=== PATIENT | female | born 1945 | race Caucasian/White ===

== ENCOUNTER 2016-07-11 05:33 | Emergency (ER) | payer OTHER ==
[~2016-07-11] VITALS: Ht 154.9 cm; Wt 128.0 kg
[~2016-07-11 05:33] MED LIST: ALBU1AER9 INH; ASPI81TA28 PO; ATOR-22 PO; BENZ100C6 PO; CALC1CAP36 PO; CHOL1000 PO; FERR325T PO; FRS/40 PO; GLIM4TAB2 PO; LISI-729 PO; METO50TA7 PO; MULT-506 PO; OMEG10007 PO; POTA10CA28 PO; PRLSR20 PO; SITA50TA PO; TRAM-453 PO
[2016-07-11 05:35] VITALS: TEMP 37.1; Ht 154.9 cm; Wt 128.0 kg
--- NOTE | 2016-07-11 06:05 | EMERGENCY ROOM VISIT NOTE ---
History Report prepared by Ronald: Srikanth Mosqueda Under the Supervision of: Dr. Shelly Nogueira M.D. First contact with patient: 05:44 Chief Complaint: ABDOMINAL PAIN Stated Complaint: BACK PAIN,ABD PAIN Nursing Triage Summary: c/o abdominal pain and back pain. has had a cough for 2 weeks. History of Present Illness The patient is a 70 year old female who presents to the Emergency Room with complaints of persistent upper abdominal pain since she woke up at 0400 this morning. The patient also has pain in her upper back. The pain is worsened when she coughs. She complains of nausea but denies vomiting. She also denies any fevers. The patient has had cold symptoms recently. The patient wears 1L of oxygen at home. Source of History: patient Onset: 0400 Position: abdomen (upper) Timing: other (persistent) Modifying Factors (Worsening): other (cough) Associated Symptoms: + back pain, + nausea, No fevers, No vomiting Review of Systems See HPI for pertinent positives & negatives. A total of 10 systems reviewed and were otherwise negative. Past Medical & Surgical Medical Problems: (1) COPD (chronic obstructive pulmonary disease) Family History Patient reports no known family medical history. Social History Smoking Status: Never Smoker Marital Status: Occupation Status: retired Current/Historical Medications Scheduled Albiglutide (Tanzeum), 50 MG INJ WK Albuterol Sulfate (Proair Respiclick), 2 PUFFS PO QID Aspirin (Aspirin Ec), 81 MG PO QAM Atorvastatin (Lipitor), 20 MG PO HS Calcitriol (Calcitriol), 0.25 MCG PO DAILY Cholecalciferol (Vitamin D-3), 400 UNIT PO DAILY Ferrous Sulfate (Ferrous Sulfate), 325 MG PO BID Fish Oil (Hurlock-3), 1 CAP PO BID Furosemide (Lasix), 40 MG PO QAM Insulin Glargine (Lantus Solostar), 34 UNITS SC QPM Lisinopril (Zestril), 5 MG PO QAM Metformin Hcl Er (Glucophage Er), 1,000 MG PO QAM Metoprolol Succ (Toprol Xl) (Toprol-Xl), 50 MG PO QAM Multivitamin (Multivitamin), 1 TAB PO QAM Omeprazole (Prilosec), 20 MG PO QAM Oxygen (Oxygen), 1 LITER NA CONTINOUS Potassium Chloride (Micro-K Ext Rel), 10 MEQ PO QAM Scheduled PRN Benzonatate (Tessalon Perles), 100 MG PO TID PRN for Cough Fexofenadine Hcl (Crissy Allergy), 1 TAB PO DAILY PRN for ALLERGIES Tramadol Hcl (Ultram), 50 MG PO Q6 PRN for PRN Allergies Coded Allergies: No Known Allergies (Verified , 02/18/16) Physical Exam Vital Signs Date Time Temp Pulse Resp B/P Pulse Ox O2 Delivery O2 Flow Rate FiO2 07/11/16 07:50 86 16 131/90 96 Nasal Cannula 1.0 07/11/16 06:34 65 07/11/16 06:18 69 20 123/68 95 Nasal Cannula 1.0 07/11/16 06:17 95 Nasal Cannula 1.0 07/11/16 06:17 95 Nasal Cannula 1.0 07/11/16 05:35 37.1 83 22 161/64 95 Room Air 1.0 Physical Exam Vital signs reviewed. General: Obese, chronically ill-appearing, no significant distress. HEENT: No scleral icterus, PERRLA, neck supple. Atraumatic. Cardiovascular: Regular rate and rhythm, no extra sounds. Pulmonary: Clear to auscultation bilaterally, normal work of breathing. Nasal cannula oxygen in place. Abdomen: Tender to palpation of the bilateral upper abdomen, minimal tympani to percussion. Musculoskeletal: Atraumatic, no peripheral edema. Neurologic: Patient awake alert and oriented x 3 Skin: Warm, dry, no rash Medical Decision & Procedures Laboratory Results 07/11/16 06:25 Red Blood Count 3.48, Mean Corpuscular Volume 88.5, Mean Corpuscular Hemoglobin 29.6, Mean Corpuscular Hemoglobin Concent 33.4, Mean Platelet Volume 9.2, Neutrophils (%) (Auto) 69.9, Lymphocytes (%) (Auto) 20.9, Monocytes (%) (Auto) 6.4, Eosinophils (%) (Auto) 2.1, Basophils (%) (Auto) 0.4, Neutrophils # (Auto) 5.25, Lymphocytes # (Auto) 1.57, Monocytes # (Auto) 0.48, Eosinophils # (Auto) 0.16, Basophils # (Auto) 0.03 07/11/16 06:25 Test 07/11/16 00:00 07/11/16 06:25 07/11/16 06:36 Urine Color YELLOW Urine Appearance CLEAR (CLEAR) Urine pH 5.5 (4.5-7.5) Urine Specific Davey 1.014 (1.000-1.030) Urine Protein NEG (NEG) Urine Glucose (UA) NEG (NEG) Urine Ketones NEG (NEG) Urine Occult Blood 1+ (NEG) Urine Nitrite NEG (NEG) Urine Bilirubin NEG (NEG) Urine Urobilinogen NEG (NEG) Urine Leukocyte Esterase NEG (NEG) Urine WBC (Auto) 0 /hpf (0-5) Urine RBC (Auto) 5-10 /hpf (0-4) Urine Hyaline Casts (Auto) 1-5 /lpf (0-5) Urine Epithelial Cells (Auto) >30 /lpf (0-5) Urine Bacteria (Auto) NEG (NEG) White Blood Count 7.51 K/uL (4.8-10.8) Red Blood Count 3.48 M/uL (4.2-5.4) Hemoglobin 10.3 g/dL (12.0-16.0) Hematocrit 30.8 % (37-47) Mean Corpuscular Volume 88.5 fL (80-100) Mean Corpuscular Hemoglobin 29.6 pg (25-34) Mean Corpuscular Hemoglobin Concent 33.4 g/dl (32-36) Platelet Count 255 K/uL (130-400) Mean Platelet Volume 9.2 fL (7.4-10.4) Neutrophils (%) (Auto) 69.9 % Lymphocytes (%) (Auto) 20.9 % Monocytes (%) (Auto) 6.4 % Eosinophils (%) (Auto) 2.1 % Basophils (%) (Auto) 0.4 % Neutrophils # (Auto) 5.25 K/uL (1.4-6.5) Lymphocytes # (Auto) 1.57 K/uL (1.2-3.4) Monocytes # (Auto) 0.48 K/uL (0.11-0.59) Eosinophils # (Auto) 0.16 K/uL (0-0.5) Basophils # (Auto) 0.03 K/uL (0-0.2) RDW Standard Deviation 43.6 fL (36.4-46.3) RDW Coefficient of Variation 13.5 % (11.5-14.5) Immature Granulocyte % (Auto) 0.3 % Immature Granulocyte # (Auto) 0.02 K/uL (0.00-0.02) Anion Gap 6.0 mmol/L (3-11) Est Creatinine Clear Calc Drug Dose 35.6 ml/min Estimated GFR () 32.0 Estimated GFR (Non- 27.6 BUN/Creatinine Ratio 17.4 (10-20) Calcium Level 9.1 mg/dl (8.5-10.1) Magnesium Level 1.3 mg/dl (1.8-2.4) Total Bilirubin 0.7 mg/dl (0.2-1) Direct Bilirubin 0.3 mg/dl (0-0.2) Aspartate Amino Transf (AST/SGOT) 111 U/L (15-37) Alanine Aminotransferase (ALT/SGPT) 84 U/L (12-78) Alkaline Phosphatase 177 U/L (45-117) Total Creatine Kinase 88 U/L (26-192) Creatine Kinase MB 1.2 ng/ml (0.5-3.6) Creatine Kinase MB Ratio 1.4 (0-3.0) Total Protein 7.9 gm/dl (6.4-8.2) Albumin 3.2 gm/dl (3.4-5.0) Lipase 308 U/L (73-393) Bedside Troponin I 0.000 ng/ml (0-0.045) Laboratory results per my review. Medications Administered Medications (Trade) Dose Ordered Sig/Kwame Route Start Time Stop Time Status Last Admin Dose Admin Morphine Sulfate (MoRPHine SULFATE INJ) 4 mg NOW STAT IV 07/11/16 06:20 07/11/16 06:22 DC 07/11/16 06:36 4 MG Ondansetron HCl 4 mg 4 mg NOW STAT IV 07/11/16 06:20 07/11/16 06:22 DC 07/11/16 06:35 4 MG Sodium Chloride (Nss 1000ml) 1,000 ml @ 125 mls/hr Q8H STAT IV 07/11/16 06:20 07/11/16 14:19 07/11/16 06:36 125 MLS/HR Albuterol/ Ipratropium (Duoneb) 3 ml NOW STAT INH 07/11/16 06:34 07/11/16 06:36 DC 07/11/16 06:42 3 ML Magnesium Sulfate (Magnesium Sulfate) 1 gm NOW STAT IV 07/11/16 07:33 07/11/16 07:34 DC 07/11/16 07:47 1 GM ECG Indication: abdominal pain Rate (beats per minute): 65 Rhythm: normal sinus Findings: RBBB, no ectopy, other (repolarization abnormality) ED Course 0600: Past medical records reviewed. The patient was evaluated in room A11b. A complete history and physical examination was performed. 0620: NSS 1000 ml @ 125 mls/hr, Zofran 4 mg IV, Morphine Sulfate 4 mg IV. 0634: DuoNeb 3 ml INH. 0733: Magnesium Sulfate 1 gm IV. Medical Decision Differential diagnosis includes kidney stone, bowel obstruction, gastritis, pancreatitis, cholecystitis. This patient was evaluated and appeared to be in no significant distress. IV access was obtained and laboratory work was drawn. The patient was placed on the hunter and hydrated with normal saline solution. Patient was given morphine 4 mg IV and Zofran 4 mg IV for her discomfort. Patient's laboratory work reveals a normal white blood cell count, mildly elevated AST and ALT. Total bilirubin is also mildly elevated. Patient has hypomagnesemic at 1.3. She was given 1 g of IV magnesium. CT scan of the abdomen and pelvis reveals cholelithiasis without clear evidence of an acute cholecystitis all of the gallbladder is distended. Given the patient's complaints, her obese body habitus and CT findings, an ultrasound of right upper quadrant has been ordered. The case has been signed out to Dr. Deal at the change of shift, pending ultrasonography. On reevaluation the patient was informed of the plan. She stated her pain had largely resolved, although admits to eating a turkey dinner last night. She was resting comfortably. Impression Primary Impression: Epigastric abdominal pain Additional Impression: Cholelithiasis Scribe Attestation The scribe's documentation has been prepared under my direction and personally reviewed by me in its entirety. I confirm that the note above accurately reflects all work, treatment, procedures, and medical decision making performed by me. Departure Information Referrals Tasneem Francisco DO (PCP) Patient Instructions My [facility] Problem Qualifiers Additional Impression: Cholelithiasis Cholelithiasis location: gallbladder Cholecystitis presence: without cholecystitis Biliary obstruction: without biliary obstruction Qualified Codes: K80.20 - Calculus of gallbladder without cholecystitis without obstruction
[2016-07-11 06:17] VITALS: O2SAT 95
[2016-07-11] MEDS ORDERED: MoRPHine SULFATE 4 MG/ML 1 ML CARP\\VIAL IV STA (06:20)
[2016-07-11] MEDS ORDERED: ONDANSETRON INJ 2 MG/ML 2 ML VIAL IV STA (06:20)
[2016-07-11] MEDS ORDERED: SODIUM CHLORIDE 0.9% 1000ML 1,000 ML IV STA (06:20)
[2016-07-11 06:33] LABS: URINE APPEARANCE CLEAR (CLEAR); URINE BILIRUBIN NEG (NEG); URINE COLOR YELLOW; URINE EPITHELIAL CELL AUTO >30 /lpf (0-5); URINE NITRITE NEG (NEG); URINE PH 5.5 (4.5-7.5); URINE SPECIFIC GRAVITY 1.014 (1.000-1.030); UROBILINOGEN NEG (NEG); ZZUR CULT IF INDIC CLEAN CATCH NO
[2016-07-11] MEDS ORDERED: ALBUT/IPRATROP 3MG/0.5MG NEB 3 ML VIAL INH STA (06:34)
[2016-07-11 06:35] LABS: MANUAL MICROSCOPIC REQUIRED? NO; REVIEW REQ? NO
[2016-07-11 06:39] LABS: BASO % 0.4 %; BASO ABS # 0.03 K/uL (0-0.2); COMPLETE YES; EOS % 2.1 %; HEMATOCRIT 30.8 % (37-47); IG% 0.3 %; LYMPH % 20.9 %; LYMPH ABS # 1.57 K/uL (1.2-3.4); MEAN CELL VOLUME 88.5 fL (80-100); MEAN CORPUSCULAR HEMOGLOBIN 29.6 pg (25-34); MEAN CORPUSCULAR HGB CONC 33.4 g/dl (32-36); MEAN PLATELET VOLUME 9.2 fL (7.4-10.4); MONO % 6.4 %; NEUT % 69.9 %; PLATELET COUNT 255 K/uL (130-400); RED BLOOD COUNT 3.48 M/uL (4.2-5.4); WHITE BLOOD COUNT 7.51 K/uL (4.8-10.8)
[2016-07-11] MEDS ORDERED: ALBU18002 PO (06:44)
[2016-07-11] MEDS ORDERED: METF500T5 PO (06:48)
[2016-07-11] MEDS ORDERED: INSDGIPEN SC (06:48)
[2016-07-11] MEDS ORDERED: OXGN (06:51)
[2016-07-11] MEDS ORDERED: CHOL1TAB PO (06:51)
[2016-07-11] MEDS ORDERED: FEXO1TAB49 PO (06:52)
[2016-07-11] MEDS ORDERED: ALBI1INJ2 INJ (06:53)
[2016-07-11 06:56] LABS: BUN/CREATININE RATIO 17.4 (10-20); CALCIUM 9.1 mg/dl (8.5-10.1); CREATININE 1.8 mg/dl (0.60-1.20); MAGNESIUM 1.3 mg/dl (1.8-2.4); POTASSIUM 4.3 mmol/L (3.5-5.1)
[2016-07-11 06:59] LABS: CKMB/CK RATIO 1.4 (0-3.0)
[2016-07-11] MEDS ORDERED: MAGNESIUM SULFATE 1GM / D5W 1 GM BAG IV STA (07:33)
--- NOTE | 2016-07-11 08:08 | DIAGNOSTIC IMAGING REPORT ---
ABDOMEN AND PELVIS CT WITHOUT CONTRAST CT DOSE: 1646.91 mGy.cm HISTORY: epigastric abdominal pain TECHNIQUE: Multiaxial CT images of the abdomen and pelvis were performed without contrast. COMPARISON STUDY: None. FINDINGS: Mild dependent changes seen at the lung bases. No pneumoperitoneum. No pneumatosis. No suspicious lytic or blastic osseous lesions. There are few tiny stones within the gallbladder. Question of minimal pericholecystic inflammatory change. The unenhanced liver, pancreas, spleen, and adrenal glands are unremarkable. Lobular appearance the bilateral kidneys which may be due to scarring. No retroperitoneal lymphadenopathy. The uterus, bilateral adnexa, and bladder are unremarkable. Suboptimal evaluation for bowel pathology due to the lack of intravenous and oral contrast. However, there is no definite bowel wall thickening or obstruction. Colonic diverticulosis. The visualized portions of the appendix are unremarkable. IMPRESSION: 1. No bowel wall thickening or obstruction. 2. No renal stones or hydronephrosis. 3. Cholelithiasis. Question of minimal pericholecystic inflammatory change. If the patient is complaining of right upper quadrant pain then consider abdominal ultrasound to exclude developing acute cholecystitis. 4. Colonic diverticulosis. Electronically signed by: Reinaldo Adams M.D. 07/11/2016 8:07 AM Dictated Date/Time: 07/11/2016 7:56 AM
--- NOTE | 2016-07-11 10:06 | DIAGNOSTIC IMAGING REPORT ---
ABDOMINAL ULTRASOUND, RIGHT UPPER QUADRANT HISTORY: epigastric pain, elevated LFT. COMPARISON: Abdomen and pelvis CT 07/05/2015. FINDINGS: Pancreas: The pancreas demonstrates a normal echotexture. Liver: Mildly enlarged measuring 20.6 cm in length. Echogenic consistent with fatty change Gallbladder: A few small stones and sludge. No gallbladder wall thickening. CBD: 4 mm. Right kidney: No hydronephrosis. IMPRESSION: 1. A few small stones and sludge within the gallbladder. No gallbladder wall thickening. 2. Hepatomegaly demonstrating fatty change. Electronically signed by: Reinaldo Adams M.D. 07/11/2016 10:04 AM Dictated Date/Time: 07/11/2016 10:03 AM
[2016-07-11 10:10] VITALS: BP 125/68; PULSE 93; O2SAT 92
[2016-07-11] MEDS ORDERED: MAGN400T5 PO (10:15)
--- NOTE | 2016-07-11 10:18 | EMERGENCY ROOM VISIT NOTE ---
ED Visit Note First contact with patient: 08:32 I assumed care at the change of shift, Dr. Shelly Nogueira had been the initial physician. The patient's gallbladder ultrasound has returned. She has gallstones but no evidence for acute cholecystitis. On reexam, the patient has no abdominal pain, she feels "great". She would like to be discharged home. All her symptoms have resolved. The patient's magnesium level was low, she was given some IV magnesium while in our department. She is being discharged on a magnesium tablet for 1 next week. She will see her doctor in a day or so for a recheck in the office. She has agreed to return to this ER for vomiting, increasing pain or worsening symptoms. She will stay well hydrated. The patient understands that she has gallstones and she may have had a bout of biliary colic today prompting her ER visit.
== END 2016-07-11 10:30 | disposition home or self-care (01) ==
LOC: C.EDB 05:34 → C.EDA 10:30
DX: R10.13 Epigastric pain (principal); K80.20 Calculus of gallbladder without cholecystitis without obstruction; I45.10 Unspecified right bundle-branch block; J44.9 Chronic obstructive pulmonary disease, unspecified; Z79.82 Long term (current) use of aspirin; Z79.84 Long term (current) use of oral hypoglycemic drugs; Z79.899 Other long term (current) drug therapy

== ENCOUNTER 2020-10-13 14:43 | Inpatient (IN) ==
[2020-10-13] MEDS ORDERED: SODIUM CHLORIDE 0.9% 500 ML IV SCH (14:45)
[2020-10-13] MEDS ORDERED: SODIUM CHLORIDE 0.9% 1000ML 1,000 ML IV SCH (14:45)
[2020-10-13] MEDS ORDERED: DAPTOmycin 525 MG in SYRINGE 0 ML IV ONE (14:52)
[2020-10-13] MEDS ORDERED: cefTRIAXone SODIUM 2,000 MG/70 ML BAG IV STA (14:52)
--- NOTE | 2020-10-13 15:32 | Emergency Department Note ---
Impression & Plan Cellulitis of left leg, Weakness, Fall, UTI (urinary tract infection) ED Provider Note INFORMANT: Patient ED PROVIDER(S): Bucky Dudley MD CHIEF COMPLAINT: Fall PLAN: Disposition: Admitted Condition: Good Outpatient prescription management: none Referral: None MEDICAL DECISION MAKING: Patient presented after a fall and being on the floor. She had physical findings concerning for left lower extremity cellulitis. She denied suffering any significant injury. Blood work and imaging were ordered. Patient did not have any significant headache, chest pain or abdominal pain. There is no deformities or tenderness on her extremity examination other than the area of cellulitis. She had a mild leukocytosis on CBC. Chemistry panel was unremarkable except for hyperglycemia. Patient's urinalysis is concerning for infection. She was treated with Rocephin and daptomycin for broad-spectrum coverage. The patient was also found to have mild rhabdo. She was gently hydrated. Consultation was made with the [facility]. Patient was evaluated by Dr. Patel and admitted for further management. Triage Nursing notes reviewed and agree them. Vital Signs: reviewed and remarkable for no significant abnormalities Differential diagnosis: Infection, dehydration, metabolic abnormality, hypo/hyperglycemia, electrolyte disturbance, anemia, hypoxia, cardiac sources, intracerebral event, toxicologic, neurologic, as well as other pathologies. Diagnostics interpreted by me: Cardiac Monitoring:Cardiac monitoring ordered by me: The patient was placed on continuous cardiac monitoring and observed. It revealed a normal sinus rhythm at 73 beats per minute without ectopy or evidence of dysrhythmia. Imaging studies: Chest x-ray. Findings: A chest x-ray was performed and revealed no pneumothorax, effusion, infiltrate, pulmonary edema, free air under the diaphragm, or wide mediastinum. Impression: No acute disease. Head CT: A noncontrast CT scan of the head was performed and was negative for tumor, fracture, intracranial hemorrhage, or other acute pathology. HPI: The patient is a 74 year old female who presents to the Emergency Room with complaints of weakness. This started over the last 3 days and is persistent. The patient has had several controlled falls and has been unable to get up. EMS notes that she was lying on the floor of her bathroom. There was urine all around. The apartment was in shambles. The patient also notes the following associated symptoms, left leg redness. Patient denies any injury from her fall. The patient has been given no medication for relieving factors. Current pain is rated as 0/10. Patient is diabetic. Patient son was giving her her insulin while she was on the floor. EMS noted that she was refusing to come. Pt denies LOC, headache, fevers, chills, diaphoresis, visual changes, neck pain, chest pain, breathing difficulties, nausea, vomiting, abdominal pain, back pain, melena, hematochezia, urinary symptoms, numbness, lymphadenopathy, or other com plaints. ROS: See above HPI for pertinent positives & negatives. A total of 10 systems reviewed and were otherwise negative. PAST MEDICAL HISTORY:See Below , COPD PAST SURGICAL HISTORY:See Below, FAMILY HISTORY:See Below SOCIAL HISTORY:See Below, lives with son HOME MEDICATIONS:See Below ALLERGIES:See Below VITALS:See Below PHYSICAL EXAMINATION: GENERAL: Awake, alert, [id number], in no distress HENT: Normocephalic, atraumatic. Oropharynx unremarkable. EYES: Normal conjunctiva. Sclera non-icteric. NECK: Inspection normal. Non-tender. Supple. No nuchal rigidity. FROM. No masses. RESPIRATORY: Clear to auscultation. No wheezes. No rales. Normal respiratory effort. CARDIAC: Borderline tachycardic rate. Normal rhythm. No murmurs. No rubs. Extremities warm and well perfused. Pulses equal. No JVD. GI: Soft, non-distended. No tenderness to palpation. No rebound or guarding. No masses. RECTAL: Deferred. MUSCULOSKELETAL: Atraumatic. Chest examination reveals no tenderness. There is no CVA tenderness to palpation. No joint edema. LOWER EXTREMITIES: Calves are equal size bilaterally and non-tender. 2+ edema. Significant left lower extremity erythematous warmth and discoloration. NEURO: Normal sensorium. No sensory or motor deficits noted. SKIN: No rash or jaundice noted. Bucky Dudley MD Past Med/Surg History Medical History (Updated 10/13/20 @ 21:54 by Bucky Dudley MD) Aortic valve stenosis CKD (chronic kidney disease) stage 3, GFR 30-59 ml/min Diabetes Diastolic CHF Dyslipidemia GERD (gastroesophageal reflux disease) HTN (hypertension) Morbid obesity with BMI of 50.0-59.9, adult Obstructive sleep apnea Paroxysmal A-fib Pulmonary HTN Vitamin D deficiency Surgical History (Updated 04/08/20 @ 09:13 by Mone Hooper RN) S/P AVR Social History Smoking Status: Never smoker Feels Safe at Home: Yes Allergies Allergies Allergy/AdvReac Type Severity Reaction Status Date / Time No Known Allergies Allergy Mild Verified 10/13/20 16:07 Home Meds Home Medications Medication Instructions Recorded Confirmed aspirin 81 mg chewable tablet 81 mg PO DAILY 04/08/20 10/13/20 atorvastatin 20 mg tablet 20 mg PO DAILY 04/08/20 10/13/20 ferrous sulfate 325 mg (65 mg 325 mg PO BID 04/08/20 10/13/20 iron) tablet insulin aspart U-100 100 unit/mL 10 unit SUBCUT TIDM 04/08/20 10/13/20 (3 mL) subcutaneous pen insulin glargine 100 unit/mL (3 60 unit SUBCUT QPM ml 04/08/20 10/13/20 mL) subcutaneous pen lisinopril 5 mg tablet 5 mg PO DAILY 04/08/20 10/13/20 metformin 500 mg tablet 500 mg PO DAILY 04/08/20 10/13/20 metoprolol succinate 50 mg capsule 50 mg PO DAILY 04/08/20 10/13/20 sprinkle, ext. release 24 hr omega-3 fatty acids 1,000 mg 1,000 mg PO BID 04/08/20 10/13/20 capsule potassium chloride 10 mEq 10 meq PO DAILY 04/08/20 10/13/20 capsule,extended release tramadol 50 mg tablet 50 mg PO Q6H PRN 04/08/20 10/13/20 Results & Data (ED) Vital Signs Vital Signs - 24 hr 10/13/20 14:44 10/13/20 14:45 10/13/20 16:46 Temperature Temperature Source Pulse Rate 118 H 89 Pulse Rate [Apical] 86 Pulse Rhythm [Apical] Regular Respiratory Rate 12 20 20 Respiratory Effort / Characteristics Non-Labored Non-Labored Respiratory Depth Normal Blood Pressure 181/86 H Blood Pressure [Right Arm] 167/75 H Blood Pressure Mean 117 Blood Pressure Mean [Right Arm] 105 Pulse Oximetry 97 93 92 Oxygen Delivery Method Room Air Room Air Room Air Oxygen Flow Rate Sepsis Recent Fever Within 48 Hours No Sepsis New/Unexplained Change in Mental Status N/A Sepsis Action Taken by Nursing No Action Required 10/13/20 17:15 Temperature 36.9 C Temperature Source Oral Pulse Rate Pulse Rate [Apical] 87 Pulse Rhythm [Apical] Regular Respiratory Rate 20 Respiratory Effort / Characteristics Respiratory Depth Normal Blood Pressure Blood Pressure [Right Arm] 171/80 H Blood Pressure Mean Blood Pressure Mean [Right Arm] 110 Pulse Oximetry 99 Oxygen Delivery Method Nasal Cannula Oxygen Flow Rate 2 Sepsis Recent Fever Within 48 Hours Sepsis New/Unexplained Change in Mental Status Sepsis Action Taken by Nursing Laboratory Data Result diagrams: 10/13/20 15:41 10/13/20 15:41 Lab Results 10/13/20 10/13/20 10/13/20 Range/Units 15:41 15:41 15:41 WBC 11.32 H (4.8-10.8) K/uL RBC 4.28 (4.2-5.4) M/uL Hgb 12.8 (12.0-16.0) g/dL Hct 39.0 (37-47) % MCV 91.1 (80-100) fL MCH 29.9 (25-34) pg MCHC 32.8 (32-36) g/dL RDW Std Deviation 49.8 H (36.4-46.3) fL RDW Coeff of Jacqueline 14.8 H (11.5-14.5) % Plt Count 262 (130-400) K/uL MPV 10.0 (7.4-10.4) fL Immature Gran % (Auto) 0.2 % Neut % (Auto) 86.6 % Lymph % (Auto) 7.7 % [place] % (Auto) 5.0 % Eos % (Auto) 0.3 % Baso % (Auto) 0.2 % Neut # (Auto) 9.81 H (1.4-6.5) K/uL Lymph # (Auto) 0.87 L (1.2-3.4) K/uL [place] # (Auto) 0.57 (0.11-0.59) K/uL Eos # (Auto) 0.03 (0-0.5) K/uL Baso # (Auto) 0.02 (0-0.2) K/uL Immature Gran # (Auto) 0.02 (0.00-0.02) K/uL Sodium 136 (136-145) mmol/L Potassium 3.8 (3.5-5.1) mmol/L Chloride 99 (98-107) mmol/L Carbon Dioxide 27 (21-32) mmol/L Anion Gap 11.0 (3-11) BUN 29 H (7-18) mg/dl Creatinine 1.31 H (0.6-1.2) mg/dl Est Cr Clr Drug Dosing 47.9 ml/min Est GFR ( Amer) 45.7 ml/min Est GFR (Non-Af Amer) 39.5 ml/min BUN/Creatinine Ratio 22.4 H (10-20) Glucose 285 H (70-99) mg/dl Lactate 1.8 (0.4-2.0) mmol/L Calcium 9.4 (8.5-10.1) mg/dl Magnesium 1.4 L (1.8-2.4) mg/dl Total Bilirubin 1.0 (0.2-1) mg/dl AST 114 H (15-37) U/L ALT 66 (12-78) U/L Alkaline Phosphatase 105 (45-117) U/L Total Creatine Kinase 3325 H (26-192) U/L Troponin I 0.033 (0-0.045) ng/ml Total Protein 8.1 (6.4-8.2) gm/dl Albumin 2.6 L (3.4-5.0) gm/dl Globulin 5.5 H (2.5-4.0) gm/dl Albumin/Globulin Ratio 0.5 L (0.9-2) TSH 1.910 (0.300-4.500) uIu/ml Urine Color Urine Appearance (Clear) Urine pH (4.5-7.5) Ur Specific [place] (1.000-1.030) Urine Protein (Negative) Urine Glucose (UA) (Negative) Urine Ketones (Negative) Urine Blood (Negative) Urine Nitrite (Negative) Urine Bilirubin (Negative) Urine Urobilinogen (Negative) Ur Leukocyte Esterase (Negative) Urine WBC (Auto) (0-5) /hpf Urine RBC (Auto) (0-4) /hpf U Hyaline Cast (Auto) (0-5) /lpf U Epithel Cells (Auto) (0-5) /lpf Urine Bacteria (Auto) (Negative) Granular Casts (0) /lpf Urine Mucus (None Prsent) COVID-19 Eval Order SARS-CoV-2 (PCR) (Negative) 10/13/20 10/13/2010/13/21 Range/Units 15:56 16:50 16:50 WBC (4.8-10.8) K/uL RBC (4.2-5.4) M/uL Hgb (12.0-16.0) g/dL Hct (37-47) % MCV (80-100) fL MCH (25-34) pg MCHC (32-36) g/dL RDW Std Deviation (36.4-46.3) fL RDW Coeff of Jacqueline (11.5-14.5) % Plt Count (130-400) K/uL MPV (7.4-10.4) fL Immature Gran % (Auto) % Neut % (Auto) % Lymph % (Auto) % [place] % (Auto) % Eos % (Auto) % Baso % (Auto) % Neut # (Auto) (1.4-6.5) K/uL Lymph # (Auto) (1.2-3.4) K/uL [place] # (Auto) (0.11-0.59) K/uL Eos # (Auto) (0-0.5) K/uL Baso # (Auto) (0-0.2) K/uL Immature Gran # (Auto) (0.00-0.02) K/uL Sodium (136-145) mmol/L Potassium (3.5-5.1) mmol/L Chloride (98-107) mmol/L Carbon Dioxide (21-32) mmol/L Anion Gap (3-11) BUN (7-18) mg/dl Creatinine (0.6-1.2) mg/dl Est Cr Clr Drug Dosing ml/min Est GFR ( Amer) ml/min Est GFR (Non-Af Amer) ml/min BUN/Creatinine Ratio (10-20) Glucose (70-99) mg/dl Lactate (0.4-2.0) mmol/L Calcium (8.5-10.1) mg/dl Magnesium (1.8-2.4) mg/dl Total Bilirubin (0.2-1) mg/dl AST (15-37) U/L ALT (12-78) U/L Alkaline Phosphatase (45-117) U/L Total Creatine Kinase (26-192) U/L Troponin I (0-0.045) ng/ml Total Protein (6.4-8.2) gm/dl Albumin (3.4-5.0) gm/dl Globulin (2.5-4.0) gm/dl Albumin/Globulin Ratio (0.9-2) TSH (0.300-4.500) uIu/ml Urine Color Yellow Urine Appearance Cloudy A (Clear) Urine pH 5.0 (4.5-7.5) Ur Specific [place] 1.027 (1.000-1.030) Urine Protein 2+ H (Negative) Urine Glucose (UA) 3+ H (Negative) Urine Ketones 2+ H (Negative) Urine Blood 3+ H (Negative) Urine Nitrite Positive A (Negative) Urine Bilirubin Negative (Negative) Urine Urobilinogen Negative (Negative) Ur Leukocyte Esterase 1+ H (Negative) Urine WBC (Auto) >30 H (0-5) /hpf Urine RBC (Auto) 5-10 H (0-4) /hpf U Hyaline Cast (Auto) 1-5 (0-5) /lpf U Epithel Cells (Auto) >30 H (0-5) /lpf Urine Bacteria (Auto) 4+ H (Negative) Granular Casts 10-20 H (0) /lpf Urine Mucus Present A (None Prsent) COVID-19 Eval Order Covid19 at [facility] SARS-CoV-2 (PCR) NEGATIVE (Negative) Administered Medications Ferrous Sulfate (Ferrous Sulfate 325 Mg Tab) 325 mg PO BID SIMEON Stop: 11/12/20 20:59 Last Admin: 10/13/20 21:01 Dose: 325 mg Documented by: [id number] Fish Oil ([place]-3 (Purified Fish Oil) 1 Gm Cap) 1 gm PO BID SIMEON Stop: 11/12/20 20:59 Last Admin: 10/13/20 21:00 Dose: 1 gm Documented by: [id number] Heparin Sodium (Porcine) (Heparin Sod 5,000 Unit/0.5 Ml Vial) 7,500 units SQ Q8 SIMEON Stop: 11/12/20 21:59 Last Admin: 10/13/20 21:37 Dose: 7,500 units Documented by: [id number] Sodium Chloride (Nss 1000ml) 1,000 mls @ 125 mls/hr IV .Q8H SIMEON Stop: 10/13/20 22:44 Last Admin: 10/13/20 16:58 Dose: 125 mls/hr Documented by: [id number] Potassium Chloride/Sodium Chloride (Normal Saline W/20 Meq Kcl) 20 meq in 1,000 mls @ 100 mls/hr IV .Q10H SIMEON Stop: 10/15/20 01:29 Last Admin: 10/13/20 19:50 Dose: 100 mls/hr Documented by: [id number] Insulin Aspart (Insulin Aspart 100 Units/Ml 3 Ml Pen) 10 units SQ ACHS SIMEON Stop: 11/12/20 20:59 Last Admin: 10/13/20 21:06 Dose: 10 units Documented by: [id number] Cosigned by: [id number] Insulin Glargine (Insulin Glargine Solostar 100 Units/Ml 3 Ml Pen) 60 units SQ QPM SIMEON Stop: 11/12/20 20:59 Last Admin: 10/13/20 21:01 Dose: 60 units Documented by: [id number] Cosigned by: [id number] Lisinopril (Lisinopril 5 Mg Tab) 5 mg PO DAILY SIMEON Stop: 11/12/20 19:31 Last Admin: 10/13/20 21:00 Dose: 5 mg Documented by: [id number] Metoprolol Succinate (Metoprolol Succ 50mg Ext Rel Tab) 50 mg PO DAILY SIMEON Stop: 11/12/20 19:59 Last Admin: 10/13/20 21:00 Dose: 50 mg Documented by: [id number] Discontinued Medications Sodium Chloride (Nss) 500 mls @ 999 mls/hr IV .Q31M SIMEON Stop: 10/13/20 15:15 Last Infusion: 10/13/20 16:59 Dose: 0 mls/hr Documented by: [id number] Admin: 10/13/20 16:12 Dose: 999 mls/hr Documented by: [id number] Ceftriaxone Sodium (Rocephin) 2,000 mg in 70 mls @ 140 mls/hr IV NOW [facility] Stop: 10/13/20 15:21 Last Infusion: 10/13/20 16:46 Dose: 0 mls/hr Documented by: [id number] Admin: 10/13/20 16:16 Dose: 140 mls/hr Documented by: [id number] Daptomycin 525 mg/ Syringe 10.5 mls @ 5.25 mls/min IV NOW ONE; Protocol Stop: 10/13/20 14:53 Last Admin: 05/31/21 16:13 Dose: 5.25 mls/min Documented by: [id number] Magnesium Sulfate/Dextrose (Magnesium Sulfate / D5w) 1 gm in 100 mls @ 50 mls/hr IV Q2H SIMEON Stop: 10/13/20 21:44 Last Admin: 10/13/20 21:37 Dose: 50 mls/hr Documented by: [id number] Imaging Data Radiologist's Impression: Chest X-Ray 10/13/20 14:45 XR chest 1V portable CLINICAL HISTORY: weakness COMPARISON STUDY: 02/18/2016 FINDINGS: The heart is enlarged. There are postsurgical changes of a midline sternotomy. There is no failure. There is no focal pulmonary consolidation. There are no pleural effusions.[ IMPRESSION: Cardiomegaly. No acute findings. ACT 112: Negative or not required by law. Electronically signed by: Gustavo Arriaga M.D. 10/13/2020 4:[address] 10/13/20 14:45 CT head/brain wo con CLINICAL HISTORY: Head pain status post trauma COMPARISON STUDY: No previous studies for comparison. TECHNIQUE: Axial CT of the brain is performed from the vertex to the skull base. IV contrast was not administered for this examination. A dose lowering technique was utilized adhering to the principles of ALARA. CT DOSE: 614.27 mGy.cm FINDINGS: No intra or extra-axial mass lesions are visualized. There is no CT evidence of acute cortical infarction. There is no evidence of midline shift. There is no acute hemorrhage. No calvarial fractures are visualized. There are patchy white matter hypodensities likely on a small vessel basis. There is no evidence of pathologic ventricular dilatation. There is no evidence of acute sinusitis IMPRESSION: No acute intracranial findings ACT 112: Negative or not required by law. Electronically signed by: Gustavo Arriaga M.D. 10/13/2020 4:45 PM Discharge Plan Visit Data Chief Complaint: Fall Stated Complaint: multiple falls, laid for 12-24 hours ED Provider: Bucky Dudley Discharge Problem: Cellulitis of left leg, Weakness, Fall, UTI (urinary tract infection) Patient Disposition: Admitted As Inpatient Discharge Instructions Interventions: ED Discharge Assessment Last Done: 10/13/20 18:31
[2020-10-13 15:51] LABS: Basophils # (auto) 0.02 K/uL (0-0.2); Basophils % (auto) 0.2 %; Eosinophils # (auto) 0.03 K/uL (0-0.5); Eosinophils % (auto) 0.3 %; Hemoglobin 12.8 g/dL (12.0-16.0); Immature Granulocytes # (auto) 0.02 K/uL (0.00-0.02); Immature Granulocytes % (auto) 0.2 %; Lymphocytes # (auto) 0.87 K/uL (1.2-3.4); Lymphocytes % (auto) 7.7 %; Mean Corpuscular Hemoglobin 29.9 pg (25-34); Mean Corpuscular Hgb Conc 32.8 g/dL (32-36); Mean Corpuscular Volume 91.1 fL (80-100); Monocytes # (auto) 0.57 K/uL (0.11-0.59); Neutrophils # (auto) 9.81 K/uL (1.4-6.5); Neutrophils % (auto) 86.6 %; Platelet Count 262 K/uL (130-400); RDW Coefficient of Variation 14.8 % (11.5-14.5); RDW Standard Deviation 49.8 fL (36.4-46.3); Red Blood Count 4.28 M/uL (4.2-5.4); White Blood Count 11.32 K/uL (4.8-10.8)
[2020-10-13 16:10] LABS: Appearance Urine Cloudy (Clear); Bacteria Urine Automated 4+ (Negative); Bilirubin Urine Negative (Negative); Blood Urine 3+ (Negative); Color Urine Yellow; Epithelial Cell Urine Auto >30 /lpf (0-5); Glucose Urine UA 3+ (Negative); Ketones Urine 2+ (Negative); Leukocyte Esterase Urine 1+ (Negative); Nitrite Urine Positive (Negative); Protein Urine 2+ (Negative); Specific Gravity Urine 1.027 (1.000-1.030); Urobilinogen Urine Negative (Negative); WBC Urine Automated >30 /hpf (0-5)
[2020-10-13 16:12] LABS: Albumin Level 2.6 gm/dl (3.4-5.0); BUN Creatinine Ratio 22.4 (10-20); Calcium 9.4 mg/dl (8.5-10.1); Creatinine Clr Calc Pharmacy 47.9 ml/min; Est GFR (African American) 45.7 ml/min; Est GFR (Non-African American) 39.5 ml/min; Magnesium 1.4 mg/dl (1.8-2.4); Potassium 3.8 mmol/L (3.5-5.1)
[2020-10-13 16:27] LABS: Albumin Globulin Ratio 0.5 (0.9-2); Globulin 5.5 gm/dl (2.5-4.0); Thyroid Stimulating Hormone 1.91 uIu/ml (0.300-4.500); Total Protein 8.1 gm/dl (6.4-8.2); Troponin I 0.033 ng/ml (0-0.045)
--- NOTE | 2020-10-13 16:36 | XRay Report ---
XR chest 1V portable CLINICAL HISTORY: weakness COMPARISON STUDY: 02/18/2016 FINDINGS: The heart is enlarged. There are postsurgical changes of a midline sternotomy. There is no failure. There is no focal pulmonary consolidation. There are no pleural effusions.[ IMPRESSION: Cardiomegaly. No acute findings. ACT 112: Negative or not required by law. Electronically signed by: Gustavo Arriaga M.D. 10/13/2020 4:34 PM
[2020-10-13 16:39] LABS: Mucus Urine Present (None Prsent)
--- NOTE | 2020-10-13 16:46 | CT Scan Report ---
CT head/brain wo con CLINICAL HISTORY: Head pain status post trauma COMPARISON STUDY: No previous studies for comparison. TECHNIQUE: Axial CT of the brain is performed from the vertex to the skull base. IV contrast was not administered for this examination. A dose lowering technique was utilized adhering to the principles of ALARA. CT DOSE: 614.27 mGy.cm FINDINGS: No intra or extra-axial mass lesions are visualized. There is no CT evidence of acute cortical infarc tion. There is no evidence of midline shift. There is no acute hemorrhage. No calvarial fractures ar e visualized. There are patchy white matter hypodensities likely on a small vessel basis. There is no evidence of pathologic ventricular dilatation. There is no evidence of acute sinusitis IMPRESSION: No acute intracranial findings ACT 112: Negative or not required by law. Electronically signed by: Gustavo Arriaga M.D. 10/13/2020 4:45 PM
--- NOTE | 2020-10-13 17:49 | History & Physical Report ---
Date of Service October 13, 2020 Assessment & Plan (1) Cellulitis of left leg: Has bilateral leg cellulitis but is worse in the left side Blood cultures have been taken Started with intravenous ceftriaxone and daptomycin We will continue Dapto for now (2) Fall: Status post fall x2 since Tuesday last May be contributed by leg cellulitis with generalized weakness We will get PT and OT evaluation May need placement Mild rhabdomyolysis from fall CPK level is more than 3000 We will give a small amount of IV fluid Check CPK tomorrow Has hypomagnesemia We will supplement (3) Venous stasis ulcers of both lower extremities: We will get wound care involved (4) COPD (chronic obstructive pulmonary disease): No acute exacerbation at this time We will put albuterol inhalers as needed (5) Aortic valve stenosis: No significant cardiac symptoms (6) CKD (chronic kidney disease) stage 3, GFR 30-59 ml/min: Will monitor PRP We will provide cautious amount of intravenous fluid due to mild rhabdomyolysis (7) Diastolic CHF: Acute CHF Cautious amount of IV fluid (8) Paroxysmal A-fib: Will get EKG (9) HTN (hypertension): Patient remains high on admission We will continue with her current medications (10) GERD (gastroesophageal reflux disease): Continue PPI DVT prophylaxis Subcu heparin CODE STATUS Full (11) UTI (urinary tract infection): Your examination is suggestive of UTI Urine was sent for culture Started with intravenous ceftriaxone History of Present Illness Chief Complaint: Left lower extremity cellulitis with fall Primary Care Provider: Tasneem Francisco, She is a 74 years old and morbidly obese female with the obstructive sleep apnea, paroxysmal atrial fibrillation, type 2 diabetes on insulin, hypertension, diastolic CHF, hyperlipidemia, GERD, pulmonary hypertension, diastolic CHF apparently has had 2 falls since Tuesday. She she tripped over something on Tuesday and fell and able to get up but she could not get up by herself when she fell on Tuesday and she was on the floor may be since the fall on Tuesday she cannot tell exactly when. She complains to have any warning symptoms before fall. Denies any chest pain, palpitation or shortness of breath before the fall. Denies any fever and/or chills, any nausea and or vomiting. Denies any headache, blurred vision or any weakness involving any of the extremities. In the ER she was noted to have very high blood pressure at 171/80 and her both the legs were red and swollen left more than the right with tenderness and warmth and also noted to have possible UTI. Her CPK was more than 3000 as well. From that point she was admitted to medical telemetry unit and was started with intravenous antibiotics and reasonable amount of IV fluid for mild rhabdomyolysis. Allergies Allergy/AdvReac Type Severity Reaction Status Date / Time No Known Allergies Allergy Mild Verified 10/13/20 16:07 Home Medications Medication Instructions Recorded Confirmed Type aspirin 81 mg chewable tablet 81 mg PO DAILY 04/08/20 10/13/20 History atorvastatin 20 mg tablet 20 mg PO DAILY 04/08/20 10/13/20 History ferrous sulfate 325 mg (65 mg 325 mg PO BID 04/08/20 10/13/20 History iron) tablet insulin aspart U-100 100 unit/mL 10 unit SUBCUT TIDM 04/08/20 10/13/20 History (3 mL) subcutaneous pen insulin glargine 100 unit/mL (3 60 unit SUBCUT QPM ml 04/08/20 10/13/20 History mL) subcutaneous pen lisinopril 5 mg tablet 5 mg PO DAILY 04/08/20 10/13/20 History metformin 500 mg tablet 500 mg PO DAILY 04/08/20 10/13/20 History metoprolol succinate 50 mg capsule 50 mg PO DAILY 04/08/20 10/13/20 History sprinkle, ext. release 24 hr omega-3 fatty acids 1,000 mg 1,000 mg PO BID 04/08/20 10/13/20 History capsule potassium chloride 10 mEq 10 meq PO DAILY 04/08/20 10/13/20 History capsule,extended release tramadol 50 mg tablet 50 mg PO Q6H PRN 04/08/20 10/13/20 History Past Med/Surg History Medical History (Updated 10/13/20 @ 17:51 by Polly Patel MD) Aortic valve stenosis CKD (chronic kidney disease) stage 3, GFR 30-59 ml/min Diabetes Diastolic CHF Dyslipidemia GERD (gastroesophageal reflux disease) HTN (hypertension) Morbid obesity with BMI of 50.0-59.9, adult Obstructive sleep apnea Paroxysmal A-fib Pulmonary HTN Vitamin D deficiency Surgical History (Updated 04/08/20 @ 09:13 by Mone Hooper RN) S/P AVR Social History Smoking Status: Never smoker Feels Safe at Home: Yes Review of Systems Review of Systems: All systems reviewed & are unremarkable except as noted in HPI & below Physical Exam Physical Exam: Lying in bed comfortably Constitutional: well developed, well nourished, + ill appearing and + morbidly obese Eyes: PERRL, conjunctivae normal, anicteric sclerae ENMT: external ear and nose normal, oropharynx normal Neck: trachea midline, no thyromegaly Respiratory: no respiratory distress Auscultation: lungs clear to auscultation bilaterally and + diminished lung sounds; no crackles Cardiovascular: Rate/Rhythm: regular rate and regular rhythm Heart Sounds: + murmur (2/6 ejection systolic murmur over precordium) Extremities: + edema (Bilateral leg edema with chronic skin changes. ) Has bilateral leg cellulitis more on the left than the right. Whole of the left leg is erythematous, edematous and tenderness to palpate with warmth Gastrointestinal (Abdomen): Inspection/Auscultation: + abdomen distended and normal bowel sounds Percussion/Palpation: abdomen soft; abdomen nontender Neurologic: Alert, awake and oriented x3 Lymphatic: no cervical or axillary lymphadenopathy Results & Data Results & Data ([facility]) Vital Signs (Past 12 Hours) Vital Signs Temp Pulse Pulse Resp BP BP Pulse Ox 10/13/20 17:15 36.9 C 87 20 171/80 H 99 10/13/20 16:46 86 20 167/75 H 92 10/13/20 14:45 89 20 93 10/13/20 14:44 118 H 12 181/86 H 97 Laboratory Results Short CBC 10/13/20 Range/Units 15:41 WBC 11.32 H (4.8-10.8) K/uL Hgb 12.8 (12.0-16.0) g/dL Hct 39.0 (37-47) % Plt Count 262 (130-400) K/uL BMP 10/13/20 15:41 Sodium 136 Potassium 3.8 Chloride 99 Carbon Dioxide 27 BUN 29 H Creatinine 1.31 H Glucose 285 H Calcium 9.4 Cardiac Enzymes 10/13/20 Range/Units 15:41 Total Creatine Kinase 3325 H (26-192) U/L Troponin I 0.033 (0-0.045) ng/ml Liver Function 10/13/20 Range/Units 15:41 Total Bilirubin 1.0 (0.2-1) mg/dl AST 114 H (15-37) U/L ALT 66 (12-78) U/L Alkaline Phosphatase 105 (45-117) U/L Albumin 2.6 L (3.4-5.0) gm/dl Urine 10/13/20 Range/Units 15:56 Urine Color Yellow Urine Appearance Cloudy A (Clear) Urine pH 5.0 (4.5-7.5) Ur Specific [place] 1.027 (1.000-1.030) Urine Protein 2+ H (Negative) Urine Glucose (UA) 3+ H (Negative) Medications Administered Current Inpatient Medications Sodium Chloride (Nss 1000ml) 1,000 mls @ 125 mls/hr IV .Q8H [facility] Stop: 10/13/20 22:44 Last Admin: 10/13/20 16:58 Dose: 125 mls/hr Documented by: Ceftriaxone Sodium 2,000 mg/ (Dextrose) 50 mls @ 100 mls/hr IV Q24H [facility]; Protocol Stop: 10/18/20 17:29 Magnesium Sulfate/Dextrose (Magnesium Sulfate / D5w) 1 gm in 100 mls @ 50 mls/hr IV Q2H [facility] Stop: 10/13/20 21:44 Potassium Chloride/Sodium Chloride (Normal Saline W/20 Meq Kcl) 20 meq in 1,000 mls @ 100 mls/hr IV .Q10H [facility] Stop: 10/14/20 23:29 Miscellaneous Information (Daptomycin Consult Active) 1 ea N/A UD PRN PRN Reason: Consult Stop: 11/12/20 14:51
[2020-10-13] MEDS ORDERED: traMADol HCL 50 MG TABLET PO PRN (19:32)
[2020-10-13] MEDS: NSS + 20MEQ KCL 20 MEQ/1,000 ML BAG IV SCH (19:50)
[2020-10-13] MEDS: METOPROLOL SUCC 50MG EXT REL TAB PO SCH (21:00)
[2020-10-13] MEDS: lisinopril 5 MG TAB PO SCH (21:00)
[2020-10-13] MEDS: OMEGA-3 (PURIFIED FISH OIL) 1 GM CAP PO SCH (21:00)
[2020-10-13] MEDS: INSULIN GLARGINE SOLOSTAR 100 UNITS/ML 3 ML PEN SQ SCH (21:01)
[2020-10-13] MEDS: FERROUS SULFATE 325 MG TAB PO SCH (21:01)
[2020-10-13] MEDS: INSULIN ASPART 100 UNITS/ML 3 ML PEN SQ SCH (21:06)
[2020-10-13] MEDS: HEPARIN SOD 5,000 UNIT/0.5 ML VIAL SQ SCH (21:37)
[2020-10-13] MEDS: MAGNESIUM SULFATE / D5W 1 GM/100 ML BAG IV SCH ×2 (21:37→23:57)
[2020-10-13] MEDS ORDERED: MICONAZOLE NITRATE POWDER 43 GM EXT PRN (22:58)
[2020-10-14] MEDS: HEPARIN SOD 5,000 UNIT/0.5 ML VIAL SQ SCH ×3 (05:12→20:29)
[2020-10-14] MEDS: NSS + 20MEQ KCL 20 MEQ/1,000 ML BAG IV SCH ×2 (06:36→17:43)
[2020-10-14 06:49] LABS: Basophils # (auto) 0.01 K/uL (0-0.2); Basophils % (auto) 0.1 %; Eosinophils # (auto) 0.11 K/uL (0-0.5); Eosinophils % (auto) 1.4 %; Hemoglobin 11.8 g/dL (12.0-16.0); Immature Granulocytes # (auto) 0.02 K/uL (0.00-0.02); Immature Granulocytes % (auto) 0.2 %; Lymphocytes # (auto) 1.05 K/uL (1.2-3.4); Mean Corpuscular Hemoglobin 28.9 pg (25-34); Mean Corpuscular Hgb Conc 31.1 g/dL (32-36); Mean Corpuscular Volume 93.1 fL (80-100); Mean Platelet Volume 10.1 fL (7.4-10.4); Monocytes # (auto) 0.49 K/uL (0.11-0.59); Monocytes % (auto) 6.1 %; Neutrophils # (auto) 6.39 K/uL (1.4-6.5); Neutrophils % (auto) 79.2 %; Platelet Count 242 K/uL (130-400); RDW Coefficient of Variation 14.8 % (11.5-14.5); RDW Standard Deviation 50.9 fL (36.4-46.3); Red Blood Count 4.08 M/uL (4.2-5.4); White Blood Count 8.07 K/uL (4.8-10.8)
[2020-10-14 07:25] LABS: BUN Creatinine Ratio 25.2 (10-20); Calcium 8.5 mg/dl (8.5-10.1); Creatinine Clr Calc Pharmacy 66.7 ml/min; Est GFR (African American) 70.1 ml/min; Est GFR (Non-African American) 60.5 ml/min; Potassium 4.3 mmol/L (3.5-5.1)
[2020-10-14] MEDS: INSULIN ASPART 100 UNITS/ML 3 ML PEN SQ SCH ×4 (09:00→20:28)
[2020-10-14] MEDS: FERROUS SULFATE 325 MG TAB PO SCH ×2 (09:01→20:28)
[2020-10-14] MEDS: ASPIRIN 81 MG CHEW PO SCH (09:01)
[2020-10-14] MEDS: OMEGA-3 (PURIFIED FISH OIL) 1 GM CAP PO SCH ×2 (09:02→20:28)
[2020-10-14] MEDS: lisinopril 5 MG TAB PO SCH (09:02)
[2020-10-14] MEDS: METOPROLOL SUCC 50MG EXT REL TAB PO SCH (09:03)
[2020-10-14] MEDS: POTASSIUM CHLORIDE 10 MEQ TABCR PO SCH (09:04)
--- NOTE | 2020-10-14 10:59 | Electrocardiogram Report ---
Test Reason : Blood Pressure : / mmHG Vent. Rate : 082 BPM Atrial Rate : 082 BPM P-R Int : 176 ms QRS Dur : 144 ms QT Int : 394 ms P-R-T Axes : 088 073 006 degrees QTc Int : 460 ms Poor data quality, interpretation may be adversely affected Sinus rhythm with Premature atrial complexes Right bundle branch block Abnormal ECG When compared with ECG of 11-JUL-2016 06:11, Premature atrial complexes are now Present Confirmed by Fabián Hilton ([id number]) on 10/14/2020 10:59:43 AM Referred By: REFERRED SELF Confirmed By:Fabián Hilton
[2020-10-14] MEDS ORDERED: DAPTOmycin 500 MG in SYRINGE 0 ML IV SCH (16:00)
--- NOTE | 2020-10-14 16:31 | Hospitalist Progress Note ---
Date of Service October 14, 2020 Assessment & Plan (1) Cellulitis of left leg: Has bilateral leg cellulitis but is worse in the left side Blood cultures have been taken Started with intravenous ceftriaxone and daptomycin We will continue Dapto for now Daptomycin has been discontinued as MRSA infection is unlikely Urine culture is growing 3 types of organisms and blood cultures are pending We will continue ceftriaxone for now for the cellulitis and also for possible UTI Appreciate wound care input and recommendation (2) Fall: Status post fall x2 since Tuesday last May be contributed by leg cellulitis with generalized weakness We will get PT and OT evaluation May need placement Mild rhabdomyolysis from fall CPK level is more than 3000 We will give a small amount of IV fluid Check CPK tomorrow Has hypomagnesemia We will supplement (3) Venous stasis ulcers of both lower extremities: We will get wound care involved (4) COPD (chronic obstructive pulmonary disease): No acute exacerbation at this time We will put albuterol inhalers as needed (5) Aortic valve stenosis: No significant cardiac symptoms (6) CKD (chronic kidney disease) stage 3, GFR 30-59 ml/min: Will monitor PRP We will provide cautious amount of intravenous fluid due to mild rhabdomyolysis (7) Diastolic CHF: Acute CHF Cautious amount of IV fluid (8) Paroxysmal A-fib: Will get EKG (9) HTN (hypertension): Patient remains high on admission We will continue with her current medications (10) UTI (urinary tract infection): Your examination is suggestive of UTI Urine was sent for culture-showing 3 different organisms Started with intravenous ceftriaxone We will continue ceftriaxone to cover the leg infection as well (11) GERD (gastroesophageal reflux disease): Continue PPI DVT prophylaxis Subcu heparin CODE STATUS Full PT OT evaluation and discharge as per the recommendation Admission and Anticipated Discharge Date Admission Date: October 13, 2020 Subjective 10/14/2020 The patient was seen and examined in medical telemetry unit She has been feeling a lot better today Her redness in the legs has improved and denies any fever and/or chills, Her weakness is getting better to Review of Systems Review of Systems: All systems reviewed and are unremarkable except as noted below Physical Exam Physical Exam: Lying in bed comfortably Constitutional: well developed, well nourished, + ill appearing and + morbidly obese Eyes: PERRL, conjunctivae normal, anicteric sclerae ENMT: external ear and nose normal, oropharynx normal Neck: trachea midline, no thyromegaly Respiratory: no respiratory distress Auscultation: lungs clear to auscultation bilaterally and + diminished lung sounds; no crackles Cardiovascular: Rate/Rhythm: regular rate and regular rhythm Heart Sounds: + murmur (2/6 ejection systolic murmur over precordium) Extremities: + edema (Bilateral leg edema with chronic skin changes. ) Gastrointestinal (Abdomen): Inspection/Auscultation: + abdomen distended and normal bowel sounds Percussion/Palpation: abdomen soft; abdomen nontender Musculoskeletal: No acute arthritis in any joint Skin: Redness in the left lower extremity has improved a lot Neurologic: Alert, awake and oriented x3. No focal sensory or motor deficit appreciated Lymphatic: no cervical or axillary lymphadenopathy Results & Data Results & Data ([facility]) Vital Signs (Past 12 Hours) Vital Signs Temp Pulse Pulse Resp BP Pulse Ox 10/14/20 15:43 37.1 C 68 18 111/62 96 10/14/20 15:10 68 10/14/20 11:59 36.6 C 61 18 97/59 L 91 10/14/20 09:00 74 109/70 10/14/20 07:53 36.5 C 56 L 18 100/68 99 10/14/20 07:24 75 10/14/20 04:33 36.4 C L 60 18 107/56 L 100 Laboratory Results Short CBC 10/14/20 Range/Units 06:17 WBC 8.07 (4.8-10.8) K/uL Hgb 11.8 L (12.0-16.0) g/dL Hct 38.0 (37-47) % Plt Count 242 (130-400) K/uL BMP 10/14/20 06:17 Sodium 138 Potassium 4.3 Chloride 106 Carbon Dioxide 29 BUN 23 H Creatinine 0.92 D Glucose 147 H Calcium 8.5 Cardiac Enzymes 10/13/20 Range/Units 15:41 Total Creatine Kinase 3325 H (26-192) U/L Troponin I 0.033 (0-0.045) ng/ml Liver Function 10/13/20 Range/Units 15:41 Total Bilirubin 1.0 (0.2-1) mg/dl Alkaline Phosphatase 105 (45-117) U/L Urine 10/13/20 Range/Units 15:56 Urine Color Yellow Urine Appearance Cloudy A (Clear) Urine pH 5.0 (4.5-7.5) Ur Specific [place] 1.027 (1.000-1.030) Urine Protein 2+ H (Negative) Urine Glucose (UA) 3+ H (Negative) Medications Administered Current Inpatient Medications Aspirin (Aspirin 81 Mg Chew) 81 mg PO DAILY [facility] Stop: 11/13/20 08:59 Last Admin: 10/14/20 09:01 Dose: 81 mg Documented by: Ferrous Sulfate (Ferrous Sulfate 325 Mg Tab) 325 mg PO BID [facility] Stop: 11/12/20 20:59 Last Admin: 10/14/20 09:01 Dose: 325 mg Documented by: Fish Oil ([place]-3 (Purified Fish Oil) 1 Gm Cap) 1 gm PO BID [facility] Stop: 11/12/20 20:59 Last Admin: 10/14/20 09:02 Dose: 1 gm Documented by: Heparin Sodium (Porcine) (Heparin Sod 5,000 Unit/0.5 Ml Vial) 7,500 units SQ Q8 [facility] Stop: 11/12/20 21:59 Last Admin: 10/14/20 14:16 Dose: 7,500 units Documented by: Ceftriaxone Sodium 2,000 mg/ (Dextrose) 70 mls @ 100 mls/hr IV Q24H [facility]; Protocol Stop: 10/17/20 16:41 Potassium Chloride/Sodium Chloride (Normal Saline W/20 Meq Kcl) 20 meq in 1,000 mls @ 100 mls/hr IV .Q10H [facility] Stop: 10/15/20 01:29 Last Infusion: 10/14/20 06:41 Dose: 100 mls/hr Documented by: Insulin Aspart (Insulin Aspart 100 Units/Ml 3 Ml Pen) 10 units SQ ACHS [facility] Stop: 11/12/20 20:59 Last Admin: 10/14/20 12:29 Dose: 10 units Documented by: Insulin Glargine (Insulin Glargine Solostar 100 Units/Ml 3 Ml Pen) 60 units SQ QPM [facility] Stop: 11/12/20 20:59 Last Admin: 10/13/20 21:01 Dose: 60 units Documented by: Lisinopril (Lisinopril 5 Mg Tab) 5 mg PO DAILY [facility] Stop: 11/12/20 19:31 Last Admin: 10/14/20 09:02 Dose: 5 mg Documented by: Metoprolol Succinate (Metoprolol Succ 50mg Ext Rel Tab) 50 mg PO DAILY [facility] Stop: 11/12/20 19:59 Last Admin: 10/14/20 09:03 Dose: 50 mg Documented by: Miconazole Nitrate (Miconazole Nitrate Powder 43 Gm) 1 appln EXT PRN PRN PRN Reason: nursing decision Stop: 11/12/20 22:57 Last Admin: 10/14/20 05:34 Dose: 1 appln Documented by: Potassium Chloride (Potassium Chloride 10 Meq Tabcr) 10 meq PO DAILY [facility] Stop: 11/13/20 08:59 Last Admin: 10/14/20 09:04 Dose: 10 meq Documented by: Tramadol HCl (Tramadol Hcl 50 Mg Tablet) 50 mg PO Q6H PRN PRN Reason: pain Stop: 11/12/20 19:31
[2020-10-14] MEDS: cefTRIAXone SODIUM 2,000 MG in DEXTROSE 5% 50 ML IV SCH (16:36)
[2020-10-14] MEDS: INSULIN GLARGINE SOLOSTAR 100 UNITS/ML 3 ML PEN SQ SCH (20:29)
[2020-10-15] MEDS: HEPARIN SOD 5,000 UNIT/0.5 ML VIAL SQ SCH ×3 (05:40→21:32)
[2020-10-15 06:58] LABS: Basophils # (auto) 0.02 K/uL (0-0.2); Basophils % (auto) 0.2 %; Eosinophils # (auto) 0.12 K/uL (0-0.5); Eosinophils % (auto) 1.4 %; Hematocrit (blood only) 35.8 % (37-47); Hemoglobin 11.1 g/dL (12.0-16.0); Immature Granulocytes # (auto) 0.07 K/uL (0.00-0.02); Immature Granulocytes % (auto) 0.8 %; Lymphocytes # (auto) 1.08 K/uL (1.2-3.4); Lymphocytes % (auto) 12.6 %; Mean Corpuscular Hemoglobin 28.8 pg (25-34); Mean Corpuscular Volume 92.7 fL (80-100); Mean Platelet Volume 9.6 fL (7.4-10.4); Monocytes # (auto) 0.69 K/uL (0.11-0.59); Monocytes % (auto) 8.1 %; Neutrophils # (auto) 6.56 K/uL (1.4-6.5); Neutrophils % (auto) 76.9 %; Platelet Count 212 K/uL (130-400); RDW Standard Deviation 51.2 fL (36.4-46.3); Red Blood Count 3.86 M/uL (4.2-5.4); White Blood Count 8.54 K/uL (4.8-10.8)
[2020-10-15 07:33] LABS: BUN Creatinine Ratio 19.3 (10-20); Calcium 8.2 mg/dl (8.5-10.1); Creatinine Clr Calc Pharmacy 56.7 ml/min; Est GFR (African American) 56.5 ml/min; Est GFR (Non-African American) 48.7 ml/min; Magnesium 1.8 mg/dl (1.8-2.4); Potassium 4.9 mmol/L (3.5-5.1)
[2020-10-15] MEDS: OMEGA-3 (PURIFIED FISH OIL) 1 GM CAP PO SCH ×2 (07:51→21:32)
[2020-10-15] MEDS: ASPIRIN 81 MG CHEW PO SCH (07:51)
[2020-10-15] MEDS: FERROUS SULFATE 325 MG TAB PO SCH ×2 (07:51→21:31)
[2020-10-15] MEDS: lisinopril 5 MG TAB PO SCH (07:52)
[2020-10-15] MEDS: POTASSIUM CHLORIDE 10 MEQ TABCR PO SCH (07:52)
[2020-10-15] MEDS: METOPROLOL SUCC 50MG EXT REL TAB PO SCH (07:52)
--- NOTE | 2020-10-15 08:14 | Electrocardiogram Report ---
Test Reason : Blood Pressure : / mmHG Vent. Rate : 067 BPM Atrial Rate : 067 BPM P-R Int : 178 ms QRS Dur : 142 ms QT Int : 422 ms P-R-T Axes : 008 067 013 degrees QTc Int : 445 ms Sinus rhythm with Premature atrial complexes Right bundle branch block Abnormal ECG When compared with ECG of 13-OCT-2020 15:47, No significant change was found Confirmed by Fabián Hilton ([id number]) on 10/15/2020 8:14:30 AM Referred By: REFERRED SELF Confirmed By:Fabián Hilton
[2020-10-15] MEDS: INSULIN ASPART 100 UNITS/ML 3 ML PEN SQ SCH ×4 (08:44→21:46)
--- NOTE | 2020-10-15 14:33 | Ultrasound Report ---
US venous doppler LE BI CLINICAL HISTORY: Leg Swelling, R/O DVT COMPARISON STUDY: 05/13/2008 FINDINGS: Real-time and color flow Doppler imaging were performed. Flow was seen within the femoral, popliteal and calf veins with no intraluminal thrombus demonstrated. The saphenous vein is patent. IMPRESSION: No evidence of lower extremity DVT. ACT 112: Negative or not required by law. Electronically signed by: Gustavo Arriaga M.D. 10/15/2020 2:31 PM
[2020-10-15] MEDS: cefTRIAXone SODIUM 2,000 MG in DEXTROSE 5% 50 ML IV SCH (16:22)
--- NOTE | 2020-10-15 17:03 | Hospitalist Progress Note ---
Date of Service October 15, 2020 Assessment & Plan (1) Cellulitis of left leg: Bilateral leg cellulitis Blood Cx: Negative to date Venous Doppler: No evidence of lower extremity DVT. IV daptomycin discontinued Continue Rocephin Received IV fluids Appreciate Wound care input Suspected UTI Urine Cx: 3 types of organisms present, all moderate counts. Continue Rocephin empirically (2) Fall: Had Multiple falls PT/OT prior to discharge Fall precautions Mild rhabdomyolysis from fall CPK level:3000>1100 Received IV fluids (3) Venous stasis ulcers of both lower extremities: Continue wound care (4) COPD (chronic obstructive pulmonary disease): Chronic respiratory failure with hypoxia No acute exacerbation Monitor (5) Aortic valve stenosis: Asymptomatic (6) CKD (chronic kidney disease) stage 3, GFR 30-59 ml/min: Monitor renal function (7) Diastolic CHF: CXR:Cardiomegaly. No acute findings. Monitor volume status (8) Paroxysmal A-fib: Currently in sinus (9) HTN (hypertension): Continue current medications (10) UTI (urinary tract infection): Management as above (11) GERD (gastroesophageal reflux disease): Continue PPI DVT Px: Heparin SQ CODE STATUS Full Code Disposition PT OT prior to discharge Admission and Anticipated Discharge Date Admission Date: October 13, 2020 Subjective Patient is seen and examined at bedside Reports leg swelling Denies chest pain, dyspnea, dizziness, nausea, abd pain, dysuria Offers no other complaints Review of Systems Review of Systems: All systems reviewed & are unremarkable except as noted in HPI & below Physical Exam Physical Exam: Physical Exam: Vitals signs as noted above General Appearance:Morbidly obese, no apparent distress Head: normocephalic, Atraumatic Eyes: normal inspection, EOMI Neck: supple, Trachea midline Respiratory/Chest: Decreased breath sounds, CTA Cardiovascular: S1, S2, + murmur Abdomen/GI:Soft, Non tender, Bowel sounds present Extremities/Musculoskeletal:normal inspection, Multiple small leg wounds B/L, + edema, +erythema improved Neurologic/Psych:AAOX3, grossly no focal neurological deficits Skin: normal color, warm Results & Data Results & Data ([facility]) Vital Signs (Past 12 Hours) Vital Signs Temp Pulse Pulse Pulse Resp BP BP 10/15/20 15:57 36.8 C 60 20 148/74 H 10/15/20 11:14 36.8 C 51 L 19 121/64 10/15/20 07:54 36.6 C 58 L 18 138/80 10/15/20 07:52 68 10/15/20 07:25 61 Pulse Ox 10/15/20 15:57 90 10/15/20 11:14 98 10/15/20 07:54 100 10/15/20 07:52 10/15/20 07:25 Laboratory Results Short CBC 10/15/20 Range/Units 06:46 WBC 8.54 (4.8-10.8) K/uL Hgb 11.1 L (12.0-16.0) g/dL Hct 35.8 L (37-47) % Plt Count 212 (130-400) K/uL BMP 10/15/20 06:46 Sodium 140 Potassium 4.9 Chloride 108 H Carbon Dioxide 29 BUN 21 H Creatinine 1.10 Glucose 138 H Calcium 8.2 L Cardiac Enzymes 10/14/20 Range/Units 16:54 Total Creatine Kinase 1100 H (26-192) U/L
[2020-10-15] MEDS: INSULIN GLARGINE SOLOSTAR 100 UNITS/ML 3 ML PEN SQ SCH (21:35)
[2020-10-16] MEDS: HEPARIN SOD 5,000 UNIT/0.5 ML VIAL SQ SCH ×3 (05:41→22:51)
[2020-10-16 08:22] LABS: BUN Creatinine Ratio 22.3 (10-20); Creatinine Clr Calc Pharmacy 78.7 ml/min; Est GFR (African American) 85.6 ml/min; Est GFR (Non-African American) 73.8 ml/min; Magnesium 1.6 mg/dl (1.8-2.4); Potassium 4.8 mmol/L (3.5-5.1)
[2020-10-16] MEDS: lisinopril 5 MG TAB PO SCH (08:46)
[2020-10-16] MEDS: ASPIRIN 81 MG CHEW PO SCH (08:46)
[2020-10-16] MEDS: OMEGA-3 (PURIFIED FISH OIL) 1 GM CAP PO SCH ×2 (08:46→20:44)
[2020-10-16] MEDS: FERROUS SULFATE 325 MG TAB PO SCH ×2 (08:46→20:44)
[2020-10-16] MEDS ORDERED: MAGNESIUM SULFATE / D5W 1 GM/100 ML BAG IV ONE (09:00)
[2020-10-16] MEDS: INSULIN ASPART 100 UNITS/ML 3 ML PEN SQ SCH ×5 (09:07→20:44)
[2020-10-16] MEDS: METOPROLOL SUCC 50MG EXT REL TAB PO SCH (09:13)
[2020-10-16] MEDS: POTASSIUM CHLORIDE 10 MEQ TABCR PO SCH (09:15)
[2020-10-16] MEDS: cefTRIAXone SODIUM 2,000 MG in DEXTROSE 5% 50 ML IV SCH (16:24)
--- NOTE | 2020-10-16 17:19 | Hospitalist Progress Note ---
Date of Service October 16, 2020 Assessment & Plan (1) Cellulitis of left leg: Bilateral leg cellulitis Blood Cx: Negative to date Venous Doppler: No evidence of lower extremity DVT. IV daptomycin discontinued Continue Rocephin for now Received IV fluids Appreciate Wound care input Transition to p.o. antibiotics as able Suspected UTI Urine Cx: 3 types of organisms present, all moderate counts. Continue Rocephin Day #3 (2) Fall: Had Multiple falls PT/OT prior to discharge Fall precautions Mild rhabdomyolysis from fall CPK level:3000>1100 Received IV fluids (3) Venous stasis ulcers of both lower extremities: Continue wound care (4) COPD (chronic obstructive pulmonary disease): Chronic respiratory failure with hypoxia No acute exacerbation Monitor (5) Aortic valve stenosis: Asymptomatic (6) CKD (chronic kidney disease) stage 3, GFR 30-59 ml/min: Monitor renal function (7) Diastolic CHF: CXR:Cardiomegaly. No acute findings. Monitor volume status (8) Paroxysmal A-fib: Currently in sinus (9) HTN (hypertension): Continue current medications (10) UTI (urinary tract infection): Management as above (11) GERD (gastroesophageal reflux disease): Continue PPI DVT Px: Heparin SQ CODE STATUS Full Code Disposition SNF as able Admission and Anticipated Discharge Date Admission Date: October 13, 2020 Subjective Patient is seen and examined at bedside No new complaints Reports having leg tenderness Denies chest pain, dyspnea, dizziness, nausea, abd pain, dysuria Review of Systems Review of Systems: All systems reviewed & are unremarkable except as noted in HPI & below Physical Exam Physical Exam: Physical Exam: Vitals signs as noted above General Appearance:Morbidly obese, no apparent distress Head: normocephalic, Atraumatic Eyes: normal inspection, EOMI Neck: supple, Trachea midline Respiratory/Chest: Decreased breath sounds, CTA Cardiovascular: S1, S2, + murmur Abdomen/GI:Soft, Non tender, Bowel sounds present Extremities/Musculoskeletal:normal inspection, Multiple small leg wounds B/L, + edema, +erythema improved Neurologic/Psych:AAOX3, grossly no focal neurological deficits Skin: normal color, warm Results & Data Results & Data ([facility]) Vital Signs (Past 12 Hours) Vital Signs Temp Pulse Pulse Resp BP BP Pulse Ox 10/16/20 15:14 36.6 C 61 18 144/80 H 99 10/16/20 12:02 36.9 C 61 21 149/71 H 97 10/16/20 08:06 36.4 C L 57 L 20 145/69 H 96 10/16/20 07:28 64 Laboratory Results [facility] 10/16/20 07:01 Sodium 139 Potassium 4.8 Chloride 107 Carbon Dioxide 28 BUN 17 Creatinine 0.78 D Glucose 108 H Calcium 9.0
[2020-10-16] MEDS ORDERED: PROMETHAZINE HCL 12.5 MG in SODIUM CHLORIDE 0.9% 50 ML IV PRN (19:59)
[2020-10-16] MEDS: INSULIN GLARGINE SOLOSTAR 100 UNITS/ML 3 ML PEN SQ SCH (20:45)
[2020-10-17] MEDS: HEPARIN SOD 5,000 UNIT/0.5 ML VIAL SQ SCH ×2 (06:03→13:34)
[2020-10-17 07:16] LABS: BUN Creatinine Ratio 18.3 (10-20); Calcium 8.8 mg/dl (8.5-10.1); Creatinine Clr Calc Pharmacy 82.9 ml/min; Est GFR (African American) 92.7 ml/min; Magnesium 1.7 mg/dl (1.8-2.4); Potassium 5.1 mmol/L (3.5-5.1)
[2020-10-17] MEDS: FERROUS SULFATE 325 MG TAB PO SCH (08:29)
[2020-10-17] MEDS: OMEGA-3 (PURIFIED FISH OIL) 1 GM CAP PO SCH (08:29)
[2020-10-17] MEDS: POTASSIUM CHLORIDE 10 MEQ TABCR PO SCH (08:29)
[2020-10-17] MEDS: INSULIN ASPART 100 UNITS/ML 3 ML PEN SQ SCH ×2 (08:29→12:17)
[2020-10-17] MEDS: lisinopril 5 MG TAB PO SCH (08:29)
[2020-10-17] MEDS: ASPIRIN 81 MG CHEW PO SCH (08:29)
[2020-10-17] MEDS: METOPROLOL SUCC 50MG EXT REL TAB PO SCH (08:29)
[2020-10-17] MEDS ORDERED: MAGNESIUM SULFATE / D5W 1 GM/100 ML BAG IV ONE (09:30)
--- NOTE | 2020-10-17 13:29 | Hospitalist Progress Note ---
Date of Service October 17, 2020 Assessment & Plan (1) Cellulitis of left leg: Bilateral leg cellulitis Blood Cx: Negative to date Venous Doppler: No evidence of lower extremity DVT. IV daptomycin discontinued Continue Rocephin while hospitalized Received IV fluids Appreciate Wound care input Plan to transition to Omnicef upon discharge Suspected UTI Urine Cx: 3 types of organisms present, all moderate counts. Continue Rocephin Day #4 (2) Fall: Had Multiple falls PT/OT prior to discharge Fall precautions Mild rhabdomyolysis from fall CPK level:3000>1100 Received IV fluids (3) Venous stasis ulcers of both lower extremities: Continue wound care (4) COPD (chronic obstructive pulmonary disease): Chronic respiratory failure with hypoxia No acute exacerbation Monitor (5) Aortic valve stenosis: Asymptomatic (6) CKD (chronic kidney disease) stage 3, GFR 30-59 ml/min: Monitor renal function (7) Diastolic CHF: CXR:Cardiomegaly. No acute findings. Monitor volume status (8) Paroxysmal A-fib: Currently in sinus (9) HTN (hypertension): Continue current medications (10) UTI (urinary tract infection): Management as above (11) GERD (gastroesophageal reflux disease): Continue PPI DVT Px: Heparin SQ CODE STATUS Full Code Disposition SNF today Admission and Anticipated Discharge Date Admission Date: October 13, 2020 Subjective Patient is seen and examined at bedside States feeling well Leg erythema resolved Denies any leg pain today Also denies chest pain, dyspnea, dizziness, nausea, abd pain, dysuria Eager to get discharged Review of Systems Review of Systems: All systems reviewed and are unremarkable except as noted below Physical Exam Physical Exam: Physical Exam: Vitals signs as noted above General Appearance:Morbidly obese, no apparent distress Head: normocephalic, Atraumatic Eyes: normal inspection, EOMI Neck: supple, Trachea midline Respiratory/Chest: Decreased breath sounds, CTA Cardiovascular: S1, S2, + murmur Abdomen/GI:Soft, Non tender, Bowel sounds present Extremities/Musculoskeletal:normal inspection, Multiple small leg wounds B/L, + edema, +erythema resolved Neurologic/Psych:AAOX3, grossly no focal neurological deficits Skin: normal color, warm Results & Data Results & Data ([facility]) Vital Signs (Past 12 Hours) Vital Signs Temp Pulse Pulse Pulse Resp BP BP 10/17/20 12:04 37.1 C 65 61 14 144/80 H 134/77 06/04/21 11:30 37.1 C 65 14 134/77 10/17/20 10:42 59 L 10/17/20 07:47 36.4 C L 60 14 118/69 10/17/20 03:46 36.8 C 61 18 140/60 Pulse Ox 10/17/20 12:04 97 10/17/20 11:30 97 10/17/20 10:42 10/17/20 07:47 83 L 10/17/20 03:46 98 Laboratory Results [facility] 10/17/20 06:29 Sodium 139 Potassium 5.1 Chloride 106 Carbon Dioxide 32 BUN 13 Creatinine 0.73 Glucose 115 H Calcium 8.8
--- NOTE | 2020-10-17 13:46 | Discharge Summary ---
Date of Service October 17, 2020 Admission HPI Per Admitting Provider She is a 74 years old and morbidly obese female with the obstructive sleep apnea, paroxysmal atrial fibrillation, type 2 diabetes on insulin, hypertension, diastolic CHF, hyperlipidemia, GERD, pulmonary hypertension, diastolic CHF apparently has had 2 falls since Tuesday. She she tripped over something on Tuesday and fell and able to get up but she could not get up by herself when she fell on Tuesday and she was on the floor may be since the fall on Tuesday she cannot tell exactly when. She complains to have any warning symptoms before fall. Denies any chest pain, palpitation or shortness of breath before the f all. Denies any fever and/or chills, any nausea and or vomiting. Denies any headache, blurred vision or any weakness involving any of the extremities. In the ER she was noted to have very high blood pressure at 171/80 and her both the legs were red and swollen left more than the right with tenderness and warmth and also noted to have possible UTI. Her CPK was more than 3000 as well. From that point she was admitted to medical telemetry unit and was started with intravenous antibiotics and reasonable amount of IV fluid for mild rhabdomyolysis. Admission Exam Per Admitting Provider Physical Exam Physical Exam: Lying in bed comfortably Constitutional: well developed, well nourished, + ill appearing and + morbid ly obese Eyes: PERRL, conjunctivae normal, anicteric sclerae ENMT: external ear and nose normal, oropharynx normal Neck: trachea midline, no thyromegaly Respiratory: no respiratory distress Auscultation: lungs clear to auscultation bilaterally and + diminished lung sounds; no crackles Cardiovascular: Rate/Rhythm: regular rate and regular rhythm Heart Sounds: + murmur (2/6 ejection systolic murmur over precordium) Extremities: + edema (Bilateral leg edema with chronic skin changes. ) Has bilateral leg cellulitis more on the left than the right. Whole of the left leg is erythematous, edematous and tenderness to palpate with warmth Gastrointestinal (Abdomen): Inspection/Auscultation: + abdomen distended and normal bowel sounds Percussion/Palpation: abdomen soft; abdomen nontender Neurologic: Alert, awake and oriented x3 Lymphatic: no cervical or axillary lymphadenopathy Principal Diagnosis Bilateral leg cellulitis Suspected urinary tract infection Discharge Data Allergies Allergy/AdvReac Type Severity Reaction Status Date / Time No Known Allergies Allergy Mild Verified 10/13/20 16:07 Consultations 10/13/20 17:57 ED Decision to Admit Stat Procedures Performed Venous Doppler: No evidence of lower extremity DVT. CT Head: No acute intracranial findings Ordered Studies 10/13/20 14:45 CT head/brain wo con Stat 10/15/20 13:45 US venous doppler LE BI Routine Hospital Course (1) Cellulitis of left leg: Bilateral leg cellulitis Blood Cx: Negative to date Venous Doppler: No evidence of lower extremity DVT. IV daptomycin discontinued Continue Rocephin while hospitalized Received IV fluids Appreciate Wound care input Plan to transition to Omnicef upon discharge Suspected UTI Urine Cx: 3 types of organisms present, all moderate counts. Continue Rocephin Day #4 Hypomagnesemia: Replace electrolytes as needed (2) Fall: Had Multiple falls PT/OT prior to discharge Fall precautions Mild rhabdomyolysis from fall CPK level:3000>1100 Received IV fluids (3) Venous stasis ulcers of both lower extremities: Continue wound care (4) COPD (chronic obstructive pulmonary disease): Chronic respiratory failure with hypoxia No acute exacerbation Monitor (5) Aortic valve stenosis: Asymptomatic (6) CKD (chronic kidney disease) stage 3, GFR 30-59 ml/min: Monitor renal function (7) Diastolic CHF: CXR:Cardiomegaly. No acute findings. Monitor volume status (8) Paroxysmal A-fib: Currently in sinus (9) HTN (hypertension): Continue current medications (10) UTI (urinary tract infection): Management as above (11) GERD (gastroesophageal reflux disease): Continue PPI DVT Px: Heparin SQ CODE STATUS Full Code Disposition SNF today Total Time Total Time Spent Total Time Spent (In Minutes): 43 minutes Total Time Includes: Examination of the Patient, Discharge Planning, Medication Reconciliation, Communication With Other Providers and Other Discharge Plan Discharge Items Patient Disposition: Transfer Residential Fac Reason For Visit: L LEG CELLULITIS, UTI, FALL Discharge Diagnosis: Bilateral leg cellulitis Suspected urinary tract infection Activity: Resume your previous activity Exercise/Sports: Gradually increase as tolerated Non-emergency contact: Primary Care Provider Call non-emergency contact if: you have any medication questions, your symptoms worsen, your pain is not controlled, your pain is concerning for you and you have a fever Follow-up/Referrals: Tasneem Francisco, DO [Primary Care Provider] - Diet: Carb Consistent or DM2 Addtl Attending Provider Instructions: Follow-up with your primary care physician Dr. Nathan in 1 week upon discharge from rehab facility Follow-up with wound clinic for management of your wounds as advised Complete antibiotic course as prescribed. Final blood cultures are pending at the time of discharge. Follow-up with your physician for results. Seek immediate medical attention if your symptoms reoccur or worsen Please take all medications as instructed on discharge list below. Please call if you have any questions or problems. You can reach a [facility] hospitalist on duty at 24 hours a day by calling [phone] Pending Studies at Discharge: Yes Studies:: Blood Cultures Stand-Alone Forms: [facility] Skilled Items Patient informed of condition?: Yes DNR: No Discharge Level of Care: Skilled Communicable Disease: No Discharge Prognosis: Improving Lines: None Urinary Catheter: Yes Medications and DC Order Prescriptions: New cefdinir 300 mg capsule 300 mg PO BID Qty: 12 RF: 0 magnesium chloride 64 mg tablet,delayed release (DR/EC) 64 mg PO DAILY Qty: 30 RF: 0 Continued tramadol 50 mg tablet 50 mg PO Q6H PRN (Reason: pain) RF: 0 lisinopril 5 mg tablet 5 mg PO DAILY RF: 0 metformin 500 mg tablet 500 mg PO DAILY RF: 0 Lantus Solostar U-100 Insulin 100 unit/mL (3 mL) insulin pen 60 unit subcut QPM RF: 0 metoprolol succinate 50 mg capsule,sprinkle,ER 24hr 50 mg PO DAILY RF: 0 atorvastatin [Lipitor] 20 mg tablet 20 mg PO DAILY RF: 0 insulin aspart U-100 [Novolog Flexpen U-100 Insulin] 100 unit/mL (3 mL) insulin pen 10 unit subcut TIDM RF: 0 ferrous sulfate 325 mg (65 mg iron) tablet 325 mg PO BID RF: 0 omega-3 fatty acids [Fish Oil Concentrate] 1,000 mg capsule 1,000 mg PO BID RF: 0 aspirin 81 mg tablet,chewable 81 mg PO DAILY RF: 0 Discontinued potassium chloride 10 mEq capsule, extended release 10 meq PO DAILY RF: 0 Discharge Orders: Discharge Order (Routine); Ordered 10/17/20 Ordered By: Tre Sandoval Admission Data Admit Date/Time: 10/13/20 17:27 Attending Provider: Tre Sandoval Admit Provider: Polly Patel Primary Care Provider: Tasneem Francisco Other Providers: Polly Patel ; Cast[facility] ; El[facility] [place] Other Interventions: Discharge Summary Assessment (RN) Last Done: 10/17/20 12:04
[2020-10-18] MEDS ORDERED: cefUROXime axetil 500 MG TAB PO SCH (09:00)
== END 2020-10-17 15:10 | DRG 603 ==
LOC: ED 14:43 → SUATTDRO 17:27 → 2N 17:27

== ENCOUNTER 2021-07-23 13:11 | Inpatient (IN) ==
--- NOTE | 2021-07-23 13:34 | Emergency Department Note ---
History of Present Illness General Chief complaint: Fall Stated complaint: FALL, WEAKNESS Time Seen by Provider: 07/23/21 13:16 Source: patient Mode of arrival: EMS Limitations: other (poor memory) History of Present Illness Provider complaint: fall, weak Treatments prior to arrival: none This is a 75-year-old female who presents via EMS following a fall at home with increased weakness. Patient does live with her son per her report. EMS reported that the son came home from work and found her between the bed and the dresser, she was unable to sit up or stand which is unusual for her. With some prompting patient does recall falling, states she believes that her legs became weak. She states she does typically use a walker and did have it at the time of the fall. Patient states she does wear oxygen at home, although cannot recall how much. Patient denies any change in medications recently. Patient states she is taking her medications as prescribed. EMS states son told them she typically is on 1 L/min of oxygen at home chronically. She does typically walk with a walker and is steady on her feet. EMS reported she was 80% on room air, on 4 L she came up to the mid 90s. P atient denied pain related to the fall. Pt seen during a time of high acuity and national emergency pandemic while wearing PPE. Home Medications Medication Instructions Recorded Confirmed Type aspirin 81 mg chewable tablet 81 mg PO DAILY 04/08/20 07/23/21 History atorvastatin 20 mg tablet (Lipitor) 20 mg PO DAILY 04/08/20 07/23/21 History ferrous sulfate 325 mg (65 mg 325 mg PO DAILY 04/08/20 07/23/21 History iron) tablet insulin glargine 100 unit/mL (3 50 unit SUBCUT QAM ml 04/08/20 07/23/21 History mL) subcutaneous pen (Lantus Solostar U-100 Insulin) lisinopril 5 mg tablet 5 mg PO DAILY 04/08/20 07/23/21 History cinnamon bark 500 mg capsule 500 mg PO DAILY 07/23/21 07/23/21 History (Cinnamon) insulin regular human 100 unit/mL 10 unit SUBCUT AC 07/23/21 07/23/21 History (3 mL) subcutaneous pen (Novolin R Flexpen) multivitamin 1 tab PO DAILY 07/23/21 07/23/21 History omega 6-yre-mef-fish oil 1,000 mg 1 cap PO BID 07/23/21 07/23/21 History (120 mg-180 mg) capsule (Fish Oil) potassium chloride 10 mEq 10 meq PO DAILY 07/23/21 07/23/21 History tablet,extended release Allergies Allergy/AdvReac Type Severity Reaction Status Date / Time No Known Allergies Allergy Mild Verified 07/23/21 18:29 Past Med/Surg History Medical History Aortic valve stenosis CKD (chronic kidney disease) stage 3, GFR 30-59 ml/min Diabetes Diastolic CHF Dyslipidemia GERD (gastroesophageal reflux disease) HTN (hypertension) Morbid obesity with BMI of 50.0-59.9, adult Obstructive sleep apnea Paroxysmal A-fib Pulmonary HTN Vitamin D deficiency Surgical History S/P AVR Social History Smoking Status: Unknown if ever smoked Second Hand Exposure: No; Hx Alcohol Use: No Hx Substance Use: No Preferred Language: Colombian Communication Ability: Effective Manager Wastewater Required: No Beliefs That Will Affect Care: None marital status: Current Living Situation: Family Current Living Situation Comment: Lives at home with son Feels Safe at Home: Yes Safety Concerns: Feels Safe At This Time Assistive Devices: Oxygen - Continuous Assistive Devices Comment: Patient states she does use any of the above Review of Systems A total of 10 systems reviewed and were otherwise negative All systems reviewed & are unremarkable except as noted in HPI & below Physical Exam Vital Signs Vital Signs - 24 hr 07/23/21 13:05 07/23/21 15:47 Temperature 37.6 C H Temperature Source Oral Pulse Rate 112 H Pulse Rate [Apical] 100 H Pulse Rhythm Regular Pulse Rhythm [Apical] Regular Pulse Strength Normal Pulse Strength [Apical] Normal Respiratory Rate 20 18 Respiratory Effort / Characteristics Non-Labored Non-Labored Respiratory Depth Normal Normal Respiratory Pattern Regular Regular Blood Pressure 125/100 Blood Pressure [Left Arm] 108/54 L Blood Pressure Mean 108 Blood Pressure Mean [Left Arm] 72 Blood Pressure Position Lying Blood Pressure Position [Left Arm] Lying Pulse Oximetry 86 L 96 Oxygen Delivery Method Room Air Nasal Cannula Oxygen Flow Rate 4 Sepsis Recent Fever Within 48 Hours No Sepsis New/Unexplained Change in Mental Status No Sepsis Action Taken by Nursing No Action Required GENERAL: alert, unwell appearing, well nourished, no distress, non-toxic, NC in place, BMI>42 EYE EXAM: normal conjunctiva, PERRL and EOM's grossly intact OROPHARYNX: no exudate, no erythema, lips, buccal mucosa, and tongue normal and mucous membranes are dry with cracking of lips noted NECK: supple, no nuchal rigidity, no adenopathy, non-tender LUNGS: Clear decreased to auscultation. Normal chest wall mechanics, no w/r/r HEART: no murmurs, S1 normal and S2 normal ABDOMEN: abdomen soft, non-tender, normo-active bowel sounds, no masses, no rebound or guarding. BACK: Back is symmetrical on inspection and there is no deformity, no midline tenderness, no CVA tenderness. SKIN: no rashes and no bruising UPPER EXTREMITIES: upper extremities are grossly normal. FROM, nml pulses b/l. LOWER EXTREMITIES: 3+ b/l pitting edema with chronic appearing venous stasis changes, mild increased erythema noted to right distal lower extremity with increased appearance of scaling/dermatitis, no increased warmth, FROM, nml pulses b/l. NEURO EXAM: Normal sensorium, cranial nerves II-XII grossly intact, normal speech, no gross weakness of arms, no gross weakness of legs. Gross sensation intact. Course Course 1640: Insulin subcu and IV magnesium needed to be reentered as the initial orders were placed when the computers went down. This is not a second dose. 1702: Patient still tachycardic and on 4 L/min nasal cannula. Patient denies any pain, denies shortness of breath. Tachycardia does appear sinus. Administered Medications Acetaminophen (Acetaminophen 325 Mg Tab) 650 mg PO Q6H PRN PRN Reason: Fever/pain Stop: 08/23/21 03:15 Last Admin: 07/24/21 03:44 Dose: 650 mg Documented by: [id number] Atorvastatin Calcium (Atorvastatin 20 Mg Tab) 20 mg PO DAILY SIMEON Stop: 08/23/21 08:59 Last Admin: 07/25/21 08:07 Dose: 20 mg Documented by: [id number] Admin: 07/24/21 08:16 Dose: 20 mg Documented by: [id number] Fish Oil ([place]-3 (Purified Fish Oil) 1 Gm Cap) 1 gm PO BID SIMEON Stop: 08/22/21 20:59 Last Admin: 07/25/21 22:01 Dose: 1 gm Documented by: [id number] Admin: 07/25/21 08:09 Dose: 1 gm Documented by: [id number] Admin: 07/24/21 19:50 Dose: 1 gm Documented by: [id number] Admin: 07/24/21 08:16 Dose: 1 gm Documented by: [id number] Admin: 07/23/21 21:54 Dose: 1 gm Documented by: [id number] Heparin Sodium/Dextrose (Heparin Sodium/Dextrose) 25,000 units in 500 mls @ 20 mls/hr IV .Q24H SIMEON; Protocol Stop: 08/24/21 12:44 Last Titration: 07/25/21 17:29 Dose: 1,000 units/hr, 20 mls/hr Documented by: [id number] Cosigned by: [id number] Titration: 07/25/21 14:28 Dose: 0 units/hr, 0 mls/hr Documented by: [id number] Cosigned by: [id number] Admin: 07/25/21 14:06 Dose: 1,000 units/hr, 20 mls/hr Documented by: [id number] Cosigned by: [id number] Pantoprazole Sodium 40 mg/ (Dextrose) 100 mls @ 20 mls/hr IV Q5H SIMEON Stop: 08/24/21 14:59 Last Admin: 07/25/21 22:02 Dose: 8 mg/hr, 20 mls/hr Documented by: [id number] Infusion: 07/25/21 22:02 Dose: 8 mg/hr, 20 mls/hr Documented by: [id number] Admin: 07/25/21 17:29 Dose: 8 mg/hr, 20 mls/hr Documented by: [id number] Cefazolin Sodium (Ancef 2000mg) 2,000 mg in 15 mls @ 3.75 mls/min IV Q12H SIMEON; Protocol Stop: 08/01/21 17:29 Last Admin: 07/25/21 17:41 Dose: 3.75 mls/min Documented by: [id number] Insulin Human Regular 250 (units/ Sodium Chloride) 250 mls @ 4 mls/hr IV .Q24H SIMEON; Protocol Stop: 08/24/21 17:29 Last Titration: 07/25/21 22:00 Dose: 3.2 unit/hr, 3.2 mls/hr Documented by: [id number] Cosigned by: [id number] Titration: 07/25/21 21:00 Dose: 3.2 unit/hr, 3.2 mls/hr Documented by: [id number] Cosigned by: [id number] Titration: 07/25/21 20:00 Dose: 4 unit/hr, 4 mls/hr Documented by: [id number] Cosigned by: [id number] Titration: 07/25/21 19:05 Dose: 4 unit/hr, 4 mls/hr Documented by: [id number] Cosigned by: [id number] Admin: 07/25/21 18:11 Dose: 5 unit/hr, 5 mls/hr Documented by: [id number] Cosigned by: [id number] Insulin Aspart (Insulin Aspart Per Unit) 0 units SC ACHS SIMEON Stop: 08/24/21 20:59 Last Admin: 07/25/21 21:17 Dose: Not Given Documented by: [id number] Lactic Acid (Ammonium Lactate 12% Lotion 225 Gm Btl) 1 gm EXT BID SIMEON Stop: 08/23/21 20:59 Last Admin: 07/25/21 22:01 Dose: 1 gm Documented by: [id number] Admin: 07/25/21 08:08 Dose: 1 gm Documented by: [id number] Admin: 07/24/21 19:51 Dose: 1 gm Documented by: [id number] Magnesium Chloride (Magnesium Chloride 64mg Delayed Rel Tab) 64 mg PO DAILY SIMEON Stop: 08/23/21 08:59 Last Admin: 07/25/21 08:07 Dose: 64 mg Documented by: [id number] Admin: 07/24/21 08:16 Dose: 64 mg Documented by: [id number] Miconazole Nitrate (Miconazole Nitrate Powder 43 Gm) 1 appln EXT BID SIMEON Stop: 08/23/21 06:24 Last Admin: 07/25/21 22:03 Dose: 1 appln Documented by: [id number] Admin: 07/25/21 08:10 Dose: 1 appln Documented by: [id number] Admin: 07/24/21 19:51 Dose: 1 appln Documented by: [id number] Admin: 07/24/21 07:08 Dose: 1 appln Documented by: [id number] Potassium Chloride (Potassium Chloride 10 Meq Tabcr) 10 meq PO DAILY SIMEON Stop: 08/23/21 08:59 Last Admin: 07/25/21 08:16 Dose: 10 meq Documented by: [id number] Admin: 07/24/21 08:16 Dose: 10 meq Documented by: [id number] Discontinued Medications Aspirin (Aspirin 81 Mg Ectab) 81 mg PO DAILY SIMEON Stop: 08/23/21 08:59 Last Admin: 07/25/21 08:08 Dose: Not Given Documented by: [id number] Admin: 07/24/21 08:16 Dose: 81 mg Documented by: [id number] Ferrous Sulfate (Ferrous Sulfate 325 Mg Tab) 325 mg PO BID SIMEON Stop: 08/22/21 20:59 Last Admin: 07/25/21 08:09 Dose: 325 mg Documented by: [id number] Admin: 07/24/21 19:50 Dose: 325 mg Documented by: [id number] Admin: 07/24/21 08:15 Dose: 325 mg Documented by: [id number] Admin: 07/23/21 21:54 Dose: 325 mg Documented by: [id number] Heparin Sodium (Porcine) (Heparin Sod (Porcine) 1000 Unit/Ml) 1 units IV NOW ONE Stop: 07/23/21 18:20 Last Admin: 07/23/21 18:20 Dose: 5,000 units Documented by: [id number] Cosigned by: [id number] Heparin Sodium/Dextrose (Heparin Iv Adult Wt-Based Standard With Bolus Protocol) 1 ea IV NOW STA; Protocol Stop: 07/23/21 18:05 Last Admin: 07/23/21 18:22 Dose: Not Given Documented by: [id number] Magnesium Sulfate/Dextrose (Magnesium Sulfate / D5w) 1 gm in 100 mls @ 100 mls/hr IV Q1H SIMEON Stop: 07/23/21 17:38 Last Infusion: 07/23/21 19:30 Dose: 0 mls/hr Documented by: [id number] Admin: 07/23/21 18:32 Dose: 100 mls/hr Documented by: [id number] Infusion: 07/23/21 18:01 Dose: 100 mls/hr Documented by: [id number] Admin: 07/23/21 17:01 Dose: 100 mls/hr Documented by: [id number] Cefepime HCl (Maxipime) 2,000 mg in 20 mls @ 5 mls/min IV NOW STA; Protocol Stop: 07/23/21 16:43 Last Admin: 07/23/21 17:01 Dose: 5 mls/min Documented by: [id number] Magnesium Sulfate/Dextrose (Magnesium Sulfate / D5w) 1 gm in 100 mls @ 100 mls/hr IV Q1H SIMEON Stop: 07/23/21 18:43 Last Admin: 07/23/21 17:11 Dose: Not Given Documented by: [id number] Admin: 07/23/21 17:01 Dose: Not Given Documented by: [id number] Sodium Chloride (Nss 1000ml) 1,000 mls @ 200 mls/hr IV .Q5H SIMEON Stop: 08/22/21 17:29 Last Infusion: 07/23/21 22:06 Dose: 0 mls/hr Documented by: [id number] Admin: 07/23/21 18:09 Dose: 200 mls/hr Documented by: [id number] Heparin Sodium/Dextrose (Heparin Sodium/Dextrose) 25,000 units in 500 mls @ 27 mls/hr IV .[id number] SIMEON; Protocol Stop: 08/22/21 18:29 Last Titration: 07/25/21 14:07 Dose: 0 units/hr, 0 mls/hr Documented by: [id number] Cosigned by: [id number] Admin: 07/25/21 08:17 Dose: 1,350 units/hr, 27 mls/hr Documented by: [id number] Cosigned by: [id number] Titration: 07/25/21 08:00 Dose: 0 units/hr, 0 mls/hr Documented by: [id number] Cosigned by: [id number] Titration: 07/25/21 07:01 Dose: 1,350 units/hr, 27 mls/hr Documented by: [id number] Cosigned by: [id number] Titration: 07/24/21 19:12 Dose: 1,350 units/hr, 27 mls/hr Documented by: [id number] Cosigned by: [id number] Admin: 07/24/21 14:21 Dose: 1,350 units/hr, 27 mls/hr Documented by: [id number] Cosigned by: [id number] Titration: 07/24/21 14:21 Dose: 0 units/hr, 0 mls/hr Documented by: [id number] Cosigned by: [id number] Titration: 07/24/21 07:05 Dose: 1,350 units/hr, 27 mls/hr Documented by: [id number] Cosigned by: [id number] Titration: 07/24/21 01:35 Dose: 1,350 units/hr, 27 mls/hr Documented by: [id number] Cosigned by: [id number] Titration: 07/24/21 01:34 Dose: 1,350 units/hr, 27 mls/hr Documented by: [id number] Cosigned by: [id number] Admin: 07/23/21 18:19 Dose: 1,350 units/hr, 27 mls/hr Documented by: [id number] Cosigned by: [id number] Sodium Chloride (Nss 1000ml) 1,000 mls @ 80 mls/hr IV .[id number] SIMEON Last Infusion: 07/24/21 07:26 Dose: 0 mls/hr Documented by: [id number] Infusion: 07/24/21 03:19 Dose: 0 mls/hr Documented by: [id number] Admin: 07/23/21 19:45 Dose: 80 mls/hr Documented by: [id number] Albumin Human (Albumin 25% 100 Ml) 25 gm in 100 mls @ 50 mls/hr IV ONE ONE Stop: 07/24/21 05:44 Last Infusion: 07/24/21 06:21 Dose: 0 mls/hr Documented by: [id number] Admin: 07/24/21 03:44 Dose: 50 mls/hr Documented by: [id number] Albumin Human (Albumin 25% 100 Ml) 25 gm in 100 mls @ 50 mls/hr IV ONE ONE Stop: 07/24/21 08:44 Last Infusion: 07/24/21 09:21 Dose: 0 mls/hr Documented by: [id number] Admin: 07/24/21 07:13 Dose: 50 mls/hr Documented by: [id number] Magnesium Sulfate/Dextrose (Magnesium Sulfate / D5w) 1 gm in 100 mls @ 50 mls/hr IV Q2H [facility] [place] Stop: 07/24/21 12:29 Last Infusion: 07/24/21 15:41 Dose: 0 mls/hr Documented by: [id number] Admin: 07/24/21 13:37 Dose: 50 mls/hr Documented by: [id number] Infusion: 07/24/21 13:36 Dose: 0 mls/hr Documented by: [id number] Admin: 07/24/21 11:10 Dose: 50 mls/hr Documented by: [id number] Cefepime HCl 2,000 mg/ Syringe 20 mls @ 5.5 mls/min IV Q12H SIMEON; Protocol Stop: 08/03/21 10:59 Last Admin: 07/25/21 11:30 Dose: 5.5 mls/min Documented by: [id number] Admin: 07/24/21 22:56 Dose: 5.5 mls/min Documented by: [id number] Admin: 07/24/21 12:13 Dose: 5.5 mls/min Documented by: [id number] Pantoprazole Sodium 80 mg/ (Dextrose) 100 mls @ 400 mls/hr IV TODAY@0845 ONE Stop: 07/25/21 08:59 Last Infusion: 07/25/21 10:46 Dose: 0 mls/hr Documented by: [id number] Admin: 07/25/21 09:52 Dose: 400 mls/hr Documented by: [id number] Albumin Human (Albumin 25% 100 Ml) 25 gm in 100 mls @ 50 mls/hr IV ONE ONE Stop: 07/25/21 10:10 Last Infusion: 07/25/21 13:00 Dose: 0 mls/hr Documented by: [id number] Admin: 07/25/21 09:54 Dose: 50 mls/hr Documented by: [id number] Calcium Gluconate 2,000 mg/ (Dextrose) 70 mls @ 240 mls/hr IV NOW ONE Stop: 07/25/21 17:17 Last Infusion: 07/25/21 18:08 Dose: 0 mls/hr Documented by: [id number] Admin: 07/25/21 17:40 Dose: 240 mls/hr Documented by: [id number] Insulin Aspart (Insulin Aspart Per Unit) 0 units SC ACHS SIMEON Stop: 08/22/21 20:59 Last Admin: 07/25/21 19:32 Dose: Not Given Documented by: [id number] Admin: 07/25/21 12:30 Dose: 11 units Documented by: [id number] Cosigned by: [id number] Admin: 07/25/21 08:16 Dose: 14 units Documented by: [id number] Cosigned by: [id number] Admin: 07/24/21 20:38 Dose: 5 units Documented by: [id number] Cosigned by: [id number] Admin: 07/24/21 16:56 Dose: 10 units Documented by: [id number] Cosigned by: [id number] Admin: 07/24/21 12:13 Dose: 7 units Documented by: [id number] Cosigned by: [id number] Admin: 07/24/21 08:14 Dose: 10 units Documented by: [id number] Cosigned by: [id number] Admin: 07/23/21 20:26 Dose: 9 units Documented by: [id number] Cosigned by: [id number] Insulin Glargine (Insulin Glargine Solostar 100 Units/Ml 3 Ml Pen) 50 units SQ QPM SIMEON Stop: 08/22/21 20:59 Last Admin: 07/24/21 20:38 Dose: 50 units Documented by: [id number] Cosigned by: [id number] Admin: 07/23/21 20:41 Dose: 50 units Documented by: [id number] Cosigned by: [id number] Insulin Human Regular (Novolin-R Insulin Per Unit Charge) 10 units SC NOW STA Stop: 07/23/21 15:39 Last Admin: 07/23/21 17:02 Dose: 10 units Documented by: [id number] Cosigned by: [id number] Insulin Human Regular (Novolin-R Insulin Per Unit Charge) 10 units SC NOW STA Stop: 07/23/21 16:44 Last Admin: 07/23/21 17:02 Dose: Not Given Documented by: [id number] Insulin Human Regular (Novolin-R Insulin Per Unit Charge) 10 units SC NOW STA Stop: 07/23/21 17:46 Last Admin: 07/23/21 18:17 Dose: 10 units Documented by: [id number] Cosigned by: [id number] Ioversol (Optiray 320 125ml) 118 ml IV ONCE ONE Stop: 07/23/21 17:47 Last Admin: 07/23/21 17:51 Dose: 118 ml Documented by: [id number] Metoprolol Succinate (Metoprolol Succ 25mg Ext Rel Tab) 25 mg PO DAILY [facility] [place] Stop: 08/24/21 08:59 Last Admin: 07/25/21 08:17 Dose: Not Given Documented by: [id number] Miscellaneous (Icu Severe Hyperglycemia Protocol) 1 ea N/A ONE ONE Stop: 07/25/21 16:59 Last Admin: 07/25/21 17:40 Dose: 1 ea Documented by: [id number] Miscellaneous (Insulin Protocol Goal Range ) 1 ea N/A ONE ONE Stop: 07/25/21 17:26 Last Admin: 07/25/21 17:40 Dose: 1 ea Documented by: [id number] Miscellaneous (Severe Stress Level ) 1 ea N/A ONE ONE Stop: 07/25/21 17:26 Last Admin: 07/25/21 17:41 Dose: 1 ea Documented by: [id number] Critical Care Time Critical Care Time: Yes Total Critical Care Time: 52 Critical care of 52 min performed to assess and manage high likelihood of life- threatening hypoxia and sepsis, involving labs and imaging performed with assessment to evaluate hypoxia and sepsis diagnosis with frequent reassessment. This time includes bedside time, treatment discussions with patient/family/consultants, documentation time and excludes procedure time. Medical Decision Making Differential Diagnosis Differential Diagnosis includes but is not limited to dehydration, stroke, anemia, hypoglycemia, hyponatremia, hypernatremia, urinary tract infection, pneumonia, bronchitis, sepsis, gastroenteritis, additional abdominal pathology, metabolic abnormalities and infections. Medical Records Attestation: I reviewed the patient's medical records. Home Medications Current Medication List: was personally reviewed by me Laboratory Data Attestation: I reviewed the patient's lab results. Result diagrams: 07/25/21 21:05 07/25/21 06:09 Lab Results 07/23/21 07/23/21 07/23/21 Range/Units 13:34 13:34 13:34 WBC 19.35 H (4.8-10.8) K/uL RBC 3.96 L (4.2-5.4) M/uL Hgb 11.6 L (12.0-16.0) g/dL Hct 36.5 L (37-47) % MCV 92.2 (80-100) fL MCH 29.3 (25-34) pg MCHC 31.8 L (32-36) g/dL RDW Std Deviation 51.4 H (36.4-46.3) fL RDW Coeff of Jacqueline 15.2 H (11.5-14.5) % Plt Count 284 (130-400) K/uL MPV 10.5 H (7.4-10.4) fL Immature Gran % (Auto) 0.2 % Neut % (Auto) 95.0 % Lymph % (Auto) 1.9 % Davis % (Auto) 2.8 % Eos % (Auto) 0.0 % Baso % (Auto) 0.1 % Neut # (Auto) 18.39 H (1.4-6.5) K/uL Lymph # (Auto) 0.37 L (1.2-3.4) K/uL Davis # (Auto) 0.54 (0.11-0.59) K/uL Eos # (Auto) 0.00 (0-0.5) K/uL Baso # (Auto) 0.01 (0-0.2) K/uL Immature Gran # (Auto) 0.04 H (0.00-0.02) K/uL Sodium 135 L (136-145) mmol/L Potassium TNP Chloride 98 (98-107) mmol/L Carbon Dioxide 27 (21-32) mmol/L Anion Gap 10 (3-11) BUN 39 H (6-23) mg/dl Creatinine 1.92 H (0.6-1.2) mg/dl Est Cr Clr Drug Dosing 28.9 ml/min Est GFR ( Amer) 28.6 ml/min Est GFR (Non-Af Amer) 24.7 ml/min BUN/Creatinine Ratio 20.3 H (10-20) Glucose 486 H* (70-99(Fasting)) mg/dl POC Glucose (70-99) mg/dl Lactate (0.4-2.0) mmol/L Calcium 9.6 (8.5-10.1) mg/dl Magnesium 1.2 L (1.7-2.4) mg/dl Total Bilirubin 0.8 (0.2-1.0) mg/dl AST TNP ALT 21 (7-52) U/L Alkaline Phosphatase 90 (34-104) U/L Total Creatine Kinase (26-192) U/L Troponin I 0.22 H* (0-0.04) ng/ml Total Protein 8.1 (6.0-8.3) gm/dl Albumin 3.3 L (3.4-5.0) gm/dl Globulin 4.8 H (2.5-4.0) gm/dl Albumin/Globulin Ratio 0.7 L (0.9-2) Procalcitonin Cancelled SARS-CoV-2 (PCR) (Negative) Influenza Type A (PCR) (Neg) Influenza Type B (PCR) (Neg) RSV (RT-PCR) (Neg) 07/23/21 07/23/21 07/23/21 Range/Units 14:13 14:22 14:22 WBC (4.8-10.8) K/uL RBC (4.2-5.4) M/uL Hgb (12.0-16.0) g/dL Hct (37-47) % MCV (80-100) fL MCH (25-34) pg MCHC (32-36) g/dL RDW Std Deviation (36.4-46.3) fL RDW Coeff of Jacqueline (11.5-14.5) % Plt Count (130-400) K/uL MPV (7.4-10.4) fL Immature Gran % (Auto) % Neut % (Auto) % Lymph % (Auto) % Davis % (Auto) % Eos % (Auto) % Baso % (Auto) % Neut # (Auto) (1.4-6.5) K/uL Lymph # (Auto) (1.2-3.4) K/uL Davis # (Auto) (0.11-0.59) K/uL Eos # (Auto) (0-0.5) K/uL Baso # (Auto) (0-0.2) K/uL Immature Gran # (Auto) (0.00-0.02) K/uL Sodium (136-145) mmol/L Potassium 4.4 Chloride (98-107) mmol/L Carbon Dioxide (21-32) mmol/L Anion Gap (3-11) BUN (6-23) mg/dl Creatinine (0.6-1.2) mg/dl Est Cr Clr Drug Dosing ml/min Est GFR ( Amer) ml/min Est GFR (Non-Af Amer) ml/min BUN/Creatinine Ratio (10-20) Glucose (70-99(Fasting)) mg/dl POC Glucose (70-99) mg/dl Lactate (0.4-2.0) mmol/L Calcium (8.5-10.1) mg/dl Magnesium (1.7-2.4) mg/dl Total Bilirubin (0.2-1.0) mg/dl AST 36 ALT (7-52) U/L Alkaline Phosphatase (34-104) U/L Total Creatine Kinase 1238 H (26-192) U/L Troponin I (0-0.04) ng/ml Total Protein (6.0-8.3) gm/dl Albumin (3.4-5.0) gm/dl Globulin (2.5-4.0) gm/dl Albumin/Globulin Ratio (0.9-2) Procalcitonin 13.45 H SARS-CoV-2 (PCR) (Negative) Influenza Type A (PCR) (Neg) Influenza Type B (PCR) (Neg) RSV (RT-PCR) (Neg) 07/23/21 07/23/21 07/23/21 Range/Units 16:39 16:41 17:03 WBC (4.8-10.8) K/uL RBC (4.2-5.4) M/uL Hgb (12.0-16.0) g/dL Hct (37-47) % MCV (80-100) fL MCH (25-34) pg MCHC (32-36) g/dL RDW Std Deviation (36.4-46.3) fL RDW Coeff of Jacqueline (11.5-14.5) % Plt Count (130-400) K/uL MPV (7.4-10.4) fL Immature Gran % (Auto) % Neut % (Auto) % Lymph % (Auto) % Davis % (Auto) % Eos % (Auto) % Baso % (Auto) % Neut # (Auto) (1.4-6.5) K/uL Lymph # (Auto) (1.2-3.4) K/uL Davis # (Auto) (0.11-0.59) K/uL Eos # (Auto) (0-0.5) K/uL Baso # (Auto) (0-0.2) K/uL Immature Gran # (Auto) (0.00-0.02) K/uL Sodium (136-145) mmol/L Potassium Chloride (98-107) mmol/L Carbon Dioxide (21-32) mmol/L Anion Gap (3-11) BUN (6-23) mg/dl Creatinine (0.6-1.2) mg/dl Est Cr Clr Drug Dosing ml/min Est GFR ( Amer) ml/min Est GFR (Non-Af Amer) ml/min BUN/Creatinine Ratio (10-20) Glucose (70-99(Fasting)) mg/dl POC Glucose 429 H* (70-99) mg/dl Lactate 1.8 (0.4-2.0) mmol/L Calcium (8.5-10.1) mg/dl Magnesium (1.7-2.4) mg/dl Total Bilirubin (0.2-1.0) mg/dl AST ALT (7-52) U/L Alkaline Phosphatase (34-104) U/L Total Creatine Kinase (26-192) U/L Troponin I (0-0.04) ng/ml Total Protein (6.0-8.3) gm/dl Albumin (3.4-5.0) gm/dl Globulin (2.5-4.0) gm/dl Albumin/Globulin Ratio (0.9-2) Procalcitonin SARS-CoV-2 (PCR) NEGATIVE (Negative) Influenza Type A (PCR) Negative (Neg) Influenza Type B (PCR) Negative (Neg) RSV (RT-PCR) Negative (Neg) 07/23/21 Range/Units 17:55 WBC (4.8-10.8) K/uL RBC (4.2-5.4) M/uL Hgb (12.0-16.0) g/dL Hct (37-47) % MCV (80-100) fL MCH (25-34) pg MCHC (32-36) g/dL RDW Std Deviation (36.4-46.3) fL RDW Coeff of Jacqueline (11.5-14.5) % Plt Count (130-400) K/uL MPV (7.4-10.4) fL Immature Gran % (Auto) % Neut % (Auto) % Lymph % (Auto) % Davis % (Auto) % Eos % (Auto) % Baso % (Auto) % Neut # (Auto) (1.4-6.5) K/uL Lymph # (Auto) (1.2-3.4) K/uL Davis # (Auto) (0.11-0.59) K/uL Eos # (Auto) (0-0.5) K/uL Baso # (Auto) (0-0.2) K/uL Immature Gran # (Auto) (0.00-0.02) K/uL Sodium (136-145) mmol/L Potassium Chloride (98-107) mmol/L Carbon Dioxide (21-32) mmol/L Anion Gap (3-11) BUN (6-23) mg/dl Creatinine (0.6-1.2) mg/dl Est Cr Clr Drug Dosing ml/min Est GFR ( Amer) ml/min Est GFR (Non-Af Amer) ml/min BUN/Creatinine Ratio (10-20) Glucose (70-99(Fasting)) mg/dl POC Glucose 442 H* (70-99) mg/dl Lactate (0.4-2.0) mmol/L Calcium (8.5-10.1) mg/dl Magnesium (1.7-2.4) mg/dl Total Bilirubin (0.2-1.0) mg/dl AST ALT (7-52) U/L Alkaline Phosphatase (34-104) U/L Total Creatine Kinase (26-192) U/L Troponin I (0-0.04) ng/ml Total Protein (6.0-8.3) gm/dl Albumin (3.4-5.0) gm/dl Globulin (2.5-4.0) gm/dl Albumin/Globulin Ratio (0.9-2) Procalcitonin SARS-CoV-2 (PCR) (Negative) Influenza Type A (PCR) (Neg) Influenza Type B (PCR) (Neg) RSV (RT-PCR) (Neg) Imaging Data Radiologist's Impression: Head CT 07/23/21 13:30 CT head/brain wo con CLINICAL HISTORY: trauma Technique: Contiguous axial CT images of the head were acquired from the base of the skull to the vertex without intravenous contrast administration. Images were viewed in brain, subdural and bone windows. Automated dose lowering techniques and/or adjustment according to patient size were utilized for this exam. Comparison: Comparison is made to CT head 10/13/2020 Findings: The ventricles, basal cisterns, and cerebral sulci are normal. There is no acute intracranial hemorrhage or evidence of acute territorial infarction. Neither mass effect, shift of the midline structures, nor abnormal extra-axial fluid collections are shown. Imaged portions of the paranasal sinuses and mastoid air cells are clear. The orbits appear normal. There are no acute fractures of the calvaria or scalp swelling. Impression: No acute intracranial hemorrhage, no evidence of acute territorial infarction or other acute intracranial disease process. ACT 112: Negative or not required by law. Electronically signed by: Jese Oviedo M.D. 07/23/2021 2:[address] 07/23/21 13:[address] DOSE: HISTORY: Fall. Neck pain. trauma TECHNIQUE: Multiaxial CT images of the cervical spine were performed and reformatted in the sagittal and coronal plane without the use of contrast. A dose lowering technique was utilized adhering to the principles of ALARA. COMPARISON: None. FINDINGS: No fractures. No subluxation. Prevertebral soft tissues and the C1-C2 interval are intact. No pneumothorax. Moderate to severe degenerative disc disease within the cervical spine. IMPRESSION: No fractures within the cervical spine. ACT 112: Negative or not required by law. Electronically signed by: Reinaldo Adams M.D. 07/23/2021 2:09 PM Chest X-Ray 07/23/21 13:31 XR chest 1V portable HISTORY: Fall. hypoxia COMPARISON: Chest 10/13/2020. FINDINGS: No pneumothorax. The heart remains enlarged. There are poststernotomy changes. There is mild central pulmonary vascular congestion without overt rita ma. This has slightly progressed. Suspect trace bilateral pleural fusions. IMPRESSION: Cardiomegaly with mild pulmonary vascular congestion and trace bilateral pleural effusions. ACT 112: Negative or not required by law. Electronically signed by: Reinaldo Adams M.D. 07/23/2021 2:10 PM ECG Data Attestation: I personally reviewed and interpreted this ECG as follows: Indication: + weakness Rate (beats per minute): 151 Rhythm: + sinus tachycardia ECG Intervals/blocks: + IVCD and + Prolonged QT ECG Otley: + Normal ECG ST segments: + Nonspecific ST abnormalities Additional Comments: Significant baseline artifact noted MDM Narrative This is a 75 yo female brought in from home after being found by family from a suspected fall with increased weakness and increased oxygen requirement despite chronic home use. Patient with complicated medical history, no family present and patient a poor historian. Patient appeared clinically dehydrated but has hx of CHF so cautious IVF were given. VS stable, oxygen increased to 4 lpm to brandon ntain sats low to mid 90's which is increased from her baseline. Patient denied pain, however CT and xray imaging performed as a precaution. No acute trauma noted, CXR with small b/l pl effusion. Given hx, I suspect more chronic, however with new hypoxia, possible contributing to current symptoms. Labs sent and showed leukocytosis. Initially thought to be from stress rx, dehydration, and possible cellulitis of RLE. Procal and cultures added and procal elevated. IV antibiotics given as a precaution. CIERA suspected to be from dehydration primarily. Hyperglycemia noted without DKA. Patient given SQ insulin while other studies pending. TAchycardia did improved while in the ER, presumably from IVF and improved oxygenation, however didn't resolve. No fever noted. Given persistent tachycardia with worsening hypoxia, pt sent back to CT as a precaution and found to have PE. Heparin drip started. No right heart strain however troponin elevated in labs, unclear if from CIERA vs PE vs infection. IV magnesium given for repletion. Case discussed with hospitalist team. UA still pending. VS stable while in the ER. Patient continued to deny any complaints. An order was placed for continuous cardiac monitoring. The monitor shows a rate of _112_ with _sinus tachycardia__ rhythm. Impression & Plan CIERA (acute kidney injury), Elevated troponin, Hypomagnesemia, Dehydration, Pulmonary embolism, Acute and chronic respiratory failure, Hypoxia, Generalized weakness, Lower extremity edema, Fall, Sepsis Discharge Plan Visit Data Chief Complaint: Fall Stated Complaint: FALL, WEAKNESS ED Provider: Zaida Uriarte Discharge Problem: CIERA (acute kidney injury), Elevated troponin, Hypomagnesemia, Dehydration, Pulmonary embolism, Acute and chronic respiratory failure, Hypoxia, Generalized weakness, Lower extremity edema, Fall, Sepsis Patient Disposition: Admitted As Inpatient Discharge Instructions Interventions: ED Discharge Assessment Last Done: 07/23/21 18:46
[2021-07-23 13:56] LABS: Basophils # (auto) 0.01 K/uL (0-0.2); Basophils % (auto) 0.1 %; Hematocrit (blood only) 36.5 % (37-47); Hemoglobin 11.6 g/dL (12.0-16.0); Immature Granulocytes # (auto) 0.04 K/uL (0.00-0.02); Immature Granulocytes % (auto) 0.2 %; Lymphocytes # (auto) 0.37 K/uL (1.2-3.4); Lymphocytes % (auto) 1.9 %; Mean Corpuscular Hemoglobin 29.3 pg (25-34); Mean Corpuscular Hgb Conc 31.8 g/dL (32-36); Mean Corpuscular Volume 92.2 fL (80-100); Mean Platelet Volume 10.5 fL (7.4-10.4); Monocytes # (auto) 0.54 K/uL (0.11-0.59); Monocytes % (auto) 2.8 %; Neutrophils # (auto) 18.39 K/uL (1.4-6.5); Platelet Count 284 K/uL (130-400); RDW Coefficient of Variation 15.2 % (11.5-14.5); RDW Standard Deviation 51.4 fL (36.4-46.3); Red Blood Count 3.96 M/uL (4.2-5.4); White Blood Count 19.35 K/uL (4.8-10.8)
--- NOTE | 2021-07-23 14:05 | CT Scan Report ---
CT head/brain wo con CLINICAL HISTORY: trauma Technique: Contiguous axial CT images of the head were acquired from the base of the skull to the niranjan naldo without intravenous contrast administration. Images were viewed in brain, subdural and [facility]. Automated dose lowering techniques and/or adjustment according to patient size were utilized for this exam. Comparison: Comparison is made to CT head 10/13/2020 Findings: The ventricles, basal cisterns, and cerebral sulci are normal. There is no acute intracranial hemorrh age or evidence of acute territorial infarction. Neither mass effect, shift of the midline structures , nor abnormal extra-axial fluid collections are shown. Imaged portions of the paranasal sinuses and mastoid air cells are clear. The orbits appear normal. There are no acute fractures of the calvaria or scalp swelling. Impression: No acute intracranial hemorrhage, no evidence of acute territorial infarction or other acute intracra nial disease process. ACT 112: Negative or not required by law. Electronically signed by: Jese Oviedo M.D. 07/23/2021 2:03 PM
--- NOTE | 2021-07-23 14:10 | CT Scan Report ---
CERVICAL SPINE CT CT DOSE: HISTORY: Fall. Neck pain. trauma TECHNIQUE: Multiaxial CT images of the cervical spine were performed and reformatted in the sagittal and coronal plane without the use of contrast. A dose lowering technique was utilized adhering to th e principles of ALARA. COMPARISON: None. FINDINGS: No fractures. No subluxation. Prevertebral soft tissues and the C1-C2 interval are intact. No pneumothorax. Moderate to severe degenerative disc disease within the cervical spine. IMPRESSION: No fractures within the cervical spine. ACT 112: Negative or not required by law. Electronically signed by: Reinaldo Adams M.D. 07/23/2021 2:09 PM
--- NOTE | 2021-07-23 14:12 | XRay Report ---
XR chest 1V portable HISTORY: Fall. hypoxia COMPARISON: Chest 10/13/2020. FINDINGS: No pneumothorax. The heart remains enlarged. There are poststernotomy changes. There is mil d central pulmonary vascular congestion without overt edema. This has slightly progressed. Suspect tr saul bilateral pleural fusions. IMPRESSION: Cardiomegaly with mild pulmonary vascular congestion and trace bilateral pleural effusions. ACT 112: Negative or not required by law. Electronically signed by: Reinaldo Adams M.D. 07/23/2021 2:10 PM
[2021-07-23 14:25] LABS: Alanine Aminotransferase 21 U/L (7-52); Albumin Globulin Ratio 0.7 (0.9-2); Albumin Level 3.3 gm/dl (3.4-5.0); Alkaline Phosphatase 90 U/L (34-104); Anion Gap 10 (3-11); BUN Creatinine Ratio 20.3 (10-20); Bilirubin,Total 0.8 mg/dl (0.2-1.0); Blood Urea Nitrogen 39 mg/dl (6-23); Calcium 9.6 mg/dl (8.5-10.1); Carbon Dioxide 27 mmol/L (21-32); Chloride 98 mmol/L (98-107); Creatinine Clr Calc Pharmacy 28.9 ml/min; Est GFR (African American) 28.6 ml/min; Est GFR (Non-African American) 24.7 ml/min; Globulin 4.8 gm/dl (2.5-4.0); Magnesium 1.2 mg/dl (1.7-2.4); Sodium 135 mmol/L (136-145); Total Protein 8.1 gm/dl (6.0-8.3); Troponin I 0.22 ng/ml (0-0.04)
[2021-07-23 14:26] LABS: Glucose 486 mg/dl (70-99(Fasting))
[2021-07-23 15:06] LABS: Potassium 4.4 mmol/L (3.5-5.1)
[2021-07-23] MEDS ORDERED: NovoLIN-R INSULIN PER UNIT CHARGE SC STA ×3 (15:38→17:45)
--- NOTE | 2021-07-23 16:13 | Electrocardiogram Report ---
Test Reason : Blood Pressure : / mmHG Vent. Rate : 151 BPM Atrial Rate : 153 BPM P-R Int : 000 ms QRS Dur : 132 ms QT Int : 336 ms P-R-T Axes : 000 084 -04 degrees QTc Int : 532 ms Poor data quality, interpretation may be adversely affected Supraventricular tachycardia (possibly atrial flutter with 2:1 block) Right bundle branch block Abnormal ECG When compared with ECG of 14-OCT-2020 09:54, Vent. rate has increased BY 84 BPM SVT vs. aflutter now present Confirmed by Fabián Hilton ([id number]) on 07/23/2021 4:13:13 PM Referred By: REFERRED SELF Confirmed By:Fabián Hilton
[2021-07-23] MEDS ORDERED: CEFEPIME 2,000 MG/20 ML VIAL IV STA (16:40)
[2021-07-23] MEDS: MAGNESIUM SULFATE / D5W 1 GM/100 ML BAG IV SCH ×4 (17:01→18:32)
[2021-07-23] MEDS ORDERED: SODIUM CHLORIDE 0.9% 1000ML 1,000 ML IV SCH ×2 (17:30→19:00)
[2021-07-23 17:44] LABS: Influenza A virus by PCR Negative (Neg); Influenza B virus by PCR Negative (Neg); RSV by PCR Negative (Neg); SARS CoV2 RNA(COVID-19) InHosp NEGATIVE (Negative)
[2021-07-23] MEDS ORDERED: OPTIRAY 320 125ml IV ONE (17:46)
--- NOTE | 2021-07-23 17:58 | CT Scan Report ---
CT angio chest PE protocol CLINICAL HISTORY: PE TECHNIQUE: Multidetector row helical CT of the chest was performed with angiographic protocol. Rdz l and sagittal reformations were obtained. Coronal and sagittal MIPS were obtained from the axial so a set and were submitted for review. Automated dose lowering techniques and/or adjustment according to patient size were utilized for this exam. Comparison: None available at the time of this dictation. FINDINGS: Lungs and pleura: Atelectasis versus scarring is seen in the dependent portions of the lungs. Heart and pericardium: There is cardiomegaly without evidence of pericardial effusion. Atrial valve p rosthesis is seen. Vessels: Pulmonary bullous is seen in the right lower lobe artery and its branches as well as in mult iple segmental branches of the right upper lobe. No left-sided embolus is definitely seen. Reformatte d trunk measures 41 mm in diameter. Moderate atherosclerotic disease is seen. Reflux of contrast is s een into the hepatic vein which can be seen with heart failure. Mediastinum and stephanie: Unremarkable. Chest wall and lower neck: Unremarkable. Abdomen: Unremarkable. Bones: Degenerative changes in the thoracic spine. IMPRESSION: 1. Lobar and segmental pulmonary emboli on the right. No evidence of right heart strain is seen. 2. Pulmonary hypertension. ACT 112: Negative or not required by law. Electronically signed by: Jese Oviedo M.D. 07/23/2021 5:57 PM
[2021-07-23] MEDS ORDERED: Heparin IV Adult Wt-Based Standard WITH Bolus Protocol IV STA (18:04)
[2021-07-23] MEDS: HEPARIN SODIUM/DEXTROSE 25,000 UNITS/500 ML BAG IV SCH (18:19)
[2021-07-23] MEDS ORDERED: HEPARIN SOD (PORCINE) 1000 UNIT/ML IV ONE (18:19)
--- NOTE | 2021-07-23 18:37 | History & Physical Report ---
Date of Service July 23, 2021 Assessment & Plan (1) Pulmonary embolism: Plan: Presented with history of fall but noted to have shortness of breath on presentation with tachycardia CT angio of the chest showed right-sided pulmonary embolism involving lobar and segmental area without any cardiac strain We will get ultrasound of the legs Has been is started on intravenous heparin Discussed with the son the pros and cons of heparin use Will need subsequent oral anticoagulation for 3 to 6 months at least (2) Sepsis: Plan: Noted to have tachycardia, tachypnea, fever and increased white count. Lactate pending Likely has sepsis secondary bilateral leg cellulitis Blood cultures were taken We will send urine for culture She will be started with intravenous ceftriaxone for now (3) UTI (urinary tract infection): Plan: Possible UTI Urine will be sent for culture As above (4) Cellulitis of left leg: Plan: History of bilateral leg cellulitis Legs remain edematous with cellulitis Wound care consult (5) CIERA (acute kidney injury): Plan: Has chronic kidney disease Presently with acute on chronic kidney impairment We will give cautious amount of intravenous fluid with history of aortic stenosi s (6) Generalized weakness: Plan: Remains generally weak and lethargic Came in with history of fall no obvious injury (7) Paroxysmal A-fib: Plan: History of paroxysmal A. fib Remains tachycardic likely flutter with 2 to 1 block Continue beta-flores (8) Diastolic CHF: Plan: No evidence of any acute failure (9) COPD (chronic obstructive pulmonary disease): Plan: Does not have any acute exacerbation (10) Diabetes mellitus with insulin therapy: Plan: Continue insulin regimen Blood sugar AC at bedtime Plan: Other medical conditions noted DVT prophylaxis IV heparin CODE STATUS Full code-discussed with the son History of Present Illness Chief Complaint: Increasing weakness and a fall at home Primary Care Provider: Tasneem Francisco DO She is a 74 years old and morbidly obese female with significant past medical history of KENAN, paroxysmal atrial fibrillation, type 2 diabetes on insulin, hypertension, diastolic CHF, hyperlipidemia, GERD, pulmonary hypertension, apparently was brought into the ER by the EMS following a fall at home. She lives with her son and the son found her in between bed and the dresser when he came back from work and called EMS who brought her to the emergency room. She has been pleasantly confused and could not get any significant history from her. History is taken from his son. She has been living with her son and for the last few weeks she has been sleeping on the chair and her ambulation has been decreased due to generalized weakness and may have some shortness of breath. She did not complain any pain, any known fever and/or chills, any nausea and or vomiting. And the son did not notice any increasing swelling and/or cellulitis involving the legs. In the emergency room she was noted to have tachycardia, tachypnea, temperature of 37.6 with a white count of 19.25 and urine suggestive of infection. She also was noted to have pulmonary embolism and has bilateral leg cellulitis. She was started with intravenous heparin and also cefepime to cover UTI and bilateral leg cellulitis and was admitted to telemetry unit for continuation of care. Allergies Allergy/AdvReac Type Severity Reaction Status Date / Time No Known Allergies Allergy Mild Verified 07/23/21 18:29 Home Medications Medication Instructions Recorded Confirmed Type aspirin 81 mg chewable tablet 81 mg PO DAILY 04/08/20 07/23/21 History atorvastatin 20 mg tablet (Lipitor) 20 mg PO DAILY 04/08/20 07/23/21 History ferrous sulfate 325 mg (65 mg 325 mg PO DAILY 04/08/20 07/23/21 History iron) tablet insulin glargine 100 unit/mL (3 50 unit SUBCUT QAM ml 04/08/20 07/23/21 History mL) subcutaneous pen (Lantus Solostar U-100 Insulin) lisinopril 5 mg tablet 5 mg PO DAILY 04/08/20 07/23/21 History cinnamon bark 500 mg capsule 500 mg PO DAILY 07/23/21 07/23/21 History (Cinnamon) insulin regular human 100 unit/mL 10 unit SUBCUT AC 07/23/21 07/23/21 History (3 mL) subcutaneous pen (Novolin R Flexpen) multivitamin 1 tab PO DAILY 07/23/21 07/23/21 History omega 6-dgg-jst-fish oil 1,000 mg 1 cap PO BID 07/23/21 07/23/21 History (120 mg-180 mg) capsule (Fish Oil) potassium chloride 10 mEq 10 meq PO DAILY 07/23/21 07/23/21 History tablet,extended release Past Med/Surg History Medical History Aortic valve stenosis CKD (chronic kidney disease) stage 3, GFR 30-59 ml/min Diabetes Diastolic CHF Dyslipidemia GERD (gastroesophageal reflux disease) HTN (hypertension) Morbid obesity with BMI of 50.0-59.9, adult Obstructive sleep apnea Paroxysmal A-fib Pulmonary HTN Vitamin D deficiency Surgical History S/P AVR Social History Smoking Status: Unknown if ever smoked Second Hand Exposure: No; Hx Alcohol Use: No Hx Substance Use: No Preferred Language: Nepali Communication Ability: Effective Piece Presser Required: No Beliefs That Will Affect Care: None Current Living Situation: Family Current Living Situation Comment: lives with son Felipe Feels Safe at Home: Yes Assistive Devices: Oxygen - Continuous Review of Systems Review of Systems: All systems reviewed & are unremarkable except as noted in HPI & below Neurologic: Alert and awake. Pleasantly confused. Generally weak. Moves all extremities Physical Exam Physical Exam: Lying in bed with moderate shortness of breath Constitutional: well developed, well nourished, + ill appearing and + morbidly obese Eyes: PERRL, conjunctivae normal, anicteric sclerae ENMT: external ear and nose normal, oropharynx normal Neck: trachea midline, no thyromegaly Respiratory: + respiratory distress Auscultation: + diminished lung sounds and + crackles (Minimal crackles at the bases); no wheezes Cardiovascular: Rate/Rhythm: regular rate, regular rhythm and + tachycardic Heart Sounds: normal S1, normal S2 and + murmur (2/6 ESM over precordium) Extremities: + edema (Bilateral 1-2+ leg edema with chronic skin changes and cellulitis) Gastrointestinal (Abdomen): Inspection/Auscultation: + abdomen distended and normal bowel sounds Percussion/Palpation: abdomen soft; abdomen nontender Musculoskeletal: No acute arthritis in any joint Neurologic: Alert and awake. Pleasantly confused-not sure about the baseline. Generally weak and lethargic Results & Data Results & Data ([facility]) Vital Signs (Past 12 Hours) Vital Signs Temp Pulse Pulse Resp BP BP Pulse Ox 07/23/21 15:47 100 H 18 108/54 L 96 07/23/21 13:05 37.6 C H 112 H 20 125/100 86 L Laboratory Results Short CBC 07/23/21 Range/Units 13:34 WBC 19.35 H (4.8-10.8) K/uL Hgb 11.6 L (12.0-16.0) g/dL Hct 36.5 L (37-47) % Plt Count 284 (130-400) K/uL BMP 07/23/21 07/23/21 13:34 14:22 Sodium 135 L Potassium TNP 4.4 Chloride 98 Carbon Dioxide 27 BUN 39 H Creatinine 1.92 H Glucose 486 H* Calcium 9.6 Cardiac Enzymes 07/23/21 Range/Units 13:34 Troponin I 0.22 H* (0-0.04) ng/ml Liver Function 07/23/21 07/23/21 Range/Units 13:34 14:22 Total Bilirubin 0.8 (0.2-1.0) mg/dl AST TNP 36 ALT 21 (7-52) U/L Alkaline Phosphatase 90 (34-104) U/L Albumin 3.3 L (3.4-5.0) gm/dl Medications Administered Current Inpatient Medications Magnesium Sulfate/Dextrose (Magnesium Sulfate / D5w) 1 gm in 100 mls @ 100 mls/hr IV Q1H SIMEON Stop: 07/23/21 18:43 Last Admin: 07/23/21 17:11 Dose: Not Given Documented by: Sodium Chloride (Nss 1000ml) 1,000 mls @ 200 mls/hr IV .Q5H SIMEON Stop: 08/22/21 17:29 Last Admin: 07/23/21 18:09 Dose: 200 mls/hr Documented by: Heparin Sodium/Dextrose (Heparin Sodium/Dextrose) 25,000 units in 500 mls @ 0.02 mls/hr IV .Q24H SIMEON; Protocol Stop: 08/22/21 18:29 Last Admin: 07/23/21 18:19 Dose: 1,350 units/hr, 27 mls/hr Documented by: Cefepime HCl 2,000 mg/ Syringe 20 mls @ 5 mls/min IV BID SIMEON; Protocol Stop: 07/28/21 20:59 Code Status & VTE Plan VTE Prophylaxis Plan VTE Prophylaxis will be ordered: Yes
[2021-07-23] MEDS ORDERED: CEFEPIME 2,000 MG in SYRINGE 0 ML IV ONE (20:00)
[2021-07-23] MEDS ORDERED: GLUCOSE 40% GEL 15 GM TUBE PO PRN (20:00)
[2021-07-23] MEDS ORDERED: DEXTROSE 50% 50 ML SYRINGE IV PRN (20:00)
[2021-07-23] MEDS ORDERED: GLUCAGON FOR INJ 1 MG VIAL IM PRN (20:00)
[2021-07-23] MEDS ORDERED: GLUCOSE 10 TABS/TUBE PO PRN (20:00)
[2021-07-23] MEDS ORDERED: CARBOHYDRATES FOR HYPOGLYCEMIA PO PRN (20:00)
[2021-07-23] MEDS: INSULIN ASPART PER UNIT SC SCH (20:26)
[2021-07-23] MEDS: INSULIN GLARGINE SOLOSTAR 100 UNITS/ML 3 ML PEN SQ SCH (20:41)
[2021-07-23] MEDS: FERROUS SULFATE 325 MG TAB PO SCH (21:54)
[2021-07-23] MEDS: OMEGA-3 (PURIFIED FISH OIL) 1 GM CAP PO SCH (21:54)
[2021-07-24 01:14] LABS: Partial Thromboplastin Ratio 2.2
[2021-07-24 01:28] LABS: Partial Thromboplastin Time 60.4 Seconds (21.0-31.0)
--- NOTE | 2021-07-24 03:17 | Communication Note ---
Date of Service: July 24, 2021 Patient still febrile on ongoing ceftriaxone Rx as per RN. Change ceftriaxone to cefepime for broader coverage. Follow CS, obtain UA.
[2021-07-24] MEDS: ACETAMINOPHEN 325 MG TAB PO PRN (03:44)
[2021-07-24] MEDS ORDERED: ALBUMIN 25% 100 mL 25 GM/100 ML VIAL IV ONE ×2 (03:45→06:45)
[2021-07-24] MEDS ORDERED: CEFEPIME 2,000 MG in SYRINGE 0 ML IV ONE (03:45)
[2021-07-24 05:43] LABS: Appearance Urine Turbid (Clear); Bacteria Urine Automated Negative (Negative); Bilirubin Urine Negative (Negative); Blood Urine 2+ (Negative); Color Urine Yellow; Epithelial Cell Urine Auto >30 /lpf (0-5); Glucose Urine UA 1+ (Negative); Ketones Urine Negative (Negative); Leukocyte Esterase Urine 3+ (Negative); Nitrite Urine Negative (Negative); Protein Urine 1+ (Negative); Specific Gravity Urine 1.034 (1.000-1.030); Urobilinogen Urine Negative (Negative); WBC Urine Automated >30 /hpf (0-5)
[2021-07-24 05:48] LABS: Basophils # (auto) 0.01 K/uL (0-0.2); Basophils % (auto) 0.1 %; Hematocrit (blood only) 32.2 % (37-47); Hemoglobin 10.1 g/dL (12.0-16.0); Immature Granulocytes # (auto) 0.03 K/uL (0.00-0.02); Immature Granulocytes % (auto) 0.2 %; Lymphocytes # (auto) 0.77 K/uL (1.2-3.4); Lymphocytes % (auto) 4.8 %; Mean Corpuscular Hemoglobin 29.3 pg (25-34); Mean Corpuscular Hgb Conc 31.4 g/dL (32-36); Mean Corpuscular Volume 93.3 fL (80-100); Mean Platelet Volume 9.9 fL (7.4-10.4); Monocytes # (auto) 0.57 K/uL (0.11-0.59); Monocytes % (auto) 3.6 %; Neutrophils # (auto) 14.62 K/uL (1.4-6.5); Neutrophils % (auto) 91.3 %; Platelet Count 228 K/uL (130-400); RDW Coefficient of Variation 15.4 % (11.5-14.5); RDW Standard Deviation 52.6 fL (36.4-46.3); Red Blood Count 3.45 M/uL (4.2-5.4)
[2021-07-24 06:02] LABS: RBC Urine Automated 0-4 /hpf (0-4)
[2021-07-24] MEDS: MICONAZOLE NITRATE POWDER 43 GM EXT SCH ×2 (07:08→19:51)
[2021-07-24 07:14] LABS: BUN Creatinine Ratio 25.9 (10-20); Calcium 9.1 mg/dl (8.5-10.1); Creatinine Clr Calc Pharmacy 38.5 ml/min; Est GFR (African American) 35.1 ml/min; Est GFR (Non-African American) 30.3 ml/min; Magnesium 1.5 mg/dl (1.7-2.4); Potassium 4.1 mmol/L (3.5-5.1)
--- NOTE | 2021-07-24 07:40 | Ultrasound Report ---
US venous doppler LE BI CLINICAL HISTORY: r/o DVT COMPARISON: Comparison is made to venous ultrasound 10/15/2020 TECHNIQUE: Bilateral lower extremity real-time compression venous ultrasound with Color Doppler imagi ng. Utilizing real-time ultrasonic imaging multiple real time high-resolution ultrasonic images with comp ression and noncompression maneuvers of the deep venous system in addition to color doppler imaging w ere performed from the common femoral vein through the proximal calf veins. FINDINGS: An occlusive thrombus is seen in one popliteal vein on the left, the left lower extremity features a duplicated venous system. In the right lower extremity, there is a nonocclusive thrombus seen in the proximal popliteal vein. A right groin lymph node measures 12 mm in short axis with a fatty hilum. Ev aluation of the bilateral calf vessels is limited due to edema. Impression: Bilateral deep venous thrombus, nonocclusive on the right in the popliteal vein and nonocclusive on t he left in a duplicated popliteal vein. ACT 112: Negative or not required by law. Electronically signed by: Jese Oviedo M.D. 07/24/2021 7:38 AM
[2021-07-24] MEDS: INSULIN ASPART PER UNIT SC SCH ×4 (08:14→20:38)
[2021-07-24] MEDS: FERROUS SULFATE 325 MG TAB PO SCH ×2 (08:15→19:50)
[2021-07-24] MEDS: OMEGA-3 (PURIFIED FISH OIL) 1 GM CAP PO SCH ×2 (08:16→19:50)
[2021-07-24] MEDS: MAGNESIUM CHLORIDE 64MG DELAYED REL TAB PO SCH (08:16)
[2021-07-24] MEDS: POTASSIUM CHLORIDE 10 MEQ TABCR PO SCH (08:16)
[2021-07-24] MEDS: ASPIRIN 81 MG ECTAB PO SCH (08:16)
[2021-07-24] MEDS: ATORVASTATIN 20 MG TAB PO SCH (08:16)
[2021-07-24] MEDS ORDERED: cefTRIAXone SODIUM 2,000 MG in DEXTROSE 5% 50 ML IV SCH (09:00)
[2021-07-24] MEDS ORDERED: METOPROLOL SUCC 50MG EXT REL TAB PO SCH (09:00)
[2021-07-24] MEDS: MAGNESIUM SULFATE / D5W 1 GM/100 ML BAG IV SCH ×2 (11:10→13:37)
[2021-07-24] MEDS: CEFEPIME 2,000 MG in SYRINGE 0 ML IV SCH ×2 (12:13→22:56)
--- NOTE | 2021-07-24 13:07 | Hospitalist Progress Note ---
Date of Service July 24, 2021 Assessment & Plan (1) Sepsis: (2) Pulmonary embolism: Plan: 74 years old and morbidly obese female w/ PMH of KENAN, paroxysmal atrial fibrillation, type 2 diabetes on insulin, hypertension, diastolic CHF, hyperlipidemia, GERD, pulmonary hypertension, apparently was brought into the ER 07/23 by the EMS following a fall at home. She lives with her son who found her in between bed and dresser after coming back from work. She is being managed for the following: #. Cellulitis RLE #. Sepsis POA: At presentation, tachycardic and with elevated WBC on the background of RLE cellulitis. Febrile but temperature below 38 degree C Patient has history of BLE cellulitis. On exam, chronic BLE skin changes/edematous, mostly non pitting. --> Lac hydrin lotion. Patient does have right heel superficial ulcer with surrounding erythema and tenderness, likely source of RLE cellulitis. Get x-ray right foot. Admitting blood culture, pending. Admitting pro-Efraín 13.45 Wound care nurse on board, appreciate recommendation. Patient was still febrile on ceftriaxone started at admission, overnight was changed to Cefepime c/w cefepime 07/24, ID consult. #. Bilateral DVT #. Pulmonary embolism: likely secondary to above Patient has shortness of breath on presentation with tachycardia. Admitting bilateral venous Doppler: Positive for nonocclusive DVT Admitting CTA chest: Positive for right sided PE, no evidence of right heart strain noted. Continue with heparin drip, patient would like to go with cheaper oral alternatives. Agreeable to send Eliquis to pharmacy for cost assessment. Will need to be in touch with PCP for anticoagulation work-up and further discussion on anticoagulation treatment. Will need at least 6 months of therapy. #. Presumed UTI UA suggestive, urine culture pending Patient denies any pain or burning while passing urine. Patient is on antibiotic for RLE cellulitis. #. CIERA over CKD stage III Baseline creatinine around 0.8-1 Admitting creatinine of 1.92, improving Monitor BMP daily and as appropriate. #. Generalized weakness #. Fall Came in with fall with no obvious injury Remains generally weak and lethargic Uses 3 L oxygen at home Admitting CT head, C-spine CT, CXR reviewed. #. Other chronic medical conditions: Paroxysmal A. fib, diastolic CHF, COPD, DM on insulin therapy Continue with/resume home medications as and when appropriate. DVT prophylaxis: On heparin drip. CODE STATUS: Full code Admission and Anticipated Discharge Date Admission Date: July 23, 2021 Subjective Patient seen and examined at bedside as a follow-up of bilateral DVT and pulmonary embolism, RLE cellulitis, CIERA/CKD stage III. Patient was lying in bed, on 4 L nasal cannula oxygen, NAD, no new acute events overnight. Patient denies any pain or palpitation or chest pain. She did report having some pain in the right heel while her wound care was working on it. Patient reports eating okay and moving bowels okay. Patient denies any pain or burning with passing urine. Patient denies any fever/chills/headache/chest pain/palpitations/belly pain/othe r review of symptoms. Physical Exam Physical Exam: GENERAL: Alert and oriented x3. NAD, on 4L NC O2, Morbidly obese. HEENT: No pallor, no icterus. Pupils equal, round and reactive to light. Oral mucosa moist. NECK: No JVD, no neck masses. HEART: S1 and S2 heard. Regular rate and rhythm. No murmur, no gallop. RESPIRATORY SYSTEM: Normal AP diameter. No accessory muscle use. No wheezing, no crackles. ABDOMEN: Soft, bowel sounds present, nontender, no distention. CENTRAL NERVOUS SYSTEM: No facial droop. Speech is clear. Obeys simple commands. Moves extremities. EXTREMITIES: BLE edematous, mostly non pitting. BLE chronic skin changes w/ warmth and erythema to RLE, jorge luis leg and heel. Rt heel with superficial ulcer w/ surrounding erythema, and tenderness. Results & Data Results & Data ([facility]) Vital Signs (Past 12 Hours) Vital Signs Temp Pulse Pulse Resp BP Pulse Ox 07/24/21 12:22 123/65 07/24/21 11:47 36.9 C 86 22 87/52 L 95 07/24/21 08:03 37 C 89 19 119/60 90 07/24/21 08:00 77 07/24/21 06:32 88/50 L 07/24/21 06:20 84/41 L 07/24/21 05:30 37 C 07/24/21 03:02 37.9 C H 92 H 20 102/40 L 95
[2021-07-24] MEDS: HEPARIN SODIUM/DEXTROSE 25,000 UNITS/500 ML BAG IV SCH (14:21)
--- NOTE | 2021-07-24 16:27 | XRay Report ---
XR foot RT 2V CLINICAL HISTORY: Right heel ulcer/?blister Cellulitis heel COMPARISON STUDY: None. FINDINGS: There is extensive soft tissue swelling throughout the right foot. Large plantar heel spur. Skin ulcerations noted at the plantar and posterior aspect of the heel. The bones are osteopenic. Mi ld to moderate osteoarthritis within the foot. Appears to be nondisplaced fracture at the medial base of the right fifth toe proximal phalanx. This may be subacute. Focal indentation within the posterio r superior calcaneus which is likely chronic. No definite erosive changes identified to suggest an os teomyelitis. However, the posterior calcaneus is partially obscured by an overlying blanket. IMPRESSION: 1. Skin ulceration noted at the heel. Repeat dedicated views of the calcaneus are recommended as the heel is partially obscured by an overlying blanket. No definite acute erosive changes to suggest an o steomyelitis. 2. Extensive soft tissue swelling within the right foot. 3. Subacute fracture at the base of the right fifth toe proximal phalanx. ACT 112: Negative or not required by law. Electronically signed by: Reinaldo dAams M.D. 07/24/2021 4:26 PM
[2021-07-24] MEDS ORDERED: CEFEPIME 1,000 MG in SYRINGE 0 ML IV SCH ×2 (18:00→20:00)
[2021-07-24] MEDS: AMMONIUM LACTATE 12% LOTION 225 GM BTL EXT SCH (19:51)
[2021-07-24] MEDS: INSULIN GLARGINE SOLOSTAR 100 UNITS/ML 3 ML PEN SQ SCH (20:38)
[2021-07-25] MEDS ORDERED: CEFEPIME 1,000 MG in SYRINGE 0 ML IV SCH (06:00)
[2021-07-25 06:59] LABS: Basophils # (auto) 0.02 K/uL (0-0.2); Basophils % (auto) 0.2 %; Eosinophils # (auto) 0.07 K/uL (0-0.5); Eosinophils % (auto) 0.6 %; Hematocrit (blood only) 26.7 % (37-47); Hemoglobin 8.2 g/dL (12.0-16.0); Immature Granulocytes # (auto) 0.01 K/uL (0.00-0.02); Immature Granulocytes % (auto) 0.1 %; Lymphocytes # (auto) 1.11 K/uL (1.2-3.4); Lymphocytes % (auto) 9.2 %; Mean Corpuscular Hemoglobin 29.2 pg (25-34); Mean Corpuscular Hgb Conc 30.7 g/dL (32-36); Mean Platelet Volume 10.2 fL (7.4-10.4); Monocytes # (auto) 0.54 K/uL (0.11-0.59); Monocytes % (auto) 4.5 %; Neutrophils # (auto) 10.31 K/uL (1.4-6.5); Neutrophils % (auto) 85.4 %; Platelet Count 225 K/uL (130-400); RDW Coefficient of Variation 15.3 % (11.5-14.5); RDW Standard Deviation 52.7 fL (36.4-46.3); Red Blood Count 2.81 M/uL (4.2-5.4); White Blood Count 12.06 K/uL (4.8-10.8)
[2021-07-25 07:08] LABS: Estimated Average Glucose 301 mg/dl; Hemoglobin A1C 12.1 % (4.5-5.6)
[2021-07-25 07:22] LABS: Partial Thromboplastin Time 54.4 Seconds (21.0-31.0)
[2021-07-25 07:38] LABS: BUN Creatinine Ratio 42.7 (10-20); Calcium 7.7 mg/dl (8.5-10.1); Creatinine Clr Calc Pharmacy 43.6 ml/min; Est GFR (African American) 40.8 ml/min; Est GFR (Non-African American) 35.2 ml/min; Magnesium 1.7 mg/dl (1.7-2.4); Phosphorus 2.6 mg/dl (2.5-4.9); Potassium 4.6 mmol/L (3.5-5.1)
[2021-07-25] MEDS: ATORVASTATIN 20 MG TAB PO SCH (08:07)
[2021-07-25] MEDS: MAGNESIUM CHLORIDE 64MG DELAYED REL TAB PO SCH (08:07)
[2021-07-25] MEDS: AMMONIUM LACTATE 12% LOTION 225 GM BTL EXT SCH ×2 (08:08→22:01)
[2021-07-25] MEDS: ASPIRIN 81 MG ECTAB PO SCH (08:08)
[2021-07-25] MEDS: FERROUS SULFATE 325 MG TAB PO SCH (08:09)
[2021-07-25] MEDS: OMEGA-3 (PURIFIED FISH OIL) 1 GM CAP PO SCH ×2 (08:09→22:01)
[2021-07-25] MEDS: MICONAZOLE NITRATE POWDER 43 GM EXT SCH ×2 (08:10→22:03)
[2021-07-25] MEDS ORDERED: ALBUMIN 25% 100 mL 25 GM/100 ML VIAL IV ONE (08:11)
[2021-07-25] MEDS: INSULIN ASPART PER UNIT SC SCH ×4 (08:16→21:17)
[2021-07-25] MEDS: POTASSIUM CHLORIDE 10 MEQ TABCR PO SCH (08:16)
[2021-07-25] MEDS: HEPARIN SODIUM/DEXTROSE 25,000 UNITS/500 ML BAG IV SCH ×2 (08:17→14:06)
[2021-07-25 08:44] LABS: Hematocrit (blood only) 27.9 % (37-47); Hemoglobin 8.6 g/dL (12.0-16.0)
[2021-07-25] MEDS ORDERED: PANTOprazole 80 MG in DEXTROSE 5% 100 ML IV ONE (08:45)
[2021-07-25] MEDS ORDERED: METOPROLOL SUCC 25MG EXT REL TAB PO SCH (09:00)
--- NOTE | 2021-07-25 10:03 | CT Scan Report ---
RIGHT FOOT CT CT DOSE: 1045.57 mGy.cm HISTORY: Heel ulcers. Assess for osteomyelitis. TECHNIQUE: Multiaxial CT images of the right foot were performed and reformatted in the sagittal and coronal plane without the use of contrast. A dose lowering technique was utilized adhering to the pr inciples of NEO. COMPARISON: Right foot radiograph 07/24/2021. FINDINGS: No fracture or dislocation within the right foot. Large plantar and posterior calcaneal spu rs are noted. No erosions or destructive changes to suggest an osteomyelitis. Moderate osteoarthritis within the foot. There is diffuse skin thickening and mild subcutaneous trace edema. This could be c hronic or represent a cellulitis. There is mild thickening at the distal Achilles tendons adjacent blackwood ggestive of a tendinosis. Focal skin ulceration within the plantar aspect of the heel measuring appro ximately 11 mm. No loculated fluid collections to suggest an abscess. Skin thickening and edema at th e heel suggesting a cellulitis. Mild vascular calcifications are noted. No joint effusions identified . IMPRESSION: 1. An 11 mm skin ulceration at the plantar aspect of the heel. No underlying bony destruction to sugg est an osteomyelitis. 2. Skin thickening and subcutaneous edema within the foot most pronounced at the heel. This may repre sent a cellulitis. 3. No loculated fluid collections to suggest an abscess. 4. Additional chronic findings as described above ACT 112: Negative or not required by law. Electronically signed by: Reinaldo Adams M.D. 07/25/2021 10:02 AM
--- NOTE | 2021-07-25 10:39 | CT Scan Report ---
CT chest diagnostic wo con, CT abd pelvis wo con CT DOSE: HISTORY: Right-sided chest pain. Pulmonary embolus. Right upper quadrant pain TECHNIQUE: Multiaxial CT images of the chest, abdomen, and pelvis were performed without contrast. A dose lowering technique was utilized adhering to the principles of ALARA. COMPARISON: Chest CTA 07/23/2021. Abdomen and pelvis CT 07/11/2016. FINDINGS: Chest CT: The main pulmonary artery remains dilated consistent with pulmonary arterial hypertension. The patient's known right-sided pulmonary emboli are not identified on this noncontrast study. The he art remains mildly enlarged. No pleural or pericardial effusions. No mediastinal or hilar lymphadenop athy. Normal esophagus. Old, healed left anterior rib fractures. There are poststernotomy changes. An aortic valve prosthesis is noted. Mitral anus calcifications are present. Respiratory motion artifac t resulting in suboptimal evaluation of the lungs. No pneumothorax. A few scattered linear densities within the lungs favor subsegmental atelectasis. No new focal lung consolidations identified. Abdomen/pelvis CT: No pneumoperitoneum. No pneumatosis. No fractures within the visualized osseous st ructures. The bladder is decompressed by Bruno catheter. Small amount of gas within the bladder lumen is likely due to the catheterization. There are few prominent bilateral hilar lymph nodes with the l argest on the right measuring 1.5 cm in short axis diameter. These have slightly increased in size in the interval. Suboptimal evaluation of the abdomen and pelvis due to artifact from the patient's abd omen abutting the gantry. Multiple small gallstones. No definite gallbladder wall thickening. The une nhanced liver, pancreas, spleen, and adrenal glands are unremarkable. No retroperitoneal lymphadenopa thy. Normal caliber abdominal aorta. No renal or ureteral stones. No hydronephrosis. Stable lobular a ppearance to the left kidney. The uterus and bilateral adnexa are unremarkable. No pelvic free fluid. Suboptimal evaluation for bowel pathology due to the lack of intravenous and oral contrast. However, no definite bowel wall thickening or obstruction. Colonic diverticulosis. No evidence for acute dive rticulitis. Fluid-filled nondilated colon. Small fat-containing lower midline abdominal hernia. IMPRESSION: 1. The patient's known right-sided pulmonary emboli are not identified this noncontrast study. 2. Stable cardiomegaly and pulmonary arterial hypertension. 3. No new focal lung consolidations to suggest pneumonia. 4. No bowel wall thickening or obstruction. 5. Colonic diverticulosis. No evidence for acute diverticulitis. 6. Fluid-filled colon. This is nonspecific but could represent a mild gastroenteritis. Centimeters st able lobular appearance to the left kidney. 7. Additional findings as described above. ACT 112: Negative or not required by law. Electronically signed by: Reinaldo Adams M.D. 07/25/2021 10:37 AM
[2021-07-25] MEDS: CEFEPIME 2,000 MG in SYRINGE 0 ML IV SCH (11:30)
[2021-07-25] MEDS ORDERED: SODIUM CHLORIDE 0.9% 250 ML IV PRN ×2 (11:40→14:25)
[2021-07-25] MEDS ORDERED: Heparin IV Adult Wt-Based Low-Dose *NO* Bolus Protocol IV STA (12:23)
[2021-07-25 14:15] LABS: Hematocrit (blood only) 25.7 % (37-47); Hemoglobin 7.8 g/dL (12.0-16.0)
--- NOTE | 2021-07-25 15:04 | Hospitalist Progress Note ---
Date of Service July 25, 2021 Assessment & Plan (1) Sepsis: (2) Pulmonary embolism: Plan: 74 years old and morbidly obese female w/ PMH of KENAN, paroxysmal atrial fibrillation, type 2 diabetes on insulin, hypertension, diastolic CHF, hyperlipidemia, GERD, pulmonary hypertension, apparently was brought into the ER 07/23 by the EMS following a fall at home. She lives with her son who found her in between bed and dresser after coming back from work. She is being managed for the following: #. GI bleed, likely upper #. Acute blood loss anemia: 2/2 above Patient reports having no GI doctor as an outpatient, denies any colonoscopy in the past Patient also denies any gastritis/indigestion/reflux symptoms in the past. Patient has been on heparin drip for dvt and PE since 2 days as of 07/25 On 07/25 AM, patient had an episode of large elise colored liquid stool in the morning. FOBT came back positive. Patient denies any headache/dizziness/belly pain/chest pain/palpitation/other review of symptoms at bedside exam. HnH q6H, npo, iv ppi, held heparin drip, d/w GI -- recommendation to run heparin drip periodically, transfuse as needed, and agrees with rest of the plan d/w Vascular Sx over phone -- recommendation to run low dose heparin Patient's son given a phone call to update about the critical situation. He voiced understanding and was agreeable to plan of care. On 07/25 afternoon, patient's heparin drip was held in the morning after the first episode of GI bleed and has not been even started, patient had another episode of large elise colored liquid stool, hemoglobin dropped to 7.8, getting lactate level, transfusing 1 unit prbc. D/w fisher lobster chimney construction supervisor, transferring patient down to icu for close monitoring. Eitan texted to GI, paged to the number per protocol and left call back number, awaiting further response/call back. Pt examined again, without symptoms. Will continue to hold heparin until further recommendation. Patient's son again called and updated further developments including that patient now will be needing ICU care. Clinically, BP is running low normal; she is tachycardic, could be d/t PE vs hypovolemia vs both. Transferring patient down to icu. Total amount of critical time spent on the patient is 35 minutes. #. Cellulitis RLE #. Sepsis POA: At presentation, tachycardic and with elevated WBC on the background of RLE cellulitis. Febrile but temperature below 38 degree C Patient has history of BLE cellulitis. On exam, chronic BLE skin changes/edematous, mostly non pitting. --> Lac hydrin lotion. Patient does have right heel superficial ulcer with surrounding erythema and tenderness, likely source of RLE cellulitis. 07/25 CT Rt foot:11mm skin ulceration w/ cellulitis, no evidence of OM/abscess Admitting blood culture, pending. Admitting pro-Efraín 13.45 Wound care nurse on board, appreciate recommendation. Temperature getting better c/w cefepime 07/24, ID consult. #. Bilateral DVT #. Pulmonary embolism: likely secondary to above Patient has shortness of breath on presentation with tachycardia. Admitting bilateral venous Doppler: Positive for nonocclusive DVT Admitting CTA chest: Positive for right sided PE, no evidence of right heart strain noted. Heparin drip held (see above); oral NOAC vs coumadin at time of DC. Agreeable to send Eliquis to pharmacy for cost assessment. Will need to be in touch with PCP for anticoagulation work-up and further discussion on anticoagulation treatment. #. Presumed UTI UA suggestive, urine culture pending Patient denies any pain or burning while passing urine. Patient is on antibiotic for RLE cellulitis. #. CIERA over CKD stage III Baseline creatinine around 0.8-1 Admitting creatinine of 1.92, improving Monitor BMP daily and as appropriate. #. Generalized weakness #. Fall Came in with fall with no obvious injury Remains generally weak and lethargic Uses 3 L oxygen at home Admitting CT head, C-spine CT, CXR reviewed. #. Other chronic medical conditions: Paroxysmal A. fib, diastolic CHF, COPD, DM on insulin therapy Continue with/resume home medications as and when appropriate. DVT prophylaxis: heparin held re-gi bleed. CODE STATUS: Pt doesn't seem to have living will, confirmed code status with the patient, she is full code. Admission and Anticipated Discharge Date Admission Date: July 23, 2021 Subjective Patient seen and examined at bedside as a follow-up of bilateral DVT and pulmonary embolism, RLE cellulitis, CIERA/CKD stage III. Patient was lying in bed, on 4 L nasal cannula oxygen, NAD, no new acute events overnight. Patient had an episode of large elise colored liquid stool in the morning. FOBT came back positive. Patient denies any headache/dizziness/belly pain/chest pain/palpitation/other review of symptoms. Patient made n.p.o., PPI IV started, GI made aware, got recommendation. Patient also had another episode of large elise colored liquid stool in the afternoon, hemoglobin dropped to 7.8, [place] texted to GI, paged to the normal per protocol, awaiting further response/call back. Transfusing 1 unit PRBC, will put a close eye on her H&H. Discussed with fisher lobster, transferring the patient down to ICU for close monitoring. Pt examined again, without symptoms, getting lactate. Given the complexity of GI bleed and blood clot, contacted with GI and vascular surgery, recommendations from both were to continue heparin intermittently [per GI] and low-dose [per vascular surgery], patient's heparin drip was held in the morning after the first episode of GI bleed and has not been even started, she had another large episode of elise colored liquid stool during the day. Physical Exam Physical Exam: GENERAL: Alert and oriented x3. NAD, on 4L NC O2, Morbidly obese. HEENT: No pallor, no icterus. Pupils equal, round and reactive to light. Oral mucosa moist. NECK: No JVD, no neck masses. HEART: S1 and S2 heard. Regular rate and rhythm. No murmur, no gallop. RESPIRATORY SYSTEM: Normal AP diameter. No accessory muscle use. No wheezing, no crackles. ABDOMEN: Soft, bowel sounds present, nontender, no distention. CENTRAL NERVOUS SYSTEM: No facial droop. Speech is clear. Obeys simple commands. Moves extremities. EXTREMITIES: BLE edematous, mostly non pitting. BLE chronic skin changes w/ warmth and erythema to RLE, jorge luis leg and heel. Rt heel with superficial ulcer w/ surrounding erythema, and tenderness. Results & Data Results & Data ([facility]) Vital Signs (Past 12 Hours) Vital Signs Temp Pulse Resp BP Pulse Ox 07/25/21 11:46 93 H 107/67 07/25/21 11:27 37.1 C 96 H 21 117/58 L 97 07/25/21 07:30 36.8 C 87 20 96/48 L 99 07/25/21 03:42 36.7 C 100 H 22 110/60 95
--- NOTE | 2021-07-25 15:09 | Gastrointestinal Consultation ---
Date of Consultation July 25, 2021 Supervising Physician Co-Signing Physician Notes 75 yo fm admitted a few days ago with a fall, found to have a pe now on heparin gtt, gi now consulted for drop in hgb and also maroon colored stools. Diff: pudz versus hemorrhoidal/diverticular. She has known prior diverticular disease (left sided) per her last colon in 2010. Given her acute pe and need for heparin- would try to cycle that on and off for 4 hours on fours off. Currently given reports of maroon colored stool and drop in hgb without abd pain, suspect this is a diverticular bleed. However, given recent fall and ? ugi source, woudl empirically start an iv ppi. Trend hgb - transfuse as needed. Avoid nsaid's. If signs of brisk maroon colored stools, would suspect an acute diverticular bleed and could consider a tagged rbc scan to localize. Diverticular bleeds tend to be self limited and likely triggered from recent use of new ac. Likely egd +/- flex sig on tuesday, can consider tap water enemas x 2 in the afternoon on tuesday and 2 more late evening on tuesday. History of Present Illness Reason for Consultation: Anemia, ? FOBT positive Requesting Physician: Dr. Singh Attending Physician: Ramana Singh MD History of Present Illness 75 yo fm with a history of being admitted on 07/21 s/p a fall. GI consulted now for drop in hgb alec 2 grams, and reports of maroon colored stool earlier this morning She was admitted on 07/21 after a fall. She was found to have dvt and pe's on heparin gtt. No prior scopes that she is aware of. Has remained hemodynamically stable on reviewed. She has a prior history of afib, cellulitis and currently has a suspected uti on cefipime, diabetes with poor blood sugar control in addition to ckdz. Her hgb is lower than her baseline by alec 2-3 points, bun is chronically elevated given ckdz slightly but slightly higher than before. Last colon per review of her outpatient records was in 2010 with known left sided diverticulosis. When seen in the ICU this afternoon, she is on the phone, reports no complaints of hematemesis, she does not recall dark stools, does not feel like anything is warm coming out of her bottom. Allergies Allergy/AdvReac Type Severity Reaction Status Date / Time No Known Allergies Allergy Mild Verified 07/23/21 18:29 Home Medications Medication Instructions Recorded Confirmed Type aspirin 81 mg chewable tablet 81 mg PO DAILY 04/08/20 07/23/21 History atorvastatin 20 mg tablet (Lipitor) 20 mg PO DAILY 04/08/20 07/23/21 History ferrous sulfate 325 mg (65 mg 325 mg PO DAILY 04/08/20 07/23/21 History iron) tablet insulin glargine 100 unit/mL (3 50 unit SUBCUT QAM ml 04/08/20 07/23/21 History mL) subcutaneous pen (Lantus Solostar U-100 Insulin) lisinopril 5 mg tablet 5 mg PO DAILY 04/08/20 07/23/21 History cinnamon bark 500 mg capsule 500 mg PO DAILY 07/23/21 07/23/21 History (Cinnamon) insulin regular human 100 unit/mL 10 unit SUBCUT AC 07/23/21 07/23/21 History (3 mL) subcutaneous pen (Novolin R Flexpen) multivitamin 1 tab PO DAILY 07/23/21 07/23/21 History omega 9-rex-bel-fish oil 1,000 mg 1 cap PO BID 07/23/21 07/23/21 History (120 mg-180 mg) capsule (Fish Oil) potassium chloride 10 mEq 10 meq PO DAILY 07/23/21 07/23/21 History tablet,extended release Patient History Medical History Aortic valve stenosis CKD (chronic kidney disease) stage 3, GFR 30-59 ml/min Diabetes Diastolic CHF Dyslipidemia GERD (gastroesophageal reflux disease) HTN (hypertension) Morbid obesity with BMI of 50.0-59.9, adult Obstructive sleep apnea Paroxysmal A-fib Pulmonary HTN Vitamin D deficiency Surgical History S/P AVR Social History Smoking Status: Unknown if ever smoked Second Hand Exposure: No; Hx Alcohol Use: No Hx Substance Use: No Preferred Language: Sinhala Communication Ability: Effective Instrument Repair Supervisor Required: No Beliefs That Will Affect Care: None marital status: Current Living Situation: Family Current Living Situation Comment: Lives at home with son Feels Safe at Home: Yes Safety Concerns: Feels Safe At This Time Assistive Devices: Oxygen - Continuous Assistive Devices Comment: Patient states she does use any of the above Review of Systems Review of Systems: All systems reviewed & are unremarkable except as noted in HPI & below Physical Exam Physical Exam: Obese white fm in nad Eyes: PERRL, conjunctivae normal, anicteric sclerae Respiratory: Respirations appeared normal, no audible wheezing noted Gastrointestinal (Abdomen): Soft obese Skin: no rashes, warm and dry Results & Data ([facility]) Vital Signs (Past 12 Hours) Vital Signs Temp Pulse Resp BP Pulse Ox 07/25/21 11:46 93 H 107/67 07/25/21 11:27 37.1 C 96 H 21 117/58 L 97 07/25/21 07:30 36.8 C 87 20 96/48 L 99 07/25/21 03:42 36.7 C 100 H 22 110/60 95 Laboratory Results labs reviewed Hgb 7-8, baseline around 10 Bun slightly more elevated to 60, but has baseline ckdz Diagnostic Findings Prior colon from 2010 reviewed imaging reviewed
[2021-07-25] MEDS ORDERED: STAT IV STA (16:53)
[2021-07-25] MEDS ORDERED: ICU SEVERE HYPERGLYCEMIA PROTOCOL ONE (16:58)
--- NOTE | 2021-07-25 16:58 | Critical Care Consultation ---
Date of Consultation July 25, 2021 Assessment & Plan (1) Pulmonary embolism: (2) GI bleed: (3) Anemia: (4) Morbid obesity: (5) CKD (chronic kidney disease) stage 3, GFR 30-59 ml/min: (6) Cellulitis of left leg: Impression: 75-year-old female admitted with fall, incidentally found to have pulmonary embolism and bilateral lower extremity DVTs. She was on heparin and transferred to the ICU due to melanotic stools with a 3 g decrease in her hemoglobin. She is not tachycardic or hypertensive. Recommendations: 1. Acute PE: This appears to be the most pressing issue. She had risk factors including persistent lower extremity clot as well as elevated biomarkers in the form of troponin. We will check a BNP and follow-up troponin. Will check echocardiogram as well. I think at this point time the risk of acute PE warrants continuing anticoagulation despite the patient's GI bleeding issues. Check lactate 2. Acute GI bleed: GI notes reviewed. Ideally would like additional evaluation to guide risk of rebleeding. Will defer to them timing of endoscopy. At this point time will transfuse 1 unit of packed cells and continue to trend the patient's hemoglobin and hematocrit. She is not tachycardic or hypotensive currently. 3. Chronic kidney disease: Continue to follow BUN and creatinine. 4. Diabetes: Pharmacy consult for glycemic management. 5. Lower extremity cellulitis: Reviewed ID notes. Discontinue cefepime and replace with Ancef. Imaging is demonstrated no evidence of abscess or osteomyelitis. Will need long-term clinical follow-up and wound care management in the outpatient setting. 6. Hypertension: We will hold systemic antihypertensives for now given the acute PE and acute blood loss anemia to avoid precipitation of hypotension. 7. Hypoxemia: Continue supplemental oxygen titrated to keep saturations at or above 88%. Check chest x-ray should oxygenation worsen Above recommendations and plan were discussed with the ICU nurse as well as with the patient. Questions were answered to the best my ability. 50 minutes critical care time evaluating managing and stabilizing patient History of Present Illness Attending Physician: Ramana Singh MD History of Present Illness Asked by hospitalist to evaluate this patient with PE and probable GI bleed. History is obtained from discussion with hospitalist, reviewed electronic medical record, and interview the patient. The patient is a 75-year-old female who was admitted to the hospital several days ago after a fall. She was tachycardic and incidentally noted to have a PE. She was initiated on heparin. She developed melanotic stools today with softer blood pressure and had a decrease in her hemoglobin. GI was consulted. They recommended starting her on Protonix with no plans to perform endoscopy. Due to need for higher monitoring, the patient was transferred to the ICU. I assessed the patient on arrival. She is awake alert and conversant. She offers no complaints. She denies chest pain palpitations. Vascular surgery is also been consulted for potential IVC filter placement. They recommended continuing anticoagulation and following clinically. The patient does not report syncope or presyncope. There is no prior history of thromboembolic disease Allergies Allergy/AdvReac Type Severity Reaction Status Date / Time No Known Allergies Allergy Mild Verified 07/23/21 18:29 Home Medications Medication Instructions Recorded Confirmed Type aspirin 81 mg chewable tablet 81 mg PO DAILY 04/08/20 07/23/21 History atorvastatin 20 mg tablet (Lipitor) 20 mg PO DAILY 04/08/20 07/23/21 History ferrous sulfate 325 mg (65 mg 325 mg PO DAILY 04/08/20 07/23/21 History iron) tablet insulin glargine 100 unit/mL (3 50 unit SUBCUT QAM ml 04/08/20 07/23/21 History mL) subcutaneous pen (Lantus Solostar U-100 Insulin) lisinopril 5 mg tablet 5 mg PO DAILY 04/08/20 07/23/21 History cinnamon bark 500 mg capsule 500 mg PO DAILY 07/23/21 07/23/21 History (Cinnamon) insulin regular human 100 unit/mL 10 unit SUBCUT AC 07/23/21 07/23/21 History (3 mL) subcutaneous pen (Novolin R Flexpen) multivitamin 1 tab PO DAILY 07/23/21 07/23/21 History omega 3-vqw-hwh-fish oil 1,000 mg 1 cap PO BID 07/23/21 07/23/21 History (120 mg-180 mg) capsule (Fish Oil) potassium chloride 10 mEq 10 meq PO DAILY 07/23/21 07/23/21 History tablet,extended release Patient History Medical History Aortic valve stenosis CKD (chronic kidney disease) stage 3, GFR 30-59 ml/min Diabetes Diastolic CHF Dyslipidemia GERD (gastroesophageal reflux disease) HTN (hypertension) Morbid obesity with BMI of 50.0-59.9, adult Obstructive sleep apnea Paroxysmal A-fib Pulmonary HTN Vitamin D deficiency Surgical History S/P AVR Social History Smoking Status: Unknown if ever smoked Second Hand Exposure: No; Hx Alcohol Use: No Hx Substance Use: No Preferred Language: Maltese Communication Ability: Effective Senior Research Executive Required: No Beliefs That Will Affect Care: None marital status: Current Living Situation: Family Current Living Situation Comment: Lives at home with son Feels Safe at Home: Yes Safety Concerns: Feels Safe At This Time Assistive Devices: Oxygen - Continuous Assistive Devices Comment: Patient states she does use any of the above Review of Systems Review of Systems: All systems reviewed & are unremarkable except as noted in HPI & below Physical Exam Physical Exam: Lying in bed with moderate shortness of breath Constitutional: well developed, well nourished, + ill appearing and + morbidly obese Eyes: PERRL, conjunctivae normal, anicteric sclerae ENMT: external ear and nose normal, oropharynx normal Neck: trachea midline, no thyromegaly Respiratory: + respiratory distress Auscultation: + diminished lung sounds and + crackles (Minimal crackles at the bases); no wheezes Cardiovascular: Rate/Rhythm: regular rate, regular rhythm and + tachycardic Heart Sounds: normal S1, normal S2 and + murmur (2/6 ESM over precordium) Extremities: + edema (Bilateral 1-2+ leg edema with chronic skin changes and cellulitis) Gastrointestinal (Abdomen): Inspection/Auscultation: + abdomen distended and normal bowel sounds Percussion/Palpation: abdomen soft; abdomen nontender Musculoskeletal: No acute arthritis in any joint Neurologic: Alert and awake. Pleasantly confused-not sure about the baseline. Generally weak and lethargic Results & Data Results & Data ([facility]) Vital Signs (Past 12 Hours) Vital Signs Temp Pulse Resp BP Pulse Ox 07/25/21 11:46 93 H 107/67 07/25/21 11:27 37.1 C 96 H 21 117/58 L 97 07/25/21 07:30 36.8 C 87 20 96/48 L 99 Critical Care Results & Data Vital Signs (Past 12 Hours) Vital Signs Temp Pulse Resp BP Pulse Ox 07/25/21 11:46 93 H 107/67 07/25/21 11:27 37.1 C 96 H 21 117/58 L 97 07/25/21 07:30 36.8 C 87 20 96/48 L 99 Lab & Micro Results (Past 24 Hours) RBC 2.81 M/uL (4.2-5.4) L 07/25/21 WBC 12.06 K/uL (4.8-10.8) H 07/25/21 Hgb 7.8 g/dL (12.0-16.0) L 07/25/21 Hct 25.7 % (37-47) L 07/25/21 MCV 95.0 fL (80-100) 07/25/21 MCH 29.2 pg (25-34) 07/25/21 MCHC 30.7 g/dL (32-36) L 07/25/21 RDW Standard Deviation 52.7 fL (36.4-46.3) H 07/25/21 RDW Coefficient of Variation 15.3 % (11.5-14.5) H 07/25/21 Plt Count 225 K/uL (130-400) 07/25/21 MPV 10.2 fL (7.4-10.4) 07/25/21 Neutrophils (%) (Auto) 85.4 % 07/25/21 Lymphocytes (%) (Auto) 9.2 % 07/25/21 Monocytes # (Auto) 0.54 K/uL (0.11-0.59) 07/25/21 Eosinophils # (Auto) 0.07 K/uL (0-0.5) 07/25/21 Immature Granulocyte % (Auto) 0.1 % 07/25/21 Neutrophils # (Auto) 10.31 K/uL (1.4-6.5) H 07/25/21 Lymphocytes # (Auto) 1.11 K/uL (1.2-3.4) L 07/25/21 Monocytes # (Auto) 0.54 K/uL (0.11-0.59) 07/25/21 Eosinophils # (Auto) 0.07 K/uL (0-0.5) 07/25/21 Basophils # (Auto) 0.02 K/uL (0-0.2) 07/25/21 Immature Granulocyte # (Auto) 0.01 K/uL (0.00-0.02) 07/25/21 Na 137 mmol/L (136-145) 07/25/21 K 4.6 mmol/L (3.5-5.1) 07/25/21 Cl 103 mmol/L (98-107) 07/25/21 CO2 28 mmol/L (21-32) 07/25/21 Anion Gap 6 (3-11) 07/25/21 BUN 61 mg/dl (6-23) H 07/25/21 Creatinine 1.43 mg/dl (0.6-1.2) H 07/25/21 Estimated GFR ( Amer) 40.8 ml/min 07/25/21 Estimated GFR (Non-Af Amer) 35.2 ml/min 07/25/21 BUN/Creatinine Ratio 42.7 (10-20) H 07/25/21 Glu 267 mg/dl (70-99(Fasting)) H 07/25/21 Ca 7.7 mg/dl (8.5-10.1) L 07/25/21 Phosphorus Level 2.6 mg/dl (2.5-4.9) 07/25/21 Lactate Dehydrogenase 170 U/L (86-244) 07/25/21 Mg 1.7 mg/dl (1.7-2.4) 07/25/21 06:09 07/25/21 Calcium Level 7.7 mg/dl (8.5-10.1) L 07/25/21 06:09 07/25/21 Microbiology 07/24/21 05:25 Urine Culture - Preliminary Urine,Clean Catch No growth - Less than 1,000 colonies/mL, Final report to follow. 07/23/21 17:04 Aerobic Blood Culture - Preliminary Blood No growth in Aerobic bottle after 24 hours. Anaerobic Blood Culture - Final 07/23/21 17:03 Aerobic Blood Culture - Preliminary Blood No growth in Aerobic bottle after 24 hours. Anaerobic Blood Culture - Preliminary No growth in Anaerobic bottle after 24 hours. Diagnostic Findings (Past 24 Hours) Abdomen/Pelvis CT 07/25/21 08:02 CT chest diagnostic wo con, CT abd pelvis wo con CT DOSE: HISTORY: Right-sided chest pain. Pulmonary embolus. Right upper quadrant pain TECHNIQUE: Multiaxial CT images of the chest, abdomen, and pelvis were performed without contrast. A dose lowering technique was utilized adhering to the principles of ALARA. COMPARISON: Chest CTA 07/23/2021. Abdomen and pelvis CT 07/11/2016. FINDINGS: Chest CT: The main pulmonary artery remains dilated consistent with pulmonary arterial hypertension. The patient's known right-sided pulmonary emboli are not identified on this noncontrast study. The heart remains mildly enlarged. No pleural or pericardial effusions. No mediastinal or hilar lymphadenopathy. Normal esophagus. Old, healed left anterior rib fractures. There are poststernotomy changes. An aortic valve prosthesis is noted. Mitral anus calcifications are present. Respiratory motion artifact resulting in suboptimal evaluation of the lungs. No pneumothorax. A few scattered linear densities within the lungs favor subsegmental atelectasis. No new focal lung consolidations identified. Abdomen/pelvis CT: No pneumoperitoneum. No pneumatosis. No fractures within the visualized osseous structures. The bladder is decompressed by Bruno catheter. Small amount of gas within the bladder lumen is likely due to the catheterization. There are few prominent bilateral hilar lymph nodes with the largest on the right measuring 1.5 cm in short axis diameter. These have slightly increased in size in the interval. Suboptimal evaluation of the abdomen and pelvis due to artifact from the patient's abdomen abutting the gantry. Multiple small gallstones. No definite gallbladder wall thickening. The unenhanced liver, pancreas, spleen, and adrenal glands are unremarkable. No retroperitoneal lymphadenopathy. Normal caliber abdominal aorta. No renal or ureteral stones. No hydronephrosis. Stable lobular appearance to the left kidney. The uterus and bilateral adnexa are unremarkable. No pelvic free fluid. Suboptimal evaluation for bowel pathology due to the lack of intravenous and oral contrast. However, no definite bowel wall thickening or obstruction. Colonic diverticulosis. No evidence for acute diverticulitis. Fluid-filled nondilated colon. Small fat-containing lower midline abdominal hernia. IMPRESSION: 1. The patient's known right-sided pulmonary emboli are not identified this noncontrast study. 2. Stable cardiomegaly and pulmonary arterial hypertension. 3. No new focal lung consolidations to suggest pneumonia. 4. No bowel wall thickening or obstruction. 5. Colonic diverticulosis. No evidence for acute diverticulitis. 6. Fluid-filled colon. This is nonspecific but could represent a mild gastroenteritis. Centimeters stable lobular appearance to the left kidney. 7. Additional findings as described above. ACT 112: Negative or not required by law. Electronically signed by: Reinaldo Adams M.D. 07/25/2021 10:[address] 07/25/21 08:02 CT chest diagnostic wo con, CT abd pelvis wo con CT DOSE: HISTORY: Right-sided chest pain. Pulmonary embolus. Right upper quadrant pain TECHNIQUE: Multiaxial CT images of the chest, abdomen, and pelvis were performed without contrast. A dose lowering technique was utilized adhering to the principles of ALARA. COMPARISON: Chest CTA 07/23/2021. Abdomen and pelvis CT 07/11/2016. FINDINGS: Chest CT: The main pulmonary artery remains dilated consistent with pulmonary arterial hypertension. The patient's known right-sided pulmonary emboli are not identified on this noncontrast study. The heart remains mildly enlarged. No pleural or pericardial effusions. No mediastinal or hilar lymphadenopathy. Normal esophagus. Old, healed left anterior rib fractures. There are poststernotomy changes. An aortic valve prosthesis is noted. Mitral anus calcifications are present. Respiratory motion artifact resulting in suboptimal evaluation of the lungs. No pneumothorax. A few scattered linear densities within the lungs favor subsegmental atelectasis. No new focal lung consolidations identified. Abdomen/pelvis CT: No pneumoperitoneum. No pneumatosis. No fractures within the visualized osseous structures. The bladder is decompressed by Bruno catheter. Small amount of gas within the bladder lumen is likely due to the catheterization. There are few prominent bilateral hilar lymph nodes with the largest on the right measuring 1.5 cm in short axis diameter. These have slightly increased in size in the interval. Suboptimal evaluation of the abdomen and pelvis due to artifact from the patient's abdomen abutting the gantry. Multiple small gallstones. No definite gallbladder wall thickening. The unenhanced liver, pancreas, spleen, and adrenal glands are unremarkable. No retroperitoneal lymphadenopathy. Normal caliber abdominal aorta. No renal or ureteral stones. No hydronephrosis. Stable lobular appearance to the left kidney. The uterus and bilateral adnexa are unremarkable. No pelvic free fluid. Suboptimal evaluation for bowel pathology due to the lack of intravenous and oral contrast. However, no definite bowel wall thickening or obstruction. Colonic diverticulosis. No evidence for acute diverticulitis. Fluid-filled nondilated colon. Small fat-containing lower midline abdominal hernia. IMPRESSION: 1. The patient's known right-sided pulmonary emboli are not identified this noncontrast study. 2. Stable cardiomegaly and pulmonary arterial hypertension. 3. No new focal lung consolidations to suggest pneumonia. 4. No bowel wall thickening or obstruction. 5. Colonic diverticulosis. No evidence for acute diverticulitis. 6. Fluid-filled colon. This is nonspecific but could represent a mild gastroenteritis. Centimeters stable lobular appearance to the left kidney. 7. Additional findings as described above. ACT 112: Negative or not required by law. Electronically signed by: Reinaldo Adams M.D. 07/25/2021 10:[address] 07/25/21 08:[address] DOSE: 1045.57 mGy.cm HISTORY: Heel ulcers. Assess for osteomyelitis. TECHNIQUE: Multiaxial CT images of the right foot were performed and reformatted in the sagittal and coronal plane without the use of contrast. A dose lowering technique was utilized adhering to the principles of ALARA. COMPARISON: Right foot radiograph 07/24/2021. FINDINGS: No fracture or dislocation within the right foot. Large plantar and posterior calcaneal spurs are noted. No erosions or destructive changes to suggest an osteomyelitis. Moderate osteoarthritis within the foot. There is diffuse skin thickening and mild subcutaneous trace edema. This could be chronic or represent a cellulitis. There is mild thickening at the distal Achilles tendons adjacent suggestive of a tendinosis. Focal skin ulceration within the plantar aspect of the heel measuring approximately 11 mm. No loculated fluid collections to suggest an abscess. Skin thickening and edema at the heel suggesting a cellulitis. Mild vascular calcifications are noted. No joint effusions identified. IMPRESSION: 1. An 11 mm skin ulceration at the plantar aspect of the heel. No underlying bony destruction to suggest an osteomyelitis. 2. Skin thickening and subcutaneous edema within the foot most pronounced at the heel. This may represent a cellulitis. 3. No loculated fluid collections to suggest an abscess. 4. Additional chronic findings as described above ACT 112: Negative or not required by law. Electronically signed by: Reinaldo Adams M.D. 07/25/2021 10:02 AM I & O Totals 24 Hours 07/24/21 07/25/21 07/26/21 06:59 06:59 07:59 Intake Total 2101.533 / 2101.533 834.75 / 834.75 1060.433 / 1060.433 Output Total 876 / 876 954 / 954 Balance 2100.533 / 2100.533 -41.25 / -41.25 106.433 / 106.433 Cumulative 07/23/21 13:02 thru 07/25/21 14:28 Intake Total 3996.716 Output Total 1831 Balance 2165.716 RT Ventilator Mngmt (Last Documented) Ventilator Ordered Settings Respiratory Rate 21 07/25/21 11:27 Ventilator - PT Measurements Respiratory Rate 21 Coding Level of Care Code Critical Care 1st 30-74 mins Diagnoses Pulmonary embolism I26.99 GI bleed K92.2 Anemia D64.9 Morbid obesity E66.01 CKD (chronic kidney disease) stage 3, GFR 30-59 ml/min N18.30 Cellulitis of left leg L03.116
[2021-07-25] MEDS ORDERED: CALCIUM GLUCONATE 10% 2,000 MG in DEXTROSE 5% 50 ML IV ONE (17:00)
[2021-07-25 17:16] LABS: Hematocrit (blood only) 23.4 % (37-47); Hemoglobin 7.3 g/dL (12.0-16.0)
[2021-07-25] MEDS ORDERED: SEVERE STRESS LEVEL ONE (17:25)
[2021-07-25] MEDS ORDERED: INSULIN PROTOCOL GOAL RANGE ONE (17:25)
[2021-07-25] MEDS ORDERED: STAT IV Infusion **Titration per Protocol STA (17:25)
[2021-07-25] MEDS: PANTOprazole 40 MG in DEXTROSE 5% 100 ML IV SCH ×2 (17:29→22:02)
[2021-07-25] MEDS ORDERED: INSULIN REGULAR 250 UNITS in SODIUM CHLORIDE 0.9% 247.5 ML IV SCH (17:30)
[2021-07-25] MEDS ORDERED: PHARMACY GLYCEMIC MGMT CONSULT PRN (17:38)
[2021-07-25] MEDS: ceFAZolin 2000MG 2,000 MG/15 ML SYR IV SCH (17:41)
[2021-07-25 18:05] LABS: Partial Thromboplastin Ratio 0.9
[2021-07-25] MEDS ORDERED: PANTOprazole 40 MG in SYRINGE 0 ML IV SCH (21:00)
[2021-07-25 21:13] LABS: Hematocrit (blood only) 25.4 % (37-47)
[2021-07-26 00:30] LABS: Partial Thromboplastin Ratio 1.4; Partial Thromboplastin Time 39.4 Seconds (21.0-31.0)
[2021-07-26 03:11] LABS: Hematocrit (blood only) 25.7 % (37-47); Hemoglobin 8.1 g/dL (12.0-16.0); Mean Corpuscular Hemoglobin 29.3 pg (25-34); Mean Corpuscular Hgb Conc 31.5 g/dL (32-36); Mean Corpuscular Volume 93.1 fL (80-100); Mean Platelet Volume 9.7 fL (7.4-10.4); Nucleated RBC # (auto) 0.02 K/uL (0-0); Nucleated RBC % (auto) 0.2 %; Platelet Count 212 K/uL (130-400); RDW Coefficient of Variation 15.4 % (11.5-14.5); RDW Standard Deviation 52.3 fL (36.4-46.3); Red Blood Count 2.76 M/uL (4.2-5.4); White Blood Count 9.77 K/uL (4.8-10.8)
[2021-07-26 03:35] LABS: BUN Creatinine Ratio 40.5 (10-20); Calcium 8.8 mg/dl (8.5-10.1); Creatinine Clr Calc Pharmacy 49.5 ml/min; Est GFR (African American) 47.6 ml/min; Est GFR (Non-African American) 41.1 ml/min; Magnesium 1.7 mg/dl (1.7-2.4); Phosphorus 2.5 mg/dl (2.5-4.9); Potassium 4.3 mmol/L (3.5-5.1)
[2021-07-26] MEDS: PANTOprazole 40 MG in DEXTROSE 5% 100 ML IV SCH ×5 (04:17→20:45)
[2021-07-26] MEDS: ceFAZolin 2000MG 2,000 MG/15 ML SYR IV SCH ×2 (05:43→17:15)
[2021-07-26 07:27] LABS: Hematocrit (blood only) 25.3 % (37-47); Hemoglobin 8.2 g/dL (12.0-16.0)
[2021-07-26 07:36] LABS: Partial Thromboplastin Ratio 1.5; Partial Thromboplastin Time 40.5 Seconds (21.0-31.0)
[2021-07-26] MEDS: MAGNESIUM SULFATE / D5W 1 GM/100 ML BAG IV SCH ×2 (07:47→10:43)
[2021-07-26] MEDS: INSULIN ASPART PER UNIT SC SCH ×5 (07:48→23:48)
[2021-07-26] MEDS: AMMONIUM LACTATE 12% LOTION 225 GM BTL EXT SCH ×2 (07:48→20:28)
[2021-07-26] MEDS: OMEGA-3 (PURIFIED FISH OIL) 1 GM CAP PO SCH ×2 (07:49→20:33)
[2021-07-26] MEDS: POTASSIUM CHLORIDE 10 MEQ TABCR PO SCH (07:50)
[2021-07-26] MEDS: ATORVASTATIN 20 MG TAB PO SCH (07:50)
[2021-07-26] MEDS: MAGNESIUM CHLORIDE 64MG DELAYED REL TAB PO SCH (07:50)
[2021-07-26] MEDS: MICONAZOLE NITRATE POWDER 43 GM EXT SCH ×2 (07:51→20:23)
[2021-07-26] MEDS ORDERED: INSULIN GLARGINE SOLOSTAR 100 UNITS/ML 3 ML PEN SC ONE (08:15)
--- NOTE | 2021-07-26 08:17 | Pharmacy Report ---
Pharmacy Glycemic Short Note 2 - Date of Service July 26, 2021 - Glycemic Short BSG Results (Last 24 hours): 07/25/21 07/25/21 07/25/21 06:09 07:30 11:30 Glucose 267 H POC Glucose 267 H 374 H* 07/25/21 07/25/21 07/25/21 11:31 16:24 19:03 Glucose POC Glucose 348 H* 244 H 185 H 07/25/21 07/25/21 07/25/21 20:04 21:02 22:05 Glucose POC Glucose 162 H 140 H 118 H 07/25/21 07/26/21 07/26/21 23:04 00:04 00:20 Glucose POC Glucose 114 H 84 87 07/26/21 07/26/21 07/26/21 01:03 01:59 03:02 Glucose 96 POC Glucose 97 103 H 07/26/21 07/26/21 07/26/21 05:08 06:21 07:14 Glucose POC Glucose 129 H 135 H 125 H OUTPATIENT ANTIDIABETIC REGIMEN: * Novolog 10 units AC * Lantus 50 units daily ASSESSMENT: * 75 year old female admitted for fall, found to have PE treated with IV heparin, now with GIB, moved to ICU yesterday, pharmacy consulted for glycemic management. * Patient hyperglycemic since admission on Lantus 50 units HS + NovoLog CF/CR 04/05 * Patient started on IV insulin infusion yesterday evening, drip rate started at 5units/hr, down to 1.9units/hr over past 3 hours, no basal insulin ordered yesterday while on insulin drip * Patient euglycemic and ready to transition back to SQ insulin * Patient currently NPO, will begin with slightly reduced Lantus dose, then add HS PRN dose tonight PLAN FOR INPATIENT GLYCEMIC CONTROL: * Basal insulin * Lantus 40 units SQ x 1 dose now, overlap w/ insulin drip x 4 hours * Lantus HS tonight, 0 units for BSG < 180mg/dl, 20 units BSG 180mg/dl or greater * IV insulin infusion, 1.9units/hr, goal range 120-180mg/dl, continue until 1200 or turn off sooner if drip shuts off per protocol * Bolus insulin * NovoLog per scale Q4H starting at 1200 * Goal Range: Low 110 mg/dL - High 140 mg/dL * Correction Factor: 15 mg/dL/unit * Nutritional / Prandial insulin per carb ratio of 1 unit per 5 grams CHO consumed
--- NOTE | 2021-07-26 08:25 | Critical Care Progress Note ---
Date of Service July 26, 2021 Assessment & Plan (1) Pulmonary embolism: (2) GI bleed: (3) Anemia: (4) Morbid obesity: (5) CKD (chronic kidney disease) stage 3, GFR 30-59 ml/min: (6) Cellulitis of left leg: Plan: Impression: 75-year-old female admitted with fall, incidentally found to have pulmonary embolism and bilateral lower extremity DVTs. She was on heparin and transferred to the ICU 07/25 due to melanotic stools and a decrease in hemoglobin levels. She is not tachycardic or hypertensive. 24-hour events: The patient received 1 unit of packed cells. She is remained hemodynamically stable. She is not had additional bowel movements. Recommendations: 1. Acute PE: Would continue anticoagulation with heparin. Given the unprovoked event, would recommend cancer screening, specifically colonoscopy given the patient's melanotic stools. Could make a case for lifelong anticoagulation although the patient's frequent falls and mobility issues make this more risky. Outpatient hematology consultation might be appropriate. 2. Acute GI bleed: GI notes reviewed. Plan for endoscopy in the a.m.. Continue serial hemoglobin and hematocrit and would transfuse as needed 3. Chronic kidney disease: Improved today 4. Diabetes: Discussed with pharmacy. Will discontinue insulin infusion and transition to subcutaneous regimen. 5. Lower extremity cellulitis: Reviewed ID notes. Ancef per ID. Imaging is demonstrated no evidence of abscess or osteomyelitis. Will need long-term clinical follow-up and wound care management in the outpatient setting. 6. Hypertension: We will hold systemic antihypertensives for now given the acute PE and acute blood loss anemia to avoid precipitation of hypotension. 7. Hypoxemia: Continue supplemental oxygen titrated to keep saturations at or above 88%. Discussed with patient and bedside critical care nurse as well as admitting hospitalist. She appears stable at this point time and I think she can be transferred out of the ICU on telemetry. Would continue serial hemoglobin and hematocrit and transfuse as needed. Should the patient develop hemodynamic instability, would be happy to see her back in the ICU. Critical care will sign off at this point time. Feel free to contact us with questions Admission and Anticipated Discharge Date Admission Date: July 23, 2021 Subjective Patient seen and examined. She is without complaints this morning. She specifically denies any nausea or vomiting. She has not had any additional bowel movements. No abdominal pain. She denies syncope or presyncope. No shortness of breath or chest pain. She is tolerating anticoagulation well. Review of Systems Review of Systems: All systems reviewed & are unremarkable except as noted in Subjective Physical Exam Physical Exam: Lying in bed with moderate shortness of breath Constitutional: well developed, well nourished and + morbidly obese; not ill appearing Eyes: PERRL, conjunctivae normal, anicteric sclerae ENMT: external ear and nose normal, oropharynx normal Neck: trachea midline, no thyromegaly Respiratory: no respiratory distress, no labored breathing and not tachypneic Auscultation: + diminished lung sounds and + crackles (Minimal crackles at the bases); no wheezes Cardiovascular: Rate/Rhythm: regular rate, regular rhythm and + tachycardic Heart Sounds: normal S1, normal S2 and + murmur (2/6 ESM over precordium) Extremities: + edema (Bilateral 1-2+ leg edema with chronic skin changes and cellulitis) Gastrointestinal (Abdomen): Inspection/Auscultation: + abdomen distended and normal bowel sounds Percussion/Palpation: abdomen soft; abdomen nontender Neurologic: Alert and awake. Pleasantly confused Results & Data Results & Data ([facility]) Vital Signs (Past 12 Hours) Vital Signs Temp Pulse Resp BP Pulse Ox 07/26/21 05:00 85 24 127/75 95 07/26/21 04:00 37.1 C 87 27 H 130/56 L 97 07/26/21 03:03 87 26 H 120/63 96 07/26/21 01:00 87 24 126/54 L 97 07/26/21 00:00 81 32 H 110/51 L 99 07/25/21 23:01 80 25 H 106/53 L 98 07/25/21 22:01 82 26 H 127/64 99 07/25/21 21:00 86 25 H 117/59 L 99 07/25/21 20:30 86 25 H 93 07/25/21 20:00 37.1 C 92 H 25 H 112/63 98 07/25/21 19:54 37.1 C 83 21 126/62 97 07/25/21 19:50 87 24 126/62 97 07/25/21 19:46 83 37 H 121/50 L 98 07/25/21 19:41 89 24 119/56 L 98 03/12/22 19:35 84 29 H 132/80 97 07/25/21 19:30 85 25 H 131/69 99 07/25/21 19:25 85 37 H 130/52 L 99 07/25/21 19:21 85 27 H 116/65 99 Critical Care Results & Data Vital Signs (Past 12 Hours) Vital Signs Temp Pulse Resp BP Pulse Ox 07/26/21 05:00 85 24 127/75 95 07/26/21 04:00 37.1 C 87 27 H 130/56 L 97 07/26/21 03:03 87 26 H 120/63 96 07/26/21 01:00 87 24 126/54 L 97 07/26/21 00:00 81 32 H 110/51 L 99 07/25/21 23:01 80 25 H 106/53 L 98 07/25/21 22:01 82 26 H 127/64 99 07/25/21 21:00 86 25 H 117/59 L 99 07/25/21 20:30 86 25 H 93 07/25/21 20:00 37.1 C 92 H 25 H 112/63 98 07/25/21 19:54 37.1 C 83 21 126/62 97 07/25/21 19:50 87 24 126/62 97 07/25/21 19:46 83 37 H 121/50 L 98 07/25/21 19:41 89 24 119/56 L 98 07/25/21 19:35 84 29 H 132/80 97 07/25/21 19:30 85 25 H 131/69 99 07/25/21 19:25 85 37 H 130/52 L 99 07/25/21 19:21 85 27 H 116/65 99 Lab & Micro Results (Past 24 Hours) RBC 2.76 M/uL (4.2-5.4) L 07/26/21 WBC 9.77 K/uL (4.8-10.8) 07/26/21 Hgb 8.2 g/dL (12.0-16.0) L 07/26/21 Hct 25.3 % (37-47) L 07/26/21 MCV 93.1 fL (80-100) 07/26/21 MCH 29.3 pg (25-34) 07/26/21 MCHC 31.5 g/dL (32-36) L 07/26/21 RDW Standard Deviation 52.3 fL (36.4-46.3) H 07/26/21 RDW Coefficient of Variation 15.4 % (11.5-14.5) H 07/26/21 Plt Count 212 K/uL (130-400) 07/26/21 MPV 9.7 fL (7.4-10.4) 07/26/21 Nucleated Red Blood Cells % (auto) 0.2 % 07/26/21 Nucleated RBC Absolute Count (auto) 0.02 K/uL (0-0) H 07/26/21 Na 142 mmol/L (136-145) 07/26/21 K 4.3 mmol/L (3.5-5.1) 07/26/21 Cl 108 mmol/L (98-107) H 07/26/21 CO2 29 mmol/L (21-32) 07/26/21 Anion Gap 5 (3-11) 07/26/21 BUN 51 mg/dl (6-23) H 07/26/21 Creatinine 1.26 mg/dl (0.6-1.2) H 07/26/21 Estimated GFR ( Amer) 47.6 ml/min 07/26/21 Estimated GFR (Non-Af Amer) 41.1 ml/min 07/26/21 BUN/Creatinine Ratio 40.5 (10-20) H 07/26/21 Glu 96 mg/dl (70-99(Fasting)) 07/26/21 Ca 8.8 mg/dl (8.5-10.1) 07/26/21 Phosphorus Level 2.5 mg/dl (2.5-4.9) 07/26/21 Lactate Dehydrogenase 170 U/L (86-244) 07/25/21 Mg 1.7 mg/dl (1.7-2.4) 07/26/21 01:59 07/26/21 Calcium Level 8.8 mg/dl (8.5-10.1) 07/26/21 01:59 07/26/21 Microbiology 07/24/21 05:25 Urine Culture - Final Urine,Clean Catch No growth - less than 1,000 colonies/mL. 07/23/21 17:04 Aerobic Blood Culture - Preliminary Blood No growth in Aerobic bottle after 48 hours. Anaerobic Blood Culture - Final 07/23/21 17:03 Aerobic Blood Culture - Preliminary Blood No growth in Aerobic bottle after 48 hours. Anaerobic Blood Culture - Preliminary No growth in Anaerobic bottle after 48 hours. Diagnostic Findings (Past 24 Hours) Abdomen/Pelvis CT 07/25/21 08:02 CT chest diagnostic wo con, CT abd pelvis wo con CT DOSE: HISTORY: Right-sided chest pain. Pulmonary embolus. Right upper quadrant pain TECHNIQUE: Multiaxial CT images of the chest, abdomen, and pelvis were performed without contrast. A dose lowering technique was utilized adhering to the principles of ALARA. COMPARISON: Chest CTA 07/23/2021. Abdomen and pelvis CT 07/11/2016. FINDINGS: Chest CT: The main pulmonary artery remains dilated consistent with pulmonary arterial hypertension. The patient's known right-sided pulmonary emboli are not identified on this noncontrast study. The heart remains mildly enlarged. No pleural or pericardial effusions. No mediastinal or hilar lymphadenopathy. Normal esophagus. Old, healed left anterior rib fractures. There are poststernotomy changes. An aortic valve prosthesis is noted. Mitral anus calcifications are present. Respiratory motion artifact resulting in suboptimal evaluation of the lungs. No pneumothorax. A few scattered linear densities within the lungs favor subsegmental atelectasis. No new focal lung consolidations identified. Abdomen/pelvis CT: No pneumoperitoneum. No pneumatosis. No fractures within the visualized osseous structures. The bladder is decompressed by Bruon catheter. Small amount of gas within the bladder lumen is likely due to the catheterization. There are few prominent bilateral hilar lymph nodes with the largest on the right measuring 1.5 cm in short axis diameter. These have slightly increased in size in the interval. Suboptimal evaluation of the abdomen and pelvis due to artifact from the patient's abdomen abutting the gantry. Multiple small gallstones. No definite gallbladder wall thickening. The unenhanced liver, pancreas, spleen, and adrenal glands are unremarkable. No retroperitoneal lymphadenopathy. Normal caliber abdominal aorta. No renal or ureteral stones. No hydronephrosis. Stable lobular appearance to the left kidney. The uterus and bilateral adnexa are unremarkable. No pelvic free fluid. Suboptimal evaluation for bowel pathology due to the lack of intravenous and oral contrast. However, no definite bowel wall thickening or obstruction. Colonic diverticulosis. No evidence for acute diverticulitis. Fluid-filled nondilated colon. Small fat-containing lower midline abdominal hernia. IMPRESSION: 1. The patient's known right-sided pulmonary emboli are not identified this noncontrast study. 2. Stable cardiomegaly and pulmonary arterial hypertension. 3. No new focal lung consolidations to suggest pneumonia. 4. No bowel wall thickening or obstruction. 5. Colonic diverticulosis. No evidence for acute diverticulitis. 6. Fluid-filled colon. This is nonspecific but could represent a mild gastroenteritis. Centimeters stable lobular appearance to the left kidney. 7. Additional findings as described above. ACT 112: Negative or not required by law. Electronically signed by: Reinaldo Adams M.D. 07/25/2021 10:[address] 07/25/21 08:02 CT chest diagnostic wo con, CT abd pelvis wo con CT DOSE: HISTORY: Right-sided chest pain. Pulmonary embolus. Right upper quadrant pain TECHNIQUE: Multiaxial CT images of the chest, abdomen, and pelvis were performed without contrast. A dose lowering technique was utilized adhering to the principles of ALARA. COMPARISON: Chest CTA 07/23/2021. Abdomen and pelvis CT 07/11/2016. FINDINGS: Chest CT: The main pulmonary artery remains dilated consistent with pulmonary arterial hypertension. The patient's known right-sided pulmonary emboli are not identified on this noncontrast study. The heart remains mildly enlarged. No pleural or pericardial effusions. No mediastinal or hilar lymphadenopathy. Normal esophagus. Old, healed left anterior rib fractures. There are post sternotomy changes. An aortic valve prosthesis is noted. Mitral anus calcifications are present. Respiratory motion artifact resulting in suboptimal evaluation of the lungs. No pneumothorax. A few scattered linear densities within the lungs favor subsegmental atelectasis. No new focal lung consolidations identified. Abdomen/pelvis CT: No pneumoperitoneum. No pneumatosis. No fractures within the visualized osseous structures. The bladder is decompressed by Bruno catheter. Small amount of gas within the bladder lumen is likely due to the catheterization. There are few prominent bilateral hilar lymph nodes with the largest on the right measuring 1.5 cm in short axis diameter. These have slightly increased in size in the interval. Suboptimal evaluation of the abdomen and pelvis due to artifact from the patient's abdomen abutting the gantry. Multiple small gallstones. No definite gallbladder wall thickening. The unenhanced liver, pancreas, spleen, and adrenal glands are unremarkable. No retroperitoneal lymphadenopathy. Normal caliber abdominal aorta. No renal or ureteral stones. No hydronephrosis. Stable lobular appearance to the left kidney. The uterus and bilateral adnexa are unremarkable. No pelvic free fluid. Suboptimal evaluation for bowel pathology due to the lack of intravenous and oral contrast. However, no definite bowel wall thickening or obstruction. Colonic diverticulosis. No evidence for acute diverticulitis. Fluid-filled nondilated colon. Small fat-containing lower midline abdominal hernia. IMPRESSION: 1. The patient's known right-sided pulmonary emboli are not identified this noncontrast study. 2. Stable cardiomegaly and pulmonary arterial hypertension. 3. No new focal lung consolidations to suggest pneumonia. 4. No bowel wall thickening or obstruction. 5. Colonic diverticulosis. No evidence for acute diverticulitis. 6. Fluid-filled colon. This is nonspecific but could represent a mild gastroenteritis. Centimeters stable lobular appearance to the left kidney. 7. Additional findings as described above. ACT 112: Negative or not required by law. Electronically signed by: Reinaldo Adams M.D. 07/25/2021 10:[address] 07/25/21 08:[address] DOSE: 1045.57 mGy.cm HISTORY: Heel ulcers. Assess for osteomyelitis. TECHNIQUE: Multiaxial CT images of the right foot were performed and reformatted in the sagittal and coronal plane without the use of contrast. A dose lowering technique was utilized adhering to the principles of ALARA. COMPARISON: Right foot radiograph 07/24/2021. FINDINGS: No fracture or dislocation within the right foot. Large plantar and posterior calcaneal spurs are noted. No erosions or destructive changes to suggest an osteomyelitis. Moderate osteoarthritis within the foot. There is diffuse skin thickening and mild subcutaneous trace edema. This could be chronic or represent a cellulitis. There is mild thickening at the distal Achilles tendons adjacent suggestive of a tendinosis. Focal skin ulceration within the plantar aspect of the heel measuring approximately 11 mm. No loculated fluid collections to suggest an abscess. Skin thickening and edema at the heel suggesting a cellulitis. Mild vascular calcifications are noted. No joint effusions identified. IMPRESSION: 1. An 11 mm skin ulceration at the plantar aspect of the heel. No underlying bony destruction to suggest an osteomyelitis. 2. Skin thickening and subcutaneous edema within the foot most pronounced at the heel. This may represent a cellulitis. 3. No loculated fluid collections to suggest an abscess. 4. Additional chronic findings as described above ACT 112: Negative or not required by law. Electronically signed by: Reinaldo Adams M.D. 07/25/2021 10:02 AM I & O Totals 24 Hours 07/25/21 07/26/21 07/27/21 05:59 06:59 06:59 Intake Total 88.333 / 88.333 Output Total Balance 88.333 / 88.333 Cumulative 07/23/21 13:02 thru 07/26/21 07:47 Intake Total 4939.700 Output Total 3231 Balance 1708.700 RT Ventilator Mngmt (Last Documented) Ventilator Ordered Settings Respiratory Rate 24 07/26/21 05:00 Ventilator - PT Measurements Respiratory Rate 24 Coding Level of Care Code 32243 Subseq Hosp Care Lvl 3 Diagnoses Pulmonary embolism I26.99 GI bleed K92.2 Anemia D64.9 Morbid obesity E66.01 CKD (chronic kidney disease) stage 3, GFR 30-59 ml/min N18.30 Cellulitis of left leg L03.116
--- NOTE | 2021-07-26 11:50 | XCELERA ---
[id number]
--- NOTE | 2021-07-26 12:43 | Gastroenterology Progress Note ---
Date of Service July 26, 2021 Assessment & Plan Admission and Anticipated Discharge Date Admission Date: July 23, 2021 Supervising Physician Co-Signing Physician Notes Consider heparin gtt during the day today, stop at midnitie NPO after midnite EGD to rule out pudz tomorrow pending anesthesia clearance. Initially flex sig was planned but will cancel that given her her pe. Subjective No acute events overnite Remained in the icu - on nasal cannula No reports of hematemesis or hematochezia to me Her hgb has actually increased after 1 unit yesterday Review of Systems Review of Systems: All systems reviewed & are unremarkable except as noted in HPI & below Physical Exam Physical Exam: Obese fm with nc on in nad Eyes: PERRL, conjunctivae normal, anicteric sclerae Respiratory: Slightly bigger gasps today when speaking to me but otherwise normal respirations, no audible wheezing noted Gastrointestinal (Abdomen): Obese soft Neurologic: Alert and oriented Results & Data ([facility]) Vital Signs (Past 12 Hours) Vital Signs Temp Pulse Resp BP Pulse Ox 07/26/21 05:00 85 24 127/75 95 07/26/21 04:00 37.1 C 87 27 H 130/56 L 97 07/26/21 03:03 87 26 H 120/63 96 07/26/21 01:00 87 24 126/54 L 97 07/26/21 00:00 81 32 H 110/51 L 99 Laboratory Results Hgb monica from 7 range to 8 range Bun stable BS stable
--- NOTE | 2021-07-26 13:16 | XRay Report ---
XR chest 1V portable HISTORY: 75 years-old Female ?congestion acute cough with congestion COMPARISON: Chest CT 07/25/2021 TECHNIQUE: Portable AP view of the chest FINDINGS: Cardiac silhouette is enlarged. Prior median sternotomy. Pulmonary vascular congestion. Calcified melissa que of the thoracic aorta. No pneumothorax, large pleural effusion or overt pulmonary edema. Mild sonia nting of the costophrenic angles. Subsegmental bibasilar opacities. Degenerative changes of the shoul ders and spine. IMPRESSION: 1. Cardiomegaly with pulmonary vascular congestion. 2. Mild bibasilar opacities suggest atelectasis. ACT 112: Negative or not required by law. The above report was generated using voice recognition software. It may contain grammatical, syntax o r spelling errors. Electronically signed by: Roc Corral M.D. 07/26/2021 1:15 PM
[2021-07-26 13:55] LABS: Hematocrit (blood only) 25.8 % (37-47); Hemoglobin 8.1 g/dL (12.0-16.0)
[2021-07-26 14:09] LABS: Partial Thromboplastin Ratio 1.6
[2021-07-26] MEDS ORDERED: FUROSEMIDE INJ 20 MG/2 ML VIAL IV ONE (15:21)
--- NOTE | 2021-07-26 15:28 | Hospitalist Progress Note ---
Date of Service July 26, 2021 Assessment & Plan (1) Sepsis: (2) Pulmonary embolism: Plan: 74 years old and morbidly obese female w/ PMH of KENAN, paroxysmal atrial fibrillation, type 2 diabetes on insulin, hypertension, diastolic CHF, hyperlipidemia, GERD, pulmonary hypertension, apparently was brought into the ER 07/23 by the EMS following a fall at home. She lives with her son who found her in between bed and dresser after coming back from work. She is being managed for the following: #. GI bleed 07/25, likely upper #. Acute blood loss anemia: 06/17 above Patient reports having no GI doctor as an outpatient, denies any colonoscopy in the past Patient also denies any gastritis/indigestion/reflux symptoms in the past. Patient has been on heparin drip for dvt and PE since 2 days as of 07/25 On 07/25 AM, patient had an episode of large elise colored liquid stool in the morning. FOBT came back positive. She had another episode during the day in 07/25. No further BM. s/p 1 unit, Hb stable over 8 so far. HnH Q6H, c/w heparin drip for now, hold drip at midnight today. For scope tomorrow. Tap water enema x2 tonight and at 4 am tomorrow. c/w PPI drip. d/w GI #. Pulmonary edema - likely iatrogenic Patient oxygen at home 3 L per patient Patient currently on 3 L but seems to have labored breathing today Patient has got multiple fluids and blood transfusion. Repeat CXR reveals increasing vascular congestion in the lungs. 07/26/21 echo [due to PE]: Ejection fraction 60 to 65% with normal left ventricular structure and function. Moderate concentric LVH. Will give a small dose of IV Lasix, closely monitor blood pressure, will use midodrine if needed. #. Cellulitis RLE #. Sepsis POA: At presentation, tachycardic and with elevated WBC on the background of RLE cellulitis. Febrile but temperature below 38 degree C Patient has history of BLE cellulitis. On exam, chronic BLE skin changes/edematous, mostly non pitting. --> Lac hydrin lotion. Patient does have right heel superficial ulcer with surrounding erythema and tenderness, likely source of RLE cellulitis --> improving redness and tenderness 07/25 CT Rt foot:11mm skin ulceration w/ cellulitis, no evidence of OM/abscess Admitting blood culture- [id number]. Admitting pro-Efraín 13.45 Wound care nurse on board, appreciate recommendation. Temperature getting better, WBC coming down ID evaluated: Cefepime 07/24 --> cefazolin 07/25. F/u final cultures. Pt will need OP wound care f/u. #. Bilateral DVT #. Pulmonary embolism: likely secondary to above Patient has shortness of breath on presentation with tachycardia. Admitting bilateral venous Doppler: Positive for nonocclusive DVT Admitting CTA chest: Positive for right sided PE, no evidence of right heart strain noted. Heparin drip (see above); oral NOAC vs coumadin at time of DC. Agreeable to send Eliquis to pharmacy for cost assessment. Will need to be in touch with PCP for anticoagulation work-up and further discussion on anticoagulation treatment. Likely will need outpatient hematology. #. Presumed UTI UA suggestive, urine culture pending Patient denies any pain or burning while passing urine. Patient is on antibiotic for RLE cellulitis. #. CIERA over CKD stage III Baseline creatinine around 0.8-1 Admitting creatinine of 1.92, improving Monitor BMP daily and as appropriate. #. Generalized weakness #. Fall Came in with fall with no obvious injury Remains generally weak and lethargic Uses 3 L oxygen at home Admitting CT head, C-spine CT, CXR reviewed. #. Other chronic medical conditions: Paroxysmal A. fib, diastolic CHF, COPD, DM on insulin therapy Continue with/resume home medications as and when appropriate. DVT prophylaxis: heparin held re-gi bleed. CODE STATUS: Pt doesn't seem to have living will, confirmed code status with the patient, she is full code. Admission and Anticipated Discharge Date Admission Date: July 23, 2021 Subjective Patient seen and examined at bedside as a follow-up of bilateral DVT and pulmonary embolism, RLE cellulitis, CIERA/CKD stage III. Patient was lying in bed, on 3 L nasal cannula oxygen, NAD, no new acute events overnight. Patient denies any further bowel movement after yesterday's bloody bowel movement. Patient denies any headache/dizziness/belly pain/chest pain/palpitation/other review of symptoms. Patient does seem to have some labored breathing. Patient remains n.p.o., on IV PPI drip. Physical Exam Physical Exam: GENERAL: Alert and oriented x3. NAD, on 3L NC O2, Morbidly obese. HEENT: No pallor, no icterus. Pupils equal, round and reactive to light. Oral mucosa moist. NECK: No JVD, no neck masses. HEART: S1 and S2 heard. Regular rate and rhythm. No murmur, no gallop. RESPIRATORY SYSTEM: Normal AP diameter. No accessory muscle use. No wheezing, b/b crackles crackles. ABDOMEN: Soft, bowel sounds present, nontender, no distention. CENTRAL NERVOUS SYSTEM: No facial droop. Speech is clear. Obeys simple commands. Moves extremities. EXTREMITIES: BLE edematous, mostly non pitting. BLE chronic skin changes w/ warmth and erythema to RLE, jorge luis leg and heel. Rt heel with superficial ulcer w/ surrounding erythema, and tenderness. Results & Data Results & Data ([facility]) Vital Signs (Past 12 Hours) Vital Signs Temp Pulse Pulse Resp BP BP Pulse Ox 07/26/21 14:17 36.9 C 77 28 H 107/49 L 99 07/26/21 13:01 78 24 115/54 L 93 07/26/21 12:00 77 28 H 118/55 L 97 07/26/21 11:00 84 27 H 97 07/26/21 10:00 97 H 20 133/69 96 07/26/21 09:00 89 28 H 97 07/26/21 08:00 80 29 H 97 07/26/21 07:01 88 16 105/87 87 L 07/26/21 05:00 85 24 127/75 95 07/26/21 04:00 37.1 C 87 27 H 130/56 L 97
[2021-07-26] MEDS ORDERED: Nursing to Pharmacy Communication SCH (15:30)
[2021-07-26] MEDS: HEPARIN SODIUM/DEXTROSE 25,000 UNITS/500 ML BAG IV SCH (15:38)
[2021-07-26] MEDS ORDERED: INSULIN GLARGINE SOLOSTAR 100 UNITS/ML 3 ML PEN SC SCH (21:00)
[2021-07-26 21:06] LABS: Hematocrit (blood only) 25.1 % (37-47); Hemoglobin 7.8 g/dL (12.0-16.0)
[2021-07-26 21:26] LABS: Partial Thromboplastin Ratio 1.4; Partial Thromboplastin Time 38.6 Seconds (21.0-31.0)
[2021-07-27] MEDS: PANTOprazole 40 MG in DEXTROSE 5% 100 ML IV SCH ×5 (02:09→21:26)
[2021-07-27 03:15] LABS: Hematocrit (blood only) 24.6 % (37-47); Hemoglobin 7.7 g/dL (12.0-16.0); Mean Corpuscular Hemoglobin 29.3 pg (25-34); Mean Corpuscular Hgb Conc 31.3 g/dL (32-36); Mean Corpuscular Volume 93.5 fL (80-100); Mean Platelet Volume 9.4 fL (7.4-10.4); Platelet Count 237 K/uL (130-400); RDW Coefficient of Variation 15.3 % (11.5-14.5); RDW Standard Deviation 52.2 fL (36.4-46.3); Red Blood Count 2.63 M/uL (4.2-5.4); White Blood Count 9.98 K/uL (4.8-10.8)
[2021-07-27 03:34] LABS: Creatinine Clr Calc Pharmacy 55.2 ml/min; Est GFR (African American) 53.7 ml/min; Est GFR (Non-African American) 46.3 ml/min; Magnesium 1.7 mg/dl (1.7-2.4); Phosphorus 2.4 mg/dl (2.5-4.9); Potassium 4.3 mmol/L (3.5-5.1)
[2021-07-27] MEDS: INSULIN ASPART PER UNIT SC SCH ×6 (04:00→20:49)
[2021-07-27] MEDS: ceFAZolin 2000MG 2,000 MG/15 ML SYR IV SCH ×2 (04:23→16:40)
--- NOTE | 2021-07-27 08:22 | Anesthesiology Consultation ---
Date of Service July 27, 2021 Assessment & Plan (1) Encounter for pre-operative examination: History Surgery Operation Date: 07/27/21 17:00 Proposed Procedures p Esophagogastroduodenoscopy Dr. Luis Miguel Bolanos MD Height/Weight Height: 5 ft 3 in Weight: 132.8 kg Allergies Allergy/AdvReac Type Severity Reaction Status Date / Time No Known Allergies Allergy Mild Verified 07/23/21 18:29 Medications Home Medications Medication Instructions Recorded Confirmed Last Taken aspirin 81 mg chewable tablet 81 mg PO DAILY 04/08/20 07/23/21 10/12/20 atorvastatin 20 mg tablet (Lipitor) 20 mg PO DAILY 04/08/20 07/23/21 10/12/20 ferrous sulfate 325 mg (65 mg 325 mg PO DAILY 04/08/20 07/23/21 10/12/20 iron) tablet insulin glargine 100 unit/mL (3 50 unit SUBCUT QAM ml 04/08/20 07/23/21 10/12/20 mL) subcutaneous pen (Lantus Solostar U-100 Insulin) lisinopril 5 mg tablet 5 mg PO DAILY 04/08/20 07/23/21 10/12/20 cinnamon bark 500 mg capsule 500 mg PO DAILY 07/23/21 07/23/21 Unknown (Cinnamon) insulin regular human 100 unit/mL 10 unit SUBCUT AC 07/23/21 07/23/21 Unknown (3 mL) subcutaneous pen (Novolin R Flexpen) multivitamin 1 tab PO DAILY 07/23/21 07/23/21 Unknown omega 4-mtz-lzp-fish oil 1,000 mg 1 cap PO BID 07/23/21 07/23/21 Unknown (120 mg-180 mg) capsule (Fish Oil) potassium chloride 10 mEq 10 meq PO DAILY 07/23/21 07/23/21 Unknown tablet,extended release Active Medications Generic Name Dose Route Start Last Admin Trade Name Freq PRN Reason Stop Dose Admin Acetaminophen 650 mg 07/24/21 03:16 07/24/21 03:44 Acetaminophen 325 Mg Tab PO 08/23/21 03:15 650 mg Q6H PRN Administration Fever/pain Atorvastatin Calcium 20 mg 07/24/21 09:00 07/26/21 07:50 Atorvastatin 20 Mg Tab PO 08/23/21 08:59 20 mg DAILY SIMEON Administration Fish Oil 1 gm 07/23/21 21:00 07/26/21 20:33 [place]-3 (Purified Fish Oil) 1 Gm Cap PO 08/22/21 20:59 1 gm BID SIMEON Administration Heparin Sodium/Dextrose 25,000 units in 500 mls @ 0 mls/hr 07/25/21 12:45 07/26/21 23:49 Heparin Sodium/Dextrose IV 08/24/21 12:44 0 units/hr .Q0M SIMEON 0 mls/hr Titration Protocol 0 UNITS/HR Pantoprazole Sodium 40 mg/ 100 mls @ 20 mls/hr 07/25/21 15:00 07/27/21 06:34 Dextrose IV 08/24/21 14:59 8 mg/hr Q5H SIMEON 20 mls/hr Administration 8 MG/HR Cefazolin Sodium 2,000 mg in 15 mls @ 3.75 mls/min 07/25/21 17:30 07/27/21 04:23 Ancef 2000mg IV 08/01/21 17:29 3.75 mls/min Q12H SIMEON Administration Protocol Insulin Aspart 0 units 07/26/21 12:00 07/27/21 04:00 Insulin Aspart Per Unit SC 08/25/21 11:59 Not Given Q4 SIMEON Insulin Glargine 0 units 07/26/21 21:00 07/26/21 20:32 Insulin Glargine Solostar 100 Units/Ml 3 Ml Pen SC 08/25/21 20:59 20 units HS SIMEON Administration Protocol Lactic Acid 1 gm 07/24/21 21:00 07/26/21 20:28 Ammonium Lactate 12% Lotion 225 Gm Btl EXT 08/23/21 20:59 1 gm BID SIMEON Administration Magnesium Chloride 64 mg 07/24/21 09:00 07/26/21 07:50 Magnesium Chloride 64mg Delayed Rel Tab PO 08/23/21 08:59 64 mg DAILY SIMEON Administration Miconazole Nitrate 1 appln 07/24/21 06:25 07/26/21 20:23 Miconazole Nitrate Powder 43 Gm EXT 08/23/21 06:24 1 appln BID SIMEON Administration Potassium Chloride 10 meq 07/24/21 09:00 07/26/21 07:50 Potassium Chloride 10 Meq Tabcr PO 08/23/21 08:59 10 meq DAILY SIMEON Administration NPO Date Last Intake of Fluids: 07/24/21 Time Last Intake of Fluids: 17:00 Date Last Intake of Solids: 07/24/21 Time Last Intake of Solids: 17:00 Past Medical History Medical History Aortic valve stenosis CKD (chronic kidney disease) stage 3, GFR 30-59 ml/min Diabetes Diastolic CHF Dyslipidemia GERD (gastroesophageal reflux disease) HTN (hypertension) Morbid obesity with BMI of 50.0-59.9, adult Obstructive sleep apnea Paroxysmal A-fib Pulmonary HTN Vitamin D deficiency Past Surgical History Surgical History S/P AVR Social History Smoking Status: Unknown if ever smoked Hx Alcohol Use: No Hx Substance Use: No substance use type: does not use Physical Exam Vital Signs Last Vital Signs Temp 36.9 C 07/27/21 07:59 Pulse 77 07/27/21 07:59 Resp 17 07/27/21 07:59 BP 110/55 L 07/27/21 07:59 Pulse Ox 99 07/27/21 07:59 Testing Laboratory Results 07/27/21 03:01 07/27/21 03:01 APTT 38.6 Seconds (21.0-31.0) H 07/26/21 20:35 Hemoglobin A1c 12.1 % (4.5-5.6) H 07/24/21 05:29 Urine Color Yellow 07/24/21 05:25 Urine Appearance Turbid (Clear) A 07/24/21 05:25 Urine pH 5.0 (4.5-7.5) 07/24/21 05:25 Ur Specific [place] 1.034 (1.000-1.030) H 07/24/21 05:25 Urine Protein 1+ (Negative) H 07/24/21 05:25 Urine Glucose (UA) 1+ (Negative) H 07/24/21 05:25 Urine Ketones Negative (Negative) 07/24/21 05:25 Urine Nitrite Negative (Negative) 07/24/21 05:25 Ur Leukocyte Esterase 3+ (Negative) H 07/24/21 05:25 Urine WBC (Auto) >30 /hpf (0-5) H 07/24/21 05:25 Urine RBC (Auto) 0-4 /hpf (0-4) 07/24/21 05:25 U Hyaline Cast (Auto) 1-5 /lpf (0-5) 07/24/21 05:25 U Epithel Cells (Auto) >30 /lpf (0-5) H 07/24/21 05:25 Urine Bacteria (Auto) Negative (Negative) 07/24/21 05:25 Blood Type A Positive 07/25/21 08:34 Antibody Screen NEGATIVE 07/25/21 08:34 07/24/21 05:25 Urine Culture - Final Urine,Clean Catch No growth - less than 1,000 colonies/mL. 07/23/21 17:04 Aerobic Blood Culture - Preliminary Blood No growth in Aerobic bottle after 48 hours. Anaerobic Blood Culture - Final 07/23/21 17:03 Aerobic Blood Culture - Preliminary Blood No growth in Aerobic bottle after 48 hours. Anaerobic Blood Culture - Preliminary No growth in Anaerobic bottle after 48 hours. 07/27/21 07/27/21 07/26/21 07:58 03:52 23:42 POC Glucose 145 H 133 H 163 H 07/26/21 20:31 POC Glucose 195 H
[2021-07-27] MEDS ORDERED: KETAMINE 50 MG/5 ML SYRINGE ONE (08:27)
[2021-07-27] MEDS ORDERED: LIDOCAINE 2% 2 ML VIAL/AMP(20MG/ML) INFIL ONE (08:28)
[2021-07-27] MEDS ORDERED: PROPOFOL IV EMULSION 10 MG/ML 20 ML VIAL IV ONE (08:28)
--- NOTE | 2021-07-27 08:33 | History & Physical Bridge Note ---
Date of Service July 27, 2021 History & Physical Bridge Note I have examined the patient, reviewed the History & Physical and in the interval since the performance of the History & Physical I have noted the following changes of clinical significance: no changes noted Supervising Physician Co-Signing Physician Notes EGD today
[2021-07-27] MEDS ORDERED: INSULIN GLARGINE SOLOSTAR 100 UNITS/ML 3 ML PEN SC SCH (09:00)
[2021-07-27] MEDS ORDERED: BENZOCAINE/TETRACAIN/BUTAM 50 APPLN/5 GM CAN EXT ONE (09:30)
[2021-07-27] MEDS ORDERED: PHENYLEPHRINE 100MCG/ML 5ML SYR ONE (09:30)
[2021-07-27] MEDS ORDERED: GLYCOPYRROLATE 0.2 MG/ML VIAL ONE (09:30)
--- NOTE | 2021-07-27 09:33 | Communication Note ---
Date of Service: July 27, 2021 EGD completed - findings of two superficial ulcers in duodenal bulb, one small, one large- large one empirically clipped. IV PPI for 72 hours. Resume AC given her pe. Once she complets IV PPI for 72 hours, bid ppi for at least 8 weeks.
--- NOTE | 2021-07-27 10:31 | GI REPORT ---
Patient Name: Patricia Don Procedure Date: 07/27/2021 9:12 AM Date of : 1945 Admit Type: Inpatient Age: 75 Gender: Female Attending MD: Anai Bolanos M.d. Procedure: Upper GI endoscopy Providers: Anai Bolanos M.d. Referring MD: Ramana Singh Md Indications: Hematochezia Medicines: Ketamine Complications: No immediate complications. Estimated Blood Loss: Estimated blood loss: none. Procedure: Pre-Anesthesia Assessment: - Patient identification and proposed procedure were verified prior to the procedure by the physician, the nurse and the anesthesiologist. The procedure was verified in the pre-procedure area. - Prior to the procedure, a History and Physical was performed, and patient medications, allergies and sensitivities were reviewed. The patient's tolerance of previous anesthesia was reviewed. - The risks and benefits of the procedure and the sedation options and risks were discussed with the patient. All questions were answered and informed consent was obtained. After obtaining informed consent, the endoscope was passed under direct vision. Throughout the procedure, the patient's blood pressure, pulse, and oxygen saturations were monitored continuously. The Endoscope was introduced through the mouth, and advanced to the second part of duodenum. The upper GI endoscopy was accomplished without difficulty. The patient tolerated the procedure well. Findings: The examined esophagus appeared normal. The Z-line appeared regular. The examined stomach appeared normal. Two non-bleeding superficial duodenal ulcers without stigmata of bleeding were found in the duodenal bulb. One hemostatic clip was successfully placed (MR conditional) on the distal ulcer. There was no bleeding at the end of the procedure. Bile was present prior to and after the clip placement. Impression: - Normal esophagus. - Z-line regular. - Normal stomach. - Non-bleeding duodenal ulcers with no stigmata of bleeding. Clip (MR conditional) was placed. Recommendation: - No active bleeding was seen today. - Two bulbar ulcers noted without evidence of pigmented spot or bleeding. An empiric clip was placed on the larger of the two ulcers. Omayra Henry M.d. 07/27/2021 10:30:48 AM This report has been signed electronically. Note Initiated On: 07/27/2021 9:12 AM Number of Addenda: 0 I attest to the content of the Intraoperative Record and orders documented therein, exceptions below {[id number]}
[2021-07-27] MEDS: AMMONIUM LACTATE 12% LOTION 225 GM BTL EXT SCH ×2 (11:00→20:40)
[2021-07-27] MEDS: MICONAZOLE NITRATE POWDER 43 GM EXT SCH ×2 (11:01→20:41)
[2021-07-27 11:03] LABS: Hematocrit (blood only) 25.6 % (37-47); Hemoglobin 7.9 g/dL (12.0-16.0)
--- NOTE | 2021-07-27 11:12 | Anesthesiology Progress Note ---
Date of Service July 27, 2021 Anesthesia Post Procedure Vital Signs Vital Signs: Temp Pulse Pulse Resp BP BP Pulse Ox 07/27/21 10:40 36.8 C 67 26 H 106/55 L 96 07/27/21 09:58 82 20 107/67 100 07/27/21 09:42 87 18 137/56 L 100 07/27/21 09:27 83 16 149/59 H 100 07/27/21 09:24 79 07/27/21 08:58 35.8 C L 84 16 125/68 98 07/27/21 07:59 36.9 C 77 17 110/55 L 99 07/27/21 03:23 36.8 C 81 22 108/52 L 93 07/27/21 02:39 82 07/26/21 23:46 36.8 C 74 21 109/48 L 98 07/26/21 19:57 36.8 C 74 21 116/50 L 98 07/26/21 18:46 78 07/26/21 15:54 37.2 C 80 19 99/69 L 99 07/26/21 14:17 36.9 C 77 28 H 107/49 L 99 07/26/21 13:01 78 24 115/54 L 93 07/26/21 12:00 77 28 H 118/55 L 97 Transfer of Care Handoff Completed per policy Notes Mental Status: alert / awake / arousable and participated in evaluation Patient Amnestic to Procedure: Yes Nausea / Vomiting: adequately controlled Pain: adequately controlled Airway Patency, RR, SpO2: stable & adequate BP & HR: stable & adequate Hydration State: stable & adequate Anesthetic Complications: no major complications apparent and Pt Satisfied with anesthetic care
--- NOTE | 2021-07-27 11:58 | Pharmacy Report ---
Pharmacy Glycemic Short Note 2 - Date of Service July 27, 2021 - Glycemic Short BSG Results (Last 24 hours): 07/26/21 07/26/21 07/26/21 12:21 17:09 20:31 Glucose POC Glucose 122 H 140 H 195 H 07/26/21 07/27/21 07/27/21 23:42 03:01 03:52 Glucose 111 H POC Glucose 163 H 133 H 07/27/21 07/27/21 07:58 10:38 Glucose POC Glucose 145 H 176 H OUTPATIENT ANTIDIABETIC REGIMEN: * Novolog 10 units AC * Lantus 50 units daily ASSESSMENT: 07/27 * BSGs fairly well controlled over last 24 hrs * Insulin needs appear to have decreased since IV heparin drip held yesterday afternoon. * Fasting BSGs at goal with 60 units basal on board. Today is Day 2 NPO status. Pt is receiving minimal dextrose from Protonix gtt. * Will scale back Lantus dosing due to risk of prolonged hypoglycemia with ongoing NPO. Will split dosing BID and dose per scale. * Continue "high" stress level Novolog dosing initially and cover Q 4 hrs for now. 07/26 * 75 year old female admitted for fall, found to have PE treated with IV heparin, now with GIB, moved to ICU yesterday, pharmacy consulted for glycemic management. * Patient hyperglycemic since admission on Lantus 50 units HS + NovoLog CF/CR 04/05 * Patient started on IV insulin infusion yesterday evening, drip rate started at 5units/hr, down to 1.9units/hr over past 3 hours, no basal insulin ordered yesterday while on insulin drip * Patient euglycemic and ready to transition back to SQ insulin * Patient currently NPO, will begin with slightly reduced Lantus dose, then add HS PRN dose tonight PLAN FOR INPATIENT GLYCEMIC CONTROL: * Basal insulin * Lantus 14 units x 1 this AM, then dose BID per scale starting this PM: 0 units if BSG less than 110, 14 units if 110-140, 20 units if > 140 * Bolus insulin * NovoLog per scale Q4H * Goal Range: Low 110 mg/dL - High 140 mg/dL * Correction Factor: 15 mg/dL/unit * Nutritional / Prandial insulin per carb ratio of 1 unit per 5 grams CHO consumed
--- NOTE | 2021-07-27 12:18 | Consultation ---
Date of Consultation July 27, 2021 Assessment & Plan (1) Pulmonary embolism: Pt with R sided PE and BLE DVT. Began to have GI bleeding after starting heparin drip, however, her hgb has stabilized after 1 u PRBC. SHe had EGD this AM during which she had a single concerning area(which was not actively bleeding) clipped. Do not recommend IVC filter insertion at this time. Would be happy to reevaluate if further significant bleeding occurs. Do recommend she be eval by wound care re: the R heel ulcer and shallow leg ulcers. She does not appear to have regular care of these and it is unknown how long they have been present. Her feet demonstrate no sign of ischemia nad she has excellent doppler signals. Please call if needed. Acute cor pulmonale presence: without acute cor pulmonale Chr onicity: acute Pulmonary embolism type: other Qualified Code(s): I26.99 - Other pulmonary embolism without acute cor pulmonale History of Present Illness Reason for Consultation: DVT/PE, GI bleed Attending Physician: Ramana Singh MD History of Present Illness 75 yo f with hx of DMII, obesity, CKD, GERD, CHF, paroxysmal a fib, HTN, COPD, venous stasis, admitted with PE/DVT, seen in consultation today for possible IVC filter insertion d/t GI bleeding. Pt is poor historian and mildly confused. Pt states no prior hx of DVT in past, but has had chronic severe edema of BLE for years. States she spends most of her days at home sitting with her legs elevated. Does ambulate to BR and bedroom and kitchen. Does not remember falling at home. Admits SOB, MARI, and fatigue. Denies fever, chest pain, abd pain, N/V, rest pain, claudication, other complaints. CTA chest demonstrates R sided PE. BLE venous doppler demonstrates popliteal DVT. Allergies Allergy/AdvReac Type Severity Reaction Status Date / Time No Known Allergies Allergy Mild Verified 07/23/21 18:29 Home Medications Medication Instructions Recorded Confirmed Type aspirin 81 mg chewable tablet 81 mg PO DAILY 04/08/20 07/23/21 History atorvastatin 20 mg tablet (Lipitor) 20 mg PO DAILY 04/08/20 07/23/21 History ferrous sulfate 325 mg (65 mg 325 mg PO DAILY 04/08/20 07/23/21 History iron) tablet insulin glargine 100 unit/mL (3 50 unit SUBCUT QAM ml 04/08/20 07/23/21 History mL) subcutaneous pen (Lantus Solostar U-100 Insulin) lisinopril 5 mg tablet 5 mg PO DAILY 04/08/20 07/23/21 History cinnamon bark 500 mg capsule 500 mg PO DAILY 07/23/21 07/23/21 History (Cinnamon) insulin regular human 100 unit/mL 10 unit SUBCUT AC 07/23/21 07/23/21 History (3 mL) subcutaneous pen (Novolin R Flexpen) multivitamin 1 tab PO DAILY 07/23/21 07/23/21 History omega 0-pyy-feb-fish oil 1,000 mg 1 cap PO BID 07/23/21 07/23/21 History (120 mg-180 mg) capsule (Fish Oil) potassium chloride 10 mEq 10 meq PO DAILY 07/23/21 07/23/21 History tablet,extended release Patient History Medical History Aortic valve stenosis CKD (chronic kidney disease) stage 3, GFR 30-59 ml/min Diabetes Diastolic CHF Dyslipidemia GERD (gastroesophageal reflux disease) HTN (hypertension) Morbid obesity with BMI of 50.0-59.9, adult Obstructive sleep apnea Paroxysmal A-fib Pulmonary HTN Vitamin D deficiency Surgical History S/P AVR Social History Smoking Status: Unknown if ever smoked Second Hand Exposure: No; Hx Alcohol Use: No Hx Substance Use: No Preferred Language: Trinidadian Communication Ability: Effective Sand System Operator Required: No Beliefs That Will Affect Care: None marital status: Current Living Situation: Family Current Living Situation Comment: Lives at home with son Feels Safe at Home: Yes Safety Concerns: Feels Safe At This Time Assistive Devices: Oxygen - Continuous Assistive Devices Comment: Patient states she does use any of the above Review of Systems Review of Systems: All systems reviewed & are unremarkable except as noted in HPI & below Physical Exam Constitutional: WD/WN, vitals as above + morbidly obese, cooperative and comfortable; not in distress ENMT: Ears: no hearing impairment Neck: trachea midline Respiratory: normal respiratory effort; no respiratory distress Auscu ltation: lungs clear to auscultation bilaterally and + diminished lung sounds Cardiovascular: Rate/Rhythm: regular rate and regular rhythm Vessels: posterior tibial pulses present (excellent doppler signals), dorsalis pedis pulses present (excellent doppler signals) and radial pulses present; + abnormal peripheral pulses Extremities: normal capillary refill (warm and pink), + pedal edema and + edema Gastrointestinal (Abdomen): Inspection/Auscultation: normal bowel sounds; abdomen not distended Percussion/Palpation: abdomen soft; abdomen nontender Musculoskeletal: no cyanosis or clubbing, extremities motor strength 5/5 Skin: + ulcer, + erythema (R lower leg + warmth), + eschar (R heel approx size of quarter.) and + lichenification (BLE) BLE with +3 edema and thickened skin and lichenification. RLE with erythema/warmth lower leg, with shallow ulcerations posterior lower leg. single eschar noted R heel. Neurologic: moves all extremities, awake and + confused; no focal motor deficits Psychiatric: Orientation: alert, oriented to person and oriented to place; + not oriented to time Eye Contact: good eye contact Results & Data ([facility]) Vital Signs (Past 12 Hours) Vital Signs Temp Pulse Pulse Resp BP Pulse Ox 07/27/21 10:40 36.8 C 67 26 H 106/55 L 96 07/27/21 09:58 82 20 107/67 100 07/27/21 09:42 87 18 137/56 L 100 07/27/21 09:27 83 16 149/59 H 100 07/27/21 09:24 79 07/27/21 08:58 35.8 C L 84 16 125/68 98 07/27/21 07:59 36.9 C 77 17 110/55 L 99 07/27/21 03:23 36.8 C 81 22 108/52 L 93 07/27/21 02:39 82
[2021-07-27] MEDS: OMEGA-3 (PURIFIED FISH OIL) 1 GM CAP PO SCH ×2 (12:35→20:39)
[2021-07-27] MEDS: ATORVASTATIN 20 MG TAB PO SCH (12:35)
[2021-07-27] MEDS: MAGNESIUM CHLORIDE 64MG DELAYED REL TAB PO SCH (12:35)
[2021-07-27] MEDS: POTASSIUM CHLORIDE 10 MEQ TABCR PO SCH (12:40)
[2021-07-27 15:30] LABS: Hematocrit (blood only) 25.3 % (37-47); Hemoglobin 7.7 g/dL (12.0-16.0)
--- NOTE | 2021-07-27 16:10 | Hospitalist Progress Note ---
Date of Service July 27, 2021 Assessment & Plan (1) Sepsis: (2) Pulmonary embolism: Plan: 74 years old and morbidly obese female w/ PMH of KENAN, paroxysmal atrial fibrillation, type 2 diabetes on insulin, hypertension, diastolic CHF, hyperlipidemia, GERD, pulmonary hypertension, apparently was brought into the ER 07/23 by the EMS following a fall at home. She lives with her son who found her in between bed and dresser after coming back from work. She is being managed for the following: #. GI bleed 07/25, likely upper #. Acute blood loss anemia: 06/17 above Patient reports having no GI doctor as an outpatient, denies any colonoscopy in the past Patient also denies any gastritis/indigestion/reflux symptoms in the past. Patient has been on heparin drip for dvt and PE since 2 days as of 07/25 On 07/25 AM, patient had an episode of large elise colored liquid stool in the morning. FOBT came back positive. She had another episode during the day in 07/25 and 07/27. No further BM. s/p 1 unit, Hb stable, 7.7 today HnH Q6H, c/w heparin drip. c/w PPI drip for 72 hours, then twice daily for 8 weeks. d/w GI: EGD scope 07/27 with 2 superficial ulcers in duodenal bulb, larger one empirically clipped. Continue with anticoagulation. #. Pulmonary edema - likely iatrogenic Patient oxygen at home 3 L per patient Patient currently on 3 L but seems to have labored breathing today Patient has got multiple fluids and blood transfusion. Repeat CXR 07/26 reveals increasing vascular congestion in the lungs. 07/26/21 echo [due to PE]: Ejection fraction 60 to 65% with normal left ventricular structure and function. Moderate concentric LVH. s/p small iv lasix on 07/26, pt doing well, closely monitor for volume overload. #. Cellulitis RLE #. Sepsis POA: At presentation, tachycardic and with elevated WBC on the background of RLE cellulitis. Febrile but temperature below 38 degree C Patient has history of BLE cellulitis. On exam, chronic BLE skin changes/edematous, mostly non pitting. --> Lac hydrin lotion. Patient does have right heel superficial ulcer with surrounding erythema and tenderness, likely source of RLE cellulitis --> improving redness and tenderness 07/25 CT Rt foot:11mm skin ulceration w/ cellulitis, no evidence of OM/abscess Admitting blood culture- [id number]. Admitting pro-Efraín 13.45 Wound care nurse on board, appreciate recommendation. Temperature getting better, WBC coming down ID evaluated: Cefepime 07/24 --> cefazolin 07/25. F/u final cultures. Pt will need OP wound care f/u. #. Bilateral DVT #. Pulmonary embolism: likely secondary to above Patient has shortness of breath on presentation with tachycardia. Admitting bilateral venous Doppler: Positive for nonocclusive DVT Admitting CTA chest: Positive for right sided PE, no evidence of right heart strain noted. Heparin drip (see above); oral NOAC vs coumadin at time of DC. Agreeable to send Eliquis to pharmacy for cost assessment. But will likely benefit from coumadin due to easy reversibility in case we need, will talk with patient. c/w heparin drip for now. 07/27 vascular surgery evaluated, no IVC filter recommendation at this time, reach out if further significant bleeding occurs. Will need to be in touch with PCP for anticoagulation work-up and further discussion on anticoagulation treatment. Likely will need outpatient hematology. #. Presumed UTI UA suggestive, urine culture pending Patient denies any pain or burning while passing urine. Patient is on antibiotic for RLE cellulitis. #. CIERA over CKD stage III Baseline creatinine around 0.8-1 Admitting creatinine of 1.92, Resolved Monitor BMP daily and as appropriate. #. Generalized weakness #. Fall Came in with fall with no obvious injury Remains generally weak and lethargic Uses 3 L oxygen at home Admitting CT head, C-spine CT, CXR reviewed. #. Other chronic medical conditions: Paroxysmal A. fib, diastolic CHF, COPD, DM on insulin therapy Continue with/resume home medications as and when appropriate. DVT prophylaxis: on heparin drip CODE STATUS: Pt doesn't seem to have living will, confirmed code status with the patient, she is full code. Admission and Anticipated Discharge Date Admission Date: July 23, 2021 Subjective Patient seen and examined at bedside as a follow-up of bilateral DVT and pulmonary embolism, RLE cellulitis, CIERA/CKD stage III. Patient was lying in bed, on 3 L nasal cannula oxygen, NAD, no new acute events overnight. Patient recently came from a scope. Was alert and oriented x3 but appears lethargic. Per RN patient had one bloody bowel movement yesterday. Patient denies any headache/dizziness/belly pain/chest pain/palpitation/other review of symptoms. On clear liquid diet per GI. Physical Exam Physical Exam: GENERAL: Alert and oriented x3. NAD, on 3L NC O2, Morbidly obese. HEENT: No pallor, no icterus. Pupils equal, round and reactive to light. Oral mucosa dry. NECK: No JVD, no neck masses. HEART: S1 and S2 heard. Regular rate and rhythm. No murmur, no gallop. RESPIRATORY SYSTEM: Normal AP diameter. No accessory muscle use. No wheezing, b/b crackles crackles. ABDOMEN: Soft, bowel sounds present, nontender, no distention. CENTRAL NERVOUS SYSTEM: No facial droop. Speech is clear. Obeys simple commands. Moves extremities. EXTREMITIES: BLE edematous, mostly non pitting. BLE chronic skin changes w/ warmth and erythema to RLE, jorge luis leg and heel. Rt heel with superficial ulcer w/ surrounding erythema, and tenderness. Results & Data Results & Data ([facility]) Vital Signs (Past 12 Hours) Vital Signs Temp Pulse Pulse Resp BP Pulse Ox 07/27/21 15:43 36.6 C 74 19 101/56 L 99 07/27/21 14:57 76 07/27/21 10:40 36.8 C 67 26 H 106/55 L 96 07/27/21 09:58 82 20 107/67 100 07/27/21 09:42 87 18 137/56 L 100 07/27/21 09:27 83 16 149/59 H 100 07/27/21 09:24 79 07/27/21 08:58 35.8 C L 84 16 125/68 98 07/27/21 07:59 36.9 C 77 17 110/55 L 99
[2021-07-27] MEDS: HEPARIN SODIUM/DEXTROSE 25,000 UNITS/500 ML BAG IV SCH (17:35)
[2021-07-27] MEDS: INSULIN GLARGINE SOLOSTAR 100 UNITS/ML 3 ML PEN SC SCH (20:43)
[2021-07-27 21:07] LABS: Hematocrit (blood only) 23.8 % (37-47); Hemoglobin 7.4 g/dL (12.0-16.0)
[2021-07-27 23:30] LABS: Partial Thromboplastin Ratio 1.4; Partial Thromboplastin Time 37.5 Seconds (21.0-31.0)
[2021-07-28] MEDS ORDERED: HEPARIN SOD (PORCINE) 1000 UNIT/ML IV ONE
[2021-07-28] MEDS ORDERED: INSULIN ASPART PER UNIT SC SCH (02:00)
[2021-07-28] MEDS: PANTOprazole 40 MG in DEXTROSE 5% 100 ML IV SCH ×5 (03:09→23:28)
[2021-07-28 03:57] LABS: Hematocrit (blood only) 25.4 % (37-47); Hemoglobin 7.7 g/dL (12.0-16.0); Mean Corpuscular Hemoglobin 28.7 pg (25-34); Mean Corpuscular Hgb Conc 30.3 g/dL (32-36); Mean Corpuscular Volume 94.8 fL (80-100); Mean Platelet Volume 9.7 fL (7.4-10.4); Nucleated RBC # (auto) 0.07 K/uL (0-0); Nucleated RBC % (auto) 0.7 %; Platelet Count 278 K/uL (130-400); RDW Coefficient of Variation 15.2 % (11.5-14.5); Red Blood Count 2.68 M/uL (4.2-5.4); White Blood Count 10.45 K/uL (4.8-10.8)
[2021-07-28] MEDS: ceFAZolin 2000MG 2,000 MG/15 ML SYR IV SCH ×2 (05:26→16:48)
[2021-07-28 06:52] LABS: Magnesium 1.5 mg/dl (1.7-2.4); Phosphorus 2.8 mg/dl (2.5-4.9)
[2021-07-28 07:09] LABS: Partial Thromboplastin Ratio 3.1
[2021-07-28 07:15] LABS: Partial Thromboplastin Time 84.6 Seconds (21.0-31.0)
[2021-07-28] MEDS: INSULIN ASPART PER UNIT SC SCH ×4 (07:58→21:35)
[2021-07-28] MEDS: ATORVASTATIN 20 MG TAB PO SCH (07:59)
[2021-07-28] MEDS: MAGNESIUM CHLORIDE 64MG DELAYED REL TAB PO SCH (07:59)
[2021-07-28] MEDS: OMEGA-3 (PURIFIED FISH OIL) 1 GM CAP PO SCH ×2 (07:59→21:34)
[2021-07-28] MEDS: AMMONIUM LACTATE 12% LOTION 225 GM BTL EXT SCH ×2 (08:00→21:39)
[2021-07-28] MEDS: INSULIN GLARGINE SOLOSTAR 100 UNITS/ML 3 ML PEN SC SCH (08:01)
[2021-07-28] MEDS ORDERED: FUROSEMIDE INJ 20 MG/2 ML VIAL IV ONE (08:13)
[2021-07-28] MEDS: MICONAZOLE NITRATE POWDER 43 GM EXT SCH ×2 (08:18→21:39)
[2021-07-28] MEDS: MAGNESIUM SULFATE / D5W 1 GM/100 ML BAG IV SCH ×2 (08:47→10:58)
[2021-07-28] MEDS: POTASSIUM CHLORIDE 10 MEQ TABCR PO SCH (08:48)
[2021-07-28] MEDS ORDERED: INSULIN GLARGINE SOLOSTAR 100 UNITS/ML 3 ML PEN SC ONE ×2 (09:00)
[2021-07-28 09:49] LABS: Hematocrit (blood only) 26.2 % (37-47); Hemoglobin 7.9 g/dL (12.0-16.0)
--- NOTE | 2021-07-28 10:46 | Pharmacy Report ---
Pharmacy Glycemic Short Note 2 - Date of Service July 28, 2021 - Glycemic Short BSG Results (Last 24 hours): 07/27/21 07/27/21 07/27/21 10:38 16:32 20:40 POC Glucose 176 H 239 H 221 H 07/28/21 07:23 POC Glucose 141 H OUTPATIENT ANTIDIABETIC REGIMEN: * Novolog 10 units AC * Lantus 50 units daily ASSESSMENT: 07/28 * T2DM/clear liq diet ordered yesterday evening * BSG's all above goal yesterday after reduction in basal insulin. * Will increase basal today and keep BID for now, but with higher dose this AM to try to get back to qAM admin as an outpatient * May need to adjust CHO ratio depending on trend in post-prandial BSG's now that diet is ordered 07/27 * BSGs fairly well controlled over last 24 hrs * Insulin needs appear to have decreased since IV heparin drip held yesterday afternoon. * Fasting BSGs at goal with 60 units basal on board. Today is Day 2 NPO status. Pt is receiving minimal dextrose from Protonix gtt. * Will scale back Lantus dosing due to risk of prolonged hypoglycemia with ongoing NPO. Will split dosing BID and dose per scale. * Continue "high" stress level Novolog dosing initially and cover Q 4 hrs for now. 07/26 * 75 year old female admitted for fall, found to have PE treated with IV heparin, now with GIB, moved to ICU yesterday, pharmacy consulted for glycemic management. * Patient hyperglycemic since admission on Lantus 50 units HS + NovoLog CF/CR 04/05 * Patient started on IV insulin infusion yesterday evening, drip rate started at 5units/hr, down to 1.9units/hr over past 3 hours, no basal insulin ordered yesterday while on insulin drip * Patient euglycemic and ready to transition back to SQ insulin * Patient currently NPO, will begin with slightly reduced Lantus dose, then add HS PRN dose tonight PLAN FOR INPATIENT GLYCEMIC CONTROL: * Basal insulin * Lantus 30 units this AM (20+10 units) then an additional 10-20 units HS depending on BSG * Bolus insulin * NovoLog per scale ACHS * Goal Range: Low 110 mg/dL - High 140 mg/dL * Correction Factor: 15 mg/dL/unit * Nutritional / Prandial insulin per carb ratio of 1 unit per 5 grams CHO consumed
[2021-07-28] MEDS: HEPARIN SODIUM/DEXTROSE 25,000 UNITS/500 ML BAG IV SCH (11:52)
[2021-07-28 14:59] LABS: Hematocrit (blood only) 25.3 % (37-47); Hemoglobin 7.9 g/dL (12.0-16.0)
[2021-07-28 15:26] LABS: Partial Thromboplastin Ratio 1.7
--- NOTE | 2021-07-28 15:26 | Hospitalist Progress Note ---
Date of Service July 28, 2021 Assessment & Plan (1) Sepsis: (2) Pulmonary embolism: Plan: 74 years old and morbidly obese female w/ PMH of KENAN, paroxysmal atrial fibrillation, type 2 diabetes on insulin, hypertension, diastolic CHF, hyperlipidemia, GERD, pulmonary hypertension, apparently was brought into the ER 07/23 by the EMS following a fall at home. She lives with her son who found her in between bed and dresser after coming back from work. She is being managed for the following: #. GI bleed 07/25, likely upper #. Acute blood loss anemia: / above Patient reports having no GI doctor as an outpatient, denies any colonoscopy in the past Patient also denies any gastritis/indigestion/reflux symptoms in the past. Patient has been on heparin drip for dvt and PE since 2 days as of 07/25 On 07/25 AM, patient had an episode of large elise colored liquid stool in the morning. FOBT came back positive. She had other bloody BM episodes during the day in 07/25 and 07/26 one each. More yellow BM (per RN) on 07/27 s/p 1 unit, Hb stable, 7.9 today HnH Q8H, c/w heparin drip. c/w PPI drip for 48 hours, then twice daily for 8 weeks. d/w GI: EGD scope 07/27 with 2 superficial ulcers in duodenal bulb, larger one empirically clipped. Continue with anticoagulation. #. Pulmonary edema - likely iatrogenic Patient oxygen at home 3 L per patient Patient currently on 3 L but seems to have labored breathing today Patient has got multiple fluids and blood transfusion. Repeat CXR 07/26 reveals increasing vascular congestion in the lungs. 07/26/21 echo [due to PE]: Ejection fraction 60 to 65% with normal left ventricular structure and function. Moderate concentric LVH. s/p small iv lasix on 07/26, pt doing well, closely monitor for volume overload. #. Cellulitis RLE #. Sepsis POA: At presentation, tachycardic and with elevated WBC on the background of RLE cellulitis. Febrile but temperature below 38 degree C Patient has history of BLE cellulitis. On exam, chronic BLE skin changes/edematous, mostly non pitting. --> Lac hydrin lotion. Patient does have right heel superficial ulcer with surrounding erythema and tenderness, likely source of RLE cellulitis --> improving redness and tenderness 07/25 CT Rt foot:11mm skin ulceration w/ cellulitis, no evidence of OM/abscess Admitting blood culture- [id number]. Admitting pro-Efraín 13.45 Wound care nurse on board, appreciate recommendation. Patient afebrile, WBC normal. ID evaluated: Cefepime 07/24 --> cefazolin 07/25. F/u final cultures. Pt will need OP wound care f/u. #. Bilateral DVT #. Pulmonary embolism: likely secondary to above Patient has shortness of breath on presentation with tachycardia. Admitting bilateral venous Doppler: Positive for nonocclusive DVT Admitting CTA chest: Positive for right sided PE, no evidence of right heart strain noted. Heparin drip (see above); Coumadin more appropriate if need of reversal arises. Pt agreeable c/w heparin drip, likely start coumadin tomorrow if Hb stays stable 07/27 vascular surgery evaluated, no IVC filter recommendation at this time, reach out if further significant bleeding occurs. Will need to be in touch with PCP for anticoagulation work-up and further discussion on anticoagulation treatment. Likely will need outpatient hematology. #. Presumed UTI UA suggestive, urine culture pending Patient denies any pain or burning while passing urine. Patient is on antibiotic for RLE cellulitis. #. CIERA over CKD stage III Baseline creatinine around 0.8-1 Admitting creatinine of 1.92, Resolved Monitor BMP daily and as appropriate. #. Generalized weakness #. Fall Came in with fall with no obvious injury Remains generally weak and lethargic Uses 3 L oxygen at home Admitting CT head, C-spine CT, CXR reviewed. #. Other chronic medical conditions: Paroxysmal A. fib, diastolic CHF, COPD, DM on insulin therapy Continue with/resume home medications as and when appropriate. DVT prophylaxis: on heparin drip CODE STATUS: Pt doesn't seem to have living will, confirmed code status with the patient, she is full code. Disposition: PT/OT, CM to assist with DC planning. Admission and Anticipated Discharge Date Admission Date: July 23, 2021 Subjective Patient seen and examined at bedside as a follow-up of bilateral DVT and pulmonary embolism, RLE cellulitis, CIERA/CKD stage III. Patient was lying in bed, on 3 L nasal cannula oxygen, NAD, no new acute events overnight. Pt has more yellow BM yesterday per RN. Patient denies any headache/dizziness/belly pain/chest pain/palpitation/other review of symptoms. Advance deit to Full today, plan for soft diet in AM seb Physical Exam Physical Exam: GENERAL: Alert and oriented x3. NAD, on 3L NC O2, Morbidly obese. HEENT: No pallor, no icterus. Pupils equal, round and reactive to light. Oral mucosa moist. NECK: No JVD, no neck masses. HEART: S1 and S2 heard. Regular rate and rhythm. No murmur, no gallop. RESPIRATORY SYSTEM: Normal AP diameter. No accessory muscle use. No wheezing, b/b crackles. ABDOMEN: Soft, bowel sounds present, nontender, no distention. CENTRAL NERVOUS SYSTEM: No facial droop. Speech is clear. Obeys simple commands. Moves extremities. EXTREMITIES: BLE edematous, mostly non pitting. BLE chronic skin changes w/ warmth and erythema to RLE, jorge luis leg and heel. Rt heel with superficial ulcer w/ surrounding erythema/tenderness has improved Results & Data Results & Data ([facility]) Vital Signs (Past 12 Hours) Vital Signs Temp Pulse Pulse Resp BP Pulse Ox 07/28/21 15:03 76 07/28/21 11:39 37.3 C 70 19 114/41 L 100 07/28/21 09:27 68 07/28/21 08:21 36.8 C 97 H 20 121/55 L 99 07/28/21 04:00 36.8 C 71 18 165/71 H 99
[2021-07-28 15:28] LABS: Partial Thromboplastin Time 46.3 Seconds (21.0-31.0)
[2021-07-28] MEDS ORDERED: INSULIN GLARGINE SOLOSTAR 100 UNITS/ML 3 ML PEN SC SCH (21:00)
[2021-07-28 22:47] LABS: Hematocrit (blood only) 25.7 % (37-47); Hemoglobin 7.8 g/dL (12.0-16.0)
[2021-07-29] MEDS: PANTOprazole 40 MG in DEXTROSE 5% 100 ML IV SCH ×3 (04:15→16:17)
[2021-07-29] MEDS: ceFAZolin 2000MG 2,000 MG/15 ML SYR IV SCH ×2 (05:50→16:52)
[2021-07-29] MEDS: HEPARIN SODIUM/DEXTROSE 25,000 UNITS/500 ML BAG IV SCH (05:56)
--- NOTE | 2021-07-29 06:19 | Electrocardiogram Report ---
Test Reason : Blood Pressure : / mmHG Vent. Rate : 069 BPM Atrial Rate : 069 BPM P-R Int : 190 ms QRS Dur : 144 ms QT Int : 438 ms P-R-T Axes : 075 079 024 degrees QTc Int : 469 ms Sinus rhythm with Premature atrial complexes Right bundle branch block Abnormal ECG When compared with ECG of 23-JUL-2021 13:26, Premature atrial complexes are now Present Vent. rate has decreased BY 82 BPM Rhythm is now sinus Confirmed by Rodrigo Nicholas ([id number]) on 07/29/2021 6:19:22 AM Referred By: REFERRED SELF Confirmed By:Rodrigo Nicholas
[2021-07-29 08:18] LABS: Hematocrit (blood only) 26.2 % (37-47)
[2021-07-29 08:44] LABS: Partial Thromboplastin Ratio 3.2
[2021-07-29] MEDS: INSULIN GLARGINE SOLOSTAR 100 UNITS/ML 3 ML PEN SC SCH ×2 (08:50→23:09)
[2021-07-29] MEDS: INSULIN ASPART PER UNIT SC SCH ×4 (08:51→23:08)
[2021-07-29] MEDS: MICONAZOLE NITRATE POWDER 43 GM EXT SCH ×2 (08:52→20:15)
[2021-07-29] MEDS: OMEGA-3 (PURIFIED FISH OIL) 1 GM CAP PO SCH ×2 (08:52→20:12)
[2021-07-29] MEDS: ATORVASTATIN 20 MG TAB PO SCH (08:52)
[2021-07-29] MEDS: MAGNESIUM CHLORIDE 64MG DELAYED REL TAB PO SCH (08:52)
[2021-07-29 08:53] LABS: Partial Thromboplastin Time 88.5 Seconds (21.0-31.0)
[2021-07-29] MEDS: AMMONIUM LACTATE 12% LOTION 225 GM BTL EXT SCH ×2 (09:08→20:15)
[2021-07-29] MEDS: POTASSIUM CHLORIDE 10 MEQ TABCR PO SCH (09:09)
--- NOTE | 2021-07-29 12:32 | Hospitalist Progress Note ---
Date of Service July 29, 2021 Assessment & Plan (1) Sepsis: (2) Pulmonary embolism: Plan: 74 years old and morbidly obese female w/ PMH of KENAN, paroxysmal atrial fibrillation, type 2 diabetes on insulin, hypertension, diastolic CHF, hyperlipidemia, GERD, pulmonary hypertension, apparently was brought into the ER 07/23 by the EMS following a fall at home. She lives with her son who found her in between bed and dresser after coming back from work. She is being managed for the following: #. GI bleed 07/25, likely upper #. Acute blood loss anemia: 06/17 above Patient reports having no GI doctor as an outpatient, denies any colonoscopy in the past Patient also denies any gastritis/indigestion/reflux symptoms in the past. Patient has been on heparin drip for dvt and PE since 2 days as of 07/25 On 07/25 AM, patient had an episode of large elise colored liquid stool in the morning. FOBT came back positive. She had other bloody BM episodes during the day in 07/25 and 07/26 one each. More yellow BM (per RN) on 07/27. Pt not aware of the color of stool on 07/28. s/p 1 unit, Hb stable, 8.0 today HnH Q8H, c/w heparin drip. c/w PPI drip for 24 hours, then twice daily for 8 weeks. GI: EGD scope 07/27 with 2 superficial ulcers in duodenal bulb, larger one empirically clipped. Continue with anticoagulation. Warfarin initiated 07/29 (see below). #. Pulmonary edema - likely iatrogenic Patient oxygen at home 3 L per patient Patient currently on 3 L but seems to have labored breathing today Patient has got multiple fluids and blood transfusion. Repeat CXR 07/26 reveals increasing vascular congestion in the lungs. 07/26/21 echo [due to PE]: Ejection fraction 60 to 65% with normal left ventricular structure and function. Moderate concentric LVH. s/p small dose iv lasix on 07/26, pt doing well, closely monitor for volume overload. #. Cellulitis RLE #. Sepsis POA: At presentation, tachycardic and with elevated WBC on the background of RLE cellulitis. Febrile but temperature below 38 degree C Resolved Patient has history of BLE cellulitis. On exam, chronic BLE skin changes/edematous, mostly non pitting. --> Lac hydrin lotion. Patient does have right heel superficial ulcer with surrounding erythema and tenderness, likely source of RLE cellulitis --> improved redness and tenderness 07/25 CT Rt foot:11mm skin ulceration w/ cellulitis, no evidence of OM/abscess Admitting blood culture- NG for 5 days. Admitting pro-Efraín 13.45 Wound care nurse on board, appreciate recommendation. Patient afebrile, WBC normal. ID evaluated: Cefepime 07/24 --> cefazolin 07/25. F/u final cultures. Pt will need OP wound care f/u. Pt made aware #. Bilateral DVT #. Pulmonary embolism: likely secondary to above Patient has shortness of breath on presentation with tachycardia. Admitting bilateral venous Doppler: Positive for nonocclusive DVT Admitting CTA chest: Positive for right sided PE, no evidence of right heart strain noted. Heparin drip (see above); Pt agreed to coumadin --> started 07/29, f/u PT/INR daily, goal INR 2-3. c/w heparin drip, Hb has stayed stable. 07/27 vascular surgery evaluated, no IVC filter recommendation at this time, reach out if further significant bleeding occurs. Will need to be in touch with PCP for anticoagulation work-up and further discussion on anticoagulation treatment. Likely will need outpatient hematology. #. Presumed UTI UA suggestive, urine culture pending Patient denies any pain or burning while passing urine. Patient is on antibiotic for RLE cellulitis. #. CIERA over CKD stage III Baseline creatinine around 0.8-1 Admitting creatinine of 1.92, Resolved Monitor BMP daily and as appropriate. #. Generalized weakness #. Fall Came in with fall with no obvious injury Remains generally weak and lethargic Uses 3 L oxygen at home Admitting CT head, C-spine CT, CXR reviewed. PT/OT --> will need placement #. Other chronic medical conditions: Paroxysmal A. fib, diastolic CHF, COPD, DM on insulin therapy Continue with/resume home medications as and when appropriate. DVT prophylaxis: on heparin drip, warfarin initiated 07/29, plan to stop drip when reaching therapeutic goal INR CODE STATUS: full code. Disposition: PT/OT, CM to assist with DC planning. Inpatient rehab, expect DC in 2-3 days Admission and Anticipated Discharge Date Admission Date: July 23, 2021 Subjective Patient seen and examined at bedside as a follow-up of bilateral DVT and pulmonary embolism, RLE cellulitis, CIERA/CKD stage III. Patient was lying in bed, on 3 L nasal cannula oxygen, NAD, no new acute events overnight. Pt reports having BM yesterday but unaware of the color of the stool. Patient denies any headache/dizziness/belly pain/chest pain/palpitation/other review of symptoms. Advance deit to low fiber today, continue to monitor. Physical Exam Physical Exam: GENERAL: Alert and oriented x3. NAD, on 3L NC O2, Morbidly obese. HEENT: No pallor, no icterus. Pupils equal, round and reactive to light. Oral mucosa moist. NECK: No JVD, no neck masses. HEART: S1 and S2 heard. Regular rate and rhythm. No murmur, no gallop. RESPIRATORY SYSTEM: Normal AP diameter. No accessory muscle use. No wheezing, b/b crackles --> improving ABDOMEN: Soft, bowel sounds present, nontender, no distention. CENTRAL NERVOUS SYSTEM: No facial droop. Speech is clear. Obeys simple commands. Moves extremities. EXTREMITIES: BLE edematous, mostly non pitting. BLE chronic skin changes w/ warmth and erythema to RLE, jorge luis leg and heel. Rt heel with superficial ulcer w/ surrounding erythema/tenderness has improved Results & Data Results & Data ([facility]) Vital Signs (Past 12 Hours) Vital Signs Temp Pulse Resp BP BP Pulse Ox 07/29/21 11:14 36.5 C 70 20 112/46 L 98 07/29/21 07:23 36.8 C 66 13 129/65 98 07/29/21 04:11 36.6 C 61 24 110/75 93
[2021-07-29] MEDS: MAGNESIUM SULFATE / D5W 1 GM/100 ML BAG IV SCH ×2 (13:25→16:16)
--- NOTE | 2021-07-29 14:34 | Pharmacy Report ---
Pharmacy Glycemic Short Note 2 - Date of Service July 29, 2021 - Glycemic Short BSG Results (Last 24 hours): 07/28/21 07/28/21 07/29/21 16:22 20:47 07:21 POC Glucose 206 H 272 H 169 H 07/29/21 11:04 POC Glucose 208 H OUTPATIENT ANTIDIABETIC REGIMEN: * Novolog 10 units AC * Lantus 50 units daily ASSESSMENT: 07/29 * BSGs still mildly elevated * Fasting BSG acceptable this AM w/ 50 units basal on board - will continue the same for next 24 hrs * Post-prandial BSGs elevated 3 of 3 yesterday and again mildly elevated pre- lunch today, will increase prandial insulin dose somewhat 07/28 * T2DM/clear liq diet ordered yesterday evening * BSG's all above goal yesterday after reduction in basal insulin. * Will increase basal today and keep BID for now, but with higher dose this AM to try to get back to qAM admin as an outpatient * May need to adjust CHO ratio depending on trend in post-prandial BSG's now that diet is ordered 07/27 * BSGs fairly well controlled over last 24 hrs * Insulin needs appear to have decreased since IV heparin drip held yesterday afternoon. * Fasting BSGs at goal with 60 units basal on board. Today is Day 2 NPO status. Pt is receiving minimal dextrose from Protonix gtt. * Will scale back Lantus dosing due to risk of prolonged hypoglycemia with ongoing NPO. Will split dosing BID and dose per scale. * Continue "high" stress level Novolog dosing initially and cover Q 4 hrs for now. 07/26 * 75 year old female admitted for fall, found to have PE treated with IV heparin, now with GIB, moved to ICU yesterday, pharmacy consulted for glycemic management. * Patient hyperglycemic since admission on Lantus 50 units HS + NovoLog CF/CR 04/05 * Patient started on IV insulin infusion yesterday evening, drip rate started at 5units/hr, down to 1.9units/hr over past 3 hours, no basal insulin ordered yesterday while on insulin drip * Patient euglycemic and ready to transition back to SQ insulin * Patient currently NPO, will begin with slightly reduced Lantus dose, then add HS PRN dose tonight PLAN FOR INPATIENT GLYCEMIC CONTROL: * Basal insulin * Lantus 25 units SQ BID * Bolus insulin * NovoLog per scale ACHS * Goal Range: Low 110 mg/dL - High 140 mg/dL * Correction Factor: 15 mg/dL/unit * Nutritional / Prandial insulin per carb ratio of 1 unit per 4 grams CHO consumed
[2021-07-29] MEDS ORDERED: WARFARIN SOD 5 MG TAB PO SCH (16:00)
[2021-07-29 16:26] LABS: Hematocrit (blood only) 26.5 % (37-47); Hemoglobin 7.8 g/dL (12.0-16.0)
[2021-07-29 16:50] LABS: Partial Thromboplastin Ratio 2.4
[2021-07-29 17:05] LABS: Partial Thromboplastin Time 65.6 Seconds (21.0-31.0)
[2021-07-30] MEDS: PANTOprazole 40 MG in DEXTROSE 5% 100 ML IV SCH ×5 (00:26→20:29)
[2021-07-30] MEDS: HEPARIN SODIUM/DEXTROSE 25,000 UNITS/500 ML BAG IV SCH ×3 (02:22→10:43)
[2021-07-30 06:01] LABS: Hematocrit (blood only) 27.2 % (37-47); Hemoglobin 8.2 g/dL (12.0-16.0)
[2021-07-30 06:23] LABS: BUN Creatinine Ratio 23.1 (10-20); Calcium 8.7 mg/dl (8.5-10.1); Creatinine Clr Calc Pharmacy 57.1 ml/min; Est GFR (African American) 57.3 ml/min; Est GFR (Non-African American) 49.5 ml/min; Magnesium 1.7 mg/dl (1.7-2.4); Potassium 4.4 mmol/L (3.5-5.1)
[2021-07-30 06:28] LABS: INR 2.1 (0.9-1.1); Partial Thromboplastin Ratio 2.9; Prothrombin Time 21.5 Seconds (9.0-12.0)
[2021-07-30] MEDS: ceFAZolin 2000MG 2,000 MG/15 ML SYR IV SCH ×2 (06:41→17:27)
[2021-07-30] MEDS: INSULIN ASPART PER UNIT SC SCH ×4 (07:44→20:18)
[2021-07-30] MEDS: AMMONIUM LACTATE 12% LOTION 225 GM BTL EXT SCH ×2 (07:53→20:26)
[2021-07-30] MEDS: OMEGA-3 (PURIFIED FISH OIL) 1 GM CAP PO SCH ×2 (07:53→20:25)
[2021-07-30] MEDS: MAGNESIUM CHLORIDE 64MG DELAYED REL TAB PO SCH (07:53)
[2021-07-30] MEDS: ATORVASTATIN 20 MG TAB PO SCH (07:53)
[2021-07-30] MEDS: MICONAZOLE NITRATE POWDER 43 GM EXT SCH ×2 (07:54→20:27)
[2021-07-30] MEDS: INSULIN GLARGINE SOLOSTAR 100 UNITS/ML 3 ML PEN SC SCH ×2 (07:54→20:19)
[2021-07-30] MEDS: POTASSIUM CHLORIDE 10 MEQ TABCR PO SCH (07:58)
[2021-07-30 08:55] LABS: INR 2.5 (0.9-1.1); Prothrombin Time 24.9 Seconds (9.0-12.0)
[2021-07-30] MEDS ORDERED: Nursing to Pharmacy Communication SCH (10:45)
[2021-07-30 11:53] LABS: Albumin Level 2.9 gm/dl (3.4-5.0); Bilirubin,Total 0.2 mg/dl (0.2-1.0); Total Protein 6.4 gm/dl (6.0-8.3)
--- NOTE | 2021-07-30 12:33 | CT Scan Report ---
CT head/brain wo con CLINICAL HISTORY: acute confusion Technique: Contiguous axial CT images of the head were acquired from the base of the skull to the niranjan naldo without intravenous contrast administration. Images were viewed in brain, subdural and bone [facility]. Automated dose lowering techniques and/or adjustment according to patient size were utilized for this exam. Comparison: Comparison is made to CT head 07/23/2021 Findings: The ventricles, basal cisterns, and cerebral sulci are normal. There is no acute intracranial hemorrh age or evidence of acute territorial infarction. Neither mass effect, shift of the midline structures , nor abnormal extra-axial fluid collections are shown. Imaged portions of the paranasal sinuses and mastoid air cells are clear. The orbits appear normal. There are no acute fractures of the calvaria or scalp swelling. Impression: No acute intracranial hemorrhage, no evidence of acute territorial infarction or other acute intracra nial disease process. ACT 112: Negative or not required by law. Electronically signed by: Jese Oviedo M.D. 07/30/2021 12:32 PM
[2021-07-30 15:53] LABS: Hematocrit (blood only) 26.1 % (37-47); Hemoglobin 7.7 g/dL (12.0-16.0)
[2021-07-30] MEDS ORDERED: WARFARIN SOD 1 MG TAB PO SCH (16:00)
[2021-07-30] MEDS ORDERED: WARFARIN SOD 2 MG TAB PO SCH (16:00)
--- NOTE | 2021-07-30 17:44 | Hospitalist Progress Note ---
Date of Service July 30, 2021 Assessment & Plan (1) Sepsis: (2) Pulmonary embolism: Plan: 74 years old and morbidly obese female w/ PMH of KENAN, paroxysmal atrial fibrillation, type 2 diabetes on insulin, hypertension, diastolic CHF, hyperlipidemia, GERD, pulmonary hypertension, apparently was brought into the ER 07/23 by the EMS following a fall at home. She lives with her son who found her in between bed and dresser after coming back from work. She is being managed for the following: #. GI bleed 07/25, likely upper #. Acute blood loss anemia: / above Patient reports having no GI doctor as an outpatient, denies any colonoscopy in the past Patient also denies any gastritis/indigestion/reflux symptoms in the past. Patient has been on heparin drip for dvt and PE since 2 days as of 07/25 Per RN no BM overnight and in the morning, patient not able to tell. Lately. s/p 1 unit, Hb stable lately. HnH Q8H, warfarin initiated at 5 mg dose 07/29, INR elevated to 2.1 on 07/30. Repeat INR sent for concern of lab error which came back 2.5. Warfarin dose dec reased to 1 mg daily 07/30. Transition IV PPI drip to p.o. twice daily for 8 weeks tomorrow. GI: EGD scope 07/27 with 2 superficial ulcers in duodenal bulb, larger one empirically clipped. Continue with anticoagulation. #. Pulmonary edema - likely iatrogenic Patient oxygen at home 3 L per patient Patient currently on 3 L but seems to have labored breathing today Patient has got multiple fluids and blood transfusion. Repeat CXR 07/26 reveals increasing vascular congestion in the lungs. 07/26/21 echo [due to PE]: Ejection fraction 60 to 65% with normal left ventricular structure and function. Moderate concentric LVH. s/p small dose iv lasix on 07/26, pt doing well, closely monitor for volume overload. #. Cellulitis RLE #. Sepsis POA: At presentation, tachycardic and with elevated WBC on the background of RLE cellulitis. Febrile but temperature below 38 degree C Resolved Patient has history of BLE cellulitis. On exam, chronic BLE skin changes/edematous, mostly non pitting. --> Lac hydrin lotion. Patient does have right heel superficial ulcer with surrounding erythema and tenderness, likely source of RLE cellulitis --> improved redness and tenderness 07/25 CT Rt foot:11mm skin ulceration w/ cellulitis, no evidence of OM/abscess Admitting blood culture- NG for 5 days. Admitting pro-Efraín 13.45 Wound care nurse on board, appreciate recommendation. Patient afebrile, WBC normal. ID evaluated: Cefepime 07/24 --> cefazolin 07/25. F/u final cultures. Pt will need OP wound care f/u. Pt made aware #. Bilateral DVT #. Pulmonary embolism: likely secondary to above Patient has shortness of breath on presentation with tachycardia. Admitting bilateral venous Doppler: Positive for nonocclusive DVT Admitting CTA chest: Positive for right sided PE, no evidence of right heart strain noted. Heparin drip (see above); Pt agreed to coumadin --> started 07/29, f/u PT/INR daily, goal INR 2-3. c/w heparin drip, Hb has stayed stable. 07/27 vascular surgery evaluated, no IVC filter recommendation at this time, reach out if further significant bleeding occurs. Will need to be in touch with PCP for anticoagulation work-up and further discussion on anticoagulation treatment. Likely will need outpatient hematology. #. Presumed UTI UA suggestive, urine culture pending Patient denies any pain or burning while passing urine. Patient is on antibiotic for RLE cellulitis. #. CIERA over CKD stage III Baseline creatinine around 0.8-1 Admitting creatinine of 1.92, Resolved Monitor BMP daily and as appropriate. #. Generalized weakness #. Fall Came in with fall with no obvious injury Remains generally weak and lethargic Uses 3 L oxygen at home Admitting CT head, C-spine CT, CXR reviewed. PT/OT --> will need placement #. Other chronic medical conditions: Paroxysmal A. fib, diastolic CHF, COPD, DM on insulin therapy Continue with/resume home medications as and when appropriate. DVT prophylaxis: on heparin drip, warfarin initiated 07/29, plan to stop drip when reaching therapeutic goal INR CODE STATUS: full code. Disposition: PT/OT, CM to assist with DC planning. Inpatient rehab, expect DC in 2-3 days Admission and Anticipated Discharge Date Admission Date: July 23, 2021 Subjective Patient seen and examined at bedside as a follow-up of bilateral DVT and pulmonary embolism, RLE cellulitis, CIERA/CKD stage III. Patient was lying in bed, on 3 L nasal cannula oxygen, NAD. Per RN no new acute events overnight, patient was confused in the morning. Patient eating okay though. CT head and NH3 level sent and reviewed, both wnl. Could be mutlifactorial including hospitalization status, multiple comorbidities. Will continue to monitor. Patient reports feeling tired today and was appearing sleepy, not oriented, denied any pain or discomfort. Patient denies any headache/belly pain/chest pain/palpitation/other review of symptoms. Continue with low fiber diet for now. Physical Exam Physical Exam: GENERAL: Drowsy, Oriented x 0. NAD, on 3L NC O2, Morbidly obese. HEENT: No pallor, no icterus. Pupils equal, round and reactive to light. Oral mucosa moist. NECK: No JVD, no neck masses. HEART: S1 and S2 heard. Regular rate and rhythm. No murmur, no gallop. RESPIRATORY SYSTEM: Normal AP diameter. No accessory muscle use. No wheezing, b/b crackles --> improving ABDOMEN: Soft, bowel sounds present, nontender, no distention. CENTRAL NERVOUS SYSTEM: No facial droop. Speech is clear. Obeys simple commands. Moves extremities. EXTREMITIES: BLE edematous, mostly non pitting. BLE chronic skin changes w/ warmth and erythema to RLE (which has improved), jorge luis leg and heel. Rt heel with superficial ulcer w/ surrounding erythema/tenderness has improved Results & Data Results & Data ([facility]) Vital Signs (Past 12 Hours) Vital Signs Temp Pulse Pulse Pulse Resp BP Pulse Ox 07/30/21 15:55 36.9 C 75 18 116/68 92 07/30/21 11:49 36.7 C 74 16 111/68 96 07/30/21 09:00 74 07/30/21 07:52 36.9 C 73 24 117/57 L 98
[2021-07-30 19:57] LABS: Hematocrit (blood only) 26.2 % (37-47); Hemoglobin 7.9 g/dL (12.0-16.0)
[2021-07-31] MEDS: PANTOprazole 40 MG in DEXTROSE 5% 100 ML IV SCH ×2 (02:00→09:54)
[2021-07-31] MEDS: ceFAZolin 2000MG 2,000 MG/15 ML SYR IV SCH ×2 (06:51→16:49)
[2021-07-31 06:54] LABS: Hematocrit (blood only) 27.2 % (37-47); Hemoglobin 8.2 g/dL (12.0-16.0)
[2021-07-31 07:27] LABS: BUN Creatinine Ratio 22.1 (10-20); Calcium 8.9 mg/dl (8.5-10.1); Est GFR (African American) 54.3 ml/min; Est GFR (Non-African American) 46.8 ml/min; Magnesium 1.5 mg/dl (1.7-2.4); Potassium 4.4 mmol/L (3.5-5.1)
[2021-07-31 07:35] LABS: Prothrombin Time 58.2 Seconds (9.0-12.0)
[2021-07-31] MEDS ORDERED: PHYTONADIONE 2.5 MG in DEXTROSE 5% 50 ML IV ONE (08:10)
[2021-07-31] MEDS: INSULIN ASPART PER UNIT SC SCH ×4 (08:31→21:53)
[2021-07-31] MEDS: MAGNESIUM CHLORIDE 64MG DELAYED REL TAB PO SCH (08:39)
[2021-07-31] MEDS: ATORVASTATIN 20 MG TAB PO SCH (08:39)
[2021-07-31] MEDS: OMEGA-3 (PURIFIED FISH OIL) 1 GM CAP PO SCH ×2 (08:39→21:54)
[2021-07-31] MEDS: AMMONIUM LACTATE 12% LOTION 225 GM BTL EXT SCH ×2 (08:39→21:54)
[2021-07-31] MEDS: MICONAZOLE NITRATE POWDER 43 GM EXT SCH ×2 (08:39→21:55)
[2021-07-31] MEDS: INSULIN GLARGINE SOLOSTAR 100 UNITS/ML 3 ML PEN SC SCH ×2 (08:39→21:55)
[2021-07-31] MEDS: POTASSIUM CHLORIDE 10 MEQ TABCR PO SCH (08:46)
[2021-07-31] MEDS: PANTOprazole 40 MG TAB PO SCH ×2 (09:20→21:55)
[2021-07-31] MEDS: ACETAMINOPHEN 325 MG TAB PO PRN (09:20)
[2021-07-31] MEDS: MAGNESIUM SULFATE / D5W 1 GM/100 ML BAG IV SCH ×2 (09:21→11:39)
--- NOTE | 2021-07-31 11:36 | Pharmacy Report ---
Pharmacy Glycemic Short Note 2 - Date of Service July 31, 2021 - Glycemic Short BSG Results (Last 24 hours): 07/30/21 07/30/21 07/31/21 16:22 20:03 05:59 Glucose 106 H POC Glucose 163 H 154 H 07/31/21 07/31/21 07:32 11:26 Glucose POC Glucose 182 H 217 H OUTPATIENT ANTIDIABETIC REGIMEN: * Novolog 10 units AC * Lantus 50 units daily ASSESSMENT: 07/31 * BSGs well controlled yesterday with current regimen * Fasting BSG 182 with 50 units basal on board. Of note, yesterday's fasting BSG 144 on same Lantus dose. GLU on this AM's chemistry 106. Will not increase basal insulin dose in response to today's fasting BSG. * All post-prandial BSGs at goal yesterday. Today's prelunch BSG elevated, however, considering pre-breakfast BSG was elevated the climb in BSG was not substantial. Will continue same CF and CR, plan to trend post-prandial BSGs 07/29 * BSGs still mildly elevated * Fasting BSG acceptable this AM w/ 50 units basal on board - will continue the same for next 24 hrs * Post-prandial BSGs elevated 3 of 3 yesterday and again mildly elevated pre- lunch today, will increase prandial insulin dose somewhat 07/28 * T2DM/clear liq diet ordered yesterday evening * BSG's all above goal yesterday after reduction in basal insulin. * Will increase basal today and keep BID for now, but with higher dose this AM to try to get back to qA admin as an outpatient * May need to adjust CHO ratio depending on trend in post-prandial BSG's now that diet is ordered 07/27 * BSGs fairly well controlled over last 24 hrs * Insulin needs appear to have decreased since IV heparin drip held yesterday afternoon. * Fasting BSGs at goal with 60 units basal on board. Today is Day 2 NPO status. Pt is receiving minimal dextrose from Protonix gtt. * Will scale back Lantus dosing due to risk of prolonged hypoglycemia with ongoing NPO. Will split dosing BID and dose per scale. * Continue "high" stress level Novolog dosing initially and cover Q 4 hrs for now. PLAN FOR INPATIENT GLYCEMIC CONTROL: * Basal insulin * Lantus 25 units SQ BID * Bolus insulin * NovoLog per scale ACHS * Goal Range: Low 110 mg/dL - High 140 mg/dL * Correction Factor: 12 mg/dL/unit * Nutritional / Prandial insulin per carb ratio of 1 unit per 4 grams CHO consumed
[2021-07-31 14:37] LABS: INR 2.2 (0.9-1.1); Prothrombin Time 22.5 Seconds (9.0-12.0)
--- NOTE | 2021-07-31 16:29 | Hospitalist Progress Note ---
Date of Service July 31, 2021 Assessment & Plan (1) Sepsis: (2) Pulmonary embolism: Plan: 74 years old and morbidly obese female w/ PMH of KENAN, paroxysmal atrial fibrillation, type 2 diabetes on insulin, hypertension, diastolic CHF, hyperlipidemia, GERD, pulmonary hypertension, apparently was brought into the ER 07/23 by the EMS following a fall at home. She lives with her son who found her in between bed and dresser after coming back from work. She is being managed for the following: #. GI bleed 07/25, likely upper #. Acute blood loss anemia: 2/2 above Patient reports having no GI doctor as an outpatient, denies any colonoscopy in the past Patient also denies any gastritis/indigestion/reflux symptoms in the past. Patient has been on heparin drip for dvt and PE since 2 days as of 07/25 Per Pt no BM yesterday and today s/p 1 unit, Hb stable lately. HnH Q12H and as appropriate Anticoagulation: While on heparin drip, Warfarin initiated at 5 mg dose on 07/29 INR >2.0 on 07/30 AM, Coumadin dose decreased to 1 mg on 07/30 INR 6.0 on 07/31 AM, iv 2.5 mg Vit K given, d/w with Dr. Thomas about the situation, PT/INR repeated at 4 hour of iv vit K, INR came back 2.2 Will hold today's coumadin dose, f/u INR seb and start at may be 0.5 mg dose and closely monitor Pt not sure when her prior coumadin was stopped and why it was stopped, pt not able to tell what dose she was on or what color were the pills Upon looking into [facility] EMR, it can be seen that she was on coumadin upto 5 mg at one time. PPI drip transitioned to PO today. GI: EGD scope 07/27 with 2 superficial ulcers in duodenal bulb, larger one empirically clipped. Continue with anticoagulation. continue to monitor #. Pulmonary edema - likely iatrogenic Patient oxygen at home 3 L per patient Patient currently on 3 L but seems to have labored breathing today Patient has got multiple fluids and blood transfusion. Repeat CXR 07/26 reveals increasing vascular congestion in the lungs. 07/26/21 echo [due to PE]: Ejection fraction 60 to 65% with normal left ventricular structure and function. Moderate concentric LVH. s/p small dose iv lasix on 07/26, pt doing well, closely monitor for volume overload. #. Cellulitis RLE #. Sepsis POA: At presentation, tachycardic and with elevated WBC on the background of RLE cellulitis. Febrile but temperature below 38 degree C Resolved Patient has history of BLE cellulitis. On exam, chronic BLE skin changes/edematous, mostly non pitting. --> Lac hydrin lotion. Patient does have right heel superficial ulcer with surrounding erythema and tenderness, likely source of RLE cellulitis --> improved redness and tenderness 07/25 CT Rt foot:11mm skin ulceration w/ cellulitis, no evidence of OM/abscess Admitting blood culture- NG for 5 days. Admitting pro-Erfaín 13.45 Wound care nurse on board, appreciate recommendation. Patient afebrile, WBC normal. ID evaluated: Cefepime 07/24 --> cefazolin 07/25. F/u final cultures. Pt will need OP wound care f/u. Pt made aware #. Bilateral DVT #. Pulmonary embolism: likely secondary to above Patient has shortness of breath on presentation with tachycardia. Admitting bilateral venous Doppler: Positive for nonocclusive DVT Admitting CTA chest: Positive for right sided PE, no evidence of right heart str ain noted. Anticoagulation (see above), Hb has stayed stable. 07/27 vascular surgery evaluated, no IVC filter recommendation at this time, reach out if further significant bleeding occurs. Will need to be in touch with PCP for anticoagulation work-up and further discussion on anticoagulation treatment. Likely will need outpatient hematology. #. Presumed UTI UA suggestive, urine culture pending Patient denies any pain or burning while passing urine. Patient is on antibiotic for RLE cellulitis. #. CIERA over CKD stage III Baseline creatinine around 0.8-1 Admitting creatinine of 1.92, Resolved Monitor BMP daily and as appropriate. #. Generalized weakness #. Fall Came in with fall with no obvious injury Remains generally weak and lethargic Uses 3 L oxygen at home Admitting CT head, C-spine CT, CXR reviewed. PT/OT --> will need placement #. Other chronic medical conditions: Paroxysmal A. fib, diastolic CHF, COPD, DM on insulin therapy Continue with/resume home medications as and when appropriate. DVT prophylaxis: on coumadin (see above) CODE STATUS: full code. Disposition: PT/OT, CM to assist with DC planning. Inpatient rehab, expect DC in 2-3 days Admission and Anticipated Discharge Date Admission Date: July 23, 2021 Subjective Patient seen and examined at bedside as a follow-up of bilateral DVT and pulmonary embolism, RLE cellulitis, CIERA/CKD stage III. Patient was lying in bed, on 3 L nasal cannula oxygen, NAD. Patient reports no bowel movement yesterday and today. Patient is alert and oriented x3 today. Patient reports feeling better today. Patient denies any headache/belly pain/chest pain/palpitation/other review of symptoms. Patient tolerating diet well. Physical Exam Physical Exam: GENERAL: Alert and oriented x3. NAD, on 3L NC O2, Morbidly obese. HEENT: No pallor, no icterus. Pupils equal, round and reactive to light. Oral mucosa moist. NECK: No JVD, no neck masses. HEART: S1 and S2 heard. Regular rate and rhythm. No murmur, no gallop. RESPIRATORY SYSTEM: Normal AP diameter. No accessory muscle use. No wheezing, b/b crackles --> improving ABDOMEN: Soft, bowel sounds present, nontender, no distention. CENTRAL NERVOUS SYSTEM: No facial droop. Speech is clear. Obeys simple commands. Moves extremities. EXTREMITIES: BLE edematous, mostly non pitting. BLE chronic skin changes w/ warmth and erythema to RLE (which has improved), jorge luis leg and heel. Rt heel with superficial ulcer w/ surrounding erythema/tenderness which has improved Results & Data Results & Data ([facility]) Vital Signs (Past 12 Hours) Vital Signs Temp Pulse Pulse Resp BP Pulse Ox 07/31/21 16:14 36.7 C 71 19 136/75 96 07/31/21 14:20 76 07/31/21 12:47 36.4 C L 83 23 121/74 99 07/31/21 07:42 36.8 C 84 20 152/76 H 98 07/31/21 06:20 72
[2021-07-31 22:27] LABS: Hematocrit (blood only) 29.2 % (37-47); Hemoglobin 8.7 g/dL (12.0-16.0)
[2021-08-01] MEDS: ceFAZolin 2000MG 2,000 MG/15 ML SYR IV SCH ×2 (05:33→10:26)
[2021-08-01 06:19] LABS: Hematocrit (blood only) 28.3 % (37-47); Hemoglobin 8.2 g/dL (12.0-16.0); Mean Corpuscular Hemoglobin 28.6 pg (25-34); Mean Corpuscular Volume 98.6 fL (80-100); Nucleated RBC # (auto) 0.13 K/uL (0-0); Nucleated RBC % (auto) 1.4 %; Platelet Count 561 K/uL (130-400); RDW Coefficient of Variation 15.3 % (11.5-14.5); RDW Standard Deviation 54.4 fL (36.4-46.3); Red Blood Count 2.87 M/uL (4.2-5.4); White Blood Count 9.57 K/uL (4.8-10.8)
[2021-08-01 06:33] LABS: INR 1.3 (0.9-1.1); Prothrombin Time 13.4 Seconds (9.0-12.0)
[2021-08-01 06:47] LABS: BUN Creatinine Ratio 29.2 (10-20); Creatinine Clr Calc Pharmacy 59.1 ml/min; Est GFR (African American) 58.7 ml/min; Est GFR (Non-African American) 50.6 ml/min; Magnesium 1.7 mg/dl (1.7-2.4); Potassium 4.6 mmol/L (3.5-5.1)
[2021-08-01] MEDS: AMMONIUM LACTATE 12% LOTION 225 GM BTL EXT SCH ×2 (08:34→20:47)
[2021-08-01] MEDS: PANTOprazole 40 MG TAB PO SCH ×2 (08:35→20:47)
[2021-08-01] MEDS: OMEGA-3 (PURIFIED FISH OIL) 1 GM CAP PO SCH ×2 (08:35→20:46)
[2021-08-01] MEDS: ATORVASTATIN 20 MG TAB PO SCH (08:35)
[2021-08-01] MEDS: MAGNESIUM CHLORIDE 64MG DELAYED REL TAB PO SCH (08:35)
[2021-08-01] MEDS: MICONAZOLE NITRATE POWDER 43 GM EXT SCH ×2 (08:41→20:47)
[2021-08-01] MEDS: INSULIN ASPART PER UNIT SC SCH ×4 (08:45→20:54)
[2021-08-01] MEDS: INSULIN GLARGINE SOLOSTAR 100 UNITS/ML 3 ML PEN SC SCH ×2 (08:46→20:55)
[2021-08-01] MEDS: POTASSIUM CHLORIDE 10 MEQ TABCR PO SCH (10:26)
--- NOTE | 2021-08-01 15:17 | Hospitalist Progress Note ---
Date of Service August 01, 2021 Assessment & Plan (1) Sepsis: (2) Pulmonary embolism: Plan: 74 years old and morbidly obese female w/ PMH of KENAN, paroxysmal atrial fibrillation, type 2 diabetes on insulin, hypertension, diastolic CHF, hyperlipidemia, GERD, pulmonary hypertension, apparently was brought into the ER 07/23 by the EMS following a fall at home. She lives with her son who found her in between bed and dresser after coming back from work. She is being managed for the following: GI bleed 07/25,EGD scope 07/27 with 2 superficial ulcers in duodenal bulb, larger one empirically Acute blood loss anemia: 2/ above Patient reports having no GI doctor as an outpatient, denies any colonoscopy in the past Patient has been on heparin drip for dvt and PE for 2 days as of 07/25 Hemoglobin dropped to 7.3 on 07/25 from 11.1 on admission s/p 1 unit, Hb stable lately. HnH Q12H and as appropriate-hemoglobin remains stable as of 08/01/2021 at 8.2 Anticoagulation: While on heparin drip, Warfarin initiated at 5 mg dose on 07/29 INR >2.0 on 07/30 AM, Coumadin dose decreased to 1 mg on 07/30 INR 6.0 on 07/31 AM, iv 2.5 mg Vit K given, d/w with Dr. Thomas about the situation, PT/INR repeated at 4 hour of iv vit K, INR came back 2.2 INR today is 1.3 and will restart Coumadin at 1 mg daily PPI drip transitioned to PO on 07/31/2021. GI: EGD scope 07/27 with 2 superficial ulcers in duodenal bulb, larger one empi rically clipped. Continue with anticoagulation. continue to monitor Pulmonary edema - likely iatrogenic Patient oxygen at home 3 L per patient Patient currently on 3 L but seems to have labored breathing today Patient has got multiple fluids and blood transfusion. Repeat CXR 07/26 reveals increasing vascular congestion in the lungs. 07/26/21 echo [due to PE]: Ejection fraction 60 to 65% with normal left ventricular structure and function. Moderate concentric LVH. s/p small dose iv lasix on 07/26, pt doing well, closely monitor for volume overload. Cellulitis RLE Sepsis POA: At presentation, tachycardic and with elevated WBC on the background of RLE cellulitis. Febrile but temperature below 38 degree C Resolved Patient has history of BLE cellulitis. On exam, chronic BLE skin changes/edematous, mostly non pitting. --> Lac hydrin lotion. Patient does have right heel superficial ulcer with surrounding erythema and tenderness, likely source of RLE cellulitis --> improved redness and tenderness 07/25 CT Rt foot:11mm skin ulceration w/ cellulitis, no evidence of OM/abscess Admitting blood culture- NG for 5 days. Admitting pro-Efraín 13.45 Wound care nurse on board, appreciate recommendation. Patient afebrile, WBC normal. ID evaluated: Cefepime 07/24 --> cefazolin 07/25-we will continue to finish 14 days course of antibiotic F/u final cultures. Pt will need OP wound care f/u. Pt made aware Bilateral DVT Pulmonary embolism: likely secondary to above Patient has shortness of breath on presentation with tachycardia. Admitting bilateral venous Doppler: Positive for nonocclusive DVT Admitting CTA chest: Positive for right sided PE, no evidence of right heart strain noted. Anticoagulation (see above), Hb has stayed stable. 07/27 vascular surgery evaluated, no IVC filter recommendation at this time, reach out if further significant bleeding occurs. Will need to be in touch with PCP for anticoagulation work-up and further discussion on anticoagulation treatment. Likely will need outpatient hematology. Presumed UTI UA suggestive, urine culture pending Patient denies any pain or burning while passing urine. Patient is on antibiotic for RLE cellulitis. CIERA over CKD stage III Baseline creatinine around 0.8-1 Admitting creatinine of 1.92, Resolved Monitor BMP daily and as appropriate. Generalized weakness Fall Came in with fall with no obvious injury Remains generally weak and lethargic Uses 3 L oxygen at home Admitting CT head, C-spine CT, CXR reviewed. PT/OT --> will need placement Other chronic medical conditions: Paroxysmal A. fib, diastolic CHF, COPD, DM on insulin therapy Continue with/resume home medications as and when appropriate. DVT prophylaxis: on coumadin (see above) CODE STATUS: full code. Disposition: PT/OT, CM to assist with DC planning. Admission and Anticipated Discharge Date Admission Date: July 23, 2021 Subjective 08/02/2011 The patient was seen and examined in telemetry unit She has been feeling much better but has not been coming out of bed due to leg pain to participate in physical therapy Denies any acute symptoms in bed She was strongly advised to participate in physical therapy to get better Review of Systems Review of Systems: All systems reviewed and are unremarkable except as noted below Physical Exam Physical Exam: Lying in bed without any shortness of breath or any other distress Constitutional: well developed, well nourished and + morbidly obese; not ill appearing Eyes: PERRL, conjunctivae normal, anicteric sclerae ENMT: external ear and nose normal, oropharynx normal Neck: trachea midline, no thyromegaly Respiratory: no respiratory distress Auscultation: + diminished lung sounds and + crackles (Minimal crackles at the bases); no wheezes Cardiovascular: Rate/Rhythm: regular rate, regular rhythm and + tachycardic Heart Sounds: normal S1, normal S2 and + murmur (2/6 ESM over precordium) Extremities: + edema (Bilateral 1-2+ leg edema with chronic skin changes and cellulitis) Gastrointestinal (Abdomen): Inspection/Auscultation: + abdomen distended and normal bowel sounds Percussion/Palpation: abdomen soft; abdomen nontender Musculoskeletal: No acute arthritis in any joint Neurologic: Alert and awake. Generally weak without any focal neuro deficit Results & Data Results & Data ([facility]) Vital Signs (Past 12 Hours) Vital Signs Temp Pulse Pulse Resp BP BP Pulse Ox 08/01/21 11:08 36.7 C 75 23 131/59 L 99 08/01/21 07:16 36.9 C 72 25 H 141/65 H 99 08/01/21 06:15 72 08/01/21 03:50 36.5 C 72 20 129/66 99 Laboratory Results Short CBC 07/31/21 08/01/21 Range/Units 22:08 05:56 WBC 9.57 (4.8-10.8) K/uL Hgb 8.7 L 8.2 L (12.0-16.0) g/dL Hct 29.2 L 28.3 L (37-47) % Plt Count 561 H (130-400) K/uL BMP 08/01/21 05:56 Sodium 137 Potassium 4.6 Chloride 98 Carbon Dioxide 36 H BUN 31 H Creatinine 1.06 Glucose 150 H Calcium 9.0 Medications Administered Current Inpatient Medications Acetaminophen (Acetaminophen 325 Mg Tab) 650 mg PO Q6H PRN PRN Reason: Fever/pain Stop: 08/23/21 03:15 Last Admin: 07/31/21 09:20 Dose: 650 mg Documented by: Atorvastatin Calcium (Atorvastatin 20 Mg Tab) 20 mg PO DAILY SIMEON Stop: 08/23/21 08:59 Last Admin: 08/01/21 08:35 Dose: 20 mg Documented by: Dextrose (Dextrose 50% 50 Ml Syringe) 25 - 50 ml IV UD PRN; Protocol PRN Reason: Hypoglycemia Protocol Stop: 08/22/21 19:59 Fish Oil (Ellery-3 (Purified Fish Oil) 1 Gm Cap) 1 gm PO BID SIMEON Stop: 08/22/21 20:59 Last Admin: 08/01/21 08:35 Dose: 1 gm Documented by: Glucagon (Glucagon For Inj 1 Mg Vial) 1 mg IM UD PRN; Protocol PRN Reason: Hypoglycemia Protocol Stop: 08/22/21 19:59 Glucose (Glucose 40% Gel 15 Gm Tube) 15 - 30 gm PO UD PRN; Protocol PRN Reason: Hypoglycemia Protocol Stop: 08/22/21 19:59 Glucose (Glucose 10 Tabs/Tube) 4 - 8 tabs PO UD PRN; Protocol PRN Reason: Hypoglycemia Protocol Stop: 08/22/21 19:59 Cefazolin Sodium (Ancef 2000mg) 2,000 mg in 15 mls @ 3.75 mls/min IV Q12H SIMEON; Protocol Stop: 08/01/21 17:29 Last Admin: 08/01/21 10:26 Dose: 3.75 mls/min Documented by: Insulin Aspart (Insulin Aspart Per Unit) 0 units SC ACHS [facility] Stop: 08/25/21 11:59 Last Admin: 08/01/21 12:11 Dose: 18 units Documented by: Insulin Glargine (Insulin Glargine Solostar 100 Units/Ml 3 Ml Pen) 25 units SC BID [facility]; Protocol Stop: 08/28/21 08:59 Last Admin: 08/01/21 08:46 Dose: 25 units Documented by: Lactic Acid (Ammonium Lactate 12% Lotion 225 Gm Btl) 1 gm EXT BID [facility] Stop: 08/23/21 20:59 Last Admin: 08/01/21 08:34 Dose: 1 gm Documented by: Magnesium Chloride (Magnesium Chloride 64mg Delayed Rel Tab) 64 mg PO DAILY [facility] Stop: 08/23/21 08:59 Last Admin: 08/01/21 08:35 Dose: 64 mg Documented by: Miconazole Nitrate (Miconazole Nitrate Powder 43 Gm) 1 appln EXT BID [facility] Stop: 08/23/21 06:24 Last Admin: 08/01/21 08:41 Dose: 1 appln Documented by: Miscellaneous (Carbohydrates For Hypoglycemia ) 15 - 30 gm PO UD PRN PRN Reason: Hypoglycemia Treatment Stop: 08/22/21 19:59 Miscellaneous Information (Pharmacy Glycemic Mgmt Consult) 1 ea N/A UD PRN PRN Reason: Consult Stop: 08/24/21 17:37 Pantoprazole Sodium (Pantoprazole 40 Mg Tab) 40 mg PO BID [facility] Stop: 08/30/21 08:59 Last Admin: 08/01/21 08:35 Dose: 40 mg Documented by: Potassium Chloride (Potassium Chloride 10 Meq Tabcr) 10 meq PO DAILY [facility] Stop: 08/23/21 08:59 Last Admin: 08/01/21 10:26 Dose: 10 meq Documented by: Warfarin Sodium (Warfarin Sod 1 Mg Tab) 1 mg PO DAILY@1600 [facility] Stop: 08/29/21 15:59 Last Admin: 07/30/21 15:59 Dose: 1 mg Documented by:
[2021-08-01] MEDS: ACETAMINOPHEN 325 MG TAB PO PRN (17:02)
[2021-08-02 06:17] LABS: INR 1.2 (0.9-1.1); Prothrombin Time 12.9 Seconds (9.0-12.0)
[2021-08-02 06:27] LABS: Calcium 8.9 mg/dl (8.5-10.1); Creatinine Clr Calc Pharmacy 64.3 ml/min; Est GFR (African American) 65.3 ml/min; Est GFR (Non-African American) 56.3 ml/min; Potassium 4.7 mmol/L (3.5-5.1)
[2021-08-02] MEDS: INSULIN ASPART PER UNIT SC SCH ×4 (08:57→20:17)
[2021-08-02] MEDS: INSULIN GLARGINE SOLOSTAR 100 UNITS/ML 3 ML PEN SC SCH ×2 (08:57→20:18)
[2021-08-02] MEDS: ATORVASTATIN 20 MG TAB PO SCH (09:17)
[2021-08-02] MEDS: POTASSIUM CHLORIDE 10 MEQ TABCR PO SCH (09:17)
[2021-08-02] MEDS: MAGNESIUM CHLORIDE 64MG DELAYED REL TAB PO SCH (09:17)
[2021-08-02] MEDS: PANTOprazole 40 MG TAB PO SCH ×2 (09:17→20:17)
[2021-08-02] MEDS: OMEGA-3 (PURIFIED FISH OIL) 1 GM CAP PO SCH ×2 (09:18→20:17)
[2021-08-02] MEDS: MICONAZOLE NITRATE POWDER 43 GM EXT SCH ×2 (09:18→20:18)
[2021-08-02] MEDS: AMMONIUM LACTATE 12% LOTION 225 GM BTL EXT SCH ×2 (09:18→20:18)
--- NOTE | 2021-08-02 13:11 | Hospitalist Progress Note ---
Date of Service August 02, 2021 Assessment & Plan (1) Sepsis: (2) Pulmonary embolism: Plan: 74 years old and morbidly obese female w/ PMH of KENAN, paroxysmal atrial fibrillation, type 2 diabetes on insulin, hypertension, diastolic CHF, hyperlipidemia, GERD, pulmonary hypertension, apparently was brought into the ER 07/23 by the EMS following a fall at home. She lives with her son who found her in between bed and dresser after coming back from work. She is being managed for the following: GI bleed 07/25,EGD scope 07/27 with 2 superficial ulcers in duodenal bulb, larger one empirically Acute blood loss anemia: / above Patient reports having no GI doctor as an outpatient, denies any colonoscopy in the past Patient has been on heparin drip for dvt and PE for 2 days as of 07/25 Hemoglobin dropped to 7.3 on 07/25 from 11.1 on admission s/p 1 unit, Hb stable lately. HnH Q12H and as appropriate-hemoglobin remains stable as of 08/01/2021 at 8.2 Anticoagulation: While on heparin drip, Warfarin initiated at 5 mg dose on 07/29 INR >2.0 on 07/30 AM, Coumadin dose decreased to 1 mg on 07/30 INR 6.0 on 07/31 AM, iv 2.5 mg Vit K given, d/w with Dr. Thomas about the situation, PT/INR repeated at 4 hour of iv vit K, INR came back 2.2 INR today is 1.3 and will restart Coumadin at 1 mg daily PPI drip transitioned to PO on 07/31/2021. GI: EGD scope 07/27 with 2 superficial ulcers in duodenal bulb, larger one empi rically clipped. Continue with anticoagulation. continue to monitor-hemoglobin remains stable at 8.2 Pulmonary edema - likely iatrogenic Patient oxygen at home 3 L per patient Patient currently on 3 L but seems to have labored breathing today Patient has got multiple fluids and blood transfusion. Repeat CXR 07/26 reveals increasing vascular congestion in the lungs. 07/26/21 echo [due to PE]: Ejection fraction 60 to 65% with normal left ventricular structure and function. Moderate concentric LVH. s/p small dose iv lasix on 07/26, pt doing well, closely monitor for volume overload. No signs and/or symptoms of fluid overload Cellulitis RLE Sepsis POA: At presentation, tachycardic and with elevated WBC on the background of RLE cellulitis. Febrile but temperature below 38 degree C Resolved Patient has history of BLE cellulitis. On exam, chronic BLE skin changes/edematous, mostly non pitting. --> Lac hydrin lotion. Patient does have right heel superficial ulcer with surrounding erythema and tenderness, likely source of RLE cellulitis --> improved redness and tenderness 07/25 CT Rt foot:11mm skin ulceration w/ cellulitis, no evidence of OM/abscess Admitting blood culture- NG for 5 days. Admitting pro-Efraín 13.45 Wound care nurse on board, appreciate recommendation. Patient afebrile, WBC normal. ID evaluated: Cefepime 07/24 --> cefazolin 07/25-we will continue to finish 14 days course of antibiotic Pt will need OP wound care f/u. Pt made aware Bilateral DVT Pulmonary embolism: likely secondary to above Patient has shortness of breath on presentation with tachycardia. Admitting bilateral venous Doppler: Positive for nonocclusive DVT Admitting CTA chest: Positive for right sided PE, no evidence of right heart strain noted. Anticoagulation (see above), Hb has stayed stable. 07/27 vascular surgery evaluated, no IVC filter recommendation at this time, reach out if further significant bleeding occurs. Will need to be in touch with PCP for anticoagulation work-up and further discussion on anticoagulation treatment. Likely will need outpatient hematology. INR is not yet therapeutic is 1.2 as of today Presumed UTI UA suggestive, urine culture pending Patient denies any pain or burning while passing urine. Patient is on antibiotic for RLE cellulitis. CIERA over CKD stage III Baseline creatinine around 0.8-1 Admitting creatinine of 1.92, Resolved Monitor BMP daily and as appropriate. Generalized weakness Fall Came in with fall with no obvious injury Remains generally weak and lethargic Uses 3 L oxygen at home Admitting CT head, C-spine CT, CXR reviewed. PT/OT evaluation tomorrow Other chronic medical conditions: Paroxysmal A. fib, diastolic CHF, COPD, DM on insulin therapy Continue with/resume home medications as and when appropriate. DVT prophylaxis: on coumadin (see above) INR is 1.2 today, will give 2.5 mg of Coumadin today CODE STATUS: full code. Disposition: PT/OT, CM to assist with DC planning. Admission and Anticipated Discharge Date Admission Date: July 23, 2021 Subjective 08/01/2021 The patient was seen and examined in telemetry unit She has been feeling much better but has not been coming out of bed due to leg pain to participate in physical therapy Denies any acute symptoms in bed She was strongly advised to participate in physical therapy to get better 08/02/2021 The patient was seen and examined in telemetry unit She has been feeling much better but has not had PT and OT evaluation is Denies any significant symptoms in bed Review of Systems Review of Systems: All systems reviewed and are unremarkable except as noted below Musculoskeletal: No acute arthritis in any joint Physical Exam Physical Exam: Lying in bed without any shortness of breath or any other distress Constitutional: well developed, well nourished and + morbidly obese; not ill appearing Eyes: PERRL, conjunctivae normal, anicteric sclerae ENMT: external ear and nose normal, oropharynx normal Neck: trachea midline, no thyromegaly Respiratory: no respiratory distress Auscultation: + diminished lung sounds and + crackles (Minimal crackles at the bases); no wheezes Cardiovascular: Rate/Rhythm: regular rate, regular rhythm and + tachycardic Heart Sounds: normal S1, normal S2 and + murmur (2/6 ESM over precordium) Extremities: + edema (Bilateral 1-2+ leg edema with chronic skin changes and cellulitis) Gastrointestinal (Abdomen): Inspection/Auscultation: + abdomen distended and normal bowel sounds Percussion/Palpation: abdomen soft; abdomen nontender Musculoskeletal: No acute arthritis in any joint Neurologic: Alert, awake and oriented x3. No focal sensory and motor deficit appreciated Results & Data Results & Data ([facility]) Vital Signs (Past 12 Hours) Vital Signs Temp Pulse Pulse Resp BP BP Pulse Ox 08/02/21 11:06 36.4 C L 62 18 128/52 L 100 08/02/21 07:12 36.7 C 64 15 154/67 H 99 08/02/21 06:20 78 08/02/21 03:35 37.0 C 66 20 141/63 H 98 Laboratory Results BMP 08/02/21 05:47 Sodium 140 Potassium 4.7 Chloride 99 Carbon Dioxide 38 H BUN 31 H Creatinine 0.97 Glucose 133 H Calcium 8.9 Medications Administered Current Inpatient Medications Acetaminophen (Acetaminophen 325 Mg Tab) 650 mg PO Q6H PRN PRN Reason: Fever/pain Stop: 08/23/21 03:15 Last Admin: 08/01/21 17:02 Dose: 650 mg Documented by: Atorvastatin Calcium (Atorvastatin 20 Mg Tab) 20 mg PO DAILY [facility] Stop: 08/23/21 08:59 Last Admin: 08/02/21 09:17 Dose: 20 mg Documented by: Dextrose (Dextrose 50% 50 Ml Syringe) 25 - 50 ml IV UD PRN; Protocol PRN Reason: Hypoglycemia Protocol Stop: 08/22/21 19:59 Fish Oil ([place]-3 (Purified Fish Oil) 1 Gm Cap) 1 gm PO BID [facility] Stop: 08/22/21 20:59 Last Admin: 08/02/21 09:18 Dose: 1 gm Documented by: Glucagon (Glucagon For Inj 1 Mg Vial) 1 mg IM UD PRN; Protocol PRN Reason: Hypoglycemia Protocol Stop: 08/22/21 19:59 Glucose (Glucose 40% Gel 15 Gm Tube) 15 - 30 gm PO UD PRN; Protocol PRN Reason: Hypoglycemia Protocol Stop: 08/22/21 19:59 Glucose (Glucose 10 Tabs/Tube) 4 - 8 tabs PO UD PRN; Protocol PRN Reason: Hypoglycemia Protocol Stop: 08/22/21 19:59 Insulin Aspart (Insulin Aspart Per Unit) 0 units SC ACHS [facility] Stop: 08/25/21 11:59 Last Admin: 08/02/21 12:11 Dose: 17 units Documented by: Insulin Glargine (Insulin Glargine Solostar 100 Units/Ml 3 Ml Pen) 25 units SC BID [facility]; Protocol Stop: 08/28/21 08:59 Last Admin: 08/02/21 08:57 Dose: 25 units Documented by: Lactic Acid (Ammonium Lactate 12% Lotion 225 Gm Btl) 1 gm EXT BID [facility] Stop: 08/23/21 20:59 Last Admin: 08/02/21 09:18 Dose: 1 gm Documented by: Magnesium Chloride (Magnesium Chloride 64mg Delayed Rel Tab) 64 mg PO DAILY [facility] Stop: 08/23/21 08:59 Last Admin: 08/02/21 09:17 Dose: 64 mg Documented by: Miconazole Nitrate (Miconazole Nitrate Powder 43 Gm) 1 appln EXT BID [facility] Stop: 08/23/21 06:24 Last Admin: 08/02/21 09:18 Dose: 1 appln Documented by: Miscellaneous (Carbohydrates For Hypoglycemia ) 15 - 30 gm PO UD PRN PRN Reason: Hypoglycemia Treatment Stop: 08/22/21 19:59 Miscellaneous Information (Pharmacy Glycemic Mgmt Consult) 1 ea N/A UD PRN PRN Reason: Consult Stop: 08/24/21 17:37 Pantoprazole Sodium (Pantoprazole 40 Mg Tab) 40 mg PO BID [facility] Stop: 08/30/21 08:59 Last Admin: 08/02/21 09:17 Dose: 40 mg Documented by: Potassium Chloride (Potassium Chloride 10 Meq Tabcr) 10 meq PO DAILY [facility] Stop: 08/23/21 08:59 Last Admin: 08/02/21 09:17 Dose: 10 meq Documented by: Warfarin Sodium (Warfarin Sod 1 Mg Tab) 1 mg PO DAILY@1600 [facility] Stop: 08/29/21 15:59 Last Admin: 07/30/21 15:59 Dose: 1 mg Documented by:
[2021-08-02] MEDS: WARFARIN SOD 5 MG TAB PO SCH (17:07)
[2021-08-03] MEDS: ACETAMINOPHEN 325 MG TAB PO PRN (03:15)
[2021-08-03 06:20] LABS: Basophils # (auto) 0.02 K/uL (0-0.2); Basophils % (auto) 0.2 %; Eosinophils # (auto) 0.21 K/uL (0-0.5); Eosinophils % (auto) 2.4 %; Hematocrit (blood only) 26.4 % (37-47); Hemoglobin 7.7 g/dL (12.0-16.0); Immature Granulocytes # (auto) 0.06 K/uL (0.00-0.02); Immature Granulocytes % (auto) 0.7 %; Lymphocytes # (auto) 1.51 K/uL (1.2-3.4); Lymphocytes % (auto) 17.1 %; Mean Corpuscular Hemoglobin 28.6 pg (25-34); Mean Corpuscular Hgb Conc 29.2 g/dL (32-36); Mean Corpuscular Volume 98.1 fL (80-100); Mean Platelet Volume 8.6 fL (7.4-10.4); Monocytes # (auto) 0.46 K/uL (0.11-0.59); Monocytes % (auto) 5.2 %; Neutrophils # (auto) 6.59 K/uL (1.4-6.5); Neutrophils % (auto) 74.4 %; Nucleated RBC # (auto) 0.02 K/uL (0-0); Nucleated RBC % (auto) 0.2 %; Platelet Count 506 K/uL (130-400); RDW Coefficient of Variation 15.3 % (11.5-14.5); RDW Standard Deviation 54.2 fL (36.4-46.3); Red Blood Count 2.69 M/uL (4.2-5.4); White Blood Count 8.85 K/uL (4.8-10.8)
[2021-08-03 06:33] LABS: INR 1.4 (0.9-1.1); Prothrombin Time 14.8 Seconds (9.0-12.0)
[2021-08-03 06:36] LABS: BUN Creatinine Ratio 34.1 (10-20); Creatinine Clr Calc Pharmacy 71.1 ml/min; Est GFR (African American) 73.5 ml/min; Est GFR (Non-African American) 63.4 ml/min; Potassium 4.8 mmol/L (3.5-5.1)
[2021-08-03 06:40] LABS: Polychromasia 1+
[2021-08-03] MEDS: INSULIN ASPART PER UNIT SC SCH ×4 (07:53→20:57)
[2021-08-03] MEDS: MICONAZOLE NITRATE POWDER 43 GM EXT SCH ×2 (08:09→20:57)
[2021-08-03] MEDS: OMEGA-3 (PURIFIED FISH OIL) 1 GM CAP PO SCH ×2 (08:09→20:58)
[2021-08-03] MEDS: MAGNESIUM CHLORIDE 64MG DELAYED REL TAB PO SCH (08:09)
[2021-08-03] MEDS: INSULIN GLARGINE SOLOSTAR 100 UNITS/ML 3 ML PEN SC SCH ×2 (08:09→20:57)
[2021-08-03] MEDS: ATORVASTATIN 20 MG TAB PO SCH (08:09)
[2021-08-03] MEDS: PANTOprazole 40 MG TAB PO SCH ×2 (08:09→20:57)
[2021-08-03] MEDS: POTASSIUM CHLORIDE 10 MEQ TABCR PO SCH (08:09)
[2021-08-03] MEDS: AMMONIUM LACTATE 12% LOTION 225 GM BTL EXT SCH ×2 (08:11→20:58)
--- NOTE | 2021-08-03 12:00 | Pharmacy Report ---
Pharmacy Glycemic Short Note 2 - Date of Service August 03, 2021 - Glycemic Short BSG Results (Last 24 hours): 08/02/21 08/02/21 08/03/21 16:29 19:45 05:55 Glucose 110 H POC Glucose 199 H 199 H 08/03/21 08/03/21 07:26 11:16 Glucose POC Glucose 108 H 197 H OUTPATIENT ANTIDIABETIC REGIMEN: * Novolog 10 units AC * Lantus 50 units daily ASSESSMENT: 08/03: * BSGs reasonably well controlled on current regimen. Fasting BSG very well controlled at 108mg/dL today. Will monitor trend to ensure this does not keep downtrending. Will continue with current novolog scale. May consider tightening CR slightly tomorrow. Patient is tolerating a diet. 07/31 * BSGs well controlled yesterday with current regimen * Fasting BSG 182 with 50 units basal on board. Of note, yesterday's fasting BSG 144 on same Lantus dose. GLU on this AM's chemistry 106. Will not increase basal insulin dose in response to today's fasting BSG. * All post-prandial BSGs at goal yesterday. Today's prelunch BSG elevated, h owever, considering pre-breakfast BSG was elevated the climb in BSG was not substantial. Will continue same CF and CR, plan to trend post-prandial BSGs 07/29 * BSGs still mildly elevated * Fasting BSG acceptable this AM w/ 50 units basal on board - will continue the same for next 24 hrs * Post-prandial BSGs elevated 3 of 3 yesterday and again mildly elevated pre- lunch today, will increase prandial insulin dose somewhat 07/28 * T2DM/clear liq diet ordered yesterday evening * BSG's all above goal yesterday after reduction in basal insulin. * Will increase basal today and keep BID for now, but with higher dose this AM to try to get back to qAM admin as an outpatient * May need to adjust CHO ratio depending on trend in post-prandial BSG's now that diet is ordered 07/27 * BSGs fairly well controlled over last 24 hrs * Insulin needs appear to have decreased since IV heparin drip held yesterday afternoon. * Fasting BSGs at goal with 60 units basal on board. Today is Day 2 NPO status. Pt is receiving minimal dextrose from Protonix gtt. * Will scale back Lantus dosing due to risk of prolonged hypoglycemia with ongoing NPO. Will split dosing BID and dose per scale. * Continue "high" stress level Novolog dosing initially and cover Q 4 hrs for now. PLAN FOR INPATIENT GLYCEMIC CONTROL: * Basal insulin * Lantus 25 units SQ BID * Bolus insulin * NovoLog per scale ACHS * Goal Range: Low 110 mg/dL - High 140 mg/dL * Correction Factor: 12 mg/dL/unit * Nutritional / Prandial insulin per carb ratio of 1 unit per 4 grams CHO consumed
--- NOTE | 2021-08-03 14:04 | Hospitalist Progress Note ---
Date of Service August 03, 2021 Assessment & Plan (1) Sepsis: (2) Pulmonary embolism: Plan: 74 years old and morbidly obese female w/ PMH of KENAN, paroxysmal atrial fibrillation, type 2 diabetes on insulin, hypertension, diastolic CHF, hyperlipidemia, GERD, pulmonary hypertension, apparently was brought into the ER 07/23 by the EMS following a fall at home. She lives with her son who found her in between bed and dresser after coming back from work. She is being managed for the following: GI bleed 07/25,EGD scope 07/27 with 2 superficial ulcers in duodenal bulb, larger one empirically Acute blood loss anemia: / above Patient reports having no GI doctor as an outpatient, denies any colonoscopy in the past Patient has been on heparin drip for dvt and PE for 2 days as of 07/25 Hemoglobin dropped to 7.3 on 07/25 from 11.1 on admission s/p 1 unit, Hb stable lately. HnH Q12H and as appropriate-hemoglobin remains stable as of 08/01/2021 at 8.2 Anticoagulation: While on heparin drip, Warfarin initiated at 5 mg dose on 07/29 INR >2.0 on 07/30 AM, Coumadin dose decreased to 1 mg on 07/30 INR 6.0 on 07/31 AM, iv 2.5 mg Vit K given, d/w with Dr. Thomas about the situation, PT/INR repeated at 4 hour of iv vit K, INR came back 2.2 INR today is 1.3 and will restart Coumadin at 1 mg daily PPI drip transitioned to PO on 07/31/2021. GI: EGD scope 07/27 with 2 superficial ulcers in duodenal bulb, larger one empi rically clipped. Continue with anticoagulation. Hemoglobin dropped to 7.7 without any symptoms and now no evidence of bleeding Pulmonary edema - likely iatrogenic Patient oxygen at home 3 L per patient Patient currently on 3 L but seems to have labored breathing today Patient has got multiple fluids and blood transfusion. Repeat CXR 07/26 reveals increasing vascular congestion in the lungs. 07/26/21 echo [due to PE]: Ejection fraction 60 to 65% with normal left ventricular structure and function. Moderate concentric LVH. s/p small dose iv lasix on 07/26, pt doing well, closely monitor for volume overload. No signs and/or symptoms of fluid overload Cellulitis RLE Sepsis POA: At presentation, tachycardic and with elevated WBC on the background of RLE cellulitis. Febrile but temperature below 38 degree C Resolved Patient has history of BLE cellulitis. On exam, chronic BLE skin changes/edematous, mostly non pitting. --> Lac hydrin lotion. Patient does have right heel superficial ulcer with surrounding erythema and tenderness, likely source of RLE cellulitis --> improved redness and tenderness 07/25 CT Rt foot:11mm skin ulceration w/ cellulitis, no evidence of OM/abscess Admitting blood culture- NG for 5 days. Admitting pro-Efraín 13.45 Wound care nurse on board, appreciate recommendation. Patient afebrile, WBC normal. ID evaluated: Cefepime 07/24 --> cefazolin 07/25-we will continue to finish 14 days course of antibiotic Pt will need OP wound care f/u. Pt made aware Bilateral DVT Pulmonary embolism: likely secondary to above Patient has shortness of breath on presentation with tachycardia. Admitting bilateral venous Doppler: Positive for nonocclusive DVT Admitting CTA chest: Positive for right sided PE, no evidence of right heart strain noted. Anticoagulation (see above), Hb has stayed stable. 07/27 vascular surgery evaluated, no IVC filter recommendation at this time, reach out if further significant bleeding occurs. Will need to be in touch with PCP for anticoagulation work-up and further discussion on anticoagulation treatment. Likely will need outpatient hematology. INR is not yet therapeutic is 1.4 today-we will continue with 5 mg on Coumadin daily Presumed UTI UA suggestive, urine culture pending Patient denies any pain or burning while passing urine. Patient is on antibiotic for RLE cellulitis. CIERA over CKD stage III Baseline creatinine around 0.8-1 Admitting creatinine of 1.92, Resolved Monitor BMP daily and as appropriate. Generalized weakness Fall Came in with fall with no obvious injury Remains generally weak and lethargic Uses 3 L oxygen at home Admitting CT head, C-spine CT, CXR reviewed. PT/OT evaluation tomorrow Other chronic medical conditions: Paroxysmal A. fib, diastolic CHF, COPD, DM on insulin therapy Continue with/resume home medications as and when appropriate. DVT prophylaxis: on coumadin (see above) INR is 1.2 today, will give 2.5 mg of Coumadin Received 5 mg of Coumadin yesterday 08/02/2017 We will continue 5 mg daily CODE STATUS: full code. Disposition: PT/OT, CM to assist with DC planning. Awaiting placement Admission and Anticipated Discharge Date Admission Date: July 23, 2021 Subjective 08/01/2021 The patient was seen and examined in telemetry unit She has been feeling much better but has not been coming out of bed due to leg pain to participate in physical therapy Denies any acute symptoms in bed She was strongly advised to participate in physical therapy to get better 08/02/2021 The patient was seen and examined in telemetry unit She has been feeling much better but has not had PT and OT evaluation is Denies any significant symptoms in bed 08/03/2021 Patient seen and examined in telemetry unit She has been feeling much better and denies any significant symptoms She has had PT and OT evaluation and recommended to go to rehab Awaiting placement Review of Systems Review of Systems: All systems reviewed and are unremarkable except as noted below Musculoskeletal: No acute arthritis in any joint Physical Exam Physical Exam: Lying in bed without any shortness of breath or any other distress Constitutional: well developed, well nourished and + morbidly obese; not ill appearing Eyes: PERRL, conjunctivae normal, anicteric sclerae ENMT: external ear and nose normal, oropharynx normal Neck: trachea midline, no thyromegaly Respiratory: no respiratory distress Auscultation: + diminished lung sounds and + crackles (Minimal crackles at the bases); no wheezes Cardiovascular: Rate/Rhythm: regular rate, regular rhythm and + tachycardic Heart Sounds: normal S1, normal S2 and + murmur (2/6 ESM over precordium) Extremities: + edema (Bilateral 1-2+ leg edema with chronic skin changes and cellulitis) Gastrointestinal (Abdomen): Inspection/Auscultation: + abdomen distended and normal bowel sounds Percussion/Palpation: abdomen soft; abdomen nontender Musculoskeletal: No acute arthritis involving any joint Neurologic: Alert, awake and oriented x3. She is generally very weak and lethargic Results & Data Results & Data ([facility]) Vital Signs (Past 12 Hours) Vital Signs Temp Pulse Pulse Resp BP BP Pulse Ox 08/03/21 11:43 36.5 C 78 20 139/52 L 96 08/03/21 08:06 36.6 C 66 20 143/65 H 98 08/03/21 03:10 37.2 C 76 19 152/53 H 96 Laboratory Results Short CBC 08/03/21 Range/Units 05:55 WBC 8.85 (4.8-10.8) K/uL Hgb 7.7 L (12.0-16.0) g/dL Hct 26.4 L (37-47) % Plt Count 506 H (130-400) K/uL BMP 08/03/21 05:55 Sodium 136 Potassium 4.8 Chloride 97 L Carbon Dioxide 39 H BUN 30 H Creatinine 0.88 Glucose 110 H Calcium 9.0 Medications Administered Current Inpatient Medications Acetaminophen (Acetaminophen 325 Mg Tab) 650 mg PO Q6H PRN PRN Reason: Fever/pain Stop: 08/23/21 03:15 Last Admin: 08/03/21 03:15 Dose: 650 mg Documented by: Atorvastatin Calcium (Atorvastatin 20 Mg Tab) 20 mg PO DAILY [facility] Stop: 08/23/21 08:59 Last Admin: 08/03/21 08:09 Dose: 20 mg Documented by: Dextrose (Dextrose 50% 50 Ml Syringe) 25 - 50 ml IV UD PRN; Protocol PRN Reason: Hypoglycemia Protocol Stop: 08/22/21 19:59 Fish Oil ([place]-3 (Purified Fish Oil) 1 Gm Cap) 1 gm PO BID [facility] Stop: 08/22/21 20:59 Last Admin: 08/03/21 08:09 Dose: 1 gm Documented by: Glucagon (Glucagon For Inj 1 Mg Vial) 1 mg IM UD PRN; Protocol PRN Reason: Hypoglycemia Protocol Stop: 08/22/21 19:59 Glucose (Glucose 40% Gel 15 Gm Tube) 15 - 30 gm PO UD PRN; Protocol PRN Reason: Hypoglycemia Protocol Stop: 08/22/21 19:59 Glucose (Glucose 10 Tabs/Tube) 4 - 8 tabs PO UD PRN; Protocol PRN Reason: Hypoglycemia Protocol Stop: 08/22/21 19:59 Insulin Aspart (Insulin Aspart Per Unit) 0 units SC ACHS [facility] Stop: 08/25/21 11:59 Last Admin: 08/03/21 12:14 Dose: 14 units Documented by: Insulin Glargine (Insulin Glargine Solostar 100 Units/Ml 3 Ml Pen) 25 units SC BID [facility]; Protocol Stop: 08/28/21 08:59 Last Admin: 08/03/21 08:09 Dose: 25 units Documented by: Lactic Acid (Ammonium Lactate 12% Lotion 225 Gm Btl) 1 gm EXT BID [facility] Stop: 08/23/21 20:59 Last Admin: 08/03/21 08:11 Dose: 1 gm Documented by: Magnesium Chloride (Magnesium Chloride 64mg Delayed Rel Tab) 64 mg PO DAILY [facility] Stop: 08/23/21 08:59 Last Admin: 08/03/21 08:09 Dose: 64 mg Documented by: Miconazole Nitrate (Miconazole Nitrate Powder 43 Gm) 1 appln EXT BID [facility] Stop: 08/23/21 06:24 Last Admin: 08/03/21 08:09 Dose: 1 appln Documented by: Miscellaneous (Carbohydrates For Hypoglycemia ) 15 - 30 gm PO UD PRN PRN Reason: Hypoglycemia Treatment Stop: 08/22/21 19:59 Miscellaneous Information (Pharmacy Glycemic Mgmt Consult) 1 ea N/A UD PRN PRN Reason: Consult Stop: 08/24/21 17:37 Pantoprazole Sodium (Pantoprazole 40 Mg Tab) 40 mg PO BID [facility] Stop: 08/30/21 08:59 Last Admin: 08/03/21 08:09 Dose: 40 mg Documented by: Potassium Chloride (Potassium Chloride 10 Meq Tabcr) 10 meq PO DAILY [facility] Stop: 08/23/21 08:59 Last Admin: 08/03/21 08:09 Dose: 10 meq Documented by: Warfarin Sodium (Warfarin Sod 1 Mg Tab) 1 mg PO DAILY@1600 [facility] Stop: 08/29/21 15:59 Last Admin: 07/30/21 15:59 Dose: 1 mg Documented by: Warfarin Sodium (Warfarin Sod 5 Mg Tab) 5 mg PO DAILY@1600 [facility] Stop: 09/01/21 15:59 Last Admin: 08/02/21 17:07 Dose: 5 mg Documented by:
[2021-08-03] MEDS: WARFARIN SOD 5 MG TAB PO SCH (17:14)
[2021-08-04] MEDS: INSULIN ASPART PER UNIT SC SCH ×4 (08:18→21:21)
[2021-08-04] MEDS: INSULIN GLARGINE SOLOSTAR 100 UNITS/ML 3 ML PEN SC SCH ×2 (08:19→21:20)
[2021-08-04] MEDS: ATORVASTATIN 20 MG TAB PO SCH (08:23)
[2021-08-04] MEDS: OMEGA-3 (PURIFIED FISH OIL) 1 GM CAP PO SCH ×2 (08:23→21:21)
[2021-08-04] MEDS: MAGNESIUM CHLORIDE 64MG DELAYED REL TAB PO SCH (08:23)
[2021-08-04] MEDS: PANTOprazole 40 MG TAB PO SCH ×2 (08:23→21:24)
[2021-08-04] MEDS: MICONAZOLE NITRATE POWDER 43 GM EXT SCH ×2 (08:23→21:23)
[2021-08-04] MEDS: POTASSIUM CHLORIDE 10 MEQ TABCR PO SCH (08:23)
[2021-08-04] MEDS: AMMONIUM LACTATE 12% LOTION 225 GM BTL EXT SCH ×2 (08:23→21:21)
[2021-08-04 09:22] LABS: INR 3.4 (0.9-1.1); Prothrombin Time 34.2 Seconds (9.0-12.0)
[2021-08-04 09:39] LABS: BUN Creatinine Ratio 28.3 (10-20); Calcium 9.1 mg/dl (8.5-10.1); Creatinine Clr Calc Pharmacy 63.3 ml/min; Est GFR (African American) 63.7 ml/min; Potassium 4.6 mmol/L (3.5-5.1)
[2021-08-04 10:08] LABS: Basophils # (auto) 0.01 K/uL (0-0.2); Basophils % (auto) 0.1 %; Eosinophils # (auto) 0.21 K/uL (0-0.5); Hematocrit (blood only) 28.5 % (37-47); Hemoglobin 8.2 g/dL (12.0-16.0); Immature Granulocytes # (auto) 0.03 K/uL (0.00-0.02); Immature Granulocytes % (auto) 0.4 %; Lymphocytes # (auto) 1.62 K/uL (1.2-3.4); Lymphocytes % (auto) 23.1 %; Mean Corpuscular Hemoglobin 28.5 pg (25-34); Mean Corpuscular Hgb Conc 28.8 g/dL (32-36); Mean Platelet Volume 8.8 fL (7.4-10.4); Monocytes # (auto) 0.34 K/uL (0.11-0.59); Monocytes % (auto) 4.9 %; Neutrophils # (auto) 4.79 K/uL (1.4-6.5); Neutrophils % (auto) 68.5 %; Platelet Count 499 K/uL (130-400); RDW Coefficient of Variation 15.5 % (11.5-14.5); RDW Standard Deviation 55.5 fL (36.4-46.3); Red Blood Count 2.88 M/uL (4.2-5.4)
--- NOTE | 2021-08-04 12:37 | Hospitalist Progress Note ---
Date of Service August 04, 2021 Assessment & Plan (1) Sepsis: (2) Pulmonary embolism: Plan: 74 years old and morbidly obese female w/ PMH of KENAN, paroxysmal atrial fibrillation, type 2 diabetes on insulin, hypertension, diastolic CHF, hyperlipidemia, GERD, pulmonary hypertension, apparently was brought into the ER 07/23 by the EMS following a fall at home. She lives with her son who found her in between bed and dresser after coming back from work. She is being managed for the following: GI bleed 07/25,EGD scope 07/27 with 2 superficial ulcers in duodenal bulb, larger one empirically Acute blood loss anemia: / above Patient reports having no GI doctor as an outpatient, denies any colonoscopy in the past Patient has been on heparin drip for dvt and PE for 2 days as of 07/25 Hemoglobin dropped to 7.3 on 07/25 from 11.1 on admission s/p 1 unit, Hb stable lately. HnH Q12H and as appropriate-hemoglobin remains stable as of 08/01/2021 at 8.2 Anticoagulation: While on heparin drip, Warfarin initiated at 5 mg dose on 07/29 INR >2.0 on 07/30 AM, Coumadin dose decreased to 1 mg on 07/30 INR 6.0 on 07/31 AM, iv 2.5 mg Vit K given, d/w with Dr. Thomas about the situation, PT/INR repeated at 4 hour of iv vit K, INR came back 2.2 INR today is 1.3 and will restart Coumadin at 1 mg daily PPI drip transitioned to PO on 07/31/2021. GI: EGD scope 07/27 with 2 superficial ulcers in duodenal bulb, larger one empi rically clipped. Continue with anticoagulation. Hemoglobin dropped to 7.7 without any symptoms and now no evidence of bleeding Hemoglobin remains stable at 8.2 INR is therapeutic at this time Remains medically stable to be discharged from the hospital Pulmonary edema - likely iatrogenic Patient oxygen at home 3 L per patient Patient currently on 3 L but seems to have labored breathing today Patient has got multiple fluids and blood transfusion. Repeat CXR 07/26 reveals increasing vascular congestion in the lungs. 07/26/21 echo [due to PE]: Ejection fraction 60 to 65% with normal left ventricular structure and function. Moderate concentric LVH. s/p small dose iv lasix on 07/26, pt doing well, closely monitor for volume overload. No signs and/or symptoms of fluid overload Cellulitis RLE Sepsis POA: At presentation, tachycardic and with elevated WBC on the background of RLE cellulitis. Febrile but temperature below 38 degree C Resolved Patient has history of BLE cellulitis. On exam, chronic BLE skin changes/edematous, mostly non pitting. --> Lac hydrin lotion. Patient does have right heel superficial ulcer with surrounding erythema and tenderness, likely source of RLE cellulitis --> improved redness and tenderness 07/25 CT Rt foot:11mm skin ulceration w/ cellulitis, no evidence of OM/abscess Admitting blood culture- NG for 5 days. Admitting pro-Efraín 13.45 Wound care nurse on board, appreciate recommendation. Patient afebrile, WBC normal. ID evaluated: Cefepime 07/24 --> cefazolin 07/25-we will continue to finish 14 days course of antibiotic Pt will need OP wound care f/u. Pt made aware No worsening of the cellulitis and lower leg wounds Bilateral DVT Pulmonary embolism: likely secondary to above Patient has shortness of breath on presentation with tachycardia. Admitting bilateral venous Doppler: Positive for nonocclusive DVT Admitting CTA chest: Positive for right sided PE, no evidence of right heart strain noted. Anticoagulation (see above), Hb has stayed stable. 07/27 vascular surgery evaluated, no IVC filter recommendation at this time, reach out if further significant bleeding occurs. Will need to be in touch with PCP for anticoagulation work-up and further discus geno on anticoagulation treatment. Likely will need outpatient hematology. INR is not yet therapeutic is 1.4 today-we will continue with 5 mg on Coumadin daily INR is 3.4 as of 08/04/2021 Presumed UTI UA suggestive, urine culture pending Patient denies any pain or burning while passing urine. Patient is on antibiotic for RLE cellulitis. CIERA over CKD stage III Baseline creatinine around 0.8-1 Admitting creatinine of 1.92, Resolved Monitor BMP daily and as appropriate. Generalized weakness Fall Came in with fall with no obvious injury Remains generally weak and lethargic Uses 3 L oxygen at home Admitting CT head, C-spine CT, CXR reviewed. PT/OT evaluation tomorrow Other chronic medical conditions: Paroxysmal A. fib, diastolic CHF, COPD, DM on insulin therapy Continue with/resume home medications as and when appropriate. DVT prophylaxis: on coumadin (see above) INR is 1.2 today, will give 2.5 mg of Coumadin Received 5 mg of Coumadin yesterday 08/02/2017 We will continue 5 mg daily CODE STATUS: full code. Disposition: PT/OT, CM to assist with DC planning. Awaiting placement Admission and Anticipated Discharge Date Admission Date: July 23, 2021 Subjective 08/01/2021 The patient was seen and examined in telemetry unit She has been feeling much better but has not been coming out of bed due to leg pain to participate in physical therapy Denies any acute symptoms in bed She was strongly advised to participate in physical therapy to get better 08/02/2021 The patient was seen and examined in telemetry unit She has been feeling much better but has not had PT and OT evaluation is Denies any significant symptoms in bed 08/03/2021 Patient seen and examined in telemetry unit She has been feeling much better and denies any significant symptoms She has had PT and OT evaluation and recommended to go to rehab Awaiting placement 08/04/2021 Patient was seen and examined in telemetry unit She has been feeling much better and she is out of bed on a chair She denies any pain in the legs No shortness of breath and no palpitation, no abdominal pain nausea no vomiting Review of Systems Review of Systems: All systems reviewed and are unremarkable except as noted below Musculoskeletal: No acute arthritis in any joint Physical Exam Physical Exam: Sitting on a chair without any acute distress Constitutional: well developed, well nourished and + morbidly obese; not ill appearing Eyes: PERRL, conjunctivae normal, anicteric sclerae ENMT: external ear and nose normal, oropharynx normal Neck: trachea midline, no thyromegaly Respiratory: no respiratory distress Auscultation: + diminished lung sounds and + crackles (Minimal crackles at the bases); no wheezes Cardiovascular: Rate/Rhythm: regular rate, regular rhythm and + tachycardic Heart Sounds: normal S1, normal S2 and + murmur (2/6 ESM over precordium) Extremities: + edema (Bilateral 1-2+ leg edema with chronic skin changes and cellulitis) Gastrointestinal (Abdomen): Inspection/Auscultation: + abdomen distended and normal bowel sounds Percussion/Palpation: abdomen soft; abdomen nontender Musculoskeletal: No acute arthritis in any joint Neurologic: Alert, awake and oriented x3. Generally weak but no focal neuro deficit Results & Data Results & Data ([facility]) Vital Signs (Past 12 Hours) Vital Signs Temp Pulse Pulse Pulse Resp BP BP 08/04/21 11:23 36.6 C 89 22 135/73 08/04/21 08:19 36.5 C 69 18 112/62 08/04/21 07:03 65 08/04/21 04:12 36.5 C 65 20 122/65 Pulse Ox 08/04/21 11:23 98 08/04/21 08:19 92 08/04/21 07:03 08/04/21 04:12 93 Laboratory Results Short CBC 08/04/21 Range/Units 08:39 WBC 7.00 (4.8-10.8) K/uL Hgb 8.2 L (12.0-16.0) g/dL Hct 28.5 L (37-47) % Plt Count 499 H (130-400) K/uL BMP 08/04/21 08:39 Sodium 137 Potassium 4.6 Chloride 96 L Carbon Dioxide 36 H BUN 28 H Creatinine 0.99 Glucose 247 H Calcium 9.1 Medications Administered Current Inpatient Medications Acetaminophen (Acetaminophen 325 Mg Tab) 650 mg PO Q6H PRN PRN Reason: Fever/pain Stop: 08/23/21 03:15 Last Admin: 08/03/21 03:15 Dose: 650 mg Documented by: Atorvastatin Calcium (Atorvastatin 20 Mg Tab) 20 mg PO DAILY SIMEON Stop: 08/23/21 08:59 Last Admin: 08/04/21 08:23 Dose: 20 mg Documented by: Dextrose (Dextrose 50% 50 Ml Syringe) 25 - 50 ml IV UD PRN; Protocol PRN Reason: Hypoglycemia Protocol Stop: 08/22/21 19:59 Fish Oil ([place]-3 (Purified Fish Oil) 1 Gm Cap) 1 gm PO BID SIMEON Stop: 08/22/21 20:59 Last Admin: 08/04/21 08:23 Dose: 1 gm Documented by: Glucagon (Glucagon For Inj 1 Mg Vial) 1 mg IM UD PRN; Protocol PRN Reason: Hypoglycemia Protocol Stop: 08/22/21 19:59 Glucose (Glucose 40% Gel 15 Gm Tube) 15 - 30 gm PO UD PRN; Protocol PRN Reason: Hypoglycemia Protocol Stop: 08/22/21 19:59 Glucose (Glucose 10 Tabs/Tube) 4 - 8 tabs PO UD PRN; Protocol PRN Reason: Hypoglycemia Protocol Stop: 08/22/21 19:59 Insulin Aspart (Insulin Aspart Per Unit) 0 units SC ACHS [facility] Stop: 08/25/21 11:59 Last Admin: 08/04/21 11:46 Dose: 23 units Documented by: Insulin Glargine (Insulin Glargine Solostar 100 Units/Ml 3 Ml Pen) 25 units SC BID [facility]; Protocol Stop: 08/28/21 08:59 Last Admin: 08/04/21 08:19 Dose: 25 units Documented by: Lactic Acid (Ammonium Lactate 12% Lotion 225 Gm Btl) 1 gm EXT BID [facility] Stop: 08/23/21 20:59 Last Admin: 08/04/21 08:23 Dose: 1 gm Documented by: Magnesium Chloride (Magnesium Chloride 64mg Delayed Rel Tab) 64 mg PO DAILY [facility] Stop: 08/23/21 08:59 Last Admin: 08/04/21 08:23 Dose: 64 mg Documented by: Miconazole Nitrate (Miconazole Nitrate Powder 43 Gm) 1 appln EXT BID [facility] Stop: 08/23/21 06:24 Last Admin: 08/04/21 08:23 Dose: 1 appln Documented by: Miscellaneous (Carbohydrates For Hypoglycemia ) 15 - 30 gm PO UD PRN PRN Reason: Hypoglycemia Treatment Stop: 08/22/21 19:59 Miscellaneous Information (Pharmacy Glycemic Mgmt Consult) 1 ea N/A UD PRN PRN Reason: Consult Stop: 08/24/21 17:37 Pantoprazole Sodium (Pantoprazole 40 Mg Tab) 40 mg PO BID [facility] Stop: 08/30/21 08:59 Last Admin: 08/04/21 08:23 Dose: 40 mg Documented by: Potassium Chloride (Potassium Chloride 10 Meq Tabcr) 10 meq PO DAILY [facility] Stop: 08/23/21 08:59 Last Admin: 08/04/21 08:23 Dose: 10 meq Documented by: Warfarin Sodium (Warfarin Sod 1 Mg Tab) 1 mg PO DAILY@1600 [facility] Stop: 08/29/21 15:59 Last Admin: 07/30/21 15:59 Dose: 1 mg Documented by: Warfarin Sodium (Warfarin Sod 5 Mg Tab) 5 mg PO DAILY@1600 [facility] Stop: 09/01/21 15:59 Last Admin: 08/03/21 17:14 Dose: 5 mg Documented by:
--- NOTE | 2021-08-04 15:40 | Pharmacy Report ---
Pharmacy Glycemic Short Note 2 - Date of Service August 04, 2021 - Glycemic Short BSG Results (Last 24 hours): 08/03/21 08/03/21 08/04/21 16:24 20:04 07:43 Glucose POC Glucose 176 H 189 H 186 H 08/04/21 08/04/21 08:39 11:32 Glucose 247 H POC Glucose 169 H OUTPATIENT ANTIDIABETIC REGIMEN: * Novolog 10 units AC * Lantus 50 units daily ASSESSMENT: 08/04: * Fasting BSG significantly higher today, will monitor for trend before adjusting basal dose given discrepancy. I did confirm with RN that the blood glucose value of 247mg/dL was postprandial. * CR was tightened slightly today and patient continues to tolerate a diet. 08/03: * BSGs reasonably well controlled on current regimen. Fasting BSG very well controlled at 108mg/dL today. Will monitor trend to ensure this does not keep downtrending. Will continue with current novolog scale. May consider tightening CR slightly tomorrow. Patient is tolerating a diet. 07/31 * BSGs well controlled yesterday with current regimen * Fasting BSG 182 with 50 units basal on board. Of note, yesterday's fasting BSG 144 on same Lantus dose. GLU on this AM's chemistry 106. Will not increase basal insulin dose in response to today's fasting BSG. * All post-prandial BSGs at goal yesterday. Today's prelunch BSG elevated, however, considering pre-breakfast BSG was elevated the climb in BSG was not substantial. Will continue same CF and CR, plan to trend post-prandial BSGs 07/29 * BSGs still mildly elevated * Fasting BSG acceptable this AM w/ 50 units basal on board - will continue the same for next 24 hrs * Post-prandial BSGs elevated 3 of 3 yesterday and again mildly elevated pre- lunch today, will increase prandial insulin dose somewhat 07/28 * T2DM/clear liq diet ordered yesterday evening * BSG's all above goal yesterday after reduction in basal insulin. * Will increase basal today and keep BID for now, but with higher dose this AM to try to get back to qAM admin as an outpatient * May need to adjust CHO ratio depending on trend in post-prandial BSG's now that diet is ordered 07/27 * BSGs fairly well controlled over last 24 hrs * Insulin needs appear to have decreased since IV heparin drip held yesterday afternoon. * Fasting BSGs at goal with 60 units basal on board. Today is Day 2 NPO status. Pt is receiving minimal dextrose from Protonix gtt. * Will scale back Lantus dosing due to risk of prolonged hypoglycemia with ongoing NPO. Will split dosing BID and dose per scale. * Continue "high" stress level Novolog dosing initially and cover Q 4 hrs for now. PLAN FOR INPATIENT GLYCEMIC CONTROL: * Basal insulin * Lantus 25 units SQ BID * Bolus insulin * NovoLog per scale ACHS * Goal Range: Low 110 mg/dL - High 140 mg/dL * Correction Factor: 12 mg/dL/unit * Nutritional / Prandial insulin per carb ratio of 1 unit per 3.5 grams CHO consumed
[2021-08-04] MEDS: WARFARIN SOD 5 MG TAB PO SCH (17:37)
[2021-08-05 07:52] LABS: Prothrombin Time 39.5 Seconds (9.0-12.0)
[2021-08-05] MEDS: INSULIN ASPART PER UNIT SC SCH ×4 (08:18→22:31)
[2021-08-05] MEDS: INSULIN GLARGINE SOLOSTAR 100 UNITS/ML 3 ML PEN SC SCH ×2 (08:18→22:31)
[2021-08-05] MEDS: OMEGA-3 (PURIFIED FISH OIL) 1 GM CAP PO SCH ×2 (08:21→22:30)
[2021-08-05] MEDS: ATORVASTATIN 20 MG TAB PO SCH (08:21)
[2021-08-05] MEDS: MAGNESIUM CHLORIDE 64MG DELAYED REL TAB PO SCH (08:21)
[2021-08-05] MEDS: AMMONIUM LACTATE 12% LOTION 225 GM BTL EXT SCH ×2 (08:22→22:30)
[2021-08-05] MEDS: POTASSIUM CHLORIDE 10 MEQ TABCR PO SCH (08:22)
[2021-08-05] MEDS: PANTOprazole 40 MG TAB PO SCH ×2 (08:22→22:34)
[2021-08-05] MEDS: MICONAZOLE NITRATE POWDER 43 GM EXT SCH ×2 (08:24→22:32)
--- NOTE | 2021-08-05 10:05 | Hospitalist Progress Note ---
Date of Service August 05, 2021 Assessment & Plan (1) Sepsis: (2) Pulmonary embolism: Plan: 74 years old and morbidly obese female w/ PMH of KENAN, paroxysmal atrial fibrillation, type 2 diabetes on insulin, hypertension, diastolic CHF, hyperlipidemia, GERD, pulmonary hypertension, apparently was brought into the ER 07/23 by the EMS following a fall at home. She lives with her son who found her in between bed and dresser after coming back from work. She is being managed for the following: GI bleed 07/25,EGD scope 07/27 with 2 superficial ulcers in duodenal bulb, larger one empirically Acute blood loss anemia: / above Patient reports having no GI doctor as an outpatient, denies any colonoscopy in the past Patient has been on heparin drip for dvt and PE for 2 days as of 07/25 Hemoglobin dropped to 7.3 on 07/25 from 11.1 on admission s/p 1 unit, Hb stable lately. HnH Q12H and as appropriate-hemoglobin remains stable as of 08/01/2021 at 8.2 Anticoagulation: While on heparin drip, Warfarin initiated at 5 mg dose on 07/29 INR >2.0 on 07/30 AM, Coumadin dose decreased to 1 mg on 07/30 INR 6.0 on 07/31 AM, iv 2.5 mg Vit K given, d/w with Dr. Thomas about the situation, PT/INR repeated at 4 hour of iv vit K, INR came back 2.2 INR today is 1.3 and will restart Coumadin at 1 mg daily PPI drip transitioned to PO on 07/31/2021. GI: EGD scope 07/27 with 2 superficial ulcers in duodenal bulb, larger one empi rically clipped. Continue with anticoagulation. Hemoglobin dropped to 7.7 without any symptoms and now no evidence of bleeding Hemoglobin remains stable at 8.2 Remains medically stable to be discharged from the hospital Pulmonary edema - likely iatrogenic Patient oxygen at home 3 L per patient Patient currently on 3 L but seems to have labored breathing today Patient has got multiple fluids and blood transfusion. Repeat CXR 07/26 reveals increasing vascular congestion in the lungs. 07/26/21 echo [due to PE]: Ejection fraction 60 to 65% with normal left ventricular structure and function. Moderate concentric LVH. s/p small dose iv lasix on 07/26, pt doing well, closely monitor for volume overload. No signs and/or symptoms of fluid overload Cellulitis RLE Sepsis POA: At presentation, tachycardic and with elevated WBC on the background of RLE cellulitis. Febrile but temperature below 38 degree C Resolved Patient has history of BLE cellulitis. On exam, chronic BLE skin changes/edematous, mostly non pitting. --> Lac hydrin lotion. Patient does have right heel superficial ulcer with surrounding erythema and tenderness, likely source of RLE cellulitis --> improved redness and tenderness 07/25 CT Rt foot:11mm skin ulceration w/ cellulitis, no evidence of OM/abscess Admitting blood culture- NG for 5 days. Admitting pro-Efraín 13.45 Wound care nurse on board, appreciate recommendation. Patient afebrile, WBC normal. ID evaluated: Cefepime 07/24 --> cefazolin 07/25-we will continue to finish 14 days course of antibiotic Pt will need OP wound care f/u. Pt made aware No worsening of the cellulitis and lower leg wounds Continue with the wound care as planned Bilateral DVT Pulmonary embolism: likely secondary to above Patient has shortness of breath on presentation with tachycardia. Admitting bilateral venous Doppler: Positive for nonocclusive DVT Admitting CTA chest: Positive for right sided PE, no evidence of right heart strain noted. Anticoagulation (see above), Hb has stayed stable. 07/27 vascular surgery evaluated, no IVC filter recommendation at this time, reach out if further significant bleeding occurs. Will need to be in touch with PCP for anticoagulation work-up and further discussion on anticoagulation treatment. Likely will need outpatient hematology. INR is not yet therapeutic is 1.4 today-we will continue with 5 mg on Coumadin daily INR is 3.4 as of 08/04/2021 INR is 4.0 today and will hold Coumadin and decrease the dose on discharge Presumed UTI UA suggestive, urine culture pending Patient denies any pain or burning while passing urine. Patient is on antibiotic for RLE cellulitis. CIERA over CKD stage III Baseline creatinine around 0.8-1 Admitting creatinine of 1.92, Resolved Monitor BMP daily and as appropriate. Kidney function has been normal Generalized weakness Fall Came in with fall with no obvious injury Remains generally weak and lethargic Uses 3 L oxygen at home Admitting CT head, C-spine CT, CXR reviewed. PT/OT evaluation tomorrow Other chronic medical conditions: Paroxysmal A. fib, diastolic CHF, COPD, DM on insulin therapy Continue with/resume home medications as and when appropriate. DVT prophylaxis: on coumadin (see above) INR is 1.2 today, will give 2.5 mg of Coumadin Received 5 mg of Coumadin yesterday 08/02/2017 We will continue 5 mg daily CODE STATUS: full code. Disposition: PT/OT, CM to assist with DC planning. Awaiting placement-stable to be transferred Admission and Anticipated Discharge Date Admission Date: July 23, 2021 Subjective 08/01/2021 The patient was seen and examined in telemetry unit She has been feeling much better but has not been coming out of bed due to leg pain to participate in physical therapy Denies any acute symptoms in bed She was strongly advised to participate in physical therapy to get better 08/02/2021 The patient was seen and examined in telemetry unit She has been feeling much better but has not had PT and OT evaluation is Denies any significant symptoms in bed 08/03/2021 Patient seen and examined in telemetry unit She has been feeling much better and denies any significant symptoms She has had PT and OT evaluation and recommended to go to rehab Awaiting placement 08/04/2021 Patient was seen and examined in telemetry unit She has been feeling much better and she is out of bed on a chair She denies any pain in the legs No shortness of breath and no palpitation, no abdominal pain nausea no vomiting 08/05/2021 The patient was seen and examined in telemetry unit She has been complaining of left knee pain Denies any other symptoms Review of Systems Review of Systems: All systems reviewed and are unremarkable except as noted below Physical Exam Physical Exam: Lying in bed without any acute distress Constitutional: well developed, well nourished and + morbidly obese; not ill appearing Eyes: PERRL, conjunctivae normal, anicteric sclerae ENMT: external ear and nose normal, oropharynx normal Neck: trachea midline, no thyromegaly Respiratory: no respiratory distress Auscultation: + diminished lung sounds and + crackles (Minimal crackles at the bases); no wheezes Cardiovascular: Rate/Rhythm: regular rate, regular rhythm and + tachycardic Heart Sounds: normal S1, normal S2 and + murmur (2/6 ESM over precordium) Extremities: + edema (Bilateral 1-2+ leg edema with chronic skin changes and cellulitis) Gastrointestinal (Abdomen): Inspection/Auscultation: + abdomen distended and normal bowel sounds Percussion/Palpation: abdomen soft; abdomen nontender Musculoskeletal: No acute arthritis in any joint-ongoing pain in the left knee Neurologic: Alert, awake and oriented x3. Generally weak but no focal neuro deficit Results & Data Results & Data ([facility]) Vital Signs (Past 12 Hours) Vital Signs Temp Pulse Pulse Pulse Resp BP Pulse Ox 08/05/21 07:52 36.9 C 74 20 112/54 L 97 08/05/21 05:14 36.5 C 74 20 110/48 L 94 08/05/21 00:00 77 08/04/21 23:49 37.0 C 75 22 103/47 L 90 Laboratory Results Short CBC 08/04/21 Range/Units 08:39 WBC 7.00 (4.8-10.8) K/uL Hgb 8.2 L (12.0-16.0) g/dL Hct 28.5 L (37-47) % Plt Count 499 H (130-400) K/uL Medications Administered Current Inpatient Medications Acetaminophen (Acetaminophen 325 Mg Tab) 650 mg PO Q6H PRN PRN Reason: Fever/pain Stop: 08/23/21 03:15 Last Admin: 08/03/21 03:15 Dose: 650 mg Documented by: Atorvastatin Calcium (Atorvastatin 20 Mg Tab) 20 mg PO DAILY SIMEON Stop: 08/23/21 08:59 Last Admin: 08/05/21 08:21 Dose: 20 mg Documented by: Dextrose (Dextrose 50% 50 Ml Syringe) 25 - 50 ml IV UD PRN; Protocol PRN Reason: Hypoglycemia Protocol Stop: 08/22/21 19:59 Fish Oil ([place]-3 (Purified Fish Oil) 1 Gm Cap) 1 gm PO BID SIMEON Stop: 08/22/21 20:59 Last Admin: 08/05/21 08:21 Dose: 1 gm Documented by: Glucagon (Glucagon For Inj 1 Mg Vial) 1 mg IM UD PRN; Protocol PRN Reason: Hypoglycemia Protocol Stop: 08/22/21 19:59 Glucose (Glucose 40% Gel 15 Gm Tube) 15 - 30 gm PO UD PRN; Protocol PRN Reason: Hypoglycemia Protocol Stop: 08/22/21 19:59 Glucose (Glucose 10 Tabs/Tube) 4 - 8 tabs PO UD PRN; Protocol PRN Reason: Hypoglycemia Protocol Stop: 08/22/21 19:59 Insulin Aspart (Insulin Aspart Per Unit) 0 units SC ACHS [facility] Stop: 08/25/21 11:59 Last Admin: 08/05/21 08:18 Dose: 8 units Documented by: Insulin Glargine (Insulin Glargine Solostar 100 Units/Ml 3 Ml Pen) 25 units SC BID [facility]; Protocol Stop: 08/28/21 08:59 Last Admin: 08/05/21 08:18 Dose: 25 units Documented by: Lactic Acid (Ammonium Lactate 12% Lotion 225 Gm Btl) 1 gm EXT BID [facility] Stop: 08/23/21 20:59 Last Admin: 08/05/21 08:22 Dose: 1 gm Documented by: Magnesium Chloride (Magnesium Chloride 64mg Delayed Rel Tab) 64 mg PO DAILY [facility] Stop: 08/23/21 08:59 Last Admin: 08/05/21 08:21 Dose: 64 mg Documented by: Miconazole Nitrate (Miconazole Nitrate Powder 43 Gm) 1 appln EXT BID [facility] Stop: 08/23/21 06:24 Last Admin: 08/05/21 08:24 Dose: 1 appln Documented by: Miscellaneous (Carbohydrates For Hypoglycemia ) 15 - 30 gm PO UD PRN PRN Reason: Hypoglycemia Treatment Stop: 08/22/21 19:59 Miscellaneous Information (Pharmacy Glycemic Mgmt Consult) 1 ea N/A UD PRN PRN Reason: Consult Stop: 08/24/21 17:37 Pantoprazole Sodium (Pantoprazole 40 Mg Tab) 40 mg PO BID [facility] Stop: 08/30/21 08:59 Last Admin: 08/05/21 08:22 Dose: 40 mg Documented by: Potassium Chloride (Potassium Chloride 10 Meq Tabcr) 10 meq PO DAILY [facility] Stop: 08/23/21 08:59 Last Admin: 08/05/21 08:22 Dose: 10 meq Documented by: Warfarin Sodium (Warfarin Sod 5 Mg Tab) 5 mg PO DAILY@1600 [facility] Stop: 09/01/21 15:59 Last Admin: 08/04/21 17:37 Dose: Not Given Documented by:
[2021-08-06 07:07] LABS: Hematocrit (blood only) 26.6 % (37-47); Hemoglobin 7.8 g/dL (12.0-16.0); Mean Corpuscular Hemoglobin 28.5 pg (25-34); Mean Corpuscular Hgb Conc 29.3 g/dL (32-36); Mean Corpuscular Volume 97.1 fL (80-100); Mean Platelet Volume 8.7 fL (7.4-10.4); Platelet Count 402 K/uL (130-400); RDW Coefficient of Variation 15.7 % (11.5-14.5); RDW Standard Deviation 55.3 fL (36.4-46.3); Red Blood Count 2.74 M/uL (4.2-5.4); White Blood Count 5.63 K/uL (4.8-10.8)
[2021-08-06 07:12] LABS: INR 2.5 (0.9-1.1); Prothrombin Time 25.5 Seconds (9.0-12.0)
[2021-08-06 07:32] LABS: BUN Creatinine Ratio 35.9 (10-20); Calcium 8.8 mg/dl (8.5-10.1); Creatinine Clr Calc Pharmacy 67.2 ml/min; Est GFR (African American) 69.6 ml/min; Est GFR (Non-African American) 60.1 ml/min; Potassium 4.4 mmol/L (3.5-5.1)
[2021-08-06] MEDS: PANTOprazole 40 MG TAB PO SCH ×2 (07:41→21:12)
[2021-08-06] MEDS: POTASSIUM CHLORIDE 10 MEQ TABCR PO SCH (07:41)
[2021-08-06] MEDS: MAGNESIUM CHLORIDE 64MG DELAYED REL TAB PO SCH (07:41)
[2021-08-06] MEDS: OMEGA-3 (PURIFIED FISH OIL) 1 GM CAP PO SCH ×2 (07:41→21:11)
[2021-08-06] MEDS: ATORVASTATIN 20 MG TAB PO SCH (07:42)
[2021-08-06] MEDS: INSULIN ASPART PER UNIT SC SCH ×4 (07:54→21:12)
[2021-08-06] MEDS: INSULIN GLARGINE SOLOSTAR 100 UNITS/ML 3 ML PEN SC SCH ×2 (07:54→21:12)
[2021-08-06] MEDS: AMMONIUM LACTATE 12% LOTION 225 GM BTL EXT SCH ×2 (09:00→21:12)
[2021-08-06] MEDS: MICONAZOLE NITRATE POWDER 43 GM EXT SCH ×2 (09:01→21:12)
--- NOTE | 2021-08-06 09:28 | Hospitalist Progress Note ---
Date of Service August 06, 2021 Assessment & Plan (1) Sepsis: (2) Pulmonary embolism: Plan: 74 years old and morbidly obese female w/ PMH of KENAN, paroxysmal atrial fibrillation, type 2 diabetes on insulin, hypertension, diastolic CHF, hyperlipidemia, GERD, pulmonary hypertension, apparently was brought into the ER 07/23 by the EMS following a fall at home. She lives with her son who found her in between bed and dresser after coming back from work. She is being managed for the following: GI bleed 07/25,EGD scope 07/27 with 2 superficial ulcers in duodenal bulb, larger one empirically Acute blood loss anemia: / above Patient reports having no GI doctor as an outpatient, denies any colonoscopy in the past Patient has been on heparin drip for dvt and PE for 2 days as of 07/25 Hemoglobin dropped to 7.3 on 07/25 from 11.1 on admission s/p 1 unit, Hb stable lately. HnH Q12H and as appropriate-hemoglobin remains stable as of 08/01/2021 at 8.2 Anticoagulation: While on heparin drip, Warfarin initiated at 5 mg dose on 07/29 INR >2.0 on 07/30 AM, Coumadin dose decreased to 1 mg on 07/30 INR 6.0 on 07/31 AM, iv 2.5 mg Vit K given, d/w with Dr. Thomas about the situation, PT/INR repeated at 4 hour of iv vit K, INR came back 2.2 INR today is 1.3 and will restart Coumadin at 1 mg daily PPI drip transitioned to PO on 07/31/2021. GI: EGD scope 07/27 with 2 superficial ulcers in duodenal bulb, larger one empi rically clipped. Continue with anticoagulation. Hemoglobin dropped to 7.7 without any symptoms and now no evidence of bleeding Hemoglobin remains stable at 8.2 Remains medically stable to be discharged from the hospital Awaiting placement Pulmonary edema - likely iatrogenic Patient oxygen at home 3 L per patient Patient currently on 3 L but seems to have labored breathing today Patient has got multiple fluids and blood transfusion. Repeat CXR 07/26 reveals increasing vascular congestion in the lungs. 07/26/21 echo [due to PE]: Ejection fraction 60 to 65% with normal left ventricular structure and function. Moderate concentric LVH. s/p small dose iv lasix on 07/26, pt doing well, closely monitor for volume overload. No signs and/or symptoms of fluid overload Cellulitis RLE Sepsis POA: At presentation, tachycardic and with elevated WBC on the background of RLE cellulitis. Febrile but temperature below 38 degree C Resolved Patient has history of BLE cellulitis. On exam, chronic BLE skin changes/edematous, mostly non pitting. --> Lac hydrin lotion. Patient does have right heel superficial ulcer with surrounding erythema and tenderness, likely source of RLE cellulitis --> improved redness and tenderness 07/25 CT Rt foot:11mm skin ulceration w/ cellulitis, no evidence of OM/abscess Admitting blood culture- NG for 5 days. Admitting pro-Efraín 13.45 Wound care nurse on board, appreciate recommendation. Patient afebrile, WBC normal. ID evaluated: Cefepime 07/24 --> cefazolin 07/25-we will continue to finish 14 days course of antibiotic Pt will need OP wound care f/u. Pt made aware No worsening of the cellulitis and lower leg wounds Continue with the wound care as planned No more evidence of cellulitis and/or infection in the legs but has chronic skin changes as before Bilateral DVT Pulmonary embolism: likely secondary to above Patient has shortness of breath on presentation with tachycardia. Admitting bilateral venous Doppler: Positive for nonocclusive DVT Admitting CTA chest: Positive for right sided PE, no evidence of right heart strain noted. Anticoagulation (see above), Hb has stayed stable. 07/27 vascular surgery evaluated, no IVC filter recommendation at this time, reac h out if further significant bleeding occurs. Will need to be in touch with PCP for anticoagulation work-up and further discussion on anticoagulation treatment. Likely will need outpatient hematology. INR is not yet therapeutic is 1.4 today-we will continue with 5 mg on Coumadin daily INR is 3.4 as of 08/04/2021 INR is 4.0 today and will hold Coumadin and decrease the dose on discharge INR is 2.5 today and will try 3 mg Coumadin daily with frequent check of INR to dose Coumadin accordingly Presumed UTI UA suggestive, urine culture pending Patient denies any pain or burning while passing urine. Patient is on antibiotic for RLE cellulitis. CIERA over CKD stage III Baseline creatinine around 0.8-1 Admitting creatinine of 1.92, Resolved Monitor BMP daily and as appropriate. Kidney function has been normal Generalized weakness Fall Came in with fall with no obvious injury Remains generally weak and lethargic Uses 3 L oxygen at home Admitting CT head, C-spine CT, CXR reviewed. PT/OT evaluation tomorrow Other chronic medical conditions: Paroxysmal A. fib, diastolic CHF, COPD, DM on insulin therapy Continue with/resume home medications as and when appropriate. DVT prophylaxis: on coumadin (see above) INR is 1.2 today, will give 2.5 mg of Coumadin Received 5 mg of Coumadin yesterday 08/02/2017 We will continue 5 mg daily CODE STATUS: full code. Disposition: PT/OT, CM to assist with DC planning. Awaiting placement-stable to be transferred Admission and Anticipated Discharge Date Admission Date: July 23, 2021 Subjective 08/01/2021 The patient was seen and examined in telemetry unit She has been feeling much better but has not been coming out of bed due to leg pain to participate in physical therapy Denies any acute symptoms in bed She was strongly advised to participate in physical therapy to get better 08/02/2021 The patient was seen and examined in telemetry unit She has been feeling much better but has not had PT and OT evaluation is Denies any significant symptoms in bed 08/03/2021 Patient seen and examined in telemetry unit She has been feeling much better and denies any significant symptoms She has had PT and OT evaluation and recommended to go to rehab Awaiting placement 08/04/2021 Patient was seen and examined in telemetry unit She has been feeling much better and she is out of bed on a chair She denies any pain in the legs No shortness of breath and no palpitation, no abdominal pain nausea no vomiting 08/05/2021 The patient was seen and examined in telemetry unit She has been complaining of left knee pain Denies any other symptoms 08/06/2021 The patient was seen and examined in telemetry unit Her knee pain is much better today and she is sitting at the edge of the bed without any acute distress She wants to go home Awaiting placement Review of Systems Review of Systems: All systems reviewed and are unremarkable except as noted below Musculoskeletal: No more pain in the knee Physical Exam Physical Exam: Lying in bed without any acute distress Constitutional: well developed, well nourished and + morbidly obese; not ill appearing Eyes: PERRL, conjunctivae normal, anicteric sclerae ENMT: external ear and nose normal, oropharynx normal Neck: trachea midline, no thyromegaly Respiratory: no respiratory distress Auscultation: + diminished lung sounds and + crackles (Minimal crackles at the bases); no wheezes Cardiovascular: Rate/Rhythm: regular rate, regular rhythm and + tachycardic Heart Sounds: normal S1, normal S2 and + murmur (2/6 ESM over precordium) Extremities: + edema (Bilateral 1-2+ leg edema with chronic skin changes and cellulitis) Gastrointestinal (Abdomen): Inspection/Auscultation: + abdomen distended and normal bowel sounds Percussion/Palpation: abdomen soft; abdomen nontender Musculoskeletal: Minimal pain involving the left knee with movement Skin: Chronic skin changes both the legs. No evidence of acute infection Neurologic: CN's II-XI intact bilaterally and moves all extremities; no focal motor deficits Psychiatric: A+Ox3, euthymic affect Results & Data Results & Data ([facility]) Vital Signs (Past 12 Hours) Vital Signs Temp Pulse Pulse Resp BP BP Pulse Ox 08/06/21 07:44 36.6 C 67 22 123/55 L 99 08/06/21 04:38 36.7 C 80 22 113/55 L 98 08/06/21 00:00 66 08/05/21 22:27 36.2 C L 92 H 16 148/77 H 96 Laboratory Results Short CBC 08/06/21 Range/Units 06:32 WBC 5.63 (4.8-10.8) K/uL Hgb 7.8 L (12.0-16.0) g/dL Hct 26.6 L (37-47) % Plt Count 402 H (130-400) K/uL BMP 08/06/21 06:32 Sodium 139 Potassium 4.4 Chloride 99 Carbon Dioxide 38 H BUN 33 H Creatinine 0.92 Glucose 92 Calcium 8.8 Medications Administered Current Inpatient Medications Acetaminophen (Acetaminophen 325 Mg Tab) 650 mg PO Q6H PRN PRN Reason: Fever/pain Stop: 08/23/21 03:15 Last Admin: 08/03/21 03:15 Dose: 650 mg Documented by: Atorvastatin Calcium (Atorvastatin 20 Mg Tab) 20 mg PO DAILY [facility] Stop: 08/23/21 08:59 Last Admin: 08/06/21 07:42 Dose: 20 mg Documented by: Dextrose (Dextrose 50% 50 Ml Syringe) 25 - 50 ml IV UD PRN; Protocol PRN Reason: Hypoglycemia Protocol Stop: 08/22/21 19:59 Fish Oil ([place]-3 (Purified Fish Oil) 1 Gm Cap) 1 gm PO BID [facility] Stop: 08/22/21 20:59 Last Admin: 08/06/21 07:41 Dose: 1 gm Documented by: Glucagon (Glucagon For Inj 1 Mg Vial) 1 mg IM UD PRN; Protocol PRN Reason: Hypoglycemia Protocol Stop: 08/22/21 19:59 Glucose (Glucose 40% Gel 15 Gm Tube) 15 - 30 gm PO UD PRN; Protocol PRN Reason: Hypoglycemia Protocol Stop: 08/22/21 19:59 Glucose (Glucose 10 Tabs/Tube) 4 - 8 tabs PO UD PRN; Protocol PRN Reason: Hypoglycemia Protocol Stop: 08/22/21 19:59 Insulin Aspart (Insulin Aspart Per Unit) 0 units SC ACHS [facility] Stop: 08/25/21 11:59 Last Admin: 08/06/21 07:54 Dose: 13 units Documented by: Insulin Glargine (Insulin Glargine Solostar 100 Units/Ml 3 Ml Pen) 25 units SC BID [facility]; Protocol Stop: 08/28/21 08:59 Last Admin: 08/06/21 07:54 Dose: 25 units Documented by: Lactic Acid (Ammonium Lactate 12% Lotion 225 Gm Btl) 1 gm EXT BID [facility] Stop: 08/23/21 20:59 Last Admin: 08/06/21 09:00 Dose: 1 gm Documented by: Magnesium Chloride (Magnesium Chloride 64mg Delayed Rel Tab) 64 mg PO DAILY [facility] Stop: 08/23/21 08:59 Last Admin: 08/06/21 07:41 Dose: 64 mg Documented by: Miconazole Nitrate (Miconazole Nitrate Powder 43 Gm) 1 appln EXT BID [facility] Stop: 08/23/21 06:24 Last Admin: 08/06/21 09:01 Dose: 1 appln Documented by: Miscellaneous (Carbohydrates For Hypoglycemia ) 15 - 30 gm PO UD PRN PRN Reason: Hypoglycemia Treatment Stop: 08/22/21 19:59 Miscellaneous Information (Pharmacy Glycemic Mgmt Consult) 1 ea N/A UD PRN PRN Reason: Consult Stop: 08/24/21 17:37 Pantoprazole Sodium (Pantoprazole 40 Mg Tab) 40 mg PO BID [facility] Stop: 08/30/21 08:59 Last Admin: 08/06/21 07:41 Dose: 40 mg Documented by: Potassium Chloride (Potassium Chloride 10 Meq Tabcr) 10 meq PO DAILY [facility] Stop: 08/23/21 08:59 Last Admin: 08/06/21 07:41 Dose: 10 meq Documented by: Warfarin Sodium (Warfarin Sod 3 Mg Tab) 3 mg PO DAILY@1600 [facility] Stop: 09/05/21 15:59
--- NOTE | 2021-08-06 13:25 | Pharmacy Report ---
Pharmacy Glycemic Short Note 2 - Date of Service August 06, 2021 - Glycemic Short BSG Results (Last 24 hours): 08/05/21 08/05/21 08/06/21 16:02 20:20 06:32 Glucose 92 POC Glucose 118 H 151 H 08/06/21 08/06/21 07:28 11:16 Glucose POC Glucose 114 H 172 H OUTPATIENT ANTIDIABETIC REGIMEN: * Novolog 10 units AC * Lantus 50 units daily ASSESSMENT: 08/06: * BSGs well controlled within the last 48hr. Fasting BSGs have been 91 and 114mg/dL. Prandial BSGs less than 180mg/dL. * Tolerating diet, other stressors stable * No changes made to basal or prandial insulin - continue Lantus 25unit BID and Novolog ACHS with 04/17.5 CF/CR. 08/04: * Fasting BSG significantly higher today, will monitor for trend before adjusting basal dose given discrepancy. I did confirm with RN that the blood glucose value of 247mg/dL was postprandial. * CR was tightened slightly today and patient continues to tolerate a diet. 08/03: * BSGs reasonably well controlled on current regimen. Fasting BSG very well controlled at 108mg/dL today. Will monitor trend to ensure this does not keep downtrending. Will continue with current novolog scale. May consider tightening CR slightly tomorrow. Patient is tolerating a diet. 07/31 * BSGs well controlled yesterday with current regimen * Fasting BSG 182 with 50 units basal on board. Of note, yesterday's fasting BSG 144 on same Lantus dose. GLU on this AM's chemistry 106. Will not increase basal insulin dose in response to today's fasting BSG. * All post-prandial BSGs at goal yesterday. Today's prelunch BSG elevated, however, considering pre-breakfast BSG was elevated the climb in BSG was not substantial. Will continue same CF and CR, plan to trend post-prandial BSGs 07/29 * BSGs still mildly elevated * Fasting BSG acceptable this AM w/ 50 units basal on board - will continue the same for next 24 hrs * Post-prandial BSGs elevated 3 of 3 yesterday and again mildly elevated pre- lunch today, will increase prandial insulin dose somewhat PLAN FOR INPATIENT GLYCEMIC CONTROL: * Basal insulin * Lantus 25 units SQ BID * Bolus insulin * NovoLog per scale ACHS * Goal Range: Low 110 mg/dL - High 140 mg/dL * Correction Factor: 12 mg/dL/unit * Nutritional / Prandial insulin per carb ratio of 1 unit per 3.5 grams CHO consumed
[2021-08-06] MEDS ORDERED: WARFARIN SOD 3 MG TAB PO SCH (16:00)
[2021-08-07 06:44] LABS: Hematocrit (blood only) 27.4 % (37-47)
[2021-08-07] MEDS: AMMONIUM LACTATE 12% LOTION 225 GM BTL EXT SCH (07:13)
[2021-08-07] MEDS: OMEGA-3 (PURIFIED FISH OIL) 1 GM CAP PO SCH (07:14)
[2021-08-07] MEDS: MICONAZOLE NITRATE POWDER 43 GM EXT SCH (07:14)
[2021-08-07] MEDS: PANTOprazole 40 MG TAB PO SCH (07:14)
[2021-08-07] MEDS: MAGNESIUM CHLORIDE 64MG DELAYED REL TAB PO SCH (07:14)
[2021-08-07] MEDS: ATORVASTATIN 20 MG TAB PO SCH (07:14)
[2021-08-07] MEDS: POTASSIUM CHLORIDE 10 MEQ TABCR PO SCH (07:15)
[2021-08-07 07:18] LABS: INR 2.4 (0.9-1.1); Prothrombin Time 24.5 Seconds (9.0-12.0)
[2021-08-07] MEDS: INSULIN ASPART PER UNIT SC SCH ×2 (08:28→12:00)
[2021-08-07] MEDS: INSULIN GLARGINE SOLOSTAR 100 UNITS/ML 3 ML PEN SC SCH (08:29)
--- NOTE | 2021-08-07 08:46 | Hospitalist Progress Note ---
Date of Service August 07, 2021 Assessment & Plan (1) Sepsis: (2) Pulmonary embolism: Plan: 74 years old and morbidly obese female w/ PMH of KENAN, paroxysmal atrial fibrillation, type 2 diabetes on insulin, hypertension, diastolic CHF, hyperlipidemia, GERD, pulmonary hypertension, apparently was brought into the ER 07/23 by the EMS following a fall at home. She lives with her son who found her in between bed and dresser after coming back from work. She is being managed for the following: GI bleed 07/25,EGD scope 07/27 with 2 superficial ulcers in duodenal bulb, larger one empirically Acute blood loss anemia: / above Patient reports having no GI doctor as an outpatient, denies any colonoscopy in the past Patient has been on heparin drip for dvt and PE for 2 days as of 07/25 Hemoglobin dropped to 7.3 on 07/25 from 11.1 on admission s/p 1 unit, Hb stable lately. HnH Q12H and as appropriate-hemoglobin remains stable as of 08/01/2021 at 8.2 Anticoagulation: While on heparin drip, Warfarin initiated at 5 mg dose on 07/29 INR >2.0 on 07/30 AM, Coumadin dose decreased to 1 mg on 07/30 INR 6.0 on 07/31 AM, iv 2.5 mg Vit K given, d/w with Dr. Thomas about the situation, PT/INR repeated at 4 hour of iv vit K, INR came back 2.2 INR today is 1.3 and will restart Coumadin at 1 mg daily PPI drip transitioned to PO on 07/31/2021. GI: EGD scope 07/27 with 2 superficial ulcers in duodenal bulb, larger one empi rically clipped. Continue with anticoagulation. Hemoglobin dropped to 7.7 without any symptoms and now no evidence of bleeding Hemoglobin remains stable at 8.2 Remains medically stable to be discharged from the hospital She wants to go home Awaiting placement Pulmonary edema - likely iatrogenic Patient oxygen at home 3 L per patient Patient currently on 3 L but seems to have labored breathing today Patient has got multiple fluids and blood transfusion. Repeat CXR 07/26 reveals increasing vascular congestion in the lungs. 07/26/21 echo [due to PE]: Ejection fraction 60 to 65% with normal left ventricular structure and function. Moderate concentric LVH. s/p small dose iv lasix on 07/26, pt doing well, closely monitor for volume overload. No signs and/or symptoms of fluid overload Cellulitis RLE Sepsis POA: At presentation, tachycardic and with elevated WBC on the background of RLE cellulitis. Febrile but temperature below 38 degree C Resolved Patient has history of BLE cellulitis. On exam, chronic BLE skin changes/edematous, mostly non pitting. --> Lac hydrin lotion. Patient does have right heel superficial ulcer with surrounding erythema and tenderness, likely source of RLE cellulitis --> improved redness and tenderness 07/25 CT Rt foot:11mm skin ulceration w/ cellulitis, no evidence of OM/abscess Admitting blood culture- NG for 5 days. Admitting pro-Efraín 13.45 Wound care nurse on board, appreciate recommendation. Patient afebrile, WBC normal. ID evaluated: Cefepime 07/24 --> cefazolin 07/25-we will continue to finish 14 days course of antibiotic Pt will need OP wound care f/u. Pt made aware No worsening of the cellulitis and lower leg wounds Continue with the wound care as planned No more evidence of cellulitis and/or infection in the legs but has chronic skin changes as before Her leg cellulitis has improved a lot-strongly advised to keep it dry and moist Bilateral DVT Pulmonary embolism: likely secondary to above Patient has shortness of breath on presentation with tachycardia. Admitting bilateral venous Doppler: Positive for nonocclusive DVT Admitting CTA chest: Positive for right sided PE, no evidence of right heart strain noted. Anticoagulation (see above), Hb has stayed stable. 07/27 vascular surgery evaluated, no IVC filter recommendation at this time, reach out if further significant bleeding occurs. Will need to be in touch with PCP for anticoagulation work-up and further discussion on anticoagulation treatment. Likely will need outpatient hematology. INR is not yet therapeutic is 1.4 today-we will continue with 5 mg on Coumadin daily INR is 3.4 as of 08/04/2021 INR is 4.0 today and will hold Coumadin and decrease the dose on discharge INR is 2.5 today and will try 3 mg Coumadin daily with frequent check of INR to dose Coumadin accordingly INR remains therapeutic at 2.4 and will continue 3 mg Coumadin daily Presumed UTI UA suggestive, urine culture pending Patient denies any pain or burning while passing urine. Patient is on antibiotic for RLE cellulitis. CIERA over CKD stage III Baseline creatinine around 0.8-1 Admitting creatinine of 1.92, Resolved Monitor BMP daily and as appropriate. Kidney function has been normal Generalized weakness Fall Came in with fall with no obvious injury Remains generally weak and lethargic Uses 3 L oxygen at home Admitting CT head, C-spine CT, CXR reviewed. PT/OT evaluation tomorrow Other chronic medical conditions: Paroxysmal A. fib, diastolic CHF, COPD, DM on insulin therapy Continue with/resume home medications as and when appropriate. DVT prophylaxis: on coumadin (see above) INR is 1.2 today, will give 2.5 mg of Coumadin Received 5 mg of Coumadin yesterday 08/02/2017 We will continue 5 mg daily CODE STATUS: full code. Disposition: PT/OT, CM to assist with DC planning. Awaiting placement-stable to be transferred Admission and Anticipated Discharge Date Admission Date: July 23, 2021 Subjective 08/01/2021 The patient was seen and examined in telemetry unit She has been feeling much better but has not been coming out of bed due to leg pain to participate in physical therapy Denies any acute symptoms in bed She was strongly advised to participate in physical therapy to get better 08/02/2021 The patient was seen and examined in telemetry unit She has been feeling much better but has not had PT and OT evaluation is Denies any significant symptoms in bed 08/03/2021 Patient seen and examined in telemetry unit She has been feeling much better and denies any significant symptoms She has had PT and OT evaluation and recommended to go to rehab Awaiting placement 08/04/2021 Patient was seen and examined in telemetry unit She has been feeling much better and she is out of bed on a chair She denies any pain in the legs No shortness of breath and no palpitation, no abdominal pain nausea no vomiting 08/05/2021 The patient was seen and examined in telemetry unit She has been complaining of left knee pain Denies any other symptoms 08/06/2021 The patient was seen and examined in telemetry unit Her knee pain is much better today and she is sitting at the edge of the bed without any acute distress She wants to go home Awaiting placement 08/07/2021 The patient was seen and examined in telemetry unit She has been feeling much better and wants to go home Denies any significant symptoms and her legs are much better Physical Exam Physical Exam: Lying in bed without any acute distress Constitutional: well developed, well nourished and + morbidly obese; not ill appearing Eyes: PERRL, conjunctivae normal, anicteric sclerae ENMT: external ear and nose normal, oropharynx normal Neck: trachea midline, no thyromegaly Respiratory: no respiratory distress Auscultation: + diminished lung sounds and + crackles (Minimal crackles at the bases); no wheezes Cardiovascular: Rate/Rhythm: regular rate, regular rhythm and + tachycardic Heart Sounds: normal S1, normal S2 and + murmur (2/6 ESM over precordium) Extremities: + edema (Bilateral 1-2+ leg edema with chronic skin changes and cellulitis) Gastrointestinal (Abdomen): Inspection/Auscultation: + abdomen distended and normal bowel sounds Percussion/Palpation: abdomen soft; abdomen nontender Musculoskeletal: No acute arthritis in any joint Skin: Chronic skin changes in bilateral leg cellulitis much improved Neurologic: CN's II-XI intact bilaterally and moves all extremities; no focal motor deficits Psychiatric: A+Ox3, euthymic affect Results & Data Results & Data ([facility]) Vital Signs (Past 12 Hours) Vital Signs Temp Pulse Pulse Pulse Resp BP Pulse Ox 08/07/21 07:06 36.4 C L 90 18 98 08/07/21 06:57 70 08/07/21 04:11 36.9 C 76 20 119/63 98 08/07/21 00:34 36.5 C 67 18 123/59 L 99 08/06/21 23:18 65 Laboratory Results Short CBC 08/07/21 Range/Units 06:17 Hgb 8.0 L (12.0-16.0) g/dL Hct 27.4 L (37-47) % Medications Administered Current Inpatient Medications Acetaminophen (Acetaminophen 325 Mg Tab) 650 mg PO Q6H PRN PRN Reason: Fever/pain Stop: 08/23/21 03:15 Last Admin: 08/03/21 03:15 Dose: 650 mg Documented by: Atorvastatin Calcium (Atorvastatin 20 Mg Tab) 20 mg PO DAILY [facility] Stop: 08/23/21 08:59 Last Admin: 08/07/21 07:14 Dose: 20 mg Documented by: Dextrose (Dextrose 50% 50 Ml Syringe) 25 - 50 ml IV UD PRN; Protocol PRN Reason: Hypoglycemia Protocol Stop: 08/22/21 19:59 Fish Oil ([place]-3 (Purified Fish Oil) 1 Gm Cap) 1 gm PO BID [facility] Stop: 08/22/21 20:59 Last Admin: 08/07/21 07:14 Dose: 1 gm Documented by: Glucagon (Glucagon For Inj 1 Mg Vial) 1 mg IM UD PRN; Protocol PRN Reason: Hypoglycemia Protocol Stop: 08/22/21 19:59 Glucose (Glucose 40% Gel 15 Gm Tube) 15 - 30 gm PO UD PRN; Protocol PRN Reason: Hypoglycemia Protocol Stop: 08/22/21 19:59 Glucose (Glucose 10 Tabs/Tube) 4 - 8 tabs PO UD PRN; Protocol PRN Reason: Hypoglycemia Protocol Stop: 08/22/21 19:59 Insulin Aspart (Insulin Aspart Per Unit) 0 units SC ACHS [facility] Stop: 08/25/21 11:59 Last Admin: 08/07/21 08:28 Dose: 13 units Documented by: Insulin Glargine (Insulin Glargine Solostar 100 Units/Ml 3 Ml Pen) 25 units SC BID [facility]; Protocol Stop: 08/28/21 08:59 Last Admin: 08/07/21 08:29 Dose: 25 units Documented by: Lactic Acid (Ammonium Lactate 12% Lotion 225 Gm Btl) 1 gm EXT BID [facility] Stop: 08/23/21 20:59 Last Admin: 08/07/21 07:13 Dose: 1 gm Documented by: Magnesium Chloride (Magnesium Chloride 64mg Delayed Rel Tab) 64 mg PO DAILY [facility] Stop: 08/23/21 08:59 Last Admin: 08/07/21 07:14 Dose: 64 mg Documented by: Miconazole Nitrate (Miconazole Nitrate Powder 43 Gm) 1 appln EXT BID [facility] Stop: 08/23/21 06:24 Last Admin: 08/07/21 07:14 Dose: 1 appln Documented by: Miscellaneous (Carbohydrates For Hypoglycemia ) 15 - 30 gm PO UD PRN PRN Reason: Hypoglycemia Treatment Stop: 08/22/21 19:59 Miscellaneous Information (Pharmacy Glycemic Mgmt Consult) 1 ea N/A UD PRN PRN Reason: Consult Stop: 08/24/21 17:37 Pantoprazole Sodium (Pantoprazole 40 Mg Tab) 40 mg PO BID [facility] Stop: 08/30/21 08:59 Last Admin: 08/07/21 07:14 Dose: 40 mg Documented by: Potassium Chloride (Potassium Chloride 10 Meq Tabcr) 10 meq PO DAILY [facility] Stop: 08/23/21 08:59 Last Admin: 08/07/21 07:15 Dose: 10 meq Documented by: Warfarin Sodium (Warfarin Sod 3 Mg Tab) 3 mg PO DAILY@1600 [facility] Stop: 09/05/21 15:59 Last Admin: 08/06/21 16:39 Dose: 3 mg Documented by:
--- NOTE | 2021-08-07 15:09 | Discharge Summary ---
Date of Service August 07, 2021 Admission HPI Per Admitting Provider She is a 74 years old and morbidly obese female with significant past medical history of KENAN, paroxysmal atrial fibrillation, type 2 diabetes on insulin, hypertension, diastolic CHF, hyperlipidemia, GERD, pulmonary hypertension, apparently was brought into the ER by the EMS following a fall at home. She lives with her son and the son found her in between bed and the dresser when he came back from work and called EMS who brought her to the emergency room. She has been pleasantly confused and could not get any significant history from her. History is taken from his son. She has been living with her son and for the last few weeks she has been sleeping on the chair and her ambulation has been decreased due to generalized weakness and may have some shortness of breath. She did not complain any pain, any known fever and/or chills, any nausea and or vomiting. And the son did not notice any increasing swelling and/or cellulitis involving the legs. In the emergency room she was noted to have tachycardia, tachypnea, temperature of 37.6 with a white count of 19.25 and urine suggestive of infection. She also was noted to have pulmonary embolism and has bilateral leg cellulitis. She was started with intravenous heparin and also cefepime to cover UTI and bilateral leg cellulitis and was admitted to telemetry unit for continuation of care. Admission Exam Per Admitting Provider Physical Exam: Lying in bed without any acute distress Constitutional: well developed, well nourished and + morbidly obese; not ill appearing Eyes: PERRL, conjunctivae normal, anicteric sclerae ENMT: external ear and nose normal, oropharynx normal Neck: trachea midline, no thyromegaly Respiratory: no respiratory distress Auscultation: + diminished lung sounds and + crackles (Minimal crackles at the bases); no wheezes Cardiovascular: Rate/Rhythm: regular rate, regular rhythm and + tachycardic Heart Sounds: normal S1, normal S2 and + murmur (2/6 ESM over precordium) Extremities: + edema (Bilateral 1-2+ leg edema with chronic skin changes and cellulitis) Gastrointestinal (Abdomen): Inspection/Auscultation: + abdomen distended and normal bowel sounds Percussion/Palpation: abdomen soft; abdomen nontender Musculoskeletal: No acute arthritis in any joint Skin: Chronic skin changes in bilateral leg cellulitis much improved Neurologic: CN's II-XI intact bilaterally and moves all extremities; no focal motor deficits Psychiatric: A+Ox3, euthymic affect Principal Diagnosis Pulmonary embolism, bilateral lower extremity DVT ,bilateral leg cellulitis with sepsis, chronic kidney disease, upper GI bleed secondary to gastric ulcer, paroxysmal atrial fibrillation Discharge Exam Lying in bed without any acute distress Constitutional well developed, well nourished and + morbidly obese; not ill appearing Eyes PERRL, conjunctivae normal, anicteric sclerae ENMT external ear and nose normal, oropharynx normal Neck trachea midline, no thyromegaly Respiratory no respiratory distress Auscultation: + diminished lung sounds and + crackles (Minimal crackles at the bases); no wheezes Cardiovascular Rate/Rhythm: regular rate, regular rhythm and + tachycardic Heart Sounds: normal S1, normal S2 and + murmur (2/6 ESM over precordium) Extremities: + edema (Bilateral 1-2+ leg edema with chronic skin changes and cellulitis) Gastrointestinal (Abdomen) Inspection/Auscultation: + abdomen distended and normal bowel sounds Percussion/Palpation: abdomen soft; abdomen nontender Neurologic CN's II-XI intact bilaterally and moves all extremities; no focal motor deficits Psychiatric A+Ox3, euthymic affect Discharge Data Allergies Allergy/AdvReac Type Severity Reaction Status Date / Time No Known Allergies Allergy Mild Verified 07/23/21 18:29 Consultations 07/24/21 13:21 Consult Infectious Diseases Routine 07/25/21 08:54 Consult Gastroenterology Routine Consult Vascular Surgery Routine 07/25/21 14:38 Consult Astronomy Instructor Routine Procedures Performed Operation Date: 07/27/21 17:00 Actual Procedures p EGD Hemostasis - Anai Bolanos MD Ordered Studies 07/23/21 13:30 CT head/brain wo con Stat 07/23/21 13:31 CT cervical spine wo con Stat 07/23/21 16:29 CT angio chest PE protocol Stat 07/23/21 18:19 US venous doppler LE BI Urgent 07/25/21 08:02 CT abd pelvis wo con Routine CT chest diagnostic wo con Routine 07/25/21 08:47 CT foot RT wo con Routine 07/30/21 11:10 CT head/brain wo con Routine Diabetes Follow up Diabetes Follow-up Needed for HgbA1c >9% Hospital Course (1) Sepsis: (2) Pulmonary embolism: 74 years old and morbidly obese female w/ PMH of KENAN, paroxysmal atrial fibrillation, type 2 diabetes on insulin, hypertension, diastolic CHF, hyperlipidemia, GERD, pulmonary hypertension, apparently was brought into the ER 07/23 by the EMS following a fall at home. She lives with her son who found her in between bed and dresser after coming back from work. She is being managed for the following: GI bleed 07/25,EGD scope 07/27 with 2 superficial ulcers in duodenal bulb, larger one empirically Acute blood loss anemia: 2/ above Patient reports having no GI doctor as an outpatient, denies any colonoscopy in the past Patient has been on heparin drip for dvt and PE for 2 days as of 07/25 Hemoglobin dropped to 7.3 on 07/25 from 11.1 on admission s/p 1 unit, Hb stable lately. HnH Q12H and as appropriate-hemoglobin remains stable as of 08/01/2021 at 8.2 Anticoagulation: While on heparin drip, Warfarin initiated at 5 mg dose on 07/29 INR >2.0 on 07/30 AM, Coumadin dose decreased to 1 mg on 07/30 INR 6.0 on 07/31 AM, iv 2.5 mg Vit K given, d/w with Dr. Thomas about the situation, PT/INR repeated at 4 hour of iv vit K, INR came back 2.2 INR today is 1.3 and will restart Coumadin at 1 mg daily PPI drip transitioned to PO on 07/31/2021. GI: EGD scope 07/27 with 2 superficial ulcers in duodenal bulb, larger one empirically clipped. Continue with anticoagulation. Hemoglobin dropped to 7.7 without any symptoms and now no evidence of bleeding Hemoglobin remains stable at 8.2 Remains medically stable to be discharged from the hospital She wants to go home Awaiting placement Pulmonary edema - likely iatrogenic Patient oxygen at home 3 L per patient Patient currently on 3 L but seems to have labored breathing today Patient has got multiple fluids and blood transfusion. Repeat CXR 07/26 reveals increasing vascular congestion in the lungs. 07/26/21 echo [due to PE]: Ejection fraction 60 to 65% with normal left ventricular structure and function. Moderate concentric LVH. s/p small dose iv lasix on 07/26, pt doing well, closely monitor for volume overload. No signs and/or symptoms of fluid overload Cellulitis RLE Sepsis POA: At presentation, tachycardic and with elevated WBC on the background of RLE cellulitis. Febrile but temperature below 38 degree C Resolved Patient has history of BLE cellulitis. On exam, chronic BLE skin changes/edematous, mostly non pitting. --> Lac hydrin lotion. Patient does have right heel superficial ulcer with surrounding erythema and tenderness, likely source of RLE cellulitis --> improved redness and tenderness 07/25 CT Rt foot:11mm skin ulceration w/ cellulitis, no evidence of OM/abscess Admitting blood culture- NG for 5 days. Admitting pro-Efraín 13.45 Wound care nurse on board, appreciate recommendation. Patient afebrile, WBC normal. ID evaluated: Cefepime 07/24 --> cefazolin 07/25-we will continue to finish 14 days course of antibiotic Pt will need OP wound care f/u. Pt made aware No worsening of the cellulitis and lower leg wounds Continue with the wound care as planned No more evidence of cellulitis and/or infection in the legs but has chronic skin changes as before Her leg cellulitis has improved a lot-strongly advised to keep it dry and moist Bilateral DVT Pulmonary embolism: likely secondary to above Patient has shortness of breath on presentation with tachycardia. Admitting bilateral venous Doppler: Positive for nonocclusive DVT Admitting CTA chest: Positive for right sided PE, no evidence of right heart strain noted. Anticoagulation (see above), Hb has stayed stable. 07/27 vascular surgery evaluated, no IVC filter recommendation at this time, reach out if further significant bleeding occurs. Will need to be in touch with PCP for anticoagulation work-up and further discussion on anticoagulation treatment. Likely will need outpatient hematology. INR is not yet therapeutic is 1.4 today-we will continue with 5 mg on Coumadin daily INR is 3.4 as of 08/04/2021 INR is 4.0 today and will hold Coumadin and decrease the dose on discharge INR is 2.5 today and will try 3 mg Coumadin daily with frequent check of INR to dose Coumadin accordingly INR remains therapeutic at 2.4 and will continue 3 mg Coumadin daily Presumed UTI UA suggestive, urine culture pending Patient denies any pain or burning while passing urine. Patient is on antibiotic for RLE cellulitis. ICERA over CKD stage III Baseline creatinine around 0.8-1 Admitting creatinine of 1.92, Resolved Monitor BMP daily and as appropriate. Kidney function has been normal Generalized weakness Fall Came in with fall with no obvious injury Remains generally weak and lethargic Uses 3 L oxygen at home Admitting CT head, C-spine CT, CXR reviewed. PT/OT evaluation tomorrow Other chronic medical conditions: Paroxysmal A. fib, diastolic CHF, COPD, DM on insulin therapy Continue with/resume home medications as and when appropriate. DVT prophylaxis: on coumadin (see above) INR is 1.2 today, will give 2.5 mg of Coumadin Received 5 mg of Coumadin yesterday 08/02/2017 We will continue 5 mg daily CODE STATUS: full code. Disposition: PT/OT, CM to assist with DC planning. Awaiting placement-stable to be transferred Total Time Total Time Spent Total Time Spent (In Minutes): 40 minutes Discharge Plan Discharge Items Patient Disposition: Home - Home Health Services Reason For Visit: PULMONARY EMBOLISM, UTI, DEBRA LEG CELLULITIS Discharge Diagnosis: Pulmonary embolism, bilateral lower extremity DVT ,bilateral leg cellulitis with sepsis, chronic kidney disease, upper GI bleed secondary to gastric ulcer, paroxysmal atrial fibrillation Condition on Discharge: Good Activity: Resume your previous activity Non-emergency contact: Primary Care Provider Call non-emergency contact if: you have any medication questions and your symptoms worsen Follow-up/Referrals: Tasneem Francisco DO [Primary Care Provider] - (Date & Time 08/13/2021 11:00 AM Provider Tasneem Francisco DO Department [facility] ) Diet: Carb Consistent or DM2 Diet Texture: Dental soft (bite-sized) Addtl Attending Provider Instructions: Please take precautions to avoid falls Please keep your legs clean and dry and apply ammonium lactate 12% lotion twice daily Take your medications regularly specially Coumadin and have regular follow-up with coagulation clinic Continue with PT You are not getting any routine fluid pill like Lasix and you may need that. Please discussed that with your primary care physician when you see her Pending Studies at Discharge: No Stand-Alone Forms: My [facility] [employer] Smoking Cessation Medications and DC Order Prescriptions: New warfarin 3 mg Tablet 3 mg PO DAILY@1600 30 Days Qty: 30 RF: 0 Desenex 2 % Powder 1 applic EXT BID 30 Days Qty: 1 RF: 0 pantoprazole 40 mg Tablet,Delayed Release (Dr/Ec) 40 mg PO BID 30 Days Qty: 60 RF: 0 Lac-Hydrin Five 5 % Lotion 1 g EXT BID 30 Days Qty: 1 RF: 0 Mag 64 64 mg Tablet,Delayed Release (Dr/Ec) 64 mg PO DAILY 30 Days Qty: 30 RF: 0 Continued atorvastatin [Lipitor] 20 mg tablet 20 mg PO DAILY RF: 0 ferrous sulfate 325 mg (65 mg iron) tablet 325 mg PO DAILY RF: 0 potassium chloride 10 mEq tablet extended release 10 meq PO DAILY RF: 0 Novolin R Flexpen 100 unit/mL (3 mL) insulin pen 10 unit SUBCUT AC RF: 0 omega 0-emh-dlk-fish oil [Fish Oil] 1,000 mg (120 mg-180 mg) Capsule 1 cap PO BID RF: 0 cinnamon bark [Cinnamon] 500 mg Capsule 500 mg PO DAILY RF: 0 multivitamin [Multi-Vitamins] Tablet 1 tab PO DAILY RF: 0 Lantus Solostar U-100 Insulin 100 unit/mL (3 mL) insulin pen 50 unit subcut QAM Qty: 0 RF: 0 Discontinued lisinopril 5 mg tablet 5 mg PO DAILY RF: 0 aspirin 81 mg tablet,chewable 81 mg PO DAILY RF: 0 Discharge Orders: Discharge Order (Routine); Ordered 08/07/21 Ordered By: Polly Wills/Other Patient Handouts: High Blood Sugar (Hyperglycemia), Managing Type 2 Diabetes Admission Data Admit Date/Time: 07/23/21 18:16 Attending Provider: Tre Sandoval Admit Provider: Polly Patel Primary Care Provider: Tasneem Francisco Other Providers: Armando Valdes ; Cookie Garcia ; Franko Alejandro I. ; Rubens Barnes II ; Bozena Gonzales ; Robert Bazan ; Daniel Alarcon ; Anai Bolanos ; Oscar Bloom ; Jaren Penn ; Ramana Singh ; Elba Staples [facility] ; [facility] Other Interventions: Discharge Summary Assessment (RN) Last Done: 07/27/21 09:58
== END 2021-08-07 15:58 | disposition home health service (06) | DRG 871 ==
LOC: ED 13:11 → 2E 18:16 → SUATTDRO 18:16 → 2E 18:46 → 1E 07-25 15:00 → 2E 07-26 14:19

== ENCOUNTER 2021-08-11 13:18 | Inpatient (IN) ==
[2021-08-11 14:00] LABS: Basophils # (auto) 0.02 K/uL (0-0.2); Basophils % (auto) 0.3 %; Eosinophils # (auto) 0.15 K/uL (0-0.5); Eosinophils % (auto) 2.1 %; Hematocrit (blood only) 26.7 % (37-47); Hemoglobin 7.9 g/dL (12.0-16.0); Immature Granulocytes # (auto) 0.02 K/uL (0.00-0.02); Immature Granulocytes % (auto) 0.3 %; Lymphocytes # (auto) 1.35 K/uL (1.2-3.4); Lymphocytes % (auto) 18.9 %; Mean Corpuscular Hemoglobin 27.9 pg (25-34); Mean Corpuscular Hgb Conc 29.6 g/dL (32-36); Mean Corpuscular Volume 94.3 fL (80-100); Mean Platelet Volume 9.2 fL (7.4-10.4); Monocytes # (auto) 0.64 K/uL (0.11-0.59); Monocytes % (auto) 8.9 %; Neutrophils # (auto) 4.98 K/uL (1.4-6.5); Neutrophils % (auto) 69.5 %; Platelet Count 351 K/uL (130-400); RDW Coefficient of Variation 15.8 % (11.5-14.5); RDW Standard Deviation 54.6 fL (36.4-46.3); Red Blood Count 2.83 M/uL (4.2-5.4); White Blood Count 7.16 K/uL (4.8-10.8)
[2021-08-11] MEDS ORDERED: DAPTOmycin 550 MG in SYRINGE 0 ML IV STA (14:23)
[2021-08-11] MEDS ORDERED: PIPERACILLIN/TAZOBACTAM 4.5 GM/120 ML BAG IV STA (14:23)
--- NOTE | 2021-08-11 14:36 | Emergency Department Note ---
Impression & Plan Weakness, Cellulitis, Failure of outpatient treatment, Pedal edema, Anemia ED Provider Note NAME: JOHAN PARTIDA AGE: 75 SEX: F : 1945 ARRIVES VIA: Ambulance INFORMANT: [Patient] ED PROVIDER(S): [Glenn Deal MD] CHIEF COMPLAINT: Weakness, leg swelling HISTORY OF PRESENT ILLNESS: The patient is a 75-year-old male who was recently in our hospital and discharged about 4 days ago. She was in for sepsis, cellulitis, DVT, PE, GI bleeding, heart failure. Discharge to a care center was recommended however, patient did go home. The patient states that since being home, she has no strength, no energy. She cannot do anything on her own like she could before. She also has had increased swelling of her legs and now, the right heel is more red and open and draining a foul liquid. There has been no fever, no chest pain, no vomiting, no shortness of breath. She has not fallen again since her last hospitalization. REVIEW OF SYSTEMS: See HPI for pertinent positives and negatives. A total of ten systems were reviewed and were otherwise negative. PMHx/PSHx: See Below SOCIAL HISTORY: See Below. PHYSICAL EXAM: GENERAL: Patient is in no acute distress. HEENT: No acute trauma, normocephalic atraumatic, mucous membranes moist, no nasal congestion, no scleral icterus. NECK: No stridor, no adenopathy, no meningismus, trachea is midline. LUNGS: Clear to auscultation bilaterally when listening anterior, no wheeze, no rhonchi, breath sounds equal. HEART: 2/6 systolic murmur, mildly tachycardic, irregular rhythm. ABDOMEN: Soft, nontender, bowel sounds positive, no hernias, no peritonitis. EXTREMITIES: No cyanosis. Marked bilateral pedal edema. There is erythema to both lower extremities, worse on the right. There is some slight warmth, again worse on the right. The patient has a foul-smelling draining purulent ulcer to the right posterior heel. NEUROLOGIC: Oriented x 3, no acute motor or sensory deficits, no focal weakness. SKIN: No jaundice, no diaphoresis. DIFFERENTIAL DIAGNOSIS: Infection, sepsis, bacteremia, osteomyelitis, dehydration, metabolic abnormality, hypo/hyperglycemia, electrolyte disturbance, anemia, hypoxia, cardiac sources, intracerebral event, toxicologic issues, stroke, TIA, as well as other pathologies. EMERGENCY DEPARTMENT COURSE/PROCEDURES: MEDICAL DECISION MAKING: There is no leukocytosis. The patient is anemic however, she has been anemic lately when looking back at previous testing. There was a normal platelet count. INR was 1.2, very mildly elevated. There was no renal failure. Magnesium was low at 1.1. Lactic acid level was not elevated making severe sepsis less likely. Covid test returned negative. No concerning liver enzyme elevation. Right foot CT did not show osteomyelitis, a cellulitis was noted. The patient received IV Zosyn and IV daptomycin as antibiotic coverage. The patient was just discharged from our hospital. She is not doing well. She is likely going to need chcf placement. Her right heel wound does have a foul odor and discharge today. Luckily, no osteomyelitis by CT imaging. I spoke with the patient and case management. The patient understands the reason for a repeat hospitalization. The on-call hospitalist was consulted. Past Med/Surg History Medical History Aortic valve stenosis CKD (chronic kidney disease) stage 3, GFR 30-59 ml/min Diabetes Diastolic CHF Dyslipidemia GERD (gastroesophageal reflux disease) HTN (hypertension) Morbid obesity with BMI of 50.0-59.9, adult Obstructive sleep apnea Paroxysmal A-fib Pulmonary HTN Vitamin D deficiency Surgical History (Updated 08/11/21 @ 19:26 by Monique Madrid PA-C) History of cardiac cath Hx of total knee arthroplasty S/P AVR Family History (Updated 08/11/21 @ 19:26 by Monique Madrid PA-C) Father Cancer pancreatic cancer Social History Smoking Status: Never smoker Second Hand Exposure: No; Hx Alcohol Use: No Hx Substance Use: No Preferred Language: Hebrew Communication Ability: Effective Hand Nailer Required: No Beliefs That Will Affect Care: None marital status: Current Living Situation: Family Current Living Situation Comment: Lives at home with son Feels Safe at Home: Yes Assistive Devices: Oxygen - Continuous Allergies Allergies Allergy/AdvReac Type Severity Reaction Status Date / Time No Known Allergies Allergy Mild Verified 07/23/21 18:29 Home Meds Home Medications Medication Instructions Recorded Confirmed atorvastatin 20 mg tablet (Lipitor) 20 mg PO QPM 04/08/20 08/11/21 ferrous sulfate 325 mg (65 mg 325 mg PO DAILY 04/08/20 08/11/21 iron) tablet cinnamon bark 500 mg capsule 500 mg PO DAILY 07/23/21 08/11/21 (Cinnamon) insulin regular human 100 unit/mL 10 unit SUBCUT AC 07/23/21 08/11/21 (3 mL) subcutaneous pen (Novolin R Flexpen) multivitamin 1 tab PO DAILY 07/23/21 08/11/21 omega 2-ynm-dds-fish oil 1,000 mg 1 cap PO BIDM 07/23/21 08/11/21 (120 mg-180 mg) capsule (Fish Oil) potassium chloride 10 mEq 10 meq PO DAILY 07/23/21 08/11/21 tablet,extended release insulin glargine 100 unit/mL (3 50 unit SUBCUT QPM 08/11/21 08/11/21 mL) subcutaneous pen (Lantus Solostar U-100 Insulin) lisinopril 5 mg tablet 5 mg PO DAILY 08/11/21 08/11/21 Previous Rx's Medication Instructions Recorded ammonium lactate 5 % lotion 1 g EXT BID 30 Days #1 btl 08/07/21 (Lac-Hydrin Five) magnesium chloride 64 mg 64 mg PO DAILY 30 Days #30 tab 08/07/21 (magnesium chloride) tablet,delayed release (Mag 64) miconazole nitrate 2 % topical 1 applic EXT BID 30 Days #1 btl 08/07/21 powder (Desenex) pantoprazole 40 mg tablet,delayed 40 mg PO BID 30 Days #60 tab 08/07/21 release warfarin 3 mg tablet 3 mg PO DAILY@1600 30 Days #30 tab 08/07/21 Results & Data (ED) Vital Signs Vital Signs - 24 hr 08/11/21 13:30 Temperature 36.5 C Temperature Source Oral Pulse Rate 98 H Pulse Rhythm Regular Pulse Strength Normal Respiratory Rate 22 Respiratory Effort / Characteristics Non-Labored Spontaneous Respiratory Depth Normal Respiratory Pattern Regular Blood Pressure 151/67 H Blood Pressure Mean 95 Blood Pressure Position Sitting Pulse Oximetry 95 Oxygen Delivery Method Nasal Cannula Oxygen Flow Rate 2 Sepsis Recent Fever Within 48 Hours No Sepsis New/Unexplained Change in Mental Status No Sepsis Action Taken by Nursing No Action Required Home Medications Current Medication List: was personally reviewed by me Laboratory Data Attestation: I reviewed the patient's lab results. Result diagrams: 08/11/21 13:38 08/11/21 13:38 Lab Results 08/11/21 08/11/21 Range/Units 13:38 13:38 WBC 7.16 (4.8-10.8) K/uL RBC 2.83 L (4.2-5.4) M/uL Hgb 7.9 L (12.0-16.0) g/dL Hct 26.7 L (37-47) % MCV 94.3 (80-100) fL MCH 27.9 (25-34) pg MCHC 29.6 L (32-36) g/dL RDW Std Deviation 54.6 H (36.4-46.3) fL RDW Coeff of Jacqueline 15.8 H (11.5-14.5) % Plt Count 351 (130-400) K/uL MPV 9.2 (7.4-10.4) fL Immature Gran % (Auto) 0.3 % Neut % (Auto) 69.5 % Lymph % (Auto) 18.9 % [place] % (Auto) 8.9 % Eos % (Auto) 2.1 % Baso % (Auto) 0.3 % Neut # (Auto) 4.98 (1.4-6.5) K/uL Lymph # (Auto) 1.35 (1.2-3.4) K/uL [place] # (Auto) 0.64 H (0.11-0.59) K/uL Eos # (Auto) 0.15 (0-0.5) K/uL Baso # (Auto) 0.02 (0-0.2) K/uL Immature Gran # (Auto) 0.02 (0.00-0.02) K/uL Sodium 136 (136-145) mmol/L Potassium 4.7 (3.5-5.1) mmol/L Chloride 98 (98-107) mmol/L Carbon Dioxide 29 (21-32) mmol/L Anion Gap 9 (3-11) BUN 31 H (6-23) mg/dl Creatinine 1.24 H (0.6-1.2) mg/dl Est Cr Clr Drug Dosing 55.1 ml/min Est GFR ( Amer) 48.5 ml/min Est GFR (Non-Af Amer) 41.9 ml/min BUN/Creatinine Ratio 25.0 H (10-20) Glucose 133 H (70-99(Fasting)) mg/dl Calcium 9.0 (8.5-10.1) mg/dl Total Bilirubin 0.8 (0.2-1.0) mg/dl AST 27 (13-39) U/L ALT 13 (7-52) U/L Alkaline Phosphatase 65 (34-104) U/L Total Protein 7.8 (6.0-8.3) gm/dl Albumin 3.4 (3.4-5.0) gm/dl Globulin 4.4 H (2.5-4.0) gm/dl Albumin/Globulin Ratio 0.8 L (0.9-2) Administered Medications Discontinued Medications Piperacillin Sod/Tazobactam Sod (Zosyn) 4.5 gm in 120 mls @ 240 mls/hr IV NOW STA Stop: 08/11/21 14:52 Last Infusion: 08/11/21 15:46 Dose: 0 mls/hr Documented by: [id number] Admin: 08/11/21 15:16 Dose: 240 mls/hr Documented by: [id number] Daptomycin 550 mg/ Syringe 11 mls @ 5.5 mls/min IV NOW STA; Protocol Stop: 08/11/21 14:24 Last Admin: 08/11/21 15:16 Dose: 5.5 mls/min Documented by: [id number] Magnesium Sulfate/Dextrose (Magnesium Sulfate / D5w) 1 gm in 100 mls @ 50 mls/hr IV Q2H STA Stop: 08/11/21 18:34 Last Infusion: 08/11/21 19:00 Dose: 0 mls/hr Documented by: [id number] Admin: 08/11/21 17:00 Dose: 50 mls/hr Documented by: [id number] Miscellaneous Information (Consult Pharmacy) 1 ea N/A NOW STA Stop: 08/11/21 15:31 Last Admin: 08/11/21 18:40 Dose: Not Given Documented by: [id number] Imaging Data Radiologist's Impression: Foot CT 08/11/21 14:14 CT foot RT wo con CLINICAL HISTORY: Right foot pain. poss osteo, foul odor, drainage COMPARISON STUDY: Previous CT from 07/25/2021 CT DOSE: TECHNIQUE: Standard CT of the is performed without IV contrast. Multiplanar reconstruction is performed. A dose lowering technique was utilized adhering to the principles of ALARA. FINDINGS: Bones: Compared to the previous examination, the bones are again osteopenic with no evidence for cortical destruction or CT evidence for osteomyelitis. There is no evidence for an acute fracture or dislocation. There is a small calcaneal spur at the origin of the plantar fascia. There is mild Achilles enthesopathy present. There are no lytic or blastic lesions. Joints: There is again moderate to marked joint space narrowing seen involving the intertarsal and tarsometatarsal joints. Mild to moderate joint space narrowing is present of the MTP joints and IP joints. 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 The bones are in anatomic alignment. Soft tissues: There is again marked diffuse cellulitis surrounding the ankle and foot with diffuse subcutaneous edema and skin thickening present. Soft tissue ulceration along the plantar aspect of the heel now measures 15 mm. No underlying abscess is seen. There are no focal fluid collections. IMPRESSION: 1. Marked cellulitis is again seen with diffuse subcutaneous edema and skin thickening. Moderate to marked swelling of the foot is again noted. 2. Skin ulceration at the plantar aspect of the heel now measures 15 mm. No underlying fluid collection or abscess is seen. 3. No CT evidence for osteomyelitis. 4. Marked osteoarthritis. ACT 112: Negative or not required by law. Electronically signed by: Albaro Castillo M.D. 08/11/2021 3:22 PM Discharge Plan Visit Data Chief Complaint: Swelling/Edema to Extremity Stated Complaint: DIFF AMBULATING, OPEN WOUND ON HEAL ED Provider: Glenn Deal Discharge Problem: Weakness, Cellulitis, Failure of outpatient treatment, Pedal edema, Anemia Patient Disposition: Admitted As Inpatient Condition: Fair Discharge Instructions Interventions: ED Discharge Assessment Last Done: 08/11/21 20:32
--- NOTE | 2021-08-11 14:40 | History & Physical Report ---
Date of Service August 11, 2021 Assessment & Plan (1) Foot ulcer, right: Plan: Patient is 75-year-old female with PMH KENAN, paroxysmal atrial fibrillation, DM II, HTN, HLD, diastolic CHF, GERD, pulmonary hypertension, chronic oxygen use 2- 3L, presented to ER with complaint of right heel drainage for couple of days. Pt had noted heel wound during recent hospitalization. Denies fever/chills, N/V In ER pt afebrile, vitals stable. No leukocytosis. Lactate WNL CT right foot: Marked cellulitis is again seen with diffuse subcutaneous edema and skin thickening. Moderate to marked swelling of the foot is again noted. Skin ulceration at the plantar aspect of the heel now measures 15 mm. No underlying fluid collection or abscess is seen. No CT evidence for osteomyelitis. 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 continue INR in a.m. Hypomagnesemia Magnesium: 1.1 Replace and monitor History of GI bleed History of recent GI bleed secondary to gastric ulcer Continue PPI Anemia Anemia secondary to history of recent GI bleed. Hgb: 7.9. Was 8 on 08/07/2021 No reported melena, hematochezia, hematemesis, hematuria, epistaxis Monitor CKD III Cr: 1.2. Was 0.9 on 08/06/2021 Monitor renal functions, avoid nephrotoxic agents when possible DM II A1c: 12.1 on 07/24/21 Continue home Lantus NovoLog sliding scale per protocol Paroxysmal atrial fibrillation Not currently on beta-flores Is on Coumadin as above Chronic diastolic heart failure Appears euvolemic COPD No acute exacerbation noted KENAN Not use CPAP DVT Prophylaxis On Coumadin Full Code as per discussion with pt Follows with Dr Francisco for routine care Pt was seen and care coordinated with Dr Dinh. See addendum History of Present Illness Chief Complaint: Right heel drainage Primary Care Provider: Tasneem Francisco DO Patient is 75-year-old female with PMH KENAN, paroxysmal atrial fibrillation, DM II, HTN, HLD, diastolic CHF, GERD, pulmonary hypertension, chronic oxygen use 2- 3L, presented to ER with complaint of right heel drainage. Outpatient patient notes reviewed. Patient was admitted at [facility] 07/23/2021-08/07/2021 for weakness and fall. Was found to have bilateral lower extremity cellulitis, bilateral lower extremity DVT, PE, CIERA on CKD III. Was started on anticoagulation, had GI bleed secondary to gastric ulcer. Vascular surgery was consulted and IVC filter was not recommended. Patient had negative blood cultures finish 14-day course of antibiotics initially treated with cefepime changed to cefazolin. Was discharged on Coumadin. It was recommended patient go to rehab secondary to ambulatory dysfunction however declined. Patient presents today with complaint of right ear drainage. She reports her son has noticed drainage from right heel. Patient reports she is unable to see her feet so she was unaware. She does report tenderness to right heel which has been ongoing since her prior hospitalization. Reports since being home has not been able to ambulate with her walker. She reports her son works all day and she is unable to get up and move around on her own. Patient denies any known fever, chills. She is unsure if her lower extremities left more edematous or erythematous is from recent hospital discharge. Recently outpatient caser up has reported patient willing to go to rehab and has potential bed hold at [facility] on 08/13/21. Denies fever/chills, diaphoresis, N/V/D/C, FAGAN, dizziness, syncope, vision changes, neck pain, CP, SOB, orthopnea, palpitations, cough, sore throat, choking, otalgia, rhinorrhea, abdominal pain, paresthesias, other rashes, urinary symptoms. Allergies Allergy/AdvReac Type Severity Reaction Status Date / Time No Known Allergies Allergy Mild Verified 07/23/21 18:29 Home Medications Medication Instructions Recorded Confirmed Type atorvastatin 20 mg tablet (Lipitor) 20 mg PO QPM 04/08/20 08/11/21 History ferrous sulfate 325 mg (65 mg 325 mg PO DAILY 04/08/20 08/11/21 History iron) tablet cinnamon bark 500 mg capsule 500 mg PO DAILY 07/23/21 08/11/21 History (Cinnamon) insulin regular human 100 unit/mL 10 unit SUBCUT AC 07/23/21 08/11/21 History (3 mL) subcutaneous pen (Novolin R Flexpen) multivitamin 1 tab PO DAILY 07/23/21 08/11/21 History omega 6-sqc-qhm-fish oil 1,000 mg 1 cap PO BIDM 07/23/21 08/11/21 History (120 mg-180 mg) capsule (Fish Oil) potassium chloride 10 mEq 10 meq PO DAILY 07/23/21 08/11/21 History tablet,extended release ammonium lactate 5 % lotion 1 g EXT BID 30 Days #1 btl 08/07/21 08/11/21 Rx (Lac-Hydrin Five) magnesium chloride 64 mg 64 mg PO DAILY 30 Days #30 tab 08/07/21 08/11/21 Rx (magnesium chloride) tablet,delayed release (Mag 64) miconazole nitrate 2 % topical 1 applic EXT BID 30 Days #1 btl 08/07/21 08/11/21 Rx powder (Desenex) pantoprazole 40 mg tablet,delayed 40 mg PO BID 30 Days #60 tab 08/07/21 08/11/21 Rx release warfarin 3 mg tablet 3 mg PO DAILY@1600 30 Days #30 tab 08/07/21 08/11/21 Rx insulin glargine 100 unit/mL (3 50 unit SUBCUT QPM 08/11/21 08/11/21 History mL) subcutaneous pen (Lantus Solostar U-100 Insulin) lisinopril 5 mg tablet 5 mg PO DAILY 08/11/21 08/11/21 History Past Med/Surg History Medical History Aortic valve stenosis CKD (chronic kidney disease) stage 3, GFR 30-59 ml/min Diabetes Diastolic CHF Dyslipidemia GERD (gastroesophageal reflux disease) HTN (hypertension) Morbid obesity with BMI of 50.0-59.9, adult Obstructive sleep apnea Paroxysmal A-fib Pulmonary HTN Vitamin D deficiency Surgical History History of cardiac cath Hx of total knee arthroplasty S/P AVR Family History Father Cancer pancreatic cancer Social History Smoking Status: Never smoker Second Hand Exposure: No; Hx Alcohol Use: No Hx Substance Use: No Preferred Language: Faroese Communication Ability: Effective Director Of Retail Required: No Beliefs That Will Affect Care: None marital status: Current Living Situation: Family Current Living Situation Comment: lives at home with son Other Information That Helps Us Care for You: No Feels Safe at Home: Yes Safety Concerns: Feels Safe At This Time Assistive Devices: Denture - Upper, Oxygen - Continuous, Special Shoe and Walker Review of Systems Review of Systems: All systems reviewed & are unremarkable except as noted in HPI & below Physical Exam Physical Exam: General: no distress, obese Head: normocephalic, atraumatic Eyes: PERRL, EOM's intact, conjunctiva non-injected, anicteric ENT: normal inspection external ears, nose, mucous membranes moist Neck: supple, trachea midline Lungs: clear, no respiratory distress, no wheezing/rhonchi/rales CV: RRR, no JVD, +pretibial edema Abd: protuberant, normal BS, soft, non-tender Ext: no calf tenderness, bilateral lower extremities large with edema, peeling skin, +slight erythema left lower leg, +erythema and warmth right lower leg. Right calcaneus with unstageable ulcer with eschar with surrounding erythema, no active discharge noted, +tenderness to palpation Neuro: A&O x 3, no focal deficits noted, normal affect Skin: warm, dry Results & Data Results & Data ([facility]) Vital Signs (Past 12 Hours) Vital Signs Temp Pulse Resp BP Pulse Ox 08/11/21 13:30 36.5 C 98 H 22 151/67 H 95 Laboratory Results Short CBC 08/11/21 Range/Units 13:38 WBC 7.16 (4.8-10.8) K/uL Hgb 7.9 L (12.0-16.0) g/dL Hct 26.7 L (37-47) % Plt Count 351 (130-400) K/uL BMP 08/11/21 13:38 Sodium 136 Potassium 4.7 Chloride 98 Carbon Dioxide 29 BUN 31 H Creatinine 1.24 H Glucose 133 H Calcium 9.0 Liver Function 08/11/21 Range/Units 13:38 Total Bilirubin 0.8 (0.2-1.0) mg/dl AST 27 (13-39) U/L ALT 13 (7-52) U/L Alkaline Phosphatase 65 (34-104) U/L Albumin 3.4 (3.4-5.0) gm/dl Diagnostic Findings Foot CT 08/11/21 14:14 CT foot RT wo con CLINICAL HISTORY: Right foot pain. poss osteo, foul odor, drainage COMPARISON STUDY: Previous CT from 07/25/2021 CT DOSE: TECHNIQUE: Standard CT of the is performed without IV contrast. Multiplanar reconstruction is performed. A dose lowering technique was utilized adhering to the principles of ALARA. FINDINGS: Bones: Compared to the previous examination, the bones are again osteopenic with no evidence for cortical destruction or CT evidence for osteomyelitis. There is no evidence for an acute fracture or dislocation. There is a small calcaneal spur at the origin of the plantar fascia. There is mild Achilles enthesopathy present. There are no lytic or blastic lesions. Joints: There is again moderate to marked joint space narrowing seen involving the intertarsal and tarsometatarsal joints. Mild to moderate joint space narrowing is present of the MTP joints and IP joints. 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 The bones are in anatomic alignment. Soft tissues: There is again marked diffuse cellulitis surrounding the ankle and foot with diffuse subcutaneous edema and skin thickening present. Soft tissue ulceration along the plantar aspect of the heel now measures 15 mm. No underlying abscess is seen. There are no focal fluid collections. IMPRESSION: 1. Marked cellulitis is again seen with diffuse subcutaneous edema and skin thickening. Moderate to marked swelling of the foot is again noted. 2. Skin ulceration at the plantar aspect of the heel now measures 15 mm. No underlying fluid collection or abscess is seen. 3. No CT evidence for osteomyelitis. 4. Marked osteoarthritis. ACT 112: Negative or not required by law. Electronically signed by: Albaro Castillo M.D. 08/11/2021 3:22 PM Supervising Physician Co-Signing Physician Notes Pt was seen and examined. Agreed with Monique KHAN exam, assessment and plan. 75-year-old female with PMH KENAN, paroxysmal atrial fibrillation, DM II, HTN, HLD, diastolic CHF, GERD, pulmonary hypertension, chronic oxygen use 2-3L, presented to ER with complaint of right heel drainage. Pt recently discharged from [facility] 07/23/2021-08/07/2021 for cellulitis, weakness and fall. Pt was recommended to go to rehab secondary to ambulatory dysfunction however declined. Patient presents today with complaint of right heel drainage that was by son. She also has tenderness in her right heel that has been going. Denies any known fever, chills. Pt said that she is unable to ambulate at room and agreed to go to rehab this time. CT foot showed Marked cellulitis is again seen with diffuse subcutaneous edema and skin thickening and Skin ulceration at the plantar aspect of the heel now measures 15 mm. No underlying fluid collection or abscess is seen. Received IV Zosyn, daptomycin in the ER, will continue. Will follow blood cx. Will consult wound care. Continue monitor closely. MD Allegra
[2021-08-11 14:55] LABS: Albumin Globulin Ratio 0.8 (0.9-2); Albumin Level 3.4 gm/dl (3.4-5.0); Bilirubin,Total 0.8 mg/dl (0.2-1.0); Creatinine Clr Calc Pharmacy 55.1 ml/min; Est GFR (African American) 48.5 ml/min; Est GFR (Non-African American) 41.9 ml/min; Globulin 4.4 gm/dl (2.5-4.0); Potassium 4.7 mmol/L (3.5-5.1); Total Protein 7.8 gm/dl (6.0-8.3)
--- NOTE | 2021-08-11 15:23 | CT Scan Report ---
CT foot RT wo con CLINICAL HISTORY: Right foot pain. poss osteo, foul odor, drainage COMPARISON STUDY: Previous CT from 07/25/2021 CT DOSE: TECHNIQUE: Standard CT of the is performed without IV contrast. Multiplanar reconstruction is perform ed. A dose lowering technique was utilized adhering to the principles of ALARA. FINDINGS: Bones: Compared to the previous examination, the bones are again osteopenic with no evidence for jean-paul ical destruction or CT evidence for osteomyelitis. There is no evidence for an acute fracture or disl ocation. There is a small calcaneal spur at the origin of the plantar fascia. There is mild Achilles enthesopathy present. There are no lytic or blastic lesions. Joints: There is again moderate to marked joint space narrowing seen involving the intertarsal and ta rsometatarsal joints. Mild to moderate joint space narrowing is present of the MTP joints and IP join ts. There is also moderate narrowing of the tibiotalar joint with osteochondritis dissecans present i nvolving the medial talar dome measuring approximately 5 mm. The bones are in anatomic alignment. Soft tissues: There is again marked diffuse cellulitis surrounding the ankle and foot with diffuse blackwood bcutaneous edema and skin thickening present. Soft tissue ulceration along the plantar aspect of the heel now measures 15 mm. No underlying abscess is seen. There are no focal fluid collections. IMPRESSION: 1. Marked cellulitis is again seen with diffuse subcutaneous edema and skin thickening. Moderate to m arked swelling of the foot is again noted. 2. Skin ulceration at the plantar aspect of the heel now measures 15 mm. No underlying fluid collecti on or abscess is seen. 3. No CT evidence for osteomyelitis. 4. Marked osteoarthritis. ACT 112: Negative or not required by law. Electronically signed by: Albaro Castillo M.D. 08/11/2021 3:22 PM
[2021-08-11] MEDS ORDERED: CONSULT PHARMACY STA (15:30)
[2021-08-11 15:40] LABS: INR 1.2 (0.9-1.1); Partial Thromboplastin Ratio 0.8; Partial Thromboplastin Time 21.3 Seconds (21.0-31.0)
[2021-08-11] MEDS ORDERED: MAGNESIUM SULFATE / D5W 1 GM/100 ML BAG IV STA (16:35)
[2021-08-11] MEDS ORDERED: GLUCOSE 10 TABS/TUBE PO PRN (21:23)
[2021-08-11] MEDS ORDERED: DEXTROSE 50% 50 ML SYRINGE IV PRN (21:23)
[2021-08-11] MEDS ORDERED: GLUCAGON FOR INJ 1 MG VIAL SQ PRN (21:23)
[2021-08-11] MEDS ORDERED: CARBOHYDRATES FOR HYPOGLYCEMIA PO PRN (21:23)
[2021-08-11] MEDS ORDERED: ONDANSETRON INJ 2 MG/ML 2 ML VIAL IV PRN (21:23)
[2021-08-11] MEDS ORDERED: POLYETHYLENE (MIRALAX) 17 GM PACK PO PRN (21:23)
[2021-08-11] MEDS ORDERED: GLUCOSE 40% GEL 15 GM TUBE PO PRN (21:23)
[2021-08-11] MEDS: INSULIN ASPART PER UNIT SC SCH (22:52)
[2021-08-11] MEDS: INSULIN GLARGINE SOLOSTAR 100 UNITS/ML 3 ML PEN SC SCH (22:53)
[2021-08-11] MEDS: AMMONIUM LACTATE 12% LOTION 225 GM BTL EXT SCH (22:56)
[2021-08-11] MEDS: WARFARIN SOD 3 MG TAB PO SCH (23:01)
[2021-08-11] MEDS: MICONAZOLE NITRATE POWDER 43 GM EXT SCH (23:02)
[2021-08-11] MEDS: PANTOprazole 40 MG TAB PO SCH (23:02)
[2021-08-12 00:14] LABS: Appearance Urine Cloudy (Clear); Bacteria Urine Automated Negative (Negative); Bilirubin Urine Negative (Negative); Blood Urine 1+ (Negative); Cast Urine Automated 0 /lpf (0-5); Color Urine Yellow; Epithelial Cell Urine Auto 0-5 /lpf (0-5); Glucose Urine UA Negative (Negative); Ketones Urine Negative (Negative); Leukocyte Esterase Urine 3+ (Negative); Nitrite Urine Negative (Negative); Protein Urine Negative (Negative); RBC Urine Automated 0-4 /hpf (0-4); Specific Gravity Urine 1.007 (1.000-1.030); Urobilinogen Urine Negative (Negative); WBC Urine Automated >30 /hpf (0-5)
[2021-08-12] MEDS ORDERED: CEFEPIME 2,000 MG in SYRINGE 0 ML IV SCH (07:00)
[2021-08-12] MEDS: DOXYCYCLINE HYCLATE 100 MG CAP PO SCH ×2 (07:43→18:00)
[2021-08-12 07:44] LABS: Hematocrit (blood only) 24.9 % (37-47); Hemoglobin 7.6 g/dL (12.0-16.0); Mean Corpuscular Hemoglobin 28.7 pg (25-34); Mean Corpuscular Hgb Conc 30.5 g/dL (32-36); Mean Platelet Volume 9.1 fL (7.4-10.4); Platelet Count 324 K/uL (130-400); RDW Coefficient of Variation 15.8 % (11.5-14.5); RDW Standard Deviation 54.3 fL (36.4-46.3); Red Blood Count 2.65 M/uL (4.2-5.4); White Blood Count 6.11 K/uL (4.8-10.8)
[2021-08-12 07:52] LABS: INR 1.2 (0.9-1.1); Prothrombin Time 12.5 Seconds (9.0-12.0)
[2021-08-12] MEDS: AMMONIUM LACTATE 12% LOTION 225 GM BTL EXT SCH ×2 (08:08→21:38)
[2021-08-12] MEDS: MULTIVITAMIN CHEWABLE TAB PO SCH (08:09)
[2021-08-12] MEDS: lisinopril 5 MG TAB PO SCH (08:09)
[2021-08-12] MEDS: PANTOprazole 40 MG TAB PO SCH ×2 (08:09→21:39)
[2021-08-12] MEDS: POTASSIUM CHLORIDE 10 MEQ TABCR PO SCH (08:09)
[2021-08-12] MEDS: FERROUS SULFATE 325 MG TAB PO SCH (08:09)
[2021-08-12] MEDS: MAGNESIUM CHLORIDE 64MG DELAYED REL TAB PO SCH (08:09)
[2021-08-12] MEDS: MICONAZOLE NITRATE POWDER 43 GM EXT SCH ×2 (08:10→21:39)
[2021-08-12 08:15] LABS: BUN Creatinine Ratio 24.3 (10-20); Calcium 8.9 mg/dl (8.5-10.1); Creatinine Clr Calc Pharmacy 62.7 ml/min; Magnesium 1.4 mg/dl (1.7-2.4); Phosphorus 4.7 mg/dl (2.5-4.9); Potassium 4.7 mmol/L (3.5-5.1)
[2021-08-12] MEDS: INSULIN GLARGINE SOLOSTAR 100 UNITS/ML 3 ML PEN SC SCH ×2 (08:25→21:50)
[2021-08-12] MEDS: INSULIN ASPART PER UNIT SC SCH ×4 (08:25→21:50)
--- NOTE | 2021-08-12 15:38 | Consultation Report ---
HISTORY OF PRESENT ILLNESS: The patient is a 75-year-old white female, we were consulted regarding h er right foot decubitus ulcer. She apparently was in the hospital a couple of weeks ago and since th at time has noted development of a painful ulceration on the posterolateral aspect of the foot. This measures approximately 1 x 1.5 cm of the necrotic tissue in the posterolateral aspect of her heel. She has a past medical history significant for diabetes, hypertension, aortic valve stenosis, paroxys mal AFib, pulmonary hypertension. She has developed a posterolateral foot decubiti. No evidence of drainage is noted. This appears to be necrotic in approximately 1 x 1.5 cm area. We will discuss th is case with Dr. Yung regarding possible debridement of this ulceration. At this point, I would al low her to ambulate as tolerated, continue with dressing changes and we will follow with you. ASSESSMENT: Heel decubiti 1 x 1.5 cm right posterolateral heel. PLAN: Is for continued followup. Job ID: [id number]
--- NOTE | 2021-08-12 15:40 | Consultation Report ---
ADDENDUM The CT and x-rays have been reviewed and no evidence of fluid or abscess collection is noted. There are some soft tissue cellulitic changes with the skin ulceration is noted. No evidence for osteomyel itis or calcaneal osteomyelitis at this time. Job ID: [id number]
[2021-08-12] MEDS: CEFEPIME 2,000 MG in SYRINGE 0 ML IV SCH ×2 (15:53→22:30)
[2021-08-12] MEDS: WARFARIN SOD 3 MG TAB PO SCH (15:53)
--- NOTE | 2021-08-12 17:08 | Hospitalist Progress Note ---
Date of Service August 12, 2021 Assessment & Plan (1) Foot ulcer, right: Plan: New right heel drainage. Wound care nurse concerned for foul odor. Consulted ortho. There is no evidence of drainage or deeper infection such as osteomyelitis or abscess per CT. There is subcutaneous edema in this area and swelling of the foot which explains her soreness. Wound appears to be a pressure ulcer. Wound was painted with betadine and continuing with current antibiotics until all providers can weigh in. (2) Bilateral lower leg cellulitis: Plan: Redness improved per patient, although it is still there and appears severe. Recent hospitalization was treated initially with Rocephin, changed to cefepime then to cefazolin, finished 14-day course for BLE cellulitis. Continues on Dapto and Zosyn as above. 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 She has anemia, and was evaluated last admission by vascular for IVC placement, however, this was not recommended. She had an EGD on 07/27/21 with two superficial ulcers in duodenal bulb found, the larger one empirically clipped. She has no overt bleeding. Cont anticoagulation. As INR is subtherapeutic will initiate heparin drip without bolus now. (4) Pulmonary embolism: Plan: Acute PE in July 2021 along with bilateral DVT. Plan as above. Needs to have therapeutic INR for at least 3-6 months. (5) Weakness: Plan: Pt worked with therapy today and is agreeable to SNF. (6) Morbid obesity: (7) Hypomagnesemia: Plan: Replace with additional IV Mg today and repeat level in am. Cont daily Mg replacement per home regimen. (8) Anemia: Plan: Anemia secondary to history of recent GI bleed. No significant change from recent Hb levels. No reported melena, hematochezia, hematemesis, hematuria, epistaxis Monitor (9) Chronic kidney disease (CKD), stage III (moderate): Plan: chronic, stable. Cont to monitor. (10) DMII (diabetes mellitus, type 2): Plan: chronic, uncontrolled with A1C 12. Cont current insulin regimen in hospital with slight decrease in glargine given hypoglycemia this am. (11) DVT prophylaxis: Plan: heparin/warfarin Full Code Dispo-cont hospitalization DO [facility] Hospital[facility] Admission and Anticipated Discharge Date Admission Date: August 11, 2021 Subjective 75 yo F presented with worsening R heel drainage. Denies pain, Also reports that she was unable to move her leg or walk at home. Walking with walker at baseline two weeks ago before recent hospitalization. She is feeling well States PT worked with her this am and she is ok with rehab now Has her Darco shoe and say it is very comfortable. Denies SOB, CP, abd pain or other issues. Feels her leg redness which is still significant, is better than it was. Denies fevers or chills. Review of Systems Review of Systems: All systems were reviewed and negative except as indicated on HPI above. Physical Exam Physical Exam: CONSTITUTIONAL: obese, vitals as above, generally well- appearing, NAD EYES: normal conjunctivae, no scleral icterus ENT: external ear and nose normal, MMM NECK: trachea midline RESPIRATORY: clear to auscultation bilaterally, no crackles, rales or wheezes, normal respiratory effort CARDIOVASCULAR: regular rate and rhythm, S1 and 2 heard without murmurs, gallops or rubs, no JVD, no peripheral edema CHEST: inspection of chest was normal GASTROINTESTINAL: soft, nontender, ND, no guarding MUSCULOSKELETAL: generalized weakness, unable to sit up in bed without assistance, head is normocephalic and atraumatic, SKIN: warm and dry, no rashes NEUROLOGIC: CN 2-12 grossly intact, normal cognition, normal speech, no tremor. No PSYCHIATRIC: alert cooperative and oriented to person, place and time. Results & Data Results & Data ([facility]) Vital Signs (Past 12 Hours) Vital Signs Temp Pulse Pulse Resp BP Pulse Ox 08/12/21 15:00 76 08/12/21 14:50 84 98/52 L 08/12/21 11:06 36.8 C 86 18 106/55 L 95 08/12/21 08:12 89 08/12/21 08:00 68 08/12/21 07:31 37.1 C 128 H 20 108/52 L 94 Laboratory Results Short CBC 08/12/21 Range/Units 07:00 WBC 6.11 (4.8-10.8) K/uL Hgb 7.6 L (12.0-16.0) g/dL Hct 24.9 L (37-47) % Plt Count 324 (130-400) K/uL BMP 08/12/21 07:00 Sodium 139 Potassium 4.7 Chloride 102 Carbon Dioxide 32 BUN 26 H Creatinine 1.07 Glucose 64 L Calcium 8.9 Urine 08/11/21 Range/Units 23:57 Urine Color Yellow Urine Appearance Cloudy A (Clear) Urine pH 7.0 (4.5-7.5) Ur Specific [place] 1.007 (1.000-1.030) Urine Protein Negative (Negative) Urine Glucose (UA) Negative (Negative) Medications Administered Current Inpatient Medications Acetaminophen (Acetaminophen 325 Mg Tab) 650 mg PO Q4H PRN PRN Reason: Pain or Fever Stop: 09/10/21 21:22 Dextrose (Dextrose 50% 50 Ml Syringe) 25 - 50 ml IV UD PRN; Protocol PRN Reason: Hypoglycemia Protocol Stop: 09/10/21 21:22 Doxycycline Hyclate (Doxycycline Hyclate 100 Mg Cap) 100 mg PO BID@0700,1900 [facility] Stop: 08/19/21 06:59 Last Admin: 08/12/21 07:43 Dose: 100 mg Documented by: Ferrous Sulfate (Ferrous Sulfate 325 Mg Tab) 325 mg PO DAILY [facility] Stop: 09/11/21 08:59 Last Admin: 08/12/21 08:09 Dose: 325 mg Documented by: Glucagon (Glucagon For Inj 1 Mg Vial) 1 mg SQ UD PRN; Protocol PRN Reason: Hypoglycemia Protocol Stop: 09/10/21 21:22 Glucose (Glucose 10 Tabs/Tube) 4 - 8 tabs PO UD PRN; Protocol PRN Reason: Hypoglycemia Protocol Stop: 09/10/21 21:22 Glucose (Glucose 40% Gel 15 Gm Tube) 15 - 30 gm PO UD PRN; Protocol PRN Reason: Hypoglycemia Protocol Stop: 09/10/21 21:22 Cefepime HCl 2,000 mg/ Syringe 20 mls @ 5 mls/min IV Q8H SIMEON; Protocol Stop: 08/19/21 06:59 Last Admin: 08/12/21 15:53 Dose: 5 mls/min Documented by: Insulin Aspart (Insulin Aspart Per Unit) 0 units SC ACHS SIMEON Stop: 09/10/21 21:22 Last Admin: 08/12/21 12:21 Dose: 7 units Documented by: Insulin Glargine (Insulin Glargine Solostar 100 Units/Ml 3 Ml Pen) 25 units SC BID SIMEON Stop: 09/10/21 21:44 Last Admin: 08/12/21 08:25 Dose: 25 units Documented by: Lactic Acid (Ammonium Lactate 12% Lotion 225 Gm Btl) 1 gm EXT BID SIMEON Stop: 09/10/21 21:44 Last Admin: 08/12/21 08:08 Dose: 1 gm Documented by: Lisinopril (Lisinopril 5 Mg Tab) 5 mg PO DAILY SIMEON Stop: 09/11/21 08:59 Last Admin: 08/12/21 08:09 Dose: 5 mg Documented by: Magnesium Chloride (Magnesium Chloride 64mg Delayed Rel Tab) 64 mg PO DAILY SIMEON Stop: 09/11/21 08:59 Last Admin: 08/12/21 08:09 Dose: 64 mg Documented by: Miconazole Nitrate (Miconazole Nitrate Powder 43 Gm) 1 appln EXT BID SIMEON Stop: 09/10/21 21:44 Last Admin: 08/12/21 08:10 Dose: 1 appln Documented by: Miscellaneous (Carbohydrates For Hypoglycemia ) 15 - 30 gm PO UD PRN PRN Reason: Hypoglycemia Protocol Stop: 09/10/21 21:22 Last Admin: 08/12/21 07:45 Dose: 15 gm Documented by: Multivitamins/Folic Acid/Vitamin C (Multivitamin Chewable Tab) 1 tab PO DAILY SIMEON Stop: 09/11/21 08:59 Last Admin: 08/12/21 08:09 Dose: 1 tab Documented by: Ondansetron HCl (Ondansetron Inj 2 Mg/Ml 2 Ml Vial) 4 mg IV Q6H PRN PRN Reason: Nausea Stop: 09/10/21 21:22 Pantoprazole Sodium (Pantoprazole 40 Mg Tab) 40 mg PO BID SIMEON Stop: 09/10/21 21:44 Last Admin: 08/12/21 08:09 Dose: 40 mg Documented by: Polyethylene Glycol (Polyethylene (Miralax) 17 Gm Pack) 17 gm PO DAILY PRN PRN Reason: Constipation Stop: 09/10/21 21:22 Potassium Chloride (Potassium Chloride 10 Meq Tabcr) 10 meq PO DAILY SIMEON Stop: 09/11/21 08:59 Last Admin: 08/12/21 08:09 Dose: 10 meq Documented by: Warfarin Sodium (Warfarin Sod 3 Mg Tab) 3 mg PO DAILY@1600 [facility] Stop: 09/10/21 21:22 Last Admin: 08/12/21 15:53 Dose: 3 mg Documented by:
[2021-08-12] MEDS ORDERED: Heparin IV Adult Wt-Based Standard *NO* Bolus Protocol IV SCH (17:15)
[2021-08-12] MEDS: MAGNESIUM SULFATE / D5W 1 GM/100 ML BAG IV SCH ×2 (17:56→21:35)
[2021-08-12] MEDS ORDERED: HEPARIN SOD (PORCINE) 1000 UNIT/ML IV ONE (18:22)
[2021-08-12 19:04] LABS: INR 1.4 (0.9-1.1); Prothrombin Time 14.2 Seconds (9.0-12.0)
[2021-08-12] MEDS: HEPARIN SODIUM/DEXTROSE 25,000 UNITS/500 ML BAG IV SCH (19:10)
[2021-08-13 01:35] LABS: Hematocrit (blood only) 23.3 % (37-47); Hemoglobin 7.1 g/dL (12.0-16.0); Mean Corpuscular Hemoglobin 28.9 pg (25-34); Mean Corpuscular Hgb Conc 30.5 g/dL (32-36); Mean Corpuscular Volume 94.7 fL (80-100); Mean Platelet Volume 8.9 fL (7.4-10.4); Platelet Count 287 K/uL (130-400); RDW Coefficient of Variation 15.8 % (11.5-14.5); RDW Standard Deviation 54.7 fL (36.4-46.3); Red Blood Count 2.46 M/uL (4.2-5.4); White Blood Count 5.85 K/uL (4.8-10.8)
[2021-08-13 01:53] LABS: Calcium 8.3 mg/dl (8.5-10.1); Creatinine Clr Calc Pharmacy 47.9 ml/min; Est GFR (African American) 41.9 ml/min; Est GFR (Non-African American) 36.2 ml/min; Magnesium 1.8 mg/dl (1.7-2.4); Potassium 4.7 mmol/L (3.5-5.1)
[2021-08-13 01:58] LABS: INR 1.3 (0.9-1.1); Prothrombin Time 13.7 Seconds (9.0-12.0)
[2021-08-13 02:57] LABS: Partial Thromboplastin Ratio 1.9; Partial Thromboplastin Time 52.5 Seconds (21.0-31.0)
[2021-08-13] MEDS: DOXYCYCLINE HYCLATE 100 MG CAP PO SCH ×2 (06:07→18:14)
[2021-08-13] MEDS: CEFEPIME 2,000 MG in SYRINGE 0 ML IV SCH ×3 (06:07→22:49)
[2021-08-13 07:52] LABS: Basophils # (auto) 0.02 K/uL (0-0.2); Basophils % (auto) 0.4 %; Eosinophils # (auto) 0.31 K/uL (0-0.5); Hematocrit (blood only) 23.6 % (37-47); Hemoglobin 7.2 g/dL (12.0-16.0); Lymphocytes # (auto) 1.45 K/uL (1.2-3.4); Lymphocytes % (auto) 28.1 %; Mean Corpuscular Hemoglobin 28.9 pg (25-34); Mean Corpuscular Hgb Conc 30.5 g/dL (32-36); Mean Corpuscular Volume 94.8 fL (80-100); Mean Platelet Volume 8.9 fL (7.4-10.4); Monocytes % (auto) 7.8 %; Neutrophils # (auto) 2.98 K/uL (1.4-6.5); Neutrophils % (auto) 57.7 %; Platelet Count 296 K/uL (130-400); RDW Coefficient of Variation 15.6 % (11.5-14.5); RDW Standard Deviation 54.2 fL (36.4-46.3); Red Blood Count 2.49 M/uL (4.2-5.4); White Blood Count 5.16 K/uL (4.8-10.8)
[2021-08-13] MEDS: PANTOprazole 40 MG TAB PO SCH ×2 (08:01→20:02)
[2021-08-13] MEDS: MULTIVITAMIN CHEWABLE TAB PO SCH (08:01)
[2021-08-13] MEDS: FERROUS SULFATE 325 MG TAB PO SCH (08:01)
[2021-08-13] MEDS: POTASSIUM CHLORIDE 10 MEQ TABCR PO SCH (08:01)
[2021-08-13] MEDS: lisinopril 5 MG TAB PO SCH (08:01)
[2021-08-13] MEDS: MAGNESIUM CHLORIDE 64MG DELAYED REL TAB PO SCH (08:01)
[2021-08-13] MEDS: AMMONIUM LACTATE 12% LOTION 225 GM BTL EXT SCH ×2 (08:02→20:02)
[2021-08-13] MEDS: MICONAZOLE NITRATE POWDER 43 GM EXT SCH ×2 (08:02→20:02)
[2021-08-13] MEDS: INSULIN ASPART PER UNIT SC SCH ×4 (08:10→20:03)
[2021-08-13] MEDS: INSULIN GLARGINE SOLOSTAR 100 UNITS/ML 3 ML PEN SC SCH ×2 (08:11→20:02)
[2021-08-13 08:14] LABS: Partial Thromboplastin Ratio 2.5
[2021-08-13 08:23] LABS: Partial Thromboplastin Time 66.5 Seconds (21.0-31.0)
[2021-08-13 08:32] LABS: Polychromasia 1+; Rouleaux 1+
[2021-08-13] MEDS ORDERED: SODIUM CHLORIDE 0.9% 1000ML 1,000 ML IV SCH (09:30)
[2021-08-13] MEDS: HEPARIN SODIUM/DEXTROSE 25,000 UNITS/500 ML BAG IV SCH (11:18)
--- NOTE | 2021-08-13 13:46 | Hospitalist Progress Note ---
Date of Service August 13, 2021 Assessment & Plan (1) Foot ulcer, right: Plan: New right heel drainage. Foul odor and purulent material seen in wound site. Consulted ortho. At this point there is no evidence of drainage or deeper infection such as osteomyelitis or abscess per CT. There is subcutaneous edema in this area and swelling of the foot which explains her soreness with walking. Wound appears to be a pressure ulcer. Orthopedics considering wound debridement in OR. As she has a recent PE and bilateral DVT diagnosed two weeks ago, she is on full anticoagulation including coumadin with a heparin bridge. INR this am was 1.3. It would be inappropriate to simply hold anticoagulation at this time given her risks. Would require further consultation with hematologic specialist if this were needed for the planned procedure to be a success. Will follow with their plan for this. (2) Bilateral lower leg cellulitis: Plan: Redness improved per patient, although it is still there and appears severe. Recent hospitalization was treated initially with Rocephin, changed to cefepime then to cefazolin, finished 14-day course for BLE cellulitis. Continues on Dapto and Zosyn as above. (3) Current use of alf anticoagulation: Plan: She is on warfarin for h/o PAF and recent acute PE and acute bilateral DVT found during last admission. She has anemia, and was evaluated last admission by vascular for IVC placement, however, this was not recommended. She had an EGD on 07/27/21 with two superficial ulcers in duodenal bulb found, the larger one empirically clipped. She has no overt bleeding. Cont anticoagulation. As INR is subtherapeutic continue heparin drip. This shouldn't be stopped without further guidance from a nursing specialist or other qualified specialist. (4) Pulmonary embolism: Plan: Acute PE in July 2021 along with bilateral DVT. Plan as above. Needs to have therapeutic INR for at least 3-6 months. (5) Weakness: Plan: Pt is agreeable to SNF. (6) Morbid obesity: (7) Anemia: Plan: Anemia secondary to history of recent GI bleed. No significant change from recent Hb levels. No reported melena, hematochezia, hematemesis, hematuria, epistaxis Monitor (8) Chronic kidney disease (CKD), stage III (moderate): Plan: chronic, stable. Cont to monitor. (9) DMII (diabetes mellitus, type 2): Plan: chronic, uncontrolled with A1C 12. Cont current insulin regimen in hospital with glucose levels looking controlled. (10) DVT prophylaxis: Plan: heparin/warfarin Full Code Dispo-cont hospitalization DO Bud Kimball Hospitalist Admission and Anticipated Discharge Date Admission Date: August 11, 2021 Subjective 75 yo F presented with worsening R heel drainage. Denies pain, Also reports that she was unable to move her leg or walk at home. Walking with walker at baseline two weeks ago before recent hospitalization. She is feeling fine today Has her [employer]co shoe and say it is very comfortable. Denies SOB, CP, abd pain or other issues. Leg redness has improved. Denies fevers or chills. Ortho wtih plans for OR in am. Review of Systems Review of Systems: All systems were reviewed and negative except as indicated on HPI above. Physical Exam Physical Exam: CONSTITUTIONAL: obese, vitals as above, generally well- appearing, NAD EYES: normal conjunctivae, no scleral icterus ENT: external ear and nose normal, MMM NECK: trachea midline RESPIRATORY: clear to auscultation bilaterally, no crackles, rales or wheezes, normal respiratory effort CARDIOVASCULAR: regular rate and rhythm, S1 and 2 heard without murmurs, gallops or rubs, no JVD, no peripheral edema CHEST: inspection of chest was normal GASTROINTESTINAL: soft, nontender, ND, no guarding MUSCULOSKELETAL: generalized weakness, unable to sit up in bed without assistance, head is normocephalic and atraumatic SKIN: warm and dry, no rashes NEUROLOGIC: CN 2-12 grossly intact, normal cognition, normal speech, no tremor. No PSYCHIATRIC: alert cooperative and oriented to person, place and time. Results & Data Results & Data ([facility]) Vital Signs (Past 12 Hours) Vital Signs Temp Pulse Pulse Resp BP Pulse Ox 08/13/21 11:25 36.6 C 65 20 114/64 98 08/13/21 07:56 37.0 C 64 18 121/75 98 08/13/21 07:32 77 08/13/21 02:07 36.7 C 67 18 117/65 95 Laboratory Results Short CBC 08/13/21 08/13/21 Range/Units 01:12 07:23 WBC 5.85 5.16 (4.8-10.8) K/uL Hgb 7.1 L 7.2 L (12.0-16.0) g/dL Hct 23.3 L 23.6 L (37-47) % Plt Count 287 296 (130-400) K/uL [facility] 08/13/21 01:12 Sodium 137 Potassium 4.7 Chloride 102 Carbon Dioxide 30 BUN 28 H Creatinine 1.40 H D Glucose 129 H Calcium 8.3 L Medications Administered Current Inpatient Medications Acetaminophen (Acetaminophen 325 Mg Tab) 650 mg PO Q4H PRN PRN Reason: Pain or Fever Stop: 09/10/21 21:22 Dextrose (Dextrose 50% 50 Ml Syringe) 25 - 50 ml IV UD PRN; Protocol PRN Reason: Hypoglycemia Protocol Stop: 09/10/21 21:22 Doxycycline Hyclate (Doxycycline Hyclate 100 Mg Cap) 100 mg PO BID@0700,1900 [facility] Stop: 08/19/21 06:59 Last Admin: 08/13/21 06:07 Dose: 100 mg Documented by: Ferrous Sulfate (Ferrous Sulfate 325 Mg Tab) 325 mg PO DAILY [facility] Stop: 09/11/21 08:59 Last Admin: 08/13/21 08:01 Dose: 325 mg Documented by: Glucagon (Glucagon For Inj 1 Mg Vial) 1 mg SQ UD PRN; Protocol PRN Reason: Hypoglycemia Protocol Stop: 09/10/21 21:22 Glucose (Glucose 10 Tabs/Tube) 4 - 8 tabs PO UD PRN; Protocol PRN Reason: Hypoglycemia Protocol Stop: 09/10/21 21:22 Glucose (Glucose 40% Gel 15 Gm Tube) 15 - 30 gm PO UD PRN; Protocol PRN Reason: Hypoglycemia Protocol Stop: 09/10/21 21:22 Cefepime HCl 2,000 mg/ Syringe 20 mls @ 5 mls/min IV Q8H [facility]; Protocol Stop: 08/19/21 06:59 Last Admin: 08/13/21 06:07 Dose: 5 mls/min Documented by: Heparin Sodium/Dextrose (Heparin Sodium/Dextrose) 25,000 units in 500 mls @ 30 mls/hr IV .[id number] [facility]; Protocol Stop: 09/11/21 17:29 Last Admin: 08/13/21 11:18 Dose: 1,500 units/hr, 30 mls/hr Documented by: Sodium Chloride (Nss 1000ml) 1,000 mls @ 100 mls/hr IV .Q10H [facility] Stop: 08/13/21 19:29 Last Admin: 08/13/21 09:43 Dose: 100 mls/hr Documented by: Insulin Aspart (Insulin Aspart Per Unit) 0 units SC ACHS [facility] Stop: 09/10/21 21:22 Last Admin: 08/13/21 12:08 Dose: 11 units Documented by: Insulin Glargine (Insulin Glargine Solostar 100 Units/Ml 3 Ml Pen) 20 units SC BID [facility] Stop: 09/11/21 20:59 Last Admin: 08/13/21 08:11 Dose: 20 units Documented by: Lactic Acid (Ammonium Lactate 12% Lotion 225 Gm Btl) 1 gm EXT BID [facility] Stop: 09/10/21 21:44 Last Admin: 08/13/21 08:02 Dose: 1 gm Documented by: Lisinopril (Lisinopril 5 Mg Tab) 5 mg PO DAILY [facility] Stop: 09/11/21 08:59 Last Admin: 08/13/21 08:01 Dose: 5 mg Documented by: Magnesium Chloride (Magnesium Chloride 64mg Delayed Rel Tab) 64 mg PO DAILY [facility] Stop: 09/11/21 08:59 Last Admin: 08/13/21 08:01 Dose: 64 mg Documented by: Miconazole Nitrate (Miconazole Nitrate Powder 43 Gm) 1 appln EXT BID [facility] Stop: 09/10/21 21:44 Last Admin: 08/13/21 08:02 Dose: 1 appln Documented by: Miscellaneous (Carbohydrates For Hypoglycemia ) 15 - 30 gm PO UD PRN PRN Reason: Hypoglycemia Protocol Stop: 09/10/21 21:22 Last Admin: 08/12/21 07:45 Dose: 15 gm Documented by: Multivitamins/Folic Acid/Vitamin C (Multivitamin Chewable Tab) 1 tab PO DAILY [facility] Stop: 09/11/21 08:59 Last Admin: 08/13/21 08:01 Dose: 1 tab Documented by: Ondansetron HCl (Ondansetron Inj 2 Mg/Ml 2 Ml Vial) 4 mg IV Q6H PRN PRN Reason: Nausea Stop: 09/10/21 21:22 Pantoprazole Sodium (Pantoprazole 40 Mg Tab) 40 mg PO BID [facility] Stop: 09/10/21 21:44 Last Admin: 08/13/21 08:01 Dose: 40 mg Documented by: Polyethylene Glycol (Polyethylene (Miralax) 17 Gm Pack) 17 gm PO DAILY PRN PRN Reason: Constipation Stop: 09/10/21 21:22 Potassium Chloride (Potassium Chloride 10 Meq Tabcr) 10 meq PO DAILY [facility] Stop: 09/11/21 08:59 Last Admin: 08/13/21 08:01 Dose: 10 meq Documented by: Warfarin Sodium (Warfarin Sod 3 Mg Tab) 3 mg PO DAILY@1600 [facility] Stop: 09/10/21 21:22 Last Admin: 08/12/21 15:53 Dose: 3 mg Documented by:
[2021-08-13 15:54] LABS: Partial Thromboplastin Ratio 2.4
[2021-08-13] MEDS: WARFARIN SOD 3 MG TAB PO SCH (17:04)
--- NOTE | 2021-08-13 17:25 | Communication Note ---
Date of Service: August 13, 2021 Right heel wound examined today. Optifoam removed revealing a small black ulcerative area on the heel. She has some mild purulence noted over the top of the blackened tissue. A foul odor is present upon removing the dressing. Pt state her leg is feeling better today. No other complaints. Consider I&D of the ulcer tomorrow. Dr. Yung to make final decision in AM. Will make NPO after midnight in case surgical debridement planned.
[2021-08-13 17:29] LABS: Partial Thromboplastin Time 67.2 Seconds (21.0-31.0)
[2021-08-13] MEDS ORDERED: Nursing to Pharmacy Communication SCH (20:15)
[2021-08-13] MEDS: ACETAMINOPHEN 325 MG TAB PO PRN (21:35)
[2021-08-14 00:23] LABS: Partial Thromboplastin Ratio 2.3
[2021-08-14 00:27] LABS: Partial Thromboplastin Time 63.2 Seconds (21.0-31.0)
[2021-08-14] MEDS: HEPARIN SODIUM/DEXTROSE 25,000 UNITS/500 ML BAG IV SCH ×2 (03:48→20:47)
[2021-08-14] MEDS ORDERED: Nursing to Pharmacy Communication SCH (04:00)
[2021-08-14] MEDS: CEFEPIME 2,000 MG in SYRINGE 0 ML IV SCH ×2 (06:34→18:45)
[2021-08-14] MEDS: DOXYCYCLINE HYCLATE 100 MG CAP PO SCH ×2 (06:34→20:49)
[2021-08-14] MEDS: FERROUS SULFATE 325 MG TAB PO SCH (07:32)
[2021-08-14] MEDS: PANTOprazole 40 MG TAB PO SCH ×2 (07:32→20:50)
[2021-08-14] MEDS: MAGNESIUM CHLORIDE 64MG DELAYED REL TAB PO SCH (07:32)
[2021-08-14] MEDS: POTASSIUM CHLORIDE 10 MEQ TABCR PO SCH (07:32)
[2021-08-14] MEDS: MULTIVITAMIN CHEWABLE TAB PO SCH (07:32)
[2021-08-14] MEDS: AMMONIUM LACTATE 12% LOTION 225 GM BTL EXT SCH ×2 (07:33→20:49)
[2021-08-14] MEDS: INSULIN ASPART PER UNIT SC SCH ×4 (07:33→22:22)
[2021-08-14] MEDS: MICONAZOLE NITRATE POWDER 43 GM EXT SCH ×2 (07:34→20:50)
[2021-08-14] MEDS: INSULIN GLARGINE SOLOSTAR 100 UNITS/ML 3 ML PEN SC SCH ×2 (07:34→22:21)
[2021-08-14 08:09] LABS: Hematocrit (blood only) 24.1 % (37-47); Hemoglobin 7.1 g/dL (12.0-16.0); Mean Corpuscular Hemoglobin 28.3 pg (25-34); Mean Corpuscular Hgb Conc 29.5 g/dL (32-36); Platelet Count 299 K/uL (130-400); RDW Coefficient of Variation 15.4 % (11.5-14.5); RDW Standard Deviation 53.6 fL (36.4-46.3); Red Blood Count 2.51 M/uL (4.2-5.4); White Blood Count 5.55 K/uL (4.8-10.8)
[2021-08-14 08:36] LABS: INR 1.4 (0.9-1.1); Partial Thromboplastin Ratio 2.3; Prothrombin Time 14.4 Seconds (9.0-12.0)
[2021-08-14 08:50] LABS: BUN Creatinine Ratio 22.1 (10-20); Calcium 8.6 mg/dl (8.5-10.1); Creatinine Clr Calc Pharmacy 54.5 ml/min; Est GFR (African American) 49.5 ml/min; Est GFR (Non-African American) 42.7 ml/min; Potassium 4.7 mmol/L (3.5-5.1)
--- NOTE | 2021-08-14 08:51 | Communication Note ---
Date of Service: August 14, 2021 I discussed the case with hematology calendar control clerk blood bank. Given the high risk for this diabetic foot wound to progress to something that could include limb loss withou t appropriate source control including debridement, this need for proposed procedure becomes more urgent. In this case, the benefits outweigh the risks of holding the heparin temporarily, which will be done now in preparation for the OR today. Will defer to orthopedic surgeon to restart the heparin once comfortable. Prefer no more than 12-24 hours off heparin if possible. Tee, DO
[2021-08-14 08:53] LABS: Partial Thromboplastin Time 63.8 Seconds (21.0-31.0)
--- NOTE | 2021-08-14 11:00 | Orthopedic Progress Note ---
Date of Service August 14, 2021 Assessment & Plan (1) Foot ulcer, right: Plan: Right Heel Ulcer Case discussed with Dr Oliveira this AM. After speaking to Heme/Onc team, it was felt patient should go ahead with surgery secondary to the possibility of worsening infection and possible limb involvement. Dr. Oliveira's note as below. Plan for I&D of right heel ulcer today by Dr. Yung. Date of Service: August 14, 2021 (I discussed the case with hematology production manager. Given the high risk for this diabetic foot wound to progress to something that could include limb loss without appropriate source control including debridement, this need for proposed procedure becomes more urgent. In this case, the benefits outweigh the risks of holding the heparin temporarily, which will be done now in preparation for the OR today. Will defer to orthopedic surgeon to restart the heparin once comfortable. Prefer no more than 12-24 hours off heparin if possible. Tee, DO) Admission and Anticipated Discharge Date Admission Date: August 11, 2021 Subjective Stopped by to recheck patient's right heel wound. She states that the foot feels better overall than when she first came in. No new compaints. Physical Exam Physical Exam: Dressing removed. Less darkened eschar but continues with foul odor and strands of slough easily pulled off. Dressing put back on. Results & Data ([facility]) Vital Signs (Past 12 Hours) Vital Signs Temp Pulse Pulse Resp BP BP Pulse Ox 08/14/21 10:50 36.8 C 73 18 123/70 96 08/14/21 07:35 36.7 C 57 L 18 151/52 H 93 08/14/21 07:20 66 08/14/21 03:20 37 C 83 20 146/73 H 98
[2021-08-14] MEDS ORDERED: ROCURONIUM BROMIDE 10 MG/ML 5 ML VIAL IV ONE (12:46)
[2021-08-14] MEDS ORDERED: ONDANSETRON INJ 2 MG/ML 2 ML VIAL ONE (12:46)
[2021-08-14] MEDS ORDERED: fentaNYL citrate 100 MCG/2 ML VIAL ONE ×2 (12:46→19:22)
[2021-08-14] MEDS ORDERED: LIDOCAINE 2% 2 ML VIAL/AMP(20MG/ML) INFIL ONE ×2 (12:46→17:30)
[2021-08-14] MEDS ORDERED: PROPOFOL IV EMULSION 10 MG/ML 20 ML VIAL IV ONE ×2 (12:46→17:30)
[2021-08-14] MEDS: WARFARIN SOD 3 MG TAB PO SCH (15:54)
--- NOTE | 2021-08-14 16:01 | History & Physical Bridge Note ---
Date of Service August 14, 2021 History & Physical Bridge Note I have examined the patient, reviewed the History & Physical and in the interval since the performance of the History & Physical I have noted the following changes of clinical significance: no changes noted
--- NOTE | 2021-08-14 16:01 | Hospitalist Progress Note ---
Date of Service August 14, 2021 Assessment & Plan (1) Foot ulcer, right: Plan: New right heel drainage. Foul odor and purulent material seen in wound site. Consulted ortho. At this point there is no evidence of drainage or deeper infection such as osteomyelitis or abscess per CT. There is subcutaneous edema in this area and swelling of the foot which explains her soreness with walking. Wound appears to be a pressure ulcer. Orthopedics taking her for wound de bridement in OR. As she has a recent PE and bilateral DVT diagnosed two weeks ago, she is on full anticoagulation including coumadin with a heparin bridge. Heparin held for surgery but should be restarted as soon as possible after (2) Bilateral lower leg cellulitis: Plan: Redness improved per patient, although it is still there and appears severe. Recent hospitalization was treated initially with Rocephin, changed to cefepime then to cefazolin, finished 14-day course for BLE cellulitis. Continues on Dapto and Zosyn as above. Signifiant improvement in erythema. (3) Current use of [facility] anticoagulation: Plan: She is on warfarin for h/o PAF and recent acute PE and acute bilateral DVT found during last admission. She has anemia, and was evaluated last admission by vascular for IVC placement, however, this was not recommended. She had an EGD on 07/27/21 with two superficial ulcers in duodenal bulb found, the larger one empirically clipped. She has no overt bleeding. Cont anticoagulation. As INR is subtherapeutic continue heparin drip. (4) Pulmonary embolism: Plan: Acute PE in July 2021 along with bilateral DVT. Plan as above. Needs to have therapeutic INR for at least 3-6 months. (5) Weakness: Plan: Pt is agreeable to SNF. (6) Morbid obesity: (7) Anemia: Plan: Anemia secondary to history of recent GI bleed. No significant change from recent Hb levels. No reported melena, hematochezia, hematemesis, hematuria, epistaxis Monitor (8) Chronic kidney disease (CKD), stage III (moderate): Plan: chronic, stable. Cont to monitor. (9) DMII (diabetes mellitus, type 2): Plan: chronic, uncontrolled with A1C 12. Cont current insulin regimen in hospital with glucose levels looking controlled. (10) DVT prophylaxis: Plan: heparin/warfarin Full Code [facility] Admission and Anticipated Discharge Date Admission Date: August 11, 2021 Subjective 75 yo F presented with worsening R heel drainage. Denies pain, Also reports that she was unable to move her leg or walk at home. Walking with walker at [facility] two weeks ago before recent hospitalization. She is feeling fine today Denies SOB, CP, abd pain or other issues. Leg redness has improved again today Denies fevers or chills. Ortho wtih plans for OR today for heel debridement Heparin being held. Review of Systems Review of Systems: All systems were reviewed and negative except as indicated on HPI above. Physical Exam Physical Exam: CONSTITUTIONAL: obese, vitals as above, generally well- appearing, NAD EYES: normal conjunctivae, no scleral icterus ENT: external ear and nose normal, MMM NECK: trachea midline RESPIRATORY: clear to auscultation bilaterally, no crackles, rales or wheezes, normal respiratory effort CARDIOVASCULAR: regular rate and rhythm, S1 and 2 heard without murmurs, gallops or rubs, no JVD, no peripheral edema CHEST: inspection of chest was normal GASTROINTESTINAL: soft, nontender, ND, no guarding MUSCULOSKELETAL: generalized weakness, unable to sit up in bed without assistance, head is normocephalic and atraumatic SKIN: warm and dry, no rashes NEUROLOGIC: CN 2-12 grossly intact, normal cognition, normal speech, no tremor. No PSYCHIATRIC: alert cooperative and oriented to person, place and time. Results & Data Results & Data ([facility]) Vital Signs (Past 12 Hours) Vital Signs Temp Pulse Pulse Resp BP Pulse Ox 08/14/21 14:51 69 08/14/21 14:45 36.9 C 69 18 112/57 L 97 08/14/21 10:50 36.8 C 73 18 123/70 96 08/14/21 07:35 36.7 C 57 L 18 151/52 H 93 08/14/21 07:20 66 Laboratory Results Short CBC 08/14/21 Range/Units 07:23 WBC 5.55 (4.8-10.8) K/uL Hgb 7.1 L (12.0-16.0) g/dL Hct 24.1 L (37-47) % Plt Count 299 (130-400) K/uL BMP 08/14/21 07:23 Sodium 139 Potassium 4.7 Chloride 103 Carbon Dioxide 32 BUN 27 H Creatinine 1.22 H Glucose 111 H Calcium 8.6 Medications Administered Current Inpatient Medications Acetaminophen (Acetaminophen 325 Mg Tab) 650 mg PO Q4H PRN PRN Reason: Pain or Fever Stop: 09/10/21 21:22 Last Admin: 08/13/21 21:35 Dose: 650 mg Documented by: Dextrose (Dextrose 50% 50 Ml Syringe) 25 - 50 ml IV UD PRN; Protocol PRN Reason: Hypoglycemia Protocol Stop: 09/10/21 21:22 Doxycycline Hyclate (Doxycycline Hyclate 100 Mg Cap) 100 mg PO BID@0700,1900 [facility] Stop: 08/19/21 06:59 Last Admin: 08/14/21 06:34 Dose: 100 mg Documented by: Ferrous Sulfate (Ferrous Sulfate 325 Mg Tab) 325 mg PO DAILY [facility] Stop: 09/11/21 08:59 Last Admin: 08/14/21 07:32 Dose: 325 mg Documented by: Glucagon (Glucagon For Inj 1 Mg Vial) 1 mg SQ UD PRN; Protocol PRN Reason: Hypoglycemia Protocol Stop: 09/10/21 21:22 Glucose (Glucose 10 Tabs/Tube) 4 - 8 tabs PO UD PRN; Protocol PRN Reason: Hypoglycemia Protocol Stop: 09/10/21 21:22 Glucose (Glucose 40% Gel 15 Gm Tube) 15 - 30 gm PO UD PRN; Protocol PRN Reason: Hypoglycemia Protocol Stop: 09/10/21 21:22 Heparin Sodium/Dextrose (Heparin Sodium/Dextrose) 25,000 units in 500 mls @ 0 mls/hr IV .Q0M [facility]; Protocol Stop: 09/11/21 17:29 Last Titration: 08/14/21 08:56 Dose: 0 units/hr, 0 mls/hr Documented by: Cefepime HCl 2,000 mg/ Syringe 20 mls @ 5 mls/min IV Q12H [facility]; Protocol Stop: 08/19/21 05:59 Insulin Aspart (Insulin Aspart Per Unit) 0 units SC ACHS [facility] Stop: 09/10/21 21:22 Last Admin: 08/14/21 11:49 Dose: Not Given Documented by: Insulin Glargine (Insulin Glargine Solostar 100 Units/Ml 3 Ml Pen) 20 units SC BID [facility] Stop: 09/11/21 20:59 Last Admin: 08/14/21 07:34 Dose: Not Given Documented by: Lactic Acid (Ammonium Lactate 12% Lotion 225 Gm Btl) 1 gm EXT BID [facility] Stop: 09/10/21 21:44 Last Admin: 08/14/21 07:33 Dose: 1 gm Documented by: Lisinopril (Lisinopril 5 Mg Tab) 5 mg PO DAILY [facility] Stop: 09/11/21 08:59 Last Admin: 08/13/21 08:01 Dose: 5 mg Documented by: Magnesium Chloride (Magnesium Chloride 64mg Delayed Rel Tab) 64 mg PO DAILY [facility] Stop: 09/11/21 08:59 Last Admin: 08/14/21 07:32 Dose: 64 mg Documented by: Miconazole Nitrate (Miconazole Nitrate Powder 43 Gm) 1 appln EXT BID [facility] Stop: 09/10/21 21:44 Last Admin: 08/14/21 07:34 Dose: 1 appln Documented by: Miscellaneous (Carbohydrates For Hypoglycemia ) 15 - 30 gm PO UD PRN PRN Reason: Hypoglycemia Protocol Stop: 09/10/21 21:22 Last Admin: 08/12/21 07:45 Dose: 15 gm Documented by: Multivitamins/Folic Acid/Vitamin C (Multivitamin Chewable Tab) 1 tab PO DAILY [facility] Stop: 09/11/21 08:59 Last Admin: 08/14/21 07:32 Dose: 1 tab Documented by: Ondansetron HCl (Ondansetron Inj 2 Mg/Ml 2 Ml Vial) 4 mg IV Q6H PRN PRN Reason: Nausea Stop: 09/10/21 21:22 Pantoprazole Sodium (Pantoprazole 40 Mg Tab) 40 mg PO BID [facility] Stop: 09/10/21 21:44 Last Admin: 08/14/21 07:32 Dose: 40 mg Documented by: Polyethylene Glycol (Polyethylene (Miralax) 17 Gm Pack) 17 gm PO DAILY PRN PRN Reason: Constipation Stop: 09/10/21 21:22 Potassium Chloride (Potassium Chloride 10 Meq Tabcr) 10 meq PO DAILY [facility] Stop: 09/11/21 08:59 Last Admin: 08/14/21 07:32 Dose: 10 meq Documented by: Warfarin Sodium (Warfarin Sod 3 Mg Tab) 3 mg PO DAILY@1600 [facility] Stop: 09/10/21 21:22 Last Admin: 08/14/21 15:54 Dose: Not Given Documented by:
--- NOTE | 2021-08-14 16:05 | History & Physical Bridge Note ---
Date of Service August 14, 2021 History & Physical Bridge Note I have examined the patient, reviewed the History & Physical and in the interval since the performance of the History & Physical I have noted the following changes of clinical significance: We will require incision and drainage right heel ulcer with possible deep debridement as necessary.
[2021-08-14] MEDS ORDERED: GENTAMICIN SULFATE 40 MG/ML 2 ML VIAL ONE (16:06)
[2021-08-14] MEDS ORDERED: ceFAZolin 330 MG/ML 1 GM VIAL ONE (16:06)
[2021-08-14] MEDS ORDERED: VANCOMYCIN HCL 1000MG/20ML VIAL ONE (16:06)
[2021-08-14] MEDS ORDERED: BUPIVACAINE 0.5 % 5 MG/1 ML MPF 30ML VIAL ONE (18:06)
[2021-08-14] MEDS ORDERED: LIDOCAINE 1% LOCAL 20 ML VIAL ONE (18:06)
[2021-08-14] MEDS ORDERED: ePHEDrine sulfate 50 MG/ML AMP IV PRN (18:19)
[2021-08-14] MEDS ORDERED: PROMETHAZINE HCL 12.5 MG in SODIUM CHLORIDE 0.9% 50 ML IV PRN (18:19)
[2021-08-14] MEDS ORDERED: NALOXONE HCL 0.4 MG/1 ML VIAL/CARP IV PRN (18:19)
[2021-08-14] MEDS ORDERED: ONDANSETRON INJ 2 MG/ML 2 ML VIAL IV PRN (18:19)
[2021-08-14] MEDS ORDERED: ATROPINE SULFATE 0.1 MG/ML 10ML SYR IV PRN (18:19)
[2021-08-14] MEDS ORDERED: LABETALOL HCL IV 5 MG/ML 20ML IV PRN (18:19)
[2021-08-14] MEDS ORDERED: FLUMAZENIL 0.1 MG/1 ML 10 ML VIAL IV PRN (18:19)
--- NOTE | 2021-08-14 18:19 | Anesthesiology Consultation ---
Date of Service August 14, 2021 Assessment & Plan Chart Review Chart Review: Acceptable Risk for Surgery and Patient NOT seen in Pre Admission Testing Consults Requested none ASA ASA4 Proposed Anesthesia Anesthesia Type: MAC Risk / Benefits Reviewed With: PT / POA / Parent / Guardian, Accepts Plan and Informed Consent Obtained Additional Comments: covid test negative History Surgery Operation Date: 08/14/21 08:20 Proposed Procedures p Right Heel Wound Incision and Debridement - Eric Yung, Height/Weight Height: 5 ft 7 in Weight: 131.2 kg Allergies Allergy/AdvReac Type Severity Reaction Status Date / Time No Known Allergies Allergy Mild Verified 07/23/21 18:29 Medications Home Medications Medication Instructions Recorded Confirmed Last Taken atorvastatin 20 mg tablet (Lipitor) 20 mg PO QPM 04/08/20 08/11/21 08/10/21 ferrous sulfate 325 mg (65 mg 325 mg PO DAILY 04/08/20 08/11/21 08/11/21 iron) tablet cinnamon bark 500 mg capsule 500 mg PO DAILY 07/23/21 08/11/21 08/11/21 (Cinnamon) insulin regular human 100 unit/mL 10 unit SUBCUT AC 07/23/21 08/11/21 08/10/21 (3 mL) subcutaneous pen (Novolin R Flexpen) multivitamin 1 tab PO DAILY 07/23/21 08/11/21 08/11/21 omega 6-qrh-nyb-fish oil 1,000 mg 1 cap PO BIDM 07/23/21 08/11/21 08/11/21 (120 mg-180 mg) capsule (Fish Oil) potassium chloride 10 mEq 10 meq PO DAILY 07/23/21 08/11/21 08/10/21 tablet,extended release ammonium lactate 5 % lotion 1 g EXT BID 30 Days #1 btl 08/07/21 08/11/21 Unknown (Lac-Hydrin Five) magnesium chloride 64 mg 64 mg PO DAILY 30 Days #30 tab 08/07/21 08/11/21 Unknown (magnesium chloride) tablet,delayed release (Mag 64) miconazole nitrate 2 % topical 1 applic EXT BID 30 Days #1 btl 08/07/21 08/11/21 08/11/21 powder (Desenex) pantoprazole 40 mg tablet,delayed 40 mg PO BID 30 Days #60 tab 08/07/21 08/11/21 Unknown release warfarin 3 mg tablet 3 mg PO DAILY@1600 30 Days #30 tab 08/07/21 08/11/21 08/11/21 insulin glargine 100 unit/mL (3 50 unit SUBCUT QPM 08/11/21 08/11/21 08/10/21 mL) subcutaneous pen (Lantus Solostar U-100 Insulin) lisinopril 5 mg tablet 5 mg PO DAILY 08/11/21 08/11/21 08/11/21 Active Medications Generic Name Dose Route Start Last Admin Trade Name Javierq PRN Reason Stop Dose Admin Acetaminophen 650 mg 08/11/21 21:23 08/13/21 21:35 Acetaminophen 325 Mg Tab PO 09/10/21 21:22 650 mg Q4H PRN Administration Pain or Fever Doxycycline Hyclate 100 mg 08/12/21 07:00 08/14/21 06:34 Doxycycline Hyclate 100 Mg Cap PO 08/19/21 06:59 100 mg BID@0700,1900 SIMEON Administration Ferrous Sulfate 325 mg 08/12/21 09:00 08/14/21 07:32 Ferrous Sulfate 325 Mg Tab PO 09/11/21 08:59 325 mg DAILY SIMEON Administration Heparin Sodium/Dextrose 25,000 units in 500 mls @ 0 mls/hr 08/12/21 17:30 08/14/21 08:56 Heparin Sodium/Dextrose IV 09/11/21 17:29 0 units/hr .Q0M SIMEON 0 mls/hr Titration Protocol 0 UNITS/HR Insulin Aspart 0 units 08/11/21 21:23 08/14/21 11:49 Insulin Aspart Per Unit SC 09/10/21 21:22 Not Given ACHS SIMEON Insulin Glargine 20 units 08/12/21 21:00 08/14/21 07:34 Insulin Glargine Solostar 100 Units/Ml 3 Ml Pen SC 09/11/21 20:59 Not Given BID SIMEON Lactic Acid 1 gm 08/11/21 21:45 08/14/21 07:33 Ammonium Lactate 12% Lotion 225 Gm Btl EXT 09/10/21 21:44 1 gm BID SIMEON Administration Lisinopril 5 mg 08/12/21 09:00 08/13/21 08:01 Lisinopril 5 Mg Tab PO 09/11/21 08:59 5 mg DAILY SIMEON Administration Magnesium Chloride 64 mg 08/12/21 09:00 08/14/21 07:32 Magnesium Chloride 64mg Delayed Rel Tab PO 09/11/21 08:59 64 mg DAILY SIMEON Administration Miconazole Nitrate 1 appln 08/11/21 21:45 08/14/21 07:34 Miconazole Nitrate Powder 43 Gm EXT 09/10/21 21:44 1 appln BID SIMEON Administration Miscellaneous 15 - 30 gm 08/11/21 21:23 08/12/21 07:45 Carbohydrates For Hypoglycemia PO 09/10/21 21:22 15 gm UD PRN Administration Hypoglycemia Protocol Multivitamins/Folic Acid/Vitamin C 1 tab 08/12/21 09:00 08/14/21 07:32 Multivitamin Chewable Tab PO 09/11/21 08:59 1 tab DAILY SIMEON Administration Pantoprazole Sodium 40 mg 08/11/21 21:45 08/14/21 07:32 Pantoprazole 40 Mg Tab PO 09/10/21 21:44 40 mg BID SIMEON Administration Potassium Chloride 10 meq 08/12/21 09:00 08/14/21 07:32 Potassium Chloride 10 Meq Tabcr PO 09/11/21 08:59 10 meq DAILY SIMEON Administration Warfarin Sodium 3 mg 08/11/21 21:23 08/14/21 15:54 Warfarin Sod 3 Mg Tab PO 09/10/21 21:22 Not Given DAILY@1600 [facility] NPO Date Last Intake of Fluids: 08/14/21 Time Last Intake of Fluids: 00:00 Date Last Intake of Solids: 08/14/21 Time Last Intake of Solids: 00:00 Past Medical History Medical History Aortic valve stenosis CKD (chronic kidney disease) stage 3, GFR 30-59 ml/min Diabetes Diastolic CHF Dyslipidemia GERD (gastroesophageal reflux disease) HTN (hypertension) Morbid obesity with BMI of 50.0-59.9, adult Obstructive sleep apnea Paroxysmal A-fib Pulmonary HTN Vitamin D deficiency Exercise / Class Metabolic Activity III < 4 Walking/Shop/Light housework Past Family History Family History Father Cancer pancreatic cancer Past Surgical History Surgical History History of cardiac cath Hx of total knee arthroplasty S/P AVR Past Anesthesia History No Hx of Anesthesia Complications and No Family Hx of Anesthesia Complications History of PONV No Hx of PONV and No Hx of Motion Sickness Social History Smoking Status: Never smoker Hx Alcohol Use: No Hx Substance Use: No substance use type: does not use Physical Exam Vital Signs Last Vital Signs Temp 36.5 C 08/14/21 16:09 Pulse 78 08/14/21 16:09 Resp 18 08/14/21 16:09 BP 119/53 L 08/14/21 16:09 Pulse Ox 98 08/14/21 16:09 Constitutional + morbidly obese ENMT Mouth: + dentition abnormality, + edentulous and + poor dentition Thyromental Distance: < 3.5 Finger Breadths Mallampati Class: II Neck normal visual inspection and trachea midline; neck extension not limited Respiratory + uses accessory muscles Auscultation: + diminished lung sounds Cardiovascular Rate/Rhythm: regular rate and regular rhythm Heart Sounds: + murmur (nitish at RUSB,2/6;and at apex 2/6 nitish) Vessels: no carotid bruit Musculoskeletal Spine: normal cervical ROM Extremities: + extremities abnormal to inspection Neurologic moves all extremities Motor/Sensory: no sensory deficit Psychiatric Orientation: alert and oriented x 3 Testing Laboratory Results 08/14/21 07:23 08/14/21 07:23 PT 14.4 Seconds (9.0-12.0) H 08/14/21 07:23 INR 1.4 (0.9-1.1) H 08/14/21 07:23 APTT 63.8 Seconds (21.0-31.0) H* 08/14/21 07:23 Urine Color Yellow 08/11/21 23:57 Urine Appearance Cloudy (Clear) A 08/11/21 23:57 Urine pH 7.0 (4.5-7.5) 08/11/21 23:57 Ur Specific [place] 1.007 (1.000-1.030) 08/11/21 23:57 Urine Protein Negative (Negative) 08/11/21 23:57 Urine Glucose (UA) Negative (Negative) 08/11/21 23:57 Urine Ketones Negative (Negative) 08/11/21 23:57 Urine Nitrite Negative (Negative) 08/11/21 23:57 Ur Leukocyte Esterase 3+ (Negative) H 08/11/21 23:57 Urine WBC (Auto) >30 /hpf (0-5) H 08/11/21 23:57 Urine RBC (Auto) 0-4 /hpf (0-4) 08/11/21 23:57 U Hyaline Cast (Auto) 0 /lpf (0-5) 08/11/21 23:57 U Epithel Cells (Auto) 0-5 /lpf (0-5) 08/11/21 23:57 Urine Bacteria (Auto) Negative (Negative) 08/11/21 23:57 08/11/21 23:57 Urine Culture - Final Urine,Clean Catch Gram negative bacilli 08/11/21 15:15 Aerobic Blood Culture - Preliminary Blood No growth in Aerobic bottle after 48 hours. Anaerobic Blood Culture - Preliminary No growth in Anaerobic bottle after 48 hours. 08/11/21 13:38 Aerobic Blood Culture - Preliminary Blood No growth in Aerobic bottle after 48 hours. Anaerobic Blood Culture - Preliminary No growth in Anaerobic bottle after 48 hours. 08/14/21 08/14/21 11:26 07:33 POC Glucose 103 H 124 H
[2021-08-14] MEDS: fentaNYL citrate 100 MCG/2 ML VIAL IV PRN ×2 (19:50→19:55)
--- NOTE | 2021-08-14 19:51 | Post Operative Brief Note ---
Immediate Post Op Note v1 Date of Surgery August 14, 2021 Pre & Post Diagnosis Operation Date: 08/14/21 08:20 Pre-Op Diagnosis: Diabetic neuropathic foot ulcer right heel 2 cm x 1.5 cm x 1.4 cm, right heel abscess Post-Op Diagnosis: Diabetic neuropathic foot ulcer right heel 2 cm x 1.5 cm x 1.4 cm, right heel abscess I identified the patient and participated in the time-out.: Yes Procedure Operation Date: 08/14/21 08:20 Actual Procedures p 1. Irrigation and Debridement Diabetic Neuropathic Right Heel Ulcer 2.0cmx1.5cmx1.4cm including skin, subcutaneous tissue, fascia and periosteum s 2. Evacuation abscess right heel (Right) - Eric Yung DO Surgeon Eric Yung DO Shrimper Robert Disla PA-C Estimated Blood Loss 1 Findings Consistent with Post-Op Diagnosis Specimens Aerobic, anaerobic, Gram stain right heel abscess Drains Other (1/2 inch iodoform gauze) Anesthesia Type MAC Regional Complications none Disposition Accompanied Patient To Recovery: No
--- NOTE | 2021-08-14 20:11 | Anesthesiology Progress Note ---
Date of Service August 14, 2021 Anesthesia Post Procedure Vital Signs Vital Signs: Temp Pulse Pulse Pulse Resp BP BP 08/14/21 20:00 75 16 123/53 L 08/14/21 19:51 36.3 C L 78 16 108/42 L 08/14/21 16:09 36.5 C 78 18 119/53 L 08/14/21 14:51 69 08/14/21 14:45 36.9 C 69 18 112/57 L 08/14/21 10:50 36.8 C 73 18 123/70 08/14/21 07:35 36.7 C 57 L 18 151/52 H 08/14/21 07:20 66 08/14/21 03:20 37 C 83 20 146/73 H 08/13/21 22:18 82 08/13/21 22:15 36.9 C 84 20 134/67 08/13/21 21:00 Pulse Ox Pulse Ox 08/14/21 20:00 100 08/14/21 19:51 99 08/14/21 16:09 98 08/14/21 14:51 08/14/21 14:45 97 08/14/21 10:50 96 08/14/21 07:35 93 08/14/21 07:20 08/14/21 03:20 98 08/13/21 22:18 08/13/21 22:15 98 08/13/21 21:00 98 Pain Intensity Right Heel: Pain Intensity: 6 Generalized: Pain Intensity: 5 Transfer of Care Handoff Completed per policy Notes Mental Status: alert / awake / arousable and participated in evaluation Nausea / Vomiting: adequately controlled Pain: adequately controlled Airway Patency, RR, SpO2: stable & adequate BP & HR: stable & adequate Hydration State: stable & adequate Anesthetic Complications: no major complications apparent and Pt Satisfied with anesthetic care
[2021-08-14] MEDS ORDERED: diphenhydrAMINE Capsule 25 MG CAP PO PRN (20:35)
[2021-08-14] MEDS ORDERED: bisacodyL 10 MG SUPP PR PRN (20:35)
[2021-08-14] MEDS: ATORVASTATIN 20 MG TAB PO SCH (22:20)
[2021-08-14] MEDS: SENNA 8.6 MG TAB PO SCH (22:20)
[2021-08-14] MEDS: ACETAMINOPHEN 325 MG TAB PO PRN (22:27)
[2021-08-15 05:51] LABS: Basophils # (auto) 0.02 K/uL (0-0.2); Basophils % (auto) 0.4 %; Eosinophils # (auto) 0.44 K/uL (0-0.5); Eosinophils % (auto) 8.3 %; Hematocrit (blood only) 23.8 % (37-47); Hemoglobin 7.1 g/dL (12.0-16.0); Lymphocytes # (auto) 1.08 K/uL (1.2-3.4); Lymphocytes % (auto) 20.5 %; Mean Corpuscular Hemoglobin 28.4 pg (25-34); Mean Corpuscular Hgb Conc 29.8 g/dL (32-36); Mean Corpuscular Volume 95.2 fL (80-100); Mean Platelet Volume 8.7 fL (7.4-10.4); Monocytes # (auto) 0.42 K/uL (0.11-0.59); Neutrophils # (auto) 3.32 K/uL (1.4-6.5); Neutrophils % (auto) 62.8 %; Platelet Count 293 K/uL (130-400); RDW Coefficient of Variation 15.1 % (11.5-14.5); RDW Standard Deviation 52.2 fL (36.4-46.3); White Blood Count 5.28 K/uL (4.8-10.8)
[2021-08-15 06:04] LABS: INR 1.5 (0.9-1.1); Partial Thromboplastin Time 26.2 Seconds (21.0-31.0); Prothrombin Time 15.2 Seconds (9.0-12.0)
[2021-08-15 06:07] LABS: BUN Creatinine Ratio 23.2 (10-20); Calcium 9.1 mg/dl (8.5-10.1); Est GFR (Non-African American) 57.8 ml/min; Potassium 4.8 mmol/L (3.5-5.1)
[2021-08-15] MEDS: CEFEPIME 2,000 MG in SYRINGE 0 ML IV SCH ×3 (06:07→23:31)
[2021-08-15] MEDS: DOXYCYCLINE HYCLATE 100 MG CAP PO SCH ×2 (06:07→19:54)
[2021-08-15 06:12] LABS: Basophilic Stippling 1+; Polychromasia 1+
--- NOTE | 2021-08-15 06:18 | Operative Report (OR) ---
PREOPERATIVE DIAGNOSES: 1. Right heel diabetic neuropathic ulcer measuring 2.0 cm x 1.5 cm x 1.4 cm. 2. Right heel abscess. POSTOPERATIVE DIAGNOSES: 1. Right heel diabetic neuropathic ulcer measuring 2.0 cm x 1.5 cm x 1.4 cm. 2. Right heel abscess. PROCEDURE: 1. Irrigation and debridement of right heel diabetic neuropathic ulcer measuring 2.0 cm x 1.5 cm x 1 .4 cm including skin, subcutaneous tissue, periosteum, and fascia. 2. Evacuation of abscess, right heel. SURGEON: Eric Yung DO FISHER: Robert Disla PA-C, who was present for patient positioning, sterile prep and drape, man agement of retractors and instruments. He was present through the critical portions of the case inclu ding wound closure, application of sterile dressing and transport of the patient to recovery. ANESTHESIA: MAC regional. SPECIMENS: Aerobic, anaerobic, Gram stain, right heel abscess. DRAINS: A 1/2-inch iodoform gauze x1. COMPLICATIONS: None. BLOOD LOSS: 1 mL. PERTINENT HISTORY: This is a 75-year-old woman with multiple medical comorbidities, stage IV ASA. S he had begun to develop pain in her right heel. She was [facility] and orthopedics was then consulted for the heel ulcer. She had radiographs and C T scan, which are questioning any abscess; however, had clear indication of the heel ulceration and d ue to the region of necrosis surrounding the heel ulceration, foul odor, and discharge, and drainage, the patient was then scheduled for surgery as indicated. All potential risks, benefits, complications, alternatives, rehab potential for incomplete relief of symptoms, need for further surgery, DVT, PE, , persistent pain, swelling, scarring, weakness, ne urovascular injury, wound complications, need for further debridement or amputation were discussed wi th the patient. The pateint decided to proceed with procedure as indicated. DESCRIPTION OF PROCEDURE: The patient was taken to the operative suite and placed supine on the oper ating room table. After review of consent and identification of proper site, the patient was sedated . Right ankle and lower extremity was then sterilely prepped with Betadine and then a partial ankle block and local anesthetic was then performed around the right heel and right ankle with 0.5% Marcain e plain, approximately 20 mL and then 10 mL of 1% lidocaine plain. Next, right lower extremity was t hen sterilely prepped and draped in the usual fashion, elevated and partially exsanguinated with an E smarch bandage, placed over sterile surgical towel to achieve tourniquet. Next, after surgical timeout was performed, sharp debridement of the diabetic neuropathic ulcer measu ring 2.0 x 1.5 x 1.4 cm in the plantar lateral aspect of the right heel was performed including sharp and dull dissection including levels with the skin, subcutaneous tissue, periosteum, and fascia. La rge curette was then used to curettage around the ulcer, which then went deep to a depth of 1.4 cm wi abscess fluid, which was collected as a pocket was noted adjacent to the ulcer not mentioned on e CT scan. Aerobic, anaerobic, Gram stain specimen was captured and then sent for laboratory evaluat ion. Next, after all necrotic tissue was sharply excised with a combination use of rongeur, 15 blade scalp el, and tenotomy scissors, pulsatile lavage 3 liters with Ancef was then used to lavage the heel ulce ration and abscess until clear. Next, top gloves and top sheet were changed. A 1/2-inch iodoform gauze packing was packed in loosely to encourage discharge and drainage and then the ulceration was then loosely approximated using inte rrupted 3-0 nylon sutures to help reduce the surface area of the ulceration to enhance healing potent ial. Next, a sterile compressive dressing was applied consisting of Xeroform gauze, sterile 4 x 4's, sterile cast padding, ABD pad, and Nahid wrap. The tourniquet was released. The patient was awakened and taken to recovery in stable condition. Job ID: [id number]
--- NOTE | 2021-08-15 06:38 | Orthopedic Progress Note ---
Date of Service August 15, 2021 Assessment & Plan (1) Foot ulcer, right: Plan: POD #1 s/p I&D of Diabetic Neuropathic Right Heel Ulcer 2cm x 1.5cm x 1.4cm, including skin, subcutaneous, periosteum dressing change tomorrow, will pull part of the packing cont to RICE NWB on the right heel can resume her anticoagulants recommend continuation of her Abx as per medicine Admission and Anticipated Discharge Date Admission Date: August 11, 2021 Subjective POD #1 s/p Incision and Debridement of Diabetic Neuropathic Right Heel Ulcer 2cm x 1.5cm x 1.4cm, including skin, subcutaneous, periosteum Review of Systems Constitutional: no fever and no chills Respiratory: no cough and no dyspnea Cardiovascular: no chest pain, no dyspnea and no orthopnea Gastrointestinal: no abdominal pain, no nausea and no vomiting Physical Exam Physical Exam: Vital Signs Temp 36.7 C 08/15/21 03:48 Pulse 71 08/15/21 03:48 Resp 20 08/15/21 03:48 BP 127/75 08/15/21 03:48 Pulse Ox 100 08/15/21 03:48 Intake & Output 08/14/21 08/14/21 08/15/21 06:59 18:59 06:59 Intake Total 1786.066 / 3237.29 9 143.733 / 713.733 570 / 713.733 Output Total 3000 / 4100 999 / 2051 Balance -1213.934 / -862.7 01 -856.267 / -1338.2 67 -482 / -1338.267 Weight 131.2 kg 131.2 kg 129.8 kg Intake: IV 1286.066 / 1602.29 9 143.733 / 143.733 Heparin Sodium /Dextrose 25,000 286.066 / 602.299 143.733 / 143.733 units In 500 m l @ 1,400 UNITS/ HR 28 mls/hr I V .[id number] SIMEON Rx #:[id number] Sodium Chlorid e 0.9% 1000ML 1, 1000 / 1000 000 ml @ 100 m ls/hr IV .Q10H SIMEON Rx#:[id number] IV Perioperative 400 / 400 Oral 500 / 1635 170 / 170 Output: Urine 200 / 200 Estimated Blood Loss 2 / 2 Urine Amount (Ca theter) 3000 / 4100 1000 / 1850 850 / 1850 External 3000 / 4100 1000 / 1850 850 / 1850 Other: Other Intake Jess rce NPO NPo Weight Measureme nt Method Built in [facility] Musculoskeletal: Right foot: dressing clean and dry, no drainage noted. she can wiggle toes, ankle dorsi/plantar flexion without pain. calf SNT Results & Data ([facility]) Vital Signs (Past 12 Hours) Vital Signs Temp Pulse Pulse Pulse Resp BP Pulse Ox 08/15/21 03:48 36.7 C 71 20 127/75 100 08/14/21 22:25 86 08/14/21 22:05 36.5 C 76 80 20 90 08/14/21 21:42 36.5 C 80 20 112/68 90 08/14/21 21:07 36.8 C 81 18 101/50 L 94 08/14/21 21:00 08/14/21 20:46 75 08/14/21 20:45 36.3 C L 76 16 113/62 95 08/14/21 20:22 36.8 C 87 16 124/71 91 08/14/21 20:10 36.4 C L 82 16 123/57 L 100 08/14/21 20:00 75 16 123/53 L 100 08/14/21 19:51 36.3 C L 78 16 108/42 L 99 Pulse Ox 08/15/21 03:48 08/14/21 22:25 08/14/21 22:05 08/14/21 21:42 08/14/21 21:07 08/14/21 21:00 95 08/14/21 20:46 08/14/21 20:45 08/14/21 20:22 08/14/21 20:10 08/14/21 20:00 08/14/21 19:51
[2021-08-15] MEDS: POTASSIUM CHLORIDE 10 MEQ TABCR PO SCH (07:20)
[2021-08-15] MEDS: MULTIVITAMIN CHEWABLE TAB PO SCH (07:20)
[2021-08-15] MEDS: MAGNESIUM CHLORIDE 64MG DELAYED REL TAB PO SCH (07:20)
[2021-08-15] MEDS: MULTIVITAMIN TAB PO SCH (07:20)
[2021-08-15] MEDS: PANTOprazole 40 MG TAB PO SCH ×2 (07:21→20:22)
[2021-08-15] MEDS: FERROUS SULFATE 325 MG TAB PO SCH (07:21)
[2021-08-15] MEDS: AMMONIUM LACTATE 12% LOTION 225 GM BTL EXT SCH ×2 (07:22→20:20)
[2021-08-15] MEDS: MICONAZOLE NITRATE POWDER 43 GM EXT SCH ×2 (07:23→20:22)
[2021-08-15] MEDS: INSULIN GLARGINE SOLOSTAR 100 UNITS/ML 3 ML PEN SC SCH ×2 (08:14→20:22)
[2021-08-15] MEDS: INSULIN ASPART PER UNIT SC SCH ×4 (08:17→20:23)
--- NOTE | 2021-08-15 13:55 | Hospitalist Progress Note ---
Date of Service August 15, 2021 Assessment & Plan (1) Foot ulcer, right: Plan: Infected diabetic foot ulcer POD #2 s/p Incision and Debridement of Diabetic Neuropathic Right Heel Ulcer 2cm x 1.5cm x 1.4cm, including skin, subcutaneous, periosteumFollow-up OR cultures. As she has a recent PE and bilateral DVT diagnosed two weeks ago, she is on full anticoagulation including coumadin with a heparin bridge. Heparin held for surgery but should be restarted as soon as possible after (2) Bilateral lower leg cellulitis: Plan: Redness improved per patient, although it is still there and appears severe. Recent hospitalization was treated initially with Rocephin, changed to cefepime then to cefazolin, finished 14-day course for BLE cellulitis. Continues on Dapto and Zosyn as above. Signifiant improvement in erythema. (3) Current use of long-term anticoagulation: Plan: She is on warfarin for h/o PAF and recent acute PE and acute bilateral DVT found during last admission. She has anemia, and was evaluated last admission by vascular for IVC placement, however, this was not recommended. She had an EGD on 07/27/21 with two superficial ulcers in duodenal bulb found, the larger one empirically clipped. She has no overt bleeding. Cont anticoagulation. As INR is subtherapeutic continue heparin drip. (4) Pulmonary embolism: Plan: Acute PE in July 2021 along with bilateral DVT. Plan as above. Needs to have therapeutic INR for at least 3-6 months. (5) Weakness: Plan: Pt is agreeable to SNF. (6) Morbid obesity: (7) Anemia: Plan: Anemia secondary to history of recent GI bleed. No significant change from recent Hb levels. No reported melena, hematochezia, hematemesis, hematuria, epistaxis Monitor (8) Chronic kidney disease (CKD), stage III (moderate): Plan: chronic, stable. Cont to monitor. (9) DMII (diabetes mellitus, type 2): Plan: chronic, uncontrolled with A1C 12. Cont current insulin regimen in hospital with glucose levels looking controlled. (10) DVT prophylaxis: Plan: heparin/warfarin Full Code Dispo-cont hospitalization Admission and Anticipated Discharge Date Admission Date: August 11, 2021 Subjective Patient with a history of uncontrolled diabetes recent A1c 12 with right heel ulcer malodorous on presentation empirically initiated on antibiotics POD #2 s/p Incision and Debridement of Diabetic Neuropathic Right Heel Ulcer 2cm x 1.5cm x 1.4cm, including skin, subcutaneous, periosteum Patient currently feeling well states she is just sore in her foot otherwise no new complaints denies have any chest pain shortness of breath nausea vomiting. Review of Systems Review of Systems: All systems reviewed and negative other than as described above in the history and physical Physical Exam Physical Exam: CONSTITUTIONAL: obese, vitals as above, generally well- appearing, NAD NECK: trachea midline RESPIRATORY: clear to auscultation bilaterally, no crackles, rales or wheezes, normal respiratory effort CARDIOVASCULAR: regular rate and rhythm, S1 and 2 heard without murmurs, gallops or rubs, no JVD, no peripheral edema CHEST: inspection of chest was normal GASTROINTESTINAL: soft, nontender, ND Other than obesity, no guarding MUSCULOSKELETAL: generalized weakness, Right lower extremity feet is wrapped Results & Data Results & Data ([facility]) Vital Signs (Past 12 Hours) Vital Signs Temp Pulse Pulse Resp BP Pulse Ox 08/15/21 11:10 36.9 C 76 18 133/58 L 97 08/15/21 07:44 37.0 C 66 18 112/64 100 08/15/21 07:10 66 08/15/21 03:48 36.7 C 71 20 127/75 100 Laboratory Results Laboratory Results WBC 5.28 K/uL (4.8-10.8) 08/15/21 05:14 RBC 2.50 M/uL (4.2-5.4) L 08/15/21 05:14 Hgb 7.1 g/dL (12.0-16.0) L 08/15/21 05:14 Hct 23.8 % (37-47) L 08/15/21 05:14 MCV 95.2 fL (80-100) 08/15/21 05:14 MCH 28.4 pg (25-34) 08/15/21 05:14 MCHC 29.8 g/dL (32-36) L 08/15/21 05:14 RDW Std Deviation 52.2 fL (36.4-46.3) H 08/15/21 05:14 RDW Coeff of Jacqueline 15.1 % (11.5-14.5) H 08/15/21 05:14 Plt Count 293 K/uL (130-400) 08/15/21 05:14 MPV 8.7 fL (7.4-10.4) 08/15/21 05:14 Immature Gran % (Auto) 0.0 % 08/15/21 05:14 Neut % (Auto) 62.8 % 08/15/21 05:14 Lymph % (Auto) 20.5 % 08/15/21 05:14 Sully % (Auto) 8.0 % 08/15/21 05:14 Eos % (Auto) 8.3 % 08/15/21 05:14 Baso % (Auto) 0.4 % 08/15/21 05:14 Neut # (Auto) 3.32 K/uL (1.4-6.5) 08/15/21 05:14 Lymph # (Auto) 1.08 K/uL (1.2-3.4) L 08/15/21 05:14 Sully # (Auto) 0.42 K/uL (0.11-0.59) 08/15/21 05:14 Eos # (Auto) 0.44 K/uL (0-0.5) 08/15/21 05:14 Baso # (Auto) 0.02 K/uL (0-0.2) 08/15/21 05:14 Immature Gran # (Auto) 0.00 K/uL (0.00-0.02) 08/15/21 05:14 Polychromasia 1+ 08/15/21 05:14 Basophilic Stippling 1+ 08/15/21 05:14 Rouleaux 1+ 08/13/21 07:23 PT 15.2 Seconds (9.0-12.0) H 08/15/21 05:14 INR 1.5 (0.9-1.1) H 08/15/21 05:14 APTT 26.2 Seconds (21.0-31.0) 08/15/21 05:14 PTT Ratio 1.0 08/15/21 05:14 Sodium 138 mmol/L (136-145) 08/15/21 05:14 Potassium 4.8 mmol/L (3.5-5.1) 08/15/21 05:14 Chloride 102 mmol/L (98-107) 08/15/21 05:14 Carbon Dioxide 33 mmol/L (21-32) H 08/15/21 05:14 Anion Gap 3 (3-11) 08/15/21 05:14 BUN 22 mg/dl (6-23) 08/15/21 05:14 Creatinine 0.95 mg/dl (0.6-1.2) 08/15/21 05:14 Est Cr Clr Drug Dosing 70.0 ml/min 08/15/21 05:14 Est GFR ( Amer) 67.0 ml/min 08/15/21 05:14 Est GFR (Non-Af Amer) 57.8 ml/min 08/15/21 05:14 BUN/Creatinine Ratio 23.2 (10-20) H 08/15/21 05:14 Glucose 98 mg/dl (70-99(Fasting)) 08/15/21 05:14 POC Glucose 156 mg/dl (70-99) H 08/15/21 11:35 Lactate 1.0 mmol/L (0.4-2.0) 08/11/21 15:15 Calcium 9.1 mg/dl (8.5-10.1) 08/15/21 05:14 Phosphorus 4.7 mg/dl (2.5-4.9) 08/12/21 07:00 Magnesium 1.8 mg/dl (1.7-2.4) 08/13/21 01:12 Total Bilirubin 0.8 mg/dl (0.2-1.0) 08/11/21 13:38 AST 27 U/L (13-39) 08/11/21 13:38 ALT 13 U/L (7-52) 08/11/21 13:38 Alkaline Phosphatase 65 U/L (34-104) 08/11/21 13:38 Total Protein 7.8 gm/dl (6.0-8.3) 08/11/21 13:38 Albumin 3.4 gm/dl (3.4-5.0) 08/11/21 13:38 Globulin 4.4 gm/dl (2.5-4.0) H 08/11/21 13:38 Albumin/Globulin Ratio 0.8 (0.9-2) L 08/11/21 13:38 Urine Color Yellow 08/11/21 23:57 Urine Appearance Cloudy (Clear) A 08/11/21 23:57 Urine pH 7.0 (4.5-7.5) 08/11/21 23:57 Ur Specific [place] 1.007 (1.000-1.030) 08/11/21 23:57 Urine Protein Negative (Negative) 08/11/21 23:57 Urine Glucose (UA) Negative (Negative) 08/11/21 23:57 Urine Ketones Negative (Negative) 08/11/21 23:57 Urine Blood 1+ (Negative) H 08/11/21 23:57 Urine Nitrite Negative (Negative) 08/11/21 23:57 Urine Bilirubin Negative (Negative) 08/11/21 23:57 Urine Urobilinogen Negative (Negative) 08/11/21 23:57 Ur Leukocyte Esterase 3+ (Negative) H 08/11/21 23:57 Urine WBC (Auto) >30 /hpf (0-5) H 08/11/21 23:57 Urine RBC (Auto) 0-4 /hpf (0-4) 08/11/21 23:57 U Hyaline Cast (Auto) 0 /lpf (0-5) 08/11/21 23:57 U Epithel Cells (Auto) 0-5 /lpf (0-5) 08/11/21 23:57 Urine Bacteria (Auto) Negative (Negative) 08/11/21 23:57 SARS-CoV-2, RNA, NAAT NEGATIVE (NEGATIVE) 08/11/21 15:[address] 08/11/21 14:14 CT foot RT wo con CLINICAL HISTORY: Right foot pain. poss osteo, foul odor, drainage COMPARISON STUDY: Previous CT from 07/25/2021 CT DOSE: TECHNIQUE: Standard CT of the is performed without IV contrast. Multiplanar reconstruction is performed. A dose lowering technique was utilized adhering to the principles of ALARA. FINDINGS: Bones: Compared to the previous examination, the bones are again osteopenic with no evidence for cortical destruction or CT evidence for osteomyelitis. There is no evidence for an acute fracture or dislocation. There is a small calcaneal spur at the origin of the plantar fascia. There is mild Achilles enthesopathy present. There are no lytic or blastic lesions. Joints: There is again moderate to marked joint space narrowing seen involving the intertarsal and tarsometatarsal joints. Mild to moderate joint space narrowing is present of the MTP joints and IP joints. 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 The bones are in anatomic alignment. Soft tissues: There is again marked diffuse cellulitis surrounding the ankle and foot with diffuse subcutaneous edema and skin thickening present. Soft tissue ulceration along the plantar aspect of the heel now measures 15 mm. No underlyi ng abscess is seen. There are no focal fluid collections. IMPRESSION: 1. Marked cellulitis is again seen with diffuse subcutaneous edema and skin thickening. Moderate to marked swelling of the foot is again noted. 2. Skin ulceration at the plantar aspect of the heel now measures 15 mm. No underlying fluid collection or abscess is seen. 3. No CT evidence for osteomyelitis. 4. Marked osteoarthritis. ACT 112: Negative or not required by law. Electronically signed by: Albaro Castillo M.D. 08/11/2021 3:22 PM Medications Administered Current Inpatient Medications Acetaminophen (Acetaminophen 325 Mg Tab) 650 mg PO Q4H PRN PRN Reason: Pain or Fever Stop: 09/10/21 21:22 Last Admin: 08/14/21 22:27 Dose: 650 mg Documented by: Atorvastatin Calcium (Atorvastatin 20 Mg Tab) 20 mg PO QPM SIMEON Stop: 09/13/21 20:59 Last Admin: 08/14/21 22:20 Dose: 20 mg Documented by: Bisacodyl (Bisacodyl 10 Mg Supp) 10 mg DE DAILY PRN PRN Reason: Constipation Stop: 09/13/21 20:34 Dextrose (Dextrose 50% 50 Ml Syringe) 25 - 50 ml IV UD PRN; Protocol PRN Reason: Hypoglycemia Protocol Stop: 09/10/21 21:22 Diphenhydramine HCl (Diphenhydramine Capsule 25 Mg Cap) 25 mg PO Q8H PRN PRN Reason: Itching Stop: 09/13/21 20:34 Doxycycline Hyclate (Doxycycline Hyclate 100 Mg Cap) 100 mg PO BID@0700,1900 SIMEON Stop: 08/19/21 06:59 Last Admin: 08/15/21 06:07 Dose: 100 mg Documented by: Ferrous Sulfate (Ferrous Sulfate 325 Mg Tab) 325 mg PO DAILY SIMEON Stop: 09/11/21 08:59 Last Admin: 08/15/21 07:21 Dose: 325 mg Documented by: Glucagon (Glucagon For Inj 1 Mg Vial) 1 mg SQ UD PRN; Protocol PRN Reason: Hypoglycemia Protocol Stop: 09/10/21 21:22 Glucose (Glucose 10 Tabs/Tube) 4 - 8 tabs PO UD PRN; Protocol PRN Reason: Hypoglycemia Protocol Stop: 09/10/21 21:22 Glucose (Glucose 40% Gel 15 Gm Tube) 15 - 30 gm PO UD PRN; Protocol PRN Reason: Hypoglycemia Protocol Stop: 09/10/21 21:22 Heparin Sodium/Dextrose (Heparin Sodium/Dextrose) 25,000 units in 500 mls @ 32 mls/hr IV .[id number] [facility]; Protocol Stop: 09/11/21 17:29 Last Titration: 08/15/21 09:14 Dose: 1,600 units/hr, 32 mls/hr Documented by: Cefepime HCl 2,000 mg/ Syringe 20 mls @ 5 mls/min IV Q8H [facility]; Protocol Stop: 08/20/21 13:59 Insulin Aspart (Insulin Aspart Per Unit) 0 units SC ACHS [facility] Stop: 09/10/21 21:22 Last Admin: 08/15/21 12:18 Dose: 10 units Documented by: Insulin Glargine (Insulin Glargine Solostar 100 Units/Ml 3 Ml Pen) 20 units SC BID [facility] Stop: 09/11/21 20:59 Last Admin: 08/15/21 08:14 Dose: 20 units Documented by: Lactic Acid (Ammonium Lactate 12% Lotion 225 Gm Btl) 1 gm EXT BID [facility] Stop: 09/10/21 21:44 Last Admin: 08/15/21 07:22 Dose: 1 gm Documented by: Lisinopril (Lisinopril 5 Mg Tab) 5 mg PO DAILY [facility] Stop: 09/11/21 08:59 Last Admin: 08/13/21 08:01 Dose: 5 mg Documented by: Magnesium Chloride (Magnesium Chloride 64mg Delayed Rel Tab) 64 mg PO DAILY [facility] Stop: 09/11/21 08:59 Last Admin: 08/15/21 07:20 Dose: 64 mg Documented by: Miconazole Nitrate (Miconazole Nitrate Powder 43 Gm) 1 appln EXT BID [facility] Stop: 09/10/21 21:44 Last Admin: 08/15/21 07:23 Dose: 1 appln Documented by: Miscellaneous (Carbohydrates For Hypoglycemia ) 15 - 30 gm PO UD PRN PRN Reason: Hypoglycemia Protocol Stop: 09/10/21 21:22 Last Admin: 08/12/21 07:45 Dose: 15 gm Documented by: Multivitamins (Multivitamin Tab) 1 tab PO QAM [facility] Stop: 09/14/21 08:59 Last Admin: 08/15/21 07:20 Dose: 1 tab Documented by: Multivitamins/Folic Acid/Vitamin C (Multivitamin Chewable Tab) 1 tab PO DAILY [facility] Stop: 09/11/21 08:59 Last Admin: 08/15/21 07:20 Dose: 1 tab Documented by: Ondansetron HCl (Ondansetron Inj 2 Mg/Ml 2 Ml Vial) 4 mg IV Q6H PRN PRN Reason: Nausea Stop: 09/10/21 21:22 Pantoprazole Sodium (Pantoprazole 40 Mg Tab) 40 mg PO BID [facility] Stop: 09/10/21 21:44 Last Admin: 08/15/21 07:21 Dose: 40 mg Documented by: Polyethylene Glycol (Polyethylene (Miralax) 17 Gm Pack) 17 gm PO DAILY PRN PRN Reason: Constipation Stop: 09/10/21 21:22 Potassium Chloride (Potassium Chloride 10 Meq Tabcr) 10 meq PO DAILY [facility] Stop: 09/11/21 08:59 Last Admin: 08/15/21 07:20 Dose: 10 meq Documented by: Sennosides (Senna 8.6 Mg Tab) 17.2 mg PO HS [facility] Stop: 09/13/21 20:59 Last Admin: 08/14/21 22:20 Dose: 17.2 mg Documented by: Warfarin Sodium (Warfarin Sod 3 Mg Tab) 3 mg PO DAILY@1600 [facility] Stop: 09/10/21 21:22 Last Admin: 08/14/21 15:54 Dose: Not Given Documented by:
[2021-08-15] MEDS: WARFARIN SOD 3 MG TAB PO SCH (15:50)
[2021-08-15 16:20] LABS: Partial Thromboplastin Ratio 1.8
[2021-08-15 16:28] LABS: Partial Thromboplastin Time 50.2 Seconds (21.0-31.0)
[2021-08-15] MEDS: ACETAMINOPHEN 325 MG TAB PO PRN (17:45)
[2021-08-15] MEDS ORDERED: oxyCODONE HCL IR 5 MG TAB (IMMEDIATE RELEASE) PO STA (19:43)
[2021-08-15] MEDS: ATORVASTATIN 20 MG TAB PO SCH (20:21)
[2021-08-15] MEDS: SENNA 8.6 MG TAB PO SCH (20:22)
[2021-08-15] MEDS: HEPARIN SODIUM/DEXTROSE 25,000 UNITS/500 ML BAG IV SCH (20:35)
[2021-08-16] MEDS ORDERED: oxyCODONE HCL IR 5 MG TAB (IMMEDIATE RELEASE) PO PRN (01:44)
[2021-08-16] MEDS: CEFEPIME 2,000 MG in SYRINGE 0 ML IV SCH ×3 (06:31→22:06)
[2021-08-16] MEDS: DOXYCYCLINE HYCLATE 100 MG CAP PO SCH ×2 (06:32→21:56)
--- NOTE | 2021-08-16 06:48 | Orthopedic Progress Note ---
Date of Service August 16, 2021 Assessment & Plan (1) Foot ulcer, right: Plan: POD #2 s/p I&D of Diabetic Neuropathic Right Heel Ulcer 2cm x 1.5cm x 1.4cm, including skin, subcutaneous, periosteum dressing changed this am, 6-7 inches of packing pulled. will cont to pull packing daily. cont to RICE NWB on the right heel she has resumed her anticoagulants. recommend continuation of her Abx as per medicine, ID consult Admission and Anticipated Discharge Date Admission Date: August 11, 2021 Subjective POD #2 s/p Incision and Debridement of Diabetic Neuropathic Right Heel Ulcer 2cm x 1.5cm x 1.4cm, including skin, subcutaneous, periosteum Physical Exam Physical Exam: Vital Signs Temp 36.5 C 08/16/21 06:39 Pulse 83 08/16/21 06:39 Resp 20 08/16/21 06:39 BP 135/66 08/16/21 06:39 Pulse Ox 100 08/16/21 06:39 Intake & Output 08/15/21 08/15/21 08/16/21 06:59 18:59 06:59 Intake Total 570 / 713.733 576.134 / 1066.267 490.133 / 1066.267 Output Total 105 / 2 750 / 2950 2200 / 2950 Balance -482 / -1338.267 -173.866 / -1883.7 33 -1709.867 / -1883. 733 Weight 129.8 kg 130 kg Intake: IV 306.134 / 356.267 50.133 / 356.267 Heparin Sodium /Dextrose 25,000 306.134 / 356.267 50.133 / 356.267 units In 500 m l @ 1,600 UNITS/ HR 32 mls/hr I V .[id number] [facility] Rx #:[id number] IV Perioperative 400 / 400 Oral 170 / 170 270 / 710 440 / 710 Output: Urine 200 / 200 Estimated Blood Loss 2 / 2 Urine Amount (Ca theter) 850 / 1850 750 / 2950 2200 / 2950 External 850 / 1850 750 / 2950 2200 / 2950 Other: Weight Measureme nt Method Built in Bedscale Built in Bedscale Musculoskeletal: Right heel: dressing changed this am, I pulled approximately 6-7 inches of packing from right heel wound. there is no active drainage noted. she can wiggle her toes, plantar/dorsiflex ankle without pain. Results & Data ([facility]) Vital Signs (Past 12 Hours) Vital Signs Temp Pulse Pulse Resp BP Pulse Ox Pulse Ox 08/16/21 06:39 36.5 C 83 20 135/66 100 08/16/21 03:39 36.4 C L 85 18 135/74 96 08/15/21 23:41 95 H 08/15/21 23:12 36.6 C 78 20 118/70 99 08/15/21 21:00 93
[2021-08-16 07:14] LABS: INR 1.6 (0.9-1.1); Partial Thromboplastin Ratio 2.3; Prothrombin Time 16.3 Seconds (9.0-12.0)
[2021-08-16 07:19] LABS: Partial Thromboplastin Time 62.4 Seconds (21.0-31.0)
[2021-08-16] MEDS: MAGNESIUM CHLORIDE 64MG DELAYED REL TAB PO SCH (07:25)
[2021-08-16] MEDS: PANTOprazole 40 MG TAB PO SCH ×2 (07:25→21:56)
[2021-08-16] MEDS: MULTIVITAMIN TAB PO SCH (07:26)
[2021-08-16] MEDS: POTASSIUM CHLORIDE 10 MEQ TABCR PO SCH (07:26)
[2021-08-16] MEDS: FERROUS SULFATE 325 MG TAB PO SCH (07:27)
[2021-08-16] MEDS: MULTIVITAMIN CHEWABLE TAB PO SCH (07:27)
[2021-08-16] MEDS: AMMONIUM LACTATE 12% LOTION 225 GM BTL EXT SCH ×2 (07:29→21:57)
[2021-08-16] MEDS: MICONAZOLE NITRATE POWDER 43 GM EXT SCH ×2 (07:29→21:56)
[2021-08-16] MEDS: INSULIN GLARGINE SOLOSTAR 100 UNITS/ML 3 ML PEN SC SCH ×2 (09:23→21:58)
[2021-08-16] MEDS: INSULIN ASPART PER UNIT SC SCH ×4 (09:23→21:59)
[2021-08-16] MEDS: HEPARIN SODIUM/DEXTROSE 25,000 UNITS/500 ML BAG IV SCH (11:12)
[2021-08-16] MEDS: WARFARIN SOD 3 MG TAB PO SCH (16:20)
--- NOTE | 2021-08-16 16:43 | Hospitalist Progress Note ---
Date of Service August 16, 2021 Assessment & Plan (1) Foot ulcer, right: Plan: Infected diabetic foot ulcer POD #2 s/p Incision and Debridement of Diabetic Neuropathic Right Heel Ulcer 2cm x 1.5cm x 1.4cm, including skin, subcutaneous, periosteumFollow-up OR cultures. As she has a recent PE and bilateral DVT diagnosed two weeks ago, she is on full anticoagulation including coumadin with a heparin bridge. Heparin held for surgery but should be restarted as soon as possible after (2) Bilateral lower leg cellulitis: Plan: Redness improved per patient, although it is still there and appears severe. Recent hospitalization was treated initially with Rocephin, changed to cefepime then to cefazolin, finished 14-day course for BLE cellulitis. Continues on Dapto and Zosyn as above. Signifiant improvement in erythema. (3) Current use of skilled nursing anticoagulation: Plan: She is on warfarin for h/o PAF and recent acute PE and acute bilateral DVT found during last admission. She has anemia, and was evaluated last admission by vascular for IVC placement, however, this was not recommended. She had an EGD on 07/27/21 with two superficial ulcers in duodenal bulb found, the larger one empirically clipped. She has no overt bleeding. Cont anticoagulation. As INR is subtherapeutic continue heparin drip. (4) Pulmonary embolism: Plan: Acute PE in July 2021 along with bilateral DVT. Plan as above. Needs to have therapeutic INR for at least 3-6 months. (5) Weakness: Plan: Pt is agreeable to SNF. (6) Morbid obesity: (7) Anemia: Plan: Anemia secondary to history of recent GI bleed. No significant change from recent Hb levels. No reported melena, hematochezia, hematemesis, hematuria, epistaxis Monitor (8) Chronic kidney disease (CKD), stage III (moderate): Plan: chronic, stable. Cont to monitor. (9) DMII (diabetes mellitus, type 2): Plan: chronic, uncontrolled with A1C 12. Cont current insulin regimen in hospital with glucose levels looking controlled. (10) DVT prophylaxis: Plan: heparin/warfarin Full Code Dispo-cont hospitalization Admission and Anticipated Discharge Date Admission Date: August 11, 2021 Subjective POD #3 s/p Incision and Debridement of Diabetic Neuropathic Right Heel Ulcer 2cm x 1.5cm x 1.4cm, including skin, subcutaneous, periosteum. Eating breakfast when I walked in Review of Systems Review of Systems: All systems reviewed and negative other than as described above in the history and physical Physical Exam Physical Exam: CONSTITUTIONAL: obese, vitals as above, generally well- appearing, NAD NECK: trachea midline RESPIRATORY: clear to auscultation bilaterally, no crackles, rales or wheezes, normal respiratory effort CARDIOVASCULAR: regular rate and rhythm, S1 and 2 heard without murmurs, gallops or rubs, no JVD, no peripheral edema CHEST: inspection of chest was normal GASTROINTESTINAL: soft, nontender, ND Other than obesity, no guarding MUSCULOSKELETAL: generalized weakness, Right lower extremity feet is wrapped Results & Data Results & Data ([facility]) Vital Signs (Past 12 Hours) Vital Signs Temp Pulse Pulse Pulse Resp BP Pulse Ox 08/16/21 15:57 80 08/16/21 15:29 36.8 C 86 18 131/77 94 08/16/21 10:38 36.9 C 84 93 H 18 99/64 L 90 08/16/21 07:18 66 08/16/21 06:39 36.5 C 83 20 135/66 100 Diagnostic Findings Laboratory Results WBC 5.28 K/uL (4.8-10.8) 08/15/21 05:14 RBC 2.50 M/uL (4.2-5.4) L 08/15/21 05:14 Hgb 7.1 g/dL (12.0-16.0) L 08/15/21 05:14 Hct 23.8 % (37-47) L 08/15/21 05:14 MCV 95.2 fL (80-100) 08/15/21 05:14 MCH 28.4 pg (25-34) 08/15/21 05:14 MCHC 29.8 g/dL (32-36) L 08/15/21 05:14 RDW Std Deviation 52.2 fL (36.4-46.3) H 08/15/21 05:14 RDW Coeff of Jacqueline 15.1 % (11.5-14.5) H 08/15/21 05:14 Plt Count 293 K/uL (130-400) 08/15/21 05:14 MPV 8.7 fL (7.4-10.4) 08/15/21 05:14 Immature Gran % (Auto) 0.0 % 08/15/21 05:14 Neut % (Auto) 62.8 % 08/15/21 05:14 Lymph % (Auto) 20.5 % 08/15/21 05:14 [place] % (Auto) 8.0 % 08/15/21 05:14 Eos % (Auto) 8.3 % 08/15/21 05:14 Baso % (Auto) 0.4 % 08/15/21 05:14 Neut # (Auto) 3.32 K/uL (1.4-6.5) 08/15/21 05:14 Lymph # (Auto) 1.08 K/uL (1.2-3.4) L 08/15/21 05:14 Crook # (Auto) 0.42 K/uL (0.11-0.59) 08/15/21 05:14 Eos # (Auto) 0.44 K/uL (0-0.5) 08/15/21 05:14 Baso # (Auto) 0.02 K/uL (0-0.2) 08/15/21 05:14 Immature Gran # (Auto) 0.00 K/uL (0.00-0.02) 08/15/21 05:14 Polychromasia 1+ 08/15/21 05:14 Basophilic Stippling 1+ 08/15/21 05:14 Rouleaux 1+ 08/13/21 07:23 PT 16.3 Seconds (9.0-12.0) H 08/16/21 05:50 INR 1.6 (0.9-1.1) H 08/16/21 05:50 APTT 62.4 Seconds (21.0-31.0) H* 08/16/21 05:50 PTT Ratio 2.3 08/16/21 05:50 Sodium 138 mmol/L (136-145) 08/15/21 05:14 Potassium 4.8 mmol/L (3.5-5.1) 08/15/21 05:14 Chloride 102 mmol/L (98-107) 08/15/21 05:14 Carbon Dioxide 33 mmol/L (21-32) H 08/15/21 05:14 Anion Gap 3 (3-11) 08/15/21 05:14 BUN 22 mg/dl (6-23) 08/15/21 05:14 Creatinine 0.95 mg/dl (0.6-1.2) 08/15/21 05:14 Est Cr Clr Drug Dosing 70.0 ml/min 08/15/21 05:14 Est GFR ( Amer) 67.0 ml/min 08/15/21 05:14 Est GFR (Non-Af Amer) 57.8 ml/min 08/15/21 05:14 BUN/Creatinine Ratio 23.2 (10-20) H 08/15/21 05:14 Glucose 98 mg/dl (70-99(Fasting)) 08/15/21 05:14 POC Glucose 71 mg/dl (70-99) 08/16/21 16:27 Lactate 1.0 mmol/L (0.4-2.0) 08/11/21 15:15 Calcium 9.1 mg/dl (8.5-10.1) 08/15/21 05:14 Phosphorus 4.7 mg/dl (2.5-4.9) 08/12/21 07:00 Magnesium 1.8 mg/dl (1.7-2.4) 08/13/21 01:12 Total Bilirubin 0.8 mg/dl (0.2-1.0) 08/11/21 13:38 AST 27 U/L (13-39) 08/11/21 13:38 ALT 13 U/L (7-52) 08/11/21 13:38 Alkaline Phosphatase 65 U/L (34-104) 08/11/21 13:38 Total Protein 7.8 gm/dl (6.0-8.3) 08/11/21 13:38 Albumin 3.4 gm/dl (3.4-5.0) 08/11/21 13:38 Globulin 4.4 gm/dl (2.5-4.0) H 08/11/21 13:38 Albumin/Globulin Ratio 0.8 (0.9-2) L 08/11/21 13:38 Urine Color Yellow 08/11/21 23:57 Urine Appearance Cloudy (Clear) A 08/11/21 23:57 Urine pH 7.0 (4.5-7.5) 08/11/21 23:57 Ur Specific [place] 1.007 (1.000-1.030) 08/11/21 23:57 Urine Protein Negative (Negative) 08/11/21 23:57 Urine Glucose (UA) Negative (Negative) 08/11/21 23:57 Urine Ketones Negative (Negative) 08/11/21 23:57 Urine Blood 1+ (Negative) H 08/11/21 23:57 Urine Nitrite Negative (Negative) 08/11/21 23:57 Urine Bilirubin Negative (Negative) 08/11/21 23:57 Urine Urobilinogen Negative (Negative) 08/11/21 23:57 Ur Leukocyte Esterase 3+ (Negative) H 08/11/21 23:57 Urine WBC (Auto) >30 /hpf (0-5) H 08/11/21 23:57 Urine RBC (Auto) 0-4 /hpf (0-4) 08/11/21 23:57 U Hyaline Cast (Auto) 0 /lpf (0-5) 08/11/21 23:57 U Epithel Cells (Auto) 0-5 /lpf (0-5) 08/11/21 23:57 Urine Bacteria (Auto) Negative (Negative) 08/11/21 23:57 SARS-CoV-2, RNA, NAAT NEGATIVE (NEGATIVE) 08/11/21 15:[address] 08/11/21 14:14 CT foot RT wo con CLINICAL HISTORY: Right foot pain. poss osteo, foul odor, drainage COMPARISON STUDY: Previous CT from 07/25/2021 CT DOSE: TECHNIQUE: Standard CT of the is performed without IV contrast. Multiplanar reconstruction is performed. A dose lowering technique was utilized adhering to the principles of ALARA. FINDINGS: Bones: Compared to the previous examination, the bones are again osteopenic with no evidence for cortical destruction or CT evidence for osteomyelitis. There is no evidence for an acute fracture or dislocation. There is a small calcaneal spur at the origin of the plantar fascia. There is mild Achilles enthesopathy present. There are no lytic or blastic lesions. Joints: There is again moderate to marked joint space narrowing seen involving the intertarsal and tarsometatarsal joints. Mild to moderate joint space narrowing is present of the MTP joints and IP joints. 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 The bones are in anatomic alignment. Soft tissues: There is again marked diffuse cellulitis surrounding the ankle and foot with diffuse subcutaneous edema and skin thickening present. Soft tissue ulceration along the plantar aspect of the heel now measures 15 mm. No underlying abscess is seen. There are no focal fluid collections. IMPRESSION: 1. Marked cellulitis is again seen with diffuse subcutaneous edema and skin thickening. Moderate to marked swelling of the foot is again noted. 2. Skin ulceration at the plantar aspect of the heel now measures 15 mm. No underlying fluid collection or abscess is seen. 3. No CT evidence for osteomyelitis. 4. Marked osteoarthritis. ACT 112: Negative or not required by law. Electronically signed by: Albaro Castillo M.D. 08/11/2021 3:22 PM Medications Administered Current Inpatient Medications Acetaminophen (Acetaminophen 325 Mg Tab) 650 mg PO Q4H PRN PRN Reason: Pain or Fever Stop: 09/10/21 21:22 Last Admin: 08/15/21 17:45 Dose: 650 mg Documented by: Atorvastatin Calcium (Atorvastatin 20 Mg Tab) 20 mg PO QPM [facility]IMEON Stop: 09/13/21 20:59 Last Admin: 08/15/21 20:21 Dose: 20 mg Documented by: Bisacodyl (Bisacodyl 10 Mg Supp) 10 mg VA DAILY PRN PRN Reason: Constipation Stop: 09/13/21 20:34 Dextrose (Dextrose 50% 50 Ml Syringe) 25 - 50 ml IV UD PRN; Protocol PRN Reason: Hypoglycemia Protocol Stop: 09/10/21 21:22 Diphenhydramine HCl (Diphenhydramine Capsule 25 Mg Cap) 25 mg PO Q8H PRN PRN Reason: Itching Stop: 09/13/21 20:34 Doxycycline Hyclate (Doxycycline Hyclate 100 Mg Cap) 100 mg PO BID@0700,1900 [facility]IMEON Stop: 08/19/21 06:59 Last Admin: 08/16/21 06:32 Dose: 100 mg Documented by: Ferrous Sulfate (Ferrous Sulfate 325 Mg Tab) 325 mg PO DAILY [facility]ON Stop: 09/11/21 08:59 Last Admin: 08/16/21 07:27 Dose: 325 mg Documented by: Glucagon (Glucagon For Inj 1 Mg Vial) 1 mg SQ UD PRN; Protocol PRN Reason: Hypoglycemia Protocol Stop: 09/10/21 21:22 Glucose (Glucose 10 Tabs/Tube) 4 - 8 tabs PO UD PRN; Protocol PRN Reason: Hypoglycemia Protocol Stop: 09/10/21 21:22 Glucose (Glucose 40% Gel 15 Gm Tube) 15 - 30 gm PO UD PRN; Protocol PRN Reason: Hypoglycemia Protocol Stop: 09/10/21 21:22 Heparin Sodium/Dextrose (Heparin Sodium/Dextrose) 25,000 units in 500 mls @ 32 mls/hr IV .[id number] [facility]; Protocol Stop: 09/11/21 17:29 Last Admin: 08/16/21 11:12 Dose: 1,600 units/hr, 32 mls/hr Documented by: Cefepime HCl 2,000 mg/ Syringe 20 mls @ 5 mls/min IV Q8H [facility]; Protocol Stop: 08/20/21 13:59 Last Admin: 08/16/21 11:07 Dose: 5 mls/min Documented by: Insulin Aspart (Insulin Aspart Per Unit) 0 units SC ACHS [facility] Stop: 09/10/21 21:22 Last Admin: 08/16/21 16:28 Dose: Not Given Documented by: Insulin Glargine (Insulin Glargine Solostar 100 Units/Ml 3 Ml Pen) 20 units SC BID [facility] Stop: 09/11/21 20:59 Last Admin: 08/16/21 09:23 Dose: 20 units Documented by: Lactic Acid (Ammonium Lactate 12% Lotion 225 Gm Btl) 1 gm EXT BID [facility] Stop: 09/10/21 21:44 Last Admin: 08/16/21 07:29 Dose: 1 gm Documented by: Lisinopril (Lisinopril 5 Mg Tab) 5 mg PO DAILY [facility] Stop: 09/11/21 08:59 Last Admin: 08/13/21 08:01 Dose: 5 mg Documented by: Magnesium Chloride (Magnesium Chloride 64mg Delayed Rel Tab) 64 mg PO DAILY [facility] Stop: 09/11/21 08:59 Last Admin: 08/16/21 07:25 Dose: 64 mg Documented by: Miconazole Nitrate (Miconazole Nitrate Powder 43 Gm) 1 appln EXT BID [facility] Stop: 09/10/21 21:44 Last Admin: 08/16/21 07:29 Dose: 1 appln Documented by: Miscellaneous (Carbohydrates For Hypoglycemia ) 15 - 30 gm PO UD PRN PRN Reason: Hypoglycemia Protocol Stop: 09/10/21 21:22 Last Admin: 08/12/21 07:45 Dose: 15 gm Documented by: Multivitamins (Multivitamin Tab) 1 tab PO QAM [facility] Stop: 09/14/21 08:59 Last Admin: 08/16/21 07:26 Dose: 1 tab Documented by: Multivitamins/Folic Acid/Vitamin C (Multivitamin Chewable Tab) 1 tab PO DAILY [facility] Stop: 09/11/21 08:59 Last Admin: 08/16/21 07:27 Dose: 1 tab Documented by: Ondansetron HCl (Ondansetron Inj 2 Mg/Ml 2 Ml Vial) 4 mg IV Q6H PRN PRN Reason: Nausea Stop: 09/10/21 21:22 Oxycodone HCl (Oxycodone Hcl Ir 5 Mg Tab (Immediate Release)) 5 mg PO Q6H PRN PRN Reason: Pain Stop: 08/30/21 01:43 Last Admin: 08/16/21 02:06 Dose: 5 mg Documented by: Pantoprazole Sodium (Pantoprazole 40 Mg Tab) 40 mg PO BID [facility] Stop: 09/10/21 21:44 Last Admin: 08/16/21 07:25 Dose: 40 mg Documented by: Polyethylene Glycol (Polyethylene (Miralax) 17 Gm Pack) 17 gm PO DAILY PRN PRN Reason: Constipation Stop: 09/10/21 21:22 Last Admin: 08/16/21 02:31 Dose: 17 gm Documented by: Potassium Chloride (Potassium Chloride 10 Meq Tabcr) 10 meq PO DAILY [facility] Stop: 09/11/21 08:59 Last Admin: 08/16/21 07:26 Dose: 10 meq Documented by: Sennosides (Senna 8.6 Mg Tab) 17.2 mg PO HS [facility] Stop: 09/13/21 20:59 Last Admin: 08/15/21 20:22 Dose: 17.2 mg Documented by: Warfarin Sodium (Warfarin Sod 3 Mg Tab) 3 mg PO DAILY@1600 [facility] Stop: 09/10/21 21:22 Last Admin: 08/16/21 16:20 Dose: 3 mg Documented by:
[2021-08-16] MEDS: ATORVASTATIN 20 MG TAB PO SCH (21:55)
[2021-08-16] MEDS: SENNA 8.6 MG TAB PO SCH (21:55)
[2021-08-16] MEDS: ACETAMINOPHEN 325 MG TAB PO PRN (22:06)
[2021-08-17] MEDS: HEPARIN SODIUM/DEXTROSE 25,000 UNITS/500 ML BAG IV SCH ×3 (04:09→08:31)
[2021-08-17] MEDS: DOXYCYCLINE HYCLATE 100 MG CAP PO SCH ×2 (05:56→17:59)
[2021-08-17] MEDS: AMMONIUM LACTATE 12% LOTION 225 GM BTL EXT SCH ×2 (05:56→20:55)
[2021-08-17] MEDS: CEFEPIME 2,000 MG in SYRINGE 0 ML IV SCH ×2 (05:56→17:56)
[2021-08-17] MEDS: ACETAMINOPHEN 325 MG TAB PO PRN (05:58)
[2021-08-17 07:26] LABS: Basophils # (auto) 0.02 K/uL (0-0.2); Basophils % (auto) 0.3 %; Eosinophils # (auto) 0.54 K/uL (0-0.5); Eosinophils % (auto) 8.9 %; Hematocrit (blood only) 26.2 % (37-47); Hemoglobin 7.7 g/dL (12.0-16.0); Immature Granulocytes # (auto) 0.01 K/uL (0.00-0.02); Immature Granulocytes % (auto) 0.2 %; Lymphocytes # (auto) 1.53 K/uL (1.2-3.4); Lymphocytes % (auto) 25.3 %; Mean Corpuscular Hemoglobin 28.2 pg (25-34); Mean Corpuscular Hgb Conc 29.4 g/dL (32-36); Mean Platelet Volume 8.8 fL (7.4-10.4); Monocytes # (auto) 0.44 K/uL (0.11-0.59); Monocytes % (auto) 7.3 %; Neutrophils # (auto) 3.51 K/uL (1.4-6.5); Platelet Count 320 K/uL (130-400); RDW Coefficient of Variation 15.2 % (11.5-14.5); RDW Standard Deviation 53.4 fL (36.4-46.3); Red Blood Count 2.73 M/uL (4.2-5.4); White Blood Count 6.05 K/uL (4.8-10.8)
[2021-08-17 07:46] LABS: BUN Creatinine Ratio 23.8 (10-20); Calcium 9.3 mg/dl (8.5-10.1); Est GFR (African American) 45.8 ml/min; Est GFR (Non-African American) 39.5 ml/min; Potassium 4.7 mmol/L (3.5-5.1); Rouleaux 1+
[2021-08-17 07:50] LABS: INR 1.7 (0.9-1.1); Partial Thromboplastin Ratio 2.8; Prothrombin Time 17.6 Seconds (9.0-12.0)
[2021-08-17 07:54] LABS: Partial Thromboplastin Time 76.6 Seconds (21.0-31.0)
[2021-08-17] MEDS: MULTIVITAMIN CHEWABLE TAB PO SCH (08:03)
[2021-08-17] MEDS: POTASSIUM CHLORIDE 10 MEQ TABCR PO SCH (08:03)
[2021-08-17] MEDS: MULTIVITAMIN TAB PO SCH (08:03)
[2021-08-17] MEDS: FERROUS SULFATE 325 MG TAB PO SCH (08:03)
[2021-08-17] MEDS: PANTOprazole 40 MG TAB PO SCH ×2 (08:03→20:57)
[2021-08-17] MEDS: MAGNESIUM CHLORIDE 64MG DELAYED REL TAB PO SCH (08:03)
[2021-08-17] MEDS: INSULIN GLARGINE SOLOSTAR 100 UNITS/ML 3 ML PEN SC SCH ×2 (08:05→20:56)
[2021-08-17] MEDS: MICONAZOLE NITRATE POWDER 43 GM EXT SCH ×2 (08:07→20:57)
[2021-08-17] MEDS: INSULIN ASPART PER UNIT SC SCH ×4 (08:30→20:58)
--- NOTE | 2021-08-17 12:02 | Hospitalist Progress Note ---
Date of Service August 17, 2021 Assessment & Plan (1) Foot ulcer, right: Plan: Patient is 75-year-old female with PMH KENAN, paroxysmal atrial fibrillation, DM II, HTN, HLD, diastolic CHF, GERD, pulmonary hypertension, chronic oxygen use 2- 3L, presented to ER with complaint of right heel drainage for couple of days. Pt had noted heel wound during recent hospitalization. Denies fever/chills, N/V In ER pt afebrile, vitals stable. No leukocytosis. Lactate WNL CT right foot: Marked cellulitis is again seen with diffuse subcutaneous edema and skin thickening. Moderate to marked swelling of the foot is again noted. Skin ulceration at the plantar aspect of the heel now measures 15 mm. No underlying fluid collection or abscess is seen. No CT evidence for osteomyelitis. In ER given Zosyn, daptomycin Blood cultures pendingOR cultures still preliminary Will continue Zosyn, daptomycincan likely discharge to rehabilitation soon Discussed with case management.If confusion evaluation is negativediscussed with nurse judicious use of oxycodone Wound nurse Confusionquestionable. CT of the head. MRI if CT head is negative. Unlikely CVA. However we will evaluate.Judicious use of oxycodonediscussed with nurse. Check a UA Lower extremity cellulitis Recent hospitalization was treated initially with Rocephin, changed to cefepime then can change to cefazolin if cultures remain negative finished 14-day course for BLE cellulitis up till August 25. Bilateral erythema markedly improved largely resolved Treat with antibiotics as above History PE/DVT Recently diagnosed with bilateral lower extremity DVT, PE on previous admission INR: 1.7 Continue Coumadin Patient on chronic oxygen supplementation at tonbebzs-5-4 L. continue INR in a.m. Hypomagnesemia Repleted History of GI bleed History of recent GI bleed secondary to gastric ulcer Continue PPI Anemia Anemia secondary to history of recent GI bleed. Hgb: 7.9. Was 8 on 08/07/2021 No reported melena, hematochezia, hematemesis, hematuria, epistaxis Monitor CKD III Cr: 1.2. Was 0.9 on 08/06/2021 Monitor renal functions, avoid nephrotoxic agents when possible DM II A1c: 12.1 on 07/24/21 Continue home Lantus NovoLog sliding scale per protocol Paroxysmal atrial fibrillation Not currently on beta-flores Is on Coumadin as above Chronic diastolic heart failure Appears euvolemic COPD No acute exacerbation noted KENAN Not use CPAP DVT Prophylaxis On Coumadin Full Code as per discussion with pt Follows with Dr Francisco for routine care Pt was seen and care coordinated with Dr Dinh. See addendum Admission and Anticipated Discharge Date Admission Date: August 11, 2021 Subjective POD #3 s/p Incision and Debridement of Diabetic Neuropathic Right Heel Ulcer 2cm x 1.5cm x 1.4cm, including skin, subcutaneous, periosteum.Cultures have remained negative thus far. However report from the surgical sample is preliminary. Eating breakfast when I walked in however noted to be slightly slowed today. Speaks clearly. Discussed about rehabilitation patient agrees. Nurse explained patient noted to be not finishing her sentences. Explained similar findings by the night nurse. Review of Systems Review of Systems: All systems reviewed and negative other than as described above in the history and physical Physical Exam Physical Exam: CONSTITUTIONAL: obese, vitals as above, generally well- appearing, NAD slightly slow in her speech today NECK: trachea midline RESPIRATORY: clear to auscultation bilaterally, no crackles, rales or wheezes, normal respiratory effort CARDIOVASCULAR: regular rate and rhythm, S1 and 2 heard without murmurs, gallops or rubs, no JVD, no peripheral edema CHEST: inspection of chest was normal GASTROINTESTINAL: soft, nontender, ND Other than obesity, no guarding MUSCULOSKELETAL: generalized weakness, Right lower extremity feet is wrappedcellulitis markedly resolved Results & Data Results & Data ([facility]) Vital Signs (Past 12 Hours) Vital Signs Temp Pulse Pulse Pulse Resp BP Pulse Ox 08/17/21 11:00 96 08/17/21 10:45 36.9 C 78 17 138/74 96 08/17/21 08:00 78 08/17/21 07:37 36.8 C 78 18 132/78 92 08/17/21 07:00 92 08/17/21 03:30 36.7 C 80 20 155/80 H 98 Laboratory Results Laboratory Results WBC 6.05 K/uL (4.8-10.8) 08/17/21 06:47 RBC 2.73 M/uL (4.2-5.4) L 08/17/21 06:47 Hgb 7.7 g/dL (12.0-16.0) L 08/17/21 06:47 Hct 26.2 % (37-47) L 08/17/21 06:47 MCV 96.0 fL (80-100) 08/17/21 06:47 MCH 28.2 pg (25-34) 08/17/21 06:47 MCHC 29.4 g/dL (32-36) L 08/17/21 06:47 RDW Std Deviation 53.4 fL (36.4-46.3) H 08/17/21 06:47 RDW Coeff of Jacqueline 15.2 % (11.5-14.5) H 08/17/21 06:47 Plt Count 320 K/uL (130-400) 08/17/21 06:47 MPV 8.8 fL (7.4-10.4) 08/17/21 06:47 Immature Gran % (Auto) 0.2 % 08/17/21 06:47 Neut % (Auto) 58.0 % 08/17/21 06:47 Lymph % (Auto) 25.3 % 08/17/21 06:47 [place] % (Auto) 7.3 % 08/17/21 06:47 Eos % (Auto) 8.9 % 08/17/21 06:47 Baso % (Auto) 0.3 % 08/17/21 06:47 Neut # (Auto) 3.51 K/uL (1.4-6.5) 08/17/21 06:47 Lymph # (Auto) 1.53 K/uL (1.2-3.4) 08/17/21 06:47 [place] # (Auto) 0.44 K/uL (0.11-0.59) 08/17/21 06:47 Eos # (Auto) 0.54 K/uL (0-0.5) H 08/17/21 06:47 Baso # (Auto) 0.02 K/uL (0-0.2) 08/17/21 06:47 Immature Gran # (Auto) 0.01 K/uL (0.00-0.02) 08/17/21 06:47 Polychromasia 1+ 08/15/21 05:14 Basophilic Stippling 1+ 08/15/21 05:14 Rouleaux 1+ 08/17/21 06:47 PT 17.6 Seconds (9.0-12.0) H 08/17/21 06:47 INR 1.7 (0.9-1.1) H 08/17/21 06:47 APTT 76.6 Seconds (21.0-31.0) H* 08/17/21 06:47 PTT Ratio 2.8 08/17/21 06:47 Sodium 139 mmol/L (136-145) 08/17/21 06:47 Potassium 4.7 mmol/L (3.5-5.1) 08/17/21 06:47 Chloride 99 mmol/L (98-107) 08/17/21 06:47 Carbon Dioxide 34 mmol/L (21-32) H 08/17/21 06:47 Anion Gap 6 (3-11) 08/17/21 06:47 BUN 31 mg/dl (6-23) H 08/17/21 06:47 Creatinine 1.30 mg/dl (0.6-1.2) H 08/17/21 06:47 Est Cr Clr Drug Dosing 51.0 ml/min 08/17/21 06:47 Est GFR ( Amer) 45.8 ml/min 08/17/21 06:47 Est GFR (Non-Af Amer) 39.5 ml/min 08/17/21 06:47 BUN/Creatinine Ratio 23.8 (10-20) H 08/17/21 06:47 Glucose 130 mg/dl (70-99(Fasting)) H 08/17/21 06:47 POC Glucose 291 mg/dl (70-99) H 08/17/21 11:31 Lactate 1.0 mmol/L (0.4-2.0) 08/11/21 15:15 Calcium 9.3 mg/dl (8.5-10.1) 08/17/21 06:47 Phosphorus 4.7 mg/dl (2.5-4.9) 08/12/21 07:00 Magnesium 1.8 mg/dl (1.7-2.4) 08/13/21 01:12 Total Bilirubin 0.8 mg/dl (0.2-1.0) 08/11/21 13:38 AST 27 U/L (13-39) 08/11/21 13:38 ALT 13 U/L (7-52) 08/11/21 13:38 Alkaline Phosphatase 65 U/L (34-104) 08/11/21 13:38 Total Protein 7.8 gm/dl (6.0-8.3) 08/11/21 13:38 Albumin 3.4 gm/dl (3.4-5.0) 08/11/21 13:38 Globulin 4.4 gm/dl (2.5-4.0) H 08/11/21 13:38 Albumin/Globulin Ratio 0.8 (0.9-2) L 08/11/21 13:38 Urine Color Yellow 08/11/21 23:57 Urine Appearance Cloudy (Clear) A 08/11/21 23:57 Urine pH 7.0 (4.5-7.5) 08/11/21 23:57 Ur Specific [place] 1.007 (1.000-1.030) 08/11/21 23:57 Urine Protein Negative (Negative) 08/11/21 23:57 Urine Glucose (UA) Negative (Negative) 08/11/21 23:57 Urine Ketones Negative (Negative) 08/11/21 23:57 Urine Blood 1+ (Negative) H 08/11/21 23:57 Urine Nitrite Negative (Negative) 08/11/21 23:57 Urine Bilirubin Negative (Negative) 08/11/21 23:57 Urine Urobilinogen Negative (Negative) 08/11/21 23:57 Ur Leukocyte Esterase 3+ (Negative) H 08/11/21 23:57 Urine WBC (Auto) >30 /hpf (0-5) H 08/11/21 23:57 Urine RBC (Auto) 0-4 /hpf (0-4) 08/11/21 23:57 U Hyaline Cast (Auto) 0 /lpf (0-5) 08/11/21 23:57 U Epithel Cells (Auto) 0-5 /lpf (0-5) 08/11/21 23:57 Urine Bacteria (Auto) Negative (Negative) 08/11/21 23:57 SARS-CoV-2, RNA, NAAT NEGATIVE (NEGATIVE) 08/11/21 15:[address] 08/11/21 14:14 CT foot RT wo con CLINICAL HISTORY: Right foot pain. poss osteo, foul odor, drainage COMPARISON STUDY: Previous CT from 07/25/2021 CT DOSE: TECHNIQUE: Standard CT of the is performed without IV contrast. Multiplanar reconstruction is performed. A dose lowering technique was utilized adhering to the principles of ALARA. FINDINGS: Bones: Compared to the previous examination, the bones are again osteopenic with no evidence for cortical destruction or CT evidence for osteomyelitis. There is no evidence for an acute fracture or dislocation. There is a small calcaneal spur at the origin of the plantar fascia. There is mild Achilles enthesopathy present. There are no lytic or blastic lesions. Joints: There is again moderate to marked joint space narrowing seen involving the intertarsal and tarsometatarsal joints. Mild to moderate joint space narrowing is present of the MTP joints and IP joints. 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 The bones are in anatomic alignment. Soft tissues: There is again marked diffuse cellulitis surrounding the ankle and foot with diffuse subcutaneous edema and skin thickening present. Soft tissue ulceration along the plantar aspect of the heel now measures 15 mm. No underlying abscess is seen. There are no focal fluid collections. IMPRESSION: 1. Marked cellulitis is again seen with diffuse subcutaneous edema and skin thickening. Moderate to marked swelling of the foot is again noted. 2. Skin ulceration at the plantar aspect of the heel now measures 15 mm. No underlying fluid collection or abscess is seen. 3. No CT evidence for osteomyelitis. 4. Marked osteoarthritis. ACT 112: Negative or not required by law. Electronically signed by: Albaro Castillo M.D. 08/11/2021 3:22 PM Medications Administered Current Inpatient Medications Acetaminophen (Acetaminophen 325 Mg Tab) 650 mg PO Q4H PRN PRN Reason: Pain or Fever Stop: 09/10/21 21:22 Last Admin: 08/17/21 05:58 Dose: 650 mg Documented by: Atorvastatin Calcium (Atorvastatin 20 Mg Tab) 20 mg PO QPM [facility] Stop: 09/13/21 20:59 Last Admin: 08/16/21 21:55 Dose: 20 mg Documented by: Bisacodyl (Bisacodyl 10 Mg Supp) 10 mg PA DAILY PRN PRN Reason: Constipation Stop: 09/13/21 20:34 Dextrose (Dextrose 50% 50 Ml Syringe) 25 - 50 ml IV UD PRN; Protocol PRN Reason: Hypoglycemia Protocol Stop: 09/10/21 21:22 Diphenhydramine HCl (Diphenhydramine Capsule 25 Mg Cap) 25 mg PO Q8H PRN PRN Reason: Itching Stop: 09/13/21 20:34 Doxycycline Hyclate (Doxycycline Hyclate 100 Mg Cap) 100 mg PO BID@0700,1900 [facility] Stop: 08/19/21 06:59 Last Admin: 08/17/21 05:56 Dose: 100 mg Documented by: Ferrous Sulfate (Ferrous Sulfate 325 Mg Tab) 325 mg PO DAILY [facility] Stop: 09/11/21 08:59 Last Admin: 08/17/21 08:03 Dose: 325 mg Documented by: Glucagon (Glucagon For Inj 1 Mg Vial) 1 mg SQ UD PRN; Protocol PRN Reason: Hypoglycemia Protocol Stop: 09/10/21 21:22 Glucose (Glucose 10 Tabs/Tube) 4 - 8 tabs PO UD PRN; Protocol PRN Reason: Hypoglycemia Protocol Stop: 09/10/21 21:22 Glucose (Glucose 40% Gel 15 Gm Tube) 15 - 30 gm PO UD PRN; Protocol PRN Reason: Hypoglycemia Protocol Stop: 09/10/21 21:22 Heparin Sodium/Dextrose (Heparin Sodium/Dextrose) 25,000 units in 500 mls @ 30 mls/hr IV .[id number] [facility]; Protocol Stop: 09/11/21 17:29 Last Admin: 08/17/21 08:31 Dose: 1,500 units/hr, 30 mls/hr Documented by: Cefepime HCl 2,000 mg/ Syringe 20 mls @ 5 mls/min IV Q8H [facility]; Protocol Stop: 08/20/21 13:59 Last Admin: 08/17/21 05:56 Dose: 5 mls/min Documented by: Insulin Aspart (Insulin Aspart Per Unit) 0 units SC ACHS [facility] Stop: 09/10/21 21:22 Last Admin: 08/17/21 08:30 Dose: 14 units Documented by: Insulin Glargine (Insulin Glargine Solostar 100 Units/Ml 3 Ml Pen) 20 units SC BID [facility] Stop: 09/11/21 20:59 Last Admin: 08/17/21 08:05 Dose: 20 units Documented by: Lactic Acid (Ammonium Lactate 12% Lotion 225 Gm Btl) 1 gm EXT BID [facility] Stop: 09/10/21 21:44 Last Admin: 08/17/21 05:56 Dose: 1 gm Documented by: Lisinopril (Lisinopril 5 Mg Tab) 5 mg PO DAILY [facility] Stop: 09/11/21 08:59 Last Admin: 08/13/21 08:01 Dose: 5 mg Documented by: Magnesium Chloride (Magnesium Chloride 64mg Delayed Rel Tab) 64 mg PO DAILY [facility] Stop: 09/11/21 08:59 Last Admin: 08/17/21 08:03 Dose: 64 mg Documented by: Miconazole Nitrate (Miconazole Nitrate Powder 43 Gm) 1 appln EXT BID [facility] Stop: 09/10/21 21:44 Last Admin: 08/17/21 08:07 Dose: 1 appln Documented by: Miscellaneous (Carbohydrates For Hypoglycemia ) 15 - 30 gm PO UD PRN PRN Reason: Hypoglycemia Protocol Stop: 09/10/21 21:22 Last Admin: 08/12/21 07:45 Dose: 15 gm Documented by: Multivitamins (Multivitamin Tab) 1 tab PO QAM [facility] Stop: 09/14/21 08:59 Last Admin: 08/17/21 08:03 Dose: 1 tab Documented by: Multivitamins/Folic Acid/Vitamin C (Multivitamin Chewable Tab) 1 tab PO DAILY [facility] Stop: 09/11/21 08:59 Last Admin: 08/17/21 08:03 Dose: 1 tab Documented by: Ondansetron HCl (Ondansetron Inj 2 Mg/Ml 2 Ml Vial) 4 mg IV Q6H PRN PRN Reason: Nausea Stop: 09/10/21 21:22 Oxycodone HCl (Oxycodone Hcl Ir 5 Mg Tab (Immediate Release)) 5 mg PO Q6H PRN PRN Reason: Pain Stop: 08/30/21 01:43 Last Admin: 08/16/21 02:06 Dose: 5 mg Documented by: Pantoprazole Sodium (Pantoprazole 40 Mg Tab) 40 mg PO BID [facility] Stop: 09/10/21 21:44 Last Admin: 08/17/21 08:03 Dose: 40 mg Documented by: Polyethylene Glycol (Polyethylene (Miralax) 17 Gm Pack) 17 gm PO DAILY PRN PRN Reason: Constipation Stop: 09/10/21 21:22 Last Admin: 08/16/21 02:31 Dose: 17 gm Documented by: Potassium Chloride (Potassium Chloride 10 Meq Tabcr) 10 meq PO DAILY [facility] Stop: 09/11/21 08:59 Last Admin: 08/17/21 08:03 Dose: 10 meq Documented by: Sennosides (Senna 8.6 Mg Tab) 17.2 mg PO [facility] Stop: 09/13/21 20:59 Last Admin: 08/16/21 21:55 Dose: 17.2 mg Documented by: Warfarin Sodium (Warfarin Sod 3 Mg Tab) 3 mg PO DAILY@1600 [facility] Stop: 09/10/21 21:22 Last Admin: 08/16/21 16:20 Dose: 3 mg Documented by:
--- NOTE | 2021-08-17 14:00 | CT Scan Report ---
HEAD CT NONCONTRAST CT DOSE: 1246.96 mGy.cm HISTORY: Confusion TECHNIQUE: Multiaxial CT images of the head were performed without the use of intravenous contrast. A utomated exposure control was utilized for this study. A dose lowering technique was utilized adheri ng to the principles of ALARA. Comparison: Head CT 07/30/2021. Findings: The paranasal sinuses and mastoid air cells are clear. The calvarium and skull base are int act. There is no mass, hematoma, midline shift, acute infarct. White matter hypodensity is nonspecifi c but suggestive of microvascular ischemic change. The ventricles and sulci demonstrate mild age-rela alcides involutional changes. Mild motion artifact. Impression: No significant change compared to the prior study. No acute intracranial abnormality. ACT 112: Negative or not required by law. Electronically signed by: Reinaldo Adams M.D. 08/17/2021 1:58 PM
[2021-08-17 15:00] LABS: Partial Thromboplastin Ratio 2.3
[2021-08-17 15:21] LABS: Partial Thromboplastin Time 62.3 Seconds (21.0-31.0)
[2021-08-17 15:58] LABS: Appearance Urine Clear (Clear); Bilirubin Urine Negative (Negative); Blood Urine Negative (Negative); Color Urine Yellow; Glucose Urine UA 2+ (Negative); Ketones Urine Negative (Negative); Leukocyte Esterase Urine Negative (Negative); Nitrite Urine Negative (Negative); Protein Urine 1+ (Negative); Specific Gravity Urine 1.015 (1.000-1.030); Urobilinogen Urine Negative (Negative); pH Urine 5.5 (4.5-7.5)
[2021-08-17 16:21] LABS: Bacteria Urine Negative (Negative); Epithelial Cell Urine >30 /lpf (0-5); RBC Urine 0-4 /hpf (0-4); WBC Urine 0-5 /hpf (0-5)
[2021-08-17] MEDS: WARFARIN SOD 3 MG TAB PO SCH (16:28)
--- NOTE | 2021-08-17 16:54 | Orthopedic Progress Note ---
Date of Service August 17, 2021 Assessment & Plan (1) Foot ulcer, right: Plan: POD #3 s/p I&D of Diabetic Neuropathic Right Heel Ulcer 2cm x 1.5cm x 1.4cm, including skin, subcutaneous, periosteum dressing changed this am, 6-7 inches of packing pulled. will cont to pull packing daily. cont to RICE NWB on the right heel she has resumed her anticoagulants. recommend continuation of her Abx as per medicine, ID consult Wound nursing consult placed for evaluation of wound VAC versus continued daily dressing changes. Orthopedics to sign off at this time. We will evaluate her at any time that is necessary. She will follow-up with Dr. Yung's clinic approximately 1 week after discharge. Admission and Anticipated Discharge Date Admission Date: August 11, 2021 Subjective No complaints of the right foot today. However, the patient appears to be pleasantly confused. RN present during dressing change. Physical Exam Constitutional: no acute distress ENMT: external ear and nose normal, oropharynx normal Neck: trachea midline Musculoskeletal: Right foot: No erythema surrounding the plantar heel ulceration. All sutures remain intact. There is approximately 1.5 feet of packing that was removed from the wound. The wound measures approximately 5 mm in diameter. Mild bloody drainage. No purulence. Psychiatric: Orientation: alert and cooperative; + not oriented to place and + not oriented to time Results & Data ([facility]) Vital Signs (Past 12 Hours) Vital Signs Temp Pulse Pulse Pulse Resp BP Pulse Ox 08/17/21 15:55 83 08/17/21 14:22 36.7 C 77 19 101/63 95 08/17/21 11:00 96 08/17/21 10:45 36.9 C 78 17 138/74 96 08/17/21 08:00 78 08/17/21 07:37 36.8 C 78 18 132/78 92 08/17/21 07:00 92
--- NOTE | 2021-08-17 20:24 | Magnetic Resonance Report ---
MRI OF THE BRAIN WITHOUT IV CONTRAST CLINICAL HISTORY: Change in mental status. COMPARISON STUDY: CT of the brain dated 08/17/2021. TECHNIQUE: MRI of the brain was performed utilizing various T1 and T2-weighted sequences in the axial , sagittal, and coronal planes. IV contrast was not administered for this examination. FINDINGS: Brain parenchyma: There is age-related involutional change noting mild subcortical and periventricula r microangiopathic disease. There is no hemorrhage or mass effect. There is no restricted diffusion t o suggest acute ischemia. Ribera-white matter differentiation is preserved. No extra-axial fluid collec tion is seen. The cerebellar tonsils are normal in configuration. Mineralization is noted in the basa l ganglia. Ventricles, sulci, and cisterns: Prominent secondary to involutional change. Pituitary and sella: Unremarkable. Intracranial vasculature: Normal flow voids are maintained at the skull base. Orbits: The bony orbits are grossly intact. Orbital contents are normal in appearance. Sinuses and mastoids: There is mild mucosal thickening within the right ethmoid sinuses. The remainin g paranasal sinuses are clear, as are the mastoid air cells. Calvarium: Unremarkable. Cervical cord: Partially visualized cervical spinal cord is normal in morphology and signal intensity . IMPRESSION: No acute intracranial abnormality. ACT 112: Negative or not required by law. Electronically signed by: Glenn Hudson M.D. 08/17/2021 8:22 PM
[2021-08-17] MEDS: SENNA 8.6 MG TAB PO SCH (20:57)
[2021-08-17] MEDS: ATORVASTATIN 20 MG TAB PO SCH (20:58)
[2021-08-18] MEDS: HEPARIN SODIUM/DEXTROSE 25,000 UNITS/500 ML BAG IV SCH ×5 (00:04→16:50)
[2021-08-18] MEDS: DOXYCYCLINE HYCLATE 100 MG CAP PO SCH (06:28)
[2021-08-18] MEDS: CEFEPIME 2,000 MG in SYRINGE 0 ML IV SCH (06:28)
[2021-08-18 08:33] LABS: BUN Creatinine Ratio 30.6 (10-20); Calcium 9.2 mg/dl (8.5-10.1); Creatinine Clr Calc Pharmacy 61.2 ml/min; Est GFR (African American) 57.3 ml/min; Est GFR (Non-African American) 49.5 ml/min; Potassium 4.5 mmol/L (3.5-5.1)
[2021-08-18 08:43] LABS: INR 1.6 (0.9-1.1); Partial Thromboplastin Ratio 2.4; Prothrombin Time 17.1 Seconds (9.0-12.0)
[2021-08-18 08:48] LABS: Partial Thromboplastin Time 64.7 Seconds (21.0-31.0)
[2021-08-18] MEDS: MAGNESIUM CHLORIDE 64MG DELAYED REL TAB PO SCH (08:56)
[2021-08-18] MEDS: MULTIVITAMIN TAB PO SCH (08:56)
[2021-08-18] MEDS: PANTOprazole 40 MG TAB PO SCH ×2 (08:56→21:03)
[2021-08-18] MEDS: POTASSIUM CHLORIDE 10 MEQ TABCR PO SCH (08:56)
[2021-08-18] MEDS: MULTIVITAMIN CHEWABLE TAB PO SCH (08:56)
[2021-08-18] MEDS: FERROUS SULFATE 325 MG TAB PO SCH (08:56)
[2021-08-18] MEDS: INSULIN GLARGINE SOLOSTAR 100 UNITS/ML 3 ML PEN SC SCH ×2 (08:57→21:00)
[2021-08-18] MEDS: AMMONIUM LACTATE 12% LOTION 225 GM BTL EXT SCH ×2 (08:57→20:59)
[2021-08-18] MEDS: AMOXICILLIN/CLAVULANATE 875 MG TAB PO SCH ×2 (09:11→20:59)
[2021-08-18] MEDS: INSULIN ASPART PER UNIT SC SCH ×4 (09:11→21:00)
[2021-08-18] MEDS: MICONAZOLE NITRATE POWDER 43 GM EXT SCH ×2 (09:12→21:02)
[2021-08-18] MEDS: ACETAMINOPHEN 325 MG TAB PO PRN (12:41)
--- NOTE | 2021-08-18 15:11 | Hospitalist Progress Note ---
Date of Service August 18, 2021 Assessment & Plan (1) Foot ulcer, right: Plan: Patient is 75-year-old female with PMH KENAN, paroxysmal atrial fibrillation, DM II, HTN, HLD, diastolic CHF, GERD, pulmonary hypertension, chronic oxygen use 2- 3L, presented to ER with complaint of right heel drainage for couple of days. Pt had noted heel wound during recent hospitalization. Denies fever/chills, N/V R heel diabetic neuropathic ulcer In ER pt afebrile, vitals stable. No leukocytosis. Lactate WNL CT right foot: Marked cellulitis is again seen with diffuse subcutaneous edema and skin thickening. Moderate to marked swelling of the foot is again noted. Skin ulceration at the plantar aspect of the heel now measures 15 mm. No underlying fluid collection or abscess is seen. No CT evidence for osteomyelitis. In ER given Zosyn, daptomycin Continued on cefepime since 08/12 Blood cultures negative. Wound cultures now growing B fragilis. Wound nurse following-no wound vac can be placed because of stitches. Ortho signed off-post op followup as instructed in office. Encephalopathy x [address] of the head negative. Brain MRI is negative. Unlikely CVA and patient not demonstrating focality on exam. UA from this adm ission growing GNB. Pt has been on cefepime until today which is sknown to cause encephalopathy as a side effect. The switch of abx away from this may help to improve her mental status. If no improvement, consider neurology consultation. Lower extremity cellulitis Recent hospitalization was treated initially with Rocephin, changed to cefepime then can change to cefazolin if cultures remain negative finished 14-day course for BLE cellulitis up till August 25. Bilateral erythema markedly improved largely resolved Treat with antibiotics as above History PE/DVT Recently diagnosed with bilateral lower extremity DVT, PE on previous admission INR still subtherapeutic, increase coumadin to 5mg daily. Patient on chronic oxygen supplementation at ckbufxgn-2-2 L. continue Trend daily INR. History of GI bleed History of recent GI bleed secondary to gastric ulcer Continue PPI Anemia Anemia secondary to history of recent GI bleed. Hgb: 7.9. Was 8 on 08/07/2021 No reported melena, hematochezia, hematemesis, hematuria, epistaxis Monitor CKD III Cr: 1.2. Was 0.9 on 08/06/2021 Monitor renal functions, avoid nephrotoxic agents when possible DM II A1c: 12.1 on 07/24/21 Continue home Lantus NovoLog sliding scale per protocol Paroxysmal atrial fibrillation Not currently on beta-flores Is on Coumadin as above Chronic diastolic heart failure Appears euvolemic COPD No acute exacerbation noted KENAN Not use CPAP DVT Prophylaxis On Coumadin Full Code Dispo-to rehab when encephalopathy improves Sirena Oliveira DO [facility] Hospitalist (2) Encephalopathy: Admission and Anticipated Discharge Date Admission Date: August 11, 2021 Subjective 75 unconrolled diabetic presents with neuropathic right heel ulcer with drainage. POD #4 s/p Incision and Debridement of Diabetic Neuropathic Right Heel Ulcer 2cm x 1.5cm x 1.4cm, including skin, subcutaneous, periosteum.Cultures have remained negative thus far. However report from the surgical sample is preliminary. Wound Cultures grew B. frag-cefepime changed to Augmentin this am Brain MRI reviewed and unremarkable She is still having some difficulty finishing her sentences and cannot tell me why she is here and doesn't know the date She appears somewhat frustrated with the questioning. Nonfocal in appearance Pain is well controlled in heel Review of Systems Review of Systems: All systems were reviewed and negative except as indicated on subjective above. Physical Exam Physical Exam: CONSTITUTIONAL: obese, vitals as above, generally well- appearing, NAD EYES: normal conjunctivae, no scleral icterus ENT: external ear and nose normal, MMM NECK: trachea midline RESPIRATORY: clear to auscultation bilaterally, no crackles, rales or wheezes, normal respiratory effort CARDIOVASCULAR: regular rate and rhythm, S1 and 2 heard without murmurs, gallops or rubs, no JVD, no peripheral edema CHEST: inspection of chest was normal GASTROINTESTINAL: soft, nontender, ND, no guarding MUSCULOSKELETAL: generalized weakness, unable to sit up in bed without assistance, head is normocephalic and atraumatic SKIN: warm and dry, no rashes NEUROLOGIC: CN 2-12 grossly intact, normal cognition, normal speech, no tremor. No PSYCHIATRIC: alert cooperative and oriented to person only. Speaking in full sentences and otherwise able to converse. Results & Data Results & Data ([facility]) Vital Signs (Past 12 Hours) Vital Signs Temp Pulse Pulse Resp BP Pulse Ox 08/18/21 11:24 36.9 C 85 20 112/73 95 04/05/22 08:00 36.8 C 82 73 20 141/83 H 98 08/18/21 07:32 79 08/18/21 04:00 36.8 C 73 18 122/76 92 Laboratory Results BMP 08/18/21 07:25 Sodium 139 Potassium 4.5 Chloride 101 Carbon Dioxide 36 H BUN 33 H Creatinine 1.08 Glucose 123 H Calcium 9.2 Urine 08/17/21 Range/Units Unknown Urine Color Yellow Urine Appearance Clear (Clear) Urine pH 5.5 (4.5-7.5) Ur Specific [place] 1.015 (1.000-1.030) Urine Protein 1+ H (Negative) Urine Glucose (UA) 2+ H (Negative) Medications Administered Current Inpatient Medications Acetaminophen (Acetaminophen 325 Mg Tab) 650 mg PO Q4H PRN PRN Reason: Pain or Fever Stop: 09/10/21 21:22 Last Admin: 08/18/21 12:41 Dose: 650 mg Documented by: Amoxicillin/Clavulanate Potassium (Amoxicillin/Clavulanate 875 Mg Tab) 1 tab PO BID SIMEON; Protocol Stop: 08/25/21 08:59 Last Admin: 08/18/21 09:11 Dose: 1 tab Documented by: Atorvastatin Calcium (Atorvastatin 20 Mg Tab) 20 mg PO QPM [facility] Stop: 09/13/21 20:59 Last Admin: 08/17/21 20:58 Dose: 20 mg Documented by: Bisacodyl (Bisacodyl 10 Mg Supp) 10 mg NM DAILY PRN PRN Reason: Constipation Stop: 09/13/21 20:34 Dextrose (Dextrose 50% 50 Ml Syringe) 25 - 50 ml IV UD PRN; Protocol PRN Reason: Hypoglycemia Protocol Stop: 09/10/21 21:22 Diphenhydramine HCl (Diphenhydramine Capsule 25 Mg Cap) 25 mg PO Q8H PRN PRN Reason: Itching Stop: 09/13/21 20:34 Ferrous Sulfate (Ferrous Sulfate 325 Mg Tab) 325 mg PO DAILY [facility] Stop: 09/11/21 08:59 Last Admin: 08/18/21 08:56 Dose: 325 mg Documented by: Glucagon (Glucagon For Inj 1 Mg Vial) 1 mg SQ UD PRN; Protocol PRN Reason: Hypoglycemia Protocol Stop: 09/10/21 21:22 Glucose (Glucose 10 Tabs/Tube) 4 - 8 tabs PO UD PRN; Protocol PRN Reason: Hypoglycemia Protocol Stop: 09/10/21 21:22 Glucose (Glucose 40% Gel 15 Gm Tube) 15 - 30 gm PO UD PRN; Protocol PRN Reason: Hypoglycemia Protocol Stop: 09/10/21 21:22 Heparin Sodium/Dextrose (Heparin Sodium/Dextrose) 25,000 units in 500 mls @ 30 mls/hr IV .[id number] [facility]; Protocol Stop: 09/11/21 17:29 Last Admin: 08/18/21 10:13 Dose: Not Given Documented by: Insulin Aspart (Insulin Aspart Per Unit) 0 units SC ACHS [facility] Stop: 09/10/21 21:22 Last Admin: 08/18/21 12:31 Dose: 18 units Documented by: Insulin Glargine (Insulin Glargine Solostar 100 Units/Ml 3 Ml Pen) 20 units SC BID [facility] Stop: 09/11/21 20:59 Last Admin: 08/18/21 08:57 Dose: 20 units Documented by: Lactic Acid (Ammonium Lactate 12% Lotion 225 Gm Btl) 1 gm EXT BID [facility] Stop: 09/10/21 21:44 Last Admin: 08/18/21 08:57 Dose: 1 gm Documented by: Lisinopril (Lisinopril 5 Mg Tab) 5 mg PO DAILY [facility] Stop: 09/11/21 08:59 Last Admin: 08/13/21 08:01 Dose: 5 mg Documented by: Magnesium Chloride (Magnesium Chloride 64mg Delayed Rel Tab) 64 mg PO DAILY [facility] Stop: 09/11/21 08:59 Last Admin: 08/18/21 08:56 Dose: 64 mg Documented by: Miconazole Nitrate (Miconazole Nitrate Powder 43 Gm) 1 appln EXT BID [facility] Stop: 09/10/21 21:44 Last Admin: 08/18/21 09:12 Dose: 1 appln Documented by: Miscellaneous (Carbohydrates For Hypoglycemia ) 15 - 30 gm PO UD PRN PRN Reason: Hypoglycemia Protocol Stop: 09/10/21 21:22 Last Admin: 08/12/21 07:45 Dose: 15 gm Documented by: Multivitamins (Multivitamin Tab) 1 tab PO QAM [facility] Stop: 09/14/21 08:59 Last Admin: 08/18/21 08:56 Dose: 1 tab Documented by: Multivitamins/Folic Acid/Vitamin C (Multivitamin Chewable Tab) 1 tab PO DAILY SIMOEN Stop: 09/11/21 08:59 Last Admin: 08/18/21 08:56 Dose: 1 tab Documented by: Ondansetron HCl (Ondansetron Inj 2 Mg/Ml 2 Ml Vial) 4 mg IV Q6H PRN PRN Reason: Nausea Stop: 09/10/21 21:22 Oxycodone HCl (Oxycodone Hcl Ir 5 Mg Tab (Immediate Release)) 5 mg PO Q6H PRN PRN Reason: Pain Stop: 08/30/21 01:43 Last Admin: 08/16/21 02:06 Dose: 5 mg Documented by: Pantoprazole Sodium (Pantoprazole 40 Mg Tab) 40 mg PO BID [facility] Stop: 09/10/21 21:44 Last Admin: 08/18/21 08:56 Dose: 40 mg Documented by: Polyethylene Glycol (Polyethylene (Miralax) 17 Gm Pack) 17 gm PO DAILY PRN PRN Reason: Constipation Stop: 09/10/21 21:22 Last Admin: 08/16/21 02:31 Dose: 17 gm Documented by: Potassium Chloride (Potassium Chloride 10 Meq Tabcr) 10 meq PO DAILY SIMEON Stop: 09/11/21 08:59 Last Admin: 08/18/21 08:56 Dose: 10 meq Documented by: Sennosides (Senna 8.6 Mg Tab) 17.2 mg PO HS [facility] Stop: 09/13/21 20:59 Last Admin: 08/17/21 20:57 Dose: 17.2 mg Documented by: Warfarin Sodium (Warfarin Sod 3 Mg Tab) 3 mg PO DAILY@1600 SIMEON Stop: 09/10/21 21:22 Last Admin: 08/17/21 16:28 Dose: 3 mg Documented by:
[2021-08-18] MEDS: WARFARIN SOD 3 MG TAB PO SCH (17:18)
[2021-08-18] MEDS: ATORVASTATIN 20 MG TAB PO SCH (20:59)
[2021-08-18] MEDS: SENNA 8.6 MG TAB PO SCH (21:03)
[2021-08-19 07:15] LABS: Basophils # (auto) 0.01 K/uL (0-0.2); Basophils % (auto) 0.2 %; Eosinophils # (auto) 0.52 K/uL (0-0.5); Eosinophils % (auto) 8.2 %; Hematocrit (blood only) 28.5 % (37-47); Hemoglobin 8.3 g/dL (12.0-16.0); Immature Granulocytes # (auto) 0.02 K/uL (0.00-0.02); Immature Granulocytes % (auto) 0.3 %; Lymphocytes # (auto) 1.37 K/uL (1.2-3.4); Lymphocytes % (auto) 21.5 %; Mean Corpuscular Hemoglobin 28.2 pg (25-34); Mean Corpuscular Hgb Conc 29.1 g/dL (32-36); Mean Corpuscular Volume 96.9 fL (80-100); Mean Platelet Volume 8.8 fL (7.4-10.4); Monocytes # (auto) 0.41 K/uL (0.11-0.59); Monocytes % (auto) 6.4 %; Neutrophils # (auto) 4.05 K/uL (1.4-6.5); Neutrophils % (auto) 63.4 %; Platelet Count 369 K/uL (130-400); RDW Coefficient of Variation 15.5 % (11.5-14.5); RDW Standard Deviation 54.9 fL (36.4-46.3); Red Blood Count 2.94 M/uL (4.2-5.4); White Blood Count 6.38 K/uL (4.8-10.8)
[2021-08-19 07:40] LABS: INR 1.6 (0.9-1.1); Partial Thromboplastin Ratio 2.3; Prothrombin Time 16.2 Seconds (9.0-12.0)
[2021-08-19 07:50] LABS: Partial Thromboplastin Time 62.5 Seconds (21.0-31.0)
[2021-08-19] MEDS: INSULIN GLARGINE SOLOSTAR 100 UNITS/ML 3 ML PEN SC SCH ×2 (08:19→20:18)
[2021-08-19] MEDS: AMMONIUM LACTATE 12% LOTION 225 GM BTL EXT SCH ×2 (08:19→20:13)
[2021-08-19] MEDS: INSULIN ASPART PER UNIT SC SCH ×4 (08:19→20:07)
[2021-08-19] MEDS: MULTIVITAMIN CHEWABLE TAB PO SCH (08:20)
[2021-08-19] MEDS: FERROUS SULFATE 325 MG TAB PO SCH (08:20)
[2021-08-19] MEDS: PANTOprazole 40 MG TAB PO SCH ×2 (08:20→20:17)
[2021-08-19] MEDS: MAGNESIUM CHLORIDE 64MG DELAYED REL TAB PO SCH (08:20)
[2021-08-19] MEDS: POTASSIUM CHLORIDE 10 MEQ TABCR PO SCH (08:20)
[2021-08-19] MEDS: MULTIVITAMIN TAB PO SCH (08:20)
[2021-08-19] MEDS: AMOXICILLIN/CLAVULANATE 875 MG TAB PO SCH ×2 (08:20→20:15)
[2021-08-19] MEDS: MICONAZOLE NITRATE POWDER 43 GM EXT SCH ×2 (08:21→20:16)
[2021-08-19] MEDS: HEPARIN SODIUM/DEXTROSE 25,000 UNITS/500 ML BAG IV SCH (09:31)
--- NOTE | 2021-08-19 15:07 | Hospitalist Progress Note ---
Date of Service August 19, 2021 Assessment & Plan (1) Foot ulcer, right: Plan: 75-year-old female with PMH KENAN, paroxysmal atrial fibrillation, DM II, HTN, HLD, diastolic CHF, GERD, pulmonary hypertension, chronic oxygen use 2-3L, presented to ER 08/11 with complaint of right heel drainage for couple of days. She is being managed for the following: #. R heel diabetic neuropathic ulcer In ER pt afebrile, vitals stable. No leukocytosis. Lactate WNL CT right foot: Marked cellulitis is again seen with diffuse subcutaneous edema and skin thickening. Moderate to marked swelling of the foot is again noted. Skin ulceration at the plantar aspect of the heel now measures 15 mm. No underlying fluid collection or abscess is seen. No CT evidence for osteomyelitis. In ER given Zosyn, daptomycin s/p I&D of Diabetic Neuropathic Right Heel Ulcer 2cm x 1.5cm x 1.4cm, including skin, subcutaneous, periosteum 08/14 Continued on cefepime since 08/12 --> changed to Augmentin 08/18 d/t concerns of cefepime induced encephalopathy ID has recommended Zosyn and Dapto; with Cultures update, reached out to ID (Dr. Alarcon), awaiting reply for further recs on antibiotic and duration. 08/11 Blood cultures negative. 08/14 Wound cultures growing B fragilis. Wound nurse following-no wound vac can be placed because of stitches. Ortho signed off-post op followup as instructed in office. #. Encephalopathy x 2 days. Resolved 08/19, AOx4 at bedside exam. CT head and MRI brain negative. Likely cefepime induced vs hospital induced. continue to monitor. #. Lower extremity cellulitis Recent hospitalization was treated initially with Rocephin, changed to cefepime then to Augmentin as cultures remained negative to finish 14-day course for BLE cellulitis up till August 25. Bilateral erythema markedly improved largely resolved Treat with antibiotics as above. #. History PE/DVT Recently diagnosed with bilateral lower extremity DVT, PE on previous admission INR still subtherapeutic, increased coumadin to 5mg daily. Patient on chronic oxygen supplementation at fxranteu-5-5 L. continue Trend daily INR. #. History of GI bleed History of recent GI bleed secondary to gastric ulcer Continue PPI #. Anemia Anemia secondary to history of recent GI bleed. Hgb: 7.9. Was 8 on 08/07/2021 No reported melena, hematochezia, hematemesis, hematuria, epistaxis Monitor #. Other chronic medical conditions: CKD stage III, DM2, paroxysmal A. fib, chronic diastolic heart failure, COPD, KENAN Continue/resume with home medications as and when appropriate Continue sliding scale insulin #. DVT Prophylaxis: On Coumadin Full Code Dispo-to rehab [facility] tomorrow if no new issues arise and w/ ID recs. (2) Encephalopathy: Admission and Anticipated Discharge Date Admission Date: August 11, 2021 Subjective Patient seen and examined at bedside as a follow-up of right heel diabetic neuropathic ulcer status post incision and debridement this admission and lower extremity cellulitis. Patient lying in bed, on 2 L nasal cannula oxygen, NAD, no new acute events overnight. Patient is alert and oriented x4. Patient reports eating and moving bowels okay. Patient denies any fever/headache/chills/chest pain/palpitations/belly pain/other review of symptoms. Physical Exam Physical Exam: GENERAL: Alert and oriented x3. NAD, on 2L. HEENT: No pallor, no icterus. Pupils equal, round and reactive to light. Oral mucosa moist. NECK: No JVD, no neck masses. HEART: S1 and S2 heard. Regular rate and rhythm. No murmur, no gallop. RESPIRATORY SYSTEM: Normal AP diameter. No accessory muscle use. No wheezing, no crackles. ABDOMEN: Soft, bowel sounds present, nontender, no distention. CENTRAL NERVOUS SYSTEM: No facial droop. Speech is clear. Obeys simple commands. Moves extremities. EXTREMITIES: 1+ BLE edema, chronic BLE lymphedema noted, BLE chronic skin changes noted. RLE heel dressing noted without soakage. Results & Data Results & Data ([facility]) Vital Signs (Past 12 Hours) Vital Signs Temp Pulse Pulse Resp BP BP Pulse Ox 08/19/21 14:33 37.1 C 77 20 129/68 97 08/19/21 11:24 36.6 C 74 20 133/74 98 08/19/21 07:22 37.2 C 74 20 150/73 H 95 08/19/21 07:05 79
[2021-08-19] MEDS: WARFARIN SOD 5 MG TAB PO SCH (17:11)
[2021-08-19] MEDS: ACETAMINOPHEN 325 MG TAB PO PRN (20:11)
[2021-08-19] MEDS: ATORVASTATIN 20 MG TAB PO SCH (20:15)
[2021-08-19] MEDS: SENNA 8.6 MG TAB PO SCH (20:16)
[2021-08-20] MEDS: HEPARIN SODIUM/DEXTROSE 25,000 UNITS/500 ML BAG IV SCH ×4 (02:03→17:24)
[2021-08-20 07:26] LABS: Hematocrit (blood only) 28.4 % (37-47); Hemoglobin 8.4 g/dL (12.0-16.0); Mean Corpuscular Hemoglobin 28.8 pg (25-34); Mean Corpuscular Hgb Conc 29.6 g/dL (32-36); Mean Corpuscular Volume 97.3 fL (80-100); Mean Platelet Volume 8.9 fL (7.4-10.4); Nucleated RBC # (auto) 0.02 K/uL (0-0); Nucleated RBC % (auto) 0.4 %; Platelet Count 381 K/uL (130-400); RDW Coefficient of Variation 15.8 % (11.5-14.5); RDW Standard Deviation 55.2 fL (36.4-46.3); Red Blood Count 2.92 M/uL (4.2-5.4); White Blood Count 5.51 K/uL (4.8-10.8)
[2021-08-20 07:37] LABS: BUN Creatinine Ratio 34.6 (10-20); Creatinine Clr Calc Pharmacy 60.9 ml/min; Magnesium 1.1 mg/dl (1.7-2.4); Phosphorus 3.3 mg/dl (2.5-4.9); Potassium 4.6 mmol/L (3.5-5.1)
[2021-08-20 08:00] LABS: INR 2.1 (0.9-1.1); Partial Thromboplastin Ratio 2.7; Prothrombin Time 21.4 Seconds (9.0-12.0)
[2021-08-20] MEDS: INSULIN ASPART PER UNIT SC SCH ×4 (08:28→20:38)
[2021-08-20] MEDS: INSULIN GLARGINE SOLOSTAR 100 UNITS/ML 3 ML PEN SC SCH ×2 (08:29→20:38)
[2021-08-20] MEDS: PANTOprazole 40 MG TAB PO SCH ×2 (08:31→20:39)
[2021-08-20] MEDS: AMMONIUM LACTATE 12% LOTION 225 GM BTL EXT SCH ×2 (08:31→20:37)
[2021-08-20] MEDS: MICONAZOLE NITRATE POWDER 43 GM EXT SCH ×2 (08:31→20:39)
[2021-08-20] MEDS: FERROUS SULFATE 325 MG TAB PO SCH (08:31)
[2021-08-20] MEDS: POTASSIUM CHLORIDE 10 MEQ TABCR PO SCH (08:32)
[2021-08-20] MEDS: MULTIVITAMIN CHEWABLE TAB PO SCH (08:32)
[2021-08-20] MEDS: MAGNESIUM CHLORIDE 64MG DELAYED REL TAB PO SCH (08:32)
[2021-08-20] MEDS: AMOXICILLIN/CLAVULANATE 875 MG TAB PO SCH ×2 (08:32→20:37)
[2021-08-20] MEDS: MULTIVITAMIN TAB PO SCH (08:32)
[2021-08-20 10:00] LABS: Partial Thromboplastin Time 74.8 Seconds (21.0-31.0)
[2021-08-20 16:58] LABS: Partial Thromboplastin Ratio 2.8
[2021-08-20 17:06] LABS: Partial Thromboplastin Time 77.8 Seconds (21.0-31.0)
[2021-08-20] MEDS: WARFARIN SOD 5 MG TAB PO SCH (17:31)
--- NOTE | 2021-08-20 17:31 | Hospitalist Progress Note ---
Date of Service August 20, 2021 Assessment & Plan (1) Foot ulcer, right: Plan: 75-year-old female with PMH KENAN, paroxysmal atrial fibrillation, DM II, HTN, HLD, diastolic CHF, GERD, pulmonary hypertension, chronic oxygen use 2-3L, presented to ER 08/11 with complaint of right heel drainage for couple of days. She is being managed for the following: #. R heel diabetic neuropathic ulcer In ER pt afebrile, vitals stable. No leukocytosis. Lactate WNL CT right foot: Marked cellulitis is again seen with diffuse subcutaneous edema and skin thickening. Moderate to marked swelling of the foot is again noted. Skin ulceration at the plantar aspect of the heel now measures 15 mm. No underlying fluid collection or abscess is seen. No CT evidence for osteomyelitis. In ER given Zosyn, daptomycin s/p I&D of Diabetic Neuropathic Right Heel Ulcer 2cm x 1.5cm x 1.4cm, including skin, subcutaneous, periosteum 08/14 Continued on cefepime since 08/12 --> changed to Augmentin 08/18 d/t concerns of cefepime induced encephalopathy ID has recommended Zosyn and Dapto; with Cultures update, reached out to ID 08/19 (Dr. Alarcon), awaiting reply for further recs on antibiotic and duration. --> Reminded 2 times 08/20/21 --> awaiting response. 08/11 Blood cultures negative. 08/14 Wound cultures growing B fragilis. Wound nurse following-no wound vac can be placed because of stitches. Ortho signed off-post op followup as instructed in office. #. Likely Toxic Encephalopathy x 2 days. Resolved 08/19, AOx4 at bedside exam. CT head and MRI brain negative. Likely cefepime induced vs hospital induced vs both. continue to monitor. Resolved after stopping Cefepime. #. Lower extremity cellulitis Recent hospitalization was treated initially with Rocephin, changed to cefepime then to Augmentin as cultures remained negative to finish 14-day course for BLE cellulitis up till August 25. Bilateral erythema markedly improved largely resolved Treat with antibiotics as above. Await further ID recs. #. History PE/DVT Recently diagnosed with bilateral lower extremity DVT, PE on previous admission INR therapeutic, stop Heparin drip, c/w coumadin which has been increased to 5 mg daily. Patient on chronic oxygen supplementation at pemptokc-0-1 L. continue Trend daily INR. #. History of GI bleed History of recent GI bleed secondary to gastric ulcer Continue PPI #. Anemia Anemia secondary to history of recent GI bleed. Hgb: 7.9. Was 8 on 08/07/2021 No reported melena, hematochezia, hematemesis, hematuria, epistaxis Monitor #. Other chronic medical conditions: CKD stage III, DM2, paroxysmal A. fib, chronic diastolic heart failure, COPD, KENAN Continue/resume with home medications as and when appropriate Continue sliding scale insulin #. DVT Prophylaxis: On Coumadin Full Code Dispo- to rehab [facility] tomorrow if no new issues arise and w/ ID recs. (2) Encephalopathy: Admission and Anticipated Discharge Date Admission Date: August 11, 2021 Subjective Patient seen and examined at bedside as a follow-up of right heel diabetic neuropathic ulcer status post incision and debridement this admission and lower extremity cellulitis. Patient lying in bed, on 2 L nasal cannula oxygen, NAD, no new acute events overnight. Patient is alert and oriented x4. Patient reports eating and moving bowels okay. Patient denies any fever/headache/chills/chest pain/palpitations/belly pain/other review of symptoms. Physical Exam Physical Exam: GENERAL: Alert and oriented x3. NAD, on 2L. HEENT: No pallor, no icterus. Pupils equal, round and reactive to light. Oral mucosa moist. NECK: No JVD, no neck masses. HEART: S1 and S2 heard. Regular rate and rhythm. No murmur, no gallop. RESPIRATORY SYSTEM: Normal AP diameter. No accessory muscle use. No wheezing, no crackles. ABDOMEN: Soft, bowel sounds present, nontender, no distention. CENTRAL NERVOUS SYSTEM: No facial droop. Speech is clear. Obeys simple commands. Moves extremities. EXTREMITIES: 1+ BLE edema, chronic BLE lymphedema noted, BLE chronic skin changes noted. RLE heel dressing noted without soakage. Results & Data Results & Data ([facility]) Vital Signs (Past 12 Hours) Vital Signs Temp Pulse Pulse Resp BP Pulse Ox 08/20/21 15:54 36.7 C 72 18 109/67 92 08/20/21 15:46 70 08/20/21 12:00 36.7 C 70 18 124/68 95 08/20/21 08:23 70 08/20/21 08:06 37.1 C 63 21 122/76 98
[2021-08-20] MEDS: MAGNESIUM SULFATE / D5W 1 GM/100 ML BAG IV SCH ×4 (17:41→21:32)
[2021-08-20] MEDS: ATORVASTATIN 20 MG TAB PO SCH (20:37)
[2021-08-20] MEDS: SENNA 8.6 MG TAB PO SCH (20:39)
[2021-08-21 04:26] LABS: Hematocrit (blood only) 28.4 % (37-47); Hemoglobin 8.4 g/dL (12.0-16.0); Mean Corpuscular Hemoglobin 28.8 pg (25-34); Mean Corpuscular Hgb Conc 29.6 g/dL (32-36); Mean Corpuscular Volume 97.3 fL (80-100); Mean Platelet Volume 8.7 fL (7.4-10.4); Platelet Count 359 K/uL (130-400); RDW Coefficient of Variation 15.8 % (11.5-14.5); RDW Standard Deviation 56.2 fL (36.4-46.3); Red Blood Count 2.92 M/uL (4.2-5.4); White Blood Count 4.22 K/uL (4.8-10.8)
[2021-08-21 04:36] LABS: INR 2.6 (0.9-1.1)
[2021-08-21 04:53] LABS: Creatinine Clr Calc Pharmacy 52.1 ml/min; Est GFR (African American) 48.1 ml/min; Est GFR (Non-African American) 41.5 ml/min; Magnesium 2.1 mg/dl (1.7-2.4); Phosphorus 3.6 mg/dl (2.5-4.9); Potassium 4.8 mmol/L (3.5-5.1)
[2021-08-21] MEDS: INSULIN GLARGINE SOLOSTAR 100 UNITS/ML 3 ML PEN SC SCH ×2 (08:26→21:19)
[2021-08-21] MEDS: INSULIN ASPART PER UNIT SC SCH ×4 (08:26→21:25)
[2021-08-21] MEDS: MAGNESIUM CHLORIDE 64MG DELAYED REL TAB PO SCH (08:44)
[2021-08-21] MEDS: FERROUS SULFATE 325 MG TAB PO SCH (08:44)
[2021-08-21] MEDS: AMOXICILLIN/CLAVULANATE 875 MG TAB PO SCH ×2 (08:44→21:18)
[2021-08-21] MEDS: MULTIVITAMIN CHEWABLE TAB PO SCH (08:44)
[2021-08-21] MEDS: PANTOprazole 40 MG TAB PO SCH ×2 (08:44→21:18)
[2021-08-21] MEDS: MULTIVITAMIN TAB PO SCH (08:45)
[2021-08-21] MEDS: AMMONIUM LACTATE 12% LOTION 225 GM BTL EXT SCH ×2 (08:45→20:53)
[2021-08-21] MEDS: MICONAZOLE NITRATE POWDER 43 GM EXT SCH ×2 (08:45→21:20)
--- NOTE | 2021-08-21 13:44 | Hospitalist Progress Note ---
Date of Service August 21, 2021 Assessment & Plan (1) Foot ulcer, right: Plan: 75-year-old female with PMH KENAN, paroxysmal atrial fibrillation, DM II, HTN, HLD, diastolic CHF, GERD, pulmonary hypertension, chronic oxygen use 2-3L, presented to ER 08/11 with complaint of right heel drainage for couple of days. She is being managed for the following: #. R heel diabetic neuropathic ulcer In ER pt afebrile, vitals stable. No leukocytosis. Lactate WNL CT right foot: Marked cellulitis is again seen with diffuse subcutaneous edema and skin thickening. Moderate to marked swelling of the foot is again noted. Skin ulceration at the plantar aspect of the heel now measures 15 mm. No underlying fluid collection or abscess is seen. No CT evidence for osteomyelitis. In ER given Zosyn, daptomycin s/p I&D of Diabetic Neuropathic Right Heel Ulcer 2cm x 1.5cm x 1.4cm, including skin, subcutaneous, periosteum 08/14 D/w ortho 08/21 : During I&D, it did not look like infection had entered the bone. Continued on cefepime since 08/12 --> changed to Augmentin 08/18 d/t concerns of cefepime induced encephalopathy' 08/21: Rediscussion with ID, okay with Augmentin for total of 2 weeks if no suspicion of osteomyelitis. 08/11 Blood cultures negative. 08/14 Wound cultures growing B fragilis. Wound nurse following-no wound vac can be placed because of stitches. Ortho signed off-post op followup as instructed in office. #. Likely Toxic Encephalopathy x 2 days. Resolved 08/19, AOx4 at bedside exam. CT head and MRI brain negative. Likely cefepime induced vs hospital induced vs both. continue to monitor. Resolved after stopping Cefepime. #. Lower extremity cellulitis Recent hospitalization was treated initially with Rocephin, changed to cefepime then to Augmentin as cultures remained negative to finish 14-day course for BLE cellulitis up till August 25. Bilateral erythema markedly improved largely resolved Treat with antibiotics as above. #. History PE/DVT Recently diagnosed with bilateral lower extremity DVT, PE on previous admission INR therapeutic, c/w coumadin which has been increased to 5 mg daily. Patient on chronic oxygen supplementation at voxqgmnm-7-0 L. continue Trend daily INR. f/u with coumadin clinic as OP. #. History of GI bleed History of recent GI bleed secondary to gastric ulcer Continue PPI #. Anemia Anemia secondary to history of recent GI bleed. Hgb: 7.9. Was 8 on 08/07/2021 No reported melena, hematochezia, hematemesis, hematuria, epistaxis Monitor #. Other chronic medical conditions: CKD stage III, DM2, paroxysmal A. fib, chronic diastolic heart failure, COPD, KENAN Continue/resume with home medications as and when appropriate Continue sliding scale insulin #. DVT Prophylaxis: On Coumadin Full Code Dispo- to rehab when bed available. Medically stable as of now. (2) Encephalopathy: Admission and Anticipated Discharge Date Admission Date: August 11, 2021 Subjective Patient seen and examined at bedside as a follow-up of right heel diabetic neuropathic ulcer status post incision and debridement this admission and lower extremity cellulitis. Patient lying in bed, on 2 L nasal cannula oxygen, NAD, no new acute events overnight. Patient is alert and oriented x4. Patient reports eating and moving bowels okay. Patient denies any fever/headache/chills/chest pain/palpitations/belly pain/other review of symptoms. Physical Exam Physical Exam: GENERAL: Alert and oriented x3. NAD, on 2L. HEENT: No pallor, no icterus. Pupils equal, round and reactive to light. Oral mucosa moist. NECK: No JVD, no neck masses. HEART: S1 and S2 heard. Regular rate and rhythm. No murmur, no gallop. RESPIRATORY SYSTEM: Normal AP diameter. No accessory muscle use. No wheezing, no crackles. ABDOMEN: Soft, bowel sounds present, nontender, no distention. CENTRAL NERVOUS SYSTEM: No facial droop. Speech is clear. Obeys simple commands. Moves extremities. EXTREMITIES: 1+ BLE edema, chronic BLE lymphedema noted, BLE chronic skin [place]royo es noted. RLE heel dressing noted without soakage. Results & Data Results & Data ([facility]) Vital Signs (Past 12 Hours) Vital Signs Temp Pulse Pulse Resp BP Pulse Ox 08/21/21 11:17 36.7 C 64 20 159/70 H 95 08/21/21 07:20 67 08/21/21 06:39 36.5 C 73 20 147/68 H 97 08/21/21 04:06 36.7 C 69 18 137/71 96
[2021-08-21] MEDS: WARFARIN SOD 5 MG TAB PO SCH (17:04)
[2021-08-21] MEDS: ATORVASTATIN 20 MG TAB PO SCH (21:18)
[2021-08-21] MEDS: SENNA 8.6 MG TAB PO SCH (21:21)
[2021-08-22 07:53] LABS: INR 3.3 (0.9-1.1); Prothrombin Time 32.5 Seconds (9.0-12.0)
[2021-08-22 08:18] LABS: BUN Creatinine Ratio 38.1 (10-20); Calcium 9.2 mg/dl (8.5-10.1); Creatinine Clr Calc Pharmacy 55.6 ml/min; Est GFR (African American) 51.5 ml/min; Est GFR (Non-African American) 44.5 ml/min; Magnesium 1.5 mg/dl (1.7-2.4); Potassium 5.1 mmol/L (3.5-5.1)
[2021-08-22] MEDS: INSULIN ASPART PER UNIT SC SCH ×4 (08:33→21:46)
[2021-08-22] MEDS: MAGNESIUM CHLORIDE 64MG DELAYED REL TAB PO SCH (08:34)
[2021-08-22] MEDS: AMOXICILLIN/CLAVULANATE 875 MG TAB PO SCH ×2 (08:34→21:44)
[2021-08-22] MEDS: FERROUS SULFATE 325 MG TAB PO SCH (08:34)
[2021-08-22] MEDS: MULTIVITAMIN TAB PO SCH (08:34)
[2021-08-22] MEDS: MULTIVITAMIN CHEWABLE TAB PO SCH (08:34)
[2021-08-22] MEDS: INSULIN GLARGINE SOLOSTAR 100 UNITS/ML 3 ML PEN SC SCH ×2 (08:34→21:45)
[2021-08-22] MEDS: PANTOprazole 40 MG TAB PO SCH ×2 (08:34→21:44)
[2021-08-22] MEDS: MICONAZOLE NITRATE POWDER 43 GM EXT SCH ×2 (08:35→21:45)
[2021-08-22] MEDS: AMMONIUM LACTATE 12% LOTION 225 GM BTL EXT SCH ×2 (08:35→21:45)
[2021-08-22] MEDS: MAGNESIUM SULFATE / D5W 1 GM/100 ML BAG IV SCH ×3 (10:28→15:10)
--- NOTE | 2021-08-22 15:22 | Hospitalist Progress Note ---
Date of Service August 22, 2021 Assessment & Plan (1) Foot ulcer, right: Plan: 75-year-old female with PMH KENAN, paroxysmal atrial fibrillation, DM II, HTN, HLD, diastolic CHF, GERD, pulmonary hypertension, chronic oxygen use 2-3L, presented to ER 08/11 with complaint of right heel drainage for couple of days. She is being managed for the following: #. R heel diabetic neuropathic ulcer In ER pt afebrile, vitals stable. No leukocytosis. Lactate WNL CT right foot: Marked cellulitis is again seen with diffuse subcutaneous edema and skin thickening. Moderate to marked swelling of the foot is again noted. Skin ulceration at the plantar aspect of the heel now measures 15 mm. No underlying fluid collection or abscess is seen. No CT evidence for osteomyelitis. In ER given Zosyn, daptomycin s/p I&D of Diabetic Neuropathic Right Heel Ulcer 2cm x 1.5cm x 1.4cm, including skin, subcutaneous, periosteum 08/14 D/w ortho 08/21 : During I&D, it did not look like infection had entered the bone. Continued on cefepime since 08/12 --> changed to Augmentin 08/18 d/t concerns of cefepime induced encephalopathy' 08/21: Rediscussion with ID, okay with Augmentin for total of 2 weeks if no suspicion of osteomyelitis. 08/11 Blood cultures negative. 08/14 Wound cultures growing B fragilis. Wound nurse following-no wound vac can be placed because of stitches. Ortho signed off-post op followup as instructed in office. NWB on Rt heel. #. Likely Toxic Encephalopathy x 2 days. Resolved 08/19, AOx4 at bedside exam. CT head and MRI brain negative. Likely cefepime induced vs hospital induced vs both. continue to monitor. Resolved after stopping Cefepime. #. Lower extremity cellulitis Recent hospitalization was treated initially with Rocephin, changed to cefepime then to Augmentin as cultures remained negative to finish 14-day course for BLE cellulitis up till August 25. Bilateral erythema markedly improved largely resolved Treat with antibiotics as above. #. History PE/DVT Recently diagnosed with bilateral lower extremity DVT, PE on previous admission INR therapeutic, c/w coumadin which has been increased to 5 mg daily. Patient on chronic oxygen supplementation at pjprkmcr-1-7 L. continue Trend daily INR. f/u with coumadin clinic as OP. Hold coumadin as supratherapeutic today. Consider decreasing the dose upon resuming, prior home dose 3 mg daily. #. History of GI bleed History of recent GI bleed secondary to gastric ulcer Continue PPI #. Anemia Anemia secondary to history of recent GI bleed. Hgb: 7.9. Was 8 on 08/07/2021 No reported melena, hematochezia, hematemesis, hematuria, epistaxis Monitor #. Other chronic medical conditions: CKD stage III, DM2, paroxysmal A. fib, chronic diastolic heart failure, COPD, KENAN Continue/resume with home medications as and when appropriate Continue sliding scale insulin #. DVT Prophylaxis: On Coumadin Full Code Dispo- to rehab when bed available. Medically stable as of now. (2) Encephalopathy: Admission and Anticipated Discharge Date Admission Date: August 11, 2021 Subjective Patient seen and examined at bedside as a follow-up of right heel diabetic neuropathic ulcer status post incision and debridement this admission and lower extremity cellulitis. Patient lying in bed, on 2 L nasal cannula oxygen, NAD, no new acute events overnight. Patient is alert and oriented x4. Patient reports eating and moving bowels okay. Patient denies any fever/headache/chills/chest pain/palpit ations/belly pain/other review of symptoms. Physical Exam Physical Exam: GENERAL: Alert and oriented x3. NAD, on 2L. HEENT: No pallor, no icterus. Pupils equal, round and reactive to light. Oral mucosa moist. NECK: No JVD, no neck masses. HEART: S1 and S2 heard. Regular rate and rhythm. No murmur, no gallop. RESPIRATORY SYSTEM: Normal AP diameter. No accessory muscle use. No wheezing, no crackles. ABDOMEN: Soft, bowel sounds present, nontender, no distention. CENTRAL NERVOUS SYSTEM: No facial droop. Speech is clear. Obeys simple commands. Moves extremities. EXTREMITIES: 1+ BLE edema, chronic BLE lymphedema noted, BLE chronic skin changes noted. RLE heel dressing noted without soakage. Results & Data Results & Data ([facility]) Vital Signs (Past 12 Hours) Vital Signs Temp Pulse Pulse Resp BP Pulse Ox 08/22/21 11:15 36.6 C 73 20 120/59 L 98 08/22/21 09:02 83 08/22/21 07:20 36.4 C L 71 20 124/72 98
[2021-08-22] MEDS: ATORVASTATIN 20 MG TAB PO SCH (21:44)
[2021-08-22] MEDS: SENNA 8.6 MG TAB PO SCH (21:45)
[2021-08-23] MEDS: INSULIN ASPART PER UNIT SC SCH ×4 (08:19→20:06)
[2021-08-23] MEDS: PANTOprazole 40 MG TAB PO SCH ×2 (08:22→20:00)
[2021-08-23] MEDS: AMOXICILLIN/CLAVULANATE 875 MG TAB PO SCH ×2 (08:22→20:00)
[2021-08-23] MEDS: INSULIN GLARGINE SOLOSTAR 100 UNITS/ML 3 ML PEN SC SCH ×2 (08:22→20:07)
[2021-08-23] MEDS: FERROUS SULFATE 325 MG TAB PO SCH (08:22)
[2021-08-23] MEDS: MULTIVITAMIN TAB PO SCH (08:23)
[2021-08-23] MEDS: MULTIVITAMIN CHEWABLE TAB PO SCH (08:23)
[2021-08-23] MEDS: AMMONIUM LACTATE 12% LOTION 225 GM BTL EXT SCH ×2 (08:23→20:01)
[2021-08-23] MEDS: MAGNESIUM CHLORIDE 64MG DELAYED REL TAB PO SCH (08:23)
[2021-08-23] MEDS: MICONAZOLE NITRATE POWDER 43 GM EXT SCH ×2 (08:23→20:02)
[2021-08-23 08:45] LABS: INR 3.7 (0.9-1.1); Prothrombin Time 36.6 Seconds (9.0-12.0)
[2021-08-23] MEDS ORDERED: WARFARIN SOD 3 MG TAB PO SCH (16:00)
--- NOTE | 2021-08-23 16:04 | Hospitalist Progress Note ---
Date of Service August 23, 2021 Assessment & Plan (1) Foot ulcer, right: Plan: 75-year-old female with PMH KENAN, paroxysmal atrial fibrillation, DM II, HTN, HLD, diastolic CHF, GERD, pulmonary hypertension, chronic oxygen use 2-3L, presented to ER 08/11 with complaint of right heel drainage for couple of days. She is being managed for the following: #. R heel diabetic neuropathic ulcer In ER pt afebrile, vitals stable. No leukocytosis. Lactate WNL CT right foot: Marked cellulitis is again seen with diffuse subcutaneous edema and skin thickening. Moderate to marked swelling of the foot is again noted. Skin ulceration at the plantar aspect of the heel now measures 15 mm. No underlying fluid collection or abscess is seen. No CT evidence for osteomyelitis. In ER given Zosyn, daptomycin s/p I&D of Diabetic Neuropathic Right Heel Ulcer 2cm x 1.5cm x 1.4cm, including skin, subcutaneous, periosteum 08/14 D/w ortho 08/21 : During I&D, it did not look like infection had entered the bone. Continued on cefepime since 08/12 --> changed to Augmentin 08/18 d/t concerns of cefepime induced encephalopathy' 08/21: Rediscussion with ID, okay with Augmentin for total of 2 weeks if no suspicion of osteomyelitis. 08/11 Blood cultures negative. 08/14 Wound cultures growing B fragilis. Wound nurse following-no wound vac can be placed because of stitches. Ortho signed off-post op followup as instructed in office. NWB on Rt heel. #. Likely Toxic Encephalopathy x 2 days. Resolved 08/19, AOx4 at bedside exam. CT head and MRI brain negative. Likely cefepime induced vs hospital induced vs both. continue to monitor. Resolved after stopping Cefepime. #. Lower extremity cellulitis Recent hospitalization was treated initially with Rocephin, changed to cefepime then to Augmentin as cultures remained negative to finish 14-day course for BLE cellulitis up till August 25. Bilateral erythema markedly improved largely resolved Treat with antibiotics as above. #. History PE/DVT Recently diagnosed with bilateral lower extremity DVT, PE on previous admission INR therapeutic, c/w coumadin which has been increased to 5 mg daily. Patient on chronic oxygen supplementation at mnsfenof-9-0 L. continue Trend daily INR. f/u with coumadin clinic as OP. Hold coumadin as supratherapeutic today. Consider decreasing the dose upon resuming, prior home dose 3 mg daily. #. History of GI bleed History of recent GI bleed secondary to gastric ulcer Continue PPI #. Anemia Anemia secondary to history of recent GI bleed. Hgb: 7.9. Was 8 on 08/07/2021 No reported melena, hematochezia, hematemesis, hematuria, epistaxis Monitor #. Other chronic medical conditions: CKD stage III, DM2, paroxysmal A. fib, chronic diastolic heart failure, COPD, KENAN Continue/resume with home medications as and when appropriate Continue sliding scale insulin #. DVT Prophylaxis: On Coumadin Full Code Dispo- to rehab when bed available. Medically stable as of now. Likely DC seb. (2) Encephalopathy: Admission and Anticipated Discharge Date Admission Date: August 11, 2021 Subjective Patient seen and examined at bedside as a follow-up of right heel diabetic neuropathic ulcer status post incision and debridement this admission and lower extremity cellulitis. Patient lying in bed, on 2 L nasal cannula oxygen, NAD, no new acute events overnight. Patient is alert and oriented x4. Patient reports eating and moving bowels okay. Patient denies any fever/headache/chills/chest pain/palpitations/belly pain/other review of symptoms. Physical Exam Physical Exam: GENERAL: Alert and oriented x3. NAD, on 2L. HEENT: No pallor, no icterus. Pupils equal, round and reactive to light. Oral mucosa moist. NECK: No JVD, no neck masses. HEART: S1 and S2 heard. Regular rate and rhythm. No murmur, no gallop. RESPIRATORY SYSTEM: Normal AP diameter. No accessory muscle use. No wheezing, no crackles. ABDOMEN: Soft, bowel sounds present, nontender, no distention. CENTRAL NERVOUS SYSTEM: No facial droop. Speech is clear. Obeys simple commands. Moves extremities. EXTREMITIES: 1+ BLE edema, chronic BLE lymphedema noted, BLE chronic skin changes noted. RLE heel dressing noted without soakage. Results & Data Results & Data ([facility]) Vital Signs (Past 12 Hours) Vital Signs Temp Pulse Pulse Resp BP Pulse Ox 08/23/21 15:12 36.7 C 69 20 124/68 95 04/10/22 15:10 72 08/23/21 10:50 36.6 C 66 22 135/79 97 08/23/21 07:20 36.2 C L 73 20 145/62 H 95 08/23/21 07:04 75 08/23/21 04:13 36.5 C 64 18 123/71 95
[2021-08-23] MEDS: SENNA 8.6 MG TAB PO SCH (20:00)
[2021-08-23] MEDS: ATORVASTATIN 20 MG TAB PO SCH (20:00)
[2021-08-24 06:37] LABS: BUN Creatinine Ratio 38.3 (10-20); Calcium 9.2 mg/dl (8.5-10.1); Creatinine Clr Calc Pharmacy 54.7 ml/min; Est GFR (African American) 50.5 ml/min; Est GFR (Non-African American) 43.6 ml/min; INR 2.9 (0.9-1.1); Magnesium 1.5 mg/dl (1.7-2.4); Potassium 4.6 mmol/L (3.5-5.1); Prothrombin Time 29.5 Seconds (9.0-12.0)
[2021-08-24] MEDS: MAGNESIUM SULFATE / D5W 1 GM/100 ML BAG IV SCH ×2 (07:37→09:26)
[2021-08-24] MEDS: AMMONIUM LACTATE 12% LOTION 225 GM BTL EXT SCH (08:26)
[2021-08-24] MEDS: AMOXICILLIN/CLAVULANATE 875 MG TAB PO SCH (08:28)
[2021-08-24] MEDS: FERROUS SULFATE 325 MG TAB PO SCH (08:28)
[2021-08-24] MEDS: PANTOprazole 40 MG TAB PO SCH (08:28)
[2021-08-24] MEDS: MULTIVITAMIN TAB PO SCH (08:28)
[2021-08-24] MEDS: INSULIN GLARGINE SOLOSTAR 100 UNITS/ML 3 ML PEN SC SCH (08:28)
[2021-08-24] MEDS: MULTIVITAMIN CHEWABLE TAB PO SCH (08:29)
[2021-08-24] MEDS: MICONAZOLE NITRATE POWDER 43 GM EXT SCH (08:29)
[2021-08-24] MEDS: INSULIN ASPART PER UNIT SC SCH ×2 (08:32→13:20)
[2021-08-24] MEDS ORDERED: MAGNESIUM CHLORIDE 64MG DELAYED REL TAB PO SCH (09:00)
--- NOTE | 2021-08-24 12:28 | Discharge Summary ---
Date of Service August 24, 2021 Admission HPI Per Admitting Provider Patient is 75-year-old female with PMH KENAN, paroxysmal atrial fibrillation, DM II, HTN, HLD, diastolic CHF, GERD, pulmonary hypertension, chronic oxygen use 2- 3L, presented to ER with complaint of right heel drainage. Outpatient patient notes reviewed. Patient was admitted at [facility] 07/23/2021-08/07/2021 for weakness and fall. Was found to have bilateral lower extremity cellulitis, bilateral lower extremity DVT, PE, ICERA on CKD III. Was started on anticoagulation, had GI bleed secondary to gastric ulcer. Vascular surgery was consulted and IVC filter was not recommended. Patient had negative blood cultures finish 14-day course of antibiotics initially treated with cefepime changed to cefazolin. Was discharged on Coumadin. It was recommended patient go to rehab secondary to ambulatory dysfunction however declined. Patient presents today with complaint of right ear drainage. She reports her son has noticed drainage from right heel. Patient reports she is unable to see her feet so she was unaware. She d oes report tenderness to right heel which has been ongoing since her prior hospitalization. Reports since being home has not been able to ambulate with her walker. She reports her son works all day and she is unable to get up and move around on her own. Patient denies any known fever, chills. She is unsure if her lower extremities left more edematous or erythematous is from recent hospital discharge. Recently outpatient leather case finisher has reported patient willing to go to rehab and has potential bed hold at [facility] on 08/13/21. Denies fever/chills, diaphoresis, N/V/D/C, FAGAN, dizziness, syncope, vision changes, neck pain, CP, SOB, orthopnea, palpitations, cough, sore throat, choking, otalgia, rhinorrhea, abdominal pain, paresthesias, other rashes, urinary symptoms. Admission Exam Per Admitting Provider General: no distress, obese Head: normocephalic, atraumatic Eyes: PERRL, EOM's intact, conjunctiva non-injected, anicteric ENT: normal inspection external ears, nose, mucous membranes moist Neck: supple, trachea midline Lungs: clear, no respiratory distress, no wheezing/rhonchi/rales CV: RRR, no JVD, +pretibial edema Abd: protuberant, normal BS, soft, non-tender Ext: no calf tenderness, bilateral lower extremities large with edema, peeling skin, +slight erythema left lower leg, +erythema and warmth right lower leg. Right calcaneus with unstageable ulcer with eschar with surrounding erythema, no active discharge noted, +tenderness to palpation Neuro: A&O x 3, no focal deficits noted, normal affect Skin: warm, dry Principal Diagnosis Right heel diabetic neuropathic ulcer Lower extremity cellulitis Discharge Exam GENERAL: Alert and oriented x3. NAD, on 2L. HEENT: No pallor, no icterus. Pupils equal, round and reactive to light. Oral mucosa moist. NECK: No JVD, no neck masses. HEART: S1 and S2 heard. Regular rate and rhythm. No murmur, no gallop. RESPIRATORY SYSTEM: Normal AP diameter. No accessory muscle use. No wheezing, no crackles. ABDOMEN: Soft, bowel sounds present, nontender, no distention. CENTRAL NERVOUS SYSTEM: No facial droop. Speech is clear. Obeys simple commands. Moves extremities. EXTREMITIES: 1+ BLE edema, chronic BLE lymphedema noted, BLE chronic skin vamsi nges noted. RLE heel dressing noted without soakage. Discharge Data Allergies Allergy/AdvReac Type Severity Reaction Status Date / Time No Known Allergies Allergy Mild Verified 07/23/21 18:29 Consultations 08/11/21 14:31 ED Decision to Admit Stat 08/12/21 11:02 Consult Orthopedic Surgery Routine 08/13/21 21:12 Consult Infectious Diseases Routine Procedures Performed Operation Date: 08/14/21 08:20 Actual Procedures p Incision and Debridement of Diabetic Neuropathic Right Heel Ulcer 2cm x 1.5cm x 1.4cm, including skin, subcutaneous, periosteum(Right) - Eric Yung DO Ordered Studies 08/11/21 14:14 CT foot RT wo con Stat 08/17/21 11:56 CT head/brain wo con Stat 08/17/21 17:36 MR brain wo con Routine Hospital Course (1) Foot ulcer, right: 75-year-old female with PMH KENAN, paroxysmal atrial fibrillation, DM II, HTN, HLD, diastolic CHF, GERD, pulmonary hypertension, chronic oxygen use 2-3L, presented to ER 08/11 with complaint of right heel drainage for couple of days. She was managed for the following: #. R heel diabetic neuropathic ulcer In ER pt afebrile, vitals stable. No leukocytosis. Lactate WNL CT right foot: Marked cellulitis is again seen with diffuse subcutaneous edema and skin thickening. Moderate to marked swelling of the foot is again noted. Skin ulceration at the plantar aspect of the heel now measures 15 mm. No underlying fluid collection or abscess is seen. No CT evidence for osteomyelitis. In ER given Zosyn, daptomycin s/p I&D of Diabetic Neuropathic Right Heel Ulcer 2cm x 1.5cm x 1.4cm, including skin, subcutaneous, periosteum 08/14 D/w ortho 08/21 : During I&D, it did not look like infection had entered the bone. Continued on cefepime since 08/12 --> changed to Augmentin 08/18 d/t concerns of cefepime induced encephalopathy' 08/21: Rediscussion with ID, okay with Augmentin for total of 2 weeks if no suspicion of osteomyelitis. 08/11 Blood cultures negative. 08/14 Wound cultures growing B fragilis. Wound nurse following-no wound vac can be placed because of stitches. Ortho signed off-post op followup as instructed in office. NWB on Rt heel. C/w antibiotic for 5 more days. #. Likely Toxic Encephalopathy x 2 days. Resolved 08/19, AOx4 at bedside exam. CT head and MRI brain negative. Likely cefepime induced vs hospital induced vs both. continue to monitor. Resolved after stopping Cefepime. #. Lower extremity cellulitis Recent hospitalization was treated initially with Rocephin, changed to cefepime then to Augmentin as cultures remained negative to finish 14-day course for BLE cellulitis up till August 25. Bilateral erythema markedly improved largely resolved Treat with antibiotics as above. #. History PE/DVT Recently diagnosed with bilateral lower extremity DVT, PE on previous admission INR therapeutic, c/w coumadin which has been increased to 5 mg daily. Patient on chronic oxygen supplementation at [id number]-5-7 L. continue Trend daily INR. f/u with coumadin clinic as OP. Hold coumadin as therapeutic today, resume at 3 mg daily (prior dose) and have PT/INR drawn in 3 days and f/u with coumadin clinic as OP for necessary dose adjustment #. History of GI bleed History of recent GI bleed secondary to gastric ulcer Continue PPI #. Anemia Anemia secondary to history of recent GI bleed. Hgb: 7.9. Was 8 on 08/07/2021 No reported melena, hematochezia, hematemesis, hematuria, epistaxis Monitor #. Other chronic medical conditions: CKD stage III, DM2, paroxysmal A. fib, chronic diastolic heart failure, COPD, KENAN Continue/resume with home medications as and when appropriate Continue sliding scale insulin #. DVT Prophylaxis: On Coumadin Full Code Dispo- to rehab when bed available. Medically stable as of now. Likely DC seb. Patient is being discharged to SNF with following instruction at the point of discharge: Follow-up with your primary care physician within a week time. Take care of your right heel according to your surgery doctor's recommendation. Establish and follow-up with your freelance graphic designer as an outpatient. f/u wound care. Follow-up with your orthopedic doctor as instructed after discharge. Continue to take antibiotics as instructed. Your potassium supplement has been stopped as your potassium level in the hospital were WNL without it. Get your blood work BMP and magnesium level done in 4 to 5 days upon discharge. You will need your blood work PT/INR done in 3 days upon discharge, and a close follow-up with Coumadin clinic for necessary dose adjustment of your Coumadin. Take medications as prescribed. (2) Encephalopathy: Total Time Total Time Spent Total Time Spent (In Minutes): 35 Discharge Plan Discharge Items Patient Disposition: Transfer [facility] Reason For Visit: HEEL WOUND Discharge Diagnosis: Right heel diabetic neuropathic ulcer Lower extremity cellulitis Condition on Discharge: Fair Activity: As commented below Activity Comment: Nonweightbearing on right heel until seen by orthopedics. Weightbearing: Right non-weightbearing Non-emergency contact: Primary Care Provider Call non-emergency contact if: you have any medication questions, your symptoms worsen, your pain is worsening and your temperature is above 101 Follow-up/Referrals: Eric Yung DO [Surgeon] - (Call to make a follow-up for approximately 1 week after discharge.) Tasneem Francisco DO [Primary Care Provider] - Diet: Carb Consistent or DM2 and Low Sodium (2gm) Addtl Attending Provider Instructions: Follow-up with your primary care physician within a week time. Take care of your right heel according to your surgery doctor's recommendation. Establish and follow-up with your freelance graphic designer as an outpatient. f/u wound care. Follow-up with your orthopedic doctor as instructed after discharge. Continue to take antibiotics as instructed. Your potassium supplement has been stopped as your potassium level in the hospital were WNL without it. Get your blood work BMP and magnesium level done in 4 to 5 days upon discharge. You will need your blood work PT/INR done in 3 days upon discharge, and a close follow-up with Coumadin clinic for necessary dose adjustment of your Coumadin. Take medications as prescribed. Addtl Product Grader Provider Instructions: ACTIVITY RECOMMENDATIONS: Limitations: No weight bearing to affected limb at all times. SPECIAL CARE INSTRUCTIONS: * Some drainage onto the dressing is normal and is no cause for alarm. * Some swelling is natural especially after walking. * When resting, keep your foot elevated above the level of your heart. * Call [facility] if you notice: -Increased drainage -Fever over 101 degrees F -Severe constant pain BANDAGE: * Leave bandage/cast in place unless otherwise directed. * Keep bandage/cast dry at all times. * Daily dressing changes unless a wound VAC has been placed. If wound VAC is in place, please follow instructions given by the wound care team. FOLLOW UP VISIT WITH DR. YUNG If appointment is not already scheduled: Please call [facility] after you get home today to schedule a follow-up appointment for [address] Yung at . Pending Studies at Discharge: No Stand-Alone Forms: My [facility] Skilled Items Patient informed of condition?: Yes DNR: No Discharge Level of Care: Skilled Communicable Disease: No Discharge Prognosis: Stable Lines: None Urinary Catheter: No Medications and DC Order Prescriptions: New amoxicillin-pot clavulanate 875-125 mg tablet 1 tab PO BID 5 Days Qty: 10 RF: 0 polyethylene glycol 3350 [Miralax] 17 gram Powder In Packet 17 g PO DAILY PRN (Reason: constipation) Qty: 30 RF: 0 Probiotic 3 billion cell capsule 3,000 mmu cells PO DAILY 10 Days Qty: 10 RF: 0 Continued atorvastatin [Lipitor] 20 mg tablet 20 mg PO QPM RF: 0 ferrous sulfate 325 mg (65 mg iron) tablet 325 mg PO DAILY RF: 0 Novolin R Flexpen 100 unit/mL (3 mL) insulin pen 10 unit SUBCUT AC RF: 0 omega 7-auy-cdv-fish oil [Fish Oil] 1,000 mg (120 mg-180 mg) Capsule 1 cap PO BIDM RF: 0 multivitamin Tablet 1 tab PO DAILY RF: 0 warfarin 3 mg Tablet 3 mg PO DAILY@1600 30 Days Qty: 30 RF: 0 Desenex 2 % Powder 1 applic EXT BID 30 Days Qty: 1 RF: 0 pantoprazole 40 mg Tablet,Delayed Release (Dr/Ec) 40 mg PO BID 30 Days Qty: 60 RF: 0 Lac-Hydrin Five 5 % Lotion 1 g EXT BID 30 Days Qty: 1 RF: 0 lisinopril 5 mg tablet 5 mg PO DAILY RF: 0 Lantus Solostar U-100 Insulin 100 unit/mL (3 mL) insulin pen 50 unit subcut QPM RF: 0 Changed Mag 64 64 mg Tablet,Delayed Release (Dr/Ec) 64 mg PO BID 30 Days Qty: 30 RF: 0 Discontinued potassium chloride 10 mEq tablet extended release 10 meq PO DAILY RF: 0 cinnamon bark [Cinnamon] 500 mg Capsule 500 mg PO DAILY RF: 0 Discharge Orders: Discharge Order (Routine); Ordered 08/24/21 Ordered By: Ramana Singh Admission Data Admit Date/Time: 08/11/21 14:55 Attending Provider: Ramana Singh Admit Provider: Marc Dinh Primary Care Provider: Tasneem Francisco Other Providers: [facility] ; Marc Dinh ; Eric Yung ; Armando Valdes ; Cookie Garcia ; Franko Alejandro I. ; Rubens Barnes II ; Bozena Gonzales ; Robert Bazan ; Daniel Alarcon
== END 2021-08-24 15:00 | DRG 622 ==
LOC: ED 13:18 → 2W 14:55 → SUATTDRO 14:55 → 2W 20:32 → 2N 08-18 07:40

== ENCOUNTER 2022-02-09 08:44 | Inpatient (IN) ==
[2022-02-09 09:28] LABS: Hematocrit (blood only) 36.4 % (34.1-44.9); Hemoglobin 10.3 g/dl (12.0-16.0); Mean Corpuscular Hgb Conc 28.3 g/dL (32.0-36.0); Mean Corpuscular Volume 102.5 fL (80.0-100.0); Mean Platelet Volume 9.4 fL (9.4-12.3); Platelet Count 285 K/uL (130-400); RDW Coefficient of Variation 13.9 % (11.5-14.5); RDW Standard Deviation 52.9 fL (36.4-46.3); Red Blood Count 3.55 M/uL (3.93-5.22); White Blood Count 6.79 K/ul (4.8-10.8)
[2022-02-09] MEDS ORDERED: CEFEPIME 2,000 MG/20 ML VIAL IV STA (09:41)
[2022-02-09] MEDS ORDERED: VANCOMYCIN CONSULT ACTIVE PRN (09:41)
[2022-02-09] MEDS ORDERED: VANCOMYCIN HCL 2,000 MG in SODIUM CHLORIDE 0.9% 500 ML IV SCH (09:45)
[2022-02-09 09:46] LABS: Appearance Urine Turbid (Clear); Bacteria Urine Automated 1+ (Negative); Bilirubin Urine Negative (Negative); Blood Urine 2+ (Negative); Color Urine Dark Yellow; Epithelial Cell Urine Auto >30 /lpf (0-5); Glucose Urine UA Negative (Negative); Ketones Urine Negative (Negative); Leukocyte Esterase Urine 1+ (Negative); Nitrite Urine Negative (Negative); Protein Urine 1+ (Negative); RBC Urine Automated 0-4 /hpf (0-4); Specific Gravity Urine 1.018 (1.000-1.030); Urobilinogen Urine Negative (Negative)
[2022-02-09 09:53] LABS: INR 1.2 (0.9-1.1); Partial Thromboplastin Time 26.5 Seconds (21.0-31.0)
[2022-02-09 10:05] LABS: Basophilic Stippling 1+; Basophils # (auto) 0.03 K/uL (0-0.2); Basophils % (auto) 0.4 %; Eosinophils # (auto) 0.01 K/uL (0-0.50); Eosinophils % (auto) 0.1 %; Hypochromasia Present; Immature Granulocytes # (auto) 0.05 K/uL (0.00-0.02); Immature Granulocytes % (auto) 0.7 %; Lymphocytes # (auto) 0.81 K/uL (1.2-3.4); Lymphocytes % (auto) 11.9 %; Monocytes # (auto) 0.38 K/uL (0.24-0.82); Monocytes % (auto) 5.6 %; Neutrophils # (auto) 5.51 K/uL (1.4-6.5); Neutrophils % (auto) 81.3 %; Polychromasia 1+; Stomatocytes 2+
--- NOTE | 2022-02-09 10:08 | XRay Report ---
XR chest 1V portable CLINICAL HISTORY: Sepsis. COMPARISON STUDY: Chest CT July 25, 2021. Chest radiograph July 26, 2021. FINDINGS: Median sternotomy wires are noted. Cardiomegaly is unchanged. There is no pneumothorax. The re are possible trace bilateral pleural effusions. This exam is compromised by suboptimal penetration related to portable technique. Mild interstitial thickening. Bibasilar opacities are noted. IMPRESSION: 1. Cardiomegaly. Pulmonary vascular congestion with possible mild pulmonary edema and small bilateral pleural effusions. 3. Bibasilar opacities which could reflect an infectious process or atelectasis. Radiographic follow- up is recommended. ACT 112: Negative or not required by law. Electronically signed by: Earl Wallace M.D. 02/09/2022 10:07 AM
[2022-02-09 10:22] LABS: iSTAT Arterial Blood Gas HCO3 43 meg/L (19-24); iSTAT Arterial Blood Gas pCO2 > 115 mmHg (35-46); iSTAT Arterial Blood Gas pH 7.13 (7.35-7.45); iSTAT Arterial Blood Gas pO2 63 mmHg (80-95); iSTAT Carbon Dioxide > 40 mmol/L (24-31); iSTAT Hematocrit 32 % (37-47); iSTAT Hemoglobin 10.9 g/dl (12.0-16.0); iSTAT Potassium 6.5 mmol/L (3.3-5.0); iSTAT Sodium 136 mmol/L (135-144)
[2022-02-09 10:31] LABS: Alanine Aminotransferase 16 U/L (7-52); Albumin Level 3.7 gm/dl (3.4-5.0); Alkaline Phosphatase 85 U/L (34-104); BUN Creatinine Ratio 22.7 (10-20); Bilirubin Direct 0.1 mg/dl (0-0.2); Bilirubin,Total 0.3 mg/dl (0.2-1.0); Blood Urea Nitrogen 30 mg/dl (6-23); Calcium 9.3 mg/dl (8.5-10.1); Chloride 97 mmol/L (98-107); Est GFR (African American) 44.7 ml/min; Est GFR (Non-African American) 38.5 ml/min; Glucose 225 mg/dl (70-99(Fasting)); Magnesium 1.7 mg/dl (1.7-2.4); Sodium 138 mmol/L (136-145); Total Protein 8.1 gm/dl (6.0-8.3); Troponin I High Sensitivity 43.7 pg/ml (0-14)
[2022-02-09 10:32] LABS: Aspartate Aminotransferase 14 U/L (13-39); Potassium 6.9 mmol/L (3.5-5.1)
[2022-02-09 10:33] LABS: Carbon Dioxide 42 mmol/L (21-32)
[2022-02-09 10:34] LABS: Anion Gap -1 (3-11)
[2022-02-09] MEDS ORDERED: RAPID SEQUENCE INDUCTION BAG ONE (10:41)
[2022-02-09] MEDS ORDERED: NovoLIN-R INSULIN PER UNIT CHARGE IV STA (10:41)
[2022-02-09] MEDS ORDERED: CALCIUM GLUCONATE 1,000 MG/60 ML BAG IV STA (10:41)
[2022-02-09] MEDS ORDERED: DEXTROSE 50% 50 ML SYRINGE IV ONE (10:41)
[2022-02-09] MEDS ORDERED: SODIUM BICARB 8.4% INJ 50 MEQ/50 ML SYR IV STA (10:41)
[2022-02-09] MEDS ORDERED: ETOMIDATE 2 MG/ML 20 ML VIAL IV ONE ×2 (10:42→15:52)
[2022-02-09 10:48] LABS: iSTAT Arterial Blood Gas pH 7.13 (7.35-7.45); iSTAT Hematocrit 33 % (37-47); iSTAT Hemoglobin 11.2 g/dl (12.0-16.0); iSTAT Potassium 6.5 mmol/L (3.3-5.0); iSTAT Sodium 136 mmol/L (135-144)
[2022-02-09 10:49] LABS: iSTAT Allen Test Acceptable; iSTAT Arterial Blood Gas HCO3 43 meg/L (19-24); iSTAT Arterial Blood Gas pCO2 128 mmHg (35-46); iSTAT Arterial Blood Gas pO2 85 mmHg (80-95); iSTAT Carbon Dioxide 47 mmol/L (24-31); iSTAT Sample Type Arterial
[2022-02-09] MEDS: MIDAZOLAM HCL 1 MG/ML 2ML VIAL IV PRN ×2 (11:03→12:10)
[2022-02-09] MEDS: fentaNYL citrate 100 MCG/2 ML VIAL IV PRN ×2 (11:05→12:07)
[2022-02-09] MEDS ORDERED: STAT IV Infusion **Titration per Protocol STA (11:09)
[2022-02-09] MEDS: propofoL 1,000 MG/100 ML VIAL IV SCH ×4 (11:13→22:17)
[2022-02-09] MEDS: PROPOFOL BOLUS FROM BAG IV PRN ×2 (11:18→11:29)
--- NOTE | 2022-02-09 11:25 | XRay Report ---
XR chest 1V portable CLINICAL HISTORY: post intubation TECHNIQUE: Single frontal radiograph of the chest was obtained. Comparison: Comparison is made to chest radiograph 02/09/2022 FINDINGS: Exam is limited by underpenetration. Median sternotomy wires are unchanged. The endotracheal tube ter minates 22 mm from the che. Cardiomegaly is noted. Bilateral lower lung predominant airspace opaci ties are seen. There is a small left pleural effusion. IMPRESSION: 1. Endotracheal tube terminates 2.2 cm from the che, satisfactory position. 2. Bilateral lower lung predominant airspace opacities which may represent atelectasis, pneumonia, a nd/or aspiration. Stable cardiomegaly. 3. Small left pleural effusion. ACT 112: Negative or not required by law. Electronically signed by: Jese Oviedo M.D. 02/09/2022 11:23 AM
--- NOTE | 2022-02-09 11:41 | History & Physical Report ---
Date of Service February 09, 2022 Assessment & Plan (1) Acute on chronic respiratory failure with hypoxia and hypercapnia: Plan: - Acute on chronic, patient with a chronic O2 requirement of 23L NC. Now intubated after failing to improve on BiPAP trial in ED. - CXR: Endotracheal tube terminates 2.2 cm from the che, satisfactory position. Bilateral lower lung predominant airspace opacities which may represent atelectasis, pneumonia, and/or aspiration. Stable cardiomegaly. Small left pleural effusion. - Empirically on vancomycin and cefepime prior to ICU. - Vancomycin switched tow Linezolid, cefepime continued in ICU. - mIVF ordered, NSS 125 cc/hr - Respiratory/ICU to manage vent settings. - Initial AB.13/128/85/43/47. - Repeat ABG after intubation: 7.34, PCO2 74, O2 85. - Serial BGs and BMPs. - Unknown cause for acute respiratory failure at this time, may be due to underlying pneumonia as there are b/l air opacities on CXR. (2) Hyperkalemia: Plan: - Potassium 6.9 in setting of acute respiratory failure, respiratory acidosis, CIERA on CKD. - Received IV calcium, insulin and dextrose, sodium bicarb in ED. Repeat POC potassium improved to 5.6. - Repeat BMP pending. - Hold lisinopril for now. (3) Urlef-oz-pkmwsgj kidney injury: Plan: - Cr mildly elevated at 1.32 from baseline 1-1.2. - In the setting of recent UTI apparently treated with multiple abx, most recently Bactrim. - Received 1 L IVF bolus in ED. Continue maintenance IVF, avoid nephrotoxins and renally dose as able. - Serial BMPs. (4) Demand ischemia of myocardium: Plan: - Elevated trop, 43.7 on admission and increased to 200 this afternoon, suspect due to demand. - Continue to trend. Will order echo id troponin continues to increase. (5) Anemia: Plan: - Stable, in the setting of GI bleed/ nonbleeding duodenal ulcers in July., Hgb normal range lately has been 79. It is 10.3 today. - No signs or symptoms of acute GI bleed or blood loss. - Heparin SC for VTE ppx, stop with acute drop in HGb or s/s acute bleed. (6) DMII (diabetes mellitus, type 2): Plan: - ICU hyperglycemic protocol while in the ICU. - Regimen includes 50 units of Lantus at night with 10 units of Novolin prior to meals. - Presented with elevated sugars in the 200s. - Accucheks q6h. - A1c in AM. (7) Morbid obesity: Plan - Admitted to ICU. - SCDs, Heparin SC for VTE ppx. - Full Code per ED provider discussion with son. History of Present Illness Chief Complaint: Patient was found to be unresponsive this morning at [facility]. Primary Care Provider: [facility] Patricia Don is a 76-year female with past medical history significant for KENAN, paroxysmal A. fib, DM2, hypertension, hyperlipidemia, HFpEF, GERD, pulmonary hypertension, O2 requirement of 2-3 L who is presenting today from [facility] for being minimally responsive for staff. Patient is currently altered and intubated, therefore history is obtained primarily from ED provider. Patient has been treated with several antibiotics for UTI at [facility]. Patient was responsive to name only. Vital signs were checked. She is chronically on 2-3 L of O2, was found to be 66% on her usual oxygen requirement. EMS was called to transfer patient to ED for further evaluation. Initial POC AB.13/128/85/43/47. Patient was placed on BiPAP, repeat blood gas did not show improvement after BiPAP, therefore decision was made to intubate patient in ED. She was successfully intubated and placed on a propofol drip, however became hypotensive, so IVF was given and BP normalized. Labs also significant for POC potassium 6.5. Patient was given IV calcium, insulin with dextrose, and sodium bicarb. Repeat ABG after intubation reveals pH improved to 7.34, PCO2 74, O2 85, bicarb still elevated at 40. Potassium improved to 5.6. Labs otherwise significant for stable hemoglobin 10.3, glucose in 200s, creatinine slightly elevated 1.32, Trope 43.7, BNP 227. Lactate on presentation 0.8. No other electrolyte abnormalities. UA with some evidence of infection with 1030 WBCs, 1+ leuk esterase, 1+ bacteria, however with >30 epithelial cells. In addition to the above treatment for respiratory acidosis and hyperkalemia, patient was given empiric vancomycin and cefepime, as well as 1 L IVF. She will be admitted to the ICU for further care. Allergies Allergy/AdvReac Type Severity Reaction Status Date / Time No Known Allergies Allergy Mild Verified 07/23/21 18:29 Home Medications Medication Instructions Recorded Confirmed Type atorvastatin 20 mg tablet (Lipitor) 20 mg PO QPM 04/08/20 02/09/22 History ferrous sulfate 325 mg (65 mg 325 mg PO DAILY 04/08/20 02/09/22 History iron) tablet insulin regular human 100 unit/mL 10 unit subcut AC 07/23/21 02/09/22 History (3 mL) subcutaneous pen (Novolin R Flexpen) multivitamin 1 tab PO DAILY 07/23/21 02/09/22 History omega 2-gso-glr-fish oil 1,000 mg 1 cap PO BIDM 07/23/21 02/09/22 History (120 mg-180 mg) capsule (Fish Oil) insulin glargine 100 unit/mL (3 50 unit subcut QPM 08/11/21 02/09/22 History mL) subcutaneous pen (Lantus Solostar U-100 Insulin) lisinopril 5 mg tablet 5 mg PO DAILY 08/11/21 02/09/22 History polyethylene glycol 3350 17 gram 17 g PO DAILY PRN constipation #30 08/24/21 02/09/22 Rx oral powder packet (Miralax) ea sulfamethoxazole 800 1 tab PO Q12 UTI 02/09/22 02/09/22 History mg-trimethoprim 160 mg tablet Past Med/Surg History Medical History Aortic valve stenosis CKD (chronic kidney disease) stage 3, GFR 30-59 ml/min Diabetes Diastolic CHF Dyslipidemia GERD (gastroesophageal reflux disease) HTN (hypertension) Morbid obesity with BMI of 50.0-59.9, adult Obstructive sleep apnea Paroxysmal A-fib Pulmonary HTN Vitamin D deficiency Surgical History History of cardiac cath Hx of total knee arthroplasty S/P AVR Family History Father Cancer pancreatic cancer Social History Smoking Status: Never smoker Second Hand Exposure: No; Hx Alcohol Use: No Hx Substance Use: No Preferred Language: Japanese Communication Ability: Effective Mud Mixer Required: No Beliefs That Will Affect Care: None marital status: Current Living Situation: Senior Care Current Living Situation Comment: lives at home with son Other Information That Helps Us Care for You: No Feels Safe at Home: Declines to Answer Assistive Devices: CPAP and Oxygen - Continuous Review of Systems Review of Systems: Unobtainable due to endotracheal tube Physical Exam Physical Exam: General: sedated and intubated Head: Normocephalic, atraumatic ENT: PERRL, EOMI, no pharyngeal exudate, mucous membranes moist Chest: Clear to auscultation, on room air, no adventitious breath sounds Cardiac: Regular rate and rhythm, no murmur, no JVD, normal peripheral pulses, good capillary refill Abdominal: NABS x 4 quadrants, soft, nontender to palpation, no rebound, guarding or tenderness Extremities: b/l LE edema; calfs nontender to palpation Skin: no rash or erythema Results & Data Results & Data ([facility]) Vital Signs (Past 12 Hours) Vital Signs Temp Pulse Pulse Resp BP BP Pulse Ox 02/09/22 11:20 71 19 127/57 L 99 02/09/22 11:12 66 27 H 100 02/09/22 11:00 97 H 19 99 02/09/22 10:56 118/64 02/09/22 10:56 87 16 100 02/09/22 10:45 80 12 96 02/09/22 10:45 98/52 L 02/09/22 10:40 83 18 93 02/09/22 10:40 104/57 L 02/09/22 11:11 71 18 149/66 H 98 02/09/22 10:31 96/48 L 02/09/22 10:31 63 95 02/09/22 10:30 74 94 02/09/22 10:15 81 95 02/09/22 10:03 106/62 02/09/22 10:03 82 22 91 02/09/22 10:00 82 20 95 02/09/22 09:45 93 H 19 91 02/09/22 09:30 90 20 95 02/09/22 09:30 103/64 02/09/22 09:20 88 22 94 02/09/22 09:15 97 H 31 H 97 02/09/22 09:14 128/71 02/09/22 09:14 97 H 31 H 96 02/09/22 09:00 100 H 18 97 02/09/22 08:58 100 H 29 H 96 02/09/22 09:00 62 L 02/09/22 09:04 97 02/09/22 09:04 37.3 C 98 H 28 H 128/71 97 O2 Del Method O2 Flow Rate FiO2 02/09/22 11:20 Mechanical Vent 02/09/22 11:12 40 02/09/22 11:00 02/09/22 10:56 02/09/22 10:56 Mechanical Vent 02/09/22 10:45 02/09/22 10:45 02/09/22 10:40 02/09/22 10:40 02/09/22 11:11 Mechanical Vent 50 02/09/22 10:31 02/09/22 10:31 02/09/22 10:30 02/09/22 10:15 02/09/22 10:03 02/09/22 10:03 02/09/22 10:00 02/09/22 09:45 02/09/22 09:30 02/09/22 09:30 02/09/22 09:20 35 02/09/22 09:15 02/09/22 09:14 02/09/22 09:14 02/09/22 09:00 02/09/22 08:58 02/09/22 09:00 Room Air 02/09/22 09:04 Oxymask 8 02/09/22 09:04 Oxymask 8 Laboratory Results Abnormal lab results 02/09/22 02/09/22 02/09/22 Range/Units 08:57 09:05 09:05 RBC 3.55 L (3.93-5.22) M/uL Hgb 10.3 L (12.0-16.0) g/dl POC Hgb (12.0-16.0) g/dl POC Hct (37-47) % MCV 102.5 H (80.0-100.0) fL MCHC 28.3 L (32.0-36.0) g/dL RDW Std Deviation 52.9 H (36.4-46.3) fL Lymph # (Auto) 0.81 L (1.2-3.4) K/uL Immature Gran # (Auto) 0.05 H (0.00-0.02) K/uL PT (9.0-12.0) Seconds INR (0.9-1.1) POC pH (7.35-7.45) POC pCO2 (35-46) mmHg POC pO2 (80-95) mmHg POC HCO3 (19-24) ousmane/L POC Total CO2 (24-31) mmol/L POC Base Excess (-9-1.8) ousmane/L POC ABG O2 Sat (90-95) % POC Potassium (3.3-5.0) mmol/L Potassium 6.9 H* (3.5-5.1) mmol/L Chloride 97 L (98-107) mmol/L Carbon Dioxide 42 H* (21-32) mmol/L Anion Gap -1 L (3-11) BUN 30 H (6-23) mg/dl Creatinine 1.32 H (0.6-1.2) mg/dl BUN/Creatinine Ratio 22.7 H (10-20) Glucose 225 H (70-99(Fasting)) mg/dl POC Glucose 223 H (70-99) mg/dl Troponin I High Sens 43.7 H (0-14) pg/ml B-Natriuretic Peptide (0-100) pg/ml Urine Appearance (Clear) Urine Protein (Negative) Urine Blood (Negative) Ur Leukocyte Esterase (Negative) Urine WBC (Auto) (0-5) /hpf U Hyaline Cast (Auto) (0-5) /lpf U Epithel Cells (Auto) (0-5) /lpf Urine Bacteria (Auto) (Negative) 02/09/22 02/09/22 02/09/22 Range/Units 09:05 09:14 09:17 RBC (3.93-5.22) M/uL Hgb (12.0-16.0) g/dl POC Hgb (12.0-16.0) g/dl POC Hct (37-47) % MCV (80.0-100.0) fL MCHC (32.0-36.0) g/dL RDW Std Deviation (36.4-46.3) fL Lymph # (Auto) (1.2-3.4) K/uL Immature Gran # (Auto) (0.00-0.02) K/uL PT 13.0 H (9.0-12.0) Seconds INR 1.2 H (0.9-1.1) POC pH (7.35-7.45) POC pCO2 (35-46) mmHg POC pO2 (80-95) mmHg POC HCO3 (19-24) ousmane/L POC Total CO2 (24-31) mmol/L POC Base Excess (-9-1.8) ousmane/L POC ABG O2 Sat (90-95) % POC Potassium (3.3-5.0) mmol/L Potassium (3.5-5.1) mmol/L Chloride (98-107) mmol/L Carbon Dioxide (21-32) mmol/L Anion Gap (3-11) BUN (6-23) mg/dl Creatinine (0.6-1.2) mg/dl BUN/Creatinine Ratio (10-20) Glucose (70-99(Fasting)) mg/dl POC Glucose (70-99) mg/dl Troponin I High Sens (0-14) pg/ml B-Natriuretic Peptide 227 H (0-100) pg/ml Urine Appearance Turbid A (Clear) Urine Protein 1+ H (Negative) Urine Blood 2+ H (Negative) Ur Leukocyte Esterase 1+ H (Negative) Urine WBC (Auto) 10-30 H (0-5) /hpf U Hyaline Cast (Auto) 5-10 H (0-5) /lpf U Epithel Cells (Auto) >30 H (0-5) /lpf Urine Bacteria (Auto) 1+ H (Negative) 02/09/22 02/09/22 02/09/22 Range/Units 09:23 10:08 11:35 RBC (3.93-5.22) M/uL Hgb (12.0-16.0) g/dl POC Hgb 11.2 L 10.9 L (12.0-16.0) g/dl POC Hct 33 L 32 L (37-47) % MCV (80.0-100.0) fL MCHC (32.0-36.0) g/dL RDW Std Deviation (36.4-46.3) fL Lymph # (Auto) (1.2-3.4) K/uL Immature Gran # (Auto) (0.00-0.02) K/uL PT (9.0-12.0) Seconds INR (0.9-1.1) POC pH 7.13 L* 7.13 L* (7.35-7.45) POC pCO2 128 H > 115 H (35-46) mmHg POC pO2 63 L (80-95) mmHg POC HCO3 43 H 43 H (19-24) ousmane/L POC Total CO2 47 H* > 40 H* (24-31) mmol/L POC Base Excess 13.0 H 13.0 H (-9-1.8) ousmane/L POC ABG O2 Sat 80.0 L (90-95) % POC Potassium 6.5 H* 6.5 H* (3.3-5.0) mmol/L Potassium (3.5-5.1) mmol/L Chloride (98-107) mmol/L Carbon Dioxide (21-32) mmol/L Anion Gap (3-11) BUN (6-23) mg/dl Creatinine (0.6-1.2) mg/dl BUN/Creatinine Ratio (10-20) Glucose (70-99(Fasting)) mg/dl POC Glucose 237 H (70-99) mg/dl Troponin I High Sens (0-14) pg/ml B-Natriuretic Peptide (0-100) pg/ml Urine Appearance (Clear) Urine Protein (Negative) Urine Blood (Negative) Ur Leukocyte Esterase (Negative) Urine WBC (Auto) (0-5) /hpf U Hyaline Cast (Auto) (0-5) /lpf U Epithel Cells (Auto) (0-5) /lpf Urine Bacteria (Auto) (Negative) Diagnostic Findings Chest X-Ray 02/09/22 08:51 XR chest 1V portable CLINICAL HISTORY: Sepsis. COMPARISON STUDY: Chest CT July 25, 2021. Chest radiograph July 26, 2021. FINDINGS: Median sternotomy wires are noted. Cardiomegaly is unchanged. There is no pneumothorax. There are possible trace bilateral pleural effusions. This exam is compromised by suboptimal penetration related to portable technique. Mild interstitial thickening. Bibasilar opacities are noted. IMPRESSION: 1. Cardiomegaly. Pulmonary vascular congestion with possible mild pulmonary edema and small bilateral pleural effusions. 3. Bibasilar opacities which could reflect an infectious process or atelectasis. Radiographic follow-up is recommended. ACT 112: Negative or not required by law. Electronically signed by: Earl Wallace M.D. 02/09/2022 10:07 AM Chest X-Ray 02/09/22 11:00 XR chest 1V portable CLINICAL HISTORY: post intubation TECHNIQUE: Single frontal radiograph of the chest was obtained. Comparison: Comparison is made to chest radiograph 02/09/2022 FINDINGS: Exam is limited by underpenetration. Median sternotomy wires are unchanged. The endotracheal tube terminates 22 mm from the che. Cardiomegaly is noted. Bilateral lower lung predominant airspace opacities are seen. There is a small left pleural effusion. IMPRESSION: 1. Endotracheal tube terminates 2.2 cm from the che, satisfactory position. 2. Bilateral lower lung predominant airspace opacities which may represent atelectasis, pneumonia, and/or aspiration. Stable cardiomegaly. 3. Small left pleural effusion. ACT 112: Negative or not required by law. Electronically signed by: Jese Oviedo M.D. 02/09/2022 11:23 AM ECG Additional Comments: Sinus tachycardia Right bundle branch block T wave abnormality, consider inferior ischemia Abnormal ECG When compared with ECG of 28-JUL-2021 08:44, Premature atrial complexes are no longer Present T wave inversion no longer evident in Anterior leads. Code Status & VTE Plan Code Status Full Code. Critical Care Time Critical Care Time: Yes Total Critical Care Time: 30 Supervising Physician Co-Signing Physician Notes PA Supervision Note: I personally saw and examined the patient. I verified all marquez points and agree with MELANIA Boateng with the following exceptions and/or additions: S-Pt intubated and sedated when I saw her. ER notes and history reviewed. it seems she was found unresponsive at her detention after recently being treated for a UTI with Bactrim. Was also significantly hypoxic with pox in he 60s. Was acidotic and hypercapnic unresponsive to BiPAP tx in ER and was intubated. Also found to have hyperkalemia and CIERA, is making urine. In the ER, she received IV Cefepime, Vanco, and 1 L NS as well as treatment fo her hyperkalemia with calcium gluconate, sodium bicarbonate IV, and 10 units of regular insulin IV along with D50. O- Vitals reviewed Gen: [morbidly obese, sedated] HEENT: [ETT in place, no abrasions or facial swelling, with obese neck] CV: [RRR no mgr nl S1S2] Pulm: [CTAB no wcr] Abd: [+BS soft, obese, NT ND no masses Ext: [3+ pitting edema, chronic venous stasis changes] Skin: [dry skin on legs, pinkish color from venous stasis] Neuro: [sedated] Labs, Rads, and ECG reviewed A/P-76 yo female here with acute on chronic hypercapnic and hypoxic respiratory failure, CIERA, hyperkalemia, and recent UTI, possible sepsis Intubated and sedated, on propofol -vent management as per ICU but acidosis is improving on abg CV-sinus rhythm, elevated trop demand ischemia-trend trop and consider ECHO if becomes significantly elevated, ECG with nonspecific changes. Hold home lisinopril, atorvastatin Continue to follow renal function and potassium levels, would add on IVFs ongoing-hyperkalemia and CIERA could be from Bactrim use. Hold lisinopril Treat for UTI empirically with Cefepime-added back on MRSA swab neg, possible bilat PNA on CXR-continue cefepime and linezolid DM management with insulin-add on SSI Novolog, hold home Lantus for now, check A1C GI-keep NPO, OGT in place DVT proph-add heparin SQ PG Care Time/CCT Total # of Minutes Spent Total Time Spent with Patient: Total time spent is greater than 50% in coordination of care (as documented) at patient's floor/unit and/or counseling patient: Critical Care Time: Yes Total Critical Care Time: 30 Coding Level of Care Code 02929 Initial Inpt Care Lvl 3 Diagnoses Acute on chronic respiratory failure with hypoxia and hypercapnia J96.21; J96.22 Hyperkalemia E87.5 [id number] kidney injury N17.9; N18.9 Demand ischemia of myocardium I24.8 Anemia D64.9 DMII (diabetes mellitus, type 2) E11.9 Morbid obesity E66.01 Additional Codes Critical Care Time - Critical Care Time: Yes ([id number])
[2022-02-09] MEDS ORDERED: SODIUM CHLORIDE 0.9% 1000ML 1,000 ML IV ONE (11:47)
[2022-02-09 11:50] LABS: iSTAT Arterial Blood Gas HCO3 40 meg/L (19-24); iSTAT Arterial Blood Gas pCO2 74 mmHg (35-46); iSTAT Arterial Blood Gas pH 7.34 (7.35-7.45); iSTAT Arterial Blood Gas pO2 85 mmHg (80-95); iSTAT Carbon Dioxide > 40 mmol/L (24-31); iSTAT Hematocrit 30 % (37-47); iSTAT Hemoglobin 10.2 g/dl (12.0-16.0); iSTAT Potassium 5.6 mmol/L (3.3-5.0); iSTAT Sodium 138 mmol/L (135-144)
[2022-02-09] MEDS ORDERED: ICU PROTOCOL FOR HYPERGLYCEMIA PRN (12:46)
[2022-02-09] MEDS: FAMOTIDINE 20 MG in SYRINGE 3 ML IV SCH (13:41)
[2022-02-09] MEDS ORDERED: LINEZOLID 600 MG/300 ML BAG IV SCH (14:00)
[2022-02-09 14:12] LABS: BUN Creatinine Ratio 21.8 (10-20); Calcium 8.6 mg/dl (8.5-10.1); Est GFR (African American) 40.9 ml/min; Est GFR (Non-African American) 35.3 ml/min; Potassium 5.9 mmol/L (3.5-5.1)
[2022-02-09 14:42] LABS: iSTAT Allen Test Pass; iSTAT Art Bld Gas pCO2 Correct 46 mmHg (35-46); iSTAT Art Bld Gas pH Corrected 7.515 (7.35-7.45); iSTAT Arterial Blood Gas HCO3 37 meg/L (19-24); iSTAT Arterial Blood Gas pCO2 46 mmHg (35-46); iSTAT Arterial Blood Gas pH 7.51 (7.35-7.45); iSTAT Arterial Blood Gas pO2 66 mmHg (80-95); iSTAT Arterial Blood Gas pO2 C 65; iSTAT Carbon Dioxide 38 mmol/L (24-31); iSTAT FiO2 40 %; iSTAT Hematocrit 29 % (37-47); iSTAT Hemoglobin 9.9 g/dl (12.0-16.0); iSTAT Potassium 5.9 mmol/L (3.3-5.0); iSTAT Site R Radial; iSTAT Sodium 140 mmol/L (135-144)
--- NOTE | 2022-02-09 15:46 | Emergency Department Note ---
Impression & Plan Hypoxia, Acute hypercapnic respiratory failure, Acute hyperkalemia, Acute respiratory acidosis, AMS (altered mental status) ED Provider Note INFORMANT: EMS ED PROVIDER(S): Bucky Dudley MD CHIEF COMPLAINT: Decreased mental status PLAN: Disposition: Admitted Condition: Critical Outpatient prescription management: none Referral: None MEDICAL DECISION MAKING: Patient presented because of decreased mental status. She was being treated for UTI. This was concerning for possible worsening infection. Patient was also found to be hypoxic. She was placed on a oxime mask and the hypoxia resolved. The patient's mental status was still off. She also had significant edema. This raised concerns about cardiac etiologies as well. Patient was started on BiPAP. An ABG was performed. Patient was found to be hyperkalemic and hypercarbic along with acidotic. Her ECG showed a sinus tachycardia with some inferior T wave inversions. The patient had an unremarkable CBC except for mild anemia. Lactate was negative and urinalysis was negative. Patient's BNP and troponin were minimally elevated. Chest x-ray shows consolidation versus atelectasis versus edema. Patient was treated with IV cefepime and vancomycin. The patient did not improve on repeat ABG with the BiPAP. Mental status is still off. She was maintaining her saturations. Blood pressure was borderline low. At this point she cannot give any reasonable input to her situation. I did finally get in touch with her son Felipe. I discussed the case with him and he stated that family and the patient have no objections to any life-saving measures. At this point the patient was transition to the resuscitation bay and was intubated as noted below. Patient was treated for hyperkalemia with IV i nsulin, glucose, bicarbonate and calcium. A repeat ABG was performed and showed improvement of the acidosis. Patient still mildly hypercarbic. Hyperkalemia improved as well. Patient was given multiple doses of fentanyl and Versed for sedation. She was also started on propofol drip. I did consult with critical care, Dr. Shepherd. He agreed with the treatment so far and will consult for critical care management. [facility] The patient will be admitted to the ICU for further management. Triage Nursing notes reviewed and agree them. Vital Signs: reviewed and remarkable for hypoxia Differential diagnosis: Respiratory failure, sepsis, UTI, pneumonia, metabolic, electrolyte abnorm alities, cardiac sources, intracerebral event, toxicologic, neurologic, as well as other pathologies. Diagnostics interpreted by me: ECG: Twelve-lead ECG reveals a sinus tachycardia at 101 bpm. Right bundle branch block. Inferior T wave inversions. No ST elevation. No PVCs. Cardiac Monitoring: Cardiac monitoring ordered by me: The patient was placed on continuous cardiac monitoring and observed. It revealed a normal sinus rhythm at 89 beats per minute without ectopy or evidence of dysrhythmia. Imaging studies: Chest x-rays as noted below. HPI: The patient is a 76 year old female who presents to the Emergency Room from [facility] because of decreased responsiveness. This started today and is noted as the patient was oriented to name only and was hypotensive. Patient is unable to give any additional details. She was being treated for a UTI with Bactrim most recently. The patient has been given no medication prehospital for relieving factors. History is limited secondary to the patient's altered mental status. ROS: See above HPI for pertinent positives & negatives. Limited secondary to altered mental status PAST MEDICAL HISTORY:See Below , UTI, diabetes, CKD PAST SURGICAL HISTORY:See Below, FAMILY HISTORY:See Below SOCIAL HISTORY:See Below, resides at [facility] HOME MEDICATIONS:See Below ALLERGIES:See Below VITALS:See Below PHYSICAL EXAMINATION: GENERAL: Lethargic. Sleepy but opening eyes to voice. Not following commands. HENT: Normocephalic, atraumatic. Oropharynx unremarkable. EYES: Normal conjunctiva. Sclera non-icteric. NECK: Inspection normal. Non-tender. Supple. No nuchal rigidity. FROM. No masses. RESPIRATORY: Diminished bilaterally. No wheezes. Few scattered rales. Increased respiratory effort. CARDIAC: Normal rate. Normal rhythm. No murmurs. No rubs. Extremities warm and well perfused. Pulses equal. No JVD. GI: Soft, non-distended. No tenderness to palpation. No rebound or guarding. No masses. RECTAL: Deferred. MUSCULOSKELETAL: Atraumatic. Chest examination reveals no tenderness. The back is symmetrical on inspection without obvious abnormality. There is no CVA tenderness to palpation. No joint edema. LOWER EXTREMITIES: Calves are equal size bilaterally and non-tender. 2-3+ edema. No discoloration. NEURO: Altered sensorium. Not following commands. SKIN: No rash or jaundice noted. CRITICAL CARE: I have personally spent greater than 80 minutes of critical care time in the direct management of this patient. This includes bedside care, interpretation of diagnostic studies, and testing, discussion with consultants, and family members, and other required patient management activities. These minutes are in excess of all separately billable procedures. INTUBATION: Endotracheal Intubation Indication respiratory failure The patient was on 100% oxygen via NRB prior to the procedure. Suction, airway equipment, RSI drugs, respiratory equipment, and appropriate personnel were prepared prior to the initiation of the procedure. A time out was taken. Induction was performed with etomidate. After observing the clinical benefit of the medications, the airway was easily visualized utilizing a glide scope. A 7.5size ETT tube was placed atraumatically to 24cm using standard technique. The cuff inflated without signs of malfunction. There were bilateral breath sounds, positive colormetric change, no gastric sounds, a good capnography waveform, and post procedure pulse oximetry was 98%. Post intubation sedation was administered using fentanyl, Versed, and propofol drips. There were no complications. Bucky Dudley MD Past Med/Surg History Medical History Aortic valve stenosis CKD (chronic kidney disease) stage 3, GFR 30-59 ml/min Diabetes Diastolic CHF Dyslipidemia GERD (gastroesophageal reflux disease) HTN (hypertension) Morbid obesity with BMI of 50.0-59.9, adult Obstructive sleep apnea Paroxysmal A-fib Pulmonary HTN Vitamin D deficiency Surgical History History of cardiac cath Hx of total knee arthroplasty S/P AVR Family History Father Cancer pancreatic cancer Social History Smoking Status: Never smoker Second Hand Exposure: No; Hx Alcohol Use: No Hx Substance Use: No Preferred Language: [place] Islander Communication Ability: Effective Shipper Required: No Beliefs That Will Affect Care: None marital status: Current Living Situation: Assisted Current Living Situation Comment: lives at home with son Other Information That Helps Us Care for You: No Feels Safe at Home: Declines to Answer Assistive Devices: CPAP and Oxygen - Continuous Allergies Allergies Allergy/AdvReac Type Severity Reaction Status Date / Time No Known Allergies Allergy Mild Verified 07/23/21 18:29 Home Meds Home Medications Medication Instructions Recorded Confirmed atorvastatin 20 mg tablet (Lipitor) 20 mg PO QPM 04/08/20 02/09/22 ferrous sulfate 325 mg (65 mg 325 mg PO DAILY 04/08/20 02/09/22 iron) tablet insulin regular human 100 unit/mL 10 unit subcut AC 07/23/21 02/09/22 (3 mL) subcutaneous pen (Novolin R Flexpen) multivitamin 1 tab PO DAILY 07/23/21 02/09/22 omega 8-hle-cfc-fish oil 1,000 mg 1 cap PO BIDM 07/23/21 02/09/22 (120 mg-180 mg) capsule (Fish Oil) insulin glargine 100 unit/mL (3 50 unit subcut QPM 08/11/21 02/09/22 mL) subcutaneous pen (Lantus Solostar U-100 Insulin) lisinopril 5 mg tablet 5 mg PO DAILY 08/11/21 02/09/22 sulfamethoxazole 800 1 tab PO Q12 UTI 02/09/22 02/09/22 mg-trimethoprim 160 mg tablet Previous Rx's Medication Instructions Recorded polyethylene glycol 3350 17 gram 17 g PO DAILY PRN constipation #30 08/24/21 oral powder packet (Miralax) ea Results & Data (ED) Vital Signs Vital Signs - 24 hr 02/09/22 09:04 02/09/22 09:04 02/09/22 09:00 Temperature 37.3 C Temperature Source Oral Pulse Rate 98 H Pulse Rate [Apical] Pulse Rate from SpO2 Sensor Pulse Rhythm Regular Pulse Strength Normal Respiratory Rate 28 H Respiratory Effort / Characteristics Spontaneous Moaning Respiratory Depth Normal Respiratory Pattern Regular Blood Pressure 128/71 Blood Pressure [Right Arm] Blood Pressure Mean 90 Blood Pressure Mean [Right Arm] Blood Pressure Position Lying Blood Pressure Position [Right Arm] Pulse Oximetry 97 97 62 L Oxygen Delivery Method Oxymask Oxymask Room Air Oxygen Flow Rate 8 8 Fraction of Inspired Oxygen SaO2/FiO2 Ratio Sepsis Recent Fever Within 48 Hours No Sepsis New/Unexplained Change in Mental Status Yes Sepsis Action Taken by Nursing Previously Notified End-Tidal CO2 02/09/22 08:58 02/09/22 09:00 02/09/22 09:14 Temperature Temperature Source Pulse Rate 100 H 100 H 97 H Pulse Rate [Apical] Pulse Rate from SpO2 Sensor 99 H 100 H 98 H Pulse Rhythm Pulse Strength Respiratory Rate 29 H 18 31 H Respiratory Effort / Characteristics Respiratory Depth Respiratory Pattern Blood Pressure Blood Pressure [Right Arm] Blood Pressure Mean Blood Pressure Mean [Right Arm] Blood Pressure Position Blood Pressure Position [Right Arm] Pulse Oximetry 96 97 96 Oxygen Delivery Method Oxygen Flow Rate Fraction of Inspired Oxygen SaO2/FiO2 Ratio Sepsis Recent Fever Within 48 Hours Sepsis New/Unexplained Change in Mental Status Sepsis Action Taken by Nursing End-Tidal CO2 02/09/22 09:14 02/09/22 09:15 02/09/22 09:20 Temperature Temperature Source Pulse Rate 97 H 88 Pulse Rate [Apical] Pulse Rate from SpO2 Sensor 102 H Pulse Rhythm Pulse Strength Respiratory Rate 31 H 22 Respiratory Effort / Characteristics Spontaneous Respiratory Depth Respiratory Pattern Regular Blood Pressure 128/71 Blood Pressure [Right Arm] Blood Pressure Mean 90 Blood Pressure Mean [Right Arm] Blood Pressure Position Blood Pressure Position [Right Arm] Pulse Oximetry 97 94 Oxygen Delivery Method Oxygen Flow Rate Fraction of Inspired Oxygen 35 SaO2/FiO2 Ratio Sepsis Recent Fever Within 48 Hours Sepsis New/Unexplained Change in Mental Status Sepsis Action Taken by Nursing End-Tidal CO2 02/09/22 09:30 02/09/22 09:30 02/09/22 09:45 Temperature Temperature Source Pulse Rate 90 93 H Pulse Rate [Apical] Pulse Rate from SpO2 Sensor 92 H 92 H Pulse Rhythm Pulse Strength Respiratory Rate 20 19 Respiratory Effort / Characteristics Respiratory Depth Respiratory Pattern Blood Pressure 103/64 Blood Pressure [Right Arm] Blood Pressure Mean 77 Blood Pressure Mean [Right Arm] Blood Pressure Position Blood Pressure Position [Right Arm] Pulse Oximetry 95 91 Oxygen Delivery Method Oxygen Flow Rate Fraction of Inspired Oxygen SaO2/FiO2 Ratio Sepsis Recent Fever Within 48 Hours Sepsis New/Unexplained Change in Mental Status Sepsis Action Taken by Nursing End-Tidal CO2 02/09/22 10:00 02/09/22 10:03 02/09/22 10:03 Temperature Temperature Source Pulse Rate 82 82 Pulse Rate [Apical] Pulse Rate from SpO2 Sensor 82 83 Pulse Rhythm Pulse Strength Respiratory Rate 20 22 Respiratory Effort / Characteristics Respiratory Depth Respiratory Pattern Blood Pressure 106/62 Blood Pressure [Right Arm] Blood Pressure Mean 76 Blood Pressure Mean [Right Arm] Blood Pressure Position Blood Pressure Position [Right Arm] Pulse Oximetry 95 91 Oxygen Delivery Method Oxygen Flow Rate Fraction of Inspired Oxygen SaO2/FiO2 Ratio Sepsis Recent Fever Within 48 Hours Sepsis New/Unexplained Change in Mental Status Sepsis Action Taken by Nursing End-Tidal CO2 02/09/22 10:15 02/09/22 10:30 02/09/22 10:31 Temperature Temperature Source Pulse Rate 81 74 63 Pulse Rate [Apical] Pulse Rate from SpO2 Sensor 80 74 63 Pulse Rhythm Pulse Strength Respiratory Rate Respiratory Effort / Characteristics Respiratory Depth Respiratory Pattern Blood Pressure Blood Pressure [Right Arm] Blood Pressure Mean Blood Pressure Mean [Right Arm] Blood Pressure Position Blood Pressure Position [Right Arm] Pulse Oximetry 95 94 95 Oxygen Delivery Method Oxygen Flow Rate Fraction of Inspired Oxygen SaO2/FiO2 Ratio Sepsis Recent Fever Within 48 Hours Sepsis New/Unexplained Change in Mental Status Sepsis Action Taken by Nursing End-Tidal CO2 02/09/22 10:31 02/09/22 11:11 02/09/22 10:40 Temperature Temperature Source Pulse Rate Pulse Rate [Apical] 71 Pulse Rate from SpO2 Sensor Pulse Rhythm Pulse Strength Respiratory Rate 18 Respiratory Effort / Characteristics Respiratory Depth Normal Respiratory Pattern Blood Pressure 96/48 L 104/57 L Blood Pressure [Right Arm] 149/66 H Blood Pressure Mean 64 72 Blood Pressure Mean [Right Arm] 93 Blood Pressure Position Blood Pressure Position [Right Arm] Lying Pulse Oximetry 98 Oxygen Delivery Method Mechanical Vent Oxygen Flow Rate Fraction of Inspired Oxygen 50 SaO2/FiO2 Ratio 196 Sepsis Recent Fever Within 48 Hours Sepsis New/Unexplained Change in Mental Status Sepsis Action Taken by Nursing End-Tidal CO2 02/09/22 10:40 02/09/22 10:45 02/09/22 10:45 Temperature Temperature Source Pulse Rate 83 80 Pulse Rate [Apical] Pulse Rate from SpO2 Sensor 83 80 Pulse Rhythm Pulse Strength Respiratory Rate 18 12 Respiratory Effort / Characteristics Respiratory Depth Respiratory Pattern Blood Pressure 98/52 L Blood Pressure [Right Arm] Blood Pressure Mean 67 Blood Pressure Mean [Right Arm] Blood Pressure Position Blood Pressure Position [Right Arm] Pulse Oximetry 93 96 Oxygen Delivery Method Oxygen Flow Rate Fraction of Inspired Oxygen SaO2/FiO2 Ratio Sepsis Recent Fever Within 48 Hours Sepsis New/Unexplained Change in Mental Status Sepsis Action Taken by Nursing End-Tidal CO2 02/09/22 10:56 02/09/22 10:56 02/09/22 11:00 Temperature Temperature Source Pulse Rate 87 97 H Pulse Rate [Apical] Pulse Rate from SpO2 Sensor 87 97 H Pulse Rhythm Pulse Strength Respiratory Rate 16 19 Respiratory Effort / Characteristics Respiratory Depth Respiratory Pattern Blood Pressure 118/64 Blood Pressure [Right Arm] Blood Pressure Mean 82 Blood Pressure Mean [Right Arm] Blood Pressure Position Blood Pressure Position [Right Arm] Pulse Oximetry 100 99 Oxygen Delivery Method Mechanical Vent Oxygen Flow Rate Fraction of Inspired Oxygen SaO2/FiO2 Ratio Sepsis Recent Fever Within 48 Hours Sepsis New/Unexplained Change in Mental Status Sepsis Action Taken by Nursing End-Tidal CO2 02/09/22 11:12 02/09/22 11:20 02/09/22 11:31 Temperature Temperature Source Pulse Rate 66 Pulse Rate [Apical] 71 67 Pulse Rate from SpO2 Sensor Pulse Rhythm Pulse Strength Respiratory Rate 27 H 19 16 Respiratory Effort / Characteristics Respiratory Depth Normal Respiratory Pattern Blood Pressure Blood Pressure [Right Arm] 127/57 L 94/59 L Blood Pressure Mean Blood Pressure Mean [Right Arm] 80 70 Blood Pressure Position Blood Pressure Position [Right Arm] Lying Lying Pulse Oximetry 100 99 100 Oxygen Delivery Method Mechanical Vent Mechanical Vent Oxygen Flow Rate Fraction of Inspired Oxygen 40 SaO2/FiO2 Ratio Sepsis Recent Fever Within 48 Hours Sepsis New/Unexplained Change in Mental Status Sepsis Action Taken by Nursing End-Tidal CO2 89 Laboratory Data Result diagrams: 02/09/22 09:05 02/09/22 13:22 Lab Results 02/09/22 02/09/22 02/09/22 Range/Units 08:57 09:05 09:05 WBC 6.79 (4.8-10.8) K/ul RBC 3.55 L (3.93-5.22) M/uL Hgb 10.3 L (12.0-16.0) g/dl POC Hgb (12.0-16.0) g/dl Hct 36.4 (34.1-44.9) % POC Hct (37-47) % MCV 102.5 H (80.0-100.0) fL MCH 29.0 (25.0-34.0) pg MCHC 28.3 L (32.0-36.0) g/dL RDW Std Deviation 52.9 H (36.4-46.3) fL RDW Coeff of Jacqueline 13.9 (11.5-14.5) % Plt Count 285 (130-400) K/uL MPV 9.4 (9.4-12.3) fL Immature Gran % (Auto) 0.7 % Neut % (Auto) 81.3 % Lymph % (Auto) 11.9 % Boundary % (Auto) 5.6 % Eos % (Auto) 0.1 % Baso % (Auto) 0.4 % Neut # (Auto) 5.51 (1.4-6.5) K/uL Lymph # (Auto) 0.81 L (1.2-3.4) K/uL Boundary # (Auto) 0.38 (0.24-0.82) K/uL Eos # (Auto) 0.01 (0-0.50) K/uL Baso # (Auto) 0.03 (0-0.2) K/uL Immature Gran # (Auto) 0.05 H (0.00-0.02) K/uL Polychromasia 1+ Hypochromasia Present Basophilic Stippling 1+ Stomatocytes 2+ PT (9.0-12.0) Seconds INR (0.9-1.1) APTT (21.0-31.0) Seconds PTT Ratio Specimen Type POC pH (7.35-7.45) POC pCO2 (35-46) mmHg POC pO2 (80-95) mmHg POC HCO3 (19-24) ousmane/L POC Total CO2 (24-31) mmol/L POC Base Excess (-9-1.8) ousmane/L POC ABG O2 Sat (90-95) % Jose Test POC Sodium (135-144) mmol/L Sodium 138 (136-145) mmol/L POC Potassium (3.3-5.0) mmol/L Potassium 6.9 H* (3.5-5.1) mmol/L Chloride 97 L (98-107) mmol/L Carbon Dioxide 42 H* (21-32) mmol/L Anion Gap -1 L (3-11) BUN 30 H (6-23) mg/dl Creatinine 1.32 H (0.6-1.2) mg/dl Est Cr Clr Drug Dosing Not Reportable Est GFR ( Amer) 44.7 ml/min Est GFR (Non-Af Amer) 38.5 ml/min BUN/Creatinine Ratio 22.7 H (10-20) Glucose 225 H (70-99(Fasting)) mg/dl POC Glucose 223 H (70-99) mg/dl Lactate (0.4-2.0) mmol/L Calcium 9.3 (8.5-10.1) mg/dl Magnesium 1.7 (1.7-2.4) mg/dl Total Bilirubin 0.3 (0.2-1.0) mg/dl Direct Bilirubin 0.1 (0-0.2) mg/dl AST 14 (13-39) U/L ALT 16 (7-52) U/L Alkaline Phosphatase 85 (34-104) U/L Troponin I High Sens 43.7 H (0-14) pg/ml B-Natriuretic Peptide (0-100) pg/ml Total Protein 8.1 (6.0-8.3) gm/dl Albumin 3.7 (3.4-5.0) gm/dl Procalcitonin (0-0.5) ng/ml Urine Color Urine Appearance (Clear) Urine pH (4.5-7.5) Ur Specific [place] (1.000-1.030) Urine Protein (Negative) Urine Glucose (UA) (Negative) Urine Ketones (Negative) Urine Blood (Negative) Urine Nitrite (Negative) Urine Bilirubin (Negative) Urine Urobilinogen (Negative) Ur Leukocyte Esterase (Negative) Urine WBC (Auto) (0-5) /hpf Urine RBC (Auto) (0-4) /hpf U Hyaline Cast (Auto) (0-5) /lpf U Epithel Cells (Auto) (0-5) /lpf Urine Bacteria (Auto) (Negative) Urine Yeast 02/09/22 02/09/22 02/09/22 Range/Units 09:05 09:05 09:05 WBC (4.8-10.8) K/ul RBC (3.93-5.22) M/uL Hgb (12.0-16.0) g/dl POC Hgb (12.0-16.0) g/dl Hct (34.1-44.9) % POC Hct (37-47) % MCV (80.0-100.0) fL MCH (25.0-34.0) pg MCHC (32.0-36.0) g/dL RDW Std Deviation (36.4-46.3) fL RDW Coeff of Jacqueline (11.5-14.5) % Plt Count (130-400) K/uL MPV (9.4-12.3) fL Immature Gran % (Auto) % Neut % (Auto) % Lymph % (Auto) % Boundary % (Auto) % Eos % (Auto) % Baso % (Auto) % Neut # (Auto) (1.4-6.5) K/uL Lymph # (Auto) (1.2-3.4) K/uL Boundary # (Auto) (0.24-0.82) K/uL Eos # (Auto) (0-0.50) K/uL Baso # (Auto) (0-0.2) K/uL Immature Gran # (Auto) (0.00-0.02) K/uL Polychromasia Hypochromasia Basophilic Stippling Stomatocytes PT 13.0 H (9.0-12.0) Seconds INR 1.2 H (0.9-1.1) APTT 26.5 (21.0-31.0) Seconds PTT Ratio 1.0 Specimen Type POC pH (7.35-7.45) POC pCO2 (35-46) mmHg POC pO2 (80-95) mmHg POC HCO3 (19-24) ousmane/L POC Total CO2 (24-31) mmol/L POC Base Excess (-9-1.8) ousmane/L POC ABG O2 Sat (90-95) % Jose Test POC Sodium (135-144) mmol/L Sodium (136-145) mmol/L POC Potassium (3.3-5.0) mmol/L Potassium (3.5-5.1) mmol/L Chloride (98-107) mmol/L Carbon Dioxide (21-32) mmol/L Anion Gap (3-11) BUN (6-23) mg/dl Creatinine (0.6-1.2) mg/dl Est Cr Clr Drug Dosing Est GFR ( Amer) ml/min Est GFR (Non-Af Amer) ml/min BUN/Creatinine Ratio (10-20) Glucose (70-99(Fasting)) mg/dl POC Glucose (70-99) mg/dl Lactate 0.8 (0.4-2.0) mmol/L Calcium (8.5-10.1) mg/dl Magnesium (1.7-2.4) mg/dl Total Bilirubin (0.2-1.0) mg/dl Direct Bilirubin (0-0.2) mg/dl AST (13-39) U/L ALT (7-52) U/L Alkaline Phosphatase (34-104) U/L Troponin I High Sens (0-14) pg/ml B-Natriuretic Peptide (0-100) pg/ml Total Protein (6.0-8.3) gm/dl Albumin (3.4-5.0) gm/dl Procalcitonin < 0.05 (0-0.5) ng/ml Urine Color Urine Appearance (Clear) Urine pH (4.5-7.5) Ur Specific [place] (1.000-1.030) Urine Protein (Negative) Urine Glucose (UA) (Negative) Urine Ketones (Negative) Urine Blood (Negative) Urine Nitrite (Negative) Urine Bilirubin (Negative) Urine Urobilinogen (Negative) Ur Leukocyte Esterase (Negative) Urine WBC (Auto) (0-5) /hpf Urine RBC (Auto) (0-4) /hpf U Hyaline Cast (Auto) (0-5) /lpf U Epithel Cells (Auto) (0-5) /lpf Urine Bacteria (Auto) (Negative) Urine Yeast 02/09/22 02/09/22 02/09/22 Range/Units 09:14 09:17 09:23 WBC (4.8-10.8) K/ul RBC (3.93-5.22) M/uL Hgb (12.0-16.0) g/dl POC Hgb 11.2 L (12.0-16.0) g/dl Hct (34.1-44.9) % POC Hct 33 L (37-47) % MCV (80.0-100.0) fL MCH (25.0-34.0) pg MCHC (32.0-36.0) g/dL RDW Std Deviation (36.4-46.3) fL RDW Coeff of Jacqueline (11.5-14.5) % Plt Count (130-400) K/uL MPV (9.4-12.3) fL Immature Gran % (Auto) % Neut % (Auto) % Lymph % (Auto) % Boundary % (Auto) % Eos % (Auto) % Baso % (Auto) % Neut # (Auto) (1.4-6.5) K/uL Lymph # (Auto) (1.2-3.4) K/uL Boundary # (Auto) (0.24-0.82) K/uL Eos # (Auto) (0-0.50) K/uL Baso # (Auto) (0-0.2) K/uL Immature Gran # (Auto) (0.00-0.02) K/uL Polychromasia Hypochromasia Basophilic Stippling Stomatocytes PT (9.0-12.0) Seconds INR (0.9-1.1) APTT (21.0-31.0) Seconds PTT Ratio Specimen Type Arterial POC pH 7.13 L* (7.35-7.45) POC pCO2 128 H (35-46) mmHg POC pO2 85 (80-95) mmHg POC HCO3 43 H (19-24) ousmane/L POC Total CO2 47 H* (24-31) mmol/L POC Base Excess 13.0 H (-9-1.8) ousmane/L POC ABG O2 Sat (90-95) % Jose Test Acceptable POC Sodium 136 (135-144) mmol/L Sodium (136-145) mmol/L POC Potassium 6.5 H* (3.3-5.0) mmol/L Potassium (3.5-5.1) mmol/L Chloride (98-107) mmol/L Carbon Dioxide (21-32) mmol/L Anion Gap (3-11) BUN (6-23) mg/dl Creatinine (0.6-1.2) mg/dl Est Cr Clr Drug Dosing Est GFR ( Amer) ml/min Est GFR (Non-Af Amer) ml/min BUN/Creatinine Ratio (10-20) Glucose (70-99(Fasting)) mg/dl POC Glucose (70-99) mg/dl Lactate (0.4-2.0) mmol/L Calcium (8.5-10.1) mg/dl Magnesium (1.7-2.4) mg/dl Total Bilirubin (0.2-1.0) mg/dl Direct Bilirubin (0-0.2) mg/dl AST (13-39) U/L ALT (7-52) U/L Alkaline Phosphatase (34-104) U/L Troponin I High Sens (0-14) pg/ml B-Natriuretic Peptide 227 H (0-100) pg/ml Total Protein (6.0-8.3) gm/dl Albumin (3.4-5.0) gm/dl Procalcitonin (0-0.5) ng/ml Urine Color Dark Yellow Urine Appearance Turbid A (Clear) Urine pH 5.0 (4.5-7.5) Ur Specific [place] 1.018 (1.000-1.030) Urine Protein 1+ H (Negative) Urine Glucose (UA) Negative (Negative) Urine Ketones Negative (Negative) Urine Blood 2+ H (Negative) Urine Nitrite Negative (Negative) Urine Bilirubin Negative (Negative) Urine Urobilinogen Negative (Negative) Ur Leukocyte Esterase 1+ H (Negative) Urine WBC (Auto) 10-30 H (0-5) /hpf Urine RBC (Auto) 0-4 (0-4) /hpf U Hyaline Cast (Auto) 5-10 H (0-5) /lpf U Epithel Cells (Auto) >30 H (0-5) /lpf Urine Bacteria (Auto) 1+ H (Negative) Urine Yeast Not Reportable 02/09/22 02/09/22 02/09/22 Range/Units 10:08 11:35 11:36 WBC (4.8-10.8) K/ul RBC (3.93-5.22) M/uL Hgb (12.0-16.0) g/dl POC Hgb 10.9 L 10.2 L (12.0-16.0) g/dl Hct (34.1-44.9) % POC Hct 32 L 30 L (37-47) % MCV (80.0-100.0) fL MCH (25.0-34.0) pg MCHC (32.0-36.0) g/dL RDW Std Deviation (36.4-46.3) fL RDW Coeff of Jacqueline (11.5-14.5) % Plt Count (130-400) K/uL MPV (9.4-12.3) fL Immature Gran % (Auto) % Neut % (Auto) % Lymph % (Auto) % Boundary % (Auto) % Eos % (Auto) % Baso % (Auto) % Neut # (Auto) (1.4-6.5) K/uL Lymph # (Auto) (1.2-3.4) K/uL Bound[place] # (Auto) (0.24-0.82) K/uL Eos # (Auto) (0-0.50) K/uL Baso # (Auto) (0-0.2) K/uL Immature Gran # (Auto) (0.00-0.02) K/uL Polychromasia Hypochromasia Basophilic Stippling Stomatocytes PT (9.0-12.0) Seconds INR (0.9-1.1) APTT (21.0-31.0) Seconds PTT Ratio Specimen Type POC pH 7.13 L* 7.34 L (7.35-7.45) POC pCO2 > 115 H 74 H (35-46) mmHg POC pO2 63 L 85 (80-95) mmHg POC HCO3 43 H 40 H (19-24) ousmane/L POC Total CO2 > 40 H* > 40 H* (24-31) mmol/L POC Base Excess 13.0 H 14.0 H (-9-1.8) ousmane/L POC ABG O2 Sat 80.0 L 95.0 (90-95) % Jose Test POC Sodium 136 138 (135-144) mmol/L Sodium (136-145) mmol/L POC Potassium 6.5 H* 5.6 H (3.3-5.0) mmol/L Potassium (3.5-5.1) mmol/L Chloride (98-107) mmol/L Carbon Dioxide (21-32) mmol/L Anion Gap (3-11) BUN (6-23) mg/dl Creatinine (0.6-1.2) mg/dl Est Cr Clr Drug Dosing Est GFR ( Amer) ml/min Est GFR (Non-Af Amer) ml/min BUN/Creatinine Ratio (10-20) Glucose (70-99(Fasting)) mg/dl POC Glucose 237 H (70-99) mg/dl Lactate (0.4-2.0) mmol/L Calcium (8.5-10.1) mg/dl Magnesium (1.7-2.4) mg/dl Total Bilirubin (0.2-1.0) mg/dl Direct Bilirubin (0-0.2) mg/dl AST (13-39) U/L ALT (7-52) U/L Alkaline Phosphatase (34-104) U/L Troponin I High Sens (0-14) pg/ml B-Natriuretic Peptide (0-100) pg/ml Total Protein (6.0-8.3) gm/dl Albumin (3.4-5.0) gm/dl Procalcitonin (0-0.5) ng/ml Urine Color Urine Appearance (Clear) Urine pH (4.5-7.5) Ur Specific [place] (1.000-1.030) Urine Protein (Negative) Urine Glucose (UA) (Negative) Urine Ketones (Negative) Urine Blood (Negative) Urine Nitrite (Negative) Urine Bilirubin (Negative) Urine Urobilinogen (Negative) Ur Leukocyte Esterase (Negative) Urine WBC (Auto) (0-5) /hpf Urine RBC (Auto) (0-4) /hpf U Hyaline Cast (Auto) (0-5) /lpf U Epithel Cells (Auto) (0-5) /lpf Urine Bacteria (Auto) (Negative) Urine Yeast Administered Medications Propofol (Diprivan) 1,000 mg in 100 mls @ 17.46 mls/hr IV .Q5H44M [facility]; Protocol Stop: 02/12/22 11:14 Last Admin: 02/09/22 15:24 Dose: 25 mcg/kg/min, 21.8 mls/hr Documented By: JAIRON Co-signed By: ROLAND Titration: 02/09/22 15:24 Dose: 25 mcg/kg/min, 21.8 mls/hr Documented By: JAIRON Co-signed By: HAIMS Titration: 02/09/22 13:02 Dose: 25 mcg/kg/min, 21.8 mls/hr Documented By: Titration: 02/09/22 11:49 Dose: 15 mcg/kg/min, 13.1 mls/hr Documented By: Titration: 02/09/22 11:26 Dose: 25 mcg/kg/min, 21.8 mls/hr Documented By: Admin: 02/09/22 11:13 Dose: 20 mcg/kg/min, 17.5 mls/hr Documented By: LINDA Co-signed By: JEFE Famotidine 20 mg/ Syringe 5 mls @ 2.5 mls/min IV Q12H [facility] Stop: 03/11/22 12:59 Last Admin: 02/09/22 13:41 Dose: 2.5 mls/min Documented By: WRMarissa Discontinued Medications Dextrose (Dextrose 50% 50 Ml Syringe) 50 ml IV NOW ONE Stop: 02/09/22 10:42 Last Admin: 02/09/22 11:00 Dose: 50 ml Documented By: LINDA Etomidate (Etomidate 2 Mg/Ml 20 Ml Vial) 20 mg IV NOW ONE Stop: 02/09/22 10:43 Last Admin: 02/09/22 10:53 Dose: 20 mg Documented By: AM Fentanyl Citrate (Fentanyl Citrate 100 Mcg/2 Ml Vial) 50 mcg IV Q30M PRN PRN Reason: Agitation Stop: 02/23/22 11:01 Last Admin: 02/09/22 12:07 Dose: 50 mcg Documented By: Admin: 02/09/22 11:05 Dose: 50 mcg Documented By: LINDA Cefepime HCl (Maxipime) 2,000 mg in 20 mls @ 5 mls/min IV NOW STA; Protocol Stop: 02/09/22 09:44 Last Admin: 02/09/22 10:33 Dose: 5 mls/min Documented By: DELROY Calcium Gluconate () 1,000 mg in 60 mls @ 240 mls/hr IV NOW STA Stop: 02/09/22 10:55 Last Infusion: 02/09/22 11:38 Dose: 0 mls/hr Documented By: Admin: 02/09/22 10:59 Dose: 240 mls/hr Documented By: LINDA Sodium Chloride (Nss 1000ml) 1,000 mls @ 999 mls/hr IV .Q1H1M ONE Stop: 02/09/22 12:47 Last Infusion: 02/09/22 13:04 Dose: 0 mls/hr Documented By: Admin: 02/09/22 11:50 Dose: 999 mls/hr Documented By: LINDA Linezolid (Zyvox) 600 mg in 300 mls @ 200 mls/hr IV Q12H SIMEON Stop: 02/16/22 13:59 Last Infusion: 02/09/22 14:59 Dose: 0 mls/hr Documented By: Admin: 02/09/22 14:59 Dose: 200 mls/hr Documented By: ROLAND Insulin Human Regular (Novolin-R Insulin Per Unit Charge) 10 units IV NOW STA Stop: 02/09/22 10:42 Last Admin: 02/09/22 11:00 Dose: 10 units Documented By: LINDA Co-signed By: NA Midazolam HCl (Midazolam Hcl 1 Mg/Ml 2ml Vial) 2 mg IV Q10M PRN PRN Reason: Agitation Stop: 03/11/22 10:59 Last Admin: 02/09/22 12:10 Dose: 2 mg Documented By: Admin: 02/09/22 11:03 Dose: 2 mg Documented By: LINDA Miscellaneous (Rapid Sequence Induction Bag) Confirm Administered Dose 1 each .ROUTE .STK-MED ONE Stop: 02/09/22 10:42 Last Admin: 02/09/22 13:03 Dose: Not Given Documented By: JAIRON Arizaaneous (Stat Iv Infusion Titration Per Protocol) 1 each N/A NOW STA Stop: 02/09/22 11:10 Last Admin: 02/09/22 13:03 Dose: Not Given Documented By: JAIRON Propofol (Propofol Bolus From Bag) 20 mg IV Q5M PRN PRN Reason: Sedation Stop: 02/12/22 11:08 Last Admin: 02/09/22 11:29 Dose: 20 mg Documented By: LINDA Co-signed By: ROLAND(2) Admin: 02/09/22 11:18 Dose: 20 mg Documented By: LINDA Co-signed By: NRB Sodium Bicarbonate (Sodium Bicarb 8.4% Inj 50 Meq/50 Ml Syr) 50 meq IV NOW STA Stop: 02/09/22 10:42 Last Admin: 02/09/22 11:06 Dose: 50 meq Documented By: LINDA Imaging Data Radiologist's Impression: Chest X-Ray 02/09/22 08:51 XR chest 1V portable CLINICAL HISTORY: Sepsis. COMPARISON STUDY: Chest CT July 25, 2021. Chest radiograph July 26, 2021. FINDINGS: Median sternotomy wires are noted. Cardiomegaly is unchanged. There is no pneumothorax. There are possible trace bilateral pleural effusions. This exam is compromised by suboptimal penetration related to portable technique. Mild interstitial thickening. Bibasilar opacities are noted. IMPRESSION: 1. Cardiomegaly. Pulmonary vascular congestion with possible mild pulmonary edema and small bilateral pleural effusions. 3. Bibasilar opacities which could reflect an infectious process or atelectasis. Radiographic follow-up is recommended. ACT 112: Negative or not required by law. Electronically signed by: Earl Wallace M.D. 02/09/2022 10:07 AM Chest X-Ray 02/09/22 11:00 XR chest 1V portable CLINICAL HISTORY: post intubation TECHNIQUE: Single frontal radiograph of the chest was obtained. Comparison: Comparison is made to chest radiograph 02/09/2022 FINDINGS: Exam is limited by underpenetration. Median sternotomy wires are unchanged. The endotracheal tube terminates 22 mm from the che. Cardiomegaly is noted. Bilateral lower lung predominant airspace opacities are seen. There is a small left pleural effusion. IMPRESSION: 1. Endotracheal tube terminates 2.2 cm from the che, satisfactory position. 2. Bilateral lower lung predominant airspace opacities which may represent atelectasis, pneumonia, and/or aspiration. Stable cardiomegaly. 3. Small left pleural effusion. ACT 112: Negative or not required by law. Electronically signed by: Jese Oviedo M.D. 02/09/2022 11:23 AM Discharge Plan Visit Data Chief Complaint: Urinary Symptoms Stated Complaint: Lethargic, UTI ED Provider: Bucky Dudley Discharge Problem: Hypoxia, Acute hypercapnic respiratory failure, Acute hyperkalemia, Acute respiratory acidosis, AMS (altered mental status) Patient Disposition: Admitted As Inpatient Discharge Instructions Interventions: ED Discharge Assessment Last Done: 02/09/22 12:41
[2022-02-09] MEDS ORDERED: MIDAZOLAM HCL 5 MG/ML VIAL IV ONE (15:52)
[2022-02-09] MEDS ORDERED: fentaNYL citrate 100 MCG/2 ML VIAL IV ONE (15:52)
[2022-02-09] MEDS: LINEZOLID 600 MG/300 ML BAG IV SCH (16:25)
[2022-02-09 16:59] LABS: BUN Creatinine Ratio 23.5 (10-20); Creatinine Clr Calc Pharmacy 41.9 ml/min; Est GFR (African American) 38.6 ml/min; Est GFR (Non-African American) 33.3 ml/min; Potassium 5.5 mmol/L (3.5-5.1)
[2022-02-09] MEDS ORDERED: PNEUMOCOCCAL POLYSACCHARIDES 25 MCG/0.5 ML VIAL/SYR IM ONE (18:00)
[2022-02-09] MEDS ORDERED: GLUCOSE 10 TAB/TUBE PO PRN (20:34)
[2022-02-09] MEDS ORDERED: DEXTROSE 50% 50 ML SYRINGE IV PRN (20:34)
[2022-02-09] MEDS ORDERED: CARBOHYDRATES FOR HYPOGLYCEMIA PO PRN (20:34)
[2022-02-09] MEDS ORDERED: GLUCOSE 40% GEL 15 GM TUBE PO PRN (20:34)
[2022-02-09] MEDS ORDERED: GLUCAGON FOR INJ 1 MG VIAL SQ PRN (20:34)
[2022-02-09] MEDS: SODIUM CHLORIDE 0.9% 1000ML 1,000 ML IV SCH (20:44)
[2022-02-09] MEDS: CEFEPIME 2,000 MG in SYRINGE 0 ML IV SCH (20:53)
[2022-02-09] MEDS: HEPARIN SOD 5,000 UNIT/0.5 ML VIAL SQ SCH (22:18)
[2022-02-09 23:05] LABS: Calcium 9.1 mg/dl (8.5-10.1); Creatinine Clr Calc Pharmacy 41.6 ml/min; Est GFR (African American) 38.3 ml/min; Potassium 4.8 mmol/L (3.5-5.1)
--- NOTE | 2022-02-09 23:15 | Electrocardiogram Report ---
Test Reason : Blood Pressure : / mmHG Vent. Rate : 101 BPM Atrial Rate : 101 BPM P-R Int : 196 ms QRS Dur : 142 ms QT Int : 352 ms P-R-T Axes : 012 094 -18 degrees QTc Int : 456 ms Poor data quality, interpretation may be adversely affected Sinus tachycardia Right bundle branch block T wave abnormality, consider inferior ischemia Abnormal ECG When compared with ECG of 28-JUL-2021 08:44, Premature atrial complexes are no longer Present T wave inversion no longer evident in Anterior leads Confirmed by Rodrigo Nicholas ([id number]) on 02/09/2022 11:14:25 PM Referred By: Confirmed By:Rodrigo Nicholas
[2022-02-10] MEDS: INSULIN ASPART PER UNIT SC SCH ×5 (00:10→20:33)
[2022-02-10] MEDS: FAMOTIDINE 20 MG in SYRINGE 3 ML IV SCH ×2 (00:19→13:50)
[2022-02-10] MEDS: propofoL 1,000 MG/100 ML VIAL IV SCH ×7 (01:39→11:22)
[2022-02-10] MEDS: LINEZOLID 600 MG/300 ML BAG IV SCH (03:55)
[2022-02-10 04:34] LABS: Basophils # (auto) 0.03 K/uL (0-0.2); Basophils % (auto) 0.4 %; Eosinophils # (auto) 0.11 K/uL (0-0.50); Eosinophils % (auto) 1.6 %; Immature Granulocytes # (auto) 0.03 K/uL (0.00-0.02); Immature Granulocytes % (auto) 0.4 %; Lymphocytes # (auto) 1.35 K/uL (1.2-3.4); Mean Corpuscular Hemoglobin 29.2 pg (25.0-34.0); Mean Corpuscular Volume 97.4 fL (80.0-100.0); Mean Platelet Volume 9.9 fL (9.4-12.3); Monocytes # (auto) 0.49 K/uL (0.24-0.82); Monocytes % (auto) 7.2 %; Neutrophils # (auto) 4.75 K/uL (1.4-6.5); Neutrophils % (auto) 70.4 %; Nucleated RBC # (auto) 0.02 K/uL (0-0); Nucleated RBC % (auto) 0.3 %; Platelet Count 228 K/uL (130-400); RDW Coefficient of Variation 13.7 % (11.5-14.5); RDW Standard Deviation 48.9 fL (36.4-46.3); Red Blood Count 3.08 M/uL (3.93-5.22); White Blood Count 6.76 K/ul (4.8-10.8)
[2022-02-10 04:49] LABS: INR 1.4 (0.9-1.1); Partial Thromboplastin Ratio 0.9; Partial Thromboplastin Time 23.4 Seconds (21.0-31.0); Prothrombin Time 14.2 Seconds (9.0-12.0)
[2022-02-10] MEDS: HEPARIN SOD 5,000 UNIT/0.5 ML VIAL SQ SCH ×3 (05:35→21:13)
[2022-02-10] MEDS: SODIUM CHLORIDE 0.9% 1000ML 1,000 ML IV SCH ×2 (05:35→17:53)
[2022-02-10 05:50] LABS: iSTAT Allen Test Pass; iSTAT Art Bld Gas pCO2 Correct 42 mmHg (35-46); iSTAT Art Bld Gas pH Corrected 7.541 (7.35-7.45); iSTAT Arterial Blood Gas HCO3 36 meg/L (19-24); iSTAT Arterial Blood Gas pCO2 42 mmHg (35-46); iSTAT Arterial Blood Gas pH 7.54 (7.35-7.45); iSTAT Arterial Blood Gas pO2 73 mmHg (80-95); iSTAT Arterial Blood Gas pO2 C 73; iSTAT Carbon Dioxide 37 mmol/L (24-31); iSTAT FiO2 40 %; iSTAT Hematocrit 30 % (37-47); iSTAT Hemoglobin 10.2 g/dl (12.0-16.0); iSTAT Potassium 4.1 mmol/L (3.3-5.0); iSTAT Site L Radial; iSTAT Sodium 139 mmol/L (135-144)
[2022-02-10 05:54] LABS: Albumin Level 3.1 gm/dl (3.4-5.0); BUN Creatinine Ratio 24.7 (10-20); Bilirubin Direct 0.1 mg/dl (0-0.2); Bilirubin,Total 0.5 mg/dl (0.2-1.0); Calcium 8.7 mg/dl (8.5-10.1); Creatinine Clr Calc Pharmacy 43.1 ml/min; Est GFR (African American) 39.5 ml/min; Est GFR (Non-African American) 34.1 ml/min; Magnesium 1.5 mg/dl (1.7-2.4); Phosphorus 1.2 mg/dl (2.5-4.9); Total Protein 6.3 gm/dl (6.0-8.3)
[2022-02-10] MEDS ORDERED: SODIUM PHOSPHATE 3 MMOL/1 ML 5 ML VIAL IV ONE (06:09)
[2022-02-10] MEDS: MAGNESIUM SULFATE / D5W 1 GM/100 ML BAG IV SCH ×2 (06:35→08:07)
[2022-02-10] MEDS ORDERED: SODIUM PHOSPHATE 15 MMOL in SODIUM CHLORIDE 0.9% 250 ML IV ONE (07:00)
[2022-02-10 07:43] LABS: Estimated Average Glucose 177 mg/dl; Hemoglobin A1C 7.8 % (4.5-5.6)
[2022-02-10] MEDS: CEFEPIME 2,000 MG in SYRINGE 0 ML IV SCH ×2 (08:37→20:05)
--- NOTE | 2022-02-10 08:39 | Critical Care Progress Note ---
Date of Service February 10, 2022 Assessment & Plan (1) Acute hypercapnic respiratory failure: Plan: Reason Critically Ill: [] PLAN: Neuro: Acute encephalopathy: Resolved -Wean sedation move towards extubation Resp: Acute on chronic hypercapnic respiratory failure -Suspect secondary to sepsis of urinary etiology -No significant abnormalities on waveform, will see how patient liberate from ventilator CV: Elevated troponins -Likely type II demand ischemia -I think pulmonary embolism is rather unlikely, with resolving hypoxia and kidney disease I think CTA is of minimal utility at this time, no strong indication for systemic anticoagulation -Previous echo reviewed, I am concerned for underlying pulmonary hypertension Elevated blood pressure -Holding lisinopril secondary to CIERA -Not inclined to treat with additional agent at this time Fluids/Renal: Acute kidney injury: Improving Hyperkalemia: Resolved -Hyperkalemia most likely associated with acidosis ID: Sepsis secondary to urinary source -Discontinue Zyvox continue cefepime at this time await further culture data GI/Nutrition: Passed bedside swallow Morbid obesity: BMI 59 -Diabetic diet Heme: Anemia: Near prior baseline -No significant indication for further work-up from critical care standpoint at this time DVT prophylaxis: Heparin 7500 units 3 times daily Endocrine: ICU hyperglycemia protocol Vascular access: Peripheral IVs Code Status: Full code Disposition: 1600: Patient has been extubated and remained stable, candidate for downgrade out of ICU (2) Acute on chronic respiratory failure with hypoxia and hypercapnia: (3) Hyperkalemia: (4) Hwmex-fv-hyxjwdn kidney injury: (5) Demand ischemia of myocardium: (6) Anemia: (7) DMII (diabetes mellitus, type 2): (8) Morbid obesity: Admission and Anticipated Discharge Date Admission Date: February 09, 2022 Subjective No overnight events Review of Systems Review of Systems: Unobtainable due to endotracheal tube Physical Exam Physical Exam: General: Sedated. nontoxic. Skin: Warm, dry, Head: Atraumatic Ears, nose, mouth and throat: airway obscured by endotracheal tube Cardiovascular: Normal peripheral perfusion Respiratory: Ventilator settings reviewed Gastrointestinal: Rotund, difficult exam Musculoskeletal: No deformity Results & Data Results & Data ([facility]) Vital Signs (Past 12 Hours) Vital Signs Temp Pulse Resp BP Pulse Ox O2 Del Method FiO2 02/10/22 07:00 52 L 18 168/79 H 98 Mechanical Vent 40 02/10/22 07:30 53 L 19 98 40 02/10/22 06:18 18 02/10/22 05:30 56 L 18 02/10/22 05:30 154/76 H 02/10/22 05:01 58 L 18 100 02/10/22 05:01 175/80 H 02/10/22 05:00 58 L 18 100 02/10/22 04:32 61 19 98 02/10/22 04:32 139/99 02/10/22 04:30 60 22 100 02/10/22 04:18 123/100 02/10/22 04:00 37.0 C 54 L 19 94 02/10/22 03:30 53 L 22 93 02/10/22 03:30 122/61 02/10/22 04:00 40 02/10/22 02:35 52 L 27 H 97 40 02/10/22 03:00 54 L 22 94 02/10/22 03:00 138/65 02/10/22 02:30 53 L 19 96 02/10/22 02:30 126/62 02/10/22 02:00 53 L 23 96 02/10/22 02:00 132/63 02/10/22 01:30 54 L 22 96 02/10/22 01:00 53 L 22 95 02/10/22 01:00 132/58 L 02/10/22 00:30 52 L 22 96 02/10/22 00:30 129/65 02/10/22 00:00 40 02/10/22 00:00 56 L 22 95 02/10/22 00:00 132/65 02/09/22 23:00 61 22 97 02/09/22 23:00 137/68 02/10/22 00:00 55 L 02/09/22 23:13 64 23 98 40 02/09/22 22:39 37.0 C 139/71 02/09/22 22:39 62 22 97 02/09/22 22:30 63 22 02/09/22 22:00 58 L 22 95 02/09/22 22:00 132/66 02/09/22 21:30 59 L 22 96 02/09/22 21:30 127/66 02/09/22 21:00 56 L 22 95 02/09/22 21:00 125/60 02/09/22 20:45 59 L 22 94 Critical Care Results & Data Vital Signs (Past 12 Hours) Vital Signs Temp Pulse Resp BP Pulse Ox O2 Del Method FiO2 02/10/22 07:00 52 L 18 168/79 H 98 Mechanical Vent 40 02/10/22 07:30 53 L 19 98 40 02/10/22 06:18 18 02/10/22 05:30 56 L 18 02/10/22 05:30 154/76 H 02/10/22 05:01 58 L 18 100 02/10/22 05:01 175/80 H 02/10/22 05:00 58 L 18 100 02/10/22 04:32 61 19 98 02/10/22 04:32 139/99 02/10/22 04:30 60 22 100 02/10/22 04:18 123/100 02/10/22 04:00 37.0 C 54 L 19 94 02/10/22 03:30 53 L 22 93 02/10/22 03:30 122/61 02/10/22 04:00 40 02/10/22 02:35 52 L 27 H 97 40 02/10/22 03:00 54 L 22 94 02/10/22 03:00 138/65 02/10/22 02:30 53 L 19 96 02/10/22 02:30 126/62 02/10/22 02:00 53 L 23 96 02/10/22 02:00 132/63 02/10/22 01:30 54 L 22 96 02/10/22 01:00 53 L 22 95 02/10/22 01:00 132/58 L 02/10/22 00:30 52 L 22 96 02/10/22 00:30 129/65 02/10/22 00:00 40 02/10/22 00:00 56 L 22 95 02/10/22 00:00 132/65 02/09/22 23:00 61 22 97 02/09/22 23:00 137/68 02/10/22 00:00 55 L 02/09/22 23:13 64 23 98 40 02/09/22 22:39 37.0 C 139/71 02/09/22 22:39 62 22 97 02/09/22 22:30 63 22 02/09/22 22:00 58 L 22 95 02/09/22 22:00 132/66 02/09/22 21:30 59 L 22 96 02/09/22 21:30 127/66 02/09/22 21:00 56 L 22 95 02/09/22 21:00 125/60 02/09/22 20:45 59 L 22 94 Lab & Micro Results (Past 24 Hours) RBC 3.08 M/uL (3.93-5.22) L 02/10/22 WBC 6.76 K/ul (4.8-10.8) 02/10/22 Hgb 9.0 g/dl (12.0-16.0) L 02/10/22 Hct 30.0 % (34.1-44.9) L 02/10/22 MCV 97.4 fL (80.0-100.0) 02/10/22 MCH 29.2 pg (25.0-34.0) 02/10/22 MCHC 30.0 g/dL (32.0-36.0) L 02/10/22 RDW Standard Deviation 48.9 fL (36.4-46.3) H 02/10/22 RDW Coefficient of Variation 13.7 % (11.5-14.5) 02/10/22 Plt Count 228 K/uL (130-400) 02/10/22 MPV 9.9 fL (9.4-12.3) 02/10/22 Nucleated Red Blood Cells % (auto) 0.3 % 02/10 Nucleated RBC Absolute Count (auto) 0.02 K/uL (0-0) H 01/15 01/04 Neutrophils (%) (Auto) 70.4 % 02/10/22 Lymphocytes (%) (Auto) 20.0 % 02/10/22 Monocytes # (Auto) 0.49 K/uL (0.24-0.82) 02/10/22 Eosinophils # (Auto) 0.11 K/uL (0-0.50) 02/10/22 Immature Granulocyte % (Auto) 0.4 % 02/10/22 Neutrophils # (Auto) 4.75 K/uL (1.4-6.5) 02/10/22 Lymphocytes # (Auto) 1.35 K/uL (1.2-3.4) 02/10/22 Monocytes # (Auto) 0.49 K/uL (0.24-0.82) 02/10/22 Eosinophils # (Auto) 0.11 K/uL (0-0.50) 02/10/22 Basophils # (Auto) 0.03 K/uL (0-0.2) 02/10/22 Immature Granulocyte # (Auto) 0.03 K/uL (0.00-0.02) H 02/10 Na 142 mmol/L (136-145) 02/10/22 K 4.0 mmol/L (3.5-5.1) 02/10/22 Cl 102 mmol/L (98-107) 02/10/22 CO2 33 mmol/L (21-32) H 02/10/22 Anion Gap 7 (3-11) 02/10/22 BUN 36 mg/dl (6-23) H 02/10/22 Creatinine 1.46 mg/dl (0.6-1.2) H 02/10/22 Estimated GFR ( Amer) 39.5 ml/min 02/10/22 Estimated GFR (Non-Af Amer) 34.1 ml/min 02/10/22 BUN/Creatinine Ratio 24.7 (10-20) H 02/10/22 Glu 66 mg/dl (70-99(Fasting)) L 02/10/22 Ca 8.7 mg/dl (8.5-10.1) 02/10/22 Phosphorus Level 1.2 mg/dl (2.5-4.9) L* 02/10/22 Total Bilirubin 0.5 mg/dl (0.2-1.0) 02/10/22 Direct Bilirubin 0.1 mg/dl (0-0.2) 02/10/22 AST 17 U/L (13-39) 02/10/22 ALT 11 U/L (7-52) 02/10/22 Alkaline Phosphatase 72 U/L (34-104) 02/10/22 TP 6.3 gm/dl (6.0-8.3) 02/10/22 Albumin 3.1 gm/dl (3.4-5.0) L 02/10/22 Mg 1.5 mg/dl (1.7-2.4) L 02/10/22 03:59 Calcium Level 8.7 mg/dl (8.5-10.1) 02/10/22 03:59 Prothromb Time International Ratio 1.4 (0.9-1.1) H 02/10/22 03 :59 Jose Test Pass 02/10/22 04:57 Microbiology 02/09/22 09:14 Urine Culture - Preliminary Urine,Clean Catch Gram negative bacilli Diagnostic Findings (Past 24 Hours) Chest X-Ray 02/09/22 08:51 XR chest 1V portable CLINICAL HISTORY: Sepsis. COMPARISON STUDY: Chest CT July 25, 2021. Chest radiograph July 26, 2021. FINDINGS: Median sternotomy wires are noted. Cardiomegaly is unchanged. There is no pneumothorax. There are possible trace bilateral pleural effusions. This exam is compromised by suboptimal penetration related to portable technique. Mild interstitial thickening. Bibasilar opacities are noted. IMPRESSION: 1. Cardiomegaly. Pulmonary vascular congestion with possible mild pulmonary edema and small bilateral pleural effusions. 3. Bibasilar opacities which could reflect an infectious process or atelectasis. Radiographic follow-up is recommended. ACT 112: Negative or not required by law. Electronically signed by: Earl Wallace M.D. 02/09/2022 10:07 AM Chest X-Ray 02/09/22 11:00 XR chest 1V portable CLINICAL HISTORY: post intubation TECHNIQUE: Single frontal radiograph of the chest was obtained. Comparison: Comparison is made to chest radiograph 02/09/2022 FINDINGS: Exam is limited by underpenetration. Median sternotomy wires are unchanged. The endotracheal tube terminates 22 mm from the che. Cardiomegaly is noted. Bilateral lower lung predominant airspace opacities are seen. There is a small left pleural effusion. IMPRESSION: 1. Endotracheal tube terminates 2.2 cm from the che, satisfactory position. 2. Bilateral lower lung predominant airspace opacities which may represent atelectasis, pneumonia, and/or aspiration. Stable cardiomegaly. 3. Small left pleural effusion. ACT 112: Negative or not required by law. Electronically signed by: Jese Oviedo M.D. 02/09/2022 11:23 AM I & O Totals 24 Hours 02/09/22 02/10/22 02/11/22 06:59 06:59 06:59 Intake Total 3087.777 / 3087.777 114.657 / 114.657 Output Total 900 / 900 Balance 2187.777 / 2187.777 114.657 / 114.657 Cumulative 02/09/22 08:36 thru 02/10/22 08:07 Intake Total 3202.434 Output Total 900 Balance 2302.434 RT Ventilator Mngmt (Last Documented) Ventilator Ordered Settings Ventilator Support Mode Assist Control 02/10/22 07:30 Respiratory Rate 19 02/10/22 07:30 Ventilator Tidal Volume 420 02/10/22 07:30 Setting Minute Ventilation 7.6 02/10/22 07:30 Positive End Expiratory 8 02/10/22 07:30 Pressure Fraction of Inspired Oxygen 40 02/10/22 07:30 Machine Comment RR decreased post ABG, 02/09/22 14:33 Shippert aware Ventilator - PT Measurements Respiratory Rate 19 Exhaled Tidal Volume 420 Minute Ventilation 7.6 Peak Inspiratory Airway 32 Pressure Plateau Pressure 27 Respiratory Cycle Inspiratory: 1:3.2 Expiratory Ratio Inspiratory Phase Time 0.8 End-Tidal CO2 51 Static Lung Compliance 22.11 Dynamic Lung Compliance 17.50 Normal Static Lung Compliance 45.00 Coding Level of Care Code 39895 Subseq Hosp Care Lvl 3 Diagnoses Acute hypercapnic respiratory failure J96.02 Acute on chronic respiratory failure with hypoxia and hypercapnia J96.21; J96.22 Hyperkalemia E87.5 Gseao-lu-wapetlj kidney injury N17.9; N18.9 Demand ischemia of myocardium I24.8 Anemia D64.9 DMII (diabetes mellitus, type 2) E11.9 Morbid obesity E66.01
--- NOTE | 2022-02-10 11:22 | XRay Report ---
XR chest 1V portable CLINICAL HISTORY: Resp failure TECHNIQUE: Single frontal radiograph of the chest was obtained. Comparison: Comparison is made to chest radiograph 02/09/2022 FINDINGS: Lines and tubes are stable. Cardiomegaly is noted. Previously noted multifocal airspace opacities are stable to slightly improved from prior exam. There is a small left pleural effusion. IMPRESSION: Stable cardiomegaly. Previously noted airspace opacities are stable to minimally improved. Small left pleural effusion. ACT 112: Negative or not required by law. Electronically signed by: Jese Oviedo M.D. 02/10/2022 11:20 AM
--- NOTE | 2022-02-10 11:33 | Hospitalist Progress Note ---
Date of Service February 10, 2022 Assessment & Plan (1) Acute on chronic respiratory failure with hypoxia and hypercapnia: Plan: Improved. Undergoing spontaneous breathing trial at this time. Hopeful extubation later today, February 10. Pulmonary medicine management. Empirically on linezolid and cefepime . (2) Hyperkalemia: Plan: Potassium 6.9 in setting of acute respiratory failure, respiratory acidosis, CIERA on CKD on admission. Potassium now improved to 4.0. Will follow. Serial labs. Continue to hold lisinopril for now. (3) Gikoe-ux-vtkkymk kidney injury: Plan: Cr mildly elevated at 1.32 from baseline 1-1.2 on admission. Creatinine remains mildly elevated and probably represents the baseline. Monitor intake and output. We will follow. (4) Demand ischemia of myocardium: Plan: - Elevated trop, 43.7 on admission and trended upward after admission. No evidence of acute MD however. Telemetry. Will follow. (5) Anemia: Plan: - Stable, in the setting of GI bleed/ nonbleeding duodenal ulcers in July. No overt GI bleeding at this time. Hemoglobin 9.0 today, February 10. Serial labs ordered. (6) DMII (diabetes mellitus, type 2): Plan: - ICU hyperglycemic protocol while in the ICU. Usual regimen includes 50 units of Lantus at night with 10 units of Novolin prior to meals. Sliding scale coverage for now. ADA diet and resume basal insulin when taking p.o. (7) Morbid obesity: Plan: BMI greater than 40. Weight loss is recommended. Supportive care Plan Disposition to be determined. Admission and Anticipated Discharge Date Admission Date: February 09, 2022 Subjective The patient is awake and alert. She remains intubated but currently is undergoing spontaneous breathing trial prior to extubation hopefully later today, February 10. Review of Systems Review of Systems: The patient remains intubated and is unable to answer questions related to review of systems Physical Exam Physical Exam: General-alert and oriented. Intubated undergoing spontaneous breathing trial. HEENT-head atraumatic and normocephalic, pupils equal and reactive to light, extraocular muscles intact Neck-no lymphadenopathy or thyromegaly, trachea midline Chest-diminished breath sounds. Scattered rhonchi bilaterally. Cardiac-irregular rhythm. Heart rate less than 100. Normal S1 and S2. Abdomen-normal bowel sounds, no hepatosplenomegaly Extremities-no cyanosis, clubbing, or edema Neuro-cranial nerves II through XII intact, motor and sensory function within normal limits, strength symmetrical , no focal deficits Psych-normal affect, normal mood Results & Data Results & Data ([facility]) Vital Signs (Past 12 Hours) Vital Signs Temp Pulse Resp BP Pulse Ox O2 Del Method FiO2 02/10/22 08:00 40 02/10/22 08:00 53 L 02/10/22 07:00 52 L 18 168/79 H 98 Mechanical Vent 40 02/10/22 07:30 53 L 19 98 40 02/10/22 06:18 18 02/10/22 05:30 56 L 18 02/10/22 05:30 154/76 H 02/10/22 05:01 58 L 18 100 02/10/22 05:01 175/80 H 02/10/22 05:00 58 L 18 100 02/10/22 04:32 61 19 98 02/10/22 04:32 139/99 02/10/22 04:30 60 22 100 02/10/22 04:18 123/100 02/10/22 04:00 37.0 C 54 L 19 94 02/10/22 03:30 53 L 22 93 02/10/22 03:30 122/61 02/10/22 04:00 40 02/10/22 02:35 52 L 27 H 97 40 02/10/22 03:00 54 L 22 94 02/10/22 03:00 138/65 02/10/22 02:30 53 L 19 96 02/10/22 02:30 126/62 02/10/22 02:00 53 L 23 96 02/10/22 02:00 132/63 02/10/22 01:30 54 L 22 96 02/10/22 01:00 53 L 22 95 02/10/22 01:00 132/58 L 02/10/22 00:30 52 L 22 96 02/10/22 00:30 129/65 02/10/22 00:00 40 02/10/22 00:00 56 L 22 95 02/10/22 00:00 132/65 02/10/22 00:00 55 L Laboratory Results 02/10/22 03:59 02/10/22 03:59 PG Care Time/CCT Total # of Minutes Spent Total Time Spent with Patient: Total time spent is greater than 50% in coordination of care (as documented) at patient's floor/unit and/or counseling patient: Coding Level of Care Code 49686 Subseq Hosp Care Lvl 3 Diagnoses Acute on chronic respiratory failure with hypoxia and hypercapnia J96.21; J96.22 Hyperkalemia E87.5 Ecvth-we-arywmeb kidney injury N17.9; N18.9 Demand ischemia of myocardium I24.8 Anemia D64.9 DMII (diabetes mellitus, type 2) E11.9 Morbid obesity E66.01
[2022-02-10] MEDS ORDERED: Nursing to Pharmacy Communication SCH (20:15)
[2022-02-10] MEDS ORDERED: LABETALOL HCL IV 5 MG/ML 20ML IV STA (20:26)
[2022-02-10] MEDS ORDERED: POLYETHYLENE (MIRALAX) 17 GM PACK PO PRN (20:39)
[2022-02-10] MEDS: ATORVASTATIN 20 MG TAB PO SCH (21:13)
[2022-02-10] MEDS ORDERED: BISMUTH SUBSALICYLATE SUSP PO PRN (23:24)
[2022-02-11] MEDS: MELATONIN 3 MG TAB PO PRN (00:13)
[2022-02-11] MEDS: ACETAMINOPHEN 500 MG TAB PO PRN (00:13)
[2022-02-11] MEDS: FAMOTIDINE 20 MG in SYRINGE 3 ML IV SCH ×2 (00:16→13:01)
[2022-02-11] MEDS: SODIUM CHLORIDE 0.9% 1000ML 1,000 ML IV SCH ×2 (04:24→14:52)
[2022-02-11] MEDS: HEPARIN SOD 5,000 UNIT/0.5 ML VIAL SQ SCH ×3 (05:26→21:27)
[2022-02-11 06:18] LABS: Basophils # (auto) 0.04 K/uL (0-0.2); Basophils % (auto) 0.6 %; Eosinophils # (auto) 0.16 K/uL (0-0.50); Eosinophils % (auto) 2.3 %; Hematocrit (blood only) 30.5 % (34.1-44.9); Hemoglobin 9.2 g/dl (12.0-16.0); Immature Granulocytes # (auto) 0.02 K/uL (0.00-0.02); Immature Granulocytes % (auto) 0.3 %; Lymphocytes # (auto) 1.03 K/uL (1.2-3.4); Lymphocytes % (auto) 14.5 %; Mean Corpuscular Hemoglobin 29.1 pg (25.0-34.0); Mean Corpuscular Hgb Conc 30.2 g/dL (32.0-36.0); Mean Corpuscular Volume 96.5 fL (80.0-100.0); Mean Platelet Volume 9.3 fL (9.4-12.3); Monocytes # (auto) 0.47 K/uL (0.24-0.82); Monocytes % (auto) 6.6 %; Neutrophils # (auto) 5.36 K/uL (1.4-6.5); Neutrophils % (auto) 75.7 %; Platelet Count 257 K/uL (130-400); RDW Coefficient of Variation 14.4 % (11.5-14.5); RDW Standard Deviation 50.4 fL (36.4-46.3); Red Blood Count 3.16 M/uL (3.93-5.22); White Blood Count 7.08 K/ul (4.8-10.8)
[2022-02-11 06:37] LABS: INR 1.2 (0.9-1.1); Partial Thromboplastin Time 27.2 Seconds (21.0-31.0)
[2022-02-11 06:43] LABS: Albumin Level 3.3 gm/dl (3.4-5.0); BUN Creatinine Ratio 21.9 (10-20); Bilirubin Direct 0.2 mg/dl (0-0.2); Bilirubin,Total 0.5 mg/dl (0.2-1.0); Calcium 8.7 mg/dl (8.5-10.1); Creatinine Clr Calc Pharmacy 49.2 ml/min; Est GFR (African American) 46.4 ml/min; Magnesium 1.7 mg/dl (1.7-2.4); Phosphorus 3.8 mg/dl (2.5-4.9); Potassium 4.4 mmol/L (3.5-5.1); Total Protein 6.9 gm/dl (6.0-8.3)
[2022-02-11 07:18] LABS: HCO3 ABG 40 mmol/L (19-24); Oxygen Saturation ABG 95.7 % (90-95); PCO2 ABG 64 mmHg (35-46); PO2 ABG 80 mmHg (80-95)
[2022-02-11 07:21] LABS: Allen Test Pos (Pos)
[2022-02-11] MEDS ORDERED: ONDANSETRON INJ 2 MG/ML 2 ML VIAL IV PRN (07:55)
[2022-02-11] MEDS: INSULIN ASPART PER UNIT SC SCH ×4 (08:07→21:22)
[2022-02-11] MEDS: CEFEPIME 2,000 MG in SYRINGE 0 ML IV SCH ×2 (08:10→21:27)
[2022-02-11] MEDS ORDERED: PANTOprazole 40 MG in SYRINGE 0 ML IV ONE (09:00)
[2022-02-11] MEDS: SUCRALFATE 1 GM/10 ML UDC PO SCH ×4 (11:56→21:27)
[2022-02-11] MEDS ORDERED: FUROSEMIDE 40 MG/4 ML VIAL IV ONE (13:08)
[2022-02-11] MEDS ORDERED: XOPENEX/ATROVENT 1.25mg/0.5MG NEB COMBO NEB SCH (13:10)
[2022-02-11] MEDS: LEVALBUTEROL 1.25MG/0.5ML NEB INH SCH ×2 (14:15→19:27)
[2022-02-11] MEDS: IPRATROPIUM BROMIDE NEB SOLN 0.02% 2.5 ML VIAL INH SCH ×2 (14:15→19:27)
[2022-02-11] MEDS ORDERED: OPTIRAY 300 500mL IV ONE (15:50)
--- NOTE | 2022-02-11 16:21 | CT Scan Report ---
CT ANGIOGRAM OF THE CHEST; CT SCAN OF THE ABDOMEN AND PELVIS WITH IV CONTRAST CLINICAL HISTORY: Respiratory failure. Upper abdominal pain. Nausea. COMPARISON STUDY: CT scan of the chest, abdomen, and pelvis dated 07/25/2021. TECHNIQUE: Following the IV administration of 105 of Optiray 300, CT angiogram of the chest is perfor med from the upper abdomen to the thoracic inlet utilizing the pulmonary embolus protocol. Images are reviewed in the axial, sagittal, coronal planes. 3-D MIPS images are created and assessed. Subsequen tly, CT scan of the abdomen and pelvis was performed from the lung bases to the proximal femora. Imag es are reviewed in the axial, sagittal, and coronal planes. IV contrast was administered without comp lication. A dose lowering technique was utilized adhering to the principles of ALARA. The examination s are severely degraded by large body habitus, and by streak artifact from the body wall abutting the CT injury. There is also streak artifact from the arms which could not be elevated above the chest o r abdomen. There is also motion artifact. CT DOSE: 1603.83 mGycm FINDINGS: CHEST: Thyroid: Imaged portions of the thyroid gland are normal in size and attenuation. Thoracic aorta: There is atherosclerotic calcification of the thoracic aorta, with is normal in calib er and demonstrates standard 3-vessel arch anatomy. No dissection is identified. Pulmonary vasculature: The pulmonary trunk is dilated, measuring 4.2 cm in diameter. This suggests pu lmonary artery hypertension. There are no filling defects identified in the main or lobar pulmonary a rteries to indicate central pulmonary embolus. The segmental and subsegmental branches cannot be asse ssed. Heart: The patient is status post midline sternotomy. The heart is enlarged and without pericardial e ffusion. The coronary arteries and mitral annulus are calcified. Lungs and pleural spaces: Evaluation of the lung parenchyma is severely degraded by motion artifact. There are small to moderate pleural effusions with dependent consolidation. Patchy airspace consolida tion is seen throughout the upper lobes. Interlobular septal thickening is suggested. There is no pne umothorax. The trachea and central airways appear clear. Mediastinum: There is no mediastinal lymphadenopathy. Jeannette: Grossly clear. Axillae: There is no axillary lymphadenopathy. Bony thorax: The skeletal structures are osteopenic. No lytic or blastic lesions are identified. Dege nerative change is noted in the shoulders and thoracic spine. ABDOMEN AND PELVIS: Liver: Evaluation of the liver severely degraded by streak artifact. The contrast-enhanced liver is e nlarged, measuring 19 cm in length. The liver demonstrates diffusely diminished attenuation indicatin g hepatic steatosis. There is no intrahepatic biliary ductal dilatation. The hepatic veins and portal veins are patent. Gallbladder: There are calcified gallstones without CT evidence of acute cholecystitis. Spleen: Normal in size and attenuation. Pancreas: The pancreas is moderately atrophic and grossly unremarkable. Adrenal glands: Unremarkable. Kidneys: Evaluation of the kidneys is significantly degraded by streak artifact. The contrast enhance d kidneys demonstrate cortical atrophy and are without hydronephrosis. The kidneys enhance symmetrica lly. Abdominal vasculature: The abdominal aorta is normal in course and caliber noting ehef-gd-nzvngdug at herosclerotic calcification. Stomach and bowel: There is a small hiatal hernia. There is moderate colonic diverticulosis without C T evidence of acute diverticulitis. Wyuu-sm-vrysmmah fecal retention is seen throughout the colon and lipoma suggested in the sigmoid colon on image #292. The appendix is not visualized. Hyperdense mat erial within the colon may represent residual enteric contrast. Peritoneum: There is no intraperitoneal free air or abdominal ascites. Lymphadenopathy: None. Pelvic viscera: The bladder is decompressed around a Bruno catheter and could not be evaluated. The u terus and adnexa are normal as visualized. Skeletal structures: The skeletal structures are osteopenic. No lytic or blastic lesions are seen. Th ere is lumbosacral spondylosis. IMPRESSION: 1. Severely streak and motion compromised examinations. 2. Cardiomegaly with evidence of pulmonary artery hypertension. Interlobular septal thickening sugges ts fluid overload/congestive failure. Clinical correlation will be required. 3. There is no evidence of central pulmonary embolus in the main or lobar pulmonary arteries. The seg mental and subsegmental vessels could not be assessed. 4. There are ocwfz-jf-qavfioap pleural effusions with dependent consolidation. 5. Patchy airspace opacities in the upper lobes could represent an infectious/inflammatory pneumoniti s and/or pulmonary edema. Again, clinical correlation will be required. 6. No acute infectious or inflammatory findings are identified in the abdomen or pelvis. 7. Hepatomegaly and hepatic steatosis. 8. Colonic diverticulosis without CT evidence of acute diverticulitis. 9. Cholelithiasis. 10. Additional findings as above. ACT 112: Negative or not required by law. Electronically signed by: Glenn Hudson M.D. 02/11/2022 4:20 PM
[2022-02-11] MEDS ORDERED: bisacodyL 10 MG SUPP PR STA (16:28)
--- NOTE | 2022-02-11 20:19 | Hospitalist Progress Note ---
Date of Service February 11, 2022 Assessment & Plan (1) Acute on chronic respiratory failure with hypoxia and hypercapnia: Plan: Improved. Intubated HD #1. Extubated HD #2. CTA chest today - no PE, but evidence of b/l pneumonia and pulmonary edema. see below. (2) Acute on chronic diastolic (congestive) heart failure: Plan: evidence of such clinically & radiographically STOP IV fluids lasix 40mg IV x 1 now xopenex/atrovent nebs q6h for wheezes which is likely "cardiac" wheezing no h/o COPD (3) UTI (urinary tract infection): Plan: 2nd klebsiella changing cefepime to unasyn (4) Pneumonia: Plan: b/l, as seen on CTA chest today can downgrade cefepime to unasyn q6h o2 sats stable and O2 requirements have decreased (5) Hyperkalemia: Plan: Potassium 6.9 in setting of acute respiratory failure, respiratory acidosis, CIERA on CKD on admission. Also had been on bactrim for UTI. K improved / normalized. JAIMIE on hold. (6) Tulkb-we-lvwhlfr kidney injury: Plan: Cr mildly elevated at 1.32 from baseline 1-1.2 on admission. Creatinine remains mildly elevated and probably represents the baseline. (7) Demand ischemia of myocardium: Plan: Elevated trop, 43.7 on admission and trended upward after admission. No ACS however. I repeated an EKG this admission due to abdominal pain - no ischemic changes. (8) Anemia: Plan: H/H acceptable Consider Fe studies, B12, folate while here (9) DMII (diabetes mellitus, type 2): Plan: add back lantus - since intake is poor - start with 20 units daily tighten correction & carb coverage - novolog SSI (10) Morbid obesity: Plan: BMI 59 (11) History of pulmonary embolus (PE): Plan: 07/2021 with b/l LE DVTs Rx 6 months of coumadin per records NO PE on CTA chest today (12) Paroxysmal A-fib: Plan: remains in NSR not on chronic anticoagulation?? high risk of embolic CVA from PAF (13) Acute metabolic encephalopathy: Plan: 2nd to numerous issues as above ongoing if any worsening or persistence then obtain head imaging - r/o subacute CVA (14) Abdominal pain: Plan: 2nd to gastritis? 2nd to PUD? 2nd to constipation? added carafate cont H2 flores gave PPI IV x 1 dulcolax suppos x 1 for constipation re-eval tomorrow lipase wnl lfts wnl EKG w/o ischemic changes gallstones on CT, but no signs of cholecystitis allow diet as tolerated (15) History of duodenal ulcer: Plan: 07/2021 Plan updated pt's son extensively by phone Admission and Anticipated Discharge Date Admission Date: February 09, 2022 Subjective events of last 24 hours noted this am I received notification from staff that patient was complaining of abd pain and also feeling dizzy while laying in bed she also had reported nausea during bedside rounds she was poor historian with apparent thought blocking (vs confusion) she did endorse abd pain - pointed to the upper abdomen as location she was unable to provide other meaningful history or ROS I called and spoke with her son by phone - he reports her speech is typically normal, intelligible he also states she is usually oriented does not ambulate - only transfers from bed to wheelchair, etc tele overnight - NSR Review of Systems Review of Systems: Unobtainable due to cognitive status Physical Exam Physical Exam: gen - morbidly obese, tachypnea, audible wheezing, confused, thought blocking ? vs confusion causing speech delay neck - ?JVD mouth - MMM CV - irregular, s1 s2, regular rate lungs - diffuse wheezes b/l, tachypnea, rales bases, decreased BS bases abd - distended, tender RUQ, BS+ ext - <1+ edema b/l, pulses 2+ b/l psych - oriented to person only Results & Data Results & Data ([facility]) Vital Signs (Past 12 Hours) Vital Signs Temp Pulse Pulse Resp BP BP Pulse Ox 02/11/22 20:01 36.8 C 83 18 160/91 H 90 02/11/22 19:28 81 20 91 02/11/22 14:21 77 02/11/22 15:29 36.5 C 67 20 154/77 H 92 02/11/22 14:15 76 20 94 02/11/22 12:58 36.8 C 66 20 175/60 H 93 O2 Del Method O2 Flow Rate 02/11/22 20:01 Nasal Cannula 4 02/11/22 19:28 Nasal Cannula 4 02/11/22 14:21 02/11/22 15:29 Nasal Cannula 3 02/11/22 14:15 Nasal Cannula 4 02/11/22 12:58 Nasal Cannula 4 Laboratory Results Laboratory Results - last 24 hr 02/10/22 02/11/22 02/11/22 20:31 06:10 06:10 WBC 7.08 RBC 3.16 L Hgb 9.2 L Hct 30.5 L MCV 96.5 MCH 29.1 MCHC 30.2 L RDW Std Deviation 50.4 H RDW Coeff of Jacqueline 14.4 Plt Count 257 MPV 9.3 L Immature Gran % (Auto) 0.3 Neut % (Auto) 75.7 Lymph % (Auto) 14.5 [place] % (Auto) 6.6 Eos % (Auto) 2.3 Baso % (Auto) 0.6 Neut # (Auto) 5.36 Lymph # (Auto) 1.03 L [place] # (Auto) 0.47 Eos # (Auto) 0.16 Baso # (Auto) 0.04 Immature Gran # (Auto) 0.02 PT 13.0 H INR 1.2 H APTT 27.2 PTT Ratio 1.0 ABG pH ABG pCO2 ABG pO2 ABG HCO3 ABG O2 Saturation ABG Base Excess Jose Test Barometric Pressure Oxygen Given Sodium Potassium Chloride Carbon Dioxide Anion Gap BUN Creatinine Est Cr Clr Drug Dosing Est GFR ( Amer) Est GFR (Non-Af Amer) BUN/Creatinine Ratio Glucose POC Glucose 154 H Calcium Phosphorus Magnesium Total Bilirubin Direct Bilirubin AST ALT Alkaline Phosphatase Total Protein Albumin Lipase 02/11/22 02/11/22 02/11/22 06:10 06:10 06:10 WBC RBC Hgb Hct MCV MCH MCHC RDW Std Deviation RDW Coeff of Jacqueline Plt Count MPV Immature Gran % (Auto) Neut % (Auto) Lymph % (Auto) [place] % (Auto) Eos % (Auto) Baso % (Auto) Neut # (Auto) Lymph # (Auto) [place] # (Auto) Eos # (Auto) Baso # (Auto) Immature Gran # (Auto) PT INR APTT PTT Ratio ABG pH Cancelled ABG pCO2 Cancelled ABG pO2 Cancelled ABG HCO3 Cancelled ABG O2 Saturation Cancelled ABG Base Excess Cancelled Jose Test Cancelled Barometric Pressure Cancelled Oxygen Given Cancelled Sodium 140 Potassium 4.4 Chloride 100 Carbon Dioxide 35 H Anion Gap 5 BUN 28 H Creatinine 1.28 H Est Cr Clr Drug Dosing 49.2 Est GFR ( Amer) 46.4 Est GFR (Non-Af Amer) 40.0 BUN/Creatinine Ratio 21.9 H Glucose 154 H POC Glucose Calcium 8.7 Phosphorus 3.8 D Magnesium 1.7 Total Bilirubin 0.5 Direct Bilirubin 0.2 AST 19 ALT 13 Alkaline Phosphatase 81 Total Protein 6.9 Albumin 3.3 L Lipase 16 02/11/22 02/11/22 02/11/22 06:54 07:32 12:00 WBC RBC Hgb Hct MCV MCH MCHC RDW Std Deviation RDW Coeff of Jacqueline Plt Count MPV Immature Gran % (Auto) Neut % (Auto) Lymph % (Auto) [place] % (Auto) Eos % (Auto) Baso % (Auto) Neut # (Auto) Lymph # (Auto) [place] # (Auto) Eos # (Auto) Baso # (Auto) Immature Gran # (Auto) PT INR APTT PTT Ratio ABG pH 7.40 ABG pCO2 64 H ABG pO2 80 ABG HCO3 40 H ABG O2 Saturation 95.7 H ABG Base Excess 12.0 H Jose Test Pos Barometric Pressure Oxygen Given 4 L Sodium Potassium Chloride Carbon Dioxide Anion Gap BUN Creatinine Est Cr Clr Drug Dosing Est GFR ( Amer) Est GFR (Non-Af Amer) BUN/Creatinine Ratio Glucose POC Glucose 175 H 227 H Calcium Phosphorus Magnesium Total Bilirubin Direct Bilirubin AST ALT Alkaline Phosphatase Total Protein Albumin Lipase 02/11/22 16:42 WBC RBC Hgb Hct MCV MCH MCHC RDW Std Deviation RDW Coeff of Jacqueline Plt Count MPV Immature Gran % (Auto) Neut % (Auto) Lymph % (Auto) [place] % (Auto) Eos % (Auto) Baso % (Auto) Neut # (Auto) Lymph # (Auto) [place] # (Auto) Eos # (Auto) Baso # (Auto) Immature Gran # (Auto) PT INR APTT PTT Ratio ABG pH ABG pCO2 ABG pO2 ABG HCO3 ABG O2 Saturation ABG Base Excess Jose Test Barometric Pressure Oxygen Given Sodium Potassium Chloride Carbon Dioxide Anion Gap BUN Creatinine Est Cr Clr Drug Dosing Est GFR ( Amer) Est GFR (Non-Af Amer) BUN/Creatinine Ratio Glucose POC Glucose 176 H Calcium Phosphorus Magnesium Total Bilirubin Direct Bilirubin AST ALT Alkaline Phosphatase Total Protein Albumin Lipase Diagnostic Findings Chest CTA 09/29/22 08:05 CT ANGIOGRAM OF THE CHEST; CT SCAN OF THE ABDOMEN AND PELVIS WITH IV CONTRAST CLINICAL HISTORY: Respiratory failure. Upper abdominal pain. Nausea. COMPARISON STUDY: CT scan of the chest, abdomen, and pelvis dated 07/25/2021. TECHNIQUE: Following the IV administration of 105 of Optiray 300, CT angiogram of the chest is performed from the upper abdomen to the thoracic inlet utilizing the pulmonary embolus protocol. Images are reviewed in the axial, sagittal, coronal planes. 3-D MIPS images are created and assessed. Subsequently, CT scan of the abdomen and pelvis was performed from the lung bases to the proximal femora. Images are reviewed in the axial, sagittal, and coronal planes. IV contrast was administered without complication. A dose lowering technique was utilized adhering to the principles of ALARA. The examinations are severely degraded by large body habitus, and by streak artifact from the body wall abutting the CT injury. There is also streak artifact from the arms which could not be elevated above the chest or abdomen. There is also motion artifact. CT DOSE: 1603.83 mGycm FINDINGS: CHEST: Thyroid: Imaged portions of the thyroid gland are normal in size and attenuation. Thoracic aorta: There is atherosclerotic calcification of the thoracic aorta, with is normal in caliber and demonstrates standard 3-vessel arch anatomy. No dissection is identified. Pulmonary vasculature: The pulmonary trunk is dilated, measuring 4.2 cm in diameter. This suggests pulmonary artery hypertension. There are no filling defects identified in the main or lobar pulmonary arteries to indicate central pulmonary embolus. The segmental and subsegmental branches cannot be assessed. Heart: The patient is status post midline sternotomy. The heart is enlarged and without pericardial effusion. The coronary arteries and mitral annulus are calcified. Lungs and pleural spaces: Evaluation of the lung parenchyma is severely degraded by motion artifact. There are small to moderate pleural effusions with dependent consolidation. Patchy airspace consolidation is seen throughout the upper lobes. Interlobular septal thickening is suggested. There is no pneumothorax. The trachea and central airways appear clear. Mediastinum: There is no mediastinal lymphadenopathy. Jeannette: Grossly clear. Axillae: There is no axillary lymphadenopathy. Bony thorax: The skeletal structures are osteopenic. No lytic or blastic lesions are identified. Degenerative change is noted in the shoulders and thoracic spine. ABDOMEN AND PELVIS: Liver: Evaluation of the liver severely degraded by streak artifact. The contrast-enhanced liver is enlarged, measuring 19 cm in length. The liver demonstrates diffusely diminished attenuation indicating hepatic steatosis. There is no intrahepatic biliary ductal dilatation. The hepatic veins and portal veins are patent. Gallbladder: There are calcified gallstones without CT evidence of acute cholecystitis. Spleen: Normal in size and attenuation. Pancreas: The pancreas is moderately atrophic and grossly unremarkable. Adrenal glands: Unremarkable. Kidneys: Evaluation of the kidneys is significantly degraded by streak artifact. The contrast enhanced kidneys demonstrate cortical atrophy and are without hydronephrosis. The kidneys enhance symmetrically. Abdominal vasculature: The abdominal aorta is normal in course and caliber noting akeh-vi-qswwywos atherosclerotic calcification. Stomach and bowel: There is a small hiatal hernia. There is moderate colonic diverticulosis without CT evidence of acute diverticulitis. Khhd-zk-hmbpcqze fecal retention is seen throughout the colon and lipoma suggested in the sigmoid colon on image #292. The appendix is not visualized. Hyperdense material within the colon may represent residual enteric contrast. Peritoneum: There is no intraperitoneal free air or abdominal ascites. Lymphadenopathy: None. Pelvic viscera: The bladder is decompressed around a Bruno catheter and could not be evaluated. The uterus and adnexa are normal as visualized. Skeletal structures: The skeletal structures are osteopenic. No lytic or blastic lesions are seen. There is lumbosacral spondylosis. IMPRESSION: 1. Severely streak and motion compromised examinations. 2. Cardiomegaly with evidence of pulmonary artery hypertension. Interlobular septal thickening suggests fluid overload/congestive failure. Clinical correlation will be required. 3. There is no evidence of central pulmonary embolus in the main or lobar pulmonary arteries. The segmental and subsegmental vessels could not be assessed. 4. There are ggctb-zx-wplirafm pleural effusions with dependent consolidation. 5. Patchy airspace opacities in the upper lobes could represent an infectious/inflammatory pneumonitis and/or pulmonary edema. Again, clinical correlation will be required. 6. No acute infectious or inflammatory findings are identified in the abdomen or pelvis. 7. Hepatomegaly and hepatic steatosis. 8. Colonic diverticulosis without CT evidence of acute diverticulitis. 9. Cholelithiasis. 10. Additional findings as above. ACT 112: Negative or not required by law. Electronically signed by: Glenn Hudson M.D. 02/11/2022 4:20 PM Abdomen/Pelvis CT 02/11/22 10:16 CT ANGIOGRAM OF THE CHEST; CT SCAN OF THE ABDOMEN AND PELVIS WITH IV CONTRAST CLINICAL HISTORY: Respiratory failure. Upper abdominal pain. Nausea. COMPARISON STUDY: CT scan of the chest, abdomen, and pelvis dated 07/25/2021. TECHNIQUE: Following the IV administration of 105 of Optiray 300, CT angiogram of the chest is performed from the upper abdomen to the thoracic inlet utilizing the pulmonary embolus protocol. Images are reviewed in the axial, sagittal, coronal planes. 3-D MIPS images are created and assessed. Subsequently, CT scan of the abdomen and pelvis was performed from the lung bases to the proximal femora. Images are reviewed in the axial, sagittal, and coronal planes. IV contrast was administered without complication. A dose lowering technique was utilized adhering to the principles of ALARA. The examinations are severely degraded by large body habitus, and by streak artifact from the body wall abutting the CT injury. There is also streak artifact from the arms which could not be elevated above the chest or abdomen. There is also motion artifact. CT DOSE: 1603.83 mGycm FINDINGS: CHEST: Thyroid: Imaged portions of the thyroid gland are normal in size and attenuation. Thoracic aorta: There is atherosclerotic calcification of the thoracic aorta, with is normal in caliber and demonstrates standard 3-vessel arch anatomy. No dissection is identified. Pulmonary vasculature: The pulmonary trunk is dilated, measuring 4.2 cm in reina meter. This suggests pulmonary artery hypertension. There are no filling defects identified in the main or lobar pulmonary arteries to indicate central pulmonary embolus. The segmental and subsegmental branches cannot be assessed. Heart: The patient is status post midline sternotomy. The heart is enlarged and without pericardial effusion. The coronary arteries and mitral annulus are calcified. Lungs and pleural spaces: Evaluation of the lung parenchyma is severely degraded by motion artifact. There are small to moderate pleural effusions with dependent consolidation. Patchy airspace consolidation is seen throughout the upper lobes. Interlobular septal thickening is suggested. There is no pneumothorax. The trachea and central airways appear clear. Mediastinum: There is no mediastinal lymphadenopathy. Jeannette: Grossly clear. Axillae: There is no axillary lymphadenopathy. Bony thorax: The skeletal structures are osteopenic. No lytic or blastic lesions are identified. Degenerative change is noted in the shoulders and thoracic spine. ABDOMEN AND PELVIS: Liver: Evaluation of the liver severely degraded by streak artifact. The contrast-enhanced liver is enlarged, measuring 19 cm in length. The liver demonstrates diffusely diminished attenuation indicating hepatic steatosis. There is no intrahepatic biliary ductal dilatation. The hepatic veins and portal veins are patent. Gallbladder: There are calcified gallstones without CT evidence of acute cholecystitis. Spleen: Normal in size and attenuation. Pancreas: The pancreas is moderately atrophic and grossly unremarkable. Adrenal glands: Unremarkable. Kidneys: Evaluation of the kidneys is significantly degraded by streak artifact. The contrast enhanced kidneys demonstrate cortical atrophy and are without hy dronephrosis. The kidneys enhance symmetrically. Abdominal vasculature: The abdominal aorta is normal in course and caliber noting zgtm-bw-zpmkgycd atherosclerotic calcification. Stomach and bowel: There is a small hiatal hernia. There is moderate colonic diverticulosis without CT evidence of acute diverticulitis. Hdon-yf-cxnjtwqn fecal retention is seen throughout the colon and lipoma suggested in the sigmoid colon on image #292. The appendix is not visualized. Hyperdense material within the colon may represent residual enteric contrast. Peritoneum: There is no intraperitoneal free air or abdominal ascites. Lymphadenopathy: None. Pelvic viscera: The bladder is decompressed around a Bruno catheter and could not be evaluated. The uterus and adnexa are normal as visualized. Skeletal structures: The skeletal structures are osteopenic. No lytic or blastic lesions are seen. There is lumbosacral spondylosis. IMPRESSION: 1. Severely streak and motion compromised examinations. 2. Cardiomegaly with evidence of pulmonary artery hypertension. Interlobular septal thickening suggests fluid overload/congestive failure. Clinical correlation will be required. 3. There is no evidence of central pulmonary embolus in the main or lobar pulmonary arteries. The segmental and subsegmental vessels could not be assessed. 4. There are mkfic-af-zpwyqehr pleural effusions with dependent consolidation. 5. Patchy airspace opacities in the upper lobes could represent an infectious/inflammatory pneumonitis and/or pulmonary edema. Again, clinical correlation will be required. 6. No acute infectious or inflammatory findings are identified in the abdomen or pelvis. 7. Hepatomegaly and hepatic steatosis. 8. Colonic diverticulosis without CT evidence of acute diverticulitis. 9. Cholelithiasis. 10. Additional findings as above. ACT 112: Negative or not required by law. Electronically signed by: Glenn Hudson M.D. 02/11/2022 4:20 PM PG Care Time/CCT Total # of Minutes Spent Total Time Spent with Patient: Total time spent is greater than 50% in coordination of care (as documented) at patient's floor/unit and/or counseling patient: Coding Level of Care Code 96567 Subseq Hosp Care Lvl 3 Diagnoses Acute on chronic respiratory failure with hypoxia and hypercapnia J96.21; J96.22 Acute on chronic diastolic (congestive) heart failure I50.33 UTI (urinary tract infection) N39.0 Pneumonia J18.9 Hyperkalemia E87.5 Dxvwf-dc-hyjszuy kidney injury N17.9; N18.9 Demand ischemia of myocardium I24.8 Anemia D64.9 DMII (diabetes mellitus, type 2) E11.9 Morbid obesity E66.01 History of pulmonary embolus (PE) Z86.711 Paroxysmal A-fib I48.0 Acute metabolic encephalopathy G93.41 Abdominal pain R10.9 History of duodenal ulcer Z87.19
[2022-02-11] MEDS: LANTUS PER UNIT CHARGE SQ SCH (21:23)
[2022-02-11] MEDS: ATORVASTATIN 20 MG TAB PO SCH (21:27)
--- NOTE | 2022-02-11 21:36 | Electrocardiogram Report ---
Test Reason : Blood Pressure : / mmHG Vent. Rate : 074 BPM Atrial Rate : 277 BPM P-R Int : 000 ms QRS Dur : 128 ms QT Int : 414 ms P-R-T Axes : 000 086 010 degrees QTc Int : 459 ms Poor data quality, interpretation may be adversely affected Normal sinus rhythm Premature atrial complexes Right bundle branch block Abnormal ECG When compared with ECG of 09-FEB-2022 08:54, Premature atrial complexes are now Present Confirmed by Rodrigo Nicholas ([id number]) on 02/11/2022 9:35:53 PM Referred By: [facility] Confirmed By:Rodrigo Nicholas
[2022-02-12] MEDS: IPRATROPIUM BROMIDE NEB SOLN 0.02% 2.5 ML VIAL INH SCH ×5 (01:14→19:05)
[2022-02-12] MEDS: LEVALBUTEROL 1.25MG/0.5ML NEB INH SCH ×5 (01:15→19:05)
[2022-02-12] MEDS: FAMOTIDINE 20 MG in SYRINGE 3 ML IV SCH ×4 (01:57→23:50)
[2022-02-12] MEDS: HEPARIN SOD 5,000 UNIT/0.5 ML VIAL SQ SCH ×3 (05:23→21:31)
[2022-02-12] MEDS: AMPICILLIN/SULBACTAM SOD 3,000 MG in 0.9 % SODIUM CHLORIDE 100 ML IV SCH ×5 (06:10→23:50)
[2022-02-12 07:51] LABS: Basophils # (auto) 0.03 K/uL (0-0.2); Basophils % (auto) 0.4 %; Eosinophils # (auto) 0.11 K/uL (0-0.50); Eosinophils % (auto) 1.5 %; Hematocrit (blood only) 29.8 % (34.1-44.9); Hemoglobin 8.9 g/dl (12.0-16.0); Immature Granulocytes # (auto) 0.02 K/uL (0.00-0.02); Immature Granulocytes % (auto) 0.3 %; Lymphocytes # (auto) 0.89 K/uL (1.2-3.4); Lymphocytes % (auto) 12.3 %; Mean Corpuscular Hemoglobin 28.8 pg (25.0-34.0); Mean Corpuscular Hgb Conc 29.9 g/dL (32.0-36.0); Mean Corpuscular Volume 96.4 fL (80.0-100.0); Mean Platelet Volume 9.5 fL (9.4-12.3); Monocytes # (auto) 0.48 K/uL (0.24-0.82); Monocytes % (auto) 6.6 %; Neutrophils # (auto) 5.71 K/uL (1.4-6.5); Neutrophils % (auto) 78.9 %; Platelet Count 260 K/uL (130-400); RDW Coefficient of Variation 14.4 % (11.5-14.5); RDW Standard Deviation 50.3 fL (36.4-46.3); Red Blood Count 3.09 M/uL (3.93-5.22); White Blood Count 7.24 K/ul (4.8-10.8)
[2022-02-12 08:11] LABS: Calcium 8.8 mg/dl (8.5-10.1); Creatinine Clr Calc Pharmacy 62.2 ml/min; Est GFR (African American) 62.5 ml/min; Est GFR (Non-African American) 53.9 ml/min; Magnesium 1.5 mg/dl (1.7-2.4); Potassium 4.1 mmol/L (3.5-5.1)
[2022-02-12] MEDS ORDERED: FUROSEMIDE INJ 20 MG/2 ML VIAL IV ONE (08:29)
[2022-02-12 08:34] LABS: Folate (Folic Acid) > 22.30 ng/ml (>5.38)
[2022-02-12 08:35] LABS: Vitamin B12 304 pg/ml (180-914)
[2022-02-12] MEDS: INSULIN ASPART PER UNIT SC SCH ×4 (09:25→21:01)
[2022-02-12] MEDS: LANTUS PER UNIT CHARGE SQ SCH ×2 (09:26→21:32)
[2022-02-12] MEDS: MAGNESIUM SULFATE / D5W 1 GM/100 ML BAG IV SCH ×3 (09:26→12:45)
[2022-02-12] MEDS: SUCRALFATE 1 GM/10 ML UDC PO SCH ×4 (09:30→21:32)
--- NOTE | 2022-02-12 17:09 | Electrocardiogram Report ---
Test Reason : Blood Pressure : / mmHG Vent. Rate : 078 BPM Atrial Rate : 078 BPM P-R Int : 200 ms QRS Dur : 136 ms QT Int : 396 ms P-R-T Axes : 073 087 001 degrees QTc Int : 451 ms Poor data quality, interpretation may be adversely affected Normal sinus rhythm with sinus arrhythmia Right bundle branch block Abnormal ECG When compared with ECG of 11-FEB-2022 09:05, Premature atrial complexes are no longer Present Confirmed by Rodrigo Nicholas ([id number] on 02/12/2022 5:09:11 PM Referred By: [facility] Confirmed By:Rodrigo Nicholas
[2022-02-12] MEDS ORDERED: LEVALBUTEROL HCL 1.25 MG/3 ML NEB ONE (19:02)
[2022-02-12] MEDS: ATORVASTATIN 20 MG TAB PO SCH (21:31)
--- NOTE | 2022-02-12 22:58 | Hospitalist Progress Note ---
Date of Service February 12, 2022 Assessment & Plan (1) Acute on chronic respiratory failure with hypoxia and hypercapnia: Plan: Continues to improve. Intubated HD #1. Extubated HD #2. CTA chest 02/11 - no PE, but evidence of b/l pneumonia and pulmonary edema. see below. O2 requirements nearly back to baseline. (2) Acute on chronic diastolic (congestive) heart failure: Plan: evidence of such clinically & radiographically s/p lasix IV yesterday and today IMPROVED cont nebs likely to need more diuresis tomorrow (3) UTI (urinary tract infection): Plan: 2nd klebsiella changed to unasyn today, but prior cefepime starting 02/09 would have sufficed as well thus, effective abx therapy is day #4 today plan 7 days in total (4) Pneumonia: Plan: b/l, as seen on CTA chest 02/11 day #4 adequate abx therapy downgraded cefepime to unasyn q6h today o2 sats stable plan 7 days in total of abx (5) Hyperkalemia: Plan: Potassium 6.9 in setting of acute respiratory failure, respiratory acidosis, CIERA on CKD on admission. Also had been on bactrim for UTI. resolved (6) Ayxrc-wj-vlphidb kidney injury: Plan: Cr mildly elevated at 1.32 at time of admission 1 today CIERA resolved (7) Demand ischemia of myocardium: Plan: Elevated trop, 43.7 on admission and trended upward after admission. No ACS however. serial EKGs w/o ischemic changes. (8) Anemia: Plan: Fe studies c/w Fe def - transferrin sat only 10%; ferritin high likely due to acute phase reactivity. Consider IV venofer. B12 is low-normal - replace 1000mcg po B12 daily. Folate wnl. (9) DMII (diabetes mellitus, type 2): Plan: add AM lantus in addition to PM lantus cont novolog SSI (10) Morbid obesity: Plan: BMI 58 (11) History of pulmonary embolus (PE): Plan: 07/2021 with b/l LE DVTs Rx 6 months of coumadin per records NO PE on CTA chest 02/11 (12) Paroxysmal A-fib: Plan: remains in NSR not on chronic anticoagulation?? high risk of embolic CVA from PAF (13) Acute metabolic encephalopathy: Plan: 2nd to numerous issues as above marked improvement today monitor (14) Abdominal pain: Plan: resolved may have been 2nd to gastritis or PUD (h/o duodenal ulcer) may have been 2nd to constipation (decent amount of stool seen on CT a/p on 02/11) cont carafate - plan 10 days of such cont H2 flores of note -- lipase wnl lfts wnl EKG w/o ischemic changes gallstones on CT, but no signs of cholecystitis allow diet as tolerated (15) History of duodenal ulcer: Plan: 07/2021 (16) Hypomagnesemia: Plan: replace IV repeat level am tomorrow (17) Mobitz type 1 second degree atrioventricular block: Plan: seen this afternoon on tele EKG unchanged today cont to monitor no higher degree block seen Plan updated pt's son extensively by phone 02/11 progressing Admission and Anticipated Discharge Date Admission Date: February 09, 2022 Subjective patient had episode this afternoon of type 1 mobitz AV block no higher degree block was seen otherwise NSR during the visit she reported she was "feeling much better" her speech was much more fluent today - no thought blocking or stuttering breathing is better eating better denied pain in any location asks when she can leave Review of Systems Review of Systems: gen - no fever cv - no orthopnea pulm - no dyspnea at rest GI - no abd pain, nausea or emesis ; did move her bowels today Physical Exam Physical Exam: gen - morbidly obese, looks much better today, speech clear & f luent neck - no obvious JVD mouth - MMM CV - irregular, s1 s2, regular rate, no murmur lungs - diffuse wheezes resolved today, tachypnea resolved, rales improved abd - distension resolved; NT; BS+, softer today ext - trace edema b/l, pulses 2+ b/l Results & Data Results & Data ([facility]) Vital Signs (Past 12 Hours) Vital Signs Temp Pulse Pulse Pulse Resp BP BP 02/12/22 20:00 02/12/22 19:26 36.9 C 85 18 169/72 H 02/12/22 19:05 66 18 02/12/22 16:06 36.5 C 81 18 144/69 H 02/12/22 15:18 72 02/12/22 13:01 82 18 02/12/22 11:30 36.9 C 96 H 18 94/67 L Pulse Ox O2 Del Method O2 Flow Rate 02/12/22 20:00 Nasal Cannula 3 02/12/22 19:26 94 Nasal Cannula 5 02/12/22 19:05 94 Nasal Cannula 5 02/12/22 16:06 97 Nasal Cannula 5 02/12/22 15:18 02/12/22 13:01 98 Nasal Cannula 5 02/12/22 11:30 93 Nasal Cannula 2 Laboratory Results Laboratory Results - last 24 hr 02/12/22 02/12/22 02/12/22 07:04 07:04 07:04 WBC 7.24 RBC 3.09 L Hgb 8.9 L Hct 29.8 L MCV 96.4 MCH 28.8 MCHC 29.9 L RDW Std Deviation 50.3 H RDW Coeff of Jacqueline 14.4 Plt Count 260 MPV 9.5 Immature Gran % (Auto) 0.3 Neut % (Auto) 78.9 Lymph % (Auto) 12.3 [place] % (Auto) 6.6 Eos % (Auto) 1.5 Baso % (Auto) 0.4 Neut # (Auto) 5.71 Lymph # (Auto) 0.89 L [place] # (Auto) 0.48 Eos # (Auto) 0.11 Baso # (Auto) 0.03 Immature Gran # (Auto) 0.02 Sodium 141 Potassium 4.1 Chloride 98 Carbon Dioxide 40 H Anion Gap 3 BUN 21 Creatinine 1.00 Est Cr Clr Drug Dosing 62.2 Est GFR ( Amer) 62.5 Est GFR (Non-Af Amer) 53.9 BUN/Creatinine Ratio 21.0 H Glucose 137 H POC Glucose Calcium 8.8 Magnesium 1.5 L Iron 23 L TIBC 233 L Unsaturated IBC 210 Transferrin % Sat 10 L Ferritin 319.0 Vitamin B12 Folate 02/12/22 02/12/22 02/12/22 07:04 07:09 11:02 WBC RBC Hgb Hct MCV MCH MCHC RDW Std Deviation RDW Coeff of Jacqueline Plt Count MPV Immature Gran % (Auto) Neut % (Auto) Lymph % (Auto) [place] % (Auto) Eos % (Auto) Baso % (Auto) Neut # (Auto) Lymph # (Auto) [place] # (Auto) Eos # (Auto) Baso # (Auto) Immature Gran # (Auto) Sodium Potassium Chloride Carbon Dioxide Anion Gap BUN Creatinine Est Cr Clr Drug Dosing Est GFR ( Amer) Est GFR (Non-Af Amer) BUN/Creatinine Ratio Glucose POC Glucose 175 H 237 H Calcium Magnesium Iron TIBC Unsaturated IBC Transferrin % Sat Ferritin Vitamin B12 304 Folate > 22.30 02/12/22 02/12/22 16:19 20:14 WBC RBC Hgb Hct MCV MCH MCHC RDW Std Deviation RDW Coeff of Jacqueline Plt Count MPV Immature Gran % (Auto) Neut % (Auto) Lymph % (Auto) [place] % (Auto) Eos % (Auto) Baso % (Auto) Neut # (Auto) Lymph # (Auto) [place] # (Auto) Eos # (Auto) Baso # (Auto) Immature Gran # (Auto) Sodium Potassium Chloride Carbon Dioxide Anion Gap BUN Creatinine Est Cr Clr Drug Dosing Est GFR ( Amer) Est GFR (Non-Af Amer) BUN/Creatinine Ratio Glucose POC Glucose 184 H 159 H Calcium Magnesium Iron TIBC Unsaturated IBC Transferrin % Sat Ferritin Vitamin B12 Folate PG Care Time/CCT Total # of Minutes Spent Total Time Spent with Patient: Total time spent is greater than 50% in coordination of care (as documented) at patient's floor/unit and/or counseling patient: Coding Level of Care Code 98890 Subseq Hosp Care Lvl 3 Diagnoses Acute on chronic respiratory failure with hypoxia and hypercapnia J96.21; J96.22 Acute on chronic diastolic (congestive) heart failure I50.33 UTI (urinary tract infection) N39.0 Pneumonia J18.9 Hyperkalemia E87.5 Nsmse-ko-korclvk kidney injury N17.9; N18.9 Demand ischemia of myocardium I24.8 Anemia D64.9 DMII (diabetes mellitus, type 2) E11.9 Morbid obesity E66.01 History of pulmonary embolus (PE) Z86.711 Paroxysmal A-fib I48.0 Acute metabolic encephalopathy G93.41 Abdominal pain R10.9 History of duodenal ulcer Z87.19 Hypomagnesemia E83.42 Mobitz type 1 second degree atrioventricular block I44.1
[2022-02-13] MEDS: LEVALBUTEROL 1.25MG/0.5ML NEB INH SCH ×4 (00:02→20:35)
[2022-02-13] MEDS: IPRATROPIUM BROMIDE NEB SOLN 0.02% 2.5 ML VIAL INH SCH ×4 (00:02→20:35)
[2022-02-13] MEDS: ACETAMINOPHEN 500 MG TAB PO PRN ×2 (00:37→23:57)
[2022-02-13] MEDS: MELATONIN 3 MG TAB PO PRN ×2 (00:37→23:58)
[2022-02-13] MEDS: AMPICILLIN/SULBACTAM SOD 3,000 MG in 0.9 % SODIUM CHLORIDE 100 ML IV SCH ×4 (06:20→23:57)
[2022-02-13] MEDS: HEPARIN SOD 5,000 UNIT/0.5 ML VIAL SQ SCH ×3 (06:20→21:09)
--- NOTE | 2022-02-13 07:26 | Electrocardiogram Report ---
Test Reason : Blood Pressure : / mmHG Vent. Rate : 078 BPM Atrial Rate : 078 BPM P-R Int : 192 ms QRS Dur : 142 ms QT Int : 404 ms P-R-T Axes : 054 072 001 degrees QTc Int : 460 ms Sinus rhythm with Premature atrial complexes Right bundle branch block Abnormal ECG When compared with ECG of 11-FEB-2022 09:06, Premature atrial complexes are now Present Confirmed by Wally Short ([id number]) on 02/13/2022 7:26:17 AM Referred By: [facility] Confirmed By:Pierre Short
[2022-02-13 07:58] LABS: BUN Creatinine Ratio 21.6 (10-20); Creatinine Clr Calc Pharmacy 55.8 ml/min; Est GFR (African American) 55.1 ml/min; Est GFR (Non-African American) 47.5 ml/min; Magnesium 1.9 mg/dl (1.7-2.4); Potassium 4.4 mmol/L (3.5-5.1)
[2022-02-13] MEDS: CYANOCOBALAMIN (B-12) 500 MCG TABLET PO SCH (08:18)
[2022-02-13] MEDS: SUCRALFATE 1 GM/10 ML UDC PO SCH ×4 (08:18→20:15)
[2022-02-13] MEDS: INSULIN ASPART PER UNIT SC SCH ×4 (08:23→21:09)
[2022-02-13] MEDS: LANTUS PER UNIT CHARGE SQ SCH ×2 (08:23→21:09)
[2022-02-13] MEDS ORDERED: FUROSEMIDE INJ 20 MG/2 ML VIAL IV ONE ×2 (09:00→17:00)
[2022-02-13] MEDS: FAMOTIDINE 20 MG in SYRINGE 3 ML IV SCH (14:25)
--- NOTE | 2022-02-13 14:28 | Hospitalist Progress Note ---
Date of Service February 13, 2022 Assessment & Plan (1) Acute on chronic respiratory failure with hypoxia and hypercapnia: Plan: 2nd to acute/chronic diastolic CHF & b/l pneumonia. Continues to improve. Intubated HD #1. Extubated HD #2. CTA chest 02/11 - no PE, but evidence of b/l pneumonia and pulmonary edema. see below. O2 requirements nearly back to baseline. (2) Acute on chronic diastolic (congestive) heart failure: Plan: IMPROVING give 2 doses of lasix IV today re-eval tomorrow cont nebs for wheezing (3) UTI (urinary tract infection): Plan: 2nd klebsiella changed to unasyn 02/12, but prior cefepime starting 02/09 would have sufficed as well thus, effective abx therapy is day #5 today plan 7 days in total (4) Pneumonia: Plan: b/l, as seen on CTA chest 02/11 day #5 adequate abx therapy downgraded cefepime to unasyn q6h on 02/12 o2 sats stable plan 7 days in total of abx (5) Hyperkalemia: Plan: Potassium 6.9 in setting of acute respiratory failure, respiratory acidosis, CIERA on CKD on admission. Also had been on bactrim for UTI. resolved (6) Iphgh-qr-pxgiius kidney injury: Plan: Cr mildly elevated at 1.32 at time of admission 1.1 today CIERA resolved (7) Demand ischemia of myocardium: Plan: Elevated trop, 43.7 on admission and trended upward after admission. No ACS however. serial EKGs w/o ischemic changes. (8) Anemia: Plan: Fe studies c/w Fe def - transferrin sat only 10%; ferritin high likely due to acute phase reactivity. Consider IV venofer. B12 is low-normal - replace 1000mcg po B12 daily. Folate wnl. Hemoglobins stable last few days. (9) DMII (diabetes mellitus, type 2): Plan: cont BID lantus adjust novolog SSI (10) Morbid obesity: Plan: BMI 58 (11) History of pulmonary embolus (PE): Plan: 07/2021 with b/l LE DVTs Rx 6 months of coumadin per records NO PE on CTA chest 02/11 (12) Paroxysmal A-fib: Plan: remains in NSR not on chronic anticoagulation?? high risk of embolic CVA from PAF (13) Acute metabolic encephalopathy: Plan: 2nd to numerous issues as above marked improvement yesterday and today (14) Abdominal pain: Plan: resolved may have been 2nd to gastritis or PUD (h/o duodenal ulcer) may have been 2nd to constipation (decent amount of stool seen on CT a/p on 02/11) cont carafate - plan 10 days of such cont H2 flores - can change to PO formulation today for constipation - dulcolax PO x 1; miralax if poor response then consider lactulose of note -- lipase wnl lfts wnl EKG w/o ischemic changes gallstones on CT, but no signs of cholecystitis allow diet as tolerated (15) History of duodenal ulcer: Plan: 07/2021 (16) Hypomagnesemia: Plan: replaced resolved (17) Mobitz type 1 second degree atrioventricular block: Plan: seen 02/12/22 on tele EKG unchanged cont to monitor no higher degree block seen Plan updated pt's son extensively by phone 02/11 and 02/13 progressing anticipate d/c on Thursday 02/15? Admission and Anticipated Discharge Date Admission Date: February 09, 2022 Subjective patient resting comfortably she is eating well per staff no BM in 48+ hours patient does feel "full" denies any dyspnea at rest wants to get OOB to chair no nausea or vomiting tele overnight wnl had 1500cc out with AM lasix today Review of Systems Review of Systems: gen - no fever cv - no chest pain pulm - mild cough but no sputum GI - no pain or discomfort; no pain with eating food Physical Exam Physical Exam: gen - morbidly obese, looks good today, mental status intact neck - no obvious JVD mouth - MMM CV - irregular, s1 s2, regular rate, no murmur lungs - scant wheezes b/l (most prominent when she coughs); rales improved/resolved abd - distension resolved; NT; BS+ ext - trace edema b/l, pulses 2+ b/l Results & Data Results & Data ([facility]) Vital Signs (Past 12 Hours) Vital Signs Temp Pulse Pulse Pulse Resp BP Pulse Ox 02/13/22 12:57 83 18 95 02/13/22 11:35 36.9 C 87 18 138/76 92 02/13/22 09:53 02/13/22 08:00 71 02/13/22 07:58 36.6 C 80 18 142/71 H 87 L 02/13/22 07:11 76 18 98 02/13/22 03:12 36.7 C 79 14 147/72 H 96 O2 Del Method O2 Flow Rate 02/13/22 12:57 Nasal Cannula 4 02/13/22 11:35 Nasal Cannula 4 02/13/22 09:53 Nasal Cannula 3 02/13/22 08:00 02/13/22 07:58 Nasal Cannula 3 02/13/22 07:11 Nasal Cannula 4 02/13/22 03:12 Nasal Cannula 3 Laboratory Results Laboratory Results - last 24 hr 02/12/22 02/12/22 02/13/22 16:19 20:14 06:04 Sodium 140 Potassium 4.4 Chloride 97 L Carbon Dioxide 38 H Anion Gap 5 BUN 24 H Creatinine 1.11 Est Cr Clr Drug Dosing 55.8 Est GFR ( Amer) 55.1 Est GFR (Non-Af Amer) 47.5 BUN/Creatinine Ratio 21.6 H Glucose 152 H POC Glucose 184 H 159 H Calcium 9.0 Magnesium 1.9 02/13/22 02/13/22 07:45 11:12 Sodium Potassium Chloride Carbon Dioxide Anion Gap BUN Creatinine Est Cr Clr Drug Dosing Est GFR ( Amer) Est GFR (Non-Af Amer) BUN/Creatinine Ratio Glucose POC Glucose 170 H 238 H Calcium Magnesium PG Care Time/CCT Total # of Minutes Spent Total Time Spent with Patient: Total time spent is greater than 50% in coordination of care (as documented) at patient's floor/unit and/or counseling patient: Coding Level of Care Code 60179 Subseq Hosp Care Lvl 3 Diagnoses Acute on chronic respiratory failure with hypoxia and hypercapnia J96.21; J96.22 Acute on chronic diastolic (congestive) heart failure I50.33 UTI (urinary tract infection) N39.0 Pneumonia J18.9 Hyperkalemia E87.5 Pzjxd-kk-opulwlb kidney injury N17.9; N18.9 Demand ischemia of myocardium I24.8 Anemia D64.9 DMII (diabetes mellitus, type 2) E11.9 Morbid obesity E66.01 History of pulmonary embolus (PE) Z86.711 Paroxysmal A-fib I48.0 Acute metabolic encephalopathy G93.41 Abdominal pain R10.9 History of duodenal ulcer Z87.19 Hypomagnesemia E83.42 Mobitz type 1 second degree atrioventricular block I44.1
[2022-02-13] MEDS ORDERED: bisacodyL 5 MG TABEC PO ONE (14:45)
[2022-02-13] MEDS: POLYETHYLENE (MIRALAX) 17 GM PACK PO SCH (15:22)
[2022-02-13] MEDS: ATORVASTATIN 20 MG TAB PO SCH (20:15)
[2022-02-13] MEDS: FAMOTIDINE 20 MG TAB PO SCH (22:01)
[2022-02-14] MEDS: IPRATROPIUM BROMIDE NEB SOLN 0.02% 2.5 ML VIAL INH SCH ×4 (01:05→19:33)
[2022-02-14] MEDS: LEVALBUTEROL 1.25MG/0.5ML NEB INH SCH ×4 (01:05→19:33)
[2022-02-14] MEDS: HEPARIN SOD 5,000 UNIT/0.5 ML VIAL SQ SCH ×3 (05:39→23:10)
[2022-02-14] MEDS: AMPICILLIN/SULBACTAM SOD 3,000 MG in 0.9 % SODIUM CHLORIDE 100 ML IV SCH ×4 (05:39→23:17)
[2022-02-14 08:19] LABS: Calcium 9.2 mg/dl (8.5-10.1); Creatinine Clr Calc Pharmacy 67.1 ml/min; Est GFR (African American) 68.2 ml/min; Est GFR (Non-African American) 58.9 ml/min; Potassium 4.2 mmol/L (3.5-5.1)
[2022-02-14] MEDS: SUCRALFATE 1 GM/10 ML UDC PO SCH ×4 (08:24→20:35)
[2022-02-14] MEDS: CYANOCOBALAMIN (B-12) 500 MCG TABLET PO SCH (08:24)
[2022-02-14] MEDS: FAMOTIDINE 20 MG TAB PO SCH ×2 (08:24→20:37)
[2022-02-14] MEDS: POLYETHYLENE (MIRALAX) 17 GM PACK PO SCH (08:24)
[2022-02-14] MEDS: INSULIN ASPART PER UNIT SC SCH ×4 (08:25→20:28)
[2022-02-14 08:26] LABS: Thyroid Stimulating Hormone 4.622 uIu/ml (0.300-4.500)
[2022-02-14] MEDS: LANTUS PER UNIT CHARGE SQ SCH ×2 (08:27→20:29)
[2022-02-14 08:58] LABS: T4 Free Thyroxine 0.73 ng/dl (0.61-1.60)
[2022-02-14] MEDS: acetaZOLAMIDE 250 MG TAB PO SCH ×2 (09:53→17:01)
[2022-02-14] MEDS ORDERED: LACTULOSE SYRUP 30 GM/45 ML UDP PO STA (14:58)
--- NOTE | 2022-02-14 20:29 | Hospitalist Progress Note ---
Date of Service February 14, 2022 Assessment & Plan (1) Acute on chronic respiratory failure with hypoxia and hypercapnia: Plan: 2nd to acute/chronic diastolic CHF & b/l pneumonia. acute component resolved. Had been intubated HD #1. Extubated HD #2. CTA chest 02/11 - no PE, but evidence of b/l pneumonia and pulmonary edema. see below. O2 requirements are back to her chronic baseline O2 requirements. (2) Acute on chronic diastolic (congestive) heart failure: Plan: IMPROVING likely approaching euvolemia or slightly dry HCO3 on BMP high at 44 today will not give lasix today start bumex 250mg BID x 3 days repeat BMP am (3) UTI (urinary tract infection): Plan: 2nd klebsiella changed to unasyn 02/12, but prior cefepime starting 02/09 would have sufficed as well thus, effective abx therapy is day #6 today plan 7 days in total (4) Pneumonia: Plan: b/l, as seen on CTA chest 02/11 day #6 adequate abx therapy downgraded cefepime to unasyn q6h on 02/12 o2 sats stable plan 7 days in total of abx (5) Hyperkalemia: Plan: Potassium 6.9 in setting of acute respiratory failure, respiratory acidosis, CIERA on CKD on admission. Also had been on bactrim for UTI. resolved (6) Xibff-ry-euvaeyh kidney injury: Plan: Cr mildly elevated at 1.32 at time of admission 0.9 today CIERA resolved (7) Demand ischemia of myocardium: Plan: Elevated trop, 43.7 on admission and trended upward after admission. No ACS however. serial EKGs w/o ischemic changes. (8) Anemia: Plan: Fe studies c/w Fe def - transferrin sat only 10%; ferritin high likely due to acute phase reactivity. Consider IV venofer. B12 is low-normal - replace 1000mcg po B12 daily. Folate wnl. Hemoglobins stable last few days. (9) DMII (diabetes mellitus, type 2): Plan: cont BID lantus cont novolog SSI controlled (10) Morbid obesity: Plan: BMI 58 (11) History of pulmonary embolus (PE): Plan: 07/2021 with b/l LE DVTs Rx 6 months of coumadin per records NO PE on CTA chest 02/11 (12) Paroxysmal A-fib: Plan: remains in NSR not on chronic anticoagulation?? high risk of embolic CVA from PAF will need to discuss this with her physician from [facility] (13) Acute metabolic encephalopathy: Plan: 2nd to numerous issues as above resolved (14) Abdominal pain: Plan: resolved may have been 2nd to gastritis or PUD (h/o duodenal ulcer) may have been 2nd to constipation (decent amount of stool seen on CT a/p on 02/11) cont carafate - plan 10 days of such cont H2 flores for constipation - ongoing despite multiple meds will give lactulose 30gm x 1 now of note -- lipase wnl lfts wnl EKG w/o ischemic changes gallstones on CT, but no signs of cholecystitis allow diet as tolerated (15) History of duodenal ulcer: Plan: 07/2021 (16) Hypomagnesemia: Plan: replaced resolved repeat level am (17) Mobitz type 1 second degree atrioventricular block: Plan: seen 02/12/22 on tele EKG unchanged cont to monitor no higher degree block seen Plan updated pt's son extensively by phone 02/11 and 02/13 progressing anticipate d/c on Thursday 02/15? Admission and Anticipated Discharge Date Admission Date: February 09, 2022 Subjective no bowel movement in several days despite such she has no nausea, vomiting or abdominal pain eating well patient denies any dyspnea still with mild cough no chest pain "I want to go home" Review of Systems Review of Systems: tele overnight - no mobitz seen; NSR cv - no orthopnea pulm - no dyspnea GI - as above - patient states she typically does not have a syed Physical Exam Physical Exam: gen - morbidly obese, watching TV, NAD neck - no obvious JVD mouth - MMM CV - irregular, s1 s2, regular rate, no murmur lungs - scant wheezes b/l; poor airation bases; no increased work of breathing abd - soft NT ND BS+ ext - trace edema b/l, pulses 2+ b/l Results & Data Results & Data ([facility]) Vital Signs (Past 12 Hours) Vital Signs Temp Pulse Resp BP BP Pulse Ox O2 Del Method 02/14/22 19:38 37.0 C 85 18 118/91 100 Nasal Cannula 02/14/22 19:34 81 20 92 Nasal Cannula 02/14/22 15:36 36.5 C 75 20 118/47 L 92 Nasal Cannula 02/14/22 12:53 83 18 94 Nasal Cannula 02/14/22 11:36 36.9 C 80 18 160/80 H 94 Nasal Cannula 02/14/22 09:29 Nasal Cannula O2 Flow Rate 02/14/22 19:38 3 02/14/22 19:34 3 02/14/22 15:36 3 02/14/22 12:53 3 02/14/22 11:36 3 02/14/22 09:29 3 Laboratory Results Laboratory Results - last 24 hr 02/14/22 02/14/22 02/14/22 07:37 07:37 07:37 Sodium 142 Potassium 4.2 Chloride 94 L Carbon Dioxide 44 H* Anion Gap 4 BUN 26 H Creatinine 0.93 Est Cr Clr Drug Dosing 67.1 Est GFR ( Amer) 68.2 Est GFR (Non-Af Amer) 58.9 BUN/Creatinine Ratio 28.0 H Glucose 134 H POC Glucose 121 H Calcium 9.2 TSH 4.622 H Free T4 0.73 02/14/22 02/14/22 02/14/22 10:58 16:06 19:56 Sodium Potassium Chloride Carbon Dioxide Anion Gap BUN Creatinine Est Cr Clr Drug Dosing Est GFR ( Amer) Est GFR (Non-Af Amer) BUN/Creatinine Ratio Glucose POC Glucose 131 H 171 H 174 H Calcium TSH Free T4 PG Care Time/CCT Total # of Minutes Spent Total Time Spent with Patient: Total time spent is greater than 50% in coordination of care (as documented) at patient's floor/unit and/or counseling patient: Coding Level of Care Code 42100 Subseq Hosp Care Lvl 2 Diagnoses Acute on chronic respiratory failure with hypoxia and hypercapnia J96.21; J96.22 Acute on chronic diastolic (congestive) heart failure I50.33 UTI (urinary tract infection) N39.0 Pneumonia J18.9 Hyperkalemia E87.5 Rmicq-yw-cvaoilp kidney injury N17.9; N18.9 Demand ischemia of myocardium I24.8 Anemia D64.9 DMII (diabetes mellitus, type 2) E11.9 Morbid obesity E66.01 History of pulmonary embolus (PE) Z86.711 Paroxysmal A-fib I48.0 Acute metabolic encephalopathy G93.41 Abdominal pain R10.9 History of duodenal ulcer Z87.19 Hypomagnesemia E83.42 Mobitz type 1 second degree atrioventricular block I44.1
[2022-02-14] MEDS: ATORVASTATIN 20 MG TAB PO SCH (20:37)
[2022-02-15] MEDS: LEVALBUTEROL 1.25MG/0.5ML NEB INH SCH ×4 (01:38→19:18)
[2022-02-15] MEDS: IPRATROPIUM BROMIDE NEB SOLN 0.02% 2.5 ML VIAL INH SCH ×4 (01:38→19:18)
[2022-02-15] MEDS: LEVOTHYROXINE SODIUM 25 MCG TABLET PO SCH ×2 (05:52→05:58)
[2022-02-15] MEDS: HEPARIN SOD 5,000 UNIT/0.5 ML VIAL SQ SCH ×3 (05:52→21:00)
[2022-02-15] MEDS: AMPICILLIN/SULBACTAM SOD 3,000 MG in 0.9 % SODIUM CHLORIDE 100 ML IV SCH (05:52)
[2022-02-15 06:46] LABS: Hematocrit (blood only) 31.9 % (34.1-44.9); Hemoglobin 9.5 g/dl (12.0-16.0); Mean Corpuscular Hemoglobin 29.4 pg (25.0-34.0); Mean Corpuscular Hgb Conc 29.8 g/dL (32.0-36.0); Mean Corpuscular Volume 98.8 fL (80.0-100.0); Mean Platelet Volume 9.2 fL (9.4-12.3); Platelet Count 298 K/uL (130-400); RDW Coefficient of Variation 13.7 % (11.5-14.5); RDW Standard Deviation 49.5 fL (36.4-46.3); Red Blood Count 3.23 M/uL (3.93-5.22)
[2022-02-15 07:17] LABS: BUN Creatinine Ratio 26.7 (10-20); Calcium 9.4 mg/dl (8.5-10.1); Creatinine Clr Calc Pharmacy 61.3 ml/min; Est GFR (African American) 61.7 ml/min; Est GFR (Non-African American) 53.3 ml/min; Magnesium 1.4 mg/dl (1.7-2.4); Potassium 4.1 mmol/L (3.5-5.1)
[2022-02-15] MEDS: INSULIN ASPART PER UNIT SC SCH ×4 (07:56→20:08)
[2022-02-15] MEDS: LANTUS PER UNIT CHARGE SQ SCH ×2 (07:58→21:01)
[2022-02-15] MEDS: AMOXICILLIN/CLAVULANATE 875 MG TAB PO SCH ×2 (08:54→16:57)
[2022-02-15] MEDS: acetaZOLAMIDE 250 MG TAB PO SCH (08:54)
[2022-02-15] MEDS: FAMOTIDINE 20 MG TAB PO SCH ×2 (08:54→20:06)
[2022-02-15] MEDS: POLYETHYLENE (MIRALAX) 17 GM PACK PO SCH (08:54)
[2022-02-15] MEDS: CYANOCOBALAMIN (B-12) 500 MCG TABLET PO SCH (08:54)
[2022-02-15] MEDS: SENNA 8.6 MG TAB PO SCH (08:54)
[2022-02-15] MEDS: SUCRALFATE 1 GM/10 ML UDC PO SCH ×4 (08:54→20:06)
[2022-02-15] MEDS: MAGNESIUM SULFATE / D5W 1 GM/100 ML BAG IV SCH ×3 (09:35→13:18)
--- NOTE | 2022-02-15 13:46 | Hospitalist Progress Note ---
Date of Service February 15, 2022 Assessment & Plan (1) Acute on chronic respiratory failure with hypoxia and hypercapnia: Plan: 2nd to acute/chronic diastolic CHF & b/l pneumonia. present on admission. presented with pCO2 of 125. Had been intubated HD #1. Extubated HD #2. Had remained on NC O2 since coming off the vent and had been stable until today. Now with recurrent, severe hypercarbic resp failure. cxr with worsening pulmonary edema/chf - this is despite aggressive diuresis over the last 3-4 days. CTA chest 02/11 - no PE, but evidence of b/l pneumonia and pulmonary edema. PLAN: * BIPAP now; suspect she will need BIPAP continuously for the rest of today/tonight * serial VBGs; increase BIPAP pressures as needed * lasix 40mg IV x 1 now * repeat echo - recheck EF, right sided function, etc (last echo 07/2021 with EF 60-65%; unable to visualize the RV) * moving forward - recommend HS BIPAP ongoing and upon discharge to the [place] [facility] * will need to qualify her for the BIPAP; consider pulmonary consult while here With respect to recurrent hypercarbia - 2nd to not ordering/using BIPAP since her ICU stay/intubation? 2nd to worsening CHF? Other? (2) Acute on chronic diastolic (congestive) heart failure: Plan: had been IMPROVING, then clinically & radiographically worse today had been about 7-8 liters negative for the stay up until today lasix 40mg IV x 1 now repeat echo in am BIPAP for #1 bmp am (3) UTI (urinary tract infection): Plan: 2nd klebsiella initially on cefepime, then unasyn (changed to unasyn 02/12), then augmentin thus, effective abx therapy is day #7 today plan had been 7 days in total (4) Pneumonia: Plan: b/l, as seen on CTA chest 02/11 day #7 adequate abx therapy initially on cefepime, then changed to unasyn q6h on 02/12, then augmentin o2 sats have been stable recurrent respiratory failure issues likely not from pneumonia but CHF plan had sujatha 7 days in total of abx (5) Hyperkalemia: Plan: Potassium 6.9 in setting of acute respiratory failure, respiratory acidosis, CIERA on CKD on admission. Also had been on bactrim for UTI. Resolved Has not recurred (6) Qobor-xe-amgndep kidney injury: Plan: Cr mildly elevated at 1.32 at time of admission 0.9 to 1 since then CIERA resolved (7) Demand ischemia of myocardium: Plan: Elevated trop, 43.7 on admission and trended upward after admission. No ACS however. serial EKGs w/o ischemic changes. (8) Anemia: Plan: Fe studies c/w Fe def - transferrin sat only 10%; ferritin high likely due to acute phase reactivity. Consider IV venofer but defer - other more pressing issues (#1). B12 is low-normal - replace 1000mcg po B12 daily. Folate wnl. Hemoglobins stable last few days. (9) DMII (diabetes mellitus, type 2): Plan: cont BID lantus cont novolog SSI controlled (10) Morbid obesity: Plan: BMI 58 (11) History of pulmonary embolus (PE): Plan: 07/2021 with b/l LE DVTs Rx 6 months of coumadin per records when she presented to [facility] For this admission it appears her coumadin had been stopped recently NO PE on CTA chest 02/11/22 (12) Paroxysmal A-fib: Plan: remains in NSR not on chronic anticoagulation?? high risk of embolic CVA from PAF given bed-bound status, PAF, prior h/o PE - consider lifelong coumadin (13) Acute metabolic encephalopathy: Plan: 2nd to numerous issues as above; today - hypercarbia BIPAP to resolve hypercarbia (14) Abdominal pain: Plan: resolved may have been 2nd to gastritis or PUD (h/o duodenal ulcer) may have been 2nd to constipation (decent amount of stool seen on CT a/p on 02/11) cont carafate - plan 10 days of such; day #5 of such cont H2 flores treat constipation of note -- lipase wnl lfts wnl EKG w/o ischemic changes gallstones on CT, but no signs of cholecystitis (15) History of duodenal ulcer: Plan: 07/2021 remains on H2 flores + carafate (16) Hypomagnesemia: Plan: replaced resolved then low again today; repleted 3 grams mag sulfate today repeat level am (17) Mobitz type 1 second degree atrioventricular block: Plan: seen 02/12/22 on tele EKG unchanged on 02/12/22 no symptoms; the episode was brief (seconds in duration) no recurrent mobitz since then cont to monitor Plan updated pt's son extensively by phone 02/11 and 02/13 and then again today he wishes for his mother to remain full code we were anticipating d/c back to SNF today but clearly that will not happen due to #1 total critical care time today due to #1 --- 45 minutes hypercarbic resp failure posed life-threatening situation to patient Admission and Anticipated Discharge Date Admission Date: February 09, 2022 Subjective during rounds patient was very sleepy, confused, and was simply MUCH different than the weekend when she tried to talk she could only do so in a few words before becoming dyspneic did NOT eat any breakfast nor lunch she was coughing during the visit I was unable to obtain any meaningful history or ROS today tele overnight wnl - NSR I noted audible wheezing just standing next to the bed I immediately called respiratory and asked them to place her on BIPAP she had been on her usual 3 L NC O2 prior to such Review of Systems Review of Systems: Unobtainable due to cognitive status Physical Exam Physical Exam: gen - morbidly obese, dyspneic, increased work of breathing, confused, very sleepy neck - suspected mild JVD mouth - MMM CV - RRR, s1 s2, no murmur lungs - b/l wheezes - worse than yesterday; rales bases; increased work of breathing with tachypnea, retractions; poor air movement abd - soft NT ND BS+ ext - trace edema b/l, pulses 2+ b/l psych - lethargic, oriented to person only Results & Data Results & Data ([facility]) Vital Signs (Past 12 Hours) Vital Signs Temp Pulse Pulse Resp BP Pulse Ox O2 Del Method 02/15/22 13:06 90 20 97 Nasal Cannula 02/15/22 12:18 36.9 C 69 20 178/74 H 95 02/15/22 09:00 67 02/15/22 09:00 Nasal Cannula 02/15/22 08:52 36.8 C 76 22 184/80 H 94 Nasal Cannula 02/15/22 07:13 80 18 89 L Nasal Cannula 02/15/22 03:33 36.9 C 80 18 155/61 H 94 Nasal Cannula O2 Flow Rate 02/15/22 13:06 4 02/15/22 12:18 02/15/22 09:00 02/15/22 09:00 3 02/15/22 08:52 4 02/15/22 07:13 5 02/15/22 03:33 Laboratory Results Laboratory Results - last 24 hr 02/14/22 02/14/22 02/15/22 16:06 19:56 06:10 WBC 7.60 RBC 3.23 L Hgb 9.5 L Hct 31.9 L MCV 98.8 MCH 29.4 MCHC 29.8 L RDW Std Deviation 49.5 H RDW Coeff of Jacqueline 13.7 Plt Count 298 MPV 9.2 L Sodium Potassium Chloride Carbon Dioxide Anion Gap BUN Creatinine Est Cr Clr Drug Dosing Est GFR ( Amer) Est GFR (Non-Af Amer) BUN/Creatinine Ratio Glucose POC Glucose 171 H 174 H Calcium Magnesium 02/15/22 02/15/22 02/15/22 06:10 07:30 11:26 WBC RBC Hgb Hct MCV MCH MCHC RDW Std Deviation RDW Coeff of Jacqueline Plt Count MPV Sodium 140 Potassium 4.1 Chloride 97 L Carbon Dioxide 39 H Anion Gap 4 BUN 27 H Creatinine 1.01 Est Cr Clr Drug Dosing 61.3 Est GFR ( Amer) 61.7 Est GFR (Non-Af Amer) 53.3 BUN/Creatinine Ratio 26.7 H Glucose 121 H POC Glucose 108 H 146 H Calcium 9.4 Magnesium 1.4 L Diagnostic Findings Chest X-Ray 02/15/22 13:42 SINGLE VIEW CHEST CLINICAL HISTORY: Congestive heart failure. Wheezing. FINDINGS: 2 AP, portable, upright chest radiographs are compared to study dated 02/10/2022 and correlated with chest CT dated 02/11/2022. The examination is degraded by portable technique, large body habitus, and patient rotation. The heart is enlarged. There is pulmonary vascular congestion with interstitial edema. There are layering pleural effusions with dependent consolidation. No pneumothorax is seen. The skeletal structures are osteopenic. The bony thorax is grossly intact. IMPRESSION: 1. Cardiomegaly with evidence of congestive failure and pulmonary edema. This has worsened as compared to the 02/10/2022 examination. 2. Layering pleural effusions with dependent consolidation. ACT 112: Negative or not required by law. Electronically signed by: Glenn Hudson M.D. 02/15/2022 2:35 PM PG Care Time/CCT Total # of Minutes Spent Total Time Spent with Patient: Total time spent is greater than 50% in coordination of care (as documented) at patient's floor/unit and/or counseling patient: Critical Care Time: Yes Total Critical Care Time: 45 Coding Level of Care Code None Diagnoses Acute on chronic respiratory failure with hypoxia and hypercapnia J96.21; J96.22 Acute on chronic diastolic (congestive) heart failure I50.33 UTI (urinary tract infection) N39.0 Pneumonia J18.9 Hyperkalemia E87.5 Lvjdd-tb-bjvzyhh kidney injury N17.9; N18.9 Demand ischemia of myocardium I24.8 Anemia D64.9 DMII (diabetes mellitus, type 2) E11.9 Morbid obesity E66.01 History of pulmonary embolus (PE) Z86.711 Paroxysmal A-fib I48.0 Acute metabolic encephalopathy G93.41 Abdominal pain R10.9 History of duodenal ulcer Z87.19 Hypomagnesemia E83.42 Mobitz type 1 second degree atrioventricular block I44.1 Additional Codes Critical Care Time - Critical Care Time: Yes ([id number]) Time Spent (min) 45 Comment critical care
--- NOTE | 2022-02-15 14:36 | XRay Report ---
SINGLE VIEW CHEST CLINICAL HISTORY: Congestive heart failure. Wheezing. FINDINGS: 2 AP, portable, upright chest radiographs are compared to study dated 02/10/2022 and correla alcides with chest CT dated 02/11/2022. The examination is degraded by portable technique, large body habi tus, and patient rotation. The heart is enlarged. There is pulmonary vascular congestion with inters titial edema. There are layering pleural effusions with dependent consolidation. No pneumothorax is s een. The skeletal structures are osteopenic. The bony thorax is grossly intact. IMPRESSION: 1. Cardiomegaly with evidence of congestive failure and pulmonary edema. This has worsened as compare d to the 02/10/2022 examination. 2. Layering pleural effusions with dependent consolidation. ACT 112: Negative or not required by law. Electronically signed by: Glenn Hudson M.D. 02/15/2022 2:35 PM
[2022-02-15] MEDS ORDERED: FUROSEMIDE 40 MG/4 ML VIAL IV ONE (15:14)
[2022-02-15 15:16] LABS: Base Excess VBG 11.8 mEq/L; HCO3 VBG 44 mmol/L; Oxygen Saturation VBG 63.2 %; PCO2 VBG 102 mmHg (38-50); PO2 VBG 40 mmHg; pH VBG 7.24 (7.36-7.41)
[2022-02-15] MEDS: NITROGLYCERIN 2% OINTMENT 30GM TUBE EXT SCH ×2 (16:23→21:00)
[2022-02-15 19:20] LABS: Base Excess VBG 11.4 mEq/L; HCO3 VBG 43 mmol/L; Oxygen Saturation VBG 63.5 %; PCO2 VBG 98 mmHg (38-50); PO2 VBG 39 mmHg; pH VBG 7.25 (7.36-7.41)
[2022-02-15] MEDS: ATORVASTATIN 20 MG TAB PO SCH (20:06)
[2022-02-15 22:35] LABS: Base Excess VBG 13.8 mEq/L; HCO3 VBG 44 mmol/L; Oxygen Saturation VBG < 60.0 %; PCO2 VBG 83 mmHg (38-50); PO2 VBG 35 mmHg; pH VBG 7.33 (7.36-7.41)
[2022-02-16] MEDS: LEVALBUTEROL 1.25MG/0.5ML NEB INH SCH ×4 (00:26→19:17)
[2022-02-16] MEDS: IPRATROPIUM BROMIDE NEB SOLN 0.02% 2.5 ML VIAL INH SCH ×4 (00:27→19:17)
[2022-02-16] MEDS: NITROGLYCERIN 2% OINTMENT 30GM TUBE EXT SCH ×3 (03:03→16:58)
[2022-02-16] MEDS: HEPARIN SOD 5,000 UNIT/0.5 ML VIAL SQ SCH ×3 (05:38→21:09)
[2022-02-16] MEDS: LEVOTHYROXINE SODIUM 25 MCG TABLET PO SCH (05:38)
[2022-02-16 05:50] LABS: Basophils # (auto) 0.03 K/uL (0-0.2); Basophils % (auto) 0.4 %; Eosinophils # (auto) 0.35 K/uL (0-0.50); Eosinophils % (auto) 5.2 %; Hematocrit (blood only) 31.8 % (34.1-44.9); Hemoglobin 9.6 g/dl (12.0-16.0); Immature Granulocytes # (auto) 0.02 K/uL (0.00-0.02); Immature Granulocytes % (auto) 0.3 %; Lymphocytes # (auto) 1.23 K/uL (1.2-3.4); Lymphocytes % (auto) 18.2 %; Mean Corpuscular Hemoglobin 29.1 pg (25.0-34.0); Mean Corpuscular Hgb Conc 30.2 g/dL (32.0-36.0); Mean Corpuscular Volume 96.4 fL (80.0-100.0); Mean Platelet Volume 9.4 fL (9.4-12.3); Monocytes # (auto) 0.58 K/uL (0.24-0.82); Monocytes % (auto) 8.6 %; Neutrophils # (auto) 4.54 K/uL (1.4-6.5); Neutrophils % (auto) 67.3 %; Platelet Count 315 K/uL (130-400); RDW Coefficient of Variation 13.7 % (11.5-14.5); RDW Standard Deviation 48.6 fL (36.4-46.3); White Blood Count 6.75 K/ul (4.8-10.8)
[2022-02-16 06:05] LABS: Base Excess VBG 15.2 mEq/L; HCO3 VBG 45 mmol/L; Oxygen Saturation VBG 61.4 %; PCO2 VBG 79 mmHg (38-50); PO2 VBG 38 mmHg; pH VBG 7.36 (7.36-7.41)
[2022-02-16 06:14] LABS: BUN Creatinine Ratio 31.9 (10-20); Calcium 9.8 mg/dl (8.5-10.1); Creatinine Clr Calc Pharmacy 67.9 ml/min; Est GFR (Non-African American) 60.4 ml/min; Magnesium 1.8 mg/dl (1.7-2.4); Potassium 4.3 mmol/L (3.5-5.1)
[2022-02-16] MEDS: INSULIN ASPART PER UNIT SC SCH ×4 (08:41→21:12)
[2022-02-16] MEDS: LANTUS PER UNIT CHARGE SQ SCH ×2 (08:41→21:13)
[2022-02-16] MEDS: CYANOCOBALAMIN (B-12) 500 MCG TABLET PO SCH (08:42)
[2022-02-16] MEDS: SUCRALFATE 1 GM/10 ML UDC PO SCH ×4 (08:42→21:09)
[2022-02-16] MEDS: FAMOTIDINE 20 MG TAB PO SCH ×2 (08:42→21:09)
[2022-02-16] MEDS: SENNA 8.6 MG TAB PO SCH (08:42)
[2022-02-16] MEDS: POLYETHYLENE (MIRALAX) 17 GM PACK PO SCH (08:42)
[2022-02-16] MEDS: AMOXICILLIN/CLAVULANATE 875 MG TAB PO SCH ×2 (08:42→16:58)
--- NOTE | 2022-02-16 09:00 | XCELERA ---
[id number] \\[id number]
--- NOTE | 2022-02-16 17:55 | Hospitalist Progress Note ---
Date of Service February 16, 2022 Assessment & Plan (1) Acute on chronic respiratory failure with hypoxia and hypercapnia: Plan: 2nd to acute/chronic diastolic CHF & b/l pneumonia. present on admission. presented with pCO2 of 125. Had been intubated HD #1. Extubated HD #2. Had remained on NC O2 since coming off the vent and had been stable until 02/15 when she became altered and had recurrent hypercarbia with VBG 7.24/102 cxr with worsening pulmonary edema/chf - this is despite aggressive diuresis over the last 3-4 days. CTA chest 02/11 - no PE, but evidence of b/l pneumonia and pulmonary edema. Now much improved after wearing BiPAP continuously 02/15 into 02/16 and receiving one dose of lasix 40mg IV * repeat echo - recheck EF, right sided function, etc (last echo 07/2021 with EF 60-65%; unable to visualize the RV)--> normal * moving forward - recommend HS BIPAP ongoing and upon discharge to the snf -tried to arrange this today but not able to get BiPAP so ordered Trilogy with setting recommendations made by PULM (2) Acute on chronic diastolic (congestive) heart failure: Plan: had been IMPROVING, then clinically & radiographically worse with hypercarbic resp failure as above had been about 7-8 liters negative for the stay up until today diuresed and improved (3) UTI (urinary tract infection): Plan: 2nd klebsiella initially on cefepime, then unasyn (changed to unasyn 02/12), then augmentin now completed therapy (4) Pneumonia: Plan: b/l, as seen on CTA chest 02/11 treated with 7 days of adequate abx therapy initially on cefepime, then changed to unasyn q6h on 02/12, then augmentin o2 sats have been stable recurrent respiratory failure issues likely not from pneumonia but CHF (5) Hyperkalemia: Plan: Potassium 6.9 in setting of acute respiratory failure, respiratory acidosis, CIERA on CKD on admission. Also had been on bactrim for UTI. Resolved Has not recurred (6) Qqvdp-uz-gmkjgdd kidney injury: Plan: Cr mildly elevated at 1.32 at time of admission 0.9 to 1 since then CIERA resolved (7) Demand ischemia of myocardium: Plan: Elevated trop, 43.7 on admission and trended upward after admission. No ACS however. serial EKGs w/o ischemic changes. (8) Anemia: Plan: Fe studies c/w Fe def - transferrin sat only 10%; ferritin high likely due to acute phase reactivity. Consider IV venofer but defer - other more pressing issues (#1). B12 is low-normal - replace 1000mcg po B12 daily. Folate wnl. Hemoglobins stable last few days. (9) DMII (diabetes mellitus, type 2): Plan: cont BID lantus cont novolog SSI controlled (10) Morbid obesity: Plan: BMI 58 (11) History of pulmonary embolus (PE): Plan: 07/2021 with b/l LE DVTs Rx 6 months of coumadin per records when she presented to [facility] For this admission it appears her coumadin had been stopped recently NO PE on CTA chest 02/11/22 (12) Paroxysmal A-fib: Plan: remains in NSR not on chronic anticoagulation?? perhaps due to h/o bleeding high risk of embolic CVA from PAF given bed-bound status, PAF, prior h/o PE - consider lifelong coumadin (13) Acute metabolic encephalopathy: Plan: 2nd to numerous issues as above; today - hypercarbia BIPAP to resolve hypercarbia (14) Abdominal pain: Plan: resolved may have been 2nd to gastritis or PUD (h/o duodenal ulcer) may have been 2nd to constipation (decent amount of stool seen on CT a/p on 02/11) cont carafate - plan 10 days of such; day #6 of such cont H2 flores treat constipation of note -- lipase wnl lfts wnl EKG w/o ischemic changes gallstones on CT, but no signs of cholecystitis (15) History of duodenal ulcer: Plan: 07/2021 remains on H2 flores + carafate (16) Hypomagnesemia: Plan: replaced resolved (17) Mobitz type 1 second degree atrioventricular block: Plan: seen 02/12/22 on tele EKG unchanged on 02/12/22 no symptoms; the episode was brief (seconds in duration) no recurrent mobitz since then cont to monitor Plan Previous hospitalist updated pt's son extensively by phone 02/11 and 02/13, 02/15 he wishes for his mother to remain full code Dispo-medically stable for discharge today but awaiting for Trilogy machine to be ordered in to snf-should not be discharged until this is available at her snf Admission and Anticipated Discharge Date Admission Date: February 09, 2022 Subjective Pt anxious for discharge and cantankerous. She c/o needing to change positions in the bed. She tolerated BiPAP all last night. Said she'll wear the mask if she has to but she doesn't like it. Denies CP, SOB. She has no other complaints. Tele with NSR, 60-70s Review of Systems Review of Systems: All systems reviewed & are unremarkable except as noted in HPI & below Physical Exam Physical Exam: gen - morbidly obese, AAOx3 CV - RRR, s1 s2, no murmur lungs -poor air movement, diminished BS throughout due to body habitus, +exp wheezes abd - soft NT ND BS+ ext - trace edema b/l, pulses 2+ b/l Skin-dry skin on legs Results & Data Results & Data ([facility]) Vital Signs (Past 12 Hours) Vital Signs Temp Pulse Pulse Resp BP Pulse Ox O2 Del Method 02/16/22 16:00 58 L 02/16/22 15:50 36.8 C 75 18 172/77 H 92 Nasal Cannula 02/16/22 12:05 84 20 96 Nasal Cannula 02/16/22 11:23 36.6 C 78 18 130/68 96 Nasal Cannula 02/16/22 09:00 Nasal Cannula, BiPAP 02/16/22 09:00 65 02/16/22 07:27 36.9 C 62 18 134/82 98 BiPAP 02/16/22 07:24 62 27 H 98 02/16/22 07:24 62 27 H 98 BiPAP O2 Flow Rate FiO2 02/16/22 16:00 02/16/22 15:50 3 02/16/22 12:05 3 02/16/22 11:23 02/16/22 09:00 3 02/16/22 09:00 02/16/22 07:27 02/16/22 07:24 35 02/16/22 07:24 35 Laboratory Results 02/16/22 02/16/22 02/16/22 Range/Units 16:18 11:21 07:24 WBC (4.8-10.8) K/ul RBC (3.93-5.22) M/uL Hgb (12.0-16.0) g/dl Hct (34.1-44.9) % MCV (80.0-100.0) fL MCH (25.0-34.0) pg MCHC (32.0-36.0) g/dL RDW Std Deviation (36.4-46.3) fL RDW Coeff of Jacqueline (11.5-14.5) % Plt Count (130-400) K/uL MPV (9.4-12.3) fL Immature Gran % (Auto) % Neut % (Auto) % Lymph % (Auto) % [place] % (Auto) % Eos % (Auto) % Baso % (Auto) % Neut # (Auto) (1.4-6.5) K/uL Lymph # (Auto) (1.2-3.4) K/uL [place] # (Auto) (0.24-0.82) K/uL Eos # (Auto) (0-0.50) K/uL Baso # (Auto) (0-0.2) K/uL Immature Gran # (Auto) (0.00-0.02) K/uL VBG pH (7.36-7.41) VBG pCO2 (38-50) mmHg VBG pO2 mmHg VBG HCO3 mmol/L VBG O2 Saturation % VBG Base Excess mEq/L Sodium (136-145) mmol/L Potassium (3.5-5.1) mmol/L Chloride (98-107) mmol/L Carbon Dioxide (21-32) mmol/L Anion Gap (3-11) BUN (6-23) mg/dl Creatinine (0.6-1.2) mg/dl Est Cr Clr Drug Dosing ml/min Est GFR ( Amer) ml/min Est GFR (Non-Af Amer) ml/min BUN/Creatinine Ratio (10-20) Glucose (70-99(Fasting)) mg/dl POC Glucose 187 H 213 H 103 H (70-99) mg/dl Calcium (8.5-10.1) mg/dl Magnesium (1.7-2.4) mg/dl 02/16/22 02/16/22 02/16/22 Range/Units 05:26 05:20 05:20 WBC 6.75 (4.8-10.8) K/ul RBC 3.30 L (3.93-5.22) M/uL Hgb 9.6 L (12.0-16.0) g/dl Hct 31.8 L (34.1-44.9) % MCV 96.4 (80.0-100.0) fL MCH 29.1 (25.0-34.0) pg MCHC 30.2 L (32.0-36.0) g/dL RDW Std Deviation 48.6 H (36.4-46.3) fL RDW Coeff of Jacqueline 13.7 (11.5-14.5) % Plt Count 315 (130-400) K/uL MPV 9.4 (9.4-12.3) fL Immature Gran % (Auto) 0.3 % Neut % (Auto) 67.3 % Lymph % (Auto) 18.2 % Larimer % (Auto) 8.6 % Eos % (Auto) 5.2 % Baso % (Auto) 0.4 % Neut # (Auto) 4.54 (1.4-6.5) K/uL Lymph # (Auto) 1.23 (1.2-3.4) K/uL Lar[place] # (Auto) 0.58 (0.24-0.82) K/uL Eos # (Auto) 0.35 (0-0.50) K/uL Baso # (Auto) 0.03 (0-0.2) K/uL Immature Gran # (Auto) 0.02 (0.00-0.02) K/uL VBG pH 7.36 (7.36-7.41) VBG pCO2 79 H (38-50) mmHg VBG pO2 38 mmHg VBG HCO3 45 mmol/L VBG O2 Saturation 61.4 % VBG Base Excess 15.2 mEq/L Sodium 138 (136-145) mmol/L Potassium 4.3 (3.5-5.1) mmol/L Chloride 96 L (98-107) mmol/L Carbon Dioxide 37 H (21-32) mmol/L Anion Gap 5 (3-11) BUN 29 H (6-23) mg/dl Creatinine 0.91 (0.6-1.2) mg/dl Est Cr Clr Drug Dosing 67.9 ml/min Est GFR ( Amer) 70.0 ml/min Est GFR (Non-Af Amer) 60.4 ml/min BUN/Creatinine Ratio 31.9 H (10-20) Glucose 107 H (70-99(Fasting)) mg/dl POC Glucose (70-99) mg/dl Calcium 9.8 (8.5-10.1) mg/dl Magnesium 1.8 (1.7-2.4) mg/dl 02/15/22 02/15/22 02/15/22 Range/Units 22:30 20:07 18:43 WBC (4.8-10.8) K/ul RBC (3.93-5.22) M/uL Hgb (12.0-16.0) g/dl Hct (34.1-44.9) % MCV (80.0-100.0) fL MCH (25.0-34.0) pg MCHC (32.0-36.0) g/dL RDW Std Deviation (36.4-46.3) fL RDW Coeff of Jacqueline (11.5-14.5) % Plt Count (130-400) K/uL MPV (9.4-12.3) fL Immature Gran % (Auto) % Neut % (Auto) % Lymph % (Auto) % Lar[place] % (Auto) % Eos % (Auto) % Baso % (Auto) % Neut # (Auto) (1.4-6.5) K/uL Lymph # (Auto) (1.2-3.4) K/uL [place] # (Auto) (0.24-0.82) K/uL Eos # (Auto) (0-0.50) K/uL Baso # (Auto) (0-0.2) K/uL Immature Gran # (Auto) (0.00-0.02) K/uL VBG pH 7.33 L 7.25 L (7.36-7.41) VBG pCO2 83 H 98 H (38-50) mmHg VBG pO2 35 39 mmHg VBG HCO3 44 43 mmol/L VBG O2 Saturation < 60.0 63.5 % VBG Base Excess 13.8 11.4 mEq/L Sodium (136-145) mmol/L Potassium (3.5-5.1) mmol/L Chloride (98-107) mmol/L Carbon Dioxide (21-32) mmol/L Anion Gap (3-11) BUN (6-23) mg/dl Creatinine (0.6-1.2) mg/dl Est Cr Clr Drug Dosing ml/min Est GFR ( Amer) ml/min Est GFR (Non-Af Amer) ml/min BUN/Creatinine Ratio (10-20) Glucose (70-99(Fasting)) mg/dl POC Glucose 122 H (70-99) mg/dl Calcium (8.5-10.1) mg/dl Magnesium (1.7-2.4) mg/dl PG Care Time/CCT Total # of Minutes Spent Total Time Spent with Patient: Total time spent is greater than 50% in coordination of care (as documented) at patient's floor/unit and/or counseling patient: Coding Level of Care Code 70391 Subseq Hosp Care Lvl 2 Diagnoses Acute on chronic respiratory failure with hypoxia and hypercapnia J96.21; J96.22 Acute on chronic diastolic (congestive) heart failure I50.33 UTI (urinary tract infection) N39.0 Pneumonia J18.9 Hyperkalemia E87.5 Cmuot-ws-izyxear kidney injury N17.9; N18.9 Demand ischemia of myocardium I24.8 Anemia D64.9 DMII (diabetes mellitus, type 2) E11.9 Morbid obesity E66.01 History of pulmonary embolus (PE) Z86.711 Paroxysmal A-fib I48.0 Acute metabolic encephalopathy G93.41 Abdominal pain R10.9 History of duodenal ulcer Z87.19 Hypomagnesemia E83.42 Mobitz type 1 second degree atrioventricular block I44.1
[2022-02-16] MEDS ORDERED: amLODIPine BESYLATE 5 MG TAB PO ONE (18:03)
[2022-02-16] MEDS: ATORVASTATIN 20 MG TAB PO SCH (21:09)
[2022-02-17] MEDS: LEVALBUTEROL 1.25MG/0.5ML NEB INH SCH ×3 (00:09→12:48)
[2022-02-17] MEDS: IPRATROPIUM BROMIDE NEB SOLN 0.02% 2.5 ML VIAL INH SCH ×3 (00:10→12:48)
[2022-02-17] MEDS: LEVOTHYROXINE SODIUM 25 MCG TABLET PO SCH (06:03)
[2022-02-17] MEDS: HEPARIN SOD 5,000 UNIT/0.5 ML VIAL SQ SCH (06:03)
[2022-02-17] MEDS: SENNA 8.6 MG TAB PO SCH (08:34)
[2022-02-17] MEDS: FAMOTIDINE 20 MG TAB PO SCH (08:34)
[2022-02-17] MEDS: CYANOCOBALAMIN (B-12) 500 MCG TABLET PO SCH (08:35)
[2022-02-17] MEDS: SUCRALFATE 1 GM/10 ML UDC PO SCH ×2 (08:35→14:14)
[2022-02-17] MEDS: POLYETHYLENE (MIRALAX) 17 GM PACK PO SCH (08:35)
[2022-02-17] MEDS: AMOXICILLIN/CLAVULANATE 875 MG TAB PO SCH (08:35)
[2022-02-17] MEDS ORDERED: amLODIPine BESYLATE 5 MG TAB PO SCH (09:00)
[2022-02-17] MEDS: INSULIN ASPART PER UNIT SC SCH ×2 (09:08→12:36)
[2022-02-17] MEDS: LANTUS PER UNIT CHARGE SQ SCH (09:09)
--- NOTE | 2022-02-17 11:40 | Discharge Summary ---
Date of Service February 17, 2022 Admission HPI Per Admitting Provider Patricia Don is a 76-year female with past medical history significant for KENAN, paroxysmal A. fib, DM2, hypertension, hyperlipidemia, HFpEF, GERD, pulmonary hypertension, O2 requirement of 2-3 L who is presenting today from [facility] for being minimally responsive for staff. Patient is currently altered and intubated, therefore history is obtained primarily from ED provider. Patient has been treated with several antibiotics for UTI at [facility]. Patient was responsive to name only. Vital signs were checked. She is chronically on 2-3 L of O2, was found to be 66% on her usual oxygen requirement. EMS was called to transfer patient to ED for further evaluation. Initial POC AB.13/128/85/43/47. Patient was placed on BiPAP, repeat blood gas did not show improvement after BiPAP, therefore decision was made to intubate patient in ED. She was successfully intubated and placed on a propofol drip, however became hypotensive, so IVF was given and BP normalized. Labs also significant for POC potassium 6.5. Patient was given IV calcium, insulin with dextrose, and sodium bicarb. Repeat ABG after intubation reveals pH improved to 7.34, PCO2 74, O2 85, bicarb still elevated at 40. Potassium improved to 5.6. Labs otherwise significant for stable hemoglobin 10.3, glucose in 200s, creatinine slightly elevated 1.32, Trope 43.7, BNP 227. Lactate on presentation 0.8. No other electrolyte abnormalities. UA with some evidence of infection with 1030 WBCs, 1+ leuk esterase, 1+ bacteria, however with >30 epithelial cells. In addition to the above treatment for respiratory acidosis and hyperkalemia, patient was given empiric vancomycin and cefepime, as well as 1 L IVF. She will be admitted to the ICU for further care. Principal Diagnosis Acute on chronic respiratory failure with hypoxia and hypercarbia, Pneumonia, UTI, CIERA, Hyperkalemia Discharge Exam gen - morbidly obese, AAOx3 CV - RRR, s1 s2, no murmur lungs -poor air movement, diminished BS throughout due to body habitus, clear to ausculation abd - soft NT ND BS+ ext - trace edema b/l, pulses 2+ b/l Skin-dry skin on legs Discharge Data Allergies Allergy/AdvReac Type Severity Reaction Status Date / Time No Known Allergies Allergy Mild Verified 07/23/21 18:29 Consultations 02/09/22 12:46 Consult Sprayer Machine Routine 02/09/22 12:48 ED Decision to Admit Stat Ordered Studies 02/11/22 08:05 CT angio chest PE protocol Routine 02/11/22 10:16 CT Abd and Pelvis [CT abd pelvis IV con only] Routine Hospital Course (1) Acute on chronic respiratory failure with hypoxia and hypercapnia: 2nd to acute/chronic diastolic CHF & b/l pneumonia. present on admission. presented with pCO2 of 125. Had been intubated HD #1. Extubated HD #2. CTA chest 02/11 - no PE, but evidence of b/l pneumonia and pulmonary edema. Had remained on NC O2 since coming off the vent and had been stable until 02/15 when she became altered and had recurrent hypercarbia with VBG 7. cxr with worsening pulmonary edema/chf - this is despite aggressive diuresis Now much improved after wearing BiPAP continuously 02/15 into 02/16 and receiving one dose of lasix 40mg IV * repeat echo - recheck EF, right sided function, etc (last echo 07/2021 with EF 60-65%; unable to visualize the RV)--> normal except mild MS * moving forward - recommend HS Trilogy ongoing and upon discharge to the alf - with setting recommendations made by PULM and recommend formal sleep study as outpatient for full titration (2) Acute on chronic diastolic (congestive) heart failure: had been IMPROVING, then clinically & radiographically worse with hypercarbic resp failure as above had been about 7-8 liters negative for the stay up until today diuresed and improved (3) UTI (urinary tract infection): 2nd klebsiella initially on cefepime, then unasyn (changed to unasyn 02/12), then augmentin now completed therapy (4) Pneumonia: b/l, as seen on CTA chest 02/11 treated with 7 days of adequate abx therapy initially on cefepime, then changed to unasyn q6h on 02/12, then augmentin o2 sats have been stable recurrent respiratory failure issues likely not from pneumonia but CHF (5) Hyperkalemia: Potassium 6.9 in setting of acute respiratory failure, respiratory acidosis, CIERA on CKD on admission. Also had been on bactrim for UTI. Resolved Has not recurred (6) [id number]-zy-jrcczxi kidney injury: Cr mildly elevated at 1.32 at time of admission, with hyperkalemia 0.9 to 1 since then CIERA resolved ok to resume lisinopril (7) Demand ischemia of myocardium: Elevated trop, 43.7 on admission and trended upward after admission. No ACS however. serial EKGs w/o ischemic changes. (8) Anemia: Fe studies c/w Fe def - transferrin sat only 10%; ferritin high likely due to acute phase reactivity. Consider IV venofer but defer - other more pressing issues (#1). B12 is low-normal - replace 1000mcg po B12 daily. Folate wnl. Hemoglobins stable last few days. (9) DMII (diabetes mellitus, type 2): continue Lantus but requiring lower doses here than at [facility]--> decrease ome dose to 40 units hs for now and adjust back up as needed cont novolog SSI controlled (10) Morbid obesity: BMI 58 (11) History of pulmonary embolus (PE): 07/2021 with b/l LE DVTs Rx 6 months of coumadin per records when she presented to [facility] For this admission it appears her coumadin had been stopped recently NO PE on CTA chest 02/11/22 (12) Paroxysmal A-fib: remains in NSR not on chronic anticoagulation?? perhaps due to h/o bleeding-defer to PCP to restart if felt necessary high risk of embolic CVA from PAF given bed-bound status, PAF, prior h/o PE - consider lifelong coumadin (13) Acute metabolic encephalopathy: 2nd to numerous issues as above; resolved BIPAP to resolve hypercarbia (14) Abdominal pain: resolved may have been 2nd to gastritis or PUD (h/o duodenal ulcer) may have been 2nd to constipation (decent amount of stool seen on CT a/p on 02/11) cont carafate -needs one more week cont H2 flores treat constipation of note -- lipase wnl lfts wnl EKG w/o ischemic changes gallstones on CT, but no signs of cholecystitis (15) History of duodenal ulcer: 07/2021 remains on H2 flores + carafate (16) Hypomagnesemia: replaced resolved (17) Mobitz type 1 second degree atrioventricular block: seen 02/12/22 on tele EKG unchanged on 02/12/22 no symptoms; the episode was brief (seconds in duration) no recurrent mobitz since then cont to monitor Plan Previous hospitalist updated pt's son extensively by phone 02/11 and 02/13, 02/15 he wishes for his mother to remain full code Dispo-medically stable for discharge today with Trilogy machine to be delivered to alf Total Time Total Time Spent Total Time Spent (In Minutes): 35 min Discharge Plan Discharge Items Patient Disposition: Transfer Group Home Fac Reason For Visit: ACUTE ON CHRONIC RESPIRATORY FAILURE Discharge Diagnosis: Acute on chronic respiratory failure with hypoxia and hypercarbia, Pneumonia, UTI, CIERA, Hyperkalemia Activity: Resume your previous activity Non-emergency contact: Primary Care Provider Call non-emergency contact if: you have any medication questions and your symptoms worsen Follow-up/Referrals: [facility] [Primary Care Provider] - Diet: Carb Consistent or DM2 and Heart Healthy Addtl Attending Provider Instructions: You were admitted with respiratory failure requiring intubation and placement on a mechanical ventilator. It is very important that you wear the Trilogy facemask/machine every night and with naps during the day for sleep to prevent future respiratory failure. It is recommended that you have a formal sleep study performed as an outpatient to further adjust the proper settings for your Trilogy machine and/or switch to a BiPAP. You completed all your antibiotics for your pneumonia and UTI. Pending Studies at Discharge: No Stand-Alone Forms: My [facility] Skilled Items Patient informed of condition?: Yes DNR: No Discharge Level of Care: Skilled Communicable Disease: No Discharge Prognosis: Improving Lines: None Urinary Catheter: No Medications and DC Order Prescriptions: New famotidine 20 mg Tablet 20 mg PO BID Qty: 60 0RF sennosides [Senokot] 8.6 mg Tablet 17.2 mg PO QAM Qty: 60 0RF sucralfate 100 mg/mL Suspension 1 g PO QID 7 Days Qty: 280 0RF levothyroxine [Synthroid] 25 mcg Tablet 25 mcg PO DAILYBB Qty: 30 0RF cyanocobalamin (vitamin B-12) 1,000 mcg tablet 1,000 mcg PO DAILY Qty: 30 0RF Continued atorvastatin [Lipitor] 20 mg tablet 20 mg PO QPM ferrous sulfate 325 mg (65 mg iron) tablet 325 mg PO DAILY Novolin R Flexpen 100 unit/mL (3 mL) insulin pen 10 unit SUBCUT AC omega 7-imv-mph-fish oil [Fish Oil] 1,000 mg (120 mg-180 mg) Capsule 1 cap PO BIDM multivitamin Tablet 1 tab PO DAILY Rx Instructions: gummies lisinopril 5 mg tablet 5 mg PO DAILY polyethylene glycol 3350 [Miralax] 17 gram Powder In Packet 17 g PO DAILY PRN (Reason: constipation) Qty: 30 0RF Changed insulin glargine [Lantus Solostar U-100 Insulin] 100 unit/mL (3 mL) insulin pen 40 unit subcut QPM Qty: 15 0RF Discontinued sulfamethoxazole-trimethoprim 800-160 mg tablet 1 tab PO Q12 Discharge Orders: Discharge Order (Routine); Ordered 02/17/22 Ordered By: Liliana Melgar Admission Data Admit Date/Time: 02/09/22 11:38 Attending Provider: Liliana Melgar Admit Provider: Ivet Boateng Primary Care Provider: [place] [place] Other Providers: [place] [place] ; Hay Shepherd ; Liliana Melgar Coding Level of Care Code D/C DAY MANAGEMENT >30 MINS Diagnoses Acute on chronic respiratory failure with hypoxia and hypercapnia J96.21; J96.22 Acute on chronic diastolic (congestive) heart failure I50.33 UTI (urinary tract infection) N39.0 Pneumonia J18.9 Hyperkalemia E87.5 [id number] kidney injury N17.9; N18.9 Demand ischemia of myocardium I24.8 Anemia D64.9 DMII (diabetes mellitus, type 2) E11.9 Morbid obesity E66.01 History of pulmonary embolus (PE) Z86.711 Paroxysmal A-fib I48.0 Acute metabolic encephalopathy G93.41 Abdominal pain R10.9 History of duodenal ulcer Z87.19 Hypomagnesemia E83.42 Mobitz type 1 second degree atrioventricular block I44.1
== END 2022-02-17 15:53 | DRG 208 ==
LOC: ED 08:44 → 1E 11:38 → SUATTDRO 11:38 → 1E 12:41 → 2E 02-10 20:22
DX: Z95.2 Presence of prosthetic heart valve; K26.9 Duodenal ulcer, unspecified as acute or chronic, without hemorrhage or perforation; D64.9 Anemia, unspecified; I48.0 Paroxysmal atrial fibrillation; K29.70 Gastritis, unspecified, without bleeding; J18.9 Pneumonia, unspecified organism; I11.0 Hypertensive heart disease with heart failure; N39.0 Urinary tract infection, site not specified; I24.8 Other forms of acute ischemic heart disease; E87.5 Hyperkalemia; K59.00 Constipation, unspecified; Z99.81 Dependence on supplemental oxygen; I44.1 Atrioventricular block, second degree; Z68.43 Body mass index [BMI] 50.0-59.9, adult; G47.33 Obstructive sleep apnea (adult) (pediatric); E11.9 Type 2 diabetes mellitus without complications; B96.1 Klebsiella pneumoniae [K. pneumoniae] as the cause of diseases classified elsewhere; E66.01 Morbid (severe) obesity due to excess calories; N17.9 Acute kidney failure, unspecified; E87.21 Acute metabolic acidosis; I50.33 Acute on chronic diastolic (congestive) heart failure; J96.22 Acute and chronic respiratory failure with hypercapnia; J96.21 Acute and chronic respiratory failure with hypoxia; G93.41 Metabolic encephalopathy

== ENCOUNTER 2022-06-08 00:29 | Inpatient (IN) ==
[2022-06-08 01:15] LABS: Basophils # (auto) 0.02 K/uL (0-0.2); Basophils % (auto) 0.3 %; Eosinophils # (auto) 0.07 K/uL (0-0.50); Eosinophils % (auto) 1.1 %; Hematocrit (blood only) 35.4 % (34.1-44.9); Hemoglobin 9.9 g/dl (12.0-16.0); Hypochromasia Present; Immature Granulocytes # (auto) 0.02 K/uL (0.00-0.02); Immature Granulocytes % (auto) 0.3 %; Lymphocytes # (auto) 0.83 K/uL (1.2-3.4); Lymphocytes % (auto) 12.6 %; Mean Corpuscular Hemoglobin 28.9 pg (25.0-34.0); Mean Corpuscular Volume 103.2 fL (80.0-100.0); Mean Platelet Volume 9.3 fL (9.4-12.3); Monocytes # (auto) 0.37 K/uL (0.24-0.82); Monocytes % (auto) 5.6 %; Neutrophils # (auto) 5.27 K/uL (1.4-6.5); Neutrophils % (auto) 80.1 %; Platelet Count 214 K/uL (130-400); RDW Coefficient of Variation 14.3 % (11.5-14.5); RDW Standard Deviation 53.9 fL (36.4-46.3); Red Blood Count 3.43 M/uL (3.93-5.22); White Blood Count 6.58 K/ul (4.8-10.8)
[2022-06-08 01:25] LABS: Appearance Urine Turbid (Clear); Bacteria Urine Automated 2+ (Negative); Bilirubin Urine Negative (Negative); Blood Urine Negative (Negative); Color Urine Yellow; Epithelial Cell Urine Auto >30 /lpf (0-5); Glucose Urine UA 1+ (Negative); Ketones Urine Negative (Negative); Leukocyte Esterase Urine 1+ (Negative); Nitrite Urine Positive (Negative); Protein Urine 1+ (Negative); RBC Urine Automated 0-4 /hpf (0-4); Specific Gravity Urine 1.015 (1.000-1.030); Urobilinogen Urine Negative (Negative); pH Urine 5.5 (4.5-7.5)
[2022-06-08 01:29] LABS: Alanine Aminotransferase 13 U/L (7-52); Albumin Level 3.6 gm/dl (3.4-5.0); Alkaline Phosphatase 83 U/L (34-104); Aspartate Aminotransferase 13 U/L (13-39); BUN Creatinine Ratio 32.7 (10-20); Bilirubin,Total 0.4 mg/dl (0.2-1.0); Blood Urea Nitrogen 34 mg/dl (6-23); Calcium 9.2 mg/dl (8.5-10.1); Carbon Dioxide > 45 mmol/L (21-32); Chloride 99 mmol/L (98-107); Est GFR (African American) 59.6 ml/min; Est GFR (Non-African American) 51.4 ml/min; Glucose 219 mg/dl (70-99(Fasting)); Magnesium 1.5 mg/dl (1.7-2.4); Potassium 5.3 mmol/L (3.5-5.1); Sodium 147 mmol/L (136-145); Total Protein 7.3 gm/dl (6.0-8.3); Troponin I High Sensitivity 13.3 pg/ml (0-14)
[2022-06-08 01:36] LABS: Cast Urine Automated 0 /lpf (0-5)
[2022-06-08] MEDS ORDERED: cefTRIAXone SODIUM 2,000 MG/70 ML BAG IV STA (01:39)
[2022-06-08] MEDS ORDERED: FUROSEMIDE 40 MG/4 ML VIAL IV ONE (01:43)
--- NOTE | 2022-06-08 01:51 | Emergency Department Note ---
Impression & Plan Respiratory failure, Hypomagnesemia, Acute UTI Admit to the [facility] ED Provider Note NAME: JOHAN PARTIDA AGE: 76 SEX: F ARRIVES VIA: Ambulance INFORMANT: EMS ED PROVIDER(S): Susan Velasquez DO CHIEF COMPLAINT: Respiratory distress PLAN: Disposition: Admit to the [facility] Condition: Guarded MEDICAL DECISION MAKING: This is a 76-year-old female patient from [facility] who presents emergency department in respiratory distress. She has a longstanding history of congestive heart failure and chronic health issues. EMS was called and she was found hypoxic and hypercapnic. She was placed on supplemental oxygen but remained with O2 saturation in the 80s. Upon presentation to the ER, she was switched to BiPAP which brought her saturations up into the 90s. Chest x-ray shows evidence of pulmonary edema. She did have moderate improvement in her clinical presentation and her respiratory rate came down. She was noted to be hypomagnesemic and had evidence of UTI. She was treated with IV Rocephin. Patient's carbon dioxide was greater than 45 on chemistries and she had a blood sugar greater than 200. Chest x-ray revealed pulmonary edema. Patient is suffering from acute on chronic respiratory failure associated with hypoxia and hypercapnia in the setting of congestive heart failure. In addition to the BiPAP the patient was given a dose of IV Lasix In light of the data reviewed above, the patient will require admission to the hospital. I discussed the case with the [facility]ist and they will evaluate for further management. Triage Nursing notes reviewed and agree with them. Additional history obtained from EMS Prior medical records reviewed including multiple previous admissions Vital Signs: reviewed and remarkable for hypoxia and hypercapnia Differential diagnosis: Congestive heart failure, pneumonia, STEMI, COVID-19, UTI ER treatment provided: Cardiac monitoring Twelve-lead EKG IV Lasix IV Rocephin BiPAP Diagnostics interpreted by me: ECG: Normal sinus rhythm at a rate of 80 with a poor baseline. There is a right bundle branch block. There is no obvious ST segment elevation or signs of ischemia. There is no ectopy. Cardiac Monitoring: Normal sinus rhythm at a rate of 67 Laboratory studies: See below Imaging studies: As per my interpretation Portable chest x-ray: Cardiomegaly with moderate pulmonary vascular congestion HPI: 76/F arrives for evaluation of respiratory distress. The patient resides at [facility]. Nursing staff explained that she has had a significant decline over the past couple of days. EMS found her to be tachypneic, hypoxic, and hypercapnic. PAST MEDICAL HISTORY:See Below PAST SURGICAL HISTORY:See Below FAMILY HISTORY:See Below SOCIAL HISTORY:Resides at [facility] HOME MEDICATIONS:See list ALLERGIES:None VITALS:See Below PHYSICAL EXAMINATION: HEENT: Head - normocephalic and atraumatic. Pupils are equal, round, and reactive to light. Extraocular eye muscles are intact, and sclera are anicteric. Nose - moist nasal mucosa without discharge. Mouth - moist buccal mucosa. Oropharynx is nonerythematous and there is no tonsillar exudate or edema noted. Neck: Supple; no JVD Heart: Regular rate and rhythm. There is a normal S1 and S2 with no murmurs, clicks, or gallops appreciated. Lungs: Diminished breath sounds in all lung patel with very minimal air movement Abdomen: Protuberant, soft, completely nontender, nondistended, with good bowel sounds. There are no palpable pulsatile masses or hepatosplenomegaly. There is no guarding, rigidity, or rebound noted. Extremities: Moderate peripheral vascular changes with 1+ edema Skin: warm and dry with good turgor and no rashes. ED COURSE: Times/Reassessments: The patient was evaluated in room B1. A complete history and physical was performed. Respiratory therapy was placed and the patient on BiPAP. Laboratory studies were drawn as above. An order was placed for continuous cardiac monitoring. The patient was in a normal sinus rhythm at a rate of 67. A twelve-lead EKG was obtained as described above. A Bruno catheter was placed and the urine specimen was obtained. A portable est x-ray was performed. Patient was given a dose of IV Rocephin. On reevaluation, the patient had a decreased respiratory rate and appeared much more comfortable. She was moved to room C7. She was given a dose of IV Lasix. I discussed the case with the [facility] Hospitalist and they will evaluate for further management. I have personally spent greater than 45 minutes of critical care time in the direct management of this patient. This includes bedside care, interpretation of diagnostic studies, and testing, discussion with consultants, patient, and family members, and other required patient management activities. This 45 minutes is in excess of all separately billable procedures. Susan Velasquez DO Past Med/Surg History Medical History Aortic valve stenosis CKD (chronic kidney disease) stage 3, GFR 30-59 ml/min Diabetes Diastolic CHF Dyslipidemia GERD (gastroesophageal reflux disease) HTN (hypertension) Morbid obesity with BMI of 50.0-59.9, adult Obstructive sleep apnea Paroxysmal A-fib Pneumonia Pulmonary HTN Vitamin D deficiency Surgical History History of cardiac cath Hx of total knee arthroplasty S/P AVR Family History Father Cancer pancreatic cancer Social History Smoking Status: Never smoker Second Hand Exposure: No; Do You Dip or Chew Tobacco: No; Tobacco Cessation Education Requested by Patient: No Hx Alcohol Use: No Hx Substance Use: No Preferred Language: Armenian Communication Ability: Unable Economic Development Specialist Required: No Beliefs That Will Affect Care: None marital status: Current Living Situation: Fdc Current Living Situation Comment: lives at home with son Other Information That Helps Us Care for You: No Feels Safe at Home: Yes Safety Concerns: Feels Safe At This Time Assistive Devices: BiPap and Wheelchair Allergies Allergies Allergy/AdvReac Type Severity Reaction Status Date / Time No Known Allergies Allergy Mild Verified 06/08/22 01:47 Home Meds Home Medications Medication Instructions Recorded Confirmed acetaminophen 325 mg tablet 650 mg PO Q6 PRN Fever Or Pain 06/08/22 06/08/22 (Tylenol) atorvastatin 20 mg tablet 20 mg PO DAILY 06/08/22 06/08/22 cyanocobalamin (vitamin B-12) 500 1,000 mcg PO DAILY 06/08/22 06/08/22 mcg tablet donepezil 5 mg tablet (Aricept) 5 mg PO DAILY 06/08/22 06/08/22 dulaglutide 0.75 mg/0.5 mL 0.75 mg subcut .QTUES AM 06/08/22 06/08/22 subcutaneous pen injector (Trulicity) famotidine 20 mg tablet 20 mg PO BID 06/08/22 06/08/22 ferrous sulfate 325 mg (65 mg 325 mg PO DAILY 06/08/22 06/08/22 iron) tablet furosemide 20 mg tablet 20 mg PO QAM 06/08/22 06/08/22 insulin aspart U-100 100 unit/mL 0 unit subcut TIDM PRN .per 06/08/22 06/08/22 subcutaneous solution (Novolog sliding scale U-100 Insulin aspart) insulin aspart U-100 100 unit/mL 10 unit subcut TIDM 06/08/22 06/08/22 subcutaneous solution (Novolog U-100 Insulin aspart) insulin glargine 100 unit/mL 55 unit subcut QPM 06/08/22 06/08/22 subcutaneous solution (Lantus U-100 Insulin) ketoconazole 2 % shampoo 1 applic topical 2XWK 06/08/22 06/08/22 levothyroxine 25 mcg tablet 25 mcg PO DAILY 06/08/22 06/08/22 lisinopril 5 mg tablet 5 mg PO DAILY 06/08/22 06/08/22 melatonin 5 mg tablet 5 mg PO HS 06/08/22 06/08/22 menthol 0.44 %-zinc oxide 20.6 % 1 applic topical AMPM 06/08/22 06/08/22 topical ointment (Calmoseptine) menthol 7.5 mg lozenges (Wykoff 7 mg PO .Q1HR PRN Cough 06/08/22 06/08/22 Cough Drops) multivitamin 1 tab PO DAILY 06/08/22 06/08/22 nystatin 100,000 unit/gram topical 1 applic topical Q12 PRN groin/abd 06/08/22 0 06/08/22 powder folds olanzapine 2.5 mg tablet 2.5 mg PO TID 06/08/22 06/08/22 omega-3 fatty acids 1,000 mg 1,000 mg PO BID 06/08/22 06/08/22 capsule polyethylene glycol 3350 17 gram 17 g PO DAILY PRN Constipation 06/08/22 06/08/22 oral powder packet (Miralax) sennosides 8.6 mg tablet 17.2 mg PO DAILY 06/08/22 06/08/22 warfarin 10 mg tablet 10 mg PO HS 06/08/22 06/08/22 Results & Data (ED) Vital Signs Vital Signs - 24 hr 06/08/22 00:45 06/08/22 00:45 06/08/22 00:54 Temperature 37 C Temperature Source Oral Pulse Rate 112 H Pulse Rate [Finger] 68 Pulse Rate from SpO2 Sensor Respiratory Rate 20 25 H Respiratory Effort / Characteristics Respiratory Depth Respiratory Pattern Blood Pressure 152/68 H Blood Pressure [Right Arm] 152/68 H Blood Pressure Mean 96 Blood Pressure Mean [Right Arm] 96 Pulse Oximetry 98 88 L 98 Oxygen Delivery Method BiPAP BiPAP Oxygen Flow Rate 0 Fraction of Inspired Oxygen Sepsis Recent Fever Within 48 Hours No Sepsis New/Unexplained Change in Mental Status N/A Sepsis Action Taken by Nursing No Action Required Oxygen Flow Rate - Titration 45 Pulse Oximetry Post Tiitration 98 06/08/22 00:54 06/08/22 01:10 06/08/22 00:53 Temperature Temperature Source Pulse Rate 67 79 Pulse Rate [Finger] 84 Pulse Rate from SpO2 Sensor Respiratory Rate 20 25 H 40 H Respiratory Effort / Characteristics Spontaneous Spontaneous Respiratory Depth Shallow Respiratory Pattern Tachypnea Blood Pressure Blood Pressure [Right Arm] 129/83 Blood Pressure Mean Blood Pressure Mean [Right Arm] 98 Pulse Oximetry 98 98 97 Oxygen Delivery Method BiPAP BiPAP Oxygen Flow Rate Fraction of Inspired Oxygen 45 Sepsis Recent Fever Within 48 Hours Sepsis New/Unexplained Change in Mental Status Sepsis Action Taken by Nursing Oxygen Flow Rate - Titration Pulse Oximetry Post Tiitration 06/08/22 00:36 06/08/22 00:43 06/08/22 00:43 Temperature Temperature Source Pulse Rate 142 H 75 Pulse Rate [Finger] Pulse Rate from SpO2 Sensor 93 H 71 Respiratory Rate 19 24 Respiratory Effort / Characteristics Respiratory Depth Respiratory Pattern Blood Pressure 152/68 H Blood Pressure [Right Arm] Blood Pressure Mean 96 Blood Pressure Mean [Right Arm] Pulse Oximetry 86 L 97 Oxygen Delivery Method Oxygen Flow Rate Fraction of Inspired Oxygen Sepsis Recent Fever Within 48 Hours Sepsis New/Unexplained Change in Mental Status Sepsis Action Taken by Nursing Oxygen Flow Rate - Titration Pulse Oximetry Post Tiitration 06/08/22 00:45 06/08/22 01:51 Temperature Temperature Source Pulse Rate 103 H 67 Pulse Rate [Finger] Pulse Rate from SpO2 Sensor 82 Respiratory Rate 26 H 22 Respiratory Effort / Characteristics Spontaneous Respiratory Depth Respiratory Pattern Blood Pressure Blood Pressure [Right Arm] Blood Pressure Mean Blood Pressure Mean [Right Arm] Pulse Oximetry 98 97 Oxygen Delivery Method Oxygen Flow Rate Fraction of Inspired Oxygen 45 Sepsis Recent Fever Within 48 Hours Sepsis New/Unexplained Change in Mental Status Sepsis Action Taken by Nursing Oxygen Flow Rate - Titration Pulse Oximetry Post Tiitration Laboratory Data 06/08/22 00:39 06/08/22 00:39 Lab Results 06/08/22 06/08/22 06/08/22 Range/Units 00:39 00:39 00:39 WBC 6.58 (4.8-10.8) K/ul RBC 3.43 L (3.93-5.22) M/uL Hgb 9.9 L (12.0-16.0) g/dl Hct 35.4 (34.1-44.9) % MCV 103.2 H (80.0-100.0) fL MCH 28.9 (25.0-34.0) pg MCHC 28.0 L (32.0-36.0) g/dL RDW Std Deviation 53.9 H (36.4-46.3) fL RDW Coeff of Jacqueline 14.3 (11.5-14.5) % Plt Count 214 (130-400) K/uL MPV 9.3 L (9.4-12.3) fL Immature Gran % (Auto) 0.3 % Neut % (Auto) 80.1 % Lymph % (Auto) 12.6 % Bell % (Auto) 5.6 % Eos % (Auto) 1.1 % Baso % (Auto) 0.3 % Neut # (Auto) 5.27 (1.4-6.5) K/uL Lymph # (Auto) 0.83 L (1.2-3.4) K/uL Bell # (Auto) 0.37 (0.24-0.82) K/uL Eos # (Auto) 0.07 (0-0.50) K/uL Baso # (Auto) 0.02 (0-0.2) K/uL Immature Gran # (Auto) 0.02 (0.00-0.02) K/uL Hypochromasia Present Sodium 147 H (136-145) mmol/L Potassium 5.3 H (3.5-5.1) mmol/L Chloride 99 (98-107) mmol/L Carbon Dioxide > 45 H* (21-32) mmol/L Anion Gap TNP BUN 34 H (6-23) mg/dl Creatinine 1.04 (0.6-1.2) mg/dl Est Cr Clr Drug Dosing Not Reportable Est GFR ( Amer) 59.6 ml/min Est GFR (Non-Af Amer) 51.4 ml/min BUN/Creatinine Ratio 32.7 H (10-20) Glucose 219 H (70-99(Fasting)) mg/dl Lactate 0.9 (0.4-2.0) mmol/L Calcium 9.2 (8.5-10.1) mg/dl Magnesium 1.5 L (1.7-2.4) mg/dl Total Bilirubin 0.4 (0.2-1.0) mg/dl Direct Bilirubin 0.0 (0-0.2) mg/dl AST 13 (13-39) U/L ALT 13 (7-52) U/L Alkaline Phosphatase 83 (34-104) U/L Troponin I High Sens 13.3 (0-14) pg/ml Total Protein 7.3 (6.0-8.3) gm/dl Albumin 3.6 (3.4-5.0) gm/dl Procalcitonin (0-0.5) ng/ml SARS-CoV-2 (PCR) (Negative) Influenza Type A (PCR) (Neg) Influenza Type B (PCR) (Neg) RSV (RT-PCR) (Neg) 06/08/22 06/08/22 Range/Units 00:39 01:10 WBC (4.8-10.8) K/ul RBC (3.93-5.22) M/uL Hgb (12.0-16.0) g/dl Hct (34.1-44.9) % MCV (80.0-100.0) fL MCH (25.0-34.0) pg MCHC (32.0-36.0) g/dL RDW Std Deviation (36.4-46.3) fL RDW Coeff of Jacqueline (11.5-14.5) % Plt Count (130-400) K/uL MPV (9.4-12.3) fL Immature Gran % (Auto) % Neut % (Auto) % Lymph % (Auto) % Bell % (Auto) % Eos % (Auto) % Baso % (Auto) % Neut # (Auto) (1.4-6.5) K/uL Lymph # (Auto) (1.2-3.4) K/uL Bell # (Auto) (0.24-0.82) K/uL Eos # (Auto) (0-0.50) K/uL Baso # (Auto) (0-0.2) K/uL Immature Gran # (Auto) (0.00-0.02) K/uL Hypochromasia Sodium (136-145) mmol/L Potassium (3.5-5.1) mmol/L Chloride (98-107) mmol/L Carbon Dioxide (21-32) mmol/L Anion Gap BUN (6-23) mg/dl Creatinine (0.6-1.2) mg/dl Est Cr Clr Drug Dosing Est GFR ( Amer) ml/min Est GFR (Non-Af Amer) ml/min BUN/Creatinine Ratio (10-20) Glucose (70-99(Fasting)) mg/dl Lactate (0.4-2.0) mmol/L Calcium (8.5-10.1) mg/dl Magnesium (1.7-2.4) mg/dl Total Bilirubin (0.2-1.0) mg/dl Direct Bilirubin (0-0.2) mg/dl AST (13-39) U/L ALT (7-52) U/L Alkaline Phosphatase (34-104) U/L Troponin I High Sens (0-14) pg/ml Total Protein (6.0-8.3) gm/dl Albumin (3.4-5.0) gm/dl Procalcitonin < 0.05 (0-0.5) ng/ml SARS-CoV-2 (PCR) NEGATIVE (Negative) Influenza Type A (PCR) Negative (Neg) Influenza Type B (PCR) Negative (Neg) RSV (RT-PCR) Negative (Neg) Administered Medications Albuterol (Albut/Ipratrop 3mg/0.5mg Neb 3 Ml Vial) 3 ml NEB Q4R [facility]; Protocol Stop: 07/08/22 03:36 Last Admin: 06/08/22 15:04 Dose: 3 ml Documented By: [facility] Admin: 06/08/22 10:22 Dose: 3 ml Documented By: [facility] Admin: 06/08/22 07:00 Dose: 3 ml Documented By: [facility] Admin: 06/08/22 05:34 Dose: Not Given Documented By: WERO Atorvastatin Calcium (Atorvastatin 20 Mg Tab) 20 mg PO DAILY SIMEON Stop: 07/08/22 08:59 Last Admin: 06/08/22 09:25 Dose: 20 mg Documented By: AV Cyanocobalamin (Cyanocobalamin (B-12) 500 Mcg Tablet) 1,000 mcg PO DAILY SIMEON Stop: 07/08/22 08:59 Last Admin: 06/08/22 09:26 Dose: Not Given Documented By: AV Donepezil HCl (Donepezil Hcl 5 Mg Tab) 5 mg PO DAILY SIMEON Stop: 07/08/22 08:59 Last Admin: 06/08/22 09:25 Dose: 5 mg Documented By: AV Famotidine (Famotidine 20 Mg Tab) 20 mg PO BID SIMEON Stop: 07/08/22 08:59 Last Admin: 06/08/22 09:26 Dose: Not Given Documented By: AV Furosemide (Furosemide 40 Mg/4 Ml Vial) 40 mg IV DAILY SIMEON Stop: 07/08/22 08:59 Last Admin: 06/08/22 08:50 Dose: 40 mg Documented By: SEMAJ Co-signed By: ANDRÉS Insulin Aspart (Insulin Aspart Per Unit) 0 units SC ACHS SIMEON Stop: 07/08/22 07:29 Last Admin: 06/08/22 12:23 Dose: 3 units Documented By: AV Co-signed By: HARMEET Admin: 06/08/22 09:27 Dose: 2 units Documented By: AV Co-signed By: JANY Insulin Glargine (Lantus Per Unit Charge) 20 units SQ BID SIMEON Stop: 07/08/22 08:59 Last Admin: 06/08/22 09:40 Dose: 20 units Documented By: AV Co-signed By: JANY Levothyroxine Sodium (Levothyroxine Sodium 25 Mcg Tablet) 25 mcg PO DAILYBB SIMEON Stop: 07/08/22 06:29 Last Admin: 06/08/22 06:02 Dose: Not Given Documented By: CR Lisinopril (Lisinopril 5 Mg Tab) 5 mg PO DAILY SIMEON Stop: 07/08/22 08:59 Last Admin: 06/08/22 09:24 Dose: 5 mg Documented By: AV Olanzapine (Olanzapine 2.5 Mg Tab) 2.5 mg PO TID SIMEON Stop: 07/08/22 08:59 Last Admin: 06/08/22 14:32 Dose: Not Given Documented By: Admin: 06/08/22 09:24 Dose: 2.5 mg Documented By: MARIE Sennosides (Senna 8.6 Mg Tab) 17.2 mg PO DAILY SIMEON Stop: 07/08/22 08:59 Last Admin: 06/08/22 09:27 Dose: Not Given Documented By: AV Discontinued Medications Furosemide (Furosemide 40 Mg/4 Ml Vial) 40 mg IV ONE ONE Stop: 06/08/22 01:44 Last Admin: 06/08/22 01:48 Dose: 40 mg Documented By: CELIO Ceftriaxone Sodium (Rocephin) 2,000 mg in 70 mls @ 140 mls/hr IV NOW STA Stop: 06/08/22 02:08 Last Infusion: 06/08/22 03:06 Dose: 0 mls/hr Documented By: Admin: 06/08/22 01:49 Dose: 140 mls/hr Documented By: CELIO Magnesium Sulfate/Dextrose (Magnesium Sulfate / D5w) 1 gm in 100 mls @ 50 mls/hr IV Q2H SIMEON Stop: 06/08/22 07:59 Last Infusion: 06/08/22 08:20 Dose: 0 mls/hr Documented By: Admin: 06/08/22 06:00 Dose: 50 mls/hr Documented By: Infusion: 06/08/22 06:00 Dose: 50 mls/hr Documented By: Admin: 06/08/22 04:29 Dose: 50 mls/hr Documented By: CR Imaging Data Radiologist's Impression: Chest X-Ray 06/08/22 00:42 XR chest 1V portable HISTORY: Sepsis COMPARISON: Chest 03/04/2022. FINDINGS: There are low lung volumes. There are postoperative changes. Pulmonary vascular congestion, patchy bibasilar densities, trace bilateral pleural fusions persists. The heart remains enlarged. IMPRESSION: No significant change in the cardiomegaly, pulmonary vascular congestion, trace bilateral pleural effusions, and bibasilar densities. ACT 112: Negative or not required by law. Electronically signed by: Reinaldo Adams M.D. 06/08/2022 8:39 AM Discharge Plan Visit Data Chief Complaint: Respiratory Distress ED Provider: Susan Velasquez Discharge Problem: Respiratory failure, Hypomagnesemia, Acute UTI Patient Disposition: Admitted As Inpatient Discharge Instructions Interventions: ED Discharge Assessment Last Done: 06/08/22 03:27 : Respiratory failure Qualifiers: Chronicity: acute on chronic Respiratory failure complication: hypoxia and hypercapnia Qualified Code(s): J96.21 - Acute and chronic respiratory failure with hypoxia
[2022-06-08 01:57] LABS: Influenza A virus by PCR Negative (Neg); Influenza B virus by PCR Negative (Neg); RSV by PCR Negative (Neg); SARS CoV2 RNA(COVID-19) Ceph NEGATIVE (Negative)
--- NOTE | 2022-06-08 02:06 | History & Physical Report ---
Date of Service June 08, 2022 Assessment & Plan (1) Acute on chronic respiratory failure with hypoxia and hypercapnia: Plan: Patient with acute on chronic hypoxic hypercarbic respiratory failure. She has history of HFpEF as well as obesity hypoventilation and KENAN. Reportedly hypoxic to 72% on room air prior to arrival. Now on BiPAP 12/5 45% FiO2. Clinically improved, breathing comfortably with adequate oxygenation. -Admit to PCU -Check VBG, BNP, PO4 -Wean BiPAP as tolerated. Patient should still wear qHS -Lasix 40mg IV daily -Opal (2) Diastolic CHF: Plan: Patient with HFpEF - EF of 60-65% on Echo performed 02/16/2022. Suspect acute exacerbation. Patient given Lasix 40mg IV in ER - Bruno in place with 400mL clear, yellow urine -Monitor I/Os, daily weights -Continue BiPAP, wean as tolerated -Lasix 40mg IV daily - monitor renal function and electrolytes (3) UTI (urinary tract infection): Plan: UA suggests infection. Patient is afebrile, HD stable and non-toxic in appearance. She denies urinary complaints (however, poor historian) -Follow culture. Prior urine culture from 02/2022 with crane-sensitive E. coli -Ceftriaxone 2gm IV daily (4) DMII (diabetes mellitus, type 2): Plan: Elevated blood sugar currently at 219. Last HliV0O=3.5 on 06/04/22. She is on Trulicity and insulin at home. -Continue Trulicity -Lantus 20u BID -ISS -Goal blood sugar 110 - 140 (5) Chronic kidney disease (CKD), stage III (moderate): Plan: CKD-III, GFR of 51. BUN and Cr are near baseline. -Monitor I/Os -Daily weights -Repeat chemistry to assess renal function and electrolytes -Avoid nephrotoxic agents -Renal dosing where appropriate (6) Hypomagnesemia: Plan: Mg=1.5 -Magnesium 2gm IV ordered (7) HTN (hypertension): Plan: Chronic. Blood pressure well controlled. -Continue Lisinopril -Monitor (8) Paroxysmal A-fib: Plan: Rate controlled. On Coumadin anticoagulation with subtherapeutic INR of 1.8. -Continue Coumadin -Repeat INR - goal 2-3 (9) Dementia: Plan: Chronic -Continue Aricept -Continue Olanzapine -Frequent orientation, ambulation and delirium prevention strategies History of Present Illness Chief Complaint: acute on chronic hypoxic respiratory failure Primary Care Provider: [facility] Patricia Don is a 76yo female with history of CKD-III, DM, HTN, HLP, KENAN, PAF on Coumadin anticoagulation and HFpEF presenting from [facility] with acute hypoxic respiratory failure. Patient with dementia - unable to provide many details of events prior to arrival. History obtained through chart review and discussion with ER staff. Per chart, patient has been having increased SOB and confusion over the last three days. EMS called tonight - patient found to be hypoxic at 72% on room air with elevated ETCO2 value of 96. She was trialed on BiPAP in the field but was unable to tolerate it so was placed on a NRB. Upon arrival to [facility] she was tachycardic with HR of 142, tachypneic, saturating 86% on NRB. She was placed on BiPAP and administered IV Lasix. She has been improving, breathing more comfortably now. She offers no complaints - denies chest pain, cough, fever, abdominal pain, nausea, vomiting, diarrhea. ER Course: Ceftriaxone 2gm, Lasix 40mg IV Allergies Allergy/AdvReac Type Severity Reaction Status Date / Time No Known Allergies Allergy Mild Verified 06/08/22 01:47 Home Medications Medication Instructions Recorded Confirmed Type acetaminophen 325 mg tablet 650 mg PO Q6 PRN Fever Or Pain 06/08/22 06/08/22 History (Tylenol) atorvastatin 20 mg tablet 20 mg PO DAILY 06/08/22 06/08/22 History cyanocobalamin (vitamin B-12) 500 1,000 mcg PO DAILY 06/08/22 06/08/22 History mcg tablet donepezil 5 mg tablet (Aricept) 5 mg PO DAILY 06/08/22 06/08/22 History dulaglutide 0.75 mg/0.5 mL 0.75 mg subcut .QTUES AM 06/08/22 06/08/22 History subcutaneous pen injector (Trulicity) famotidine 20 mg tablet 20 mg PO BID 06/08/22 06/08/22 History ferrous sulfate 325 mg (65 mg 325 mg PO DAILY 06/08/22 06/08/22 History iron) tablet furosemide 20 mg tablet 20 mg PO QAM 06/08/22 06/08/22 History insulin aspart U-100 100 unit/mL 0 unit subcut TIDM PRN .per 06/08/22 06/08/22 History subcutaneous solution (Novolog sliding scale U-100 Insulin aspart) insulin aspart U-100 100 unit/mL 10 unit subcut TIDM 06/08/22 06/08/22 History subcutaneous solution (Novolog U-100 Insulin aspart) insulin glargine 100 unit/mL 55 unit subcut QPM 06/08/22 06/08/22 History subcutaneous solution (Lantus U-100 Insulin) ketoconazole 2 % shampoo 1 applic topical 2XWK 06/08/22 06/08/22 History levothyroxine 25 mcg tablet 25 mcg PO DAILY 06/08/22 06/08/22 History lisinopril 5 mg tablet 5 mg PO DAILY 06/08/22 06/08/22 History melatonin 5 mg tablet 5 mg PO HS 06/08/22 06/08/22 History menthol 0.44 %-zinc oxide 20.6 % 1 applic topical AMPM 06/08/22 06/08/22 History topical ointment (Calmoseptine) menthol 7.5 mg lozenges ([place] 7 mg PO .Q1HR PRN Cough 06/08/22 06/08/22 History Cough Drops) multivitamin 1 tab PO DAILY 06/08/22 06/08/22 History nystatin 100,000 unit/gram topical 1 applic topical Q12 PRN groin/abd 06/08/22 06/08/22 History powder folds olanzapine 2.5 mg tablet 2.5 mg PO TID 06/08/22 06/08/22 History omega-3 fatty acids 1,000 mg 1,000 mg PO BID 06/08/22 06/08/22 History capsule polyethylene glycol 3350 17 gram 17 g PO DAILY PRN Constipation 06/08/22 06/08/22 History oral powder packet (Miralax) sennosides 8.6 mg tablet 17.2 mg PO DAILY 06/08/22 06/08/22 History warfarin 10 mg tablet 10 mg PO HS 06/08/22 06/08/22 History Past Med/Surg History Medical History Aortic valve stenosis CKD (chronic kidney disease) stage 3, GFR 30-59 ml/min Diabetes Diastolic CHF Dyslipidemia GERD (gastroesophageal reflux disease) HTN (hypertension) Morbid obesity with BMI of 50.0-59.9, adult Obstructive sleep apnea Paroxysmal A-fib Pneumonia Pulmonary HTN Vitamin D deficiency Surgical History History of cardiac cath Hx of total knee arthroplasty S/P AVR Family History Father Cancer pancreatic cancer Social History Smoking Status: Unknown if ever smoked Second Hand Exposure: No; Hx Alcohol Use: No Hx Substance Use: No Preferred Language: Syriac Communication Ability: Unable Staff Weapons Officer Required: No Beliefs That Will Affect Care: None marital status: Current Living Situation: [facility] Current Living Situation Comment: lives at home with son Feels Safe at Home: Yes Assistive Devices: Hospital Bed and Wheelchair Review of Systems Review of Systems: All systems reviewed & are unremarkable except as noted in HPI & below Physical Exam Physical Exam: General: patient resting comfortably, NAD, BiPAP in place, somnolent but easily arousable, oriented to self and hospital only. Able to answer questions and follow commands. Skin: warm, dry, intact, no rashes or lesions HEENT: NC/AT, PERRL, anicteric sclera, conjunctiva without injection, external ear normal to inspection and nontender, nares patent, moist mucus membranes, dentition intact, no oropharyngeal lesions, neck supple, trachea midline, no LAD, no thyromegaly, JVD difficult to assess due to body habitus Heart: +S1/S2, irregularly irregular, 3/6 SARAH Lungs: diminished breath sounds, no rales/rhonchi/wheezes Abd: +BS, soft, NT/ND, no masses/organomegaly/ascites Ext: warm, 2+ pulses in UE/LE bilaterally, no clubbing/cyanosis or edema Neuro: nonfocal, patient AA&O x 2, speech intact, no facial droop, moving all extremities on command with equal strength 5/5 Results & Data Results & Data ([facility]) Vital Signs (Past 12 Hours) Vital Signs Temp Pulse Pulse Resp BP BP Pulse Ox 06/08/22 01:51 67 22 97 06/08/22 00:45 103 H 26 H 98 06/08/22 00:43 152/68 H 06/08/22 00:43 75 24 97 06/08/22 00:36 142 H 19 86 L 06/08/22 00:53 79 40 H 97 06/08/22 01:10 84 25 H 129/83 98 06/08/22 00:54 67 20 98 06/08/22 00:54 37 C 68 25 H 152/68 H 98 06/08/22 00:45 88 L 06/08/22 00:45 112 H 20 152/68 H 98 O2 Del Method O2 Flow Rate FiO2 06/08/22 01:51 45 06/08/22 00:45 06/08/22 00:43 06/08/22 00:43 06/08/22 00:36 06/08/22 00:53 45 06/08/22 01:10 BiPAP 06/08/22 00:54 BiPAP 06/08/22 00:54 BiPAP 06/08/22 00:45 BiPAP 0 06/08/22 00:45 Laboratory Results Laboratory Results WBC 6.58 K/ul (4.8-10.8) 06/08/22 00:39 RBC 3.43 M/uL (3.93-5.22) L 06/08/22 00:39 Hgb 9.9 g/dl (12.0-16.0) L 06/08/22 00:39 Hct 35.4 % (34.1-44.9) 06/08/22 00:39 MCV 103.2 fL (80.0-100.0) H 06/08/22 00:39 MCH 28.9 pg (25.0-34.0) 06/08/22 00:39 MCHC 28.0 g/dL (32.0-36.0) L 06/08/22 00:39 RDW Std Deviation 53.9 fL (36.4-46.3) H 06/08/22 00:39 RDW Coeff of Jacqueline 14.3 % (11.5-14.5) 06/08/22 00:39 Plt Count 214 K/uL (130-400) 06/08/22 00:39 MPV 9.3 fL (9.4-12.3) L 06/08/22 00:39 Immature Gran % (Auto) 0.3 % 06/08/22 00:39 Neut % (Auto) 80.1 % 06/08/22 00:39 Lymph % (Auto) 12.6 % 06/08/22 00:39 [place] % (Auto) 5.6 % 06/08/22 00:39 Eos % (Auto) 1.1 % 06/08/22 00:39 Baso % (Auto) 0.3 % 06/08/22 00:39 Neut # (Auto) 5.27 K/uL (1.4-6.5) 06/08/22 00:39 Lymph # (Auto) 0.83 K/uL (1.2-3.4) L 06/08/22 00:39 [place] # (Auto) 0.37 K/uL (0.24-0.82) 06/08/22 00:39 Eos # (Auto) 0.07 K/uL (0-0.50) 06/08/22 00:39 Baso # (Auto) 0.02 K/uL (0-0.2) 06/08/22 00:39 Immature Gran # (Auto) 0.02 K/uL (0.00-0.02) 06/08/22 00:39 Hypochromasia Present 06/08/22 00:39 Sodium 147 mmol/L (136-145) H 06/08/22 00:39 Potassium 5.3 mmol/L (3.5-5.1) H 06/08/22 00:39 Chloride 99 mmol/L (98-107) 06/08/22 00:39 Carbon Dioxide > 45 mmol/L (21-32) H* 06/08/22 00:39 Anion Gap TNP 06/08/22 00:39 BUN 34 mg/dl (6-23) H 06/08/22 00:39 Creatinine 1.04 mg/dl (0.6-1.2) 06/08/22 00:39 Est Cr Clr Drug Dosing Not Reportable 06/08/22 00:39 Est GFR ( Amer) 59.6 ml/min 06/08/22 00:39 Est GFR (Non-Af Amer) 51.4 ml/min 06/08/22 00:39 BUN/Creatinine Ratio 32.7 (10-20) H 06/08/22 00:39 Glucose 219 mg/dl (70-99(Fasting)) H 06/08/22 00:39 Lactate 0.9 mmol/L (0.4-2.0) 06/08/22 00:39 Calcium 9.2 mg/dl (8.5-10.1) 06/08/22 00:39 Magnesium 1.5 mg/dl (1.7-2.4) L 06/08/22 00:39 Total Bilirubin 0.4 mg/dl (0.2-1.0) 06/08/22 00:39 Direct Bilirubin 0.0 mg/dl (0-0.2) 06/08/22 00:39 AST 13 U/L (13-39) 06/08/22 00:39 ALT 13 U/L (7-52) 06/08/22 00:39 Alkaline Phosphatase 83 U/L (34-104) 06/08/22 00:39 Troponin I High Sens 13.3 pg/ml (0-14) 06/08/22 00:39 Total Protein 7.3 gm/dl (6.0-8.3) 06/08/22 00:39 Albumin 3.6 gm/dl (3.4-5.0) 06/08/22 00:39 Procalcitonin < 0.05 ng/ml (0-0.5) 06/08/22 00:39 Urine Color Yellow 06/08/22 Unknown Urine Appearance Turbid (Clear) A 06/08/22 Unknown Urine pH 5.5 (4.5-7.5) 06/08/22 Unknown Ur Specific [place] 1.015 (1.000-1.030) 06/08/22 Unknown Urine Protein 1+ (Negative) H 06/08/22 Unknown Urine Glucose (UA) 1+ (Negative) H 06/08/22 Unknown Urine Ketones Negative (Negative) 06/08/22 Unknown Urine Blood Negative (Negative) 06/08/22 Unknown Urine Nitrite Positive (Negative) A 06/08/22 Unknown Urine Bilirubin Negative (Negative) 06/08/22 Unknown Urine Urobilinogen Negative (Negative) 06/08/22 Unknown Ur Leukocyte Esterase 1+ (Negative) H 06/08/22 Unknown Urine WBC (Auto) 10-30 /hpf (0-5) H 06/08/22 Unknown Urine RBC (Auto) 0-4 /hpf (0-4) 06/08/22 Unknown U Hyaline Cast (Auto) 0 /lpf (0-5) 06/08/22 Unknown U Epithel Cells (Auto) >30 /lpf (0-5) H 06/08/22 Unknown Urine Bacteria (Auto) 2+ (Negative) H 06/08/22 Unknown SARS-CoV-2 (PCR) NEGATIVE (Negative) 06/08/22 01:10 Influenza Type A (PCR) Negative (Neg) 06/08/22 01:10 Influenza Type B (PCR) Negative (Neg) 06/08/22 01:10 RSV (RT-PCR) Negative (Neg) 06/08/22 01:10 ECG Additional Comments: EKG poor study, SR at 80bpm with fusion complexes, IU=197, GQG=373, GGr=723 PG Care Time/CCT Total # of Minutes Spent Total Time Spent with Patient: Total time spent is greater than 50% in coordination of care (as documented) at patient's floor/unit and/or counseling patient: Coding Level of Care Code 54777 INT INP/OBS CARE 3/75MIN Diagnoses Acute on chronic respiratory failure with hypoxia and hypercapnia J96.21; J96.22 Diastolic CHF I50.30 UTI (urinary tract infection) N39.0 DMII (diabetes mellitus, type 2) E11.9 Chronic kidney disease (CKD), stage III (moderate) N18.30 Hypomagnesemia E83.42 HTN (hypertension) I10 Paroxysmal A-fib I48.0 Dementia F03.90
[2022-06-08] MEDS ORDERED: DEXTROSE 50% 50 ML SYRINGE IV PRN (03:37)
[2022-06-08] MEDS ORDERED: ACETAMINOPHEN 325 MG TAB PO PRN (03:37)
[2022-06-08] MEDS ORDERED: GLUCAGON FOR INJ 1 MG VIAL SQ PRN (03:37)
[2022-06-08] MEDS ORDERED: POLYETHYLENE (MIRALAX) 17 GM PACK PO PRN (03:37)
[2022-06-08] MEDS ORDERED: MELATONIN 3 MG TAB PO PRN (03:37)
[2022-06-08] MEDS ORDERED: CARBOHYDRATES FOR HYPOGLYCEMIA PO PRN (03:37)
[2022-06-08] MEDS ORDERED: GLUCOSE 10 TAB/TUBE PO PRN (03:37)
[2022-06-08] MEDS ORDERED: GLUCOSE 40% GEL 15 GM TUBE PO PRN (03:37)
[2022-06-08] MEDS: MAGNESIUM SULFATE / D5W 1 GM/100 ML BAG IV SCH ×2 (04:29→06:00)
[2022-06-08] MEDS: ALBUT/IPRATROP 3MG/0.5MG NEB 3 ML VIAL NEB SCH ×6 (05:34→23:00)
[2022-06-08 05:58] LABS: Base Excess VBG 17.6 mEq/L; HCO3 VBG 50 mmol/L; Oxygen Saturation VBG 85.3 %; PCO2 VBG 109 mmHg (38-50); PO2 VBG 50 mmHg; pH VBG 7.27 (7.36-7.41)
[2022-06-08 06:00] LABS: Hematocrit (blood only) 32.9 % (34.1-44.9); Hemoglobin 9.3 g/dl (12.0-16.0); Mean Corpuscular Hgb Conc 28.3 g/dL (32.0-36.0); Mean Corpuscular Volume 102.5 fL (80.0-100.0); Mean Platelet Volume 9.7 fL (9.4-12.3); Platelet Count 207 K/uL (130-400); RDW Coefficient of Variation 14.4 % (11.5-14.5); RDW Standard Deviation 54.1 fL (36.4-46.3); Red Blood Count 3.21 M/uL (3.93-5.22); White Blood Count 5.85 K/ul (4.8-10.8)
[2022-06-08] MEDS: LEVOTHYROXINE SODIUM 25 MCG TABLET PO SCH (06:02)
[2022-06-08 06:22] LABS: INR 4.5 (0.9-1.1); Prothrombin Time 44.5 Seconds (9.0-12.0)
[2022-06-08 06:33] LABS: Blood Urea Nitrogen 32 mg/dl (6-23); Carbon Dioxide > 45 mmol/L (21-32); Chloride 99 mmol/L (98-107); Creatinine Clr Calc Pharmacy 63.5 ml/min; Est GFR (African American) 67.3 ml/min; Est GFR (Non-African American) 58.1 ml/min; Glucose 189 mg/dl (70-99(Fasting)); Phosphorus 3.2 mg/dl (2.5-4.9); Sodium 147 mmol/L (136-145)
[2022-06-08 08:27] LABS: Base Excess VBG 18.5 mEq/L; HCO3 VBG 49 mmol/L; Oxygen Saturation VBG 88.7 %; PCO2 VBG 107 mmHg (38-50); PO2 VBG 55 mmHg; pH VBG 7.27 (7.36-7.41)
--- NOTE | 2022-06-08 08:40 | XRay Report ---
XR chest 1V portable HISTORY: Sepsis COMPARISON: Chest 03/04/2022. FINDINGS: There are low lung volumes. There are postoperative changes. Pulmonary vascular congestion, patchy bibasilar densities, trace bilateral pleural fusions persists. The heart remains enlarged. IMPRESSION: No significant change in the cardiomegaly, pulmonary vascular congestion, trace bilateral pleural eff usions, and bibasilar densities. ACT 112: Negative or not required by law. Electronically signed by: Reinaldo Adams M.D. 06/08/2022 8:39 AM
[2022-06-08] MEDS: FUROSEMIDE 40 MG/4 ML VIAL IV SCH (08:50)
[2022-06-08] MEDS: lisinopril 5 MG TAB PO SCH (09:24)
[2022-06-08] MEDS: OLANZAPINE 2.5 MG TAB PO SCH ×3 (09:24→20:01)
[2022-06-08] MEDS: ATORVASTATIN 20 MG TAB PO SCH (09:25)
[2022-06-08] MEDS: DONEPEZIL HCL 5 MG TAB PO SCH (09:25)
[2022-06-08] MEDS: CYANOCOBALAMIN (B-12) 500 MCG TABLET PO SCH (09:26)
[2022-06-08] MEDS: FAMOTIDINE 20 MG TAB PO SCH ×2 (09:26→20:01)
[2022-06-08] MEDS: INSULIN ASPART PER UNIT SC SCH ×4 (09:27→20:17)
[2022-06-08] MEDS: SENNA 8.6 MG TAB PO SCH (09:27)
[2022-06-08] MEDS: LANTUS PER UNIT CHARGE SQ SCH ×2 (09:40→20:33)
--- NOTE | 2022-06-08 14:03 | History & Physical Bridge Note ---
Date of Service June 08, 2022 History & Physical Bridge Note I have examined the patient, reviewed the History & Physical and in the interval since the performance of the History & Physical I have noted the following changes of clinical significance: Pt remains drowsy but does wake up and answer some questions, wants to be left alone. Remains on BiPAP, repeat VBG this AM showed hypercarbia. Sawyer find out from NH if using Trilogy machine ordered on discharge a few months ago but doubtful this is the case. Repeat VBG now Keep NPO May need intubation if worsens
--- NOTE | 2022-06-08 14:29 | Electrocardiogram Report ---
Test Reason : Blood Pressure : / mmHG Vent. Rate : 080 BPM Atrial Rate : 080 BPM P-R Int : 184 ms QRS Dur : 138 ms QT Int : 380 ms P-R-T Axes : 000 061 007 degrees QTc Int : 438 ms Poor data quality, interpretation may be adversely affected Probably sinus rhythm Right bundle branch block Abnormal ECG When compared with ECG of 04-MAR-2022 08:21, QRS duration has increased ST no longer elevated in Inferior leads ST no longer depressed in Lateral leads Confirmed by Wally Short ([id number] on 06/08/2022 2:29:24 PM Referred By: [facility] Confirmed By:Pierre Short
--- NOTE | 2022-06-08 14:35 | Electrocardiogram Report ---
Test Reason : Blood Pressure : / mmHG Vent. Rate : 058 BPM Atrial Rate : 058 BPM P-R Int : 194 ms QRS Dur : 138 ms QT Int : 436 ms P-R-T Axes : 095 077 023 degrees QTc Int : 428 ms Sinus bradycardia Right bundle branch block Abnormal ECG When compared with ECG of 08-JUN-2022 00:45, (unconfirmed) Fusion complexes are no longer Present T wave inversion less evident in Anterior leads Confirmed by Wally Short ([id number] on 06/08/2022 2:34:27 PM Referred By: [facility] Confirmed By:Pierre Short
[2022-06-08 16:05] LABS: HCO3 VBG 56 mmol/L; Oxygen Saturation VBG < 60.0 %; PCO2 VBG 87 mmHg (38-50); PO2 VBG 33 mmHg; pH VBG 7.42 (7.36-7.41)
[2022-06-08] MEDS ORDERED: WARFARIN SOD 10 MG TAB PO SCH (21:00)
[2022-06-09] MEDS ORDERED: cefTRIAXone SODIUM 2,000 MG in DEXTROSE 5% 50 ML IV SCH (02:00)
[2022-06-09] MEDS: ALBUT/IPRATROP 3MG/0.5MG NEB 3 ML VIAL NEB SCH ×6 (02:13→22:57)
[2022-06-09] MEDS: LEVOTHYROXINE SODIUM 25 MCG TABLET PO SCH (05:38)
[2022-06-09 07:10] LABS: Hematocrit (blood only) 31.4 % (34.1-44.9); Hemoglobin 9.1 g/dl (12.0-16.0); Mean Corpuscular Hemoglobin 28.6 pg (25.0-34.0); Mean Corpuscular Volume 98.7 fL (80.0-100.0); Mean Platelet Volume 9.7 fL (9.4-12.3); Platelet Count 204 K/uL (130-400); RDW Coefficient of Variation 14.5 % (11.5-14.5); Red Blood Count 3.18 M/uL (3.93-5.22)
[2022-06-09 07:29] LABS: BUN Creatinine Ratio 30.5 (10-20); Blood Urea Nitrogen 32 mg/dl (6-23); Calcium 9.4 mg/dl (8.5-10.1); Carbon Dioxide > 45 mmol/L (21-32); Chloride 98 mmol/L (98-107); Est GFR (African American) 58.9 ml/min; Est GFR (Non-African American) 50.8 ml/min; Glucose 83 mg/dl (70-99(Fasting)); Phosphorus 1.7 mg/dl (2.5-4.9); Potassium 4.2 mmol/L (3.5-5.1); Sodium 146 mmol/L (136-145)
[2022-06-09 07:58] LABS: INR 4.5 (0.9-1.1); Prothrombin Time 44.5 Seconds (9.0-12.0)
[2022-06-09] MEDS: OLANZAPINE 2.5 MG TAB PO SCH ×3 (08:18→20:31)
[2022-06-09] MEDS: CYANOCOBALAMIN (B-12) 500 MCG TABLET PO SCH (08:19)
[2022-06-09] MEDS: SENNA 8.6 MG TAB PO SCH (08:19)
[2022-06-09] MEDS: ATORVASTATIN 20 MG TAB PO SCH (08:19)
[2022-06-09] MEDS: lisinopril 5 MG TAB PO SCH (08:20)
[2022-06-09] MEDS: DONEPEZIL HCL 5 MG TAB PO SCH (08:20)
[2022-06-09] MEDS: FAMOTIDINE 20 MG TAB PO SCH ×2 (08:20→20:32)
[2022-06-09] MEDS: FUROSEMIDE 40 MG/4 ML VIAL IV SCH (08:21)
[2022-06-09] MEDS: INSULIN ASPART PER UNIT SC SCH ×4 (08:31→20:32)
[2022-06-09] MEDS: LANTUS PER UNIT CHARGE SQ SCH ×2 (08:32→20:32)
--- NOTE | 2022-06-09 13:32 | Hospitalist Progress Note ---
Date of Service June 09, 2022 Assessment & Plan (1) Acute on chronic respiratory failure with hypoxia and hypercapnia: Plan: Patient with acute on chronic hypoxic and hypercarbic respiratory failure. She has history of HFpEF as well as obesity hypoventilation and KENAN. Reportedly hypoxic to 72% on room air prior to arrival. VBG initially 7.27/109 and after being on BiPAP all night was still 7.27/107 the next AM. COntinued BiPAP and then improved to 7.42/87 and her mentation was much improved -continue BiPAP qhs and strongly encouraged her to continue this after discharge qhs -continue Lasix 40mg IV daily and convert to po tomorrow at increased dose of 40 mg -continue DuoNebs -continue 2LNC O2 during daytime (2) Diastolic CHF: Plan: Patient with acute on chronic HFpEF - EF of 60-65% on Echo performed 02/16/2022. Improving as above with IV lasix/diuresis -Monitor I/Os, daily weights -convert to po lasix -BPs are controlled with lasix and lisinopril -dc Bruno today as awake and alert, give Pyridium for dysuria from Bruno trauma -replace phos po today (3) UTI (urinary tract infection): Plan: UA suggests infection. Patient is afebrile, HD stable and non-toxic in appearance. She denies urinary complaints (however, poor historian) -Ceftriaxone 2gm IV daily was started Ur cx now with Citrobacter and while pansensitive, can have ampC resistance with ceftriaxone convert to po Cipro to finish out 3 day course for uncomplicated cystitis (4) DMII (diabetes mellitus, type 2): Plan: Last [id number]=0.5 on 06/04/22. She is on Trulicity and insulin at home. -Continue basal and bolus insulin (5) Chronic kidney disease (CKD), stage III (moderate): Plan: CKD-III, GFR of 51. BUN and Cr are at baseline. -Monitor I/Os -Daily weights -Repeat chemistry to assess renal function and electrolytes -Avoid nephrotoxic agents -Renal dosing where appropriate (6) HTN (hypertension): Plan: Chronic. Blood pressure well controlled. -Continue Lisinopril, lasix -Monitor (7) Paroxysmal A-fib: Plan: Rate controlled. On Coumadin anticoagulation with now supratherapeutic INR of 4.5 -hold Coumadin -Repeat INR in AM- goal 2-3 (8) Dementia: Plan: Chronic -Continue Aricept -Continue Olanzapine -Frequent orientation, ambulation and delirium prevention strategies (9) Hypothyroidism: Plan: TSH in last few months normal continue home LT4 (10) Anemia: Plan: chronic, stable at 9 check Fe studies, B12, folate in AM TSH normal Plan DVT proph-coumadin Dispo-much improved, discharge back to NH tomorrow most likely Had code status discussion with pt and her son separately--> both state that pt wishes to remain a full code Admission and Anticipated Discharge Date Admission Date: June 08, 2022 Subjective Pt much more alert and awake today. Is interactive, asking to go home tomorrow. Did wear the BiPAP all last night with a 1:1 present as she pulled out her Bruno and was trying to pull off the BiPAP. Tells me today "I hate that BiPAP" and says she doesn't wear it much at home in the NH. Denies pain but later in day was c/o urethral pain as Bruno was replaced last night after she pulled it. Bruno then removed today. Tele with NSR rates 60-70s Review of Systems Review of Systems: All systems reviewed & are unremarkable except as noted in HPI & below Physical Exam Constitutional: WD/WN, vitals as above Eyes: + anicteric sclerae Neck: trachea midline, no thyromegaly Respiratory: normal respiratory effort; no cough Auscultation: + diminished lung sounds (throughout); no crackles and no wheezes Cardiovascular: Rate/Rhythm: regular rate and regular rhythm Heart Sounds: no murmur Extremities: + edema (trace edema legs) Chest (Breasts): Chest: normal inspection of chest Gastrointestinal (Abdomen): normal bowel sounds, soft, nontender, no hepatosplenomegaly Musculoskeletal: Extremities: extremities normal to inspection; no cyanosis and no clubbing Skin: no rashes, warm and dry Neurologic: moves all extremities and awake; no focal motor deficits Psychiatric: Orientation: alert, oriented to person, oriented to place and cooperative Lymphatic: no lymphedema Results & Data Results & Data ([facility]) Vital Signs (Past 12 Hours) Vital Signs Temp Pulse Pulse Resp BP Pulse Ox Pulse Ox 06/09/22 11:33 61 18 93 06/09/22 11:07 36.9 C 74 22 132/68 90 06/09/22 07:14 61 18 93 06/09/22 07:02 36.8 C 58 L 22 131/68 94 06/09/22 03:37 95 06/09/22 02:34 37.0 C 65 24 150/74 H 95 06/09/22 02:14 65 26 H 98 06/09/22 02:13 65 23 98 O2 Del Method O2 Del Method O2 Flow Rate O2 Flow Rate FiO2 06/09/22 11:33 Nasal Cannula 2 06/09/22 11:07 Nasal Cannula 2 06/09/22 07:14 Nasal Cannula 2 06/09/22 07:02 Nasal Cannula 2 06/09/22 03:37 BiPAP 30 06/09/22 02:34 BiPAP 06/09/22 02:14 30 06/09/22 02:13 BiPAP Laboratory Results 06/09/22 06/09/22 06/09/22 Range/Units 20:07 16:18 11:19 WBC (4.8-10.8) K/ul RBC (3.93-5.22) M/uL Hgb (12.0-16.0) g/dl Hct (34.1-44.9) % MCV (80.0-100.0) fL MCH (25.0-34.0) pg MCHC (32.0-36.0) g/dL RDW Std Deviation (36.4-46.3) fL RDW Coeff of Jacqueline (11.5-14.5) % Plt Count (130-400) K/uL MPV (9.4-12.3) fL PT (9.0-12.0) Seconds INR (0.9-1.1) Sodium (136-145) mmol/L Potassium (3.5-5.1) mmol/L Chloride (98-107) mmol/L Carbon Dioxide (21-32) mmol/L Anion Gap BUN (6-23) mg/dl Creatinine (0.6-1.2) mg/dl Est Cr Clr Drug Dosing ml/min Est GFR ( Amer) ml/min Est GFR (Non-Af Amer) ml/min BUN/Creatinine Ratio (10-20) Glucose (70-99(Fasting)) mg/dl POC Glucose 190 H 152 H 170 H (70-99) mg/dl Calcium (8.5-10.1) mg/dl Phosphorus (2.5-4.9) mg/dl 06/09/22 06/09/22 06/09/22 Range/Units 07:06 06:25 06:25 WBC (4.8-10.8) K/ul RBC (3.93-5.22) M/uL Hgb (12.0-16.0) g/dl Hct (34.1-44.9) % MCV (80.0-100.0) fL MCH (25.0-34.0) pg MCHC (32.0-36.0) g/dL RDW Std Deviation (36.4-46.3) fL RDW Coeff of Jacqueline (11.5-14.5) % Plt Count (130-400) K/uL MPV (9.4-12.3) fL PT 44.5 H (9.0-12.0) Seconds INR 4.5 H (0.9-1.1) Sodium 146 H (136-145) mmol/L Potassium 4.2 (3.5-5.1) mmol/L Chloride 98 (98-107) mmol/L Carbon Dioxide > 45 H* (21-32) mmol/L Anion Gap TNP BUN 32 H (6-23) mg/dl Creatinine 1.05 (0.6-1.2) mg/dl Est Cr Clr Drug Dosing 57.0 ml/min Est GFR ( Amer) 58.9 ml/min Est GFR (Non-Af Amer) 50.8 ml/min BUN/Creatinine Ratio 30.5 H (10-20) Glucose 83 (70-99(Fasting)) mg/dl POC Glucose 92 (70-99) mg/dl Calcium 9.4 (8.5-10.1) mg/dl Phosphorus 1.7 L D (2.5-4.9) mg/dl 06/09/22 Range/Units 06:25 WBC 5.00 (4.8-10.8) K/ul RBC 3.18 L (3.93-5.22) M/uL Hgb 9.1 L (12.0-16.0) g/dl Hct 31.4 L (34.1-44.9) % MCV 98.7 (80.0-100.0) fL MCH 28.6 (25.0-34.0) pg MCHC 29.0 L (32.0-36.0) g/dL RDW Std Deviation 52.0 H (36.4-46.3) fL RDW Coeff of Jacqueline 14.5 (11.5-14.5) % Plt Count 204 (130-400) K/uL MPV 9.7 (9.4-12.3) fL PT (9.0-12.0) Seconds INR (0.9-1.1) Sodium (136-145) mmol/L Potassium (3.5-5.1) mmol/L Chloride (98-107) mmol/L Carbon Dioxide (21-32) mmol/L Anion Gap BUN (6-23) mg/dl Creatinine (0.6-1.2) mg/dl Est Cr Clr Drug Dosing ml/min Est GFR ( Amer) ml/min Est GFR (Non-Af Amer) ml/min BUN/Creatinine Ratio (10-20) Glucose (70-99(Fasting)) mg/dl POC Glucose (70-99) mg/dl Calcium (8.5-10.1) mg/dl Phosphorus (2.5-4.9) mg/dl PG Care Time/CCT Total # of Minutes Spent Total Time Spent with Patient: Total time spent is greater than 50% in coordination of care (as documented) at patient's floor/unit and/or counseling patient: Coding Level of Care Code 76540 SUB INP/OBS CARE 3/50MIN Diagnoses Acute on chronic respiratory failure with hypoxia and hypercapnia J96.21; J96.22 Diastolic CHF I50.30 UTI (urinary tract infection) N39.0 DMII (diabetes mellitus, type 2) E11.9 Chronic kidney disease (CKD), stage III (moderate) N18.30 HTN (hypertension) I10 Paroxysmal A-fib I48.0 Dementia F03.90 Hypothyroidism E03.9 Anemia D64.9
[2022-06-09] MEDS: CIPROFLOXACIN 500 MG TAB PO SCH ×2 (15:00→20:31)
[2022-06-09] MEDS: POT PHOSPHATE MONOBASIC W/ SOD TAB PO SCH ×2 (16:29→20:30)
[2022-06-09] MEDS ORDERED: PHENAZOPYRIDINE HCL 200 MG TAB PO PRN (17:54)
[2022-06-10] MEDS: ALBUT/IPRATROP 3MG/0.5MG NEB 3 ML VIAL NEB SCH ×4 (03:19→14:43)
[2022-06-10] MEDS: LEVOTHYROXINE SODIUM 25 MCG TABLET PO SCH (05:47)
[2022-06-10 07:36] LABS: Alanine Aminotransferase 9 U/L (7-52); Albumin Globulin Ratio 0.9 (0.9-2); Albumin Level 3.1 gm/dl (3.4-5.0); Alkaline Phosphatase 58 U/L (34-104); Aspartate Aminotransferase 13 U/L (13-39); BUN Creatinine Ratio 29.3 (10-20); Bilirubin,Total 0.6 mg/dl (0.2-1.0); Blood Urea Nitrogen 34 mg/dl (6-23); Calcium 8.8 mg/dl (8.5-10.1); Carbon Dioxide > 45 mmol/L (21-32); Chloride 96 mmol/L (98-107); Creatinine Clr Calc Pharmacy 50.8 ml/min; Est GFR (African American) 52.2 ml/min; Est GFR (Non-African American) 45.1 ml/min; Globulin 3.3 gm/dl (2.5-4.0); Glucose 108 mg/dl (70-99(Fasting)); Iron 56 mcg/dl (35-150); Magnesium 1.4 mg/dl (1.7-2.4); Phosphorus 4.2 mg/dl (2.5-4.9); Potassium 3.9 mmol/L (3.5-5.1); Sodium 146 mmol/L (136-145); Total Iron Binding Cap Calc 214 mcg/dl (250-450); Total Protein 6.4 gm/dl (6.0-8.3); Transferrin (FE) Percent Satur 26 % (15-50); Unsaturated Iron Binding Cap 158 mcg/dl (155-355)
[2022-06-10 07:37] LABS: INR 2.6 (0.9-1.1); Prothrombin Time 26.3 Seconds (9.0-12.0)
[2022-06-10 07:51] LABS: Ferritin 252.2 ng/ml (8-388)
[2022-06-10] MEDS: INSULIN ASPART PER UNIT SC SCH ×2 (08:04→12:13)
[2022-06-10] MEDS: CIPROFLOXACIN 500 MG TAB PO SCH (08:05)
[2022-06-10] MEDS: POT PHOSPHATE MONOBASIC W/ SOD TAB PO SCH ×2 (08:05→14:24)
[2022-06-10] MEDS: SENNA 8.6 MG TAB PO SCH (08:05)
[2022-06-10] MEDS: FAMOTIDINE 20 MG TAB PO SCH (08:05)
[2022-06-10] MEDS: CYANOCOBALAMIN (B-12) 500 MCG TABLET PO SCH (08:06)
[2022-06-10] MEDS: DONEPEZIL HCL 5 MG TAB PO SCH (08:06)
[2022-06-10] MEDS: ATORVASTATIN 20 MG TAB PO SCH (08:06)
[2022-06-10] MEDS: OLANZAPINE 2.5 MG TAB PO SCH ×2 (08:06→14:24)
[2022-06-10] MEDS: lisinopril 5 MG TAB PO SCH (08:07)
[2022-06-10] MEDS: LANTUS PER UNIT CHARGE SQ SCH (08:09)
[2022-06-10] MEDS ORDERED: POTASSIUM CHLORIDE 10 MEQ TABCR PO STA (08:32)
[2022-06-10 08:36] LABS: Vitamin B12 633 pg/ml (180-914)
[2022-06-10] MEDS ORDERED: FUROSEMIDE 40 MG TAB PO SCH (09:00)
[2022-06-10] MEDS: MAGNESIUM SULFATE / D5W 1 GM/100 ML BAG IV SCH ×3 (09:04→13:09)
[2022-06-10 09:27] LABS: Basophils # (auto) 0.03 K/uL (0-0.2); Basophils % (auto) 0.6 %; Eosinophils # (auto) 0.21 K/uL (0-0.50); Eosinophils % (auto) 4.5 %; Hematocrit (blood only) 29.7 % (37.0-47.0); Hemoglobin 8.8 g/dl (12.0-16.0); Immature Granulocytes # (auto) 0.02 K/uL (0.01-0.20); Immature Granulocytes % (auto) 0.4 %; Lymphocytes # (auto) 1.67 K/uL (1.2-3.4); Lymphocytes % (auto) 35.8 %; Mean Corpuscular Hemoglobin 28.7 pg (25.0-34.0); Mean Corpuscular Hgb Conc 29.6 g/dL (32.0-36.0); Mean Corpuscular Volume 96.7 fL (80.0-100.0); Mean Platelet Volume 9.7 fL (9.4-12.4); Monocytes # (auto) 0.38 K/uL (0.11-0.59); Monocytes % (auto) 8.1 %; Neutrophils # (auto) 2.36 K/uL (1.40-6.50); Neutrophils % (auto) 50.6 %; Platelet Count 211 K/uL (130-400); RDW Coefficient of Variation 14.7 % (11.5-14.5); RDW Standard Deviation 51.6 fL (36.4-46.3); Red Blood Count 3.07 M/uL (4.20-5.40); White Blood Count 4.67 K/ul (4.8-10.8)
--- NOTE | 2022-06-10 15:32 | Discharge Summary ---
Date of Service June 10, 2022 Admission HPI Per Admitting Provider Patricia Don is a 76yo female with history of CKD-III, DM, HTN, HLP, KENAN, PAF on Coumadin anticoagulation and HFpEF presenting from [facility] with acute hypoxic respiratory failure. Patient with dementia - unable to provide many details of events prior to arrival. History obtained through chart review and discussion with ER staff. Per chart, patient has been having increased SOB and confusion over the last three days. EMS called tonight - patient found to be hypoxic at 72% on room air with elevated ETCO2 value of 96. She was trialed on BiPAP in the field but was unable to tolerate it so was placed on a NRB. Upon arrival to [facility] she was tachycardic with HR of 142, tachypneic, saturating 86% on NRB. She was placed on BiPAP and administered IV Lasix. She has been improving, breathing more comfortably now. She offers no complaints - denies chest pain, cough, fever, abdominal pain, nausea, vomiting, diarrhea. ER Course: Ceftriaxone 2gm, Lasix 40mg IV Principal Diagnosis Acute on chronic respiratory failure with hypoxia and hypercarbia Discharge Exam Constitutional WD/WN, vitals as above Eyes + anicteric sclerae Neck trachea midline, no thyromegaly Respiratory normal respiratory effort; no cough Auscultation: + diminished lung sounds (throughout); no crackles and no wheezes Cardiovascular Rate/Rhythm: regular rate and regular rhythm Heart Sounds: no murmur Extremities: + edema (trace edema legs) Chest (Breasts) Chest: normal inspection of chest Gastrointestinal (Abdomen) normal bowel sounds, soft, nontender, no hepatosplenomegaly Musculoskeletal Extremities: extremities normal to inspection; no cyanosis and no clubbing Skin no rashes, warm and dry Neurologic moves all extremities and awake; no focal motor deficits Psychiatric Orientation: alert, oriented to person, oriented to place and cooperative Lymphatic no lymphedema Discharge Data Allergies Allergy/AdvReac Type Severity Reaction Status Date / Time No Known Allergies Allergy Mild Verified 06/08/22 01:47 Consultations 06/08/22 01:43 ED Decision to Admit Stat Hospital Course (1) Acute on chronic respiratory failure with hypoxia and hypercapnia: Patient with acute on chronic hypoxic and hypercarbic respiratory failure. She has history of HFpEF as well as obesity hypoventilation and KENAN. Reportedly hypoxic to 72% on room air prior to arrival. VBG initially 7.27/109 and after being on BiPAP all night was still 7.27/107 the next AM. COntinued BiPAP and then improved to 7.42/87 and her mentation was much improved -continue BiPAP qhs and strongly encouraged her to continue this after discharge qhs-she says she will use it -received Lasix 40mg IV daily and converted to po lasix at increased dose of 40mg once daily -continue DuoNebs -continue 2LNC O2 during daytime (2) Diastolic CHF: Patient with acute on chronic HFpEF - EF of 60-65% on Echo performed 02/16/2022. Improving as above with IV lasix/diuresis -Monitor I/Os, daily weights -converted to po lasix -BPs are controlled with lasix and lisinopril (3) UTI (urinary tract infection): UA suggests infection. Patient is afebrile, HD stable and non-toxic in appearance. She denies urinary complaints (however, poor historian) -Ceftriaxone 2gm IV daily was started Ur cx now with Citrobacter and while pansensitive, can have ampC resistance with ceftriaxone converted to po Cipro to finish out 3 day course for uncomplicated cystitis- needs 3 more doses of CIpro after discharge (4) DMII (diabetes mellitus, type 2): Last FqgD1O=5.5 on 06/04/22. She is on Trulicity and insulin at home. -Continue basal and bolus insulin (5) Chronic kidney disease (CKD), stage III (moderate): CKD-III, GFR of 51. BUN and Cr are at baseline. -Monitor I/Os -Daily weights -Repeat chemistry to assess renal function and electrolytes -Avoid nephrotoxic agents -Renal dosing where appropriate (6) HTN (hypertension): Chronic. Blood pressure well controlled. -Continue Lisinopril, lasix -Monitor (7) Paroxysmal A-fib: Rate controlled. On Coumadin anticoagulation with now supratherapeutic INR of 4.5 -held Coumadin and now restart at 8mg daily (lower dose) -Repeat INR in 2 days (8) Dementia: Chronic -Continue Aricept -Continue Olanzapine -Frequent orientation, ambulation and delirium prevention strategies (9) Hypothyroidism: TSH in last few months normal continue home LT4 (10) Anemia: chronic, stable at 9 Fe studies normal, B12, folate normal TSH normal Plan DVT proph-coumadin Dispo-much improved, discharge back to [place] today Had code status discussion with pt and her son separately--> both state that pt wishes to remain a full code Discussed care with son on phone on day of discharge High risk for readmission as discussed wih son if continues tih BiPAP noncompliance Total Time Total Time Spent Total Time Spent (In Minutes): 35 min Discharge Plan Discharge Items Patient Disposition: [facility] Reason For Visit: ACUTE HYPOXIC RESPIRATORY FAILURE Discharge Diagnosis: Acute on chronic respiratory failure with hypoxia and hypercarbia UTI Activity: As commented below Lifting: Gradually increase as tolerated Exercise/Sports: Gradually increase as tolerated Exercise Comment: with PT/OT Non-emergency contact: Primary Care Provider Call non-emergency contact if: you have any medication questions and your symptoms worsen Follow-up/Referrals: [facility] [Primary Care Provider] - Diet: Carb Consistent or DM2 and Low Sodium (2gm) Addtl Attending Provider Instructions: It is VERY IMPORTANT that you wear your BiPAP mask every night when you sleep to prevent you from having respiratory failure again. Please finish out one more day of the Cipro for your UTI. Your Coumadin dose was lowered to 8mg daily because your INR was too high on the 10 mg dose. Please check your INR in 2 days. Pending Studies at Discharge: Yes (Final blood culture results-no growth to date) Stand-Alone Forms: My [facility] Skilled Items Patient informed of condition?: Yes DNR: No Discharge Level of Care: Skilled Communicable Disease: No Discharge Prognosis: Improving Lines: None Urinary Catheter: No Medications and DC Order Prescriptions: New furosemide 40 mg Tablet 40 mg PO QAM Qty: 30 0RF ciprofloxacin HCl 500 mg Tablet 500 mg PO Q12H Qty: 3 0RF warfarin 4 mg tablet 8 mg PO QPM Qty: 60 0RF Continued multivitamin Tablet 1 tab PO DAILY sennosides 8.6 mg Tablet 17.2 mg PO DAILY acetaminophen [Tylenol] 325 mg Tablet 650 mg PO Q6 PRN (Reason: Fever Or Pain) atorvastatin 20 mg tablet 20 mg PO DAILY donepezil [Aricept] 5 mg Tablet 5 mg PO DAILY ketoconazole 2 % shampoo 1 applic TOPICAL 2XWK Rx Instructions: Q TUES & FRI in pm. insulin glargine [Lantus U-100 Insulin] 100 unit/mL solution 55 unit SUBCUT QPM omega-3 fatty acids [Fish Oil Concentrate] 1,000 mg Capsule 1,000 mg PO BID polyethylene glycol 3350 [Miralax] 17 gram Powder In Packet 17 g PO DAILY PRN (Reason: Constipation) olanzapine 2.5 mg Tablet 2.5 mg PO TID levothyroxine 25 mcg tablet 25 mcg PO DAILY famotidine 20 mg tablet 20 mg PO BID cyanocobalamin (vitamin B-12) 500 mcg Tablet 1,000 mcg PO DAILY insulin aspart U-100 [Novolog U-100 Insulin aspart] 100 unit/mL solution 0 unit subcut TIDM PRN (Reason: .per sliding scale) Rx Instructions: if 350-400=8units, 401-450= 12 units, 451-500=16units, >500 give 18 units & recheck BSG in 2 hrs. insulin aspart U-100 [Novolog U-100 Insulin aspart] 100 unit/mL solution 10 unit subcut TIDM Rx Instructions: Hold if eaten <50% ferrous sulfate 325 mg (65 mg iron) Tablet 325 mg PO DAILY lisinopril 5 mg tablet 5 mg PO DAILY nystatin 100,000 unit/gram powder 1 applic TOPICAL Q12 PRN (Reason: groin/abd folds) melatonin 5 mg Tablet 5 mg PO HS menthol-zinc oxide [Calmoseptine] 0.44-20.6 % Ointment 1 applic TOPICAL AMPM [place] Cough Drops 7.5 mg Lozenge 7 mg PO .Q1HR PRN (Reason: Cough) Trulicity 0.75 mg/0.5 mL pen injector 0.75 mg SUBCUT .QTUES AM Discontinued warfarin [Coumadin] 10 mg Tablet 10 mg PO HS furosemide 20 mg Tablet 20 mg PO QAM Discharge Orders: Discharge Order (Routine); Ordered 06/10/22 Ordered By: Liliana Melgar Admission Data Admit Date/Time: 06/08/22 02:06 Attending Provider: Liliana Melgar Admit Provider: Ilda Alejandro Primary Care Provider: [facility] Other Providers: Ilda Alejandro Coding Level of Care Code HOSP INP/OBS DISCH >30 MIN Diagnoses Acute on chronic respiratory failure with hypoxia and hypercapnia J96.21; J96.22 Diastolic CHF I50.30 UTI (urinary tract infection) N39.0 DMII (diabetes mellitus, type 2) E11.9 Chronic kidney disease (CKD), stage III (moderate) N18.30 HTN (hypertension) I10 Paroxysmal A-fib I48.0 Dementia F03.90 Hypothyroidism E03.9 Anemia D64.9
== END 2022-06-10 16:22 | DRG 291 ==
LOC: ED 00:29 → 2S 02:06 → SUATTDRO 02:06 → 2S 03:27

== ENCOUNTER 2023-07-09 15:34 | Inpatient (IN) ==
[2023-07-09 15:59] LABS: Base Excess VBG 9.4 mEq/L; HCO3 VBG 39 mmol/L; Oxygen Saturation VBG 82.8 %; PCO2 VBG 75 mmHg (38-50); PO2 VBG 54 mmHg; pH VBG 7.32 (7.36-7.41)
--- NOTE | 2023-07-09 16:02 | Emergency Department Note ---
Impression & Plan Respiratory failure, COPD (chronic obstructive pulmonary disease), Elevated troponin I level, Acute UTI (urinary tract infection) ED Provider Note NAME: JOHAN PARTIDA AGE: 77 SEX: F : 1945 ARRIVES VIA: Ambulance INFORMANT: Patient, ED PROVIDER(S): Ramsey Trejo DO CHIEF COMPLAINT: Shortness of breath HPI: The patient is a 77-year-old female who resides at a halfway who presented to the emergency department for an evaluation of shortness of breath. The patient was placed on her own BiPAP all morning but has been failing. Her mental status has been diminishing. Her oxygen saturation was noted to be low. She was sent to the emergency department for further evaluation. She was placed on BiPAP prior to arrival ROS: See above HPI for pertinent positives & negatives. A total of 10 systems reviewed and were otherwise negative. PAST MEDICAL HISTORY: See Below PAST SURGICAL HISTORY: See Below FAMILY HISTORY: See Below SOCIAL HISTORY: See Below HOME MEDICATIONS: See Below ALLERGIES: See Below VITALS: See Below PHYSICAL EXAMINATION: GENERAL: The patient is awake to verbal commands. EYES: The conjunctivae are clear. The pupils are round and reactive. EARS, NOSE, MOUTH AND THROAT: The nose is without any evidence of any deformity. NECK: The neck is nontender and supple. RESPIRATORY: Diminished breath sounds are noted throughout. CARDIOVASCULAR: Regular rate and rhythm noted there no murmurs rubs or gallops normal S1 normal S2. GASTROINTESTINAL: The abdomen is soft. Abdomen is nontender. MUSCULOSKELETAL/EXTREMITIES: There is no evidence of gross deformity full range of motion is noted in the hips and shoulders. SKIN: Pedal edema was noted bilaterally. NEUROLOGIC: Patient is awake and oriented to person place and situation. Strength was symmetric but diminished. MEDICAL DECISION MAKING: The patient is a 77-year-old female who presented to the emergency department for an evaluation of difficulty breathing. The patient reportedly had increasing work of breathing as well as hypoxia noted at the personal-senior care. She has a history of obstructive sleep apnea. She was placed on her BiPAP at the halfway but her oxygen saturation did not significantly improved. She was sent to the emergency department for further evaluation. I discussed the patient's laboratory and radiographic studies with the on-call [facility] hospitalist. They have agreed to evaluate the patient in the emergency department for further management and disposition. The patient was treated with a DuoNeb as well as IV antibiotics. Triage Nursing notes reviewed. Prior medical records reviewed Vital Signs: reviewed and remarkable for elevated blood pressure. Differential diagnosis: Reactive airway disease, pneumonia, pneumothorax, COPD, CHF, infections, cardiac ischemia, pulmonary embolism, musculoskeletal, gastrointestinal, as well as other pathologies. ER treatment provided: See below Diagnostics interpreted by me: ECG: EKG was obtained in the emergency department. My interpretation is normal sinus rhythm at 84 bpm. There is no ectopy. Right bundle-branch block pattern was noted. This was compared to a tracing from June 08, 2023. No changes were noted. Cardiac Monitoring: An order was placed for continuous cardiac monitoring. The monitor shows a rate of 68 bpm with sinus rhythm. Laboratory studies: As stated above and show below. Imaging studies: See below. Radiographic imaging was reviewed by myself Consultation(s): I discussed this case with Dr Huerta ED COURSE: Procedures: none Critical Care: I have personally spent greater than 35 minutes of critical care time in the direct management of this patient. This includes bedside care, interpretation of diagnostic studies, and testing, discussion with consultants, patient, and family members, and other required patient management activities. This 35 minutes is in excess of all separately billable procedures. Past Med/Surg History Medical History Hypothyroidism Acute UTI Pneumonia Acute on chronic respiratory failure with hypoxia and hypercapnia Paroxysmal A-fib GERD (gastroesophageal reflux disease) Morbid obesity with BMI of 50.0-59.9, adult HTN (hypertension) Obstructive sleep apnea Diastolic CHF Pulmonary HTN Aortic valve stenosis Vitamin D deficiency CKD (chronic kidney disease) stage 3, GFR 30-59 ml/min Dyslipidemia Diabetes Surgical History History of cardiac cath Hx of total knee arthroplasty S/P AVR Family History Father Cancer pancreatic cancer Social History Smoking Status: Never smoker Second Hand Exposure: No; Do You Dip or Chew Tobacco: No; Hx Alcohol Use: No Hx Substance Use: No Preferred Language: Kenyan 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 Required: No Beliefs That Will Affect Care: None marital status: Current Living Situation: [facility] Current Living Situation Comment: lives at home with son Feels Safe at Home: Yes Assistive Devices: BiPap and Wheelchair Allergies Allergies Allergy/AdvReac Type Severity Reaction Status Date / Time No Known Allergies Allergy Mild Verified 07/09/23 16:16 Home Meds Home Medications Medication Instructions Recorded Confirmed acetaminophen 325 mg tablet 650 mg PO Q6 PRN Fever Or Pain 06/08/22 07/09/23 (Tylenol) atorvastatin 20 mg tablet 20 mg PO HS 06/08/22 07/09/23 cyanocobalamin (vitamin B-12) 500 1,000 mcg PO DAILY 06/08/22 07/09/23 mcg tablet donepezil 5 mg tablet (Aricept) 5 mg PO DAILY 06/08/22 07/09/23 famotidine 20 mg tablet 20 mg PO BIDM 06/08/22 07/09/23 ferrous sulfate 325 mg (65 mg 325 mg PO DAILY 06/08/22 07/09/23 iron) tablet insulin aspart U-100 100 unit/mL 0 unit subcut TIDM PRN .per 06/08/22 07/09/23 subcutaneous solution (Novolog sliding scale U-100 Insulin aspart) insulin aspart U-100 100 unit/mL 15 unit subcut TIDM 06/08/22 07/09/23 subcutaneous solution (Novolog U-100 Insulin aspart) insulin glargine 100 unit/mL 60 unit subcut HS 06/08/22 07/09/23 subcutaneous solution (Lantus U-100 Insulin) ketoconazole 2 % shampoo 1 applic topical 2XWK 06/08/22 07/09/23 melatonin 5 mg tablet 5 mg PO HS 06/08/22 07/09/23 menthol 0.44 %-zinc oxide 20.6 % 1 applic topical AMPM 06/08/22 07/09/23 topical ointment (Calmoseptine) menthol 7.5 mg lozenges ([place] 7 mg PO DIRECTED PRN Cough 06/08/22 07/09/23 Cough Drops) olanzapine 2.5 mg tablet 2.5 mg PO TIDM 06/08/22 07/09/23 omega-3 fatty acids 1,000 mg 1,000 mg PO BIDM 06/08/22 07/09/23 capsule sennosides 8.6 mg tablet 17.2 mg PO DAILY 06/08/22 07/09/23 clotrimazole-betamethasone 1 1 applic topical BID 07/09/23 07/09/23 %-0.05 % topical cream diclofenac sodium 1 % topical gel 4 g topical QID 07/09/23 07/09/23 dulaglutide 1.5 mg/0.5 mL 1.5 mg subcut WK 07/09/23 07/09/23 subcutaneous pen injector (Trulicity) furosemide 40 mg tablet 40 mg PO BIDM 07/09/23 07/09/23 levothyroxine 50 mcg tablet 50 mcg PO DAILYBB 07/09/23 07/09/23 methyl salicylate 15 %-menthol 10 1 applic topical QID 07/09/23 07/09/23 % topical cream [id number]-[id number]-FA-Ca carb-vit K 1 tab PO DAILY 07/09/23 07/09/23 18 mg iron-400 mcg-500 mg tablet warfarin 2 mg tablet 2 mg PO HS 07/09/23 07/09/23 warfarin 5 mg tablet 5 mg PO HS 07/09/23 07/09/23 Results & Data (ED) Vital Signs Vital Signs - 24 hr 07/09/23 15:38 07/09/23 15:39 07/09/23 15:42 Temperature Temperature Source Pulse Rate 84 Pulse Rate [Finger] Pulse Rate from SpO2 Sensor 83 Respiratory Rate 24 Respiratory Effort / Characteristics Respiratory Depth Shallow Respiratory Pattern Tachypnea Blood Pressure Blood Pressure Mean Pulse Oximetry 95 Oxygen Delivery Method BiPAP BiPAP BiPAP Fraction of Inspired Oxygen Sepsis Recent Fever Within 48 Hours Sepsis New/Unexplained Change in Mental Status Sepsis Action Taken by Nursing 07/09/23 15:42 07/09/23 15:45 07/09/23 15:47 Temperature 36.5 C Temperature Source Oral Pulse Rate 82 82 Pulse Rate [Finger] Pulse Rate from SpO2 Sensor 82 Respiratory Rate 18 26 H Respiratory Effort / Characteristics Non-Labored Spontaneous Respiratory Depth Normal Respiratory Pattern Regular Blood Pressure 124/88 124/84 Blood Pressure Mean 100 88 Pulse Oximetry 97 97 Oxygen Delivery Method Room Air BiPAP Fraction of Inspired Oxygen Sepsis Recent Fever Within 48 Hours No Sepsis New/Unexplained Change in Mental Status Yes Sepsis Action Taken by Nursing No Action Required 07/09/23 15:47 07/09/23 15:52 07/09/23 15:56 Temperature Temperature Source Pulse Rate 80 86 83 Pulse Rate [Finger] Pulse Rate from SpO2 Sensor 80 Respiratory Rate 18 24 Respiratory Effort / Characteristics Spontaneous Respiratory Depth Respiratory Pattern Blood Pressure Blood Pressure Mean Pulse Oximetry 97 97 Oxygen Delivery Method BiPAP Fraction of Inspired Oxygen 35 Sepsis Recent Fever Within 48 Hours Sepsis New/Unexplained Change in Mental Status Sepsis Action Taken by Nursing 07/09/23 16:00 07/09/23 16:00 07/09/23 16:15 Temperature Temperature Source Pulse Rate 77 79 Pulse Rate [Finger] Pulse Rate from SpO2 Sensor 77 79 Respiratory Rate 18 17 Respiratory Effort / Characteristics Respiratory Depth Respiratory Pattern Blood Pressure 123/82 133/70 Blood Pressure Mean 86 91 Pulse Oximetry 96 95 Oxygen Delivery Method BiPAP Fraction of Inspired Oxygen Sepsis Recent Fever Within 48 Hours Sepsis New/Unexplained Change in Mental Status Sepsis Action Taken by Nursing 07/09/23 16:30 07/09/23 16:45 07/09/23 17:39 Temperature Temperature Source Pulse Rate 75 75 68 Pulse Rate [Finger] Pulse Rate from SpO2 Sensor 75 75 Respiratory Rate 21 20 16 Respiratory Effort / Characteristics Non-Labored Spontaneous Respiratory Depth Respiratory Pattern Regular Blood Pressure 106/61 144/89 H Blood Pressure Mean 76 107 Pulse Oximetry 94 94 95 Oxygen Delivery Method Fraction of Inspired Oxygen 35 Sepsis Recent Fever Within 48 Hours Sepsis New/Unexplained Change in Mental Status Sepsis Action Taken by Nursing 07/09/23 17:41 Temperature Temperature Source Pulse Rate Pulse Rate [Finger] 68 Pulse Rate from SpO2 Sensor Respiratory Rate 16 Respiratory Effort / Characteristics Non-Labored Spontaneous Respiratory Depth Respiratory Pattern Blood Pressure Blood Pressure Mean Pulse Oximetry 95 Oxygen Delivery Method BiPAP Fraction of Inspired Oxygen 35 Sepsis Recent Fever Within 48 Hours Sepsis New/Unexplained Change in Mental Status Sepsis Action Taken by [facility] Medications Current Medication List: was personally reviewed by me Laboratory Data Attestation: I reviewed the patient's lab results. 07/09/23 15:45 07/09/23 15:45 Lab Results 07/09/23 07/09/23 07/09/23 Range/Units 15:40 15:45 16:41 WBC 6.97 (4.8-10.8) K/ul RBC 3.96 L (4.20-5.40) M/uL Hgb 11.7 L (12.0-16.0) g/dl Hct 38.3 (37.0-47.0) % MCV 96.7 (80.0-100.0) fL MCH 29.5 (25.0-34.0) pg MCHC 30.5 L (32.0-36.0) g/dL RDW Std Deviation 57.5 H (36.4-46.3) fL RDW Coeff of Jacqueline 16.2 H (11.5-14.5) % Plt Count 274 (130-400) K/uL MPV 10.6 (9.4-12.4) fL Immature Gran % (Auto) 0.7 % Neut % (Auto) 71.2 % Lymph % (Auto) 18.2 % [place] % (Auto) 7.9 % Eos % (Auto) 1.4 % Baso % (Auto) 0.6 % Neut # (Auto) 4.96 (1.40-6.50) K/uL Lymph # (Auto) 1.27 (1.20-3.40) K/uL [place] # (Auto) 0.55 (0.11-0.59) K/uL Eos # (Auto) 0.10 (0.00-0.50) K/uL Baso # (Auto) 0.04 (0.00-0.20) K/uL Immature Gran # (Auto) 0.05 (0.01-0.20) K/uL Absolute Nucleated RBC 0.06 (0.00-0.12) K/uL Nucleated RBC % (auto) 0.9 % Platelet Estimate Normal (Normal) Polychromasia 1+ Stomatocytes 2+ PT 24.5 H (9.0-12.0) Seconds INR 2.4 H (0.9-1.1) APTT 25 (21-31) Seconds PTT Ratio 0.9 VBG pH 7.32 L (7.36-7.41) VBG pCO2 75 H (38-50) mmHg VBG pO2 54 mmHg VBG HCO3 39 mmol/L VBG O2 Saturation 82.8 % VBG Base Excess 9.4 mEq/L Sodium 143 (136-145) mmol/L Potassium 4.1 (3.5-5.1) mmol/L Chloride 100 (98-107) mmol/L Carbon Dioxide 36 H (21-32) mmol/L Anion Gap 7 (3-11) BUN 49 H (6-23) mg/dl Creatinine 1.70 H (0.6-1.2) mg/dl Est Cr Clr Drug Dosing 37.8 ml/min Est GFR ( Amer) 32.7 ml/min Est GFR (Non-Af Amer) 28.2 ml/min BUN/Creatinine Ratio 28.8 H (10-20) Glucose 249 H (70-99(Fasting)) mg/dl Lactate 1.8 (0.4-2.0) mmol/L Calcium 9.1 (8.6-10.3) mg/dl Magnesium 1.8 (1.7-2.4) mg/dl Total Bilirubin 0.5 (0.2-1.0) mg/dl Direct Bilirubin TNP 0.0 AST 41 H (13-39) U/L ALT 46 (7-52) U/L Alkaline Phosphatase 91 (34-104) U/L Troponin I High Sens 27.8 H (0-14) pg/ml B-Natriuretic Peptide 189 H (0-100) pg/ml Total Protein 7.5 (6.0-8.3) gm/dl Albumin 3.8 (3.4-5.0) gm/dl Procalcitonin 0.10 (0-0.5) ng/ml Urine Color Urine Appearance (Clear) Urine pH (4.5-7.5) Ur Specific [place] (1.000-1.030) Urine Protein (Negative) Urine Glucose (UA) (Negative) Urine Ketones (Negative) Urine Blood (Negative) Urine Nitrite (Negative) Urine Bilirubin (Negative) Urine Urobilinogen (Negative) Ur Leukocyte Esterase (Negative) Urine WBC (Auto) (0-5) /hpf Urine RBC (Auto) (0-4) /hpf U Hyaline Cast (Auto) (0-5) /lpf U Epithel Cells (Auto) (0-5) /lpf Urine Bacteria (Auto) (Negative) Adenovirus (PCR) Not Detected (NotDetected) B. pertussis DNA (PCR) Not Detected (NotDetected) B.parapertussis DNA PCR Not Detected (NotDetected) C. pneumoniae DNA (PCR) Not Detected (NotDetected) Coronavirus OC43 (PCR) Not Detected (NotDetected) Coronavirus HKU1 (PCR) Not Detected (NotDetected) Coronavirus 229E (PCR) Not Detected (NotDetected) SARS-CoV-2 (PCR) Not Detected (NotDetected) Coronavirus NL63 (PCR) Not Detected (NotDetected) Human Metapneumovir PCR Not Detected (NotDetected) Influenza Type A (PCR) Not Detected (NotDetected) Influenza Type B (PCR) Not Detected (NotDetected) M. pneumoniae (PCR) Not Detected (NotDetected) Parainfluenza 1 (PCR) Not Detected (NotDetected) Parainfluenza 2 (PCR) Not Detected (NotDetected) Parainfluenza 3 (PCR) Not Detected (NotDetected) Parainfluenza 4 (PCR) Not Detected (NotDetected) RSV (PCR) Not Detected (NotDetected) Entero/Rhino (PCR) Not Detected (NotDetected) 07/09/23 Range/Units 16:52 WBC (4.8-10.8) K/ul RBC (4.20-5.40) M/uL Hgb (12.0-16.0) g/dl Hct (37.0-47.0) % MCV (80.0-100.0) fL MCH (25.0-34.0) pg MCHC (32.0-36.0) g/dL RDW Std Deviation (36.4-46.3) fL RDW Coeff of Jacqueline (11.5-14.5) % Plt Count (130-400) K/uL MPV (9.4-12.4) fL Immature Gran % (Auto) % Neut % (Auto) % Lymph % (Auto) % [place] % (Auto) % Eos % (Auto) % Baso % (Auto) % Neut # (Auto) (1.40-6.50) K/uL Lymph # (Auto) (1.20-3.40) K/uL [place] # (Auto) (0.11-0.59) K/uL Eos # (Auto) (0.00-0.50) K/uL Baso # (Auto) (0.00-0.20) K/uL Immature Gran # (Auto) (0.01-0.20) K/uL Absolute Nucleated RBC (0.00-0.12) K/uL Nucleated RBC % (auto) % Platelet Estimate (Normal) Polychromasia Stomatocytes PT (9.0-12.0) Seconds INR (0.9-1.1) APTT (21-31) Seconds PTT Ratio VBG pH (7.36-7.41) VBG pCO2 (38-50) mmHg VBG pO2 mmHg VBG HCO3 mmol/L VBG O2 Saturation % VBG Base Excess mEq/L Sodium (136-145) mmol/L Potassium (3.5-5.1) mmol/L Chloride (98-107) mmol/L Carbon Dioxide (21-32) mmol/L Anion Gap (3-11) BUN (6-23) mg/dl Creatinine (0.6-1.2) mg/dl Est Cr Clr Drug Dosing ml/min Est GFR ( Amer) ml/min Est GFR (Non-Af Amer) ml/min BUN/Creatinine Ratio (10-20) Glucose (70-99(Fasting)) mg/dl Lactate (0.4-2.0) mmol/L Calcium (8.6-10.3) mg/dl Magnesium (1.7-2.4) mg/dl Total Bilirubin (0.2-1.0) mg/dl Direct Bilirubin AST (13-39) U/L ALT (7-52) U/L Alkaline Phosphatase (34-104) U/L Troponin I High Sens (0-14) pg/ml B-Natriuretic Peptide (0-100) pg/ml Total Protein (6.0-8.3) gm/dl Albumin (3.4-5.0) gm/dl Procalcitonin (0-0.5) ng/ml Urine Color Yellow Urine Appearance Clear (Clear) Urine pH 5.0 (4.5-7.5) Ur Specific [place] 1.013 (1.000-1.030) Urine Protein Negative (Negative) Urine Glucose (UA) Negative (Negative) Urine Ketones Negative (Negative) Urine Blood Negative (Negative) Urine Nitrite Positive A (Negative) Urine Bilirubin Negative (Negative) Urine Urobilinogen Negative (Negative) Ur Leukocyte Esterase 2+ H (Negative) Urine WBC (Auto) 10-30 H (0-5) /hpf Urine RBC (Auto) 0-4 (0-4) /hpf U Hyaline Cast (Auto) 1-5 (0-5) /lpf U Epithel Cells (Auto) 0-5 (0-5) /lpf Urine Bacteria (Auto) Negative (Negative) Adenovirus (PCR) (NotDetected) B. pertussis DNA (PCR) (NotDetected) B.parapertussis DNA PCR (NotDetected) C. pneumoniae DNA (PCR) (NotDetected) Coronavirus OC43 (PCR) (NotDetected) Coronavirus HKU1 (PCR) (NotDetected) Coronavirus 229E (PCR) (NotDetected) SARS-CoV-2 (PCR) (NotDetected) Coronavirus NL63 (PCR) (NotDetected) Human Metapneumovir PCR (NotDetected) Influenza Type A (PCR) (NotDetected) Influenza Type B (PCR) (NotDetected) M. pneumoniae (PCR) (NotDetected) Parainfluenza 1 (PCR) (NotDetected) Parainfluenza 2 (PCR) (NotDetected) Parainfluenza 3 (PCR) (NotDetected) Parainfluenza 4 (PCR) (NotDetected) RSV (PCR) (NotDetected) Entero/Rhino (PCR) (NotDetected) Administered Medications Ceftriaxone Sodium (Rocephin) 2,000 mg in 50 mls @ 100 mls/hr IV NOW STA Stop: 07/09/23 17:40 Last Admin: 07/09/23 17:31 Dose: 100 mls/hr Documented By: BS Discontinued Medications Albuterol (Albut/Ipratrop 3mg/0.5mg Neb 3 Ml Vial) 3 ml NEB NOW STA; Protocol Stop: 07/09/23 17:12 Last Admin: 07/09/23 17:38 Dose: 3 ml Documented By: EAIan Imaging Data Attestation: I personally reviewed and interpreted this imaging study as follows: My Impression: 1 view chest x-ray was obtained in the emergency department. My interpretation is cardiomegaly with mild volume overload, final report is pending. Discharge Plan Visit Data Chief Complaint: Respiratory Distress ED Provider: Ramsey Trejo Discharge Problem: Respiratory failure, COPD (chronic obstructive pulmonary disease), Elevated troponin I level, Acute UTI (urinary tract infection) Patient Disposition: Being Evaluated by Hospitalist Forms Stand Alone Forms: My [facility] Prescriptions Prescriptions: No Action sennosides 8.6 mg Tablet 17.2 mg PO DAILY acetaminophen [Tylenol] 325 mg Tablet 650 mg PO Q6 PRN (Reason: Fever Or Pain) atorvastatin 20 mg tablet 20 mg PO HS donepezil [Aricept] 5 mg Tablet 5 mg PO DAILY ketoconazole 2 % shampoo 1 applic TOPICAL 2XWK Rx Instructions: Q TUES & FRI in pm. insulin glargine [Lantus U-100 Insulin] 100 unit/mL solution 60 unit SUBCUT HS omega-3 fatty acids 1,000 mg Capsule 1,000 mg PO BIDM olanzapine 2.5 mg Tablet 2.5 mg PO TIDM famotidine 20 mg tablet 20 mg PO BIDM cyanocobalamin (vitamin B-12) 500 mcg Tablet 1,000 mcg PO DAILY insulin aspart U-100 [Novolog U-100 Insulin aspart] 100 unit/mL solution 0 unit subcut TIDM PRN (Reason: .per sliding scale) Rx Instructions: if 350-400=8units, 401-450= 12 units, 451-500=16units, >500 give 18 units & recheck BSG in 2 hrs. insulin aspart U-100 [Novolog U-100 Insulin aspart] 100 unit/mL solution 15 unit subcut TIDM Rx Instructions: Hold if eaten <50% ferrous sulfate 325 mg (65 mg iron) Tablet 325 mg PO DAILY melatonin 5 mg Tablet 5 mg PO HS menthol-zinc oxide [Calmoseptine] 0.44-20.6 % Ointment 1 applic TOPICAL AMPM Rx Instructions: APPLY TO BILATERAL BUTTOCKS/UPPER THIGH RASHY/OPEN AREAS. [place] Cough Drops 7.5 mg Lozenge 7 mg PO DIRECTED PRN (Reason: Cough) levothyroxine 50 mcg Tablet 50 mcg PO DAILYBB clotrimazole-betamethasone 1-0.05 % cream 1 applic TOPICAL BID Rx Instructions: APPLY UNDER BREASTS, GROIN AREA/ ABD FOLDS/LEFT THIGH RASH. warfarin 2 mg Tablet 2 mg PO HS Rx Instructions: TOTAL DOSE 7 MG--TAKES WITH 5 MG TAB. PER CENTRE CARE. warfarin 5 mg tablet 5 mg PO HS Rx Instructions: TOTAL DOSE 7 MG--TAKES WITH 2 MG TAB. PER CENTRE CARE [place] Greaseless 15-10 % Cream 1 applic TOPICAL QID Rx Instructions: BILATERAL SHOULDER PAIN diclofenac sodium [Voltaren] 1 % Gel 4 g TOPICAL QID Rx Instructions: APPLY TO BILATERAL KNEES Women's Multivitamin 18 mg iron-400 mcg-500 mg Tablet 1 tab PO DAILY Trulicity 1.5 mg/0.5 mL Pen Injector 1.5 mg SUBCUT WK Rx Instructions: [place] furosemide 40 mg tablet 40 mg PO BIDM Referrals Referrals: [facility] [Primary Care Provider] - Discharge Problem: Respiratory failure Qualifiers: Chronicity: acute on chronic Respiratory failure complication: hypoxia and hypercapnia Qualified Code(s): J96.21 - Acute and chronic respiratory failure with hypoxia COPD (chronic obstructive pulmonary disease) Qualifiers: COPD type: unspecified COPD Qualified Code(s): J44.9 - Chronic obstructive pulmonary disease, unspecified
[2023-07-09 16:27] LABS: Alanine Aminotransferase 46 U/L (7-52); Albumin Level 3.8 gm/dl (3.4-5.0); Alkaline Phosphatase 91 U/L (34-104); Anion Gap 7 (3-11); Aspartate Aminotransferase 41 U/L (13-39); BUN Creatinine Ratio 28.8 (10-20); Basophils # (auto) 0.04 K/uL (0.00-0.20); Basophils % (auto) 0.6 %; Bilirubin,Total 0.5 mg/dl (0.2-1.0); Blood Urea Nitrogen 49 mg/dl (6-23); Calcium 9.1 mg/dl (8.6-10.3); Carbon Dioxide 36 mmol/L (21-32); Chloride 100 mmol/L (98-107); Creatinine Clr Calc Pharmacy 37.8 ml/min; Eosinophils % (auto) 1.4 %; Est GFR (African American) 32.7 ml/min; Est GFR (Non-African American) 28.2 ml/min; Glucose 249 mg/dl (70-99(Fasting)); Hematocrit (blood only) 38.3 % (37.0-47.0); Hemoglobin 11.7 g/dl (12.0-16.0); Immature Granulocytes # (auto) 0.05 K/uL (0.01-0.20); Immature Granulocytes % (auto) 0.7 %; Lymphocytes # (auto) 1.27 K/uL (1.20-3.40); Lymphocytes % (auto) 18.2 %; Magnesium 1.8 mg/dl (1.7-2.4); Mean Corpuscular Hemoglobin 29.5 pg (25.0-34.0); Mean Corpuscular Hgb Conc 30.5 g/dL (32.0-36.0); Mean Corpuscular Volume 96.7 fL (80.0-100.0); Mean Platelet Volume 10.6 fL (9.4-12.4); Monocytes # (auto) 0.55 K/uL (0.11-0.59); Monocytes % (auto) 7.9 %; Neutrophils # (auto) 4.96 K/uL (1.40-6.50); Neutrophils % (auto) 71.2 %; Nucleated RBC # (auto) 0.06 K/uL (0.00-0.12); Nucleated RBC % (auto) 0.9 %; Platelet Count 274 K/uL (130-400); Platelet Estimate Normal (Normal); Polychromasia 1+; Potassium 4.1 mmol/L (3.5-5.1); RDW Coefficient of Variation 16.2 % (11.5-14.5); RDW Standard Deviation 57.5 fL (36.4-46.3); Red Blood Count 3.96 M/uL (4.20-5.40); Sodium 143 mmol/L (136-145); Stomatocytes 2+; Total Protein 7.5 gm/dl (6.0-8.3); White Blood Count 6.97 K/ul (4.8-10.8)
[2023-07-09 16:28] LABS: Troponin I High Sensitivity 27.8 pg/ml (0-14)
[2023-07-09 16:31] LABS: INR 2.4 (0.9-1.1); Partial Thromboplastin Ratio 0.9; Partial Thromboplastin Time 25 Seconds (21-31); Prothrombin Time 24.5 Seconds (9.0-12.0)
[2023-07-09 16:49] LABS: Adenovirus PCR Not Detected (NotDetected); Bordetella parapertussis PCR Not Detected (NotDetected); Bordetella pertussis PCR Not Detected (NotDetected); Chlamydia pneumoniae PCR Not Detected (NotDetected); Coronavirus 229E PCR Not Detected (NotDetected); Coronavirus CoV-2 (COVID19)PCR Not Detected (NotDetected); Coronavirus HKU1 PCR Not Detected (NotDetected); Coronavirus NL63 PCR Not Detected (NotDetected); Coronavirus OC43PCR Not Detected (NotDetected); Human Metapneumovirus PCR Not Detected (NotDetected); Influenza A PCR Not Detected (NotDetected); Influenza B PCR Not Detected (NotDetected); Mycoplasma pneumoniae PCR Not Detected (NotDetected); Parainfluenza Virus 1 PCR Not Detected (NotDetected); Parainfluenza Virus 2 PCR Not Detected (NotDetected); Parainfluenza Virus 3 PCR Not Detected (NotDetected); Parainfluenza Virus 4 PCR Not Detected (NotDetected); Respiratory Syncytial VirusPCR Not Detected (NotDetected); Rhinovirus/Enterovirus PCR Not Detected (NotDetected)
[2023-07-09 17:06] LABS: Appearance Urine Clear (Clear); Bacteria Urine Automated Negative (Negative); Bilirubin Urine Negative (Negative); Blood Urine Negative (Negative); Color Urine Yellow; Epithelial Cell Urine Auto 0-5 /lpf (0-5); Glucose Urine UA Negative (Negative); Ketones Urine Negative (Negative); Leukocyte Esterase Urine 2+ (Negative); Nitrite Urine Positive (Negative); Protein Urine Negative (Negative); RBC Urine Automated 0-4 /hpf (0-4); Specific Gravity Urine 1.013 (1.000-1.030); Urobilinogen Urine Negative (Negative)
[2023-07-09] MEDS: cefTRIAXone SODIUM 2,000 MG/50 ML BAG IV STA (17:31)
[2023-07-09] MEDS: ALBUT/IPRATROP 3MG/0.5MG NEB 3 ML VIAL NEB STA (17:38)
[2023-07-09 18:06] LABS: Base Excess ABG 9.4 mEq/L (-9-1.8); HCO3 ABG 39 mmol/L (19-24); Oxygen Saturation ABG 96.7 % (90-95); PCO2 ABG 77 mmHg (35-46); PO2 ABG 95 mmHg (80-95); pH ABG 7.31 (7.35-7.45)
[2023-07-09 18:30] LABS: Allen Test Pos (Pos)
--- NOTE | 2023-07-09 19:19 | XRay Report ---
SINGLE VIEW CHEST CLINICAL HISTORY: Sepsis. FINDINGS: 2 AP, portable, upright chest radiographs are compared to study dated 06/08/2022. The examin ation is degraded by portable technique and patient rotation. The patient is status post midline ster notomy. The heart is enlarged and atherosclerotic calcification of the thoracic aorta. The pulmonary vasculature is known congestive. Chronic interstitial thickening is similar to previous. There is bib asilar scarring/atelectasis. The lungs and pleural spaces are otherwise clear. No pneumothorax is see n. The skeletal structures are osteopenic. The bony thorax is grossly intact. IMPRESSION: Cardiomegaly with no acute cardiopulmonary abnormality identified. ACT 112: Negative or not required by law. Electronically signed by: Glenn Hudson M.D. 07/09/2023 7:18 PM
[2023-07-09] MEDS ORDERED: CARBOHYDRATES FOR HYPOGLYCEMIA PO PRN (20:19)
[2023-07-09] MEDS ORDERED: GLUCAGON FOR INJ 1 MG VIAL SQ PRN (20:19)
[2023-07-09] MEDS ORDERED: ACETAMINOPHEN 325 MG TAB PO PRN (20:19)
[2023-07-09] MEDS ORDERED: GLUCOSE 10 TAB/TUBE PO PRN (20:19)
[2023-07-09] MEDS ORDERED: PHARMACY GLYCEMIC MGMT CONSULT PRN (20:19)
[2023-07-09] MEDS ORDERED: GLUCOSE 40% GEL 15 GM TUBE PO PRN (20:19)
[2023-07-09] MEDS ORDERED: DEXTROSE 50% 50 ML SYRINGE IV PRN (20:19)
[2023-07-09] MEDS ORDERED: INSULIN ASPART PER UNIT CHARGE SC SCH (21:00)
[2023-07-09] MEDS: LANTUS PER UNIT CHARGE SQ SCH (21:13)
--- NOTE | 2023-07-09 21:17 | History & Physical Report ---
Date of Service July 09, 2023 Assessment & Plan (1) Acute on chronic respiratory failure with hypoxia and hypercapnia: Plan: Prior admissions with CHF and possible pneumonia. Current CXR appears clear and BNP improved from prior admission in definitive CHF although unknown euvolemic BNP Suspect most likely etiology is increased confusion from UTI leading to decreased inspiratory effort in setting of obesity hypoventilation and KENAN COPD diagnosis noted although she was noted treated for this on prior hospitalizations, no wheezing on exam and not on maintenance inhalers, no prior PFTs to confirm diagnosis Low suspicion of PE given therapeutic INR Avoid sedating medications BiPAP 16/6 FiO2 40%, repeat ABG to determine ongoing settings, will repeat VBG in AM or sooner if getting more confused If blood gas getting worse low tolerance to move to ICU as she has required intubation in the past (2) Acute UTI (urinary tract infection): Plan: Possible diagnosis with nitrites and LE positive Follow up urine and blood cultures Ceftriaxone 2g IV daily (3) Obstructive sleep apnea: Plan: Must wear BiPAP at night or when sedated (4) Diastolic CHF: Plan: No acute exacerbation suspected but did not receve her usual lasix today. Will give 40mg IV now as her most concerning condition is respiratory so need to keep her lungs as dry as possible but no over pulmonary edema on CXR and BNP down from prior hospitalization with definitive pulmonary edema. Monitor I&Os and Cr. (5) Hypothyroidism: Plan: TSH with AM labs Continue on levothyroxine when able to safely swallow (6) History of pulmonary embolus (PE): Plan: Continue warfarin when able to safely swallow, INR therapeutic on admission (7) DMII (diabetes mellitus, type 2): Plan: HbA1C 9.3 in December 2022 Consult pharmacy for glycemic control (8) Elevated serum creatinine: Plan: Trial Lasix 40mg IV, repeat Cr in AM, if rising would favor holding off further Lasix dosing (9) Paroxysmal A-fib: Plan: Monitor on telemetry, current in NSR (10) GERD (gastroesophageal reflux disease): Plan: Switch famotidine PO to IV while unable to take PO meds Plan VTE Prophylaxis - INR therapeutic Diet - NPO Disposition - admit to PCU Admission and Anticipated Discharge Date Admission Date: July 09, 2023 History of Present Illness Chief Complaint: Shortness of breath and hypoxia Primary Care Provider: [facility] Patricia Don is a 77 year old female who presents to the ER from [facility] with shortness of breath, hypoxia and decreased responsiveness. Reportedly she had been on BiPAP all morning but her oxygen saturations then dropped to 69% without improvement. Unable to get any history from the patient. She has had prior hospitalization for acute on chronic hypoxic hypercapnic respiratory failure requiring intubation related to pneumonia and diastolic CHF. Notable history of non-compliance with BiPAP, echos etc... She remains full resuscitation just as prior hospitalizations per [facility] documentation. Allergies Allergy/AdvReac Type Severity Reaction Status Date / Time No Known Allergies Allergy Mild Verified 07/09/23 16:16 Home Medications Medication Instructions Recorded Confirmed Type acetaminophen 325 mg tablet 650 mg PO Q6 PRN Fever Or Pain 06/08/22 07/09/23 History (Tylenol) atorvastatin 20 mg tablet 20 mg PO HS 06/08/22 07/09/23 History cyanocobalamin (vitamin B-12) 500 1,000 mcg PO DAILY 06/08/22 07/09/23 History mcg tablet donepezil 5 mg tablet (Aricept) 5 mg PO DAILY 06/08/22 07/09/23 History famotidine 20 mg tablet 20 mg PO BIDM 06/08/22 07/09/23 History ferrous sulfate 325 mg (65 mg 325 mg PO DAILY 06/08/22 07/09/23 History iron) tablet insulin aspart U-100 100 unit/mL 0 unit subcut TIDM PRN .per 06/08/22 07/09/23 History subcutaneous solution (Novolog sliding scale U-100 Insulin aspart) insulin aspart U-100 100 unit/mL 15 unit subcut TIDM 06/08/22 07/09/23 History subcutaneous solution (Novolog U-100 Insulin aspart) insulin glargine 100 unit/mL 60 unit subcut HS 06/08/22 07/09/23 History subcutaneous solution (Lantus U-100 Insulin) ketoconazole 2 % shampoo 1 applic topical 2XWK 06/08/22 07/09/23 History melatonin 5 mg tablet 5 mg PO HS 06/08/22 07/09/23 History menthol 0.44 %-zinc oxide 20.6 % 1 applic topical AMPM 06/08/22 07/09/23 History topical ointment (Calmoseptine) menthol 7.5 mg lozenges ([place] 7 mg PO DIRECTED PRN Cough 06/08/22 07/09/23 History Cough Drops) olanzapine 2.5 mg tablet 2.5 mg PO TIDM 06/08/22 07/09/23 History omega-3 fatty acids 1,000 mg 1,000 mg PO BIDM 06/08/22 07/09/23 History capsule sennosides 8.6 mg tablet 17.2 mg PO DAILY 06/08/22 07/09/23 History clotrimazole-betamethasone 1 1 applic topical BID 07/09/23 07/09/23 History %-0.05 % topical cream diclofenac sodium 1 % topical gel 4 g topical QID 07/09/23 07/09/23 History dulaglutide 1.5 mg/0.5 mL 1.5 mg subcut WK 07/09/23 07/09/23 History subcutaneous pen injector (Trulicity) furosemide 40 mg tablet 40 mg PO BIDM 07/09/23 07/09/23 History levothyroxine 50 mcg tablet 50 mcg PO DAILYBB 07/09/23 07/09/23 History methyl salicylate 15 %-menthol 10 1 applic topical QID 07/09/23 07/09/23 History % topical cream balrlpws-[id number]-FA-Ca carb-vit K 1 tab PO DAILY 07/09/23 07/09/23 History 18 mg iron-400 mcg-500 mg tablet warfarin 2 mg tablet 2 mg PO HS 07/09/23 07/09/23 History warfarin 5 mg tablet 5 mg PO HS 07/09/23 07/09/23 History Past Med/Surg History Medical History (Updated 07/10/23 @ 07:20 by Dixon Huerta MD) Acute on chronic respiratory failure with hypoxia and hypercapnia Hypothyroidism Acute UTI Pneumonia Paroxysmal A-fib GERD (gastroesophageal reflux disease) Morbid obesity with BMI of 50.0-59.9, adult HTN (hypertension) Obstructive sleep apnea Diastolic CHF Pulmonary HTN Aortic valve stenosis Vitamin D deficiency CKD (chronic kidney disease) stage 3, GFR 30-59 ml/min Dyslipidemia Diabetes Surgical History History of cardiac cath Hx of total knee arthroplasty S/P AVR Family History Father Cancer pancreatic cancer Social History Smoking Status: Never smoker Second Hand Exposure: No; Do You Dip or Chew Tobacco: No; Hx Alcohol Use: No Hx Substance Use: No Preferred Language: Georgian Communication Ability: Impaired Communication Ability Comment: Pt is obtunded on bipap Soap Worker Required: No Beliefs That Will Affect Care: None marital status: Current Living Situation: [facility] Current Living Situation Comment: lives at home with son Other Information That Helps Us Care for You: No Feels Safe at Home: Yes Safety Concerns: Feels Safe At This Time Assistive Devices: BiPap and Oxygen - Continuous Review of Systems Review of Systems: Unobtainable due to cognitive status Physical Exam Constitutional: well developed and + morbidly obese; + not well nourished and no acute distress Eyes: PERRL, conjunctivae normal, anicteric sclerae ENMT: external ear and nose normal, oropharynx normal Respiratory: + labored breathing and + uses accessory muscles; expiratory phase not prolonged Auscultation: + diminished lung sounds (throughout); no crackles and no wheezes Cardiovascular: Rate/Rhythm: regular rate and regular rhythm Heart Sounds: no murmur Extremities: + pedal edema (1+ b/l equal) Gastrointestinal (Abdomen): Inspection/Auscultation: abdomen normal to inspection (no areas of cellulitis noted under skin folds or on abdomen) Percussion/Palpation: abdomen soft; abdomen nontender Skin: dry scaly rash mostly on back without any areas of cellulitis Neurologic: moves all extremities (upper extremities only), awake (to voice) and + confused (following one step commands (gripping fingers)) Psychiatric: A+Ox3, euthymic affect Results & Data Results & Data Vital Signs (Past 12 Hours) Vital Signs Temp Pulse Pulse Resp BP BP Pulse Ox 07/09/23 19:54 36.3 C L 64 18 127/80 96 07/09/23 19:00 67 16 101/61 95 07/09/23 18:15 72 19 97 07/09/23 18:10 73 20 155/79 H 100 07/09/23 18:00 129/72 07/09/23 18:00 69 9 L 96 07/09/23 17:45 66 12 133/67 98 07/09/23 17:41 68 16 95 07/09/23 17:39 68 16 95 07/09/23 17:30 67 17 130/71 96 07/09/23 17:30 130/71 07/09/23 17:15 69 15 101/63 94 07/09/23 17:00 71 20 117/62 95 07/09/23 16:45 75 20 144/89 H 94 07/09/23 16:30 75 21 106/61 94 07/09/23 16:15 79 17 133/70 95 07/09/23 16:00 77 18 96 07/09/23 16:00 123/82 07/09/23 15:56 83 24 97 07/09/23 15:52 86 07/09/23 15:47 80 18 97 07/09/23 15:47 124/84 07/09/23 15:45 82 26 H 97 07/09/23 15:42 36.5 C 82 18 124/88 97 07/09/23 15:42 07/09/23 15:39 07/09/23 15:38 84 24 95 O2 Del Method FiO2 07/09/23 19:54 BiPAP 40 07/09/23 19:00 BiPAP 35 07/09/23 18:15 07/09/23 18:10 07/09/23 18:00 07/09/23 18:00 07/09/23 17:45 07/09/23 17:41 BiPAP 35 07/09/23 17:39 35 07/09/23 17:30 07/09/23 17:30 07/09/23 17:15 07/09/23 17:00 07/09/23 16:45 07/09/23 16:30 07/09/23 16:15 BiPAP 07/09/23 16:00 07/09/23 16:00 07/09/23 15:56 35 07/09/23 15:52 07/09/23 15:47 BiPAP 07/09/23 15:47 07/09/23 15:45 BiPAP 07/09/23 15:42 Room Air 07/09/23 15:42 BiPAP 07/09/23 15:39 BiPAP 07/09/23 15:38 BiPAP Laboratory Results Abnormal lab results 07/09/23 07/09/23 07/09/23 Range/Units 15:45 16:52 17:56 RBC 3.96 L (4.20-5.40) M/uL Hgb 11.7 L (12.0-16.0) g/dl MCHC 30.5 L (32.0-36.0) g/dL RDW Std Deviation 57.5 H (36.4-46.3) fL RDW Coeff of Jacqueline 16.2 H (11.5-14.5) % PT 24.5 H (9.0-12.0) Seconds INR 2.4 H (0.9-1.1) ABG pH 7.31 L (7.35-7.45) ABG pCO2 77 H (35-46) mmHg ABG HCO3 39 H (19-24) mmol/L ABG O2 Saturation 96.7 H (90-95) % ABG Base Excess 9.4 H (-9-1.8) mEq/L VBG pH 7.32 L (7.36-7.41) VBG pCO2 75 H (38-50) mmHg Carbon Dioxide 36 H (21-32) mmol/L BUN 49 H (6-23) mg/dl Creatinine 1.70 H (0.6-1.2) mg/dl BUN/Creatinine Ratio 28.8 H (10-20) Glucose 249 H (70-99(Fasting)) mg/dl POC Glucose (70-99) mg/dl AST 41 H (13-39) U/L Troponin I High Sens 27.8 H 29.1 H (0-14) pg/ml B-Natriuretic Peptide 189 H (0-100) pg/ml Urine Nitrite Positive A (Negative) Ur Leukocyte Esterase 2+ H (Negative) Urine WBC (Auto) 10-30 H (0-5) /hpf Diagnostic Findings SINGLE VIEW CHEST CLINICAL HISTORY: Sepsis. FINDINGS: 2 AP, portable, upright chest radiographs are compared to study dated 06/08/2022. The examination is degraded by portable technique and patient rotation. The patient is status post midline sternotomy. The heart is enlarged and atherosclerotic calcification of the thoracic aorta. The pulmonary vasculature is known congestive. Chronic interstitial thickening is similar to previous. There is bibasilar scarring/atelectasis. The lungs and pleural spaces are otherwise clear. No pneumothorax is seen. The skeletal structures are osteopenic. The bony thorax is grossly intact. IMPRESSION: Cardiomegaly with no acute cardiopulmonary abnormality identified. Medications Administered ER Medications Given: Ceftriaxone 2g IV Duoneb 3ml NEB ECG Rate (beats per minute): 84 Rhythm: normal sinus Findings: + RBBB Comparison ECG Date: from (Jun 08, 2023) Change: the following changes noted (TWI more evident in anteroinferior leads) Code Status & VTE Plan Code Status Full per [facility] Care documentation VTE Prophylaxis Plan VTE Prophylaxis will be ordered: Yes Critical Care Time Critical Care Time: Yes Total Critical Care Time: 40 PG Care Time/CCT Total # of Minutes Spent Total Time Spent with Patient: Total time spent is greater than 50% in coordination of care (as documented) at patient's floor/unit and/or counseling patient: Critical Care Time: Yes Total Critical Care Time: 40 Coding Level of Care Code 74481 INT INP/OBS CARE 3/75MIN Diagnoses Acute on chronic respiratory failure with hypoxia and hypercapnia J96.21; J96.22 Acute UTI (urinary tract infection) N39.0 Obstructive sleep apnea G47.33 Diastolic CHF I50.30 Hypothyroidism E03.9 History of pulmonary embolus (PE) Z86.711 DMII (diabetes mellitus, type 2) E11.9 Elevated serum creatinine R79.89 Paroxysmal A-fib I48.0 GERD (gastroesophageal reflux disease) K21.9 Additional Codes Critical Care Time - Critical Care Time: Yes ([id number])
[2023-07-09] MEDS: FUROSEMIDE 40 MG/4 ML VIAL IV STA (21:44)
[2023-07-09] MEDS: WARFARIN SOD 2 MG TAB PO SCH (21:45)
[2023-07-09] MEDS: MELATONIN 3 MG TAB PO SCH (21:45)
[2023-07-09] MEDS: WARFARIN SOD 5 MG TAB PO SCH (21:45)
[2023-07-09] MEDS: ATORVASTATIN 20 MG TAB PO SCH (21:45)
[2023-07-09] MEDS ORDERED: FAMOTIDINE 200 MG/20 ML VIAL IV SCH (22:45)
[2023-07-09] MEDS: FAMOTIDINE 20 MG in SYRINGE 3 ML IV SCH (23:21)
[2023-07-10] MEDS: LEVOTHYROXINE SODIUM 50 MCG TABLET PO SCH (06:13)
[2023-07-10 07:12] LABS: Base Excess VBG 13.2 mEq/L; HCO3 VBG 44 mmol/L; Oxygen Saturation VBG 75.5 %; PCO2 VBG 89 mmHg (38-50); PO2 VBG 47 mmHg
[2023-07-10 07:17] LABS: Basophils # (auto) 0.04 K/uL (0.00-0.20); Basophils % (auto) 0.6 %; Eosinophils # (auto) 0.17 K/uL (0.00-0.50); Eosinophils % (auto) 2.6 %; Hematocrit (blood only) 38.6 % (37.0-47.0); Hemoglobin 11.6 g/dl (12.0-16.0); Immature Granulocytes # (auto) 0.04 K/uL (0.01-0.20); Immature Granulocytes % (auto) 0.6 %; Lymphocytes # (auto) 1.51 K/uL (1.20-3.40); Lymphocytes % (auto) 23.5 %; Mean Corpuscular Hemoglobin 29.4 pg (25.0-34.0); Mean Corpuscular Hgb Conc 30.1 g/dL (32.0-36.0); Mean Corpuscular Volume 97.7 fL (80.0-100.0); Mean Platelet Volume 9.9 fL (9.4-12.4); Monocytes # (auto) 0.48 K/uL (0.11-0.59); Monocytes % (auto) 7.5 %; Neutrophils # (auto) 4.18 K/uL (1.40-6.50); Neutrophils % (auto) 65.2 %; Nucleated RBC # (auto) 0.03 K/uL (0.00-0.12); Nucleated RBC % (auto) 0.5 %; Platelet Count 268 K/uL (130-400); RDW Coefficient of Variation 16.3 % (11.5-14.5); RDW Standard Deviation 58.7 fL (36.4-46.3); Red Blood Count 3.95 M/uL (4.20-5.40); White Blood Count 6.42 K/ul (4.8-10.8)
[2023-07-10 07:30] LABS: Estimated Average Glucose 206 mg/dl; Hemoglobin A1C 8.8 % (4.5-5.6)
[2023-07-10 07:41] LABS: INR 2.4 (0.9-1.1); Prothrombin Time 24.9 Seconds (9.0-12.0)
[2023-07-10 07:51] LABS: BUN Creatinine Ratio 31.9 (10-20); Blood Urea Nitrogen 45 mg/dl (6-23); Calcium 9.2 mg/dl (8.6-10.3); Carbon Dioxide 39 mmol/L (21-32); Chloride 103 mmol/L (98-107); Creatinine Clr Calc Pharmacy 42.2 ml/min; Est GFR (Non-African American) 35.3 ml/min; Glucose 198 mg/dl (70-99(Fasting)); Thyroid Stimulating Hormone 2.803 uIu/ml (0.300-4.500)
[2023-07-10] MEDS ORDERED: FAMOTIDINE 20 MG TAB PO SCH (08:00)
[2023-07-10 09:01] LABS: Magnesium 1.8 mg/dl (1.7-2.4); Potassium 4.2 mmol/L (3.5-5.1)
--- NOTE | 2023-07-10 09:04 | Critical Care Consultation ---
Date of Consultation July 10, 2023 Assessment & Plan (1) Acute and chronic respiratory failure: PLAN: Neuro: Acute encephalopathy: Likely multifactorial and metabolic in origin given UTI -Appears to be baseline dementia, suspect this is near her baseline -Continue Aricept Resp: Chronic respiratory failure -Was a mild change in the pCO2, different sampling techniques 1 ABG in 1 VBG however pH is essentially unchanged bicarbonate elevated Primary respiratory acidosis: Chronic, with secondary metabolic alkalosis -I would give patient trials of time without BiPAP. I suspect that while she does need her trilogy at night as her mental status improves her respiratory status will also improve Obstructive sleep apnea -Trilogy at night CV: Atrial fibrillation with systemic anticoagulation -Anticoagulated with Coumadin Fluids/Renal: CKD stage III -Creatinine appears near baseline ID: Gram-negative bacilli growing in urine -Continue with ceftriaxone until speciation, had previous cultures with different resistance patterns GI/Nutrition: History of duodenal ulcer -Continue with GI prophylaxis Heme: Baseline anemia DVT prophylaxis: Systemically anticoagulated with warfarin Endocrine: ICU hyperglycemia protocol Hypothyroidism -Continue current supplementation Vascular access: Peripheral IVs Code Status: Giving increasing frequency of hospitalization, goals of care discussion would be appropriate Disposition: Continue current treatment plan -Informed hospitalist medicine service (2) Anemia: (3) Morbid obesity: (4) CKD (chronic kidney disease) stage 3, GFR 30-59 ml/min: (5) Cellulitis of left leg: (6) History of pulmonary embolus (PE): (7) Dementia: (8) Acute UTI (urinary tract infection): (9) Obstructive sleep apnea: (10) COPD (chronic obstructive pulmonary disease): (11) Atrial fibrillation: History of Present Illness Reason for Consultation: Worsening respiratory failure Attending Physician: Wally Harp MD History of Present Illness Your patient is a 77-year-old female with a significant past medical history of chronic kidney disease stage III, diabetes, hypertension, hyperlipidemia, obstructive sleep apnea, paroxysmal atrial fibrillation: Persistent on Coumadin for systemic anticoagulation, heart failure with preserved ejection fraction, baseline dementia, history of acute hypoxic respiratory failure who presented to the emergency department yesterday for increasing lethargy. I was asked by the medicine team to evaluate the patient for worsening hypercapnic respiratory failure impending need for intubation. During my evaluation the patient was resting comfortably on BiPAP. She aroused easily to verbal stimuli. We took off the BiPAP mask to ease conversation. The patient is pleasantly demented she is able to systemically articulate that she is in the hospital, she is unclear of the day or year but that may be her baseline. She denied being hungry, denied shortness of breath and actually reported she was feeling okay. Allergies Allergy/AdvReac Type Severity Reaction Status Date / Time No Known Allergies Allergy Mild Verified 07/09/23 16:16 Home Medications Medication Instructions Recorded Confirmed Type acetaminophen 325 mg tablet 650 mg PO Q6 PRN Fever Or Pain 06/08/22 07/09/23 History (Tylenol) atorvastatin 20 mg tablet 20 mg PO HS 06/08/22 07/09/23 History cyanocobalamin (vitamin B-12) 500 1,000 mcg PO DAILY 06/08/22 07/09/23 History mcg tablet donepezil 5 mg tablet (Aricept) 5 mg PO DAILY 06/08/22 07/09/23 History famotidine 20 mg tablet 20 mg PO BIDM 06/08/22 07/09/23 History ferrous sulfate 325 mg (65 mg 325 mg PO DAILY 06/08/22 07/09/23 History iron) tablet insulin aspart U-100 100 unit/mL 0 unit subcut TIDM PRN .per 06/08/22 07/09/23 History subcutaneous solution (Novolog sliding scale U-100 Insulin aspart) insulin aspart U-100 100 unit/mL 15 unit subcut TIDM 06/08/22 07/09/23 History subcutaneous solution (Novolog U-100 Insulin aspart) insulin glargine 100 unit/mL 60 unit subcut HS 06/08/22 07/09/23 History subcutaneous solution (Lantus U-100 Insulin) ketoconazole 2 % shampoo 1 applic topical 2XWK 06/08/22 07/09/23 History melatonin 5 mg tablet 5 mg PO HS 06/08/22 07/09/23 History menthol 0.44 %-zinc oxide 20.6 % 1 applic topical AMPM 06/08/22 07/09/23 History topical ointment (Calmoseptine) menthol 7.5 mg lozenges ([place] 7 mg PO DIRECTED PRN Cough 06/08/22 07/09/23 History Cough Drops) olanzapine 2.5 mg tablet 2.5 mg PO TIDM 06/08/22 07/09/23 History omega-3 fatty acids 1,000 mg 1,000 mg PO BIDM 06/08/22 07/09/23 History capsule sennosides 8.6 mg tablet 17.2 mg PO DAILY 06/08/22 07/09/23 History clotrimazole-betamethasone 1 1 applic topical BID 07/09/23 07/09/23 History %-0.05 % topical cream diclofenac sodium 1 % topical gel 4 g topical QID 07/09/23 07/09/23 History dulaglutide 1.5 mg/0.5 mL 1.5 mg subcut WK 07/09/23 07/09/23 History subcutaneous pen injector (Trulicity) furosemide 40 mg tablet 40 mg PO BIDM 07/09/23 07/09/23 History levothyroxine 50 mcg tablet 50 mcg PO DAILYBB 07/09/23 07/09/23 History methyl salicylate 15 %-menthol 10 1 applic topical QID 07/09/23 07/09/23 History % topical cream [id number]-[id number]-[id number]-FA-Ca carb-vit K 1 tab PO DAILY 07/09/23 07/09/23 History 18 mg iron-400 mcg-500 mg tablet warfarin 2 mg tablet 2 mg PO HS 07/09/23 07/09/23 History warfarin 5 mg tablet 5 mg PO HS 07/09/23 07/09/23 History Patient History Medical History Acute on chronic respiratory failure with hypoxia and hypercapnia Hypothyroidism Acute UTI Pneumonia Paroxysmal A-fib GERD (gastroesophageal reflux disease) Morbid obesity with BMI of 50.0-59.9, adult HTN (hypertension) Obstructive sleep apnea Diastolic CHF Pulmonary HTN Aortic valve stenosis Vitamin D deficiency CKD (chronic kidney disease) stage 3, GFR 30-59 ml/min Dyslipidemia Diabetes Surgical History History of cardiac cath Hx of total knee arthroplasty S/P AVR Family History Father Cancer pancreatic cancer Social History Smoking Status: Never smoker Second Hand Exposure: No; Do You Dip or Chew Tobacco: No; Hx Alcohol Use: No Hx Substance Use: No Preferred Language: Divehi Communication Ability: Impaired Communication Ability Comment: Pt is obtunded on bipap Loan Specialist Required: No Beliefs That Will Affect Care: None marital status: Current Living Situation: Skilled Nursing Current Living Situation Comment: lives at home with son Other Information That Helps Us Care for You: No Feels Safe at Home: Yes Safety Concerns: Feels Safe At This Time Assistive Devices: BiPap and Oxygen - Continuous Physical Exam Physical Exam: General: Alert arouses to verbal stimuli and maintains contact. nontoxic. Skin: Warm, dry, Head: Atraumatic Ears, nose, mouth and throat: airway patent Cardiovascular: Normal peripheral perfusion Respiratory: no respiratory distress, speaks in full sentences no pursed lip breathing no accessory muscle use Gastrointestinal: Non distended Musculoskeletal: No deformity Results & Data Results & Data Vital Signs (Past 12 Hours) Vital Signs Temp Pulse Pulse Resp BP Pulse Ox O2 Del Method 07/10/23 07:30 36.7 C 69 18 135/73 97 BiPAP 07/10/23 07:12 78 18 96 07/10/23 02:52 36.6 C 62 16 122/76 99 BiPAP 07/10/23 02:09 77 17 95 07/09/23 23:28 36.8 C 82 18 126/82 99 BiPAP 07/09/23 21:26 BiPAP FiO2 07/10/23 07:30 07/10/23 07:12 40 07/10/23 02:52 07/10/23 02:09 40 07/09/23 23:28 07/09/23 21:26 Critical Care Results & Data Vital Signs (Past 12 Hours) Vital Signs Temp Pulse Pulse Resp BP Pulse Ox O2 Del Method 07/10/23 07:30 36.7 C 69 18 135/73 97 BiPAP 07/10/23 07:12 78 18 96 07/10/23 02:52 36.6 C 62 16 122/76 99 BiPAP 07/10/23 02:09 77 17 95 07/09/23 23:28 36.8 C 82 18 126/82 99 BiPAP 07/09/23 21:26 BiPAP FiO2 07/10/23 07:30 07/10/23 07:12 40 07/10/23 02:52 07/10/23 02:09 40 07/09/23 23:28 07/09/23 21:26 Lab & Micro Results (Past 24 Hours) RBC 3.95 M/uL (4.20-5.40) L 07/10/23 WBC 6.42 K/ul (4.8-10.8) 07/10/23 Hgb 11.6 g/dl (12.0-16.0) L 07/10/23 Hct 38.6 % (37.0-47.0) 07/10/23 MCV 97.7 fL (80.0-100.0) 07/10/23 MCH 29.4 pg (25.0-34.0) 07/10/23 MCHC 30.1 g/dL (32.0-36.0) L 07/10/23 RDW Standard Deviation 58.7 fL (36.4-46.3) H 07/10/23 RDW Coefficient of Variation 16.3 % (11.5-14.5) H 07/10/23 Plt Count 268 K/uL (130-400) 07/10/23 MPV 9.9 fL (9.4-12.4) 07/10/23 Nucleated Red Blood Cells % (auto) 0.5 % 07/10 Nucleated RBC Absolute Count (auto) 0.03 K/uL (0.00-0.12) 0 07/10/23 Neutrophils (%) (Auto) 65.2 % 07/10/23 Lymphocytes (%) (Auto) 23.5 % 07/10/23 Monocytes # (Auto) 0.48 K/uL (0.11-0.59) 07/10/23 Eosinophils # (Auto) 0.17 K/uL (0.00-0.50) 07/10/23 Immature Granulocyte % (Auto) 0.6 % 07/10/23 Neutrophils # (Auto) 4.18 K/uL (1.40-6.50) 07/10/23 Lymphocytes # (Auto) 1.51 K/uL (1.20-3.40) 07/10/23 Monocytes # (Auto) 0.48 K/uL (0.11-0.59) 07/10/23 Eosinophils # (Auto) 0.17 K/uL (0.00-0.50) 07/10/23 Basophils # (Auto) 0.04 K/uL (0.00-0.20) 07/10/23 Immature Granulocyte # (Auto) 0.04 K/uL (0.01-0.20) 4 Polychromasia 1+ 07/09/23 Stomatocytes 2+ 07/09/23 Na 148 mmol/L (136-145) H 07/10/23 K 4.2 mmol/L (3.5-5.1) 07/10/23 Cl 103 mmol/L (98-107) 07/10/23 CO2 39 mmol/L (21-32) H 07/10/23 Anion Gap TNP 07/10/23 BUN 45 mg/dl (6-23) H 07/10/23 Creatinine 1.41 mg/dl (0.6-1.2) H 07/10/23 Estimated GFR ( Amer) 41.0 ml/min 07/10/23 Estimated GFR (Non-Af Amer) 35.3 ml/min 07/10/23 BUN/Creatinine Ratio 31.9 (10-20) H 07/10/23 Glu 198 mg/dl (70-99(Fasting)) H 07/10/23 Ca 9.2 mg/dl (8.6-10.3) 07/10/23 Total Bilirubin 0.5 mg/dl (0.2-1.0) 07/09/23 Direct Bilirubin 0.0 mg/dl (0-0.2) 07/09/23 AST 41 U/L (13-39) H 07/09/23 ALT 46 U/L (7-52) 07/09/23 Alkaline Phosphatase 91 U/L (34-104) 07/09/23 TP 7.5 gm/dl (6.0-8.3) 07/09/23 Albumin 3.8 gm/dl (3.4-5.0) 07/09/23 Mg 1.8 mg/dl (1.7-2.4) 07/10/23 08:13 Calcium Level 9.2 mg/dl (8.6-10.3) 07/10/23 07:03 Prothromb Time International Ratio 2.4 (0.9-1.1) H 07/10/23 07 :03 Venous Blood pH 7.30 (7.36-7.41) L 07/10/23 07:03 Venous Blood Partial Pressure CO2 89 mmHg (38-50) H 07/10/23 07 :03 Venous Blood Partial Pressure O2 47 mmHg 07/10/23 07:03 Venous Blood HCO3 44 mmol/L 07/10/23 07:03 Venous Blood Base Excess 13.2 mEq/L 07/10/23 07:03 Venous Blood Oxygen Saturation 75.5 % 07/10/23 07:03 Arterial Blood pH 7.31 (7.35-7.45) L 07/09/23 17:56 Arterial Blood Partial Pressure CO2 77 mmHg (35-46) H 07/09/23 17:56 Arterial Blood Partial Pressure O2 95 mmHg (80-95) 07/09/23 17: 56 Arterial Blood HCO3 39 mmol/L (19-24) H 07/09/23 17:56 Arterial Blood Base Excess 9.4 mEq/L (-9-1.8) H 07/09/23 17:56 Arterial Blood Oxygen Saturation 96.7 % (90-95) H 07/09/23 17:5 6 Blood Gas Oxygen Given 35% 07/09/23 17:56 Jose Test Pos (Pos) 07/09/23 17:56 Microbiology 07/09/23 16:52 Urine Culture - Preliminary Urine,Straight Cath Gram negative bacilli Diagnostic Findings (Past 24 Hours) Chest X-Ray 07/09/23 15:39 SINGLE VIEW CHEST CLINICAL HISTORY: Sepsis. FINDINGS: 2 AP, portable, upright chest radiographs are compared to study dated 06/08/2022. The examination is degraded by portable technique and patient rotation. The patient is status post midline sternotomy. The heart is enlarged and atherosclerotic calcification of the thoracic aorta. The pulmonary vasculature is known congestive. Chronic interstitial thickening is similar to previous. There is bibasilar scarring/atelectasis. The lungs and pleural spaces are otherwise clear. No pneumothorax is seen. The skeletal structures are osteopenic. The bony thorax is grossly intact. IMPRESSION: Cardiomegaly with no acute cardiopulmonary abnormality identified. ACT 112: Negative or not required by law. Electronically signed by: Glenn Hudson M.D. 07/09/2023 7:18 PM I & O Totals 24 Hours 07/09/23 07/10/23 07/11/23 06:59 06:59 06:59 Intake Total 50 / 50 Output Total 725 / 725 Balance -675 / -675 Cumulative 07/09/23 15:25 thru 07/10/23 05:39 Intake Total 50 Output Total 725 Balance -675 RT Ventilator Mngmt (Last Documented) Ventilator Ordered Settings Respiratory Rate 18 07/10/23 07:30 Fraction of Inspired Oxygen 40 07/10/23 07:12 Ventilator - PT Measurements Respiratory Rate 18 Coding Level of Care Code 46237 IN/OBS CONSULT LVL 4,60M Diagnoses Acute and chronic respiratory failure J96.21 Respiratory failure complication: hypoxia Anemia D64.9 Morbid obesity E66.01 CKD (chronic kidney disease) stage 3, GFR 30-59 ml/min N18.30 Cellulitis of left leg L03.116 History of pulmonary embolus (PE) Z86.711 Dementia F03.90 Acute UTI (urinary tract infection) N39.0 Obstructive sleep apnea G47.33 COPD (chronic obstructive pulmonary disease) J44.9 COPD type: unspecified COPD Atrial fibrillation I48.91 (1) Acute and chronic respiratory failure Respiratory failure complication: hypoxia Qualified Code(s): J96.21 - Acute and chronic respiratory failure with hypoxia (10) COPD (chronic obstructive pulmonary disease) COPD type: unspecified COPD Qualified Code(s): J44.9 - Chronic obstructive pulmonary disease, unspecified
[2023-07-10] MEDS: DONEPEZIL HCL 5 MG TAB PO SCH (10:02)
[2023-07-10] MEDS: SENNA 8.6 MG TAB PO SCH (10:02)
[2023-07-10] MEDS: CYANOCOBALAMIN (B-12) 500 MCG TABLET PO SCH (10:03)
[2023-07-10 10:16] LABS: Base Excess ABG 12.9 mEq/L (-9-1.8); HCO3 ABG 42 mmol/L (19-24); Oxygen Saturation ABG 98.7 % (90-95); PCO2 ABG 77 mmHg (35-46); PO2 ABG 101 mmHg (80-95); pH ABG 7.34 (7.35-7.45)
[2023-07-10 10:17] LABS: Allen Test Pos (Pos)
--- NOTE | 2023-07-10 11:24 | Hospitalist Progress Note ---
Date of Service July 10, 2023 Assessment & Plan (1) Acute on chronic respiratory failure with hypoxia and hypercapnia: Plan: -Acute on chronic hypoxic/hypercapnic respiratory failure likely secondary to metabolic encephalopathy from urosepsis in setting of uncontrolled KENAN/OHS. Admitted in 01/2022 for similar presentation ultimately requiring intubation -Noted respiratory acidosis w/ metabolic alkalosis -Repeat ABG in AM demonstrating mild improvement in acidosis, pH 7.31 to 7.34, pCO2 unchanged at 77 -Started on BIPAP in ER- 29/10, FiO2 40% on admission, gradual improvement in settings noted over day -ICU consulted- patient does not need ICU transfer now, recommend trials of time off BIPAP in daytime for weaning -Low suspicion for active pulmonary infection at present- CXR demonstrating cardiomegaly and vascular congestion but no PNA -Some improvement in hemodynamics, respiratory status and mental status noted today -Repeat CBC, CMP, ABG in AM -Pt noted to have multiple hospitalizations recently, GOC to be addressed with family this hospitalization (2) Acute UTI (urinary tract infection): Plan: -Possible diagnosis with nitrites and LE positive though unable to assess if pt has had urinary symptoms -Ceftriaxone 2g IV daily for now -Follow up urine and blood cultures (3) Obstructive sleep apnea: Plan: Must wear BiPAP at night or when sedated (4) Diastolic CHF: Plan: -Noted history of HFpEF though not in acute exacerbation -CXR- cardiomegaly and pulmonary vascular congestion w/o pulmonary edema -S/p Lasix 40 mg IV in ER -Continue daily Lasix, dose decreased to 20 mg IV -Last TTE 02/2022- EF 60-65% -Repeat ordered -Monitor BMP, volume status (5) Hypothyroidism: Plan: -TSH wnl -Continue on levothyroxine when able to safely swallow (6) History of pulmonary embolus (PE): Plan: -Continue warfarin when able to safely swallow, INR therapeutic on admission (7) DMII (diabetes mellitus, type 2): Plan: -HbA1C 9.3% in 12/2022 -Pharmacy consulted on admission -ALEIDA Dominguez in hospital (8) Elevated serum creatinine: Plan: -Cr 1.7 on admission, baseline appears 1.1-1.3 -CIERA likely from urosepsis/dehydration -S/p Lasix 40 mg IV in ER -Cr improving to 1.4 -Will continue daily Lasix diuresis for now at low dose- 20 mg IV daily. Discontinue once Cr increases (9) Paroxysmal A-fib: Plan: -Currently in NSR -Not on any rate control agents per home medications -Anticoagulated with warfarin- INR therapeutic range -Telemetry monitoring (10) GERD (gastroesophageal reflux disease): Plan: -Continue famotidine IV (11) Elevated troponin: Plan: -Troponin 28 -> 29 on admission -Likely type 2 AK/demand from respiratory failure + urosepsis -Will stop trending Plan VTE Prophylaxis - INR therapeutic with warfarin Diet - NPO due to AMS Disposition - PCU Admission and Anticipated Discharge Date Admission Date: July 09, 2023 Supervising Physician Co-Signing Physician Notes Attending attestation Pt seen and examined in concert with Dr. Kerr. In agreement with the documented findings as noted in the resident documentation with any exceptions or additions as noted here. Patient arousable to voice at time of examination which is an improvement over previous. On examination, S1/S2 nl RRR no MCG. CTAB. Abd NT/ND BS+ve Acute on chronic hypoxic respiratory failure with hypercapnia - ICU aware but ABG improving with BIPAP administration. Continue CBC, CMP, ABG trend qAM and PRN Acute UTI - continue ceftriaxone, follow up cultures. KENAN - BIPAP while asleep Else see resident documentation as noted. Subjective Acute events overnight- none. Pt examined at bedside. At time of initial evaluation, she was unresponsive while on BIPAP. On subsequent evaluation approximately 2 hours later, she was responsive and able to engage minimally in conversation. Review of Systems Review of Systems: Per HPI/Subjective Physical Exam Constitutional: well developed and + morbidly obese; + not well nourished and no acute distress Eyes: No conjunctival injection, anicteric sclerae ENMT: external ear and nose normal, oropharynx normal Respiratory: + labored breathing and + uses accessory muscles; expiratory phase not prolonged Auscultation: + diminished lung sounds (throughout); no crackles and no wheezes Cardiovascular: Rate/Rhythm: regular rate and regular rhythm Heart Sounds: no murmur Extremities: + pedal edema (1+ b/l equal) Gastrointestinal (Abdomen): Inspection/Auscultation: abdomen normal to inspection (no areas of cellulitis noted under skin folds or on abdomen) Percussion/Palpation: abdomen soft; abdomen nontender Neurologic: + obtunded No response to commands or noxious stimuli (initial exam) Results & Data Results & Data Vital Signs (Past 12 Hours) Vital Signs Temp Pulse Pulse Resp BP Pulse Ox O2 Del Method 07/10/23 11:09 77 18 97 07/10/23 07:30 36.7 C 69 18 135/73 97 BiPAP 07/10/23 07:12 78 18 96 07/10/23 02:52 36.6 C 62 16 122/76 99 BiPAP 07/10/23 02:09 77 17 95 07/09/23 23:28 36.8 C 82 18 126/82 99 BiPAP FiO2 07/10/23 11:09 40 07/10/23 07:30 07/10/23 07:12 40 07/10/23 02:52 07/10/23 02:09 40 07/09/23 23:28 Resident Activity Tracking Resident Involvement: Resident Care Provided Care Provided: Adult Hospital Medicine
--- NOTE | 2023-07-10 13:34 | Electrocardiogram Report ---
Test Reason : Blood Pressure : / mmHG Vent. Rate : 084 BPM Atrial Rate : 084 BPM P-R Int : 202 ms QRS Dur : 146 ms QT Int : 404 ms P-R-T Axes : 073 088 -23 degrees QTc Int : 477 ms Normal sinus rhythm Right bundle branch block T wave abnormality, consider inferior ischemia Abnormal ECG When compared with ECG of 08-JUN-2022 06:05, T wave inversion more evident in Inferior leads T wave inversion more evident in Anterior leads Confirmed by Ramsey Taveras ([id number]) on 07/10/2023 1:33:43 PM Referred By: Confirmed By:Ramsey Taveras
[2023-07-10] MEDS: INSULIN ASPART PER UNIT CHARGE SC SCH ×2 (14:13→18:01)
--- NOTE | 2023-07-10 14:27 | Pharmacy Report ---
Pharmacy Glycemic Short Note 2 - Date of Service July 10, 2023 - Glycemic Short BSG Results (Last 24 hours): 07/09/23 07/09/23 07/10/23 15:45 20:29 07:03 Glucose 249 H 198 H POC Glucose 270 H 07/10/23 07/10/23 07:38 11:35 Glucose POC Glucose 102 H 231 H OUTPATIENT ANTIDIABETIC REGIMEN: * Lantus 60 units SC HS * Novolog 15 units TID + SSI * Trulicity 1.5 mg SC weekly HbA1c = 8.8% ASSESSMENT: * 77 y/o F admitted with AMS and acute respiratory failure last night. She has history of Type 2 diabetes and stage 3 CKD. * One third of home basal dose (20 units) given last night. Novolog started based on moderate stress. * Fasting BSG = 102 mg/dl today. Continued with same basal dose. * Currently patient is NPO. PLAN FOR INPATIENT GLYCEMIC CONTROL: * Hold outpatient diabetes medications * Basal insulin * Lantus 20 units SQ HS * Bolus insulin * NovoLog per scale ACHS or Q6hrs while NPO * Goal Range: Low 110 mg/dL - High 140 mg/dL * Correction Factor: 15 mg/dL/unit * Nutritional / Prandial insulin per carb ratio of 1 unit per 5 grams CHO consumed
[2023-07-10] MEDS ORDERED: Nursing to Pharmacy Communication SCH (16:30)
[2023-07-10] MEDS: cefTRIAXone SODIUM 2,000 MG in DEXTROSE 5 % MINI-B 50 ML IV SCH (17:57)
[2023-07-10] MEDS ORDERED: INSULIN ASPART PER UNIT CHARGE SC SCH (20:45)
[2023-07-10] MEDS: LANTUS PER UNIT CHARGE SC SCH (21:06)
--- NOTE | 2023-07-11 07:23 | Hospitalist Progress Note ---
Date of Service July 11, 2023 Assessment & Plan (1) Acute on chronic respiratory failure with hypoxia and hypercapnia: (2) Acute UTI (urinary tract infection): (3) Obstructive sleep apnea: (4) Diastolic CHF: (5) Hypothyroidism: (6) History of pulmonary embolus (PE): (7) DMII (diabetes mellitus, type 2): (8) Elevated serum creatinine: (9) Paroxysmal A-fib: (10) GERD (gastroesophageal reflux disease): (11) Elevated troponin: Plan Acute on chronic respiratory failure with hypoxia and hypercapnia -Acute on chronic hypoxic/hypercapnic respiratory failure likely secondary to metabolic encephalopathy from urosepsis in setting of uncontrolled KENAN/OHS. Admitted in 01/2022 for similar presentation ultimately requiring intubation -Noted respiratory acidosis w/ metabolic alkalosis -Repeat ABG in AM demonstrating mild improvement in acidosis, pH 7.31 to 7.34, pCO2 unchanged at 77 -Started on BIPAP in ER- 29/10, FiO2 40% on admission, gradual improvement in settings noted over day -Low suspicion for active pulmonary infection at present- CXR demonstrating cardiomegaly and vascular congestion but no PNA -Improvement in hemodynamics, respiratory status and mental status noted today -Family notes patient often removes her Trelegy at home but mentation improves when she complies with it -Repeat CBC, CMP in a.m. -Goal to return to [facility] tomorrow Acute UTI (urinary tract infection) -Possible diagnosis with nitrites and LE positive though unable to assess if pt has had urinary symptoms -Urine culture grew pansensitive klebsiella. Will switch from Ceftriaxone to Cefdinir to finish course of abx Obstructive sleep apnea Must wear BiPAP at night or when sedated Diastolic CHF -Noted history of HFpEF though not in acute exacerbation -CXR- cardiomegaly and pulmonary vascular congestion w/o pulmonary edema -S/p Lasix 40 mg IV in ER -Continue daily Lasix, dose decreased to 20 mg IV -Last TTE 02/2022- EF 60-65% -Monitor BMP, volume status Hypothyroidism -TSH wnl -Continue on levothyroxine when able to safely swallow History of pulmonary embolus (PE) -Continue warfarin when able to safely swallow, INR therapeutic on admission DMII (diabetes mellitus, type 2) -HbA1C 9.3% in 12/2022 -Pharmacy consulted on admission -ALEIDA Dominguez in hospital Elevated serum creatinine -Cr 1.7 on admission, baseline appears 1.1-1.3 -CIERA likely from urosepsis/dehydration -S/p Lasix 40 mg IV in ER -Cr improving -Will continue daily Lasix diuresis for now at low dose- 20 mg IV daily. Discontinue once Cr increases Paroxysmal A-fib -Currently in NSR -Not on any rate control agents per home medications -Anticoagulated with warfarin- INR therapeutic range -Telemetry monitoring GERD (gastroesophageal reflux disease) -Continue famotidine IV Elevated troponin -Troponin 28 -> 29 on admission -Likely type 2 [place]/demand from respiratory failure + urosepsis -Will stop trending Plan VTE Prophylaxis - INR therapeutic with warfarin Diet - heart healthy, fluid restriction Disposition - med tele Admission and Anticipated Discharge Date Admission Date: July 09, 2023 Supervising Physician Co-Signing Physician Notes Attending attestation I personally examined the patient and verified all marquez points of history and exam, discussed case, and agree with decision making with Dr Marbella Herring on wanting to leave the hospital. no physical complaints vitals noted nad heent nc at mmm breathing unlabored no accessory muscles good effort skin no rashes no pallor or icterus Acute on chronic hypoxic respiratory failure with hypercapnia - seems to have improved. reportedly removes trelogy often Acute UTI - crane S klebsiella KENAN - BIPAP while asleep [facility] otherwise as above Subjective No acute events reported overnight. Her daughter is at bedside during encounter, notes that patient is somewhat confused but this is about her baseline. She denies any current pain or discomfort, is eager to go back to [facility]. Review of Systems Review of Systems: As per above Physical Exam Constitutional: WD/WN, vitals as above Eyes: + anicteric sclerae; no conjunctival abn ormality ENMT: Ears: no external ear abnormality Nose: no external nose abnormality moist mucous membranes Respiratory: Nasal cannula in place, lungs with some diminished bases/shallower breaths. Cardiovascular: Rate/Rhythm: regular rate and regular rhythm +1 edema of bilateral lower extremities Gastrointestinal (Abdomen): normal bowel sounds, soft, nontender, no hepatosplenomegaly Skin: no rashes, warm and dry Genitourinary: Bruno catheter in place Results & Data Results & Data Vital Signs (Past 12 Hours) Vital Signs Temp Pulse Pulse Resp BP Pulse Ox Pulse Ox 07/11/23 03:04 59 L 16 94 07/11/23 03:00 36.3 C L 60 18 117/55 L 99 07/10/23 23:00 36.5 C 70 18 110/66 96 07/10/23 20:20 07/10/23 20:19 95 07/10/23 20:04 36.6 C 72 20 132/64 95 O2 Del Method O2 Del Method O2 Flow Rate FiO2 07/11/23 03:04 40 07/11/23 03:00 CPAP 07/10/23 23:00 CPAP 07/10/23 20:20 Nasal Cannula 3 07/10/23 20:19 Nasal Cannula 07/10/23 20:04 Nasal Cannula 4 Resident Activity Tracking Resident Involvement: Resident Care Provided Care Provided: Adult Hospital Medicine
[2023-07-11] MEDS: FUROSEMIDE INJ 20 MG/2 ML VIAL IV SCH (08:14)
[2023-07-11 08:36] LABS: Base Excess VBG 14.4 mEq/L; HCO3 VBG 44 mmol/L; Oxygen Saturation VBG < 60.0 %; PCO2 VBG 82 mmHg (38-50); PO2 VBG 28 mmHg; pH VBG 7.34 (7.36-7.41)
[2023-07-11 08:47] LABS: Basophils # (auto) 0.03 K/uL (0.00-0.20); Basophils % (auto) 0.5 %; Eosinophils # (auto) 0.18 K/uL (0.00-0.50); Hematocrit (blood only) 38.4 % (37.0-47.0); Hemoglobin 11.5 g/dl (12.0-16.0); Immature Granulocytes # (auto) 0.02 K/uL (0.01-0.20); Immature Granulocytes % (auto) 0.3 %; Lymphocytes # (auto) 1.47 K/uL (1.20-3.40); Lymphocytes % (auto) 24.6 %; Mean Corpuscular Hemoglobin 29.9 pg (25.0-34.0); Mean Corpuscular Hgb Conc 29.9 g/dL (32.0-36.0); Mean Platelet Volume 9.9 fL (9.4-12.4); Monocytes # (auto) 0.44 K/uL (0.11-0.59); Monocytes % (auto) 7.4 %; Neutrophils # (auto) 3.84 K/uL (1.40-6.50); Neutrophils % (auto) 64.2 %; Platelet Count 270 K/uL (130-400); RDW Coefficient of Variation 16.6 % (11.5-14.5); RDW Standard Deviation 59.5 fL (36.4-46.3); Red Blood Count 3.84 M/uL (4.20-5.40); White Blood Count 5.98 K/ul (4.8-10.8)
[2023-07-11 09:19] LABS: Prothrombin Time 20.5 Seconds (9.0-12.0)
[2023-07-11 09:32] LABS: BUN Creatinine Ratio 28.2 (10-20); Calcium 9.4 mg/dl (8.6-10.3); Creatinine Clr Calc Pharmacy 45.5 ml/min; Est GFR (African American) 44.8 ml/min; Est GFR (Non-African American) 38.6 ml/min
[2023-07-11 09:35] LABS: Potassium 4.2 mmol/L (3.5-5.1)
--- NOTE | 2023-07-11 14:15 | Pharmacy Report ---
Pharmacy Glycemic Short Note 2 - Date of Service July 11, 2023 - Glycemic Short BSG Results (Last 24 hours): 07/10/23 07/10/23 07/11/23 16:43 20:42 07:25 Glucose POC Glucose 166 H 111 H 166 H 07/11/23 07/11/23 07/11/23 08:18 11:08 12:16 Glucose 170 H POC Glucose 232 H 215 H OUTPATIENT ANTIDIABETIC REGIMEN: * Lantus 60 units SC HS * Novolog 15 units TID + SSI * Trulicity 1.5 mg SC weekly HbA1c = 8.8% ASSESSMENT: 07/11 * Patient received total of 34 units of insulin yesterday, of which 20 units were basal * Fasting BSG 170 mg/dL - changed from NPO to diet at dinner last evening. Will increase basal to 30 units today as diet continued. Still limited PO intake today. May need to further increase basal tomorrow closer to home dose 07/10 * 77 y/o F admitted with AMS and acute respiratory failure last night. She has history of Type 2 diabetes and stage 3 CKD. * One third of home basal dose (20 units) given last night. Novolog started based on moderate stress. * Fasting BSG = 102 mg/dl today. Continued with same basal dose. * Currently patient is NPO. PLAN FOR INPATIENT GLYCEMIC CONTROL: * Hold outpatient diabetes medications * Basal insulin * Lantus 30 units with dinner * Bolus insulin * NovoLog per scale ACHS or Q6hrs while NPO * Goal Range: Low 110 mg/dL - High 140 mg/dL * Correction Factor: 15 mg/dL/unit * Nutritional / Prandial insulin per carb ratio of 1 unit per 5 grams CHO consumed
[2023-07-11] MEDS: LANTUS PER UNIT CHARGE SC ONE (17:24)
--- NOTE | 2023-07-11 17:37 | Billing Data ---
Date of Service July 11, 2023 Coding Level of Care Code 06623 SUB INP/OBS CARE
[2023-07-11] MEDS: CEFDINIR 300 MG CAP PO SCH (17:47)
--- NOTE | 2023-07-12 17:18 | Hospitalist Progress Note ---
Date of Service July 12, 2023 Assessment & Plan (1) Acute on chronic respiratory failure with hypoxia and hypercapnia: (2) Acute UTI (urinary tract infection): (3) Obstructive sleep apnea: (4) Diastolic CHF: (5) Hypothyroidism: (6) History of pulmonary embolus (PE): (7) DMII (diabetes mellitus, type 2): (8) Elevated serum creatinine: (9) Paroxysmal A-fib: (10) GERD (gastroesophageal reflux disease): (11) Elevated troponin: Plan Acute on chronic respiratory failure with hypoxia and hypercapnia -Acute on chronic hypoxic/hypercapnic respiratory failure likely secondary to metabolic encephalopathy from urosepsis in setting of uncontrolled KENAN/OHS. Admitted in 01/2022 for similar presentation ultimately requiring intubation -Noted respiratory acidosis w/ metabolic alkalosis -Repeat ABG in AM demonstrating mild improvement in acidosis, pH 7.31 to 7.34, pCO2 unchanged at 77 -Started on BIPAP in ER- 29/10, FiO2 40% on admission, gradual improvement in settings noted over day -Low suspicion for active pulmonary infection at present- CXR demonstrating cardiomegaly and vascular congestion but no PNA -Improvement in hemodynamics, respiratory status and mental status noted -Family notes patient often removes her Trelegy at home but mentation impr oves when she complies with it -Goal to return to [facility] tomorrow Acute UTI (urinary tract infection) -Possible diagnosis with nitrites and LE positive though unable to assess if pt has had urinary symptoms -Urine culture grew pansensitive klebsiella. Will switch from Ceftriaxone to Cefdinir to finish course of abx Obstructive sleep apnea Must wear BiPAP at night or when sedated Diastolic CHF -Noted history of HFpEF though not in acute exacerbation -CXR- cardiomegaly and pulmonary vascular congestion w/o pulmonary edema -S/p Lasix 40 mg IV in ER -Continue daily Lasix, dose decreased to 20 mg IV -Last TTE 02/2022- EF 60-65% -Monitor BMP, volume status Hypothyroidism -TSH wnl -Continue on levothyroxine when able to safely swallow History of pulmonary embolus (PE) -Continue warfarin when able to safely swallow, INR therapeutic on admission DMII (diabetes mellitus, type 2) -HbA1C 9.3% in 12/2022 -Pharmacy consulted on admission -ALEIDA Dominguez in hospital Elevated serum creatinine -Cr 1.7 on admission, baseline appears 1.1-1.3 -CIERA likely from urosepsis/dehydration -S/p Lasix 40 mg IV in ER -Cr improving -Will continue daily Lasix diuresis for now at low dose- 20 mg IV daily. Discontinue once Cr increases Paroxysmal A-fib -Currently in NSR -Not on any rate control agents per home medications -Anticoagulated with warfarin- INR therapeutic range -Telemetry monitoring GERD (gastroesophageal reflux disease) -Continue famotidine IV Elevated troponin -Troponin 28 -> 29 on admission -Likely type 2 [place]/demand from respiratory failure + urosepsis -Will stop trending Plan VTE Prophylaxis - INR therapeutic with warfarin Diet - heart healthy, fluid restriction Disposition - med tele Admission and Anticipated Discharge Date Admission Date: July 09, 2023 Supervising Physician Co-Signing Physician Notes Attending attestation I personally examined the patient and verified all marquez points of history and exam, discussed case, and agree with decision making with Dr Tyson No new issuesjust awaiting insurance approvals, return to [facility] vitals noted nad heent nc at mmm breathing unlabored no accessory muscles good effort skin no rashes no pallor or icterus Acute on chronic hypoxic respiratory failure with hypercapnia - seems to have improved. reportedly removes trelogy often. Acute UTI - crane S klebsiella KENAN - BIPAP while asleep Case management working [facility] otherwise as above Subjective Patient seen and examined at bedside. No acute events reported overnight. Patient states she is eager to go home/go back to [facility]. She denies any concerns or complaints at this time. Review of Systems Review of Systems: As per above Physical Exam Constitutional: WD/WN, vitals as above Eyes: + anicteric sclerae; no conjunctival abn ormality ENMT: Ears: no external ear abnormality Nose: no external nose abnormality Respiratory: normal respiratory effort, lungs clear to auscultation Nasal cannula oxygen in place Cardiovascular: Rate/Rhythm: regular rate and regular rhythm Gastrointestinal (Abdomen): normal bowel sounds, soft, nontender, no hepatosplenomegaly Skin: no rashes, warm and dry Psychiatric: Some confusion, oriented to place and self Results & Data Results & Data Vital Signs (Past 12 Hours) Vital Signs Temp Pulse Resp BP BP Pulse Ox O2 Del Method 07/12/23 15:27 37.0 C 60 16 129/73 96 Nasal Cannula 07/12/23 10:58 36.5 C 73 14 132/52 L 95 Nasal Cannula 07/12/23 10:00 Nasal Cannula 07/12/23 07:00 36.6 C 62 14 122/81 98 BiPAP O2 Flow Rate 07/12/23 15:27 3 07/12/23 10:58 3 07/12/23 10:00 3 07/12/23 07:00 Resident Activity Tracking Resident Involvement: Resident Care Provided Care Provided: Adult Hospital Medicine
[2023-07-12] MEDS: LANTUS PER UNIT CHARGE SC ONE (17:42)
--- NOTE | 2023-07-12 20:02 | Billing Data ---
Date of Service July 12, 2023 Coding Level of Care Code 87478 SUB INP/OBS CARE
[2023-07-13] MEDS: FUROSEMIDE 40 MG TAB PO SCH (09:45)
--- NOTE | 2023-07-13 10:40 | Pharmacy Report ---
Pharmacy Glycemic Short Note 2 - Date of Service July 13, 2023 - Glycemic Short BSG Results (Last 24 hours): 07/12/23 07/12/23 07/12/23 11:26 16:30 21:44 POC Glucose 229 H 153 H 191 H 07/13/23 07:17 POC Glucose 154 H OUTPATIENT ANTIDIABETIC REGIMEN: * Lantus 60 units SC HS * Novolog 15 units TID + SSI * Trulicity 1.5 mg SC weekly HbA1c = 8.8% ASSESSMENT: 07/13 * BSGs remain elevated, ranging 126-229 mg/dL yesterday * Received 77 units of insulin (30 units of basal and 47 units of prandial/correctional bolus) * Fasting BSG of 154 mg/dL this morning * Will increase basal tighten AM Novolog parameters 07/11 * Patient received total of 34 units of insulin yesterday, of which 20 units were basal * Fasting BSG 170 mg/dL - changed from NPO to diet at dinner last evening. Will increase basal to 30 units today as diet continued. Still limited PO intake today. May need to further increase basal tomorrow closer to home dose 07/10 * 77 y/o F admitted with AMS and acute respiratory failure last night. She has history of Type 2 diabetes and stage 3 CKD. * One third of home basal dose (20 units) given last night. Novolog started based on moderate stress. * Fasting BSG = 102 mg/dl today. Continued with same basal dose. * Currently patient is NPO. PLAN FOR INPATIENT GLYCEMIC CONTROL: * Basal insulin * Lantus 35 units SC HS * Bolus insulin * NovoLog per scale ACHS or Q6hrs while NPO * Goal Range: Low 110 mg/dL - High 140 mg/dL * Correction Factor: 12 mg/dL/unit * Nutritional / Prandial insulin per carb ratio of 1 unit per 3 grams CHO consumed w/ breakfast, 1 unit per 4 grams CHO consumed w/ lunch, dinner, HS
--- NOTE | 2023-07-13 12:30 | Discharge Summary ---
Date of Service July 13, 2023 Admission HPI Per Admitting Provider Patricia Don is a 77 year old female who presents to the ER from [facility] with shortness of breath, hypoxia and decreased responsiveness. Reportedly she had been on BiPAP all morning but her oxygen saturations then dropped to 69% without improvement. Unable to get any history from the patient. She has had prior hospitalization for acute on chronic hypoxic hypercapnic respiratory failure requiring intubation related to pneumonia and diastolic CHF. Notable history of non-compliance with BiPAP, echos etc... She remains full resuscitation just as prior hospitalizations per [facility] documentation. Admission Exam Per Admitting Provider Constitutional: well developed and + morbidly obese; + not well nourished and no acute distress Eyes: PERRL, conjunctivae normal, anicteric sclerae ENMT: external ear and nose normal, oropharynx normal Respiratory: + labored breathing and + uses accessory muscles; expiratory phase not prolonged Auscultation: + diminished lung sounds (throughout); no crackles and no wheezes Cardiovascular: Rate/Rhythm: regular rate and regular rhythm Heart Sounds: no murmur Extremities: + pedal edema (1+ b/l equal) Gastrointestinal (Abdomen): Inspection/Auscultation: abdomen normal to inspection (no areas of cellulitis noted under skin folds or on abdomen) Percussion/Palpation: abdomen soft; abdomen nontender Skin: dry scaly rash mostly on back without any areas of cellulitis Neurologic: moves all extremities (upper extremities only), awake (to voice) and + confused (following one step commands (gripping fingers)) Psychiatric: A+Ox3, euthymic affect Principal Diagnosis respiratory failure Discharge Exam Constitutional WD/WN, vitals as above Eyes + anicteric sclerae; no conjunctival abnormality ENMT Ears: no external ear abnormality Nose: no external nose abnormality Respiratory normal respiratory effort, lungs clear to auscultation Nasal cannula oxygen in place Cardiovascular Rate/Rhythm: regular rate and regular rhythm +1 edema of bilateral lower extremities Gastrointestinal (Abdomen) normal bowel sounds, soft, nontender, no hepatosplenomegaly Skin no rashes, warm and dry Psychiatric Oriented to self and place, some intermittent confusion Discharge Data Allergies Allergy/AdvReac Type Severity Reaction Status Date / Time No Known Allergies Allergy Mild Verified 07/09/23 16:16 Consultations 07/09/23 17:26 ED Decision to Admit Stat 07/10/23 08:43 Consult Knowledge Management Advisor Routine Procedures Performed Chest X-Ray 07/09/23 15:39 SINGLE VIEW CHEST CLINICAL HISTORY: Sepsis. FINDINGS: 2 AP, portable, upright chest radiographs are compared to study dated 06/08/2022. The examination is degraded by portable technique and patient rotation. The patient is status post midline sternotomy. The heart is enlarged and atherosclerotic calcification of the thoracic aorta. The pulmonary vasculature is known congestive. Chronic interstitial thickening is similar to previous. There is bibasilar scarring/atelectasis. The lungs and pleural spaces are otherwise clear. No pneumothorax is seen. The skeletal structures are osteopenic. The bony thorax is grossly intact. IMPRESSION: Cardiomegaly with no acute cardiopulmonary abnormality identified. ACT 112: Negative or not required by law. Electronically signed by: Glenn Hudson M.D. 07/09/2023 7:18 PM Hospital Course (1) Acute on chronic respiratory failure with hypoxia and hypercapnia: (2) Acute UTI (urinary tract infection): (3) Obstructive sleep apnea: (4) Diastolic CHF: (5) Hypothyroidism: (6) History of pulmonary embolus (PE): (7) DMII (diabetes mellitus, type 2): (8) Elevated serum creatinine: (9) Paroxysmal A-fib: (10) GERD (gastroesophageal reflux disease): (11) Elevated troponin: Plan Acute on chronic respiratory failure with hypoxia and hypercapnia -Acute on chronic hypoxic/hypercapnic respiratory failure likely secondary to metabolic encephalopathy from urosepsis in setting of uncontrolled KENAN/OHS. Admitted in 01/2022 for similar presentation ultimately requiring intubation. Noted respiratory acidosis w/ metabolic alkalosis -Started on BIPAP in ER- 16/, FiO2 40% on admission, gradual improvement in settings noted over day -Improvement in hemodynamics, respiratory status and mental status noted after overnight use with Trelegy. -Family notes patient often removes her Trelegy at home but mentation improves when she complies with it -Patient returned to baseline oxygen requirement with 2-3L NC during day at time of discharge Acute UTI (urinary tract infection) -Possible diagnosis with nitrites and LE positive though unable to assess if pt has had urinary symptoms -Urine culture grew pansensitive klebsiella. Was switched from Ceftriaxone to Cefdinir to finish course of antibiotics, patient will be discharged on 3 additional days of Cefdinir to complete 7 day course of antibiotics. Obstructive sleep apnea Must wear BiPAP at night or when sedated Diastolic CHF -Noted history of HFpEF though not in acute exacerbation -CXR- cardiomegaly and pulmonary vascular congestion w/o pulmonary edema -Continue daily Lasix at reduced dosing of 40mg daily at time of discharge Hypothyroidism -TSH wnl -Continue on home levothyroxine History of pulmonary embolus (PE) -Continue warfarin with home dosing, INR therapeutic on admission DMII (diabetes mellitus, type 2) -HbA1C 9.3% in 12/2022 -While admitted, insulin regimen is as below: * Basal insulin * Lantus 35 units SC HS * Bolus insulin * NovoLog per scale ACHS or Q6hrs while NPO * Goal Range: Low 110 mg/dL - High 140 mg/dL * Correction Factor: 12 mg/dL/unit * Nutritional / Prandial insulin per carb ratio of 1 unit per 3 grams CHO consumed w/ breakfast, 1 unit per 4 grams CHO consumed w/ lunch, dinner, HS -As home medication (Trulicity) is resumed, her insulin regimen may need further adjustments -Note: patient's home dose of Lantus is documented at 60 units, but patient has received 35 units during admission. Would recommend starting at 35 units nightly of Lantus and adjusting based on blood sugars. Elevated serum creatinine -Cr 1.7 on admission, baseline appears 1.1-1.3 -CIERA likely from urosepsis/dehydration -Resumed home Lasix at reduced dosing (40mg daily) Paroxysmal A-fib -Not on any rate control agents per home medications -Anticoagulated with warfarin- INR therapeutic range -Monitored on telemetry during admission GERD (gastroesophageal reflux disease) -Continue famotidine Elevated troponin -Troponin 28 -> 29 on admission -Likely type 2 SD/demand from respiratory failure + urosepsis, was trended to peak Total Time Total Time Spent Total Time Spent (In Minutes): <30 Discharge Plan Discharge Items Patient Disposition: Transfer Half-Way Fac Reason For Visit: ACUTE ON CHRONIC HYPOIC HYPERCAPNIC RESPIRATORY FA Discharge Diagnosis: Respiratory Failure Activity: Per Instructions section Non-emergency contact: Primary Care Provider Call non-emergency contact if: your symptoms worsen Follow-up/Referrals: [facility] [Primary Care Provider] - Diet: Carb Consistent or DM2 and Heart Healthy Addtl Attending Provider Instructions: Acute on chronic respiratory failure with hypoxia and hypercapnia -Acute on chronic hypoxic/hypercapnic respiratory failure likely secondary to metabolic encephalopathy from urosepsis in setting of uncontrolled KENAN/OHS. Admitted in 01/2022 for similar presentation ultimately requiring intubation. Noted respiratory acidosis w/ metabolic alkalosis -Started on BIPAP in ER- 29/10, FiO2 40% on admission, gradual improvement in settings noted over day -Improvement in hemodynamics, respiratory status and mental status noted after overnight use with Trelegy. -Family notes patient often removes her Trelegy at home but mentation improves when she complies with it -Patient returned to baseline oxygen requirement with 2-3L NC during day at time of discharge Acute UTI (urinary tract infection) -Possible diagnosis with nitrites and LE positive though unable to assess if pt has had urinary symptoms -Urine culture grew pansensitive klebsiella. Was switched from Ceftriaxone to Cefdinir to finish course of antibiotics, patient will be discharged on 3 additional days of Cefdinir to complete 7 day course of antibiotics. Obstructive sleep apnea Must wear BiPAP at night or when sedated Diastolic CHF -Noted history of HFpEF though not in acute exacerbation -CXR- cardiomegaly and pulmonary vascular congestion w/o pulmonary edema -S/p Lasix 40 mg IV in ER -Continue daily Lasix at reduced dosing of 40mg daily at time of discharge -Last TTE 02/2022- EF 60-65% Hypothyroidism -TSH wnl -Continue on home levothyroxine History of pulmonary embolus (PE) -Continue warfarin with home dosing, INR therapeutic on admission DMII (diabetes mellitus, type 2) -HbA1C 9.3% in 12/2022 -While admitted, insulin regimen is as below: * Basal insulin * Lantus 35 units SC HS * Bolus insulin * NovoLog per scale ACHS or Q6hrs while NPO * Goal Range: Low 110 mg/dL - High 140 mg/dL * Correction Factor: 12 mg/dL/unit * Nutritional / Prandial insulin per carb ratio of 1 unit per 3 grams CHO consumed w/ breakfast, 1 unit per 4 grams CHO consumed w/ lunch, dinner, HS -As home medication (Trulicity) is resumed, her insulin regimen may need further adjustments -Note: patient's home dose of Lantus is documented at 60 units, but patient has received 35 units during admission. Would recommend starting at 35 units nightly of Lantus and adjusting based on blood sugars. Elevated serum creatinine -Cr 1.7 on admission, baseline appears 1.1-1.3 -CIERA likely from urosepsis/dehydration -Resumed home Lasix at reduced dosing (40mg daily) Paroxysmal A-fib -Not on any rate control agents per home medications -Anticoagulated with warfarin- INR therapeutic range -Monitored on telemetry during admission GERD (gastroesophageal reflux disease) -Continue famotidine Elevated troponin -Troponin 28 -> 29 on admission -Likely type 2 SD/demand from respiratory failure + urosepsis, was trended to peak Pending Studies at Discharge: No Stand-Alone Forms: My [facility] Skilled Items Patient informed of condition?: Yes DNR: No Discharge Level of Care: Skilled Communicable Disease: No Discharge Prognosis: Stable Lines: None Urinary Catheter: Yes Medications and DC Order Prescriptions: New furosemide 40 mg Tablet 40 mg PO QAM Qty: 30 0RF cefdinir 300 mg Capsule 300 mg PO BID 3 Days Qty: 6 0RF Continued sennosides 8.6 mg Tablet 17.2 mg PO DAILY acetaminophen [Tylenol] 325 mg Tablet 650 mg PO Q6 PRN (Reason: Fever Or Pain) atorvastatin 20 mg tablet 20 mg PO HS donepezil [Aricept] 5 mg Tablet 5 mg PO DAILY ketoconazole 2 % shampoo 1 applic TOPICAL 2XWK Rx Instructions: Q TUES & FRI in pm. omega-3 fatty acids 1,000 mg Capsule 1,000 mg PO BIDM olanzapine 2.5 mg Tablet 2.5 mg PO TIDM famotidine 20 mg tablet 20 mg PO BIDM cyanocobalamin (vitamin B-12) 500 mcg Tablet 1,000 mcg PO DAILY insulin aspart U-100 [Novolog U-100 Insulin aspart] 100 unit/mL solution 0 unit subcut TIDM PRN (Reason: .per sliding scale) Rx Instructions: if 350-400=8units, 401-450= 12 units, 451-500=16units, >500 give 18 units & recheck BSG in 2 hrs. insulin aspart U-100 [Novolog U-100 Insulin aspart] 100 unit/mL solution 15 unit subcut TIDM Rx Instructions: Hold if eaten <50% ferrous sulfate 325 mg (65 mg iron) Tablet 325 mg PO DAILY melatonin 5 mg Tablet 5 mg PO HS menthol-zinc oxide [Calmoseptine] 0.44-20.6 % Ointment 1 applic TOPICAL AMPM Rx Instructions: APPLY TO BILATERAL BUTTOCKS/UPPER THIGH RASHY/OPEN AREAS. Clay Cough Drops 7.5 mg Lozenge 7 mg PO DIRECTED PRN (Reason: Cough) levothyroxine 50 mcg Tablet 50 mcg PO DAILYBB clotrimazole-betamethasone 1-0.05 % cream 1 applic TOPICAL BID Rx Instructions: APPLY UNDER BREASTS, GROIN AREA/ ABD FOLDS/LEFT THIGH RASH. warfarin 2 mg Tablet 2 mg PO HS Rx Instructions: TOTAL DOSE 7 MG--TAKES WITH 5 MG TAB. PER [facility]. warfarin 5 mg tablet 5 mg PO HS Rx Instructions: TOTAL DOSE 7 MG--TAKES WITH 2 MG TAB. PER [facility] [place] Greaseless 15-10 % Cream 1 applic TOPICAL QID Rx Instructions: BILATERAL SHOULDER PAIN diclofenac sodium [Voltaren] 1 % Gel 4 g TOPICAL QID Rx Instructions: APPLY TO BILATERAL KNEES Women's Multivitamin 18 mg iron-400 mcg-500 mg Tablet 1 tab PO DAILY Trulicity 1.5 mg/0.5 mL Pen Injector 1.5 mg SUBCUT WK Rx Instructions: WEDNESDAYS Changed insulin glargine [Lantus U-100 Insulin] 100 unit/mL solution 35 unit SUBCUT HS Qty: 10 0RF Discontinued furosemide 40 mg tablet 40 mg PO BIDM Discharge Orders: Discharge Order (Routine); Ordered 07/13/23 Ordered By: Lilian Tyson Admission Data Admit Date/Time: 07/09/23 18:17 Attending Provider: Yash Clemente Admit Provider: Dixon Huerta Primary Care Provider: [facility] Other Providers: Dixon Huerta; Hay Shepherd Supervising Physician Co-Signing Physician Notes Attending attestation I personally examined the patient and verified all marquez points of history and exam, discussed case, and agree with decision making with Dr Tyson No new issues For return to [facility] today vitals noted nad heent nc at mmm breathing unlabored no accessory muscles good effort skin no rashes no pallor or icterus Acute on chronic hypoxic respiratory failure with hypercapnia - seems to have improved. reportedly removes trelogy often. Acute UTI - crane S klebsiella KENAN - BIPAP while asleep otherwise as above
[2023-07-13] MEDS: INSULIN ASPART PER UNIT CHARGE SC SCH (12:54)
--- NOTE | 2023-07-13 13:37 | Billing Data ---
Date of Service July 13, 2023 Coding Level of Care Code 54066 IN/OBS DISCH 30 MIN/LESS
[2023-07-13] MEDS ORDERED: LANTUS PER UNIT CHARGE SC SCH (21:00)
[2023-07-14] MEDS ORDERED: INSULIN ASPART PER UNIT CHARGE SC SCH (07:30)
== END 2023-07-13 14:57 | DRG 189 ==
LOC: ED 15:34 → SUATTDRO 18:17 → 2S 18:17 → 3W 07-11 21:18

== ENCOUNTER 2023-10-29 01:19 | Inpatient (IN) ==
[2023-10-29] MEDS: ALBUT/IPRATROP 3MG/0.5MG NEB 3 ML VIAL INH STA (01:46)
[2023-10-29 01:50] LABS: Basophils # (auto) 0.04 K/uL (0.00-0.20); Basophils % (auto) 0.5 %; Eosinophils # (auto) 0.05 K/uL (0.00-0.50); Eosinophils % (auto) 0.6 %; Hematocrit (blood only) 37.6 % (37.0-47.0); Hemoglobin 11.2 g/dl (12.0-16.0); Immature Granulocytes # (auto) 0.02 K/uL (0.01-0.20); Immature Granulocytes % (auto) 0.2 %; Lymphocytes % (auto) 18.8 %; Mean Corpuscular Hgb Conc 29.8 g/dL (32.0-36.0); Mean Platelet Volume 10.8 fL (9.4-12.4); Monocytes # (auto) 0.52 K/uL (0.11-0.59); Monocytes % (auto) 6.1 %; Neutrophils % (auto) 73.8 %; Platelet Count 222 K/uL (130-400); RDW Coefficient of Variation 16.6 % (11.5-14.5); RDW Standard Deviation 56.7 fL (36.4-46.3); White Blood Count 8.53 K/ul (4.8-10.8)
[2023-10-29 01:51] LABS: iSTAT Creatinine 1.5 mg/dl (0.6-1.3); iSTAT Hemoglobin 11.9 g/dl (12.0-16.0); iSTAT Ionized Calcium 1.18 mmol/l (1.12-1.32); iSTAT Potassium 4.7 mmol/L (3.3-5.0)
[2023-10-29 01:58] LABS: iSTAT Arterial Blood Gas HCO3 34 meg/L (19-24); iSTAT Arterial Blood Gas pCO2 68 mmHg (35-46); iSTAT Arterial Blood Gas pH 7.31 (7.35-7.45); iSTAT Arterial Blood Gas pO2 186 mmHg (80-95); iSTAT Carbon Dioxide 36 mmol/L (24-31); iSTAT Hematocrit 35 % (37-47); iSTAT Hemoglobin 11.9 g/dl (12.0-16.0); iSTAT Potassium 4.7 mmol/L (3.3-5.0); iSTAT Sodium 143 mmol/L (135-144)
[2023-10-29 02:07] LABS: Albumin Globulin Ratio 0.9 (0.9-2); Albumin Level 3.6 gm/dl (3.4-5.0); BUN Creatinine Ratio 23.6 (10-20); Bilirubin,Total 0.5 mg/dl (0.2-1.0); Calcium 9.3 mg/dl (8.6-10.3); Creatinine Clr Calc Pharmacy 43.1 ml/min; Est GFR (African American) 39.9 ml/min; Est GFR (Non-African American) 34.5 ml/min; Magnesium 1.5 mg/dl (1.7-2.4); Potassium 4.8 mmol/L (3.5-5.1); Total Protein 7.6 gm/dl (6.0-8.3)
[2023-10-29 02:15] LABS: Troponin I High Sensitivity 86.7 pg/ml (0-14)
[2023-10-29] MEDS: MAGNESIUM SULFATE / D5W 1 GM/100 ML BAG IV ONE (02:21)
[2023-10-29 02:36] LABS: INR 1.6 (0.9-1.1); Partial Thromboplastin Time 28 Seconds (21-31); Prothrombin Time 16.2 Seconds (9.0-12.0)
[2023-10-29 02:44] LABS: Adenovirus PCR Not Detected (NotDetected); Bordetella parapertussis PCR Not Detected (NotDetected); Bordetella pertussis PCR Not Detected (NotDetected); Chlamydia pneumoniae PCR Not Detected (NotDetected); Coronavirus 229E PCR Not Detected (NotDetected); Coronavirus CoV-2 (COVID19)PCR Not Detected (NotDetected); Coronavirus HKU1 PCR Not Detected (NotDetected); Coronavirus NL63 PCR Not Detected (NotDetected); Coronavirus OC43PCR Not Detected (NotDetected); Human Metapneumovirus PCR Not Detected (NotDetected); Influenza A PCR Not Detected (NotDetected); Influenza B PCR Not Detected (NotDetected); Mycoplasma pneumoniae PCR Not Detected (NotDetected); Parainfluenza Virus 1 PCR Not Detected (NotDetected); Parainfluenza Virus 2 PCR Not Detected (NotDetected); Parainfluenza Virus 3 PCR Not Detected (NotDetected); Parainfluenza Virus 4 PCR Not Detected (NotDetected); Respiratory Syncytial VirusPCR Not Detected (NotDetected); Rhinovirus/Enterovirus PCR Not Detected (NotDetected)
[2023-10-29] MEDS: ALBUT/IPRATROP 3MG/0.5MG NEB 3 ML VIAL NEB STA (03:31)
--- NOTE | 2023-10-29 03:34 | Emergency Department Note ---
Impression & Plan Acute respiratory failure with hypoxia and hypercarbia, Second degree heart block, Bradycardia ED Provider Note NAME: JOHAN PARTIDA AGE: 77 SEX: Female INFORMANT: Patient and EMS ED PROVIDER(S): Bucky Dudley MD CHIEF COMPLAINT: Respiratory distress PLAN: Disposition: Admitted Outpatient prescription management: none Referral: None MEDICAL DECISION MAKING: Patient present because of acute respiratory distress. She responded well to supplemental oxygen via nonrebreather by EMS. She states she was feeling better with that. She did have some increased work of breathing. I did do an expedited record review. Patient does have a history of hypoxic and hypercarbic respiratory failure. ECG was performed. It appeared that she was in a high degree AV block that seems to be most consistent with a second-degree. She was started on BiPAP and a DuoNeb. Her heart rate did improve. Blood pressure remained stable. She was feeling much better with the BiPAP and respiratory treatment. A blood gas was performed. She had a CO2 of 77. BiPAP was continued. Due to the profound bradycardia I did place a consult with Dr. Short of cardiology. Patient's chemistry panel was unremarkable except for a mildly low magnesium. This was repleted. I discussed the case with Dr. Short and he was concerned for the high degree AV block. As the patient was tolerating this he felt that admission to the ICU and prompt cardiology consultation was appropriate. He suspect the patient will likely need pacing in the near future. Consultation was made with Dr. Meek Elliott of the [facility] service. Patient was evaluated in the ER for further management. Patient was given a second nebulizer treatment. Patient's heart rate stayed in the high 30s even with the second nebulizer treatment. She was still feeling better and tolerating the BiPAP. Repeat ABG was done and her O2 was 76 on 30% and her CO2 did drop down to 66. Internal medicine did admit the patient to the ICU. I refer you to the EMR for further details. Care/management discussed with: manager professional development Level of care consideration(s): After review of the information above and other included data, I feel the patient requires escalation of care to admission to the ICU Triage Nursing notes: reviewed and agree them. Vital Signs: reviewed and remarkable for bradycardia Additional History obtained from: EMS. Patient did not receive any medication prehospital. Chronic Medical/Social Conditions affecting care: COPD Prior/ Outside/ External records reviewed: H&P from the correction reviewed. Patient has a history of hypercarbic respiratory failure. Patient has history of COPD. Differential Diagnosis: Reactive airway disease, pneumonia, pneumothorax, COPD, CHF, infections, cardiac ischemia, pulmonary embolism, musculoskeletal, gastrointestinal, as well as other pathologies. Diagnostics, independently interpreted by me: ECG: Twelve-lead ECG reveals a sinus rhythm with second-degree AV block at [address] elevation or depression. Cardiac Monitoring: Cardiac monitoring ordered by me: The patient was placed on continuous cardiac monitoring and observed. It revealed a sinus bradycardia with second-degree block at 35 bpm. Medical decision rules: none Imaging studies: Chest x-ray reveals hypoventilation with cardiomegaly. Mild pulmonary vascular congestion. HPI: 77 year old Female arrives for evaluation of respiratory distress. Patient does wear a CPAP/BiPAP at her nursing facility. She was noted to have removed it this evening. Nursing staff noted her sats were in the 70s. EMS was summoned. EMS did place the patient on a nonrebreather and her O2 saturations did increase to the high 90s. Patient was feeling better with the oxygen. EMS also noted the patient was bradycardic. Patient was not given any medication prehospital. Patient denies any pain. Pt denies LOC, headache, fevers, chills, neck pain, chest pain, nausea, vomiting, abdominal pain, back pain, urinary symptoms,or other complaints. PAST MEDICAL HISTORY: See Below, COPD PAST SURGICAL HISTORY: See Below, SOCIAL HISTORY: See Below, retired HOME MEDICATIONS: See Below ALLERGIES: See Below VITALS: See Below PHYSICAL EXAMINATION: GENERAL: Awake, alert, mildly dyspneic-appearing, in no distress HENT: Normocephalic, atraumatic. Oropharynx unremarkable. EYES: Normal conjunctiva. Sclera non-icteric. NECK: Inspection normal. Non-tender. Supple. No nuchal rigidity. FROM. No masses. RESPIRATORY: Decreased breath sounds bilaterally. No wheezes. No rales. Increased respiratory effort. CARDIAC: Bradycardic rate. Irregular rhythm. No murmurs. No rubs. Extremities warm and well perfused. Pulses equal. No JVD. GI: Soft, non-distended. No tenderness to palpation. No rebound or guarding. No masses. RECTAL: Deferred. MUSCULOSKELETAL: Atraumatic. Chest examination reveals no tenderness. The back is symmetrical on inspection without obvious abnormality. There is no CVA tenderness to palpation. No joint edema. LOWER EXTREMITIES: Calves are equal size bilaterally and non-tender. 1+ edema. No discoloration. NEURO: Normal sensorium. No sensory or motor deficits noted. SKIN: No rash or jaundice noted. PROCEDURES: none CRITICAL CARE: I have personally spent greater than 75 minutes of critical care time in the direct management of this patient. This includes bedside care, interpretation of diagnostic studies, and testing, discussion with consultants, patient, and other required patient management activities. These minutes are in excess of all separately billable procedures. OBSERVATION NOTE: none Past Med/Surg History Problem List (Updated 10/29/23 @ 06:48 by Meek Elliott MD) Acute kidney injury superimposed on CKD Admitted to intensive care unit Bradycardia (Acute) Second degree heart block (Acute) Acute respiratory failure with hypoxia and hypercarbia (Acute) Atrial fibrillation Obstructive sleep apnea Elevated serum creatinine Acute on chronic respiratory failure with hypoxia and hypercapnia Acute UTI (urinary tract infection) (Acute) Elevated troponin I level (Acute) Respiratory failure (Acute) Hypothyroidism Respiratory failure (Acute) Dementia Mobitz type 1 second degree atrioventricular block History of duodenal ulcer History of pulmonary embolus (PE) Encephalopathy Delirium DMII (diabetes mellitus, type 2) Chronic kidney disease (CKD), stage III (moderate) Anemia Hypomagnesemia Current use of intermediate anticoagulation DVT prophylaxis Morbid obesity Bilateral lower leg cellulitis Weakness (Acute) Cellulitis (Acute) Failure of outpatient treatment (Acute) Pedal edema (Acute) Anemia (Acute) Foot ulcer, right Encounter for pre-operative examination Pulmonary embolism (Acute) Acute and chronic respiratory failure (Acute) Sepsis (Acute) Morbid obesity Anemia GI bleed Diabetes mellitus with insulin therapy Sepsis Pulmonary embolism Generalized weakness (Acute) Hypoxia (Acute) CIERA (acute kidney injury) (Acute) Elevated troponin (Acute) Hypomagnesemia (Acute) Dehydration (Acute) GERD (gastroesophageal reflux disease) HTN (hypertension) Paroxysmal A-fib Diastolic CHF CKD (chronic kidney disease) stage 3, GFR 30-59 ml/min Aortic valve stenosis Cellulitis of left leg (Acute) Weakness (Acute) Fall (Acute) Lower extremity edema (Acute) Venous stasis ulcers of both lower extremities (Acute) COPD (chronic obstructive pulmonary disease) (Chronic) Medical History Acute on chronic respiratory failure with hypoxia and hypercapnia Hypothyroidism Acute UTI Pneumonia Paroxysmal A-fib GERD (gastroesophageal reflux disease) Morbid obesity with BMI of 50.0-59.9, adult HTN (hypertension) Obstructive sleep apnea Diastolic CHF Pulmonary HTN Aortic valve stenosis Vitamin D deficiency CKD (chronic kidney disease) stage 3, GFR 30-59 ml/min Dyslipidemia Diabetes Surgical History History of cardiac cath Hx of total knee arthroplasty S/P AVR Family History Father Cancer pancreatic cancer Social History Smoking Status: Never smoker Second Hand Exposure: No; Do You Dip or Chew Tobacco: No; Hx Alcohol Use: No Hx Substance Use: No Preferred Language: Citizen Of [place] Communication Ability: Unable Communication Ability Comment: Pt is obtunded on bipap Electron Gun Assembler Required: No Beliefs That Will Affect Care: None marital status: Current Living Situation: Assisted Current Living Situation Comment: lives at home with son Other Information That Helps Us Care for You: No Feels Safe at Home: Yes Safety Concerns: Feels Safe At This Time Assistive Devices: Wheelchair and Other Allergies Allergies Allergy/AdvReac Type Severity Reaction Status Date / Time No Known Allergies Allergy Mild Verified 10/29/23 02:43 Home Meds Home Medications Medication Instructions Recorded Confirmed acetaminophen 325 mg tablet 650 mg PO Q6 PRN Fever Or Pain 10/29/23 10/29/23 (Tylenol) atorvastatin 20 mg tablet 20 mg PO HS 10/29/23 10/29/23 camphor 4 %-methyl salicylate 30 1 applic topical QID PRN Pain 10/29/23 10/29/23 %-menthol 10 % topical cream (Bengay Ultra Strength) cyanocobalamin (vitamin B-12) 500 1,000 mcg PO DAILY 10/29/23 10/29/23 mcg tablet (Vitamin B-12) diclofenac sodium 1 % topical gel 4 g topical QID 10/29/23 10/29/23 donepezil 5 mg tablet 5 mg PO DAILY 10/29/23 10/29/23 dulaglutide 1.5 mg/0.5 mL 1.5 mg subcut .Q WED 10/29/23 10/29/23 subcutaneous pen injector (Trulicity) famotidine 20 mg tablet 20 mg PO BID 10/29/23 10/29/23 ferrous sulfate 325 mg (65 mg 325 mg PO DAILY 10/29/23 10/29/23 iron) tablet insulin aspart U-100 100 unit/mL 15 unit subcut TIDWMEAL 10/29/23 10/29/23 subcutaneous solution (Novolog U-100 Insulin aspart) insulin aspart U-100 100 unit/mL See Rx Instructions .Route .COMPLEX 10/29/23 10/29/23 subcutaneous solution (Novolog U-100 Insulin aspart) insulin glargine 100 unit/mL (3 35 unit subcut DAILY 10/29/23 10/29/23 mL) subcutaneous pen (Lantus Solostar U-100 Insulin) ketoconazole 2 % topical cream 1 applic topical .PM SHIFT TUES & 10/29/23 10/29/23 FRI levothyroxine 50 mcg tablet 50 mcg PO DAILY 10/29/23 10/29/23 melatonin 5 mg tablet 5 mg PO HS 10/29/23 10/29/23 menthol 7.5 mg lozenges (Linn 7 mg PO DIRECTED PRN Cough 10/29/23 10/29/23 Cough Drops) multivitamin 1 tab PO DAILY 10/29/23 10/29/23 olanzapine 2.5 mg tablet 2.5 mg PO TID 10/29/23 10/29/23 omega-3 fatty acids 1,000 mg 1,000 mg PO BID 10/29/23 10/29/23 capsule sennosides 8.6 mg tablet 17.2 mg PO CQWK 10/29/23 10/29/23 tobramycin 0.3 % eye drops 2 drp OPB QID 10/29/23 10/29/23 warfarin 4 mg tablet 4 mg PO HS 10/29/23 10/29/23 Results & Data (ED) Vital Signs Vital Signs - 24 hr 10/29/23 01:28 10/29/23 01:28 10/29/23 01:30 Temperature 36.7 C Temperature Source Oral Pulse Rate 34 L 33 L Pulse Rate [Apical] Pulse Rhythm Regular Pulse Rhythm [Apical] Pulse Strength [Apical] Respiratory Rate 24 Respiratory Effort / Characteristics Spontaneous Non-Labored Spontaneous Respiratory Depth Normal Normal Respiratory Pattern Regular Regular Blood Pressure [Right Arm] Blood Pressure Mean [Right Arm] Blood Pressure Position [Right Arm] Pulse Oximetry 100 Oxygen Delivery Method Non-rebreather Non-rebreather Fraction of Inspired Oxygen Sepsis Recent Fever Within 48 Hours No Sepsis New/Unexplained Change in Mental Status N/A Sepsis Action Taken by Nursing No Action Required 10/29/23 01:42 10/29/23 01:45 10/29/23 02:02 Temperature Temperature Source Pulse Rate 39 L Pulse Rate [Apical] 38 L 38 L Pulse Rhythm Pulse Rhythm [Apical] Regular Regular Pulse Strength [Apical] Normal Normal Respiratory Rate 20 31 H 22 Respiratory Effort / Characteristics Non-Labored Spontaneous Spontaneous Labored Non-Labored Spontaneous Respiratory Depth Normal Normal Normal Respiratory Pattern Regular Regular Regular Blood Pressure [Right Arm] 137/65 108/75 Blood Pressure Mean [Right Arm] 89 86 Blood Pressure Position [Right Arm] Sitting Sitting Pulse Oximetry 100 98 95 Oxygen Delivery Method Non-rebreather BiPAP Fraction of Inspired Oxygen 30 Sepsis Recent Fever Within 48 Hours Sepsis New/Unexplained Change in Mental Status Sepsis Action Taken by Nursing 10/29/23 02:30 10/29/23 03:02 10/29/23 03:31 Temperature Temperature Source Pulse Rate Pulse Rate [Apical] 33 L 34 L 31 L Pulse Rhythm Pulse Rhythm [Apical] Irregular Irregular Pulse Strength [Apical] Normal Normal Respiratory Rate 17 17 22 Respiratory Effort / Characteristics Non-Labored Spontaneous Non-Labored Spontaneous Non-Labored Spontaneous Respiratory Depth Normal Normal Respiratory Pattern Regular Regular Blood Pressure [Right Arm] 142/60 H 132/56 L Blood Pressure Mean [Right Arm] 87 81 Blood Pressure Position [Right Arm] Sitting Sitting Pulse Oximetry 93 93 93 Oxygen Delivery Method BiPAP BiPAP BiPAP Fraction of Inspired Oxygen 30 Sepsis Recent Fever Within 48 Hours Sepsis New/Unexplained Change in Mental Status Sepsis Action Taken by Nursing Laboratory Data 10/29/23 04:57 10/29/23 04:57 Lab Results 10/29/23 10/29/23 10/29/23 Range/Units 01:30 01:36 01:39 WBC 8.53 (4.8-10.8) K/ul RBC 4.00 L (4.20-5.40) M/uL Hgb 11.2 L (12.0-16.0) g/dl POC Hgb 11.9 L 11.9 L (12.0-16.0) g/dl Hct 37.6 (37.0-47.0) % POC Hct 35 L 35 L (37-47) % MCV 94.0 (80.0-100.0) fL MCH 28.0 (25.0-34.0) pg MCHC 29.8 L (32.0-36.0) g/dL RDW Std Deviation 56.7 H (36.4-46.3) fL RDW Coeff of Jacqueline 16.6 H (11.5-14.5) % Plt Count 222 (130-400) K/uL MPV 10.8 (9.4-12.4) fL Immature Gran % (Auto) 0.2 % Neut % (Auto) 73.8 % Lymph % (Auto) 18.8 % Kings % (Auto) 6.1 % Eos % (Auto) 0.6 % Baso % (Auto) 0.5 % Neut # (Auto) 6.30 (1.40-6.50) K/uL Lymph # (Auto) 1.60 (1.20-3.40) K/uL Kings # (Auto) 0.52 (0.11-0.59) K/uL Eos # (Auto) 0.05 (0.00-0.50) K/uL Baso # (Auto) 0.04 (0.00-0.20) K/uL Immature Gran # (Auto) 0.02 (0.01-0.20) K/uL PT 16.2 H (9.0-12.0) Seconds INR 1.6 H (0.9-1.1) APTT 28 (21-31) Seconds PTT Ratio 1.0 POC pH 7.31 L (7.35-7.45) POC pCO2 68 H (35-46) mmHg POC pO2 186 H (80-95) mmHg POC HCO3 34 H (19-24) ousmane/L POC Total CO2 36 H 35 H (24-31) mmol/L POC Base Excess 8.0 H (-9-1.8) ousmane/L POC ABG O2 Sat 99.0 H (90-95) % POC Sodium 143 144 (135-144) mmol/L Sodium 143 (136-145) mmol/L POC Potassium 4.7 4.7 (3.3-5.0) mmol/L Potassium 4.8 (3.5-5.1) mmol/L POC Chloride 104 (101-112) mmol/L Chloride 104 (98-107) mmol/L Carbon Dioxide 34 H (21-32) mmol/L Anion Gap 5 (3-11) POC Anion Gap 11.0 L (16-25) mmol/L POC BUN 29 H (7-18) mg/dl BUN 34 H (6-23) mg/dl Creatinine 1.44 H (0.6-1.2) mg/dl POC Creatinine 1.5 H (0.6-1.3) mg/dl Est Cr Clr Drug Dosing 43.1 ml/min Est GFR ( Amer) 39.9 ml/min Est GFR (Non-Af Amer) 34.5 ml/min BUN/Creatinine Ratio 23.6 H (10-20) Glucose 183 H (70-99(Fasting)) mg/dl POC Glucose (other) 181 H (70-99) mg/dl Calcium 9.3 (8.6-10.3) mg/dl POC Ioniz Calcium Liss 1.18 (1.12-1.32) mmol/l Magnesium 1.5 L (1.7-2.4) mg/dl Total Bilirubin 0.5 (0.2-1.0) mg/dl AST 26 (13-39) U/L ALT 49 (7-52) U/L Alkaline Phosphatase 137 H (34-104) U/L Troponin I High Sens 86.7 H* (0-14) pg/ml B-Natriuretic Peptide 464 H (0-100) pg/ml Total Protein 7.6 (6.0-8.3) gm/dl Albumin 3.6 (3.4-5.0) gm/dl Globulin 4.0 (2.5-4.0) gm/dl Albumin/Globulin Ratio 0.9 (0.9-2) Adenovirus (PCR) (NotDetected) B. pertussis DNA (PCR) (NotDetected) B.parapertussis DNA PCR (NotDetected) C. pneumoniae DNA (PCR) (NotDetected) Coronavirus OC43 (PCR) (NotDetected) Coronavirus HKU1 (PCR) (NotDetected) Coronavirus 229E (PCR) (NotDetected) SARS-CoV-2 (PCR) (NotDetected) Coronavirus NL63 (PCR) (NotDetected) Human Metapneumovir PCR (NotDetected) Influenza Type A (PCR) (NotDetected) Influenza Type B (PCR) (NotDetected) M. pneumoniae (PCR) (NotDetected) Parainfluenza 1 (PCR) (NotDetected) Parainfluenza 2 (PCR) (NotDetected) Parainfluenza 3 (PCR) (NotDetected) Parainfluenza 4 (PCR) (NotDetected) RSV (PCR) (NotDetected) Entero/Rhino (PCR) (NotDetected) 10/29/23 10/29/23 Range/Units 01:44 03:10 WBC (4.8-10.8) K/ul RBC (4.20-5.40) M/uL Hgb (12.0-16.0) g/dl POC Hgb (12.0-16.0) g/dl Hct (37.0-47.0) % POC Hct (37-47) % MCV (80.0-100.0) fL MCH (25.0-34.0) pg MCHC (32.0-36.0) g/dL RDW Std Deviation (36.4-46.3) fL RDW Coeff of Jacqueline (11.5-14.5) % Plt Count (130-400) K/uL MPV (9.4-12.4) fL Immature Gran % (Auto) % Neut % (Auto) % Lymph % (Auto) % Kings % (Auto) % Eos % (Auto) % Baso % (Auto) % Neut # (Auto) (1.40-6.50) K/uL Lymph # (Auto) (1.20-3.40) K/uL Kings # (Auto) (0.11-0.59) K/uL Eos # (Auto) (0.00-0.50) K/uL Baso # (Auto) (0.00-0.20) K/uL Immature Gran # (Auto) (0.01-0.20) K/uL PT (9.0-12.0) Seconds INR (0.9-1.1) APTT (21-31) Seconds PTT Ratio POC pH (7.35-7.45) POC pCO2 (35-46) mmHg POC pO2 (80-95) mmHg POC HCO3 (19-24) ousmane/L POC Total CO2 (24-31) mmol/L POC Base Excess (-9-1.8) ousmane/L POC ABG O2 Sat (90-95) % POC Sodium (135-144) mmol/L Sodium (136-145) mmol/L POC Potassium (3.3-5.0) mmol/L Potassium (3.5-5.1) mmol/L POC Chloride (101-112) mmol/L Chloride (98-107) mmol/L Carbon Dioxide (21-32) mmol/L Anion Gap (3-11) POC Anion Gap (16-25) mmol/L POC BUN (7-18) mg/dl BUN (6-23) mg/dl Creatinine (0.6-1.2) mg/dl POC Creatinine (0.6-1.3) mg/dl Est Cr Clr Drug Dosing ml/min Est GFR ( Amer) ml/min Est GFR (Non-Af Amer) ml/min BUN/Creatinine Ratio (10-20) Glucose (70-99(Fasting)) mg/dl POC Glucose (other) (70-99) mg/dl Calcium (8.6-10.3) mg/dl POC Ioniz Calcium Liss (1.12-1.32) mmol/l Magnesium (1.7-2.4) mg/dl Total Bilirubin (0.2-1.0) mg/dl AST (13-39) U/L ALT (7-52) U/L Alkaline Phosphatase (34-104) U/L Troponin I High Sens 110.4 H* D (0-14) pg/ml B-Natriuretic Peptide (0-100) pg/ml Total Protein (6.0-8.3) gm/dl Albumin (3.4-5.0) gm/dl Globulin (2.5-4.0) gm/dl Albumin/Globulin Ratio (0.9-2) Adenovirus (PCR) Not Detected (NotDetected) B. pertussis DNA (PCR) Not Detected (NotDetected) B.parapertussis DNA PCR Not Detected (NotDetected) C. pneumoniae DNA (PCR) Not Detected (NotDetected) Coronavirus OC43 (PCR) Not Detected (NotDetected) Coronavirus HKU1 (PCR) Not Detected (NotDetected) Coronavirus 229E (PCR) Not Detected (NotDetected) SARS-CoV-2 (PCR) Not Detected (NotDetected) Coronavirus NL63 (PCR) Not Detected (NotDetected) Human Metapneumovir PCR Not Detected (NotDetected) Influenza Type A (PCR) Not Detected (NotDetected) Influenza Type B (PCR) Not Detected (NotDetected) M. pneumoniae (PCR) Not Detected (NotDetected) Parainfluenza 1 (PCR) Not Detected (NotDetected) Parainfluenza 2 (PCR) Not Detected (NotDetected) Parainfluenza 3 (PCR) Not Detected (NotDetected) Parainfluenza 4 (PCR) Not Detected (NotDetected) RSV (PCR) Not Detected (NotDetected) Entero/Rhino (PCR) Not Detected (NotDetected) Administered Medications Albuterol (Albut/Ipratrop 3mg/0.5mg Neb 3 Ml Vial) 3 ml NEB QIDR [facility]; Protocol Stop: 11/28/23 06:59 Last Admin: 10/29/23 15:35 Dose: 3 ml Documented By: [id number] Admin: 10/29/23 11:33 Dose: 3 ml Documented By: [id number] Admin: 10/29/23 07:47 Dose: 3 ml Documented By: [id number] Pantoprazole Sodium 40 mg/ (Syringe) 10 mls @ 5 mls/min IV DAILY@1100 [facility] Stop: 11/28/23 10:59 Last Admin: 10/29/23 11:15 Dose: 5 mls/min Documented By: SANDOR Ceftriaxone Sodium (Rocephin) 2,000 mg in 50 mls @ 100 mls/hr IV Q24H [facility] Stop: 10/30/23 04:59 Last Infusion: 10/29/23 05:52 Dose: Infused Documented By: Admin: 10/29/23 05:03 Dose: 100 mls/hr Documented By: CLC Insulin Aspart (Insulin Aspart Per Unit Charge) 0 units SC Q6 [facility] Stop: 11/28/23 05:59 Last Admin: 10/29/23 12:12 Dose: Not Given Documented By: Admin: 10/29/23 06:04 Dose: Not Given Documented By: OLGA LIDIA Discontinued Medications Albuterol (Albut/Ipratrop 3mg/0.5mg Neb 3 Ml Vial) 3 ml INH NOW STA Stop: 10/29/23 01:30 Last Admin: 10/29/23 01:46 Dose: 3 ml Documented By: DIO Albuterol (Albut/Ipratrop 3mg/0.5mg Neb 3 Ml Vial) 3 ml NEB NOW STA; Protocol Stop: 10/29/23 03:15 Last Admin: 10/29/23 03:31 Dose: 3 ml Documented By: BRITNI Amlodipine Besylate (Amlodipine Besylate 5 Mg Tab) 5 mg PO NOW ONE Stop: 10/29/23 14:15 Last Admin: 10/29/23 15:01 Dose: 5 mg Documented By: SANDOR Magnesium Sulfate/Dextrose (Magnesium Sulfate / D5w) 1 gm in 100 mls @ 50 mls/hr IV ONE ONE Stop: 10/29/23 04:10 Last Infusion: 10/29/23 03:25 Dose: Infused Documented By: Admin: 10/29/23 02:21 Dose: 50 mls/hr Documented By: DIO Sodium Chloride (Nss) 1,000 mls @ 80 mls/hr IV .[id number] [facility] Stop: 10/29/23 16:47 Last Infusion: 10/29/23 13:27 Dose: Infused Documented By: Admin: 10/29/23 05:04 Dose: 80 mls/hr Documented By: OLGA LIDIA Imaging Data Radiologist's Impression: Chest X-Ray 10/29/23 01:29 XR chest 1V portable HISTORY: 77 years-old Female Dyspnea acute shortness of breath COMPARISON: 07/09/2023 TECHNIQUE: AP view of the chest FINDINGS: Cardiac silhouette is enlarged. Mild right hemidiaphragmatic elevation. Median sternotomy wires. Trace pleural effusions. Pulmonary vascular congestion with mild bibasilar densities. Bones appear grossly intact. IMPRESSION: 1. Cardiomegaly with pulmonary vascular congestion. 2. Trace pleural effusions with mild bibasilar atelectasis. ACT 112: Negative or not required by law. The above report was generated using voice recognition software. It may contain grammatical, syntax or spelling errors. Electronically signed by: Roc Corral M.D. 10/29/2023 8:05 AM Discharge Plan Visit Data Chief Complaint: Respiratory Distress Stated Complaint: Respiratory Distress, Bradycardia, Hypotension ED Provider: Bucky Dudley Discharge Problem: Acute respiratory failure with hypoxia and hypercarbia, Second degree heart block, Bradycardia Patient Disposition: Admitted As Inpatient Discharge Instructions Interventions: ED Discharge Assessment Last Done: 10/29/23 04:15
--- NOTE | 2023-10-29 03:41 | History & Physical Report ---
Date of Service October 29, 2023 Assessment & Plan (1) Admitted to intensive care unit: (2) Bradycardia: (3) Second degree heart block: (4) Acute respiratory failure with hypoxia and hypercarbia: (5) Atrial fibrillation: (6) Obstructive sleep apnea: (7) History of pulmonary embolus (PE): (8) Paroxysmal A-fib: (9) Acute kidney injury superimposed on CKD: Plan Symptomatic intermittent second-degree type II versus third-degree heart block/PAF/hypertension/diastolic CHF- Heart rate remained in the 30s-40s and systolic blood pressure maintained greater than or equal to 130s. Patient be admitted to the intensive care unit Transcutaneous pacer pads as needed overnight Cardiology Dr. Short aware, will see patient in a.m. address issues as far as transvenous pacer Patient is not on any negative inotropes Holding warfarin, for potential procedure in the a.m., with present INR subtherapeutic at 1.6 Hold starting heparin at this time, as cardiology will be here in about 4 hours, can address anticoagulation postprocedure Initial troponin 86.7 will follow-up pending Acute on chronic respiratory failure with hypoxia and hypercapnia/diastolic CHF/obesity hypoventilation syndrome- Admitted to the ICU as noted Continue BiPAP for now, and titrate downward as symptoms of Most recent echocardiogram from 03/06 with ejection fraction 60-65% and mild mitral stenosis Acute kidney injury superimposed on CKD/hypomagnesemia- Creatinine 1.44, with base 1.14 IV fluids as noted Received 2 g of magnesium sulfate IV from the ED Recheck laboratories in the a.m. Chest x-ray shows cardiomegaly, with no signs of CHF Klebsiella erogenous UTI- From urine culture on 10/18/2023 Unclear if ever treated Ceftriaxone 2 g IV daily History of Present Illness Chief Complaint: The patient presented to the emergency department by EMS when found to be in acute respiratory distress, that responded well to nonrebreather oxygen supplied. In the emergency department, she was placed on BiPAP, and given a DuoNeb, which further improved her breathing and oxygenation. EKG suggested complete heart block, and plans were made to admit the patient to the ICU for further treatment after speaking with cardiology Dr. Short. Primary Care Provider: [facility] The patient is a 77-year-old female with a past medical history including atrial fibrillation, KENAN, acute on chronic respiratory failure, UTI, hypothyroidism, Mobitz type I second-degree AV block, encephalopathy, PE, diabetes mellitus type 2, chronic use of anticoagulation with warfarin, right foot ulcer, PE, hypomagnesemia, GERD, lower extremity edema and COPD. The patient was transferred from [facility], due to acute respiratory failure and noted low oxygenation. She was initially placed on nonrebreather mask by EMS, and then placed on BiPAP upon arrival to the emergency department. EKG showed heart block, and patient remained in heart rate of 30s to 40s with systolic blood pressure maintained in the 130s. Plans admit the patient to the ICU, use transcutaneous pacer as needed, and will be seen by cardiology in the a.m. for likely transvenous pacer Allergies Allergy/AdvReac Type Severity Reaction Status Date / Time No Known Allergies Allergy Mild Verified 10/29/23 02:43 Home Medications Medication Instructions Recorded Confirmed Type acetaminophen 325 mg tablet 650 mg PO Q6 PRN Fever Or Pain 10/29/23 10/29/23 History (Tylenol) atorvastatin 20 mg tablet 20 mg PO HS 10/29/23 10/29/23 History camphor 4 %-methyl salicylate 30 1 applic topical QID PRN Pain 10/29/23 10/29/23 History %-menthol 10 % topical cream (Bengay Ultra Strength) cyanocobalamin (vitamin B-12) 500 1,000 mcg PO DAILY 10/29/23 10/29/23 History mcg tablet (Vitamin B-12) diclofenac sodium 1 % topical gel 4 g topical QID 10/29/23 10/29/23 History donepezil 5 mg tablet 5 mg PO DAILY 10/29/23 10/29/23 History dulaglutide 1.5 mg/0.5 mL 1.5 mg subcut .Q WED 10/29/23 10/29/23 History subcutaneous pen injector (Trulicity) famotidine 20 mg tablet 20 mg PO BID 10/29/23 10/29/23 History ferrous sulfate 325 mg (65 mg 325 mg PO DAILY 10/29/23 10/29/23 History iron) tablet insulin aspart U-100 100 unit/mL 15 unit subcut TIDWMEAL 10/29/23 10/29/23 History subcutaneous solution (Novolog U-100 Insulin aspart) insulin aspart U-100 100 unit/mL See Rx Instructions .Route .COMPLEX 10/29/23 10/29/23 History subcutaneous solution (Novolog U-100 Insulin aspart) insulin glargine 100 unit/mL (3 35 unit subcut DAILY 10/29/23 10/29/23 History mL) subcutaneous pen (Lantus Solostar U-100 Insulin) ketoconazole 2 % topical cream 1 applic topical .PM SHIFT TUES & 10/29/23 10/29/23 History FRI levothyroxine 50 mcg tablet 50 mcg PO DAILY 10/29/23 10/29/23 History melatonin 5 mg tablet 5 mg PO HS 10/29/23 10/29/23 History menthol 7.5 mg lozenges ([place] 7 mg PO DIRECTED PRN Cough 10/29/23 10/29/23 History Cough Drops) multivitamin 1 tab PO DAILY 10/29/23 10/29/23 History olanzapine 2.5 mg tablet 2.5 mg PO TID 10/29/23 10/29/23 History omega-3 fatty acids 1,000 mg 1,000 mg PO BID 10/29/23 10/29/23 History capsule sennosides 8.6 mg tablet 17.2 mg PO CQWK 10/29/23 10/29/23 History tobramycin 0.3 % eye drops 2 drp OPB QID 10/29/23 10/29/23 History warfarin 4 mg tablet 4 mg PO HS 10/29/23 10/29/23 History Past Med/Surg History Problem List (Updated 10/29/23 @ 06:48 by Meek Elliott MD) Acute kidney injury superimposed on CKD Admitted to intensive care unit Bradycardia (Acute) Second degree heart block (Acute) Acute respiratory failure with hypoxia and hypercarbia (Acute) Atrial fibrillation Obstructive sleep apnea Elevated serum creatinine Acute on chronic respiratory failure with hypoxia and hypercapnia Acute UTI (urinary tract infection) (Acute) Elevated troponin I level (Acute) Respiratory failure (Acute) Hypothyroidism Respiratory failure (Acute) Dementia Mobitz type 1 second degree atrioventricular block History of duodenal ulcer History of pulmonary embolus (PE) Encephalopathy Delirium DMII (diabetes mellitus, type 2) Chronic kidney disease (CKD), stage III (moderate) Anemia Hypomagnesemia Current use of fpc anticoagulation DVT prophylaxis Morbid obesity Bilateral lower leg cellulitis Weakness (Acute) Cellulitis (Acute) Failure of outpatient treatment (Acute) Pedal edema (Acute) Anemia (Acute) Foot ulcer, right Encounter for pre-operative examination Pulmonary embolism (Acute) Acute and chronic respiratory failure (Acute) Sepsis (Acute) Morbid obesity Anemia GI bleed Diabetes mellitus with insulin therapy Sepsis Pulmonary embolism Generalized weakness (Acute) Hypoxia (Acute) CIERA (acute kidney injury) (Acute) Elevated troponin (Acute) Hypomagnesemia (Acute) Dehydration (Acute) GERD (gastroesophageal reflux disease) HTN (hypertension) Paroxysmal A-fib Diastolic CHF CKD (chronic kidney disease) stage 3, GFR 30-59 ml/min Aortic valve stenosis Cellulitis of left leg (Acute) Weakness (Acute) Fall (Acute) Lower extremity edema (Acute) Venous stasis ulcers of both lower extremities (Acute) COPD (chronic obstructive pulmonary disease) (Chronic) Medical History Acute on chronic respiratory failure with hypoxia and hypercapnia Hypothyroidism Acute UTI Pneumonia Paroxysmal A-fib GERD (gastroesophageal reflux disease) Morbid obesity with BMI of 50.0-59.9, adult HTN (hypertension) Obstructive sleep apnea Diastolic CHF Pulmonary HTN Aortic valve stenosis Vitamin D deficiency CKD (chronic kidney disease) stage 3, GFR 30-59 ml/min Dyslipidemia Diabetes Surgical History History of cardiac cath Hx of total knee arthroplasty S/P AVR Family History Father Cancer pancreatic cancer Social History Smoking Status: Never smoker Second Hand Exposure: No; Do You Dip or Chew Tobacco: No; Hx Alcohol Use: No Hx Substance Use: No Preferred Language: Guyanese Communication Ability: Impaired Communication Ability Comment: Pt is obtunded on bipap [place] Support Worker Required: No Beliefs That Will Affect Care: None marital status: Current Living Situation: [facility] Current Living Situation Comment: lives at home with son Other Information That Helps Us Care for You: No Feels Safe at Home: Yes Safety Concerns: Feels Safe At This Time Assistive Devices: BiPap and Oxygen - Continuous Review of Systems Review of Systems: Limited review of this review of systems due to patient's current state of respiratory failure Physical Exam Physical Exam: The patient is awake, responsive, well developed and well nourished, n ormocephalic and atraumatic, lying in bed and in no acute distress. HEENT--PERRL, EOMI, mucous membranes and oropharynx normal Neck--supple. No JVD. No bruits. Thyroid normal, trachea midline, no arthur nopathy. Heart--bradycardic. No murmurs, rubs or gallops. Lungs--clear bilaterally, no respiratory distress, no accessory muscle use. Abdomen--normal bowel sounds and soft. Nontender. Nondistended. Morbidly obese Extremities--no cyanosis or clubbing. No edema. Dermatologic--normal skin turgor, normal color, no abnormal lymph nodes, no rash. Neurologic--cranial nerves II through XII grossly intact. Rheumatologic--limited exam Psychiatric--normal affect. Results & Data Results & Data Vital Signs (Past 12 Hours) Vital Signs Temp Pulse Pulse Resp BP Pulse Ox O2 Del Method 10/29/23 03:31 31 L 22 93 BiPAP 10/29/23 03:02 34 L 17 132/56 L 93 BiPAP 10/29/23 02:30 33 L 17 142/60 H 93 BiPAP 10/29/23 02:02 38 L 22 108/75 95 BiPAP 10/29/23 01:45 39 L 31 H 98 10/29/23 01:42 38 L 20 137/65 100 Non-rebreather 10/29/23 01:30 33 L 10/29/23 01:28 36.7 C 34 L 24 100 Non-rebreather 10/29/23 01:28 Non-rebreather FiO2 10/29/23 03:31 30 10/29/23 03:02 10/29/23 02:30 10/29/23 02:02 10/29/23 01:45 30 10/29/23 01:42 10/29/23 01:30 10/29/23 01:28 10/29/23 01:28 Laboratory Results Laboratory Results WBC 7.58 K/ul (4.8-10.8) 10/29/23 04:57 RBC 3.78 M/uL (4.20-5.40) L 10/29/23 04:57 Hgb 10.7 g/dl (12.0-16.0) L 10/29/23 04:57 POC Hgb 11.2 g/dl (12.0-16.0) L 10/29/23 03:55 Hct 35.7 % (37.0-47.0) L 10/29/23 04:57 POC Hct 33 % (37-47) L 10/29/23 03:55 MCV 94.4 fL (80.0-100.0) 10/29/23 04:57 MCH 28.3 pg (25.0-34.0) 10/29/23 04:57 MCHC 30.0 g/dL (32.0-36.0) L 10/29/23 04:57 RDW Std Deviation 57.7 fL (36.4-46.3) H 10/29/23 04:57 RDW Coeff of Jacqueline 16.6 % (11.5-14.5) H 10/29/23 04:57 Plt Count 201 K/uL (130-400) 10/29/23 04:57 MPV 10.7 fL (9.4-12.4) 10/29/23 04:57 Immature Gran % (Auto) 0.1 % 10/29/23 04:57 Neut % (Auto) 64.8 % 10/29/23 04:57 Lymph % (Auto) 25.6 % 10/29/23 04:57 [place] % (Auto) 7.5 % 10/29/23 04:57 Eos % (Auto) 1.5 % 10/29/23 04:57 Baso % (Auto) 0.5 % 10/29/23 04:57 Neut # (Auto) 4.91 K/uL (1.40-6.50) 10/29/23 04:57 Lymph # (Auto) 1.94 K/uL (1.20-3.40) 10/29/23 04:57 [place] # (Auto) 0.57 K/uL (0.11-0.59) 10/29/23 04:57 Eos # (Auto) 0.11 K/uL (0.00-0.50) 10/29/23 04:57 Baso # (Auto) 0.04 K/uL (0.00-0.20) 10/29/23 04:57 Immature Gran # (Auto) 0.01 K/uL (0.01-0.20) 10/29/23 04:57 PT 15.2 Seconds (9.0-12.0) H 10/29/23 04:57 INR 1.4 (0.9-1.1) H 10/29/23 04:57 APTT 28 Seconds (21-31) 10/29/23 01:30 PTT Ratio 1.0 10/29/23 01:30 POC pH 7.30 (7.35-7.45) L 10/29/23 03:55 POC pCO2 67 mmHg (35-46) H 10/29/23 03:55 POC pO2 76 mmHg (80-95) L 10/29/23 03:55 POC HCO3 33 ousmane/L (19-24) H 10/29/23 03:55 POC Total CO2 35 mmol/L (24-31) H 10/29/23 03:55 POC Base Excess 7.0 ousmane/L (-9-1.8) H 10/29/23 03:55 POC ABG O2 Sat 93.0 % (90-95) 10/29/23 03:55 POC Sodium 144 mmol/L (135-144) 10/29/23 03:55 Sodium 144 mmol/L (136-145) 10/29/23 04:57 POC Potassium 4.5 mmol/L (3.3-5.0) 10/29/23 03:55 Potassium 4.5 mmol/L (3.5-5.1) 10/29/23 04:57 POC Chloride 104 mmol/L (101-112) 10/29/23 01:39 Chloride 105 mmol/L (98-107) 10/29/23 04:57 Carbon Dioxide 34 mmol/L (21-32) H 10/29/23 04:57 POC Total CO2 35 mmol/L (24-31) H 10/29/23 01:39 Anion Gap 5 (3-11) 10/29/23 04:57 POC Anion Gap 11.0 mmol/L (16-25) L 10/29/23 01:39 POC BUN 29 mg/dl (7-18) H 10/29/23 01:39 BUN 33 mg/dl (6-23) H 10/29/23 04:57 Creatinine 1.41 mg/dl (0.6-1.2) H 10/29/23 04:57 POC Creatinine 1.5 mg/dl (0.6-1.3) H 10/29/23 01:39 Est Cr Clr Drug Dosing 44.6 ml/min 10/29/23 04:57 Est GFR ( Amer) 41.0 ml/min 10/29/23 04:57 Est GFR (Non-Af Amer) 35.3 ml/min 10/29/23 04:57 BUN/Creatinine Ratio 23.4 (10-20) H 10/29/23 04:57 Glucose 159 mg/dl (70-99(Fasting)) H 10/29/23 04:57 POC Glucose 140 mg/dl (70-99) H 10/29/23 05:57 POC Glucose (other) 181 mg/dl (70-99) H 10/29/23 01:39 Calcium 9.3 mg/dl (8.6-10.3) 10/29/23 04:57 POC Ioniz Calcium Liss 1.18 mmol/l (1.12-1.32) 10/29/23 01:39 Magnesium 1.5 mg/dl (1.7-2.4) L 10/29/23 01:30 Total Bilirubin 0.5 mg/dl (0.2-1.0) 10/29/23 04:57 AST 23 U/L (13-39) 10/29/23 04:57 ALT 46 U/L (7-52) 10/29/23 04:57 Alkaline Phosphatase 127 U/L (34-104) H 10/29/23 04:57 Troponin I High Sens 110.4 pg/ml (0-14) H* D 10/29/23 03:10 B-Natriuretic Peptide 464 pg/ml (0-100) H 10/29/23 01:30 Total Protein 7.3 gm/dl (6.0-8.3) 10/29/23 04:57 Albumin 3.5 gm/dl (3.4-5.0) 10/29/23 04:57 Globulin 3.8 gm/dl (2.5-4.0) 10/29/23 04:57 Albumin/Globulin Ratio 0.9 (0.9-2) 10/29/23 04:57 Urine Color Yellow 10/29/23 03:45 Urine Appearance Clear (Clear) 10/29/23 03:45 Urine pH 5.5 (4.5-7.5) 10/29/23 03:45 Ur Specific [place] 1.019 (1.000-1.030) 10/29/23 03:45 Urine Protein 1+ (Negative) H 10/29/23 03:45 Urine Glucose (UA) Negative (Negative) 10/29/23 03:45 Urine Ketones Negative (Negative) 10/29/23 03:45 Urine Blood Negative (Negative) 10/29/23 03:45 Urine Nitrite Negative (Negative) 10/29/23 03:45 Urine Bilirubin Negative (Negative) 10/29/23 03:45 Urine Urobilinogen Negative (Negative) 10/29/23 03:45 Ur Leukocyte Esterase Trace (Negative) H 10/29/23 03:45 Urine WBC (Auto) 0-5 /hpf (0-5) 10/29/23 03:45 Urine RBC (Auto) 0-2 /hpf (0-2) 10/29/23 03:45 U Hyaline Cast (Auto) 0-2 /lpf (0-2) 10/29/23 03:45 U Epithel Cells (Auto) 3-5 /hpf (0-2) H 10/29/23 03:45 Urine Bacteria (Auto) None Seen (None Seen) 10/29/23 03:45 Nasal Screen MRSA (PCR) Positive (Negative) A 10/29/23 Unknown Adenovirus (PCR) Not Detected (NotDetected) 10/29/23 01:44 B. pertussis DNA (PCR) Not Detected (NotDetected) 10/29/23 01:44 B.parapertussis DNA PCR Not Detected (NotDetected) 10/29/23 01:44 C. pneumoniae DNA (PCR) Not Detected (NotDetected) 10/29/23 01:44 Coronavirus OC43 (PCR) Not Detected (NotDetected) 10/29/23 01:44 Coronavirus HKU1 (PCR) Not Detected (NotDetected) 10/29/23 01:44 Coronavirus 229E (PCR) Not Detected (NotDetected) 10/29/23 01:44 SARS-CoV-2 (PCR) Not Detected (NotDetected) 10/29/23 01:44 Coronavirus NL63 (PCR) Not Detected (NotDetected) 10/29/23 01:44 Human Metapneumovir PCR Not Detected (NotDetected) 10/29/23 01:44 Influenza Type A (PCR) Not Detected (NotDetected) 10/29/23 01:44 Influenza Type B (PCR) Not Detected (NotDetected) 10/29/23 01:44 M. pneumoniae (PCR) Not Detected (NotDetected) 10/29/23 01:44 Parainfluenza 1 (PCR) Not Detected (NotDetected) 10/29/23 01:44 Parainfluenza 2 (PCR) Not Detected (NotDetected) 10/29/23 01:44 Parainfluenza 3 (PCR) Not Detected (NotDetected) 10/29/23 01:44 Parainfluenza 4 (PCR) Not Detected (NotDetected) 10/29/23 01:44 RSV (PCR) Not Detected (NotDetected) 10/29/23 01:44 Entero/Rhino (PCR) Not Detected (NotDetected) 10/29/23 01:44 Code Status & VTE Plan Code Status Full code VTE Prophylaxis Plan VTE Prophylaxis will be ordered: Yes PG Care Time/CCT Total # of Minutes Spent Total Time Spent with Patient: Total time spent is greater than 50% in coordination of care (as documented) at patient's floor/unit and/or counseling patient: 55 minutes Coding Level of Care Code 76640 INT INP/OBS CARE 3/75MIN Diagnoses Admitted to intensive care unit Z78.9 Bradycardia R00.1 Second degree heart block I44.1 Acute respiratory failure with hypoxia and hypercarbia J96.01; J96.02 Atrial fibrillation I48.91 Obstructive sleep apnea G47.33 History of pulmonary embolus (PE) Z86.711 Paroxysmal A-fib I48.0 Acute kidney injury superimposed on CKD N17.9; N18.9
[2023-10-29 04:08] LABS: iSTAT Arterial Blood Gas HCO3 33 meg/L (19-24); iSTAT Arterial Blood Gas pCO2 67 mmHg (35-46); iSTAT Arterial Blood Gas pO2 76 mmHg (80-95); iSTAT Carbon Dioxide 35 mmol/L (24-31); iSTAT Hematocrit 33 % (37-47); iSTAT Hemoglobin 11.2 g/dl (12.0-16.0); iSTAT Potassium 4.5 mmol/L (3.3-5.0); iSTAT Sodium 144 mmol/L (135-144)
[2023-10-29 04:16] LABS: Appearance Urine Clear (Clear); Bacteria Urine Automated None Seen (None Seen); Bilirubin Urine Negative (Negative); Blood Urine Negative (Negative); Cast Urine Automated 0-2 /lpf (0-2); Color Urine Yellow; Glucose Urine UA Negative (Negative); Ketones Urine Negative (Negative); Leukocyte Esterase Urine Trace (Negative); Nitrite Urine Negative (Negative); Protein Urine 1+ (Negative); RBC Urine Automated 0-2 /hpf (0-2); Specific Gravity Urine 1.019 (1.000-1.030); Urobilinogen Urine Negative (Negative); WBC Urine Automated 0-5 /hpf (0-5); pH Urine 5.5 (4.5-7.5)
[2023-10-29] MEDS ORDERED: GLUCOSE 10 TAB/TUBE PO PRN (04:18)
[2023-10-29] MEDS ORDERED: CARBOHYDRATES FOR HYPOGLYCEMIA PO PRN (04:18)
[2023-10-29] MEDS ORDERED: DEXTROSE 50% 50 ML SYRINGE IV PRN (04:18)
[2023-10-29] MEDS ORDERED: GLUCOSE 40% GEL 15 GM TUBE PO PRN (04:18)
[2023-10-29] MEDS ORDERED: GLUCAGON FOR INJ 1 MG VIAL SQ PRN (04:18)
[2023-10-29] MEDS ORDERED: ACETAMINOPHEN 1000 MG/100 ML IV IV PRN (04:18)
[2023-10-29] MEDS ORDERED: ALBUT/IPRATROP 3MG/0.5MG NEB 3 ML VIAL NEB PRN (04:23)
[2023-10-29] MEDS ORDERED: ACETAMINOPHEN 1,000 MG/100 ML VIAL IV PRN (04:30)
[2023-10-29] MEDS: cefTRIAXone SODIUM 2,000 MG/50 ML BAG IV SCH (05:03)
[2023-10-29] MEDS: SODIUM CHLORIDE 0.9% 1,000 ML IV SCH (05:04)
--- NOTE | 2023-10-29 05:20 | Critical Care Consultation ---
Date of Consultation October 29, 2023 Assessment & Plan (1) Second degree heart block: (2) Acute on chronic respiratory failure with hypoxia and hypercapnia: (3) Bradycardia: (4) Atrial fibrillation: (5) Hypothyroidism: (6) DMII (diabetes mellitus, type 2): (7) GERD (gastroesophageal reflux disease): (8) COPD (chronic obstructive pulmonary disease): Plan Impression: 77-year-old female with history of chronic respiratory failure, COPD, atrial fibrillation (anticoagulated on Coumadin), DM type II, hypothyroidism, diastolic heart failure, presents to the ICU with respiratory distress and found to be in second-degree heart block with bradycardia in the 30s. Neuro - Encephalopathypatient appears to be somewhat confused, which has had been consistent on previous admissions as well. [facility]. May have underlying dementia. Elevated CO2, and UTI may be contributing as well. Will monitor closely. Cardiac - Second-degree AV block with bradycardiapatient with heart rate in the 30s, currently normotensive. - No ST elevation on EKG. Mild elevation of troponin, trend for now. Of note she is anticoagulated on Coumadin - Cardiology aware, patient will likely need pacemaker in near future. Low threshold for temporary transvenous pacing - Pacer pads on patient - No beta-flores on med list. - Hold antihypertensives for now -Continuous monitoring on telemetry. Admitted to ICU Respiratory - Acute on chronic hypoxic and hypercapnic respiratory failurepatient initially presented with respiratory distress and found to be in second-degree AV block. May be cardiogenic and origin, although patient does have history of COPD, KENAN, diastolic heart failure. - Chest x-ray with cardiopulmonary congestion, official read pending - Patient does have history of PE but currently anticoagulated on Coumadin. - Received DuoNeb x 2 in the emergency department. ABG consistent with respiratory acidosis. Continue with scheduled DuoNeb - Continuous monitoring pulse ox. Wean oxygen as tolerated GI - N.p.o. for now RENAL/LYTES - -- CKD Creatinine 1.4 appears to be consistent with previous hospitalization. Monitor BUNs/creatinine Avoid nephrotoxic medications - Strict I's and O's ENDO - DM type IIcontinue sliding scale/basal bolus. ICU hyperglycemic protocol Hypothyroidismcontinue Synthroid when appropriate HEME - H&H stable, monitor routine CBC ID - -- Recent UTI on 10/17 with Klebsiella aerogenes UA 10/29/2023 seems to be more clear, no bacteria, only trace leukocyte Esterase Continue with empiric antibiotics for 48 hours LINES/IV ACCESS - Peripheral IVs DVT PROPHYLAXIS - SCDs, hold anticoagulation as patient would like any pacemaker Thank you for allowing us to participate in the care of this patient. Please refer to my attending physician's documentation for any further recommendations. Supervising Physician Co-Signing Physician Notes I saw and evaluated the patient with LOWELL Hernandez, and agree with findings and plan as documented in the note. 77-year-old female past medical history of hypercapnic hypoxic respiratory failure, CKD, hypertension, dementia was admitted to the hospital because of high-grade heart block. Was sent to the ICU for monitoring with possible transvenous pacemaker today. At the time of examination patient was on BiPAP, she was somnolent. Only answering to sternal rub Denied any headache, no chest pain, no belly pain. Was moving all extremities when she woke wakes up. She was on BiPAP saturating 99% on 30% FiO2, I went down to 25%. Constitutional: No acute distress HEENT: EOMI, PERRLA, arcus senilis bilaterally Respiratory system: Decreased air entry bilaterally, no wheeze, no rhonchi, positive crackles bilaterally CVS: S1-S2 positive, no murmurs or gallops Abdomen: Soft, nontender, nondistended, positive bowel sounds x4 Extremities: +2 pulses bilaterally radialis/ dorsalis pedis, no cyanosis, mild pitting edema bilateral lower extremity Neuro: Somnolent, on waking up oriented to self Psych: Unable to assess G/U: Positive Bruno --Prophylaxis VTE: IPC, on warfarin for history of PE at home GI: Pantoprazole Lines: Peripheral Diet: N.p.o. Plan: Chest x-ray from today shows increased cardiac silhouette with increased hilar vascular markings On the EKG strip it seems patient goes into complete heart block intermittently. Continue with telemonitoring Patient seems to be bradycardic in the mid 20s. Interestingly her systolic pressure is still in the 150s. Follow-up TSH Patient on donepezil at home which has been associated with bradycardia. Patient seems to be in high degree AV block to complete heart block. Case was discussed with cardiology, she will likely need temporary pacemaker and then permanent pacemaker on Broderick Seems to be more altered than baseline. Will get an ABG to see if her hypercapnia is getting worse. Continue with Rocephin for the time being empirically for 48 hours. If the urine culture is negative then stop. Case was discussed with cardiology Will consider heparin drip if there is no plan for pacemaker I have personally spent 42 minutes of critical care time in the direct management of this patient. This is a life/limb threatening event. This includes time spent evaluating patient, direct bedside care, chart review, placing orders, interpretation of diagnostic studies, discussion with consultants, patient, and family members, as well as other required patient management activities. This time is exclusive of all separately billable procedures, and teaching time and separate from and in addition to any other critical care service time. Please note the above document was generated using voice recognition software. It may contain grammatical, syntax or spelling errors. History of Present Illness Attending Physician: Meek Elliott MD History of Present Illness Patient is a 77-year-old female with past medical history significant for Diastolic heart failure, COPD, KENAN, paroxysmal A-fib, GERD, DM type II, hypothyroidism, who presented to the emergency department with respiratory distress from [facility]. She was placed on supplemental oxygen by EMS, and on arrival she was noted to have heart rate in the 30s. EKG revealed second- degree AV block. She was started on BiPAP and DuoNeb. She improved with BiPAP, and ABG showed Respiratory acidosis. cardiology was consulted and recommended admitting to ICU for close monitoring, anticipating that she will likely need pacemaker. On arrival to the ICU patient appears drowsy but easily arousable and appropriate. She is currently on BiPAP, with FiO2 30% and maintaining oxygen saturations without respiratory distress. Of note, she does wear BiPAP at bedtime. She currently denies any headache, dizziness, changes in vision, syncope, recent illness or fevers, chest pain or palpitations, shortness of breath, cough, nausea or vomiting or diarrhea, palpitations, abdominal pain, swelling hands or feet. Patient to remain in ICU for further management at this time. Low threshold for transvenous pacer, and will monitor closely. Allergies Allergy/AdvReac Type Severity Reaction Status Date / Time No Known Allergies Allergy Mild Verified 10/29/23 02:43 Home Medications Medication Instructions Recorded Confirmed Type acetaminophen 325 mg tablet 650 mg PO Q6 PRN Fever Or Pain 10/29/23 10/29/23 History (Tylenol) atorvastatin 20 mg tablet 20 mg PO HS 10/29/23 10/29/23 History camphor 4 %-methyl salicylate 30 1 applic topical QID PRN Pain 10/29/23 10/29/23 History %-menthol 10 % topical cream (Bengay Ultra Strength) cyanocobalamin (vitamin B-12) 500 1,000 mcg PO DAILY 10/29/23 10/29/23 History mcg tablet (Vitamin B-12) diclofenac sodium 1 % topical gel 4 g topical QID 10/29/23 10/29/23 History donepezil 5 mg tablet 5 mg PO DAILY 10/29/23 10/29/23 History dulaglutide 1.5 mg/0.5 mL 1.5 mg subcut .Q WED 10/29/23 10/29/23 History subcutaneous pen injector (Trulicity) famotidine 20 mg tablet 20 mg PO BID 10/29/23 10/29/23 History ferrous sulfate 325 mg (65 mg 325 mg PO DAILY 10/29/23 10/29/23 History iron) tablet insulin aspart U-100 100 unit/mL 15 unit subcut TIDWMEAL 10/29/23 10/29/23 History subcutaneous solution (Novolog U-100 Insulin aspart) insulin aspart U-100 100 unit/mL See Rx Instructions .Route .COMPLEX 10/29/23 10/29/23 History subcutaneous solution (Novolog U-100 Insulin aspart) insulin glargine 100 unit/mL (3 35 unit subcut DAILY 10/29/23 10/29/23 History mL) subcutaneous pen (Lantus Solostar U-100 Insulin) ketoconazole 2 % topical cream 1 applic topical .PM SHIFT TUES & 10/29/23 10/29/23 History FRI levothyroxine 50 mcg tablet 50 mcg PO DAILY 10/29/23 10/29/23 History melatonin 5 mg tablet 5 mg PO HS 10/29/23 10/29/23 History menthol 7.5 mg lozenges (Barrow 7 mg PO DIRECTED PRN Cough 10/29/23 10/29/23 History Cough Drops) multivitamin 1 tab PO DAILY 10/29/23 10/29/23 History olanzapine 2.5 mg tablet 2.5 mg PO TID 10/29/23 10/29/23 History omega-3 fatty acids 1,000 mg 1,000 mg PO BID 10/29/23 10/29/23 History capsule sennosides 8.6 mg tablet 17.2 mg PO CQWK 10/29/23 10/29/23 History tobramycin 0.3 % eye drops 2 drp OPB QID 10/29/23 10/29/23 History warfarin 4 mg tablet 4 mg PO HS 10/29/23 10/29/23 History Patient History Medical History Acute on chronic respiratory failure with hypoxia and hypercapnia Hypothyroidism Acute UTI Pneumonia Paroxysmal A-fib GERD (gastroesophageal reflux disease) Morbid obesity with BMI of 50.0-59.9, adult HTN (hypertension) Obstructive sleep apnea Diastolic CHF Pulmonary HTN Aortic valve stenosis Vitamin D deficiency CKD (chronic kidney disease) stage 3, GFR 30-59 ml/min Dyslipidemia Diabetes Surgical History History of cardiac cath Hx of total knee arthroplasty S/P AVR Family History Father Cancer pancreatic cancer Social History Smoking Status: Never smoker Second Hand Exposure: No; Do You Dip or Chew Tobacco: No; Hx Alcohol Use: No Hx Substance Use: No Preferred Language: Niuean Communication Ability: Impaired Communication Ability Comment: Pt is obtunded on bipap Marzipan Molder Required: No Beliefs That Will Affect Care: None marital status: Current Living Situation: [facility] Current Living Situation Comment: lives at home with son Other Information That Helps Us Care for You: No Feels Safe at Home: Yes Safety Concerns: Feels Safe At This Time Assistive Devices: BiPap and Oxygen - Continuous Review of Systems 2 Review of Systems: All systems reviewed & are unremarkable except as noted in HPI & below Physical Exam 2 Constitutional: + obese, cooperative and comfortable; no acute distress Eyes: PERRL, conjunctivae normal, anicteric sclerae ENMT: external ear and nose normal, oropharynx normal Neck: trachea midline, no thyromegaly Respiratory: normal respiratory effort, lungs clear to auscultation Cardiovascular: RRR, no murmur, no edema Gastrointestinal (Abdomen): normal bowel sounds, soft, nontender, no hepatosplenomegaly Musculoskeletal: no cyanosis or clubbing, extremities motor strength 5/5 Skin: Psoriasis noted on right upper extremity, skin is warm and dry Neurologic: PERRL, EOMI, accommodation nl, no face palsy, no dysarthria Psychiatric: A+Ox3, euthymic affect Results & Data Results & Data Vital Signs (Past 12 Hours) Vital Signs Temp Pulse Pulse Resp BP Pulse Ox O2 Del Method 10/29/23 04:00 32 L 14 148/65 H 93 BiPAP 10/29/23 03:50 34 L 26 H 99 10/29/23 03:31 31 L 22 93 BiPAP 10/29/23 03:02 34 L 17 132/56 L 93 BiPAP 10/29/23 02:30 33 L 17 142/60 H 93 BiPAP 10/29/23 02:02 38 L 22 108/75 95 BiPAP 10/29/23 01:45 39 L 31 H 98 10/29/23 01:42 38 L 20 137/65 100 Non-rebreather 10/29/23 01:30 33 L 10/29/23 01:28 36.7 C 34 L 24 100 Non-rebreather 10/29/23 01:28 Non-rebreather FiO2 10/29/23 04:00 10/29/23 03:50 30 10/29/23 03:31 30 10/29/23 03:02 10/29/23 02:30 10/29/23 02:02 10/29/23 01:45 30 10/29/23 01:42 10/29/23 01:30 10/29/23 01:28 10/29/23 01:28 Laboratory Results 10/29/23 04:57 10/29/23 04:57 Coding Level of Care Code 77361 CRITICAL CARE 1ST 30-74M Diagnoses Second degree heart block I44.1 Acute on chronic respiratory failure with hypoxia and hypercapnia J96.21; J96.22 Bradycardia R00.1 Atrial fibrillation I48.91 Hypothyroidism E03.9 DMII (diabetes mellitus, type 2) E11.9 GERD (gastroesophageal reflux disease) K21.9 COPD (chronic obstructive pulmonary disease) J44.9 COPD type: unspecified COPD (8) COPD (chronic obstructive pulmonary disease) COPD type: unspecified COPD Qualified Code(s): J44.9 - Chronic obstructive pulmonary disease, unspecified
[2023-10-29 05:24] LABS: Basophils # (auto) 0.04 K/uL (0.00-0.20); Basophils % (auto) 0.5 %; Eosinophils # (auto) 0.11 K/uL (0.00-0.50); Eosinophils % (auto) 1.5 %; Hematocrit (blood only) 35.7 % (37.0-47.0); Hemoglobin 10.7 g/dl (12.0-16.0); Immature Granulocytes # (auto) 0.01 K/uL (0.01-0.20); Immature Granulocytes % (auto) 0.1 %; Lymphocytes # (auto) 1.94 K/uL (1.20-3.40); Lymphocytes % (auto) 25.6 %; Mean Corpuscular Hemoglobin 28.3 pg (25.0-34.0); Mean Corpuscular Volume 94.4 fL (80.0-100.0); Mean Platelet Volume 10.7 fL (9.4-12.4); Monocytes # (auto) 0.57 K/uL (0.11-0.59); Monocytes % (auto) 7.5 %; Neutrophils # (auto) 4.91 K/uL (1.40-6.50); Neutrophils % (auto) 64.8 %; Platelet Count 201 K/uL (130-400); RDW Coefficient of Variation 16.6 % (11.5-14.5); RDW Standard Deviation 57.7 fL (36.4-46.3); Red Blood Count 3.78 M/uL (4.20-5.40); White Blood Count 7.58 K/ul (4.8-10.8)
[2023-10-29 05:41] LABS: Albumin Globulin Ratio 0.9 (0.9-2); Albumin Level 3.5 gm/dl (3.4-5.0); BUN Creatinine Ratio 23.4 (10-20); Bilirubin,Total 0.5 mg/dl (0.2-1.0); Calcium 9.3 mg/dl (8.6-10.3); Creatinine Clr Calc Pharmacy 44.6 ml/min; Est GFR (Non-African American) 35.3 ml/min; Globulin 3.8 gm/dl (2.5-4.0); Potassium 4.5 mmol/L (3.5-5.1); Total Protein 7.3 gm/dl (6.0-8.3)
[2023-10-29 05:53] LABS: INR 1.4 (0.9-1.1); Prothrombin Time 15.2 Seconds (9.0-12.0)
[2023-10-29] MEDS ORDERED: Nursing to Pharmacy Communication SCH ×2 (06:00→17:00)
[2023-10-29] MEDS: INSULIN ASPART PER UNIT CHARGE SC SCH ×2 (06:04→17:59)
--- NOTE | 2023-10-29 06:56 | Billing Data ---
Date of Service October 29, 2023 Coding Level of Care Code 41158 CRITICAL CARE M
--- NOTE | 2023-10-29 07:04 | Hospitalist Progress Note ---
Date of Service October 29, 2023 Assessment & Plan (1) Acute kidney injury superimposed on CKD: (2) Bradycardia: (3) Second degree heart block: (4) Obstructive sleep apnea: (5) Acute UTI (urinary tract infection): (6) Acute respiratory failure with hypoxia and hypercarbia: (7) History of pulmonary embolus (PE): Plan Assessment & Plan (1) Admitted to intensive care unit: (2) Bradycardia: (3) Second degree heart block: (4) Acute respiratory failure with hypoxia and hypercarbia: (5) Atrial fibrillation: (6) Obstructive sleep apnea: (7) History of pulmonary embolus (PE): (8) Paroxysmal A-fib: (9) Acute kidney injury superimposed on CKD: Plan 1) Symptomatic intermittent second-degree type II versus third-degree heart block/PAF/hypertension/diastolic CHF- Heart rate remained in the 30s-40s and systolic blood pressure maintained greater than or equal to 130s. Patient admitted to the ICU Transcutaneous pacer pads placed overnight, transcutaneous pacing deferred today Cardiology Dr. Short aware, consulted Patient is not on any negative inotropes Holding warfarin, for potential procedure on Tuesday with present INR subtherapeutic at 1.4 Hold stheparin at this time, as cardiology will be here in about 4 hours, can address anticoagulation postprocedure HS troponin 78.5 <-- 110.4 <-- 86.7, downtrended, discontinued 2) Acute on chronic respiratory failure with hypoxia and hypercapnia/diastolic CHF/obesity hypoventilation syndrome- Admitted to the ICU as noted Continue BiPAP for now, and titrate downward as symptoms of resp distress improve Stress ulcer prevention, pantoprazole, 40 mg, IV, daily Most recent echocardiogram from 03/06 with ejection fraction 60-65% and mild mitral stenosis 3) CIERA superimposed on CKD/hypomagnesemia- Creatinine, 1.44, (baseline, 1.14) IV fluids as noted Mg, Received 2 g of magnesium sulfate IV from the ED Recheck laboratories in the AM Chest x-ray shows cardiomegaly, with no signs of CHF 4) Klebsiella aerogenes, UTI From urine culture on 10/18/2023 Unclear if ever treated, consider oral alternative to CFTX Ceftriaxone 2 g IV daily Admission and Anticipated Discharge Date Admission Date: October 29, 2023 Supervising Physician Co-Signing Physician Notes I personally examined the patient and verified marquez points of history and exam, discussed case, and agree with decision making and plan documented by Dr. Wisdom. Patient presenting with respiratory failure in setting of heart block. Patient on BiPAP in ICU during exam, awake and oriented, morbidly obese, bradycardic in 40s, anterior auscultation of lungs with diminished sounds, nontender abdomen with normal bowel sounds, lower extremity edema bilaterally. Cardiology consulted for recommendations. Subjective Chief Complaint: The patient presented to the emergency department by EMS when found to be in acute respiratory distress, that responded well to nonrebreather oxygen supplied. In the emergency department, she was placed on BiPAP, and given a DuoNeb, which further improved her breathing and oxygenation. EKG suggested complete heart block, and plans were made to admit the patient to the ICU for further treatment after speaking with cardiology Dr. Short. Primary Care Provider: [facility] The patient is a 77-year-old female with a past medical history including atrial fibrillation, KENAN, acute on chronic respiratory failure, UTI, hypothyroidism, Mobitz type I second-degree AV block, encephalopathy, diabetes mellitus type 2, chronic use of anticoagulation with warfarin, right foot ulcer, PE, hypomagnesemia, GERD, lower extremity edema and COPD. The patient was transferred from [facility], due to acute respiratory failure and noted low oxygenation. She was initially placed on nonrebreather mask by EMS, and then placed on BiPAP upon arrival to the emergency department. EKG showed heart block, and patient remained in heart rate of 30s to 40s with systolic blood pressure maintained in the 130s. Patient admitted to the ICU, use transcutaneous pacer as needed, and will be seen by cardiology in the AM for likely transvenous pacer Should consider calling family, son, later today. Patient w/ dementia, 2L O2 req at baseline. Review of Systems Review of Systems: Unobtainable due to cognitive status and Unobtainable due to reduced consciousness Physical Exam Constitutional: well developed, + morbidly obese, cooperative and + mechanically ventilated Eyes: PERRL Respiratory: Patient on ventilator, on BiPap settings Cardiovascular: Rate/Rhythm: regular rhythm and + bradycardic Extremities: normal capillary refill Neurologic: moves all extremities Cranial Nerves: PERRL and no nystagmus Follows commands: squeezes fingers Babinski negative, patient moves LE's when tickled, withdraws from pain (nailbed pressure) Results & Data Results & Data Vital Signs (Past 12 Hours) Vital Signs Temp Pulse Pulse Resp BP BP Pulse Ox 10/29/23 06:03 36.7 C 34 L 7 L 93 10/29/23 06:01 132/54 L 10/29/23 05:54 36.7 C 30 L 9 L 92 10/29/23 05:36 36.9 C 30 L 18 91 10/29/23 04:45 30 L 10/29/23 04:45 10/29/23 04:45 37 C 31 L 15 151/54 H 92 10/29/23 04:33 34 L 18 95 10/29/23 04:00 32 L 14 148/65 H 93 10/29/23 03:50 34 L 26 H 99 10/29/23 03:31 31 L 22 93 10/29/23 03:02 34 L 17 132/56 L 93 10/29/23 02:30 33 L 17 142/60 H 93 10/29/23 02:02 38 L 22 108/75 95 10/29/23 01:45 39 L 31 H 98 10/29/23 01:42 38 L 20 137/65 100 10/29/23 01:30 33 L 10/29/23 01:28 36.7 C 34 L 24 100 10/29/23 01:28 O2 Del Method FiO2 10/29/23 06:03 10/29/23 06:01 10/29/23 05:54 10/29/23 05:36 10/29/23 04:45 10/29/23 04:45 BiPAP 30 10/29/23 04:45 CPAP 30 10/29/23 04:33 10/29/23 04:00 BiPAP 10/29/23 03:50 30 10/29/23 03:31 BiPAP 30 10/29/23 03:02 BiPAP 10/29/23 02:30 BiPAP 10/29/23 02:02 BiPAP 10/29/23 01:45 30 10/29/23 01:42 Non-rebreather 10/29/23 01:30 10/29/23 01:28 Non-rebreather 10/29/23 01:28 Non-rebreather Resident Activity Tracking Resident Involvement: Resident Care Provided Care Provided: Adult Hospital Medicine
--- NOTE | 2023-10-29 07:23 | Electrocardiogram Report ---
Test Reason : Blood Pressure : / mmHG Vent. Rate : 035 BPM Atrial Rate : 098 BPM P-R Int : 208 ms QRS Dur : 138 ms QT Int : 482 ms P-R-T Axes : 074 094 046 degrees QTc Int : 367 ms Sinus rhythm with 2nd degree A-V block with 3:1 A-V conduction Right bundle branch block Abnormal ECG When compared with ECG of 09-JUL-2023 15:39, Sinus rhythm is now with 2nd degree A-V block Vent. rate has decreased BY 49 BPM T wave inversion no longer evident in Inferior leads Nonspecific T wave abnormality has replaced inverted T waves in Anterior leads T wave inversion now evident in Lateral leads QT has shortened Confirmed by Wally Short ([id number]) on 10/29/2023 7:23:38 AM Referred By: [facility] Confirmed By:Pierre Short
[2023-10-29] MEDS ORDERED: INSULIN ASPART PER UNIT CHARGE SC SCH (07:30)
[2023-10-29] MEDS ORDERED: ICU Protocol for HYPERglycemia SCH (07:30)
[2023-10-29 07:40] LABS: Estimated Average Glucose 180 mg/dl; Hemoglobin A1C 7.9 % (4.5-5.6)
[2023-10-29] MEDS: ALBUT/IPRATROP 3MG/0.5MG NEB 3 ML VIAL NEB SCH (07:47)
[2023-10-29 08:02] LABS: iSTAT Art Bld Gas pCO2 Correct 65 mmHg (35-46); iSTAT Art Bld Gas pH Corrected 7.321 (7.35-7.45); iSTAT Arterial Blood Gas HCO3 34 meg/L (19-24); iSTAT Arterial Blood Gas pCO2 67 mmHg (35-46); iSTAT Arterial Blood Gas pH 7.31 (7.35-7.45); iSTAT Arterial Blood Gas pO2 82 mmHg (80-95); iSTAT Arterial Blood Gas pO2 C 79; iSTAT Carbon Dioxide 36 mmol/L (24-31); iSTAT FiO2 30 %; iSTAT Hematocrit 32 % (37-47); iSTAT Hemoglobin 10.9 g/dl (12.0-16.0); iSTAT Potassium 4.4 mmol/L (3.3-5.0); iSTAT Site L Brachial; iSTAT Sodium 144 mmol/L (135-144)
--- NOTE | 2023-10-29 08:07 | XRay Report ---
XR chest 1V portable HISTORY: 77 years-old Female Dyspnea acute shortness of breath COMPARISON: 07/09/2023 TECHNIQUE: AP view of the chest FINDINGS: Cardiac silhouette is enlarged. Mild right hemidiaphragmatic elevation. Median sternotomy wires. Trac e pleural effusions. Pulmonary vascular congestion with mild bibasilar densities. Bones appear grossl y intact. IMPRESSION: 1. Cardiomegaly with pulmonary vascular congestion. 2. Trace pleural effusions with mild bibasilar atelectasis. ACT 112: Negative or not required by law. The above report was generated using voice recognition software. It may contain grammatical, syntax o r spelling errors. Electronically signed by: Roc Corral M.D. 10/29/2023 8:05 AM
[2023-10-29] MEDS ORDERED: PNEUMOCOCCAL VACCINE (PCV20) 20-VAL CONJ-DIP CRM/PF 0.5 ML SYR IM ONE (09:00)
[2023-10-29] MEDS: PANTOprazole 40 MG in SYRINGE 0 ML IV SCH (11:15)
[2023-10-29] MEDS: amLODIPine BESYLATE 5 MG TAB PO ONE (15:01)
--- NOTE | 2023-10-29 16:24 | XCELERA ---
[id number]
--- NOTE | 2023-10-29 17:49 | Cardiology Consultation ---
Date of Consultation October 29, 2023 Assessment & Plan (1) Bradycardia: (2) Second degree heart block: (3) Acute respiratory failure with hypoxia and hypercarbia: (4) Aortic valve stenosis: Plan 1. Bradycardia: Associated with high-degree AV block. Not seen on prior EKGs. Very likely age related. At 1st it seemed that the AV block improved as her acidosis improved, but this afternoon she continues to have 2-1 AV block. Right bundle branch block at baseline. History of aortic valve replacement. Advanced age. Currently not symptomatic. Hemodynamically stable. Given her level of activity she may not be very symptomatic even with the associated bradycardia. However, it seems obvious that she will have additional episodes of significant bradycardia likely precipitating hospital evaluation. I did discuss the situation with her son while the patient was still less responsive. He wishes to discuss the situation with the patient's sister. I did discuss the situation with the patient as well when her cognitive function was improved. This point there has been no commitment to a permanent pacemaker despite my recommendation. 2. Aortic valve disease: Patient appears have undergone a bioprosthetic aortic valve replacement at an unknown date. She cannot recall the details. She believes was performed [facility] which is clearly not correct. Unfortunately, due to her body habitus no usable images were obtained of the aortic valve. 3. Respiratory failure: Improving. Most likely due to hypoventilation. She is known to be noncompliant with BiPAP therapy. History of Present Illness Reason for Consultation: Heart block Requesting Physician: Lexi Attending Physician: Mel Holbrook DO History of Present Illness The patient is a 77-year-old woman with a history of mild dementia, chronic respiratory failure due to obesity hypoventilation syndrome and aortic valve disease status post bioprosthetic aortic valve replacement who was brought from her nursing facility to the hospital due to unresponsiveness and hypoxia. She is noted to have hypercapnic hypoxemic respiratory failure and started on supportive measures. At the time of her evaluation she was also noted to have significant bradycardia related to high-degree AV block. Initially the patient could not provide any history. However, as her condition improved throughout the course of the day she was quite conversive appeared to have a reasonable understanding of her current situation generally speaking she is not ambulatory. She is lifted into wheelchair during the day but is able to wheel herself around her facility. She is able to feed herself and can engage in certain activities. She did not describe overt shortness of breath but does recall wearing oxygen most of the time. She has not been aware of any palpitations. She denied pain of any kind currently. No chest pain recently. Allergies Allergy/AdvReac Type Severity Reaction Status Date / Time No Known Allergies Allergy Mild Verified 10/29/23 02:43 Home Medications Medication Instructions Recorded Confirmed Type acetaminophen 325 mg tablet 650 mg PO Q6 PRN Fever Or Pain 10/29/23 10/29/23 History (Tylenol) atorvastatin 20 mg tablet 20 mg PO HS 10/29/23 10/29/23 History camphor 4 %-methyl salicylate 30 1 applic topical QID PRN Pain 10/29/23 10/29/23 History %-menthol 10 % topical cream (Bengay Ultra Strength) cyanocobalamin (vitamin B-12) 500 1,000 mcg PO DAILY 10/29/23 10/29/23 History mcg tablet (Vitamin B-12) diclofenac sodium 1 % topical gel 4 g topical QID 10/29/23 10/29/23 History donepezil 5 mg tablet 5 mg PO DAILY 10/29/23 10/29/23 History dulaglutide 1.5 mg/0.5 mL 1.5 mg subcut .Q WED 10/29/23 10/29/23 History subcutaneous pen injector (Trulicity) famotidine 20 mg tablet 20 mg PO BID 10/29/23 10/29/23 History ferrous sulfate 325 mg (65 mg 325 mg PO DAILY 10/29/23 10/29/23 History iron) tablet insulin aspart U-100 100 unit/mL 15 unit subcut TIDWMEAL 10/29/23 10/29/23 History subcutaneous solution (Novolog U-100 Insulin aspart) insulin aspart U-100 100 unit/mL See Rx Instructions .Route .COMPLEX 10/29/23 10/29/23 History subcutaneous solution (Novolog U-100 Insulin aspart) insulin glargine 100 unit/mL (3 35 unit subcut DAILY 10/29/23 10/29/23 History mL) subcutaneous pen (Lantus Solostar U-100 Insulin) ketoconazole 2 % topical cream 1 applic topical .PM SHIFT TUES & 10/29/23 10/29/23 History FRI levothyroxine 50 mcg tablet 50 mcg PO DAILY 10/29/23 10/29/23 History melatonin 5 mg tablet 5 mg PO HS 10/29/23 10/29/23 History menthol 7.5 mg lozenges ([place] 7 mg PO DIRECTED PRN Cough 10/29/23 10/29/23 History Cough Drops) multivitamin 1 tab PO DAILY 10/29/23 10/29/23 History olanzapine 2.5 mg tablet 2.5 mg PO TID 10/29/23 10/29/23 History omega-3 fatty acids 1,000 mg 1,000 mg PO BID 10/29/23 10/29/23 History capsule sennosides 8.6 mg tablet 17.2 mg PO CQWK 10/29/23 10/29/23 History tobramycin 0.3 % eye drops 2 drp OPB QID 10/29/23 10/29/23 History warfarin 4 mg tablet 4 mg PO HS 10/29/23 10/29/23 History Patient History Medical History Acute on chronic respiratory failure with hypoxia and hypercapnia Hypothyroidism Acute UTI Pneumonia Paroxysmal A-fib GERD (gastroesophageal reflux disease) Morbid obesity with BMI of 50.0-59.9, adult HTN (hypertension) Obstructive sleep apnea Diastolic CHF Pulmonary HTN Aortic valve stenosis Vitamin D deficiency CKD (chronic kidney disease) stage 3, GFR 30-59 ml/min Dyslipidemia Diabetes Surgical History History of cardiac cath Hx of total knee arthroplasty S/P AVR Family History Father Cancer pancreatic cancer Social History Smoking Status: Never smoker Second Hand Exposure: No; Do You Dip or Chew Tobacco: No; Hx Alcohol Use: No Hx Substance Use: No Preferred Language: [place] Communication Ability: Unable Communication Ability Comment: Pt 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 Physical Exam Physical Exam: She is alert and oriented to person and place. She had a fair understanding of the situation. She answered all questions appropriately. HEENT: Sclerae are anicteric. Pupils are equal and reactive to light and accommodation. Extraocular movements were intact. Neuro: Cranial nerves intact Lungs: Distant breath sounds. No expiratory wheezing. Normal respiratory effort. Cardiac: The rhythm was regular but slow. S1 and S2 were normal. There are no murmurs on examination. The PMI was not markedly displaced on palpation. Abdomen: Obese Extremities: Patient has bilateral radial pulses that are equal in intensity. There is no evidence cyanosis or clubbing. Skin: Multiple eczematous patches Results & Data Vital Signs (Past 12 Hours) Vital Signs Temp Pulse Pulse Resp BP Pulse Ox O2 Del Method 10/29/23 15:39 36.5 C 50 L 20 175/73 H 100 10/29/23 15:37 40 L 20 100 10/29/23 15:35 50 L 20 97 BiPAP 10/29/23 15:26 37 L 10/29/23 15:06 36.5 C 30 L 18 89 L 10/29/23 14:30 36.4 C L 50 L 14 95 10/29/23 14:12 36.4 C L 47 L 20 98 10/29/23 14:12 172/59 H 10/29/23 13:45 36.3 C L 48 L 20 97 10/29/23 13:09 36.2 C L 44 L 16 189/89 H 97 10/29/23 12:30 36.2 C L 43 L 14 150/57 H 95 10/29/23 12:12 36.3 C L 50 L 20 164/72 H 97 10/29/23 11:35 47 L 20 100 10/29/23 11:33 161/66 H 10/29/23 11:33 36.4 C L 48 L 18 96 10/29/23 11:33 41 L 20 95 10/29/23 11:30 36.4 C L 46 L 18 161/66 H 95 10/29/23 11:00 36.4 C L 41 L 17 146/66 H 94 10/29/23 10:36 36.4 C L 44 L 18 96 10/29/23 10:31 169/74 H 10/29/23 10:12 36.3 C L 40 L 20 96 10/29/23 10:09 36.3 C L 38 L 19 170/76 H 97 10/29/23 09:54 BiPAP 10/29/23 09:30 36.2 C L 52 L 18 92 10/29/23 09:30 151/66 H 10/29/23 09:09 36.4 C L 35 L 8 L 93 10/29/23 09:07 BiPAP 10/29/23 08:45 36.4 C L 35 L 18 94 10/29/23 08:33 28 L 10/29/23 08:31 137/63 10/29/23 08:30 36.5 C 51 L 22 90 10/29/23 08:22 167/73 H 10/29/23 08:17 36 L 21 100 10/29/23 08:09 36.5 C 26 L 13 100 10/29/23 08:01 142/70 H 10/29/23 08:00 36.4 C L 27 L 17 100 10/29/23 07:51 36.4 C L 29 L 17 98 10/29/23 07:47 36 L 21 100 BiPAP 10/29/23 07:00 36.6 C 31 L 21 93 10/29/23 06:03 36.7 C 34 L 7 L 93 10/29/23 06:01 132/54 L 10/29/23 05:54 36.7 C 30 L 9 L 92 FiO2 10/29/23 15:39 10/29/23 15:37 25 10/29/23 15:35 25 10/29/23 15:26 10/29/23 15:06 10/29/23 14:30 10/29/23 14:12 10/29/23 14:12 10/29/23 13:45 10/29/23 13:09 10/29/23 12:30 10/29/23 12:12 10/29/23 11:35 25 10/29/23 11:33 10/29/23 11:33 10/29/23 11:33 25 10/29/23 11:30 10/29/23 11:00 10/29/23 10:36 10/29/23 10:31 10/29/23 10:12 10/29/23 10:09 10/29/23 09:54 30 10/29/23 09:30 10/29/23 09:30 10/29/23 09:09 10/29/23 09:07 30 10/29/23 08:45 10/29/23 08:33 10/29/23 08:31 10/29/23 08:30 10/29/23 08:22 10/29/23 08:17 30 10/29/23 08:09 10/29/23 08:01 10/29/23 08:00 10/29/23 07:51 10/29/23 07:47 30 10/29/23 07:00 10/29/23 06:03 10/29/23 06:01 10/29/23 05:54 Laboratory Results Abnormal Lab Results 10/29/23 10/29/23 10/29/23 01:30 01:36 01:39 WBC 8.53 RBC 4.00 L Hgb 11.2 L POC Hgb 11.9 L 11.9 L Hct 37.6 POC Hct 35 L 35 L MCV 94.0 MCH 28.0 MCHC 29.8 L RDW Std Deviation 56.7 H RDW Coeff of Jacqueline 16.6 H Plt Count 222 MPV 10.8 Immature Gran % (Auto) 0.2 Neut % (Auto) 73.8 Lymph % (Auto) 18.8 [place] % (Auto) 6.1 Eos % (Auto) 0.6 Baso % (Auto) 0.5 Neut # (Auto) 6.30 Lymph # (Auto) 1.60 [place] # (Auto) 0.52 Eos # (Auto) 0.05 Baso # (Auto) 0.04 Immature Gran # (Auto) 0.02 PT 16.2 H INR 1.6 H APTT 28 PTT Ratio 1.0 Sample Site POC pH 7.31 L POC pCO2 68 H POC pO2 186 H POC HCO3 34 H POC Total CO2 36 H 35 H POC Base Excess 8.0 H ABG pH (Temp Correct) ABG pCO2 (Temp Corrct POC ABG pO2 at Pt Temp POC ABG O2 Sat 99.0 H Jose Test O2 Delivery Device POC O2 Rate POC FiO2 IPAP POC Sodium 143 144 Sodium 143 POC Potassium 4.7 4.7 Potassium 4.8 POC Chloride 104 Chloride 104 Carbon Dioxide 34 H Anion Gap 5 POC Anion Gap 11.0 L POC BUN 29 H BUN 34 H Creatinine 1.44 H POC Creatinine 1.5 H Est Cr Clr Drug Dosing 43.1 Est GFR ( Amer) 39.9 Est GFR (Non-Af Amer) 34.5 BUN/Creatinine Ratio 23.6 H Glucose 183 H POC Glucose POC Glucose (other) 181 H Estimat Average Glucose Hemoglobin A1c Calcium 9.3 POC Ioniz Calcium Liss 1.18 Magnesium 1.5 L Total Bilirubin 0.5 AST 26 ALT 49 Alkaline Phosphatase 137 H Troponin I High Sens 86.7 H* B-Natriuretic Peptide 464 H Total Protein 7.6 Albumin 3.6 Globulin 4.0 Albumin/Globulin Ratio 0.9 TSH Urine Color Urine Appearance Urine pH Ur Specific [place] Urine Protein Urine Glucose (UA) Urine Ketones Urine Blood Urine Nitrite Urine Bilirubin Urine Urobilinogen Ur Leukocyte Esterase Urine WBC (Auto) Urine RBC (Auto) U Hyaline Cast (Auto) U Epithel Cells (Auto) Urine Bacteria (Auto) Nasal Screen MRSA (PCR) Adenovirus (PCR) B. pertussis DNA (PCR) B.parapertussis DNA PCR C. pneumoniae DNA (PCR) Coronavirus OC43 (PCR) Coronavirus HKU1 (PCR) Coronavirus 229E (PCR) SARS-CoV-2 (PCR) Coronavirus NL63 (PCR) Human Metapneumovir PCR Influenza Type A (PCR) Influenza Type B (PCR) M. pneumoniae (PCR) Parainfluenza 1 (PCR) Parainfluenza 2 (PCR) Parainfluenza 3 (PCR) Parainfluenza 4 (PCR) RSV (PCR) Entero/Rhino (PCR) 10/29/23 10/29/23 10/29/23 01:44 03:10 03:45 WBC RBC Hgb POC Hgb Hct POC Hct MCV MCH MCHC RDW Std Deviation RDW Coeff of Jacqueline Plt Count MPV Immature Gran % (Auto) Neut % (Auto) Lymph % (Auto) [place] % (Auto) Eos % (Auto) Baso % (Auto) Neut # (Auto) Lymph # (Auto) [place] # (Auto) Eos # (Auto) Baso # (Auto) Immature Gran # (Auto) PT INR APTT PTT Ratio Sample Site POC pH POC pCO2 POC pO2 POC HCO3 POC Total CO2 POC Base Excess ABG pH (Temp Correct) ABG pCO2 (Temp Corrct POC ABG pO2 at Pt Temp POC ABG O2 Sat Jose Test O2 Delivery Device POC O2 Rate POC FiO2 IPAP POC Sodium Sodium POC Potassium Potassium POC Chloride Chloride Carbon Dioxide Anion Gap POC Anion Gap POC BUN BUN Creatinine POC Creatinine Est Cr Clr Drug Dosing Est GFR ( Amer) Est GFR (Non-Af Amer) BUN/Creatinine Ratio Glucose POC Glucose POC Glucose (other) Estimat Average Glucose Hemoglobin A1c Calcium POC Ioniz Calcium Liss Magnesium Total Bilirubin AST ALT Alkaline Phosphatase Troponin I High Sens 110.4 H* D B-Natriuretic Peptide Total Protein Albumin Globulin Albumin/Globulin Ratio TSH Urine Color Yellow Urine Appearance Clear Urine pH 5.5 Ur Specific [place] 1.019 Urine Protein 1+ H Urine Glucose (UA) Negative Urine Ketones Negative Urine Blood Negative Urine Nitrite Negative Urine Bilirubin Negative Urine Urobilinogen Negative Ur Leukocyte Esterase Trace H Urine WBC (Auto) 0-5 Urine RBC (Auto) 0-2 U Hyaline Cast (Auto) 0-2 U Epithel Cells (Auto) 3-5 H Urine Bacteria (Auto) None Seen Nasal Screen MRSA (PCR) Adenovirus (PCR) Not Detected B. pertussis DNA (PCR) Not Detected B.parapertussis DNA PCR Not Detected C. pneumoniae DNA (PCR) Not Detected Coronavirus OC43 (PCR) Not Detected Coronavirus HKU1 (PCR) Not Detected Coronavirus 229E (PCR) Not Detected SARS-CoV-2 (PCR) Not Detected Coronavirus NL63 (PCR) Not Detected Human Metapneumovir PCR Not Detected Influenza Type A (PCR) Not Detected Influenza Type B (PCR) Not Detected M. pneumoniae (PCR) Not Detected Parainfluenza 1 (PCR) Not Detected Parainfluenza 2 (PCR) Not Detected Parainfluenza 3 (PCR) Not Detected Parainfluenza 4 (PCR) Not Detected RSV (PCR) Not Detected Entero/Rhino (PCR) Not Detected 10/29/23 10/29/23 10/29/23 03:55 04:57 05:57 WBC 7.58 RBC 3.78 L Hgb 10.7 L POC Hgb 11.2 L Hct 35.7 L POC Hct 33 L MCV 94.4 MCH 28.3 MCHC 30.0 L RDW Std Deviation 57.7 H RDW Coeff of Jacqueline 16.6 H Plt Count 201 MPV 10.7 Immature Gran % (Auto) 0.1 Neut % (Auto) 64.8 Lymph % (Auto) 25.6 [place] % (Auto) 7.5 Eos % (Auto) 1.5 Baso % (Auto) 0.5 Neut # (Auto) 4.91 Lymph # (Auto) 1.94 [place] # (Auto) 0.57 Eos # (Auto) 0.11 Baso # (Auto) 0.04 Immature Gran # (Auto) 0.01 PT 15.2 H INR 1.4 H APTT PTT Ratio Sample Site POC pH 7.30 L POC pCO2 67 H POC pO2 76 L POC HCO3 33 H POC Total CO2 35 H POC Base Excess 7.0 H ABG pH (Temp Correct) ABG pCO2 (Temp Corrct POC ABG pO2 at Pt Temp POC ABG O2 Sat 93.0 Jose Test O2 Delivery Device POC O2 Rate POC FiO2 IPAP POC Sodium 144 Sodium 144 POC Potassium 4.5 Potassium 4.5 POC Chloride Chloride 105 Carbon Dioxide 34 H Anion Gap 5 POC Anion Gap POC BUN BUN 33 H Creatinine 1.41 H POC Creatinine Est Cr Clr Drug Dosing 44.6 Est GFR ( Amer) 41.0 Est GFR (Non-Af Amer) 35.3 BUN/Creatinine Ratio 23.4 H Glucose 159 H POC Glucose 140 H POC Glucose (other) Estimat Average Glucose 180 Hemoglobin A1c 7.9 H Calcium 9.3 POC Ioniz Calcium Liss Magnesium Total Bilirubin 0.5 AST 23 ALT 46 Alkaline Phosphatase 127 H Troponin I High Sens B-Natriuretic Peptide Total Protein 7.3 Albumin 3.5 Globulin 3.8 Albumin/Globulin Ratio 0.9 TSH 3.377 Urine Color Urine Appearance Urine pH Ur Specific [place] Urine Protein Urine Glucose (UA) Urine Ketones Urine Blood Urine Nitrite Urine Bilirubin Urine Urobilinogen Ur Leukocyte Esterase Urine WBC (Auto) Urine RBC (Auto) U Hyaline Cast (Auto) U Epithel Cells (Auto) Urine Bacteria (Auto) Nasal Screen MRSA (PCR) Adenovirus (PCR) B. pertussis DNA (PCR) B.parapertussis DNA PCR C. pneumoniae DNA (PCR) Coronavirus OC43 (PCR) Coronavirus HKU1 (PCR) Coronavirus 229E (PCR) SARS-CoV-2 (PCR) Coronavirus NL63 (PCR) Human Metapneumovir PCR Influenza Type A (PCR) Influenza Type B (PCR) M. pneumoniae (PCR) Parainfluenza 1 (PCR) Parainfluenza 2 (PCR) Parainfluenza 3 (PCR) Parainfluenza 4 (PCR) RSV (PCR) Entero/Rhino (PCR) 10/29/23 10/29/23 10/29/23 07:48 11:28 11:59 WBC RBC Hgb POC Hgb 10.9 L Hct POC Hct 32 L MCV MCH MCHC RDW Std Deviation RDW Coeff of Jacqueline Plt Count MPV Immature Gran % (Auto) Neut % (Auto) Lymph % (Auto) [place] % (Auto) Eos % (Auto) Baso % (Auto) Neut # (Auto) Lymph # (Auto) [place] # (Auto) Eos # (Auto) Baso # (Auto) Immature Gran # (Auto) PT INR APTT PTT Ratio Sample Site L Brachial POC pH 7.31 L POC pCO2 67 H POC pO2 82 POC HCO3 34 H POC Total CO2 36 H POC Base Excess 7.0 H ABG pH (Temp Correct) 7.321 L ABG pCO2 (Temp Corrct 65 H POC ABG pO2 at Pt Temp 79 POC ABG O2 Sat 94.0 Jose Test NA O2 Delivery Device BIPAP POC O2 Rate 20 POC FiO2 30 IPAP 15 POC Sodium 144 Sodium POC Potassium 4.4 Potassium POC Chloride Chloride Carbon Dioxide Anion Gap POC Anion Gap POC BUN BUN Creatinine POC Creatinine Est Cr Clr Drug Dosing Est GFR ( Amer) Est GFR (Non-Af Amer) BUN/Creatinine Ratio Glucose POC Glucose 143 H POC Glucose (other) Estimat Average Glucose Hemoglobin A1c Calcium POC Ioniz Calcium Liss Magnesium Total Bilirubin AST ALT Alkaline Phosphatase Troponin I High Sens 78.5 H* D B-Natriuretic Peptide Total Protein Albumin Globulin Albumin/Globulin Ratio TSH Urine Color Urine Appearance Urine pH Ur Specific [place] Urine Protein Urine Glucose (UA) Urine Ketones Urine Blood Urine Nitrite Urine Bilirubin Urine Urobilinogen Ur Leukocyte Esterase Urine WBC (Auto) Urine RBC (Auto) U Hyaline Cast (Auto) U Epithel Cells (Auto) Urine Bacteria (Auto) Nasal Screen MRSA (PCR) Adenovirus (PCR) B. pertussis DNA (PCR) B.parapertussis DNA PCR C. pneumoniae DNA (PCR) Coronavirus OC43 (PCR) Coronavirus HKU1 (PCR) Coronavirus 229E (PCR) SARS-CoV-2 (PCR) Coronavirus NL63 (PCR) Human Metapneumovir PCR Influenza Type A (PCR) Influenza Type B (PCR) M. pneumoniae (PCR) Parainfluenza 1 (PCR) Parainfluenza 2 (PCR) Parainfluenza 3 (PCR) Parainfluenza 4 (PCR) RSV (PCR) Entero/Rhino (PCR) 10/29/23 10/29/23 17:20 Unknown WBC RBC Hgb POC Hgb Hct POC Hct MCV MCH MCHC RDW Std Deviation RDW Coeff of Jacqueline Plt Count MPV Immature Gran % (Auto) Neut % (Auto) Lymph % (Auto) [place] % (Auto) Eos % (Auto) Baso % (Auto) Neut # (Auto) Lymph # (Auto) [place] # (Auto) Eos # (Auto) Baso # (Auto) Immature Gran # (Auto) PT INR APTT PTT Ratio Sample Site POC pH POC pCO2 POC pO2 POC HCO3 POC Total CO2 POC Base Excess ABG pH (Temp Correct) ABG pCO2 (Temp Corrct POC ABG pO2 at Pt Temp POC ABG O2 Sat Jose Test O2 Delivery Device POC O2 Rate POC FiO2 IPAP POC Sodium Sodium POC Potassium Potassium POC Chloride Chloride Carbon Dioxide Anion Gap POC Anion Gap POC BUN BUN Creatinine POC Creatinine Est Cr Clr Drug Dosing Est GFR ( Amer) Est GFR (Non-Af Amer) BUN/Creatinine Ratio Glucose POC Glucose 161 H POC Glucose (other) Estimat Average Glucose Hemoglobin A1c Calcium POC Ioniz Calcium Liss Magnesium Total Bilirubin AST ALT Alkaline Phosphatase Troponin I High Sens B-Natriuretic Peptide Total Protein Albumin Globulin Albumin/Globulin Ratio TSH Urine Color Urine Appearance Urine pH Ur Specific [place] Urine Protein Urine Glucose (UA) Urine Ketones Urine Blood Urine Nitrite Urine Bilirubin Urine Urobilinogen Ur Leukocyte Esterase Urine WBC (Auto) Urine RBC (Auto) U Hyaline Cast (Auto) U Epithel Cells (Auto) Urine Bacteria (Auto) Nasal Screen MRSA (PCR) Positive A Adenovirus (PCR) B. pertussis DNA (PCR) B.parapertussis DNA PCR C. pneumoniae DNA (PCR) Coronavirus OC43 (PCR) Coronavirus HKU1 (PCR) Coronavirus 229E (PCR) SARS-CoV-2 (PCR) Coronavirus NL63 (PCR) Human Metapneumovir PCR Influenza Type A (PCR) Influenza Type B (PCR) M. pneumoniae (PCR) Parainfluenza 1 (PCR) Parainfluenza 2 (PCR) Parainfluenza 3 (PCR) Parainfluenza 4 (PCR) RSV (PCR) Entero/Rhino (PCR) Diagnostic Findings Echocardiogram performed today was limited in quality. However, she does have preserved LV systolic function without notable regional wall motion abnormalities. The right ventricle appeared enlarged and hypokinetic. However, images again were of poor quality. The aortic valve was not imaged. PG Care Time/CCT Total # of Minutes Spent Total Time Spent with Patient: Total time spent is greater than 50% in coordination of care (as documented) at patient's floor/unit and/or counseling patient: Coding Level of Care Code 97099 INT INP/OBS CARE 3/75MIN Diagnoses Bradycardia R00.1 Second degree heart block I44.1 Acute respiratory failure with hypoxia and hypercarbia J96.01; J96.02 Aortic valve stenosis I35.0
[2023-10-30 04:42] LABS: Basophils # (auto) 0.06 K/uL (0.00-0.20); Basophils % (auto) 0.9 %; Eosinophils # (auto) 0.33 K/uL (0.00-0.50); Hematocrit (blood only) 34.4 % (37.0-47.0); Hemoglobin 10.3 g/dl (12.0-16.0); Lymphocytes # (auto) 1.72 K/uL (1.20-3.40); Lymphocytes % (auto) 26.2 %; Mean Corpuscular Hemoglobin 28.1 pg (25.0-34.0); Mean Corpuscular Hgb Conc 29.9 g/dL (32.0-36.0); Mean Platelet Volume 10.5 fL (9.4-12.4); Monocytes # (auto) 0.49 K/uL (0.11-0.59); Monocytes % (auto) 7.5 %; Neutrophils # (auto) 3.96 K/uL (1.40-6.50); Neutrophils % (auto) 60.4 %; Platelet Count 206 K/uL (130-400); RDW Coefficient of Variation 16.5 % (11.5-14.5); RDW Standard Deviation 56.8 fL (36.4-46.3); Red Blood Count 3.66 M/uL (4.20-5.40); White Blood Count 6.56 K/ul (4.8-10.8)
[2023-10-30 04:59] LABS: Albumin Globulin Ratio 0.9 (0.9-2); Albumin Level 3.4 gm/dl (3.4-5.0); BUN Creatinine Ratio 20.6 (10-20); Bilirubin,Total 0.6 mg/dl (0.2-1.0); Calcium 8.8 mg/dl (8.6-10.3); Creatinine Clr Calc Pharmacy 58.7 ml/min; Est GFR (African American) 57.2 ml/min; Est GFR (Non-African American) 49.3 ml/min; Globulin 3.8 gm/dl (2.5-4.0); Magnesium 1.5 mg/dl (1.7-2.4); Potassium 4.4 mmol/L (3.5-5.1); Total Protein 7.2 gm/dl (6.0-8.3)
[2023-10-30 05:26] LABS: INR 1.8 (0.9-1.1); Partial Thromboplastin Ratio 1.1; Partial Thromboplastin Time 29 Seconds (21-31); Prothrombin Time 18.1 Seconds (9.0-12.0)
[2023-10-30] MEDS: MAGNESIUM SULFATE / D5W 1 GM/100 ML BAG IV SCH (06:31)
[2023-10-30] MEDS ORDERED: ALBUT/IPRATROP 3MG/0.5MG NEB 3 ML VIAL NEB PRN (07:43)
--- NOTE | 2023-10-30 08:05 | Hospitalist Progress Note ---
Date of Service October 30, 2023 Assessment & Plan (1) Acute kidney injury superimposed on CKD: (2) Bradycardia: (3) Second degree heart block: (4) Obstructive sleep apnea: (5) Acute UTI (urinary tract infection): (6) Acute respiratory failure with hypoxia and hypercarbia: (7) History of pulmonary embolus (PE): Plan Assessment & Plan (1) Admitted to intensive care unit: (2) Bradycardia: (3) Second degree heart block: (4) Acute respiratory failure with hypoxia and hypercarbia: (5) Atrial fibrillation: (6) Obstructive sleep apnea: (7) History of pulmonary embolus (PE): (8) Paroxysmal A-fib: (9) Acute kidney injury superimposed on CKD: Plan 1) Symptomatic intermittent second-degree type II versus third-degree heart block/PAF/hypertension/diastolic CHF- Heart rate remained in the 30s-40s and systolic blood pressure maintained greater than or equal to 130s, Patient admitted to the ICU Transcutaneous pacer pads placed on night of admission, transcutaneous pacing deferred due to Sx improvement Cardiology consulted, recommended permanent pacemaker placement, patient in process of discussing w/ her sister Patient is not on any negative inotropes Holding warfarin, for potential procedure on Tuesday with present INR sub therapeutic at 1.8 Held heparin at this time, as cardiology will be here in about 4 hours, can address anticoagulation postprocedure HS troponin 78.5 <-- 110.4 <-- 86.7, downtrended, discontinued 2) Acute on chronic respiratory failure with hypoxia and hypercapnia/diastolic CHF/obesity hypoventilation syndrome Admitted to the ICU as noted Continued BiPAP initially during ICU stay, resp Sx improved, patient currently off ventilation, on RA, O2Sat 92 Most recent echocardiogram from 03/06 with ejection fraction 60-65% and mild mitral stenosis 3) CIERA superimposed on CKD/hypomagnesemia Creatinine, 1.07 <-- 1.44, (baseline, 0.95 - 1.15) IV fluids as noted Mg, 1.5 (Received 2 g of magnesium sulfate IV from the ED) Recheck laboratories in the AM Chest x-ray shows cardiomegaly, with no signs of CHF 4) Klebsiella aerogenes, UTI From urine culture on 10/18/2023 Unclear if ever treated, consider oral alternative to CFTX Ceftriaxone 2 g IV daily, discontinued 5) Hx of GERD - Stress ulcer prevention, pantoprazole, 40 mg, IV, daily - Hx of GERD Code status: Full DVT prophylaxis: SCDs Disposition: ICU FENGI: Advance diet as tolerated Admission and Anticipated Discharge Date Admission Date: October 29, 2023 Supervising Physician Co-Signing Physician Notes I personally examined the patient and verified marquez points of history and exam, discussed case, and agree with decision making and plan documented by Dr. Wisdom. Patient with improved mentation, she is oriented to self, denies pain or cardiac symptoms, just feels tired. Reviewed with her the recommendations for pacemaker due to persistent bradycardia in setting of heart block. Patient considering at this time but wants to speak with family. When I asked her who makes decisions on her behalf, she said her daughter does, but today mentioned she would like consultation with her sister. On exam, patient morbidly obese, bradycardic in 50s, anterior auscultation of lungs with dimini shed sounds, nontender abdomen, lower extremity edema bilaterally. Medical team will continue to engage patient and family about next steps. Subjective Presented to the ED by EMS, found to be in acute respiratory distress, responded well to nonrebreather oxygen supplied. Also placed on BiPAP, given DuoNeb, with further improvement in breathing, oxygenation. EKG suggested complete heart block, admitted the patient to the ICU for further treatment after speaking with cardiology Dr. Short. Primary Care Provider: [facility] The patient is a 77-year-old female with a past medical history including atrial fibrillation, KENAN, acute on chronic respiratory failure, UTI, hypothyroidism, Mobitz type I second-degree AV block, encephalopathy, diabetes mellitus type 2, chronic use of anticoagulation with warfarin, right foot ulcer, PE, hypomagnesemia, GERD, lower extremity edema and COPD. The patient was transferred from [facility], due to acute respiratory failure and noted low oxygenation. She was initially placed on nonrebreather mask by EMS, and then placed on BiPAP upon arrival to the emergency department. EKG showed heart block, and patient remained in heart rate of 30s to 40s with systolic blood pressure maintained in the 130s. Patient admitted to the ICU, use transcutaneous pacer as needed, and will be seen by cardiology in the AM for likely transvenous pacer. Patient w/ dementia, 2L O2 req at baseline. Patient alert and oriented x 3, in NSR this morning on telemetry. Review of Systems Constitutional: no fever, no chills, no fatigue and no weakness Respiratory: no cough, no dyspnea and no wheezing Cardiovascular: no chest pain and no palpitations Gastrointestinal: no abdominal pain, no nausea, no vomiting, no constipation and no diarrhea/loose stools Genitourinary: no dysuria and no urinary frequency Neurologic: no tingling, no numbness and no headache(s) Physical Exam Constitutional: well developed, + morbidly obese and cooperative Eyes: PERRL Cardiovascular: Rate/Rhythm: regular rhythm and + bradycardic Extremities: normal capillary refill Gastrointestinal (Abdomen): normal bowel sounds, soft, nontender, no hepatosplenomegaly Neurologic: moves all extremities Cranial Nerves: PERRL, normal facial strength, tongue midline and no nystagmus Psychiatric: A+Ox3, euthymic affect Results & Data Results & Data Vital Signs (Past 12 Hours) Vital Signs Temp Pulse Pulse Resp BP BP Pulse Ox 10/30/23 07:50 10/30/23 07:46 10/30/23 07:46 36.8 C 10/30/23 07:10 146/55 H 10/30/23 07:09 38 L 20 93 10/30/23 04:09 49 L 23 92 10/30/23 04:00 137/49 L 10/30/23 03:32 145/57 H 10/30/23 03:24 42 L 19 93 10/30/23 03:00 61 20 88 L 10/30/23 02:00 156/57 H 10/30/23 02:00 50 L 20 87 L 10/30/23 01:32 162/50 H 10/30/23 01:30 52 L 23 91 10/30/23 01:12 37 L 22 91 10/30/23 00:15 50 L 16 94 10/30/23 00:00 46 L 10/29/23 23:40 61 28 H 91 10/29/23 23:00 129/69 10/29/23 23:00 44 L 17 90 10/29/23 22:00 157/62 H 10/29/23 22:00 43 L 21 87 L 10/29/23 21:00 48 L 19 86 L 10/29/23 21:00 154/60 H 10/29/23 20:30 10/29/23 20:07 50 L 18 93 O2 Del Method O2 Flow Rate FiO2 10/30/23 07:50 Nasal Cannula 10/30/23 07:46 Room Air 1 10/30/23 07:46 10/30/23 07:10 10/30/23 07:09 Nasal Cannula 1 10/30/23 04:09 10/30/23 04:00 10/30/23 03:32 10/30/23 03:24 10/30/23 03:00 10/30/23 02:00 10/30/23 02:00 10/30/23 01:32 10/30/23 01:30 10/30/23 01:12 10/30/23 00:15 10/30/23 00:00 10/29/23 23:40 25 10/29/23 23:00 10/29/23 23:00 10/29/23 22:00 10/29/23 22:00 10/29/23 21:00 10/29/23 21:00 10/29/23 20:30 Nasal Cannula 1 10/29/23 20:07 Nasal Cannula 1 Resident Activity Tracking Resident Involvement: Resident Care Provided Care Provided: Adult Hospital Medicine
--- NOTE | 2023-10-30 08:56 | Critical Care Progress Note ---
Date of Service October 30, 2023 Assessment & Plan (1) Second degree heart block: (2) Acute on chronic respiratory failure with hypoxia and hypercapnia: (3) Bradycardia: (4) Atrial fibrillation: (5) Hypothyroidism: (6) DMII (diabetes mellitus, type 2): (7) GERD (gastroesophageal reflux disease): (8) COPD (chronic obstructive pulmonary disease): Plan Impression: 77-year-old female with history of chronic respiratory failure, COPD, atrial fibrillation (anticoagulated on Coumadin), DM type II, hypothyroidism, diastolic heart failure, presents to the ICU with respiratory distress and found to be in second-degree heart block with bradycardia in the 30s. Neuro - Encephalopathyneurostatus appears back to baseline at this time. Encephalopathy resolved. Cardiac - Second-degree AV block with bradycardiapatient with heart rate in the 30s, currently normotensive. - No ST elevation on EKG. Mild elevation of troponin, trend for now. Of note she is anticoagulated on Coumadin -History of bioprosthetic aortic valve. -Appreciate cardiology input. Patient indicates to me this morning that she would be willing to proceed with a pacemaker. Will defer further interventions to cardiology and EP. -Hold AV desire blocking agents. - Hold antihypertensives for now -Continuous monitoring on telemetry. Respiratory - Acute on chronic hypoxic and hypercapnic respiratory failurepatient initially presented with respiratory distress and found to be in second-degree AV block. May be cardiogenic and origin, although patient does have history of COPD, KENAN, diastolic heart failure - Patient does have history of PE but currently anticoagulated on Coumadin. -Patient with a history of BiPAP noncompliance.Will continue with BiPAP as needed. - Continuous monitoring pulse ox. Wean oxygen as tolerated GI - Advance diet as tolerated. RENAL/LYTES - -- CKD Creatinine 1.07 today. Follow urine output closely. Monitor BUNs/creatinine Avoid nephrotoxic medications - Strict I's and O's ENDO - DM type IIcontinue sliding scale/basal bolus. ICU hyperglycemic protocol Hypothyroidismcontinue Synthroid when appropriate HEME - H&H stable, monitor routine CBC ID - -- Recent UTI on 10/17 with Klebsiella aerogenes She was on empiric antibiotics which have been discontinued. LINES/IV ACCESS - Peripheral IVs DVT PROPHYLAXIS - SCDs, INR 1.8 today. Will hold on further Coumadin until decision regarding pacemaker has been made. Patient stable for downgrade to PCU status at this time. Orders have been placed for transfer. Admission and Anticipated Discharge Date Admission Date: October 29, 2023 Subjective Patient denies any complaints currently. Requiring low-flow oxygen via nasal cannula. Heart rate remains in the low 40s. Systolic blood pressures in the 130s. Denies any dizziness, shortness of breath or chest pain. Review of Systems Review of Systems: All systems reviewed & are unremarkable except as noted in HPI & below Physical Exam Constitutional: + obese, cooperative and comfortable; no acute distress Eyes: PERRL, conjunctivae normal, anicteric sclerae ENMT: external ear and nose normal, oropharynx normal Neck: trachea midline, no thyromegaly Respiratory: normal respiratory effort, lungs clear to auscultation Cardiovascular: RRR, no murmur, no edema Gastrointestinal (Abdomen): normal bowel sounds, soft, nontender, no hepatosplenomegaly Musculoskeletal: no cyanosis or clubbing, extremities motor strength 5/5 Skin: Psoriasis noted on right upper extremity, skin is warm and dry Neurologic: PERRL, EOMI, accommodation nl, no face palsy, no dysarthria Psychiatric: A+Ox3, euthymic affect Results & Data Results & Data Vital Signs (Past 12 Hours) Vital Signs Temp Pulse Resp BP BP Pulse Ox O2 Del Method 10/30/23 08:00 51 L 10/30/23 07:50 Nasal Cannula 10/30/23 07:46 Room Air 10/30/23 07:46 36.8 C 10/30/23 07:10 146/55 H 10/30/23 07:09 38 L 20 93 Nasal Cannula 10/30/23 04:09 49 L 23 92 10/30/23 04:00 137/49 L 10/30/23 03:32 145/57 H 10/30/23 03:24 42 L 19 93 10/30/23 03:00 61 20 88 L 10/30/23 02:00 156/57 H 10/30/23 02:00 50 L 20 87 L 10/30/23 01:32 162/50 H 10/30/23 01:30 52 L 23 91 10/30/23 01:12 37 L 22 91 10/30/23 00:15 50 L 16 94 10/30/23 00:00 46 L 10/29/23 23:40 61 28 H 91 10/29/23 23:00 129/69 10/29/23 23:00 44 L 17 90 10/29/23 22:00 157/62 H 10/29/23 22:00 43 L 21 87 L 10/29/23 21:00 48 L 19 86 L 10/29/23 21:00 154/60 H O2 Flow Rate FiO2 10/30/23 08:00 10/30/23 07:50 10/30/23 07:46 1 10/30/23 07:46 10/30/23 07:10 10/30/23 07:09 1 10/30/23 04:09 10/30/23 04:00 10/30/23 03:32 10/30/23 03:24 10/30/23 03:00 10/30/23 02:00 10/30/23 02:00 10/30/23 01:32 10/30/23 01:30 10/30/23 01:12 10/30/23 00:15 10/30/23 00:00 10/29/23 23:40 25 10/29/23 23:00 10/29/23 23:00 10/29/23 22:00 10/29/23 22:00 10/29/23 21:00 10/29/23 21:00 Coding Level of Care Code 82630 SUB INP/OBS CARE 3/50MIN Diagnoses Second degree heart block I44.1 Acute on chronic respiratory failure with hypoxia and hypercapnia J96.21; J96.22 Bradycardia R00.1 Atrial fibrillation I48.91 Hypothyroidism E03.9 DMII (diabetes mellitus, type 2) E11.9 GERD (gastroesophageal reflux disease) K21.9 COPD (chronic obstructive pulmonary disease) J44.9 COPD type: unspecified COPD (8) COPD (chronic obstructive pulmonary disease) COPD type: unspecified COPD Qualified Code(s): J44.9 - Chronic obstructive pulmonary disease, unspecified
[2023-10-30] MEDS ORDERED: cefTRIAXone SODIUM 2,000 MG/50 ML BAG IV SCH (09:00)
--- NOTE | 2023-10-30 12:49 | Cardiology Progress Note ---
Date of Service October 30, 2023 Assessment & Plan (1) Bradycardia: Plan: -demonstrates high degree AV block. -she will discuss a permanent pacemaker with her sister. -will keep Dr. Short informed of her decision. (2) Aortic valvular disorder: Plan: -s/p AVR according to her history. -current echocardiogram very technically limited prohibiting assessment of aortic valve. Admission and Anticipated Discharge Date Admission Date: October 29, 2023 Subjective The patient is resting comfortably in bed without complaints of chest pain, dyspnea, syncope, or presyncope. We did discuss a permanent pacemaker. She would like to discuss this further with her sister. Physical Exam Physical Exam: In general this is an obese white female lying supine in bed without complaints. HEENT exam is negative. Neck is supple with full carotid upstrokes. No obvious bruits. Jugular is pressure is difficult to assess. Cardiovascular exam reveals a regular rhythm with distant heart sounds. No obvious murmurs. Lungs are clear without rales, rhonchi or wheezes. Abdomen is obese without bruits. Extremities reveal intact radial artery pulses bilaterally. Results & Data Vital Signs (Past 12 Hours) Vital Signs Temp Pulse Resp BP BP Pulse Ox O2 Del Method 10/30/23 10:05 48 L 24 123/45 L 89 L 10/30/23 09:02 44 L 15 91 10/30/23 09:02 123/53 L 10/30/23 08:03 76 L 10/30/23 08:00 51 L 10/30/23 07:50 Nasal Cannula 10/30/23 07:46 Room Air 10/30/23 07:46 36.8 C 10/30/23 07:10 146/55 H 10/30/23 07:09 38 L 20 93 Nasal Cannula 10/30/23 04:09 49 L 23 92 10/30/23 04:00 137/49 L 10/30/23 03:32 145/57 H 10/30/23 03:24 42 L 19 93 10/30/23 03:00 61 20 88 L 10/30/23 02:00 156/57 H 10/30/23 02:00 50 L 20 87 L 10/30/23 01:32 162/50 H 10/30/23 01:30 52 L 23 91 10/30/23 01:12 37 L 22 91 O2 Flow Rate 10/30/23 10:05 10/30/23 09:02 10/30/23 09:02 10/30/23 08:03 10/30/23 08:00 10/30/23 07:50 10/30/23 07:46 1 10/30/23 07:46 10/30/23 07:10 10/30/23 07:09 1 10/30/23 04:09 10/30/23 04:00 10/30/23 03:32 10/30/23 03:24 10/30/23 03:00 10/30/23 02:00 10/30/23 02:00 10/30/23 01:32 10/30/23 01:30 10/30/23 01:12 Diagnostic Findings bacteriologist dairy notes 2-1 AV conduction. PG Care Time/CCT Total # of Minutes Spent Total Time Spent with Patient: Total time spent is greater than 50% in coordination of care (as documented) at patient's floor/unit and/or counseling patient: Coding Level of Care Code 53368 SUB INP/OBS CARE 3/50MIN Diagnoses Bradycardia R00.1 Aortic valvular disorder I35.9
[2023-10-30] MEDS: ATROPINE SULFATE 0.1 MG/ML 10ML SYR IV ONE (14:19)
--- NOTE | 2023-10-30 14:41 | Electrocardiogram Report ---
Test Reason : Blood Pressure : / mmHG Vent. Rate : 040 BPM Atrial Rate : 086 BPM P-R Int : 000 ms QRS Dur : 140 ms QT Int : 492 ms P-R-T Axes : 070 097 024 degrees QTc Int : 400 ms Sinus rhythm with 2:1 AV block Right bundle branch block Abnormal ECG When compared with ECG of 09-JUL-2023 15:39, Significant changes have occurred Confirmed by Ramsey Taveras ([id number]) on 10/30/2023 2:40:48 PM [facility] Confirmed By:Ramsey Taveras
[2023-10-30] MEDS: ONDANSETRON INJ 2 MG/ML 2 ML VIAL IV PRN (16:56)
[2023-10-31 05:11] LABS: Basophils # (auto) 0.03 K/uL (0.00-0.20); Basophils % (auto) 0.6 %; Eosinophils # (auto) 0.34 K/uL (0.00-0.50); Eosinophils % (auto) 6.6 %; Hemoglobin 10.3 g/dl (12.0-16.0); Immature Granulocytes # (auto) 0.02 K/uL (0.01-0.20); Immature Granulocytes % (auto) 0.4 %; Lymphocytes # (auto) 1.67 K/uL (1.20-3.40); Lymphocytes % (auto) 32.2 %; Mean Corpuscular Hemoglobin 28.1 pg (25.0-34.0); Mean Corpuscular Hgb Conc 29.4 g/dL (32.0-36.0); Mean Corpuscular Volume 95.6 fL (80.0-100.0); Mean Platelet Volume 10.5 fL (9.4-12.4); Monocytes # (auto) 0.42 K/uL (0.11-0.59); Monocytes % (auto) 8.1 %; Neutrophils % (auto) 52.1 %; Platelet Count 207 K/uL (130-400); RDW Coefficient of Variation 16.4 % (11.5-14.5); RDW Standard Deviation 57.7 fL (36.4-46.3); Red Blood Count 3.66 M/uL (4.20-5.40); White Blood Count 5.18 K/ul (4.8-10.8)
[2023-10-31 05:26] LABS: Albumin Globulin Ratio 0.9 (0.9-2); Albumin Level 3.4 gm/dl (3.4-5.0); BUN Creatinine Ratio 13.2 (10-20); Bilirubin,Total 0.5 mg/dl (0.2-1.0); Creatinine Clr Calc Pharmacy 43.6 ml/min; Est GFR (African American) 39.9 ml/min; Est GFR (Non-African American) 34.5 ml/min; Globulin 3.8 gm/dl (2.5-4.0); Magnesium 2.2 mg/dl (1.7-2.4); Potassium 4.7 mmol/L (3.5-5.1); Total Protein 7.2 gm/dl (6.0-8.3)
[2023-10-31 05:43] LABS: INR 1.8 (0.9-1.1); Partial Thromboplastin Ratio 1.1; Partial Thromboplastin Time 29 Seconds (21-31); Prothrombin Time 18.2 Seconds (9.0-12.0)
--- NOTE | 2023-10-31 12:16 | Hospitalist Progress Note ---
Date of Service October 31, 2023 Assessment & Plan (1) Acute kidney injury superimposed on CKD: (2) Bradycardia: (3) Second degree heart block: (4) Obstructive sleep apnea: (5) Acute UTI (urinary tract infection): (6) Acute respiratory failure with hypoxia and hypercarbia: (7) History of pulmonary embolus (PE): Plan Assessment & Plan (1) Admitted to intensive care unit: (2) Bradycardia: (3) Second degree heart block: (4) Acute respiratory failure with hypoxia and hypercarbia: (5) Atrial fibrillation: (6) Obstructive sleep apnea: (7) History of pulmonary embolus (PE): (8) Paroxysmal A-fib: (9) Acute kidney injury superimposed on CKD: Plan 1) Symptomatic intermittent second-degree type II versus third-degree heart block/PAF/hypertension/diastolic CHF- Heart rate remained in the 30s-40s and systolic blood pressure maintained greater than or equal to 130s, Patient admitted to the ICU Transcutaneous pacer pads placed on night of admission, transcutaneous pacing deferred due to Sx improvement Cardiology consulted, recommended permanent pacemaker placement, patient in process of discussing w/ her sister Patient is not on any negative inotropes Holding warfarin, for potential procedure on Tuesday with present INR sub therapeutic at 1.8 Held heparin at this time, as cardiology will be here in about 4 hours, can address anticoagulation postprocedure HS troponin 78.5 <-- 110.4 <-- 86.7, downtrended, discontinued 2) Acute on chronic respiratory failure with hypoxia and hypercapnia/diastolic CHF/obesity hypoventilation syndrome Admitted to the ICU as noted Continued BiPAP initially during ICU stay, resp Sx improved, patient resumed BiPAP, Most recent echocardiogram from 03/06 with ejection fraction 60-65% and mild mitral stenosis 3) CIERA superimposed on CKD/hypomagnesemia (resolved) Creatinine, 1.44 <-- 1.07 <-- 1.44, (baseline, 0.95 - 1.15) no IV fluids at this time, IV fluids given earlier during hospital stay Mg, 2.2 <-- 1.5 (Received 2 g of magnesium sulfate IV from the ED) Monitor Cr w/ AM BMP's CXR shows cardiomegaly, with no signs of CHF 4) Klebsiella aerogenes, UTI #resolved From urine culture on 10/18/2023 Unclear if ever treated, consider oral alternative to CFTX Ceftriaxone 2 g IV daily, discontinued 5) Hx of GERD - Stress ulcer prevention, pantoprazole, 40 mg, IV, daily - Hx of GERD Code status: Full DVT prophylaxis: SCDs Disposition: ICU FENGI: Advance diet as tolerated Admission and Anticipated Discharge Date Admission Date: October 29, 2023 Supervising Physician Co-Signing Physician Notes I personally examined the patient and verified all marquez points of history and exam, discussed case, and agree with decision making with Dr Wisdom Sleeping on BiPAP. Appears comfortable. Cardiology input greatly appreciated. Vitals noted, in general she is resting comfortably and in no distress. Exam otherwise as above. Bradycardia/heart blockanticipate pacer. Otherwise as above and per cardiology. Subjective Presented to the ED by EMS, found to be in acute respiratory distress, responded well to nonrebreather oxygen supplied. Also placed on BiPAP, given DuoNeb, with further improvement in breathing, oxygenation. EKG suggested complete heart block, admitted the patient to the ICU for further treatment after speaking with cardiology Dr. Short. Primary Care Provider: [facility] The patient is a 77-year-old female with a past medical history including atrial fibrillation, KENAN, acute on chronic respiratory failure, UTI, hypothyroidism, Mobitz type I second-degree AV block, encephalopathy, diabetes mellitus type 2, chronic use of anticoagulation with warfarin, right foot ulcer, PE, hypomagnesemia, GERD, lower extremity edema and COPD. The patient was transfe rred from [facility], due to acute respiratory failure and noted low oxygenation. She was initially placed on nonrebreather mask by EMS, and then placed on BiPAP upon arrival to the emergency department. EKG showed heart block, and patient remained in heart rate of 30s to 40s with systolic blood pressure maintained in the 130s. Patient admitted to the ICU, use transcutaneous pacer as needed, and will be seen by cardiology in the AM for likely transvenous pacer. Patient w/ dementia, 2L O2 req at baseline. Patient alert and oriented x 3, in NSR this morning on telemetry. Review of Systems Review of Systems: Unobtainable due to cognitive status Patient sleeping, arousable but not cooperative with exam Physical Exam Constitutional: well developed, + morbidly obese and + mechanically ventilated (Patient on BiPap) Eyes: PERRL Respiratory: + labored breathing Auscultation: joelle ath sounds present Cardiovascular: Rate/Rhythm: regular rhythm and + bradycardic Extremities: normal capillary refill Gastrointestinal (Abdomen): normal bowel sounds, soft, nontender, no hepatosplenomegaly Neurologic: moves all extremities Cranial Nerves: normal hearing and able to elevate shoulders bilaterally Results & Data Results & Data Vital Signs (Past 12 Hours) Vital Signs Pulse Resp Pulse Ox O2 Del Method FiO2 10/31/23 10:37 49 L 20 98 35 10/31/23 09:07 BiPAP 35 10/31/23 08:00 54 L 10/31/23 07:47 55 L 20 95 35 10/31/23 03:42 56 L 20 98 35 10/31/23 00:30 52 L 20 94 35
--- NOTE | 2023-10-31 15:46 | Cardiology Progress Note ---
Date of Service October 31, 2023 Assessment & Plan (1) Bradycardia: Plan: -demonstrates high degree AV block. -she agrees to proceed with a permanent pacemaker. -Dr. Short has her on the schedule for tomorrow morning. (2) Aortic valvular disorder: Plan: -s/p AVR according to her history. -current echocardiogram very technically limited prohibiting assessment of aortic valve. Admission and Anticipated Discharge Date Admission Date: October 29, 2023 Subjective The patient is resting comfortably in bed without complaints of chest pain, dyspnea, syncope, or presyncope. She is agreeable to proceed with a permanent pacemaker tomorrow morning. Physical Exam Physical Exam: In general this is an obese white female lying supine in bed without complaints. HEENT exam is negative. Neck is supple with full carotid upstrokes. No obvious bruits. Jugular is pressure is difficult to assess. Cardiovascular exam reveals a regular rhythm with distant heart sounds. No obvious murmurs. Lungs are clear without rales, rhonchi or wheezes. Abdomen is obese without bruits. Extremities reveal intact radial artery pulses bilaterally. Results & Data Vital Signs (Past 12 Hours) Vital Signs Temp Pulse Resp BP Pulse Ox O2 Del Method FiO2 10/31/23 12:00 52 L 18 126/49 L 95 10/31/23 10:37 49 L 20 98 35 10/31/23 09:07 BiPAP 35 10/31/23 09:05 36.8 C 10/31/23 08:03 54 L 20 117/49 L 94 BiPAP 10/31/23 08:00 54 L 10/31/23 07:47 55 L 20 95 35 Diagnostic Findings satellite project site monitor notes sinus bradycardia and episodes of 2:1 AV block. PG Care Time/CCT Total # of Minutes Spent Total Time Spent with Patient: Total time spent is greater than 50% in coordination of care (as documented) at patient's floor/unit and/or counseling patient: Coding Level of Care Code 94557 SUB INP/OBS CARE 3/50MIN Diagnoses Bradycardia R00.1 Aortic valvular disorder I35.9
--- NOTE | 2023-10-31 17:13 | Billing Data ---
Date of Service October 31, 2023 Coding Level of Care Code 25888 SUB INP/OBS CARE
[2023-10-31] MEDS ORDERED: BENZONATATE 100 MG CAPSULE PO PRN (20:06)
[2023-10-31] MEDS: guaiFENesin 600 MG TABCR PO PRN (21:16)
[2023-11-01 06:06] LABS: Partial Thromboplastin Ratio 1.1; Partial Thromboplastin Time 29 Seconds (21-31)
--- NOTE | 2023-11-01 07:56 | Pre Anesthesia Assessment ---
Date of Service November 01, 2023 Pre Sedation Assessment Vital Signs Temp Pulse Pulse Resp BP BP Pulse Ox 11/01/23 04:01 37.2 C 61 18 139/54 L 93 11/01/23 03:00 55 L 24 94 11/01/23 00:00 64 11/01/23 00:00 36.9 C 58 L 18 145/54 H 95 10/31/23 23:11 56 L 22 99 10/31/23 20:36 37.2 C 59 L 16 128/66 95 10/31/23 19:57 10/31/23 16:35 56 L 10/31/23 15:39 36.9 C 67 18 125/65 94 10/31/23 12:00 52 L 18 126/49 L 95 10/31/23 10:37 49 L 20 98 10/31/23 09:07 10/31/23 09:05 36.8 C 10/31/23 08:03 54 L 20 117/49 L 94 10/31/23 08:00 54 L O2 Del Method O2 Flow Rate FiO2 11/01/23 04:01 Nasal Cannula 2 11/01/23 03:00 30 11/01/23 00:00 11/01/23 00:00 BiPAP 10/31/23 23:11 30 10/31/23 20:36 Nasal Cannula 1 10/31/23 19:57 Nasal Cannula 1 10/31/23 16:35 10/31/23 15:39 Nasal Cannula 1 10/31/23 12:00 10/31/23 10:37 35 10/31/23 09:07 BiPAP 35 10/31/23 09:05 10/31/23 08:03 BiPAP 10/31/23 08:00 Cardiovascular + bradycardic Respiratory + respiratory effort normal Pre-Sedation Airway Assessment Smoking Status: Never smoker Hx Sleep Apnea: Yes Hx Difficult Intubation: No Short, Thick Neck: Yes Thyromental Distance: > or= 3.5 Finger Breadths Oral Cavity: + WNL Mallampati Class: III ASA: ASA3 Procedure Planning Contraindications for Sedation: none Current Medications Reviewed: Yes Notes The planned sedation has been discussed with the patient. Informed Consent was obtained. I have identified the patient, determined the appropriateness of s edation and have assessed the patient immediately prior to the procedure. All medicine(s) and interventions are by my order.
[2023-11-01] MEDS: LIDOCAINE 1% LOCAL 20 ML VIAL ONE ×2 (08:58→09:00)
[2023-11-01] MEDS: WATER, STERILE FOR INJ 10 ML VIAL ONE (08:58)
[2023-11-01] MEDS: diphenhydrAMINE 50 MG/ML VIAL ONE (08:58)
[2023-11-01] MEDS: ceFAZolin 330 MG/ML 1 GM VIAL ONE ×2 (08:58→08:59)
[2023-11-01] MEDS: BUPIVACAINE 0.25% PF 30 ML VIAL ONE (08:58)
[2023-11-01] MEDS: VANCOMYCIN HCL 1000MG/20ML VIAL ONE (08:59)
[2023-11-01] MEDS: fentaNYL citrate PF 100 MCG/2 ML VIAL ONE (09:25)
--- NOTE | 2023-11-01 09:41 | Electrophysiology Report ---
Date of Service November 01, 2023 Electrophysiology Procedure Electrophysiology Procedure Report Procedure performed: Implantation of dual-chamber permanent pacemaker with left bundle pacing lead Staff mechanism inspector: Wally Short MD Indication: The patient is a 77-year-old woman with a history of a bioprosthetic aortic valve replacement who presented to the hospital with respiratory failure and high-degree AV block. The patient has suffered from symptomatic bradycardia as result. There were no reversible causes. She was felt to be a good candidate for a permanent pacemaker due to symptomatic nonreversible AV node dysfunction. A dual-chamber device was selected as she is currently in sinus rhythm which to maintain AV synchrony. Procedure in detail: The patient was informed of the risks benefits and alternatives to the intended procedure and she wished to proceed. She was taken to the electrophysiology suite in a fasting state. A preoperative antibiotic had been administered. The patient was monitored electrocardiographically throughout today's procedure and conscious sedation was administered per protocol. The left upper pectoral area is prepped and draped in usual sterile fashion. This area was anesthetized using subcutaneous administration of a xylocaine solution. An incision was made at this site and carried down to the prepectoralis fascia using sharp dissection. Electrocautery was also employed for dissection as well as for hemostasis. A device pocket was fashioned tissues above the pectoralis muscle. Subsequent to this maneuver the left axillary vein was accessed using modified Seldinger technique. A sheath was placed over guidewire and used facilitate passage of a catheter for mapping of the interventricular septum. Once an appropriate location was identified a pacing lead was advanced into the interventricular septum until the appropriate electrophysiologic characteristics were obtained. At this point the guiding catheter was removed. The proximal portion lead was then sutured to prepectoralis fascia using nonabsorbable suture. A sheath was placed over the remaining guidewire and used facilitate passage of the pacing lead to the right atrium under fluoroscopic guidance. Adequate sensing threshold parameters were obtained prior to active fixation of this lead to the endocardial surface. The proximal portion lead was then sutured to prepectoralis fascia using nonabsorbable suture. The device pocket was irrigated with antibiotic solution. The leads were then attached to the device. The device and leads were then placed in the pocket and pocket was closed in 3 layers of absorbable suture. Steri-Strips and sterile dressing were applied. The device was tested noninvasively prior to conclusion the procedure. The patient tolerated procedure well there no immediate complications. Equipment used: New pulse generator: [employer]. Model number: [id number] serial number [id number] Right atrial lead: [employer]. Model number: [id number] serial number [id number] Right ventricular lead: [employer]. Model number: [id number] serial number [id number] Measured data: Right atrial lead: P-waves measured 3.4 mV. Pacing threshold was 1.75 volts at 0.4 milliseconds with a pacing impedance of 627 Ohms Right ventricular lead: R-waves measured 12.9 mV. Pacing threshold was 0.5 volts at 0.4 milliseconds with a pacing impedance of 703 Ohms Impression: Successful implantation of dual-chamber permanent pacemaker with left bundle pacing lead [facility] Electrophysiology codes Pacing Procedure 1: Pacin Insert/Replace Pacer A & V PG Moderate Sedation Codes Moderate Sedation Codes Procedure 1: Sedation/Anesthesia: 11997 Mod Sedation by the same physician;Init15 Min Child Age 5 & Up Procedure 2: Sedation/Anesthesia: 72036 Mod Sedation by the same physician; Ea [id number] Minutes
[2023-11-01] MEDS ORDERED: ACETAMINOPHEN 325 MG TAB PO PRN (09:42)
--- NOTE | 2023-11-01 09:42 | Post Anesthesia Assessment ---
Date of Service November 01, 2023 Post Sedation Assessment Vital Signs Temp Pulse Pulse Resp BP BP Pulse Ox 11/01/23 08:08 69 16 142/58 H 97 11/01/23 07:30 11/01/23 07:30 36.8 C 65 16 140/47 L 96 11/01/23 06:48 63 11/01/23 04:01 37.2 C 61 18 139/54 L 93 11/01/23 03:00 55 L 24 94 11/01/23 00:00 64 11/01/23 00:00 36.9 C 58 L 18 145/54 H 95 10/31/23 23:11 56 L 22 99 10/31/23 20:36 37.2 C 59 L 16 128/66 95 10/31/23 19:57 10/31/23 16:35 56 L 10/31/23 15:39 36.9 C 67 18 125/65 94 10/31/23 12:00 52 L 18 126/49 L 95 10/31/23 10:37 49 L 20 98 O2 Del Method O2 Flow Rate FiO2 11/01/23 08:08 Nasal Cannula 4 11/01/23 07:30 Nasal Cannula 2 11/01/23 07:30 Nasal Cannula 2 11/01/23 06:48 11/01/23 04:01 Nasal Cannula 2 11/01/23 03:00 30 11/01/23 00:00 11/01/23 00:00 BiPAP 10/31/23 23:11 30 10/31/23 20:36 Nasal Cannula 1 10/31/23 19:57 Nasal Cannula 1 10/31/23 16:35 10/31/23 15:39 Nasal Cannula 1 10/31/23 12:00 10/31/23 10:37 35 Recovery Score Activity: Moves 4 extremities Respiration: Deep Breath/Cough Circulation: +/-20% PreAnes Value Consciousness: Fully Awake Oxygen Saturation: O2 needed for >90% Discharge Sedation Level of Care: Fast Track Phase II Post Sedation Plan On clinical assessment, the patient appears to have tolerated the sedation without complications. Patient is recovering as anticipated. Patient will continue to be monitored by nursing and may be discharged when sedation discharge criteria are met per below protocol. Upon Completions of procedure up to 15 minutes continue every 5 minute vital signs and the P.A.R. score; then discharge to a Phase I or Fast Track to Phase II per the following guidelines: * Discharge Patient to appropriate Phase II area if PAR is 8 or greater or return to pre- procedure baseline. The post - procedure orders will be as directed. * If PAR score is less than 8 or not return to pre-procedure baseline then patient will follow Phase I monitoring till PAR is reached for Phase II. The Phase I may be done in procedure room or may call to secure a Phase I area. * If naloxone or flumazenil are used for reversal, hold in Phase I for continued monitoring from when last reversal dose was given for a minimum of 60 minutes or longer pending the nurse and/or physician discretion of patient condition before discharge to Phase II. Please call the Sedation Physician to re-evaluate and complete post-note for discharge to Phase II area. Do NOT discharge from procedure sedation or Phase 1 until post- sedation evaluation note is complete by procedure /sedation MD Sedation Discharge Instructions to be given to the patient at discharge to home.
[2023-11-01] MEDS: ceFAZolin 1000MG 1,000 MG/7.5 ML SYR IV ONE (16:31)
--- NOTE | 2023-11-01 17:37 | XRay Report ---
XR chest 1V portable CLINICAL HISTORY: post op pacemaker TECHNIQUE: Single frontal radiograph of the chest was obtained. Comparison: Comparison is made to chest radiograph 10/29/2023 FINDINGS: Interval placement of a pacemaker with the leads in satisfactory position. Median sternotomy wires ar e unchanged. Cardiomegaly is noted. The lungs are clear apart from mild pulmonary vascular congestion . No evidence of pleural effusion or pneumothorax. IMPRESSION: Interval placement of a pacemaker with the leads in satisfactory position. No evidence of pneumothora x. Pulmonary vascular congestion is noted. ACT 112: Negative or not required by law. Electronically signed by: Jese Oviedo M.D. 11/01/2023 5:36 PM
--- NOTE | 2023-11-01 19:36 | Hospitalist Progress Note ---
Date of Service November 01, 2023 Assessment & Plan (1) Acute kidney injury superimposed on CKD: (2) Bradycardia: (3) Second degree heart block: (4) Obstructive sleep apnea: (5) Acute UTI (urinary tract infection): (6) Acute respiratory failure with hypoxia and hypercarbia: (7) History of pulmonary embolus (PE): Plan Assessment & Plan (1) Admitted to intensive care unit: (2) Bradycardia: (3) Second degree heart block: (4) Acute respiratory failure with hypoxia and hypercarbia: (5) Atrial fibrillation: (6) Obstructive sleep apnea: (7) History of pulmonary embolus (PE): (8) Paroxysmal A-fib: (9) Acute kidney injury superimposed on CKD: Plan 1) Symptomatic intermittent second-degree type II versus third-degree heart block/PAF/hypertension/diastolic CHF- Now status post pacer. Appears to have stabilized. 2) Acute on chronic respiratory failure with hypoxia and hypercapnia/diastolic CHF/obesity hypoventilation syndrome Overall stable in this regard. Continue current treatment. 3) CIERA superimposed on CKD/hypomagnesemia (resolved) Creatinine, 1.44 <-- 1.07 <-- 1.44, (baseline, 0.95 - 1.15) Overall stable continue to follow 4) Klebsiella aerogenes, UTI #resolved From urine culture on 10/18/2023 Unclear if ever treated, consider oral alternative to CFTX Ceftriaxone 2 g IV daily, discontinued 5) Hx of GERD - Stress ulcer prevention, pantoprazole, 40 mg, IV, daily - Hx of GERD Code status: Full DVT prophylaxis: SCDs Disposition: PCUPT/OT eval and treatwhile from a medical standpoint she is likely to be stable for discharge by tomorrow; it is quite likely she will need rehab based on her assessment of her ability to get aroundobviously awaiting PT input in this regard first Admission and Anticipated Discharge Date Admission Date: October 29, 2023 Subjective feeling okay just weak. Notes that she is having a hard time getting around. Feels like this is different than what she was feeling with her bradycardia. Agrees that it may just be an overall global weakness. Agrees that PT consult may be helpful. Review of Systems Review of Systems: All systems reviewed & are unremarkable except as noted in HPI & below Physical Exam Physical Exam: In general she is awake alert pleasant no distress. HEENT normocephalic atraumatic mucous membranes moist. Breathing unlabored no accessory muscle use good effort. Skin without rashes pallor or icterus. Neuro without focal deficits. Results & Data Results & Data Vital Signs (Past 12 Hours) Vital Signs Temp Pulse Pulse Resp BP BP Pulse Ox 11/01/23 16:47 79 158/62 H 11/01/23 16:00 64 11/01/23 15:00 98.6 F 64 16 158/68 H 97 11/01/23 13:01 153/82 H 11/01/23 13:00 74 20 95 11/01/23 12:03 80 21 11/01/23 12:02 151/88 H 11/01/23 11:45 91 H 14 93 11/01/23 11:30 78 21 94 11/01/23 11:24 73 22 93 11/01/23 11:16 158/79 H 11/01/23 11:12 75 22 93 11/01/23 11:01 155/70 H 11/01/23 10:54 75 18 94 11/01/23 10:48 82 23 95 11/01/23 10:47 164/61 H 11/01/23 10:45 84 25 H 95 11/01/23 10:30 82 18 96 11/01/23 10:12 97.9 F 81 14 129/75 95 11/01/23 10:05 66 18 152/60 H 96 11/01/23 09:50 67 18 167/75 H 96 11/01/23 08:08 69 16 142/58 H 97 O2 Del Method O2 Flow Rate 11/01/23 16:47 11/01/23 16:00 11/01/23 15:00 Nasal Cannula 2 11/01/23 13:01 11/01/23 13:00 Nasal Cannula 4 11/01/23 12:03 11/01/23 12:02 11/01/23 11:45 Nasal Cannula 4 11/01/23 11:30 11/01/23 11:24 11/01/23 11:16 11/01/23 11:12 11/01/23 11:01 11/01/23 10:54 11/01/23 10:48 11/01/23 10:47 11/01/23 10:45 Nasal Cannula 4 11/01/23 10:30 11/01/23 10:12 Nasal Cannula 4 11/01/23 10:05 Oxymask 6 11/01/23 09:50 Oxymask 6 11/01/23 08:08 Nasal Cannula 4 PG Care Time/CCT Total # of Minutes Spent Total Time Spent with Patient: Total time spent is greater than 50% in coordination of care (as documented) at patient's floor/unit and/or counseling patient: Coding Level of Care Code 94279 SUB INP/OBS CARE 2/35MIN Diagnoses Acute kidney injury superimposed on CKD N17.9; N18.9 Bradycardia R00.1 Second degree heart block I44.1 Obstructive sleep apnea G47.33 Acute UTI (urinary tract infection) N39.0 Acute respiratory failure with hypoxia and hypercarbia J96.01; J96.02 History of pulmonary embolus (PE) Z86.711
--- NOTE | 2023-11-01 20:35 | Cardiology Progress Note ---
Date of Service November 01, 2023 Assessment & Plan (1) Bradycardia: Plan: s/p dual chamber medtronoic pacemaker No evident complication (2) Aortic valvular disorder: Plan: -s/p AVR according to her history. -current echocardiogram very technically limited prohibiting assessment of aortic valve. Plan OK for discharge tomorrow from cardiology standpoint. Restrictions listed in discharge instructions I will arrange f/u in our clinic continue warfarin Admission and Anticipated Discharge Date Admission Date: October 29, 2023 Subjective Patient feeling well. Denies any pain at the implant site Physical Exam Physical Exam: Alert answers questions appropriately Normal respiratory effort Device site without hematoma or drainage Results & Data Vital Signs (Past 12 Hours) Vital Signs Temp Pulse Pulse Resp BP BP Pulse Ox 11/01/23 20:16 63 25 H 98 11/01/23 20:11 11/01/23 20:02 37.1 C 62 20 174/72 H 98 11/01/23 16:47 79 158/62 H 11/01/23 16:00 64 11/01/23 15:00 37.0 C 64 16 158/68 H 97 11/01/23 13:01 153/82 H 11/01/23 13:00 74 20 95 11/01/23 12:03 80 21 11/01/23 12:02 151/88 H 11/01/23 11:45 91 H 14 93 11/01/23 11:30 78 21 94 11/01/23 11:24 73 22 93 11/01/23 11:16 158/79 H 11/01/23 11:12 75 22 93 11/01/23 11:01 155/70 H 11/01/23 10:54 75 18 94 11/01/23 10:48 82 23 95 11/01/23 10:47 164/61 H 11/01/23 10:45 84 25 H 95 11/01/23 10:30 82 18 96 11/01/23 10:12 36.6 C 81 14 129/75 95 11/01/23 10:05 66 18 152/60 H 96 11/01/23 09:50 67 18 167/75 H 96 O2 Del Method O2 Flow Rate FiO2 11/01/23 20:16 30 11/01/23 20:11 Nasal Cannula 2 11/01/23 20:02 Nasal Cannula 2 11/01/23 16:47 11/01/23 16:00 06/18/24 15:00 Nasal Cannula 2 11/01/23 13:01 11/01/23 13:00 Nasal Cannula 4 11/01/23 12:03 11/01/23 12:02 11/01/23 11:45 Nasal Cannula 4 11/01/23 11:30 11/01/23 11:24 11/01/23 11:16 11/01/23 11:12 11/01/23 11:01 11/01/23 10:54 11/01/23 10:48 11/01/23 10:47 11/01/23 10:45 Nasal Cannula 4 11/01/23 10:30 11/01/23 10:12 Nasal Cannula 4 11/01/23 10:05 Oxymask 6 11/01/23 09:50 Oxymask 6 Diagnostic Findings Chest xray with good lead position and no PTX Device interrogation: normal lead function. Mostly atrial pacing. Minimal ventricular pacing
[2023-11-02 05:36] LABS: Basophils # (auto) 0.02 K/uL (0.00-0.20); Basophils % (auto) 0.4 %; Eosinophils # (auto) 0.33 K/uL (0.00-0.50); Eosinophils % (auto) 6.3 %; Hematocrit (blood only) 34.1 % (37.0-47.0); Hemoglobin 10.2 g/dl (12.0-16.0); Immature Granulocytes # (auto) 0.01 K/uL (0.01-0.20); Immature Granulocytes % (auto) 0.2 %; Lymphocytes # (auto) 1.26 K/uL (1.20-3.40); Mean Corpuscular Hemoglobin 28.1 pg (25.0-34.0); Mean Corpuscular Hgb Conc 29.9 g/dL (32.0-36.0); Mean Corpuscular Volume 93.9 fL (80.0-100.0); Mean Platelet Volume 9.2 fL (9.4-12.4); Monocytes # (auto) 0.37 K/uL (0.11-0.59); Monocytes % (auto) 7.1 %; Neutrophils # (auto) 3.25 K/uL (1.40-6.50); Platelet Count 194 K/uL (130-400); RDW Coefficient of Variation 15.3 % (11.5-14.5); Red Blood Count 3.63 M/uL (4.20-5.40); White Blood Count 5.24 K/ul (4.8-10.8)
[2023-11-02 05:52] LABS: BUN Creatinine Ratio 13.9 (10-20); Creatinine Clr Calc Pharmacy 75.9 ml/min; Est GFR (African American) 82.5 ml/min; Est GFR (Non-African American) 71.2 ml/min; Potassium 4.3 mmol/L (3.5-5.1)
--- NOTE | 2023-11-02 07:51 | Discharge Summary ---
Date of Service November 02, 2023 Admission HPI Per Admitting Provider The patient is a 77-year-old female with a past medical history including atrial fibrillation, KENAN, acute on chronic respiratory failure, UTI, hypothyroidism, Mobitz type I second-degree AV block, encephalopathy, PE, diabetes mellitus type 2, chronic use of anticoagulation with warfarin, right foot ulcer, PE, hypomagnesemia, GERD, lower extremity edema and COPD. The patient was transferred from [facility], due to acute respiratory failure and noted low oxygenation. She was initially placed on nonrebreather mask by EMS, and then placed on BiPAP upon arrival to the emergency department. EKG showed heart block, and patient remained in heart rate of 30s to 40s with systolic blood pressure maintained in the 130s. Plans admit the patient to the ICU, use transcutaneous pacer as needed, and will be seen by cardiology in the a.m. for likely transvenous pacer Admission Exam Per Admitting Provider The patient is awake, responsive, well developed and well nourished, normocephalic and atraumatic, lying in bed and in no acute distress. HEENT--PERRL, EOMI, mucous membranes and oropharynx normal Neck--supple. No JVD. No bruits. Thyroid normal, trachea midline, no adenopathy. Heart--bradycardic. No murmurs, rubs or gallops. Lungs--clear bilaterally, no respiratory distress, no accessory muscle use. Abdomen--normal bowel sounds and soft. Nontender. Nondistended. Morbidly obese Extremities--no cyanosis or clubbing. No edema. Dermatologic--normal skin turgor, normal color, no abnormal lymph nodes, no rash. Neurologic--cranial nerves II through XII grossly intact. Rheumatologic--limited exam Psychiatric--normal affect. Principal Diagnosis Heart block Discharge Exam Constitutional well developed, + morbidly obese, cooperative and + mechanically ventilated (Patient on BiPap) Eyes PERRL Respiratory + labored breathing Auscultation: breath sounds present Cardiovascular Rate/Rhythm: regular rhythm and + bradycardic Extremities: normal capillary refill Gastrointestinal (Abdomen) normal bowel sounds, soft, nontender, no hepatosplenomegaly Skin + rash (patches on patient's body consistent with ringworm) and + lesion Neurologic moves all extremities Cranial Nerves: PERRL, normal facial strength, tongue midline, normal hearing, able to elevate shoulders bilaterally and no nystagmus Psychiatric A+Ox3, euthymic affect Discharge Data Allergies Allergy/AdvReac Type Severity Reaction Status Date / Time No Known Allergies Allergy Mild Verified 10/29/23 02:43 Consultations 10/29/23 02:11 ED Decision to Admit Stat 10/29/23 04:18 Consult Hyperion Analyst Routine 10/30/23 08:52 Consult Cardiology Routine Procedures Performed Operation Date: 11/01/23 08:00 Actual Procedures p Pacer with A/V Leads (Dual) - Wally Short MD s Venogram, Unilateral - Wally Short MD Ordered Studies 11/01/23 07:15 EP Lab Images for PACS ONCE Hospital Course (1) Acute kidney injury superimposed on CKD: (2) Bradycardia: (3) Second degree heart block: (4) Obstructive sleep apnea: (5) Acute UTI (urinary tract infection): (6) Acute respiratory failure with hypoxia and hypercarbia: (7) History of pulmonary embolus (PE): Plan Assessment & Plan (1) Admitted to intensive care unit: (2) Bradycardia: (3) Second degree heart block: (4) Acute respiratory failure with hypoxia and hypercarbia: (5) Atrial fibrillation: (6) Obstructive sleep apnea: (7) History of pulmonary embolus (PE): (8) Paroxysmal A-fib: (9) Acute kidney injury superimposed on CKD: Plan 1) Symptomatic intermittent second-degree type II versus third-degree heart block/PAF/hypertension/diastolic CHF/ S/P permanent pacemaker placement Heart rate remained in the 30s-40s and systolic blood pressure maintained greater than or equal to 130s, Patient admitted to the ICU Transcutaneous pacer pads placed on admission, transcutaneous pacing deferred due to Sx improvement Cardiology consulted, recommended permanent pacemaker placement, patient agreed to operation Now s/p permanent pacemaker placement Held warfarin, as inpatient before placemaker operation, last INR subtherapeutic at 1.8 on 10/31/23 HS troponin 78.5 <-- 110.4 <-- 86.7, downtrended, discontinued Patient discharged and will have cardiology F/U appt in a few wks - Restart patient's home warfarin 2) Acute on chronic respiratory failure with hypoxia and hypercapnia/diastolic CHF/obesity hypoventilation syndrome Admitted to the ICU as noted Continued BiPAP initially during ICU stay, respiratory Sx improved, patient r esumed BiPAP, Most recent echocardiogram from 03/06 with ejection fraction 60-65% and mild mitral stenosis 3) CIERA superimposed on CKD/hypomagnesemia (resolved) Creatinine, 0.79 <-- 1.44 <-- 1.07 <-- 1.44, (baseline, 0.95 - 1.15) improved during hospital stay no IV fluids at this time, IV fluids given earlier during hospital stay Mg, 2.2 <-- 1.5 (Received 2 g of magnesium sulfate IV from the ED) CXR shows cardiomegaly, with no signs of CHF 4) Klebsiella aerogenes, UTI #resolved From urine culture on 10/18/2023 Unclear if ever treated, consider oral alternative to CFTX Ceftriaxone 2 g IV daily, discontinued 5) Hx of GERD - Stress ulcer prevention, pantoprazole, 40 mg, IV, daily --> discontinued at discharge - Hx of GERD, continued home famotidine, 20 mg, PO, BID Total Time Total Time Spent Total Time Spent (In Minutes): <30 Discharge Plan Discharge Items Patient Disposition: Transfer Intermediate Fac Reason For Visit: HEART BLOCK NEEDING PACER,ACITE RESP FAILURE Discharge Diagnosis: Heart block Activity: Resume your previous activity Lifting: No more than 10 pounds Lifting Comment: No lifting left arm above shouler or behind neck for 6 weeks Bathing: Keep incision dry Bathing Comment: Keep wound dry and steri-strip intact until f/u next week Non-emergency contact: Primary Care Provider and Associate Curator Call non-emergency contact if: you have any medication questions, your symptoms worsen and your pain is worsening Follow-up/Referrals: [facility] [Primary Care Provider] - Diet: Heart Healthy Addtl Attending Provider Instructions: You were admitted to the hospital for weakness, fatigue, bradycardia. You were treated with implantation of transvenous pacemaker. A discharge summary will be sent to your primary care physician to ensure continuity of care. Please bring this discharge summary with you to your next office appointment so that your provider can review it at that time. Follow-up appointments: We have requested a follow-up appointment with your primary care physician and cardiology within one week of discharge. Please call their office if you do not hear from them. Keep all your follow-up appointments as already scheduled. If you cannot make an appointment, notify your provider. Medications: Your medication list has been reviewed and reconciled upon discharge to ensure accuracy and continuity of care. An updated list of all your medications is included with your hospital discharge paperwork. Please review this list closely, and make note of any changes. Take your medications as instructed; do not skip a dose of your medicines. Make sure all of your doctors know every medicine you are taking (including xkgs-nsn-gcoxvvo medicines, vitamins, and supplements). Call your primary care provider before taking any new medicines (including jpea-[id number]-huhpujq medicines, vitamins, and supplements), because some of these may interact with your current medications, or may make your symptoms worse. Tell your primary care provider if you cannot afford your medications. CONTACT YOUR PRIMARY CARE PROVIDER if you experience any of the following: feeling like you're going to pass out shortness of breath, weakness, excessive fatigue Difficulty following your treatment plan, or difficulty taking medications CALL 911 OR GO TO THE EMERGENCY DEPARTMENT if you experience any of the following: Sudden, severe abdominal pain or nausea/vomiting Severe chest pain, or chest pain that radiates (moves) to your jaw or arm Sudden, severe shortness of breath or difficulty breathing Thank you for allowing us to participate in your care Pending Studies at Discharge: No Stand-Alone Forms: My [employer], Smoking Cessation Skilled Items Patient informed of condition?: Yes DNR: No Discharge Level of Care: Skilled Communicable Disease: No Discharge Prognosis: Stable Lines: None Urinary Catheter: Yes Medications and DC Order Prescriptions: Continued atorvastatin 20 mg tablet 20 mg PO HS donepezil 5 mg tablet 5 mg PO DAILY multivitamin Tablet 1 tab PO DAILY sennosides 8.6 mg Tablet 17.2 mg PO CQWK acetaminophen [Tylenol] 325 mg Tablet 650 mg PO Q6 PRN (Reason: Fever Or Pain) omega-3 fatty acids 1,000 mg Capsule 1,000 mg PO BID olanzapine 2.5 mg tablet 2.5 mg PO TID warfarin 4 mg Tablet 4 mg PO HS famotidine 20 mg tablet 20 mg PO BID cyanocobalamin (vitamin B-12) [Vitamin B-12] 500 mcg Tablet 1,000 mcg PO DAILY insulin aspart U-100 [Novolog U-100 Insulin aspart] 100 unit/mL solution See Rx Instructions .ROUTE .COMPLEX Rx Instructions: INJECT PER SLIDING SCALE, 350-400= 8UNITS, 401-450 =12UNITS, 451-500= 16UNITS, RECHECK BSG IN 2 HRS. insulin aspart U-100 [Novolog U-100 Insulin aspart] 100 unit/mL solution 15 unit subcut TIDWMEAL Rx Instructions: HOLD IF MEAL CONSUMED <50% levothyroxine 50 mcg tablet 50 mcg PO DAILY ferrous sulfate 325 mg (65 mg iron) Tablet 325 mg PO DAILY tobramycin 0.3 % drops 2 drp OPB QID ketoconazole 2 % cream 1 applic TOPICAL .PM SHIFT TUES & FRI Bengay Ultra Strength 4-30-10 % Cream 1 applic TOPICAL QID PRN (Reason: Pain) Rx Instructions: Apply to shoulders & knees insulin glargine [Lantus Solostar U-100 Insulin] 100 unit/mL (3 mL) insulin pen 35 unit SUBCUT DAILY diclofenac sodium 1 % gel 4 g TOPICAL QID Rx Instructions: B/L KNEES melatonin 5 mg Tablet 5 mg PO HS Valera Cough Drops 7.5 mg Lozenge 7 mg PO DIRECTED PRN (Reason: Cough) Trulicity 1.5 mg/0.5 mL pen injector 1.5 mg SUBCUT .Q TUE Discharge Orders: Discharge Order (Routine); Ordered 11/02/23 Ordered By: Wally Wills/Other Patient Handouts: Managing Type 2 Diabetes Admission Data Admit Date/Time: 10/29/23 03:40 Attending Provider: Yash Clemente Admit Provider: Meek Elliott Primary Care Provider: [facility] Other Providers: Meek Elliott; Elijah Doll Kip M.; Fabián Hilton; Ramsey Taveras; Michael Robledo; Teodoro Ramsey; Delmar Hawk Jr; Rodrigo Nicholas; Shavon Morales; Verito Fernández; Wally Avalos; Wally Short; Daniel Ag; Aby Durbin; Telly Cummings; Aruna Louie; Mark Saldana; Javon Fernández; Donny Morrissey; Medardo Lea Other Interventions: Discharge Summary Assessment (RN) Last Done: 11/02/23 13:03 Supervising Physician Co-Signing Physician Notes I personally examined the patient and verified all marquez points of history and exam, discussed case, and agree with decision making with Dr Wisdom feeling ok feels up to return to centre [facility]. no new complaints otherwise. vitals noted nad heent nc at mmm breathing unlabored no accessory muscles good effort Bradycardia/heart blocks/p pacer, stable for return to centre care. possible metabolic encephalopathy present on admission - resolved. Otherwise as above and per cardiology.
[2023-11-02] MEDS: FUROSEMIDE 40 MG/4 ML VIAL IV ONE (08:42)
--- NOTE | 2023-11-02 16:45 | Billing Data ---
Date of Service November 02, 2023 Coding Level of Care Code 27690 IN/OBS DISCH 30 MIN/LESS
== END 2023-11-02 13:58 | DRG 242 ==
LOC: ED 01:19 → SUATTDRO 03:40 → 1E 03:40 → 2E 11-01 18:29

== ENCOUNTER 2024-04-12 01:05 | Inpatient (IN) ==
--- NOTE | 2024-04-12 01:13 | Emergency Department Note ---
Impression & Plan Acute dyspnea, Non-ST elevation UT (NSTEMI), Pulmonary edema, Elevated brain natriuretic peptide (BNP) level, Hypomagnesemia, Acute UTI (urinary tract infection) ED Provider Note HISTORY OF PRESENT ILLNESS: Patient is an 78-year-old female presenting with reported unresponsive episode. Patient presents from [facility]. EMS was called for an unresponsive episode. They report that the patient wears 4 L nasal cannula at baseline. They state that on their arrival she was on a BiPAP and was mentating appropriately and answering questions. She had no complaints for them. On arrival to the ER, the patient denies feeling short of breath or having any chest pain. Denies any abdominal pain, nausea or vomiting. ROS: as above PHYSICAL EXAM: Constitutional: Patient appears in no acute distress. Morbidly obese HENT: Head: Normocephalic and atraumatic. Eyes: EOMI, PERRL Mouth/Throat: Mucous membranes moist. Neck: Trachea midline. Neck supple. Cardiovascular: Paced rhythm. No murmurs, rubs or gallops. Intact distal pulses. Pulmonary/Chest: No respiratory distress. Breath sounds clear and equal bilaterally. Patient placed on 4 L nasal cannula. Diffuse expiratory wheezes in all lung patel. Abdominal: Abdomen soft, no tenderness, rebound or guarding. Musculoskeletal: No edema, tenderness or deformity noted. Skin: Warm and dry. No rash, erythema, pallor or cyanosis Psychiatric: Appropriate mood and affect for situation. Neurological: Alert and keenly responsive. CN II-XII grossly intact, moving all extremities equally and fully. MDM: - Vitals signs showed hypertension, tachypnea and fever. - History obtained via patient and EMS. History as above. - Chronic conditions affecting care: aortic valve disease (s/p valve replacement 2014); CKD; bradycardia (S/p pacemaker placement); paroxysmal Afib; hypothyroidism; hx of PE; DM-2; HTN; HLD - Differential diagnoses include, but are not limited to: Congestive heart failure; acute coronary syndrome; COPD/asthma exacerbation; pulmonary edema; pulmonary embolism; pneumonia; pneumothorax; viral syndrome - Order placed for continuous cardiac monitoring. At this time, monitor showed rate of 70 bpm with paced rhythm, per my interpretation. - External medical records reviewed. Cardiology office visit note dated 11/28/2023 was reviewed. Patient has a history of aortic valve disease and is status post bioprosthetic aortic valve replacement in 2015. She did not have a repeat echocardiogram secondary to difficulties obtaining images at that appointment. - EKG interpreted by myself showed paced rhythm. Rate 72 bpm. QT 378. No acute ischemic changes. - Laboratory workup interpreted by myself showed normal WBC; chronic anemia (Hgb 10.9); therapeutic INR (1.8); hypernatremia (Na 147); normal lactate; hypomagnesemia (Mg 1.4); elevated troponin (52); elevated BNP (225); normal procalcitonin - VBG shows normal pH but hypercarbia with a pCO2 77 mmHg - Viral respiratory panel negative - Blood cultures obtained - Given 2g IV rocephin empirically for sepsis coverage. Given 1 g IV Tylenol for fever. Given 1 g IV magnesium for electrolyte replacement. - CXR shows pulmonary edema with bilateral pleural effusions, per my interpretation. - Given patient's fluid overload status on CXR and her known history of aortic valve disease, did not give patient any fluid resuscitation for sepsis. - Given 40 mg IV lasix. - UA shows evidence of infection - likely source of patient's fever. - Discussion was had with upper caser about patient's case and need for admission - Hospitalist, Dr. Elliott, consulted for admission - Patient admitted to [facility] for further evaluation and management. ASSESSMENT AND PLAN: Diagnosis: acute dyspnea; pulmonary edema; NSTEMI; elevated BNP; hypomagnesemia; acute UTI Plan: admit Past Med/Surg History Problem List (Updated 04/12/24 @ 03:30 by Maria Teresa Simental MD) Acute UTI (urinary tract infection) (Acute) Hypomagnesemia (Acute) Elevated brain natriuretic peptide (BNP) level (Acute) Pulmonary edema (Acute) Non-ST elevation UT (NSTEMI) (Acute) Acute dyspnea (Acute) Aortic valvular disorder Acute kidney injury superimposed on CKD Admitted to intensive care unit Bradycardia (Acute) Second degree heart block (Acute) Acute respiratory failure with hypoxia and hypercarbia (Acute) Atrial fibrillation Obstructive sleep apnea Elevated serum creatinine Acute on chronic respiratory failure with hypoxia and hypercapnia Acute UTI (urinary tract infection) (Acute) Elevated troponin I level (Acute) Respiratory failure (Acute) Hypothyroidism Respiratory failure (Acute) Dementia Mobitz type 1 second degree atrioventricular block History of duodenal ulcer History of pulmonary embolus (PE) Encephalopathy Delirium DMII (diabetes mellitus, type 2) Chronic kidney disease (CKD), stage III (moderate) Anemia Hypomagnesemia Current use of prison anticoagulation DVT prophylaxis Morbid obesity Bilateral lower leg cellulitis Weakness (Acute) Cellulitis (Acute) Failure of outpatient treatment (Acute) Pedal edema (Acute) Anemia (Acute) Foot ulcer, right Encounter for pre-operative examination Pulmonary embolism (Acute) Acute and chronic respiratory failure (Acute) Sepsis (Acute) Morbid obesity Anemia GI bleed Diabetes mellitus with insulin therapy Sepsis Pulmonary embolism Generalized weakness (Acute) Hypoxia (Acute) CIERA (acute kidney injury) (Acute) Elevated troponin (Acute) Hypomagnesemia (Acute) Dehydration (Acute) GERD (gastroesophageal reflux disease) HTN (hypertension) Paroxysmal A-fib Diastolic CHF CKD (chronic kidney disease) stage 3, GFR 30-59 ml/min Aortic valve stenosis Cellulitis of left leg (Acute) Weakness (Acute) Fall (Acute) Lower extremity edema (Acute) Venous stasis ulcers of both lower extremities (Acute) COPD (chronic obstructive pulmonary disease) (Chronic) Medical History Acute on chronic respiratory failure with hypoxia and hypercapnia Hypothyroidism Acute UTI Pneumonia Paroxysmal A-fib GERD (gastroesophageal reflux disease) Morbid obesity with BMI of 50.0-59.9, adult HTN (hypertension) Obstructive sleep apnea Diastolic CHF Pulmonary HTN Aortic valve stenosis Vitamin D deficiency CKD (chronic kidney disease) stage 3, GFR 30-59 ml/min Dyslipidemia Diabetes Surgical History History of cardiac cath Hx of total knee arthroplasty S/P AVR Family History Father Cancer pancreatic cancer Social History Smoking Status: Never smoker Second Hand Exposure: No; Do You Dip or Chew Tobacco: No; Hx Alcohol Use: No Hx Substance Use: No Preferred Language: [place] Communication Ability: Unable Communication Ability Comment: Pt is obtunded on bipap Computer Numerical Control Grinder Required: No Beliefs That Will Affect Care: None marital status: Current Living Situation: Correction Current Living Situation Comment: lives at home with son Feels Safe at Home: Yes Assistive Devices: Wheelchair and Other Allergies Allergies Allergy/AdvReac Type Severity Reaction Status Date / Time No Known Allergies Allergy Mild Verified 11/28/23 10:17 Home Meds Home Medications Medication Instructions Recorded Confirmed acetaminophen 325 mg tablet 650 mg PO Q6 PRN Fever Or Pain 10/29/23 04/12/24 (Tylenol) camphor 4 %-methyl salicylate 30 1 applic topical QID PRN Pain 10/29/23 04/12/24 %-menthol 10 % topical cream (Bengay Ultra Strength) cyanocobalamin (vitamin B-12) 500 1,000 mcg PO DAILY 10/29/23 04/12/24 mcg tablet (Vitamin B-12) diclofenac sodium 1 % topical gel 4 g topical QID 10/29/23 04/12/24 donepezil 5 mg tablet 5 mg PO DAILY 10/29/23 04/12/24 dulaglutide 1.5 mg/0.5 mL 1.5 mg subcut .Q WED 10/29/23 04/12/24 subcutaneous pen injector (Trulicity) famotidine 20 mg tablet 20 mg PO BID 10/29/23 04/12/24 ferrous sulfate 325 mg (65 mg 325 mg PO DAILY 10/29/23 04/12/24 iron) tablet insulin aspart U-100 100 unit/mL 15 unit subcut TIDWMEAL 10/29/23 04/12/24 subcutaneous solution (Novolog U-100 Insulin aspart) insulin glargine 100 unit/mL (3 35 unit subcut DAILY 10/29/23 04/12/24 mL) subcutaneous pen (Lantus Solostar U-100 Insulin) levothyroxine 50 mcg tablet 50 mcg PO DAILY 10/29/23 04/12/24 melatonin 5 mg tablet 5 mg PO HS 10/29/23 04/12/24 multivitamin 1 tab PO DAILY 10/29/23 04/12/24 olanzapine 2.5 mg tablet 2.5 mg PO TID 10/29/23 04/12/24 omega-3 fatty acids 1,000 mg 1,000 mg PO BID 10/29/23 04/12/24 capsule sennosides 8.6 mg tablet 17.2 mg PO DAILY 10/29/23 04/12/24 warfarin 4 mg tablet 4 mg PO HS 10/29/23 04/12/24 amoxicillin 500 mg capsule 2,000 mg PO UD PRN Prophylaxis 04/12/24 04/12/24 gabapentin 100 mg capsule 100 mg PO TID 04/12/24 04/12/24 ipratropium 0.5 mg-albuterol 3 mg 3 ml inhalation QID 04/12/24 04/12/24 (2.5 mg base)/3 mL nebulization soln Results & Data (ED) Vital Signs Vital Signs - 24 hr 04/12/24 00:56 04/12/24 00:56 04/12/24 00:56 Temperature 38.3 C H 38.3 C H Temperature Source Oral Oral Pulse Rate 77 Pulse Rate [Apical] 71 Pulse Rhythm Regular Pulse Rhythm [Apical] Regular Pulse Strength Normal Pulse Strength [Apical] Normal Respiratory Rate 28 H 24 Respiratory Effort / Characteristics Labored Non-Labored Respiratory Depth Normal Normal Respiratory Pattern Regular Regular Blood Pressure 173/76 H Blood Pressure [Right Arm] 166/125 H Blood Pressure Mean 108 Blood Pressure Mean [Right Arm] 138 Blood Pressure Position Sitting Blood Pressure Position [Right Arm] Sitting Pulse Oximetry 97 96 Oxygen Delivery Method Nasal Cannula Nasal Cannula Nasal Cannula Oxygen Flow Rate 4 4 4 Sepsis Recent Fever Within 48 Hours Yes Sepsis New/Unexplained Change in Mental Status Yes Sepsis Action Taken by Nursing Physician Notified 04/12/24 00:56 04/12/24 01:15 04/12/24 01:17 Temperature Temperature Source Pulse Rate 72 71 Pulse Rate [Apical] Pulse Rhythm Pulse Rhythm [Apical] Pulse Strength Pulse Strength [Apical] Respiratory Rate 22 Respiratory Effort / Characteristics Labored Respiratory Depth Normal Respiratory Pattern Regular Blood Pressure Blood Pressure [Right Arm] Blood Pressure Mean Blood Pressure Mean [Right Arm] Blood Pressure Position Blood Pressure Position [Right Arm] Pulse Oximetry 96 Oxygen Delivery Method Nasal Cannula Nasal Cannula Oxygen Flow Rate 4 4 Sepsis Recent Fever Within 48 Hours Sepsis New/Unexplained Change in Mental Status Sepsis Action Taken by Nursing Laboratory Data 04/12/24 01:11 04/12/24 01:11 Lab Results 04/12/24 04/12/24 04/12/24 Range/Units 01:11 01:50 02:18 WBC 7.16 (4.8-10.8) K/ul RBC 3.62 L (4.20-5.40) M/uL Hgb 10.9 L (12.0-16.0) g/dl Hct 36.1 L (37.0-47.0) % MCV 99.7 (80.0-100.0) fL MCH 30.1 (25.0-34.0) pg MCHC 30.2 L (32.0-36.0) g/dL RDW Std Deviation 51.0 H (36.4-46.3) fL RDW Coeff of Jacqueline 14.0 (11.5-14.5) % Plt Count 239 (130-400) K/uL MPV 9.6 (9.4-12.4) fL Immature Gran % (Auto) 0.4 % Neut % (Auto) 70.2 % Lymph % (Auto) 17.9 % [place]ard % (Auto) 9.5 % Eos % (Auto) 1.4 % Baso % (Auto) 0.6 % Neut # (Auto) 5.03 (1.40-6.50) K/uL Lymph # (Auto) 1.28 (1.20-3.40) K/uL [place] # (Auto) 0.68 H (0.11-0.59) K/uL Eos # (Auto) 0.10 (0.00-0.50) K/uL Baso # (Auto) 0.04 (0.00-0.20) K/uL Immature Gran # (Auto) 0.03 (0.01-0.20) K/uL PT 18.7 H (9.0-12.0) Seconds INR 1.8 H (0.9-1.1) VBG pH 7.37 (7.36-7.41) VBG pCO2 77 H (38-50) mmHg VBG pO2 25 mmHg VBG HCO3 45 mmol/L VBG O2 Saturation < 60.0 % VBG Base Excess 15.3 mEq/L Sodium 147 H (136-145) mmol/L Potassium 4.7 (3.5-5.1) mmol/L Chloride 105 (98-107) mmol/L Carbon Dioxide 38 H (21-32) mmol/L Anion Gap 4 (3-11) BUN 18 (6-23) mg/dl Creatinine 1.15 (0.6-1.2) mg/dl Est Cr Clr Drug Dosing 51.8 ml/min eGFR 48.16 BUN/Creatinine Ratio 15.7 (10-20) Glucose 98 (70-99(Fasting)) mg/dl Lactate 0.7 (0.4-2.0) mmol/L Calcium 9.1 (8.6-10.3) mg/dl Magnesium 1.4 L (1.7-2.4) mg/dl Total Bilirubin 0.4 (0.2-1.0) mg/dl AST 20 (13-39) U/L ALT 22 (7-52) U/L Alkaline Phosphatase 86 (34-104) U/L Troponin I High Sens 52.0 H* (0-14) pg/ml B-Natriuretic Peptide 225 H (0-100) pg/ml Total Protein 7.0 (6.0-8.3) gm/dl Albumin 3.3 L (3.4-5.0) gm/dl Globulin 3.7 (2.5-4.0) gm/dl Albumin/Globulin Ratio 0.9 (0.9-2) Procalcitonin 0.06 (0-0.5) ng/ml Urine Color Yellow Urine Appearance Cloudy A (Clear) Urine pH 6.5 (4.5-7.5) Ur Specific [place] 1.017 (1.000-1.030) Urine Protein 1+ H (Negative) Urine Glucose (UA) Negative (Negative) Urine Ketones Negative (Negative) Urine Blood Negative (Negative) Urine Nitrite Positive A (Negative) Urine Bilirubin Negative (Negative) Urine Urobilinogen Negative (Negative) Ur Leukocyte Esterase 2+ H (Negative) Urine WBC (Auto) >50 H (0-5) /hpf Urine RBC (Auto) 0-2 (0-2) /hpf U Hyaline Cast (Auto) 3-5 H (0-2) /lpf U Epithel Cells (Auto) 3-5 H (0-2) /hpf Urine Bacteria (Auto) 4+ H (None Seen) Adenovirus (PCR) Not Detected (NotDetected) B. pertussis DNA (PCR) Not Detected (NotDetected) B.parapertussis DNA PCR Not Detected (NotDetected) C. pneumoniae DNA (PCR) Not Detected (NotDetected) Coronavirus OC43 (PCR) Not Detected (NotDetected) Coronavirus HKU1 (PCR) Not Detected (NotDetected) Coronavirus 229E (PCR) Not Detected (NotDetected) SARS-CoV-2 (PCR) Not Detected (NotDetected) Coronavirus NL63 (PCR) Not Detected (NotDetected) Human Metapneumovir PCR Not Detected (NotDetected) Influenza Type A (PCR) Not Detected (NotDetected) Influenza Type B (PCR) Not Detected (NotDetected) M. pneumoniae (PCR) Not Detected (NotDetected) Parainfluenza 1 (PCR) Not Detected (NotDetected) Parainfluenza 2 (PCR) Not Detected (NotDetected) Parainfluenza 3 (PCR) Not Detected (NotDetected) Parainfluenza 4 (PCR) Not Detected (NotDetected) RSV (PCR) Not Detected (NotDetected) Entero/Rhino (PCR) Not Detected (NotDetected) Administered Medications Discontinued Medications Furosemide (Furosemide 40 Mg/4 Ml Vial) 40 mg IV ONE ONE Stop: 04/12/24 02:52 Last Admin: 04/12/24 02:57 Dose: 40 mg Documented By: JONNY Acetaminophen (Ofirmev) 1,000 mg in 100 mls @ 400 mls/hr IV NOW STA Stop: 04/12/24 01:45 Last Infusion: 04/12/24 02:35 Dose: Infused Documented By: Admin: 04/12/24 02:19 Dose: 400 mls/hr Documented By: JONNY Ceftriaxone Sodium (Rocephin) 2,000 mg in 50 mls @ 100 mls/hr IV NOW STA Stop: 04/12/24 02:04 Last Infusion: 04/12/24 02:51 Dose: Infused Documented By: Admin: 04/12/24 02:20 Dose: 100 mls/hr Documented By: JONNY Magnesium Sulfate/Dextrose (Magnesium Sulfate / D5w) 1 gm in 100 mls @ 100 mls/hr IV NOW STA Stop: 04/12/24 02:54 Last Infusion: 04/12/24 03:25 Dose: Infused Documented By: Admin: 04/12/24 02:21 Dose: 100 mls/hr Documented By: JONNY Imaging Data Radiologist's Impression: Chest X-Ray 04/12/24 01:17 EXAM: XR chest 1V portable CLINICAL HISTORY: DYSPNEA BRM TECHNIQUE: An X-ray image of the chest is obtained in AP projection. COMPARISON: 11/01/2023. FINDINGS: Pulmonary Parenchyma: Bilateral exaggerated broncho-vascular markings with prominent pulmonary interstitium, few pericardiac small ground glass opacities. Right mild pleural effusion. Left obscured left lower lung zone and left costophrenic angle. Heart and Mediastinum: Cardiomegaly with mediastinal widening. Bony Thorax: Sternotomy wires. A cardiac pacemaker is noted. The bony thorax appears intact without fractures or deformities. Soft Tissues: Soft tissues overlying the chest wall are unremarkable. IMPRESSION: 1. Bilateral exaggerated broncho-vascular markings with prominent pulmonary interstitium, few para cardiac small ground glass opacities. Stable. 2. Bilateral pleural effusion is more on the right side. Stable. 3. Cardiomegaly with mediastinal widening. Stable. 4. Improved right lower zone atelectasis. Electronically signed by Katerin Nova 04-12-2024 02:32 AM Discharge Plan Visit Data Chief Complaint: Respiratory Distress Stated Complaint: Respiratory Distress ED Provider: Maria Teresa Simental Discharge Problem: Acute dyspnea, Non-ST elevation UT (NSTEMI), Pulmonary edema, Elevated brain natriuretic peptide (BNP) level, Hypomagnesemia, Acute UTI (urinary tract infection) Forms Stand Alone Forms: My [email or web address] Prescriptions Prescriptions: No Action donepezil 5 mg tablet 5 mg PO DAILY multivitamin Tablet 1 tab PO DAILY sennosides 8.6 mg Tablet 17.2 mg PO DAILY acetaminophen [Tylenol] 325 mg Tablet 650 mg PO Q6 MDD 3G PRN (Reason: Fever Or Pain) omega-3 fatty acids 1,000 mg Capsule 1,000 mg PO BID olanzapine 2.5 mg tablet 2.5 mg PO TID warfarin 4 mg Tablet 4 mg PO HS famotidine 20 mg tablet 20 mg PO BID cyanocobalamin (vitamin B-12) [Vitamin B-12] 500 mcg Tablet 1,000 mcg PO DAILY insulin aspart U-100 [Novolog U-100 Insulin aspart] 100 unit/mL solution 15 unit subcut TIDWMEAL Rx Instructions: HOLD IF MEAL CONSUMED <50% levothyroxine 50 mcg tablet 50 mcg PO DAILY ferrous sulfate 325 mg (65 mg iron) Tablet 325 mg PO DAILY Bengay Ultra Strength 4-30-10 % Cream 1 applic TOPICAL QID PRN (Reason: Pain) Rx Instructions: Apply to shoulders & knees insulin glargine [Lantus Solostar U-100 Insulin] 100 unit/mL (3 mL) insulin pen 35 unit SUBCUT DAILY diclofenac sodium 1 % gel 4 g TOPICAL QID Rx Instructions: B/L KNEES melatonin 5 mg Tablet 5 mg PO HS Trulicity 1.5 mg/0.5 mL pen injector 1.5 mg SUBCUT .Q WED amoxicillin 500 mg capsule 2,000 mg PO UD PRN (Reason: Prophylaxis) Rx Instructions: TAKE 30-60 MINUTES PRIOR TO DENTAL APPOINTMENTS gabapentin 100 mg capsule 100 mg PO TID ipratropium-albuterol 0.5 mg-3 mg(2.5 mg base)/3 mL solution for nebulization 3 ml INHALATION QID Rx Instructions: START 04/05/24 TAKE FOR 2 WEEKS Referrals Referrals: [facility] [Primary Care Provider] -
[2024-04-12 01:30] LABS: Base Excess VBG 15.3 mEq/L; HCO3 VBG 45 mmol/L; Oxygen Saturation VBG < 60.0 %; PCO2 VBG 77 mmHg (38-50); PO2 VBG 25 mmHg; pH VBG 7.37 (7.36-7.41)
[2024-04-12 01:47] LABS: Basophils # (auto) 0.04 K/uL (0.00-0.20); Basophils % (auto) 0.6 %; Eosinophils % (auto) 1.4 %; Hematocrit (blood only) 36.1 % (37.0-47.0); Hemoglobin 10.9 g/dl (12.0-16.0); Immature Granulocytes # (auto) 0.03 K/uL (0.01-0.20); Immature Granulocytes % (auto) 0.4 %; Lymphocytes # (auto) 1.28 K/uL (1.20-3.40); Lymphocytes % (auto) 17.9 %; Mean Corpuscular Hemoglobin 30.1 pg (25.0-34.0); Mean Corpuscular Hgb Conc 30.2 g/dL (32.0-36.0); Mean Corpuscular Volume 99.7 fL (80.0-100.0); Mean Platelet Volume 9.6 fL (9.4-12.4); Monocytes # (auto) 0.68 K/uL (0.11-0.59); Monocytes % (auto) 9.5 %; Neutrophils # (auto) 5.03 K/uL (1.40-6.50); Neutrophils % (auto) 70.2 %; Platelet Count 239 K/uL (130-400); Red Blood Count 3.62 M/uL (4.20-5.40); White Blood Count 7.16 K/ul (4.8-10.8)
[2024-04-12 01:52] LABS: Albumin Globulin Ratio 0.9 (0.9-2); Albumin Level 3.3 gm/dl (3.4-5.0); BUN Creatinine Ratio 15.7 (10-20); Bilirubin,Total 0.4 mg/dl (0.2-1.0); Calcium 9.1 mg/dl (8.6-10.3); Creatinine Clr Calc Pharmacy 51.8 ml/min; Globulin 3.7 gm/dl (2.5-4.0); Magnesium 1.4 mg/dl (1.7-2.4); Potassium 4.7 mmol/L (3.5-5.1)
[2024-04-12 02:00] LABS: INR 1.8 (0.9-1.1); Prothrombin Time 18.7 Seconds (9.0-12.0)
[2024-04-12] MEDS: ACETAMINOPHEN 1,000 MG/100 ML VIAL IV STA (02:19)
[2024-04-12] MEDS: cefTRIAXone SODIUM 2,000 MG/50 ML BAG IV STA (02:20)
[2024-04-12] MEDS: MAGNESIUM SULFATE / D5W 1 GM/100 ML BAG IV STA (02:21)
[2024-04-12 02:31] LABS: Adenovirus PCR Not Detected (NotDetected); Bordetella parapertussis PCR Not Detected (NotDetected); Bordetella pertussis PCR Not Detected (NotDetected); Chlamydia pneumoniae PCR Not Detected (NotDetected); Coronavirus 229E PCR Not Detected (NotDetected); Coronavirus CoV-2 (COVID19)PCR Not Detected (NotDetected); Coronavirus HKU1 PCR Not Detected (NotDetected); Coronavirus NL63 PCR Not Detected (NotDetected); Coronavirus OC43PCR Not Detected (NotDetected); Human Metapneumovirus PCR Not Detected (NotDetected); Influenza A PCR Not Detected (NotDetected); Influenza B PCR Not Detected (NotDetected); Mycoplasma pneumoniae PCR Not Detected (NotDetected); Parainfluenza Virus 1 PCR Not Detected (NotDetected); Parainfluenza Virus 2 PCR Not Detected (NotDetected); Parainfluenza Virus 3 PCR Not Detected (NotDetected); Parainfluenza Virus 4 PCR Not Detected (NotDetected); Respiratory Syncytial VirusPCR Not Detected (NotDetected); Rhinovirus/Enterovirus PCR Not Detected (NotDetected)
--- NOTE | 2024-04-12 02:33 | XRay Report ---
EXAM: XR chest 1V portable CLINICAL HISTORY: DYSPNEA BRM TECHNIQUE: An X-ray image of the chest is obtained in AP projection. COMPARISON: 11/01/2023. FINDINGS: Pulmonary Parenchyma: Bilateral exaggerated broncho-vascular markings with prominent pulmonary interstitium, few pericardiac small ground glass opacities. Right mild pleural effusion. Left obscured left lower lung zone and left costophrenic angle. Heart and Mediastinum: Cardiomegaly with mediastinal widening. Bony Thorax: Sternotomy wires. A cardiac pacemaker is noted. The bony thorax appears intact without fractures or deformities. Soft Tissues: Soft tissues overlying the chest wall are unremarkable. IMPRESSION: 1. Bilateral exaggerated broncho-vascular markings with prominent pulmonary interstitium, few para cardiac small ground glass opacities. Stable. 2. Bilateral pleural effusion is more on the right side. Stable. 3. Cardiomegaly with mediastinal widening. Stable. 4. Improved right lower zone atelectasis. Electronically signed by Katerin Nova 04-12-2024 02:32 AM
[2024-04-12] MEDS: FUROSEMIDE 40 MG/4 ML VIAL IV ONE (02:57)
[2024-04-12 02:58] LABS: Appearance Urine Cloudy (Clear); Bacteria Urine Automated 4+ (None Seen); Bilirubin Urine Negative (Negative); Blood Urine Negative (Negative); Color Urine Yellow; Glucose Urine UA Negative (Negative); Ketones Urine Negative (Negative); Leukocyte Esterase Urine 2+ (Negative); Nitrite Urine Positive (Negative); Protein Urine 1+ (Negative); RBC Urine Automated 0-2 /hpf (0-2); Specific Gravity Urine 1.017 (1.000-1.030); Urobilinogen Urine Negative (Negative); WBC Urine Automated >50 /hpf (0-5); pH Urine 6.5 (4.5-7.5)
--- NOTE | 2024-04-12 04:45 | History & Physical Report ---
Date of Service April 12, 2024 Assessment & Plan (1) Acute UTI (urinary tract infection): Plan: - UA consistent with UTI, pt unable to provide history if she is symptomatic - Continue with Ceftriaxone - Mildly febrile on admission with temp= 38.3, otherwise hemodynamically stable without leukocytosis - f/u urine culture (2) Acute and chronic respiratory failure: Plan: - baseline oxygen 4L, which is what she is on presently - CXR with pleural effusions largely unchanged from prior - diffuse wheezing on exam, question how fair this is from her baseline - continue with prn Duoneb - s/p 40 IV lasix in the ED- hold on further diuresis for now. Appears euvolic and with hypernatremia some concern she may be a little hypovolemic (3) Hypernatremia: Plan: - Na= 147 - S/p Lasix in ED; some concern she may be a little hypovolemic - repeat qAM, may need some IVF (4) Hypomagnesemia: Plan: - Mg= 1.4, repleted x 1g IV in ED - repeat qAM (5) Elevated brain natriuretic peptide (BNP) level: Plan: - BNP= 225, which appears to be baseline for her - appears euvolemic, CXR stable from prior (6) Elevated troponin: Plan: - trop 52-> 44.7 - no ischemic changes on EKG - likely demand ischemia Plan Chronic Stable: Dementia: continue donepezil, continue zypreza DM2: hold Trulicity, last hemoglobin a1c 7.9 10/2023. SSI ACHS while inpatient, continue Lantus 35 units daily GERD: continue famotidine Hypothyroidism: continue levothyroxine History of PE/History of bioprosthetic aortic valve: continue warfarin, INR= 1.8, will trend KENAN: BiPap qHS Code: Full Diet: DM2 Dispo: Tele VTE prophylaxis: warfarin History of Present Illness Primary Care Provider: [facility] 78 year old female with a past medical history of afib on warfarin, KENAN, acute on chronic resp failure, hypothyroidism, DM2, COPD, GERD, complete heart block s/p pacemaker placement presenting with resp failure. Poor historian. Comes from [facility]. Apparently was using BiPAP throughout the day tonight. This evening was unresponsive, which prompted [facility] to call EMS. Uses a baseline 4L oxygen. Upon EMS arrival she was responsive and mentating appropriately. Pt had no complaints when I saw her. Denies dyspnea. ED Course Significant for: CBC unremarkable. INR= 1.8. VBG with pH= 7.37, pCO2= 77. NA= 147. Mg= 1.4. Trop 52-> 44.7 Procal= 0.06. UA + nitrite, LE, WBC, bacteria. Resp biofire negative. CXR with B/L pleural effusion, stable from prior. EKG with paced rhythm, no acute ischemic changes. S/p IV Mg x 1g, 2g Ceftriaxone, 40mg IV Lasix Allergies Allergy/AdvReac Type Severity Reaction Status Date / Time No Known Allergies Allergy Mild Verified 11/28/23 10:17 Home Medications Medication Instructions Recorded Confirmed Type acetaminophen 325 mg tablet 650 mg PO Q6 PRN Fever Or Pain 10/29/23 04/12/24 History (Tylenol) camphor 4 %-methyl salicylate 30 1 applic topical QID PRN Pain 10/29/23 04/12/24 History %-menthol 10 % topical cream (Bengay Ultra Strength) cyanocobalamin (vitamin B-12) 500 1,000 mcg PO DAILY 10/29/23 04/12/24 History mcg tablet (Vitamin B-12) diclofenac sodium 1 % topical gel 4 g topical QID 10/29/23 04/12/24 History donepezil 5 mg tablet 5 mg PO DAILY 10/29/23 04/12/24 History dulaglutide 1.5 mg/0.5 mL 1.5 mg subcut .Q WED 10/29/23 04/12/24 History subcutaneous pen injector (Trulicity) famotidine 20 mg tablet 20 mg PO BID 10/29/23 04/12/24 History ferrous sulfate 325 mg (65 mg 325 mg PO DAILY 10/29/23 04/12/24 History iron) tablet insulin aspart U-100 100 unit/mL 15 unit subcut TIDWMEAL 10/29/23 04/12/24 History subcutaneous solution (Novolog U-100 Insulin aspart) insulin glargine 100 unit/mL (3 35 unit subcut DAILY 10/29/23 04/12/24 History mL) subcutaneous pen (Lantus Solostar U-100 Insulin) levothyroxine 50 mcg tablet 50 mcg PO DAILY 10/29/23 04/12/24 History melatonin 5 mg tablet 5 mg PO HS 10/29/23 04/12/24 History multivitamin 1 tab PO DAILY 10/29/23 04/12/24 History olanzapine 2.5 mg tablet 2.5 mg PO TID 10/29/23 04/12/24 History omega-3 fatty acids 1,000 mg 1,000 mg PO BID 10/29/23 04/12/24 History capsule sennosides 8.6 mg tablet 17.2 mg PO DAILY 10/29/23 04/12/24 History warfarin 4 mg tablet 4 mg PO HS 10/29/23 04/12/24 History amoxicillin 500 mg capsule 2,000 mg PO UD PRN Prophylaxis 04/12/24 04/12/24 History gabapentin 100 mg capsule 100 mg PO TID 04/12/24 04/12/24 History ipratropium 0.5 mg-albuterol 3 mg 3 ml inhalation QID 04/12/24 04/12/24 History (2.5 mg base)/3 mL nebulization soln Past Med/Surg History Problem List (Updated 04/12/24 @ 06:28 by Background Daemon) Hypernatremia Acute UTI (urinary tract infection) (Acute) Hypomagnesemia (Acute) Elevated brain natriuretic peptide (BNP) level (Acute) Pulmonary edema (Acute) Non-ST elevation MO (NSTEMI) (Acute) Acute dyspnea (Acute) Aortic valvular disorder Acute kidney injury superimposed on CKD Admitted to intensive care unit Bradycardia (Acute) Second degree heart block (Acute) Acute respiratory failure with hypoxia and hypercarbia (Acute) Atrial fibrillation Obstructive sleep apnea Elevated serum creatinine Acute on chronic respiratory failure with hypoxia and hypercapnia Acute UTI (urinary tract infection) (Acute) Elevated troponin I level (Acute) Respiratory failure (Acute) Hypothyroidism Respiratory failure (Acute) Dementia Mobitz type 1 second degree atrioventricular block History of duodenal ulcer History of pulmonary embolus (PE) Encephalopathy Delirium DMII (diabetes mellitus, type 2) Chronic kidney disease (CKD), stage III (moderate) Anemia Hypomagnesemia 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 DVT prophylaxis Morbid obesity Bilateral lower leg cellulitis Weakness (Acute) Cellulitis (Acute) Failure of outpatient treatment (Acute) Pedal edema (Acute) Anemia (Acute) Foot ulcer, right Encounter for pre-operative examination Pulmonary embolism (Acute) Acute and chronic respiratory failure (Acute) Sepsis (Acute) Morbid obesity Anemia GI bleed Diabetes mellitus with insulin therapy Sepsis Pulmonary embolism Generalized weakness (Acute) Hypoxia (Acute) CIERA (acute kidney injury) (Acute) Elevated troponin (Acute) Hypomagnesemia (Acute) Dehydration (Acute) GERD (gastroesophageal reflux disease) HTN (hypertension) Paroxysmal A-fib Diastolic CHF CKD (chronic kidney disease) stage 3, GFR 30-59 ml/min Aortic valve stenosis Cellulitis of left leg (Acute) Weakness (Acute) Fall (Acute) Lower extremity edema (Acute) Venous stasis ulcers of both lower extremities (Acute) COPD (chronic obstructive pulmonary disease) (Chronic) Medical History Acute on chronic respiratory failure with hypoxia and hypercapnia Hypothyroidism Acute UTI Pneumonia Paroxysmal A-fib GERD (gastroesophageal reflux disease) Morbid obesity with BMI of 50.0-59.9, adult HTN (hypertension) Obstructive sleep apnea Diastolic CHF Pulmonary HTN Aortic valve stenosis Vitamin D deficiency CKD (chronic kidney disease) stage 3, GFR 30-59 ml/min Dyslipidemia Diabetes Surgical History History of cardiac cath Hx of total knee arthroplasty S/P AVR Family History Father Cancer pancreatic cancer Social History Smoking Status: Never smoker Second Hand Exposure: No; Do You Dip or Chew Tobacco: No; Hx Alcohol Use: No Hx Substance Use: No Preferred Language: Pashto Communication Ability: Impaired Furniture Designer Required: No Beliefs That Will Affect Care: None marital status: Current Living Situation: Senior Care Current Living Situation Comment: lives at home with son Feels Safe at Home: Yes Assistive Devices: Wheelchair and Other Review of Systems Review of Systems: As per above Physical Exam Physical Exam: Constitutional: well-appearing, no acute distress HEENT: NCAT, no conjunctival injection CV: regular rhythm, no murmur appreciated, extremities well-perfused, trace LE edema Resp: CTABL, diffuse wheezes, no increased work of breathing GI: soft, nondistended, nontender MSK: no gross deformities appreciated Skin: warm, dry, no rash appreciated Neuro: alert, oriented, no focal neurologic deficit appreciated Results & Data Results & Data Vital Signs (Past 12 Hours) Vital Signs Temp Pulse Pulse Resp BP BP Pulse Ox 04/12/24 03:33 65 18 95 04/12/24 02:56 76 18 115/69 95 04/12/24 01:17 71 22 96 04/12/24 01:15 72 04/12/24 00:56 04/12/24 00:56 04/12/24 00:56 38.3 C H 71 24 166/125 H 96 04/12/24 00:56 38.3 C H 77 28 H 173/76 H 97 O2 Del Method O2 Flow Rate 04/12/24 03:33 Nasal Cannula 4 04/12/24 02:56 Nasal Cannula 4 04/12/24 01:17 Nasal Cannula 4 04/12/24 01:15 04/12/24 00:56 Nasal Cannula 4 04/12/24 00:56 Nasal Cannula 4 04/12/24 00:56 Nasal Cannula 4 04/12/24 00:56 Nasal Cannula 4 Supervising Physician Co-Signing Physician Notes Attending addendum: I have physically seen this patient, have supervised the medical residents activities, and agree with the H&P unless as otherwise noted. Assessment and Plan: Urinary tract infection- Follow urine culture and sensitivity Empiric ceftriaxone 2 g IV daily Acute and chronic respiratory failure with hypoxia Chronically on 4 L nasal cannula oxygen Pleural effusions unchanged from previous DuoNebs every 2 hours as needed Status post Lasix 40 mg IV in the ED. Assess response and then reassess need for further Hyponatremia- Sodium 147 Repeat BMP in a.m., noting addition of IV Lasix from the ED Hypomagnesemia- Magnesium 1.4 on admission Status post 1 g IV replacement from the ED Will likely need more, in particular getting IV Lasix Recheck laboratories in a.m. Elevated troponin- Initial troponin 52, follow-up 44.7 Benign EKG Likely demand ischemia Admit to telemetry Repeat laboratories in a.m. Resident Activity Tracking Resident Involvement: Resident Care Provided Care Provided: Adult Hospital Medicine (2) Acute and chronic respiratory failure Respiratory failure complication: hypoxia Qualified Code(s): J96.21 - Acute and chronic respiratory failure with hypoxia
--- NOTE | 2024-04-12 07:04 | Hospitalist Progress Note ---
Date of Service April 12, 2024 Assessment & Plan (1) Acute UTI (urinary tract infection): (2) Acute and chronic respiratory failure: (3) Hypernatremia: (4) Hypomagnesemia: (5) Elevated brain natriuretic peptide (BNP) level: Plan: (6) Elevated troponin: Plan 1) Acute UTI (urinary tract infection) - UA consistent with UTI, pt unable to provide history if she is symptomatic - Continue with Ceftriaxone - Mildly febrile on admission with temp= 38.3, otherwise hemodynamically stable without leukocytosis - Urine Cx pending - Most recent previous urine Cx's positive for E. coli and Klebsiella (2) Acute and chronic respiratory failure - baseline oxygen 4L, which is what she is on presently - CXR with pleural effusions largely unchanged from prior - diffuse wheezing on exam, question how far this is from her baseline - continue with prn Duoneb - s/p 40 IV lasix in the ED- hold on further diuresis for now. Appears euvolic and with hypernatremia some concern she may be a little hypovolemic (3) Hypernatremia: - Na= 147 - S/p Lasix in ED; some concern she may be a little hypovolemic - repeat qAM, may need some IVF (4) Hypomagnesemia - Mg= 1.4, repleted x 1g IV in ED - repeat qAM (5) Elevated brain natriuretic peptide (BNP) level - BNP= 225, which appears to be baseline for her - appears euvolemic, CXR stable from prior (6) Elevated troponin - trop 52-> 44.7 - no ischemic changes on EKG - likely demand ischemia (7) Hx of bioprostheic aortic valve/Hx of PE - one time dose of 6 mg warfarin today (4 pm) - warfarin, 4 mg, daily, scheduled (held today) - INR, 1.8; trend INR daily and adjust warfarin dose accordingly Plan Chronic Stable: Dementia: continue donepezil, continue zypreza DM2: hold Trulicity, last hemoglobin a1c 7.9 10/2023. SSI ACHS while inpatient, continue Lantus 35 units daily GERD: continue famotidine Hypothyroidism: continue levothyroxine KENAN: BiPap qHS Code: Full Diet: DM2 Dispo: Tele VTE prophylaxis: warfarin Admission and Anticipated Discharge Date Admission Date: April 12, 2024 Supervising Physician Co-Signing Physician Notes ATTESTATION I also saw the patient and confirmed marquez portions of the history and exam. I agree with the impression and plan in the resident documentation, and as summarized below. Patient admitted earlier today by overnight team, seen early afternoon. Resident at [facility] found to be unresponsive by staff. EMS called - responsive without complaint upon arrival. She is awake and oriented. While non specific, seems to be fell better now than last evening. EXAM 143/67, 78, 20 Oxygen 4 lpm via oxymask, now at 98% Lungs with wheezing in all patel, prolonged exp phase CV distant, regular DATA Labs HgB 10.9 INR 1.8 Na 147 Mg 1.4 BNP 225 Imaging CXR with stable chronic changes Micro Blood cultures 0150 today pending Urine culture 0218 pending IMPRESSION & PLAN Episode of unresponsiveness, resolved Question UTI, culture pending Acute on Chronic Hypercapnic respiratory failure with obesity hypoventilation syndrome COPD with acute exacerbation Demand ischemia Subtherapeutic INR Ceftriaxone pending culture Solumedrol for COPD exacerbation and noted wheezing upon exam Trend sodium Monitor magnesium, replete if indicated Increase warfarin this evening, check daily INR Additional per resident documentation Subjective Patient is a 78 yo F w/ a PMHx of KENAN, AFib, 2nd degree heart block (Mobitz type 1), hypothyroidism, dementia, T2DM, CKD-stage 3, anemia, among other conditions who presented with concerns for Asked the patient if she wears a CPAP at night and she said that she wears some kind of device to help her breathe while she sleeps. Review of Systems Review of Systems: Other (Difficult to obtain initially due to patient's lethargy) Constitutional: + fatigue Respiratory: + wheezing; no dyspnea (patient denies a ny sensation of shortness of breath) Cardiovascular: no chest pain, no dyspnea and no palpitations Physical Exam Constitutional: + ill appearing and + morbidly obese Respiratory: + audible wheezes Auscultation: + whe ezes; no crackles Results & Data Results & Data Vital Signs (Past 12 Hours) Vital Signs Temp Pulse Pulse Resp BP BP Pulse Ox 04/12/24 06:09 38.1 C H 61 20 134/61 95 04/12/24 06:00 66 20 134/61 95 04/12/24 05:27 63 04/12/24 03:33 65 18 95 04/12/24 02:56 76 18 115/69 95 04/12/24 01:17 71 22 96 04/12/24 01:15 72 04/12/24 00:56 04/12/24 00:56 04/12/24 00:56 38.3 C H 71 24 166/125 H 96 04/12/24 00:56 38.3 C H 77 28 H 173/76 H 97 O2 Del Method O2 Flow Rate 04/12/24 06:09 Nasal Cannula 4 04/12/24 06:00 Nasal Cannula 4 04/12/24 05:27 04/12/24 03:33 Nasal Cannula 4 04/12/24 02:56 Nasal Cannula 4 04/12/24 01:17 Nasal Cannula 4 04/12/24 01:15 04/12/24 00:56 Nasal Cannula 4 04/12/24 00:56 Nasal Cannula 4 04/12/24 00:56 Nasal Cannula 4 04/12/24 00:56 Nasal Cannula 4 Resident Activity Tracking Resident Involvement: Resident Care Provided Care Provided: Adult Hospital Medicine (2) Acute and chronic respiratory failure Respiratory failure complication: hypoxia Qualified Code(s): J96.21 - Acute and chronic respiratory failure with hypoxia
[2024-04-12] MEDS ORDERED: GLUCOSE 10 TAB/TUBE PO PRN (07:39)
[2024-04-12] MEDS ORDERED: CARBOHYDRATES FOR HYPOGLYCEMIA PO PRN (07:39)
[2024-04-12] MEDS ORDERED: GLUCOSE 40% GEL 15 GM TUBE PO PRN (07:39)
[2024-04-12] MEDS ORDERED: ACETAMINOPHEN 325 MG TAB PO PRN (07:39)
[2024-04-12] MEDS ORDERED: DEXTROSE 50% 50 ML SYRINGE IV PRN (07:39)
[2024-04-12] MEDS ORDERED: GLUCAGON FOR INJ 1 MG VIAL SQ PRN (07:39)
[2024-04-12] MEDS: ALBUT/IPRATROP 3MG/0.5MG NEB 3 ML VIAL INH SCH (08:20)
[2024-04-12] MEDS: INSULIN ASPART PER UNIT CHARGE SC SCH (09:42)
[2024-04-12] MEDS: LANTUS PER UNIT CHARGE SQ SCH (10:51)
[2024-04-12] MEDS: CYANOCOBALAMIN (B-12) 500 MCG TABLET PO SCH (11:43)
[2024-04-12] MEDS: FAMOTIDINE 20 MG TAB PO SCH (11:44)
[2024-04-12] MEDS: OLANZAPINE 2.5 MG TAB PO SCH (11:44)
[2024-04-12] MEDS: DONEPEZIL HCL 5 MG TAB PO SCH (11:44)
[2024-04-12] MEDS: GABAPENTIN 100 MG CAP PO SCH (11:44)
[2024-04-12] MEDS: FERROUS SULFATE 325 MG TAB PO SCH (11:44)
[2024-04-12] MEDS: LEVOTHYROXINE SODIUM 50 MCG TABLET PO SCH (11:44)
[2024-04-12] MEDS: MULTIVITAMIN TAB PO SCH (11:44)
--- NOTE | 2024-04-12 11:50 | Electrocardiogram Report ---
Test Reason : Blood Pressure : */* mmHG Vent. Rate : 72 BPM Atrial Rate : 105 BPM P-R Int : * ms QRS Dur : 98 ms QT Int : 378 ms P-R-T Axes : * 16 87 degrees QTcB Int : 413 ms AV sequential or dual chamber electronic pacemaker Abnormal ECG When compared with ECG of 29-Oct-2023 01:25, AV sequential or dual chamber electronic pacemaker has replaced Sinus rhythm Vent. rate has increased by 37 bpm Confirmed by Teodoro Ramsey ([id number]) on 04/12/2024 11:49:57 AM Referred By: Jomar Cooney Confirmed By: Teodoro Ramsey
[2024-04-12] MEDS ORDERED: methylPREDNISolone 125 MG/2 ML VIAL IV STA (13:35)
[2024-04-12] MEDS ORDERED: methylPREDNISolone 30 MG in SYRINGE 0 ML IV STA (13:59)
[2024-04-12] MEDS: methylPREDNISolone 40 MG in SYRINGE 0 ML IV STA (16:34)
[2024-04-12] MEDS: WARFARIN SOD 6 MG TAB PO ONE (16:34)
[2024-04-12] MEDS: MELATONIN 3 MG TAB PO SCH (21:23)
[2024-04-13] MEDS: cefTRIAXone SODIUM 2,000 MG/50 ML BAG IV SCH (00:22)
[2024-04-13] MEDS: MELATONIN 3 MG TAB PO ONE (00:39)
[2024-04-13] MEDS ORDERED: cefTRIAXone SODIUM 1,000 MG/50 ML BAG IV SCH (01:00)
[2024-04-13 06:54] LABS: Hematocrit (blood only) 34.9 % (37.0-47.0); Hemoglobin 10.6 g/dl (12.0-16.0); Mean Corpuscular Hemoglobin 30.2 pg (25.0-34.0); Mean Corpuscular Hgb Conc 30.4 g/dL (32.0-36.0); Mean Corpuscular Volume 99.4 fL (80.0-100.0); Mean Platelet Volume 9.8 fL (9.4-12.4); Platelet Count 228 K/uL (130-400); RDW Coefficient of Variation 13.4 % (11.5-14.5); RDW Standard Deviation 49.1 fL (36.4-46.3); Red Blood Count 3.51 M/uL (4.20-5.40); White Blood Count 5.64 K/ul (4.8-10.8)
[2024-04-13 07:13] LABS: BUN Creatinine Ratio 20.7 (10-20); Calcium 8.7 mg/dl (8.6-10.3); Creatinine Clr Calc Pharmacy 62.3 ml/min; Magnesium 1.4 mg/dl (1.7-2.4); Potassium 4.7 mmol/L (3.5-5.1)
--- NOTE | 2024-04-13 07:18 | Hospitalist Progress Note ---
Date of Service April 13, 2024 Assessment & Plan (1) Acute UTI (urinary tract infection): (2) Acute and chronic respiratory failure: (3) Hypernatremia: (4) Hypomagnesemia: (5) Elevated brain natriuretic peptide (BNP) level: Plan: (6) Elevated troponin: Plan 1) Acute UTI (urinary tract infection) - UA consistent with UTI, pt unable to provide history if she is symptomatic - Continue with Ceftriaxone - Mildly febrile on admission with temp= 38.3, otherwise hemodynamically stable without leukocytosis - Urine Cx, positive for E. coli (> 100,000 CFU/mL), sensitivities pending; Blood Cx's, both neg after 24 hrs - Most recent previous urine Cx's positive for E. coli and Klebsiella, both sensitive to Ceftriaxone (2) Acute and chronic respiratory failure - baseline oxygen 4L, which is what she is on presently - CXR with pleural effusions largely unchanged from prior - diffuse wheezing on exam, not audible (only discernible w/ stethoscope today) - continue with, PRN Duoneb - s/p 40 IV lasix in the ED- hold on further diuresis for now. Appears euvolic and with hypernatremia some concern she may be a little hypovolemic (3) Hypernatremia/Hypovolemic - Na, 145 <-- 147 - S/p Lasix in ED; some concern she may be a little hypovolemic - repeat qAM (4) Hypomagnesemia - Mg= 1.4, repleted x 1g IV in ED - repeat qAM --> 1.4 --> 2 g MgSO4 ordered - repeat Mg (14:00), 1.8 - Mg citrate, PO, 148 mL (04/13 -04/14, daily, 10 pm) ordered (5) Elevated brain natriuretic peptide (BNP) level - BNP= 225, which appears to be baseline for her - appears euvolemic, CXR stable from prior (6) Elevated troponin - trop, 44.7 <-- 52 - no ischemic changes on EKG - likely demand ischemia (7) Hx of bioprostheic aortic valve/Hx of PE - one time dose of 6 mg warfarin today (4 pm) - warfarin, 4 mg, daily, scheduled (held today) - trend INR daily and adjust warfarin dose accordingly (goal INR, 2-3) - INR, 2.2 today, continue normal warfarin dose, 4 mg, daily Plan Chronic Stable: Dementia: continue donepezil, continue Zyprexa, soft hand restraints ordered to prevent med equip removal DM2: hold Trulicity, last hemoglobin a1c 7.9 10/2023. SSI ACHS while inpatient, continue Lantus 35 units daily GERD: continue famotidine Hypothyroidism: continue levothyroxine KENAN: BiPap qHS Code: Full Diet: T2DM carb consistent Dispo: Med Tele VTE prophylaxis: warfarin Admission and Anticipated Discharge Date Admission Date: April 12, 2024 Supervising Physician Co-Signing Physician Notes I personally examined the patient and verified marquez points of history and exam, discussed case, and agree with decision making and plan documented by Dr. Wisdom. Patient appears comfortable, nasal canula in place, lungs with faint expiratory wheeze bilaterally, regular rate and rhythm, no acute distress. Currently treating UTI, we will transition to oral p.o. medications upon sensitivities of urine culture. Subjective Patient is a 78 yo F w/ a PMHx of KENAN (on CPAP or BiPAP), AFib, 2nd degree heart block (Mobitz type 1), hypothyroidism, dementia, T2DM, CKD-stage 3, anemia, among other conditions who presented due to staff concerns at home where she lives for respiratory distress/compromise and increased lethargy. Asked the patient to please comply w/ nursing and the IV team and not rip her IVs out, as she is low on magnesium and needs magnesium IV repletion to prevent arrhythmias and other complications, and in general needs IV access. Patient verbally said she understood. Today she continues to say she has no urinary tract symptoms--no dysuria, no increased freq/urg; is not feeling short of breath or having any resp distress. Review of Systems Review of Systems: As per above Constitutional: + fatigue Respiratory: + wheezing; no dyspnea (patient denies a ny sensation of shortness of breath) Cardiovascular: no chest pain, no dyspnea and no palpitations Gastrointestinal: no abdominal pain, no nausea and no vomiting Genitourinary: no dysuria, no urinary frequency and no urinary urgency Physical Exam Constitutional: + ill appearing and + morbidly obese Respiratory: normal respiratory effort and able to speak in complete sentences; no audible wheezes Auscultation: + wheezes; no diminished lung sounds and no crackles Cardiovascular: RRR, no murmur, no edema Extremities: normal capillary refill; no calf tenderness Gastrointestinal (Abdomen): normal bowel sounds, soft, nontender, no hepatosplenomegaly Psychiatric: Orientation: alert, oriented to person and oriented to place; + not oriented to time Results & Data Results & Data Vital Signs (Past 12 Hours) Vital Signs Temp Pulse Pulse Resp BP Pulse Ox O2 Del Method 04/13/24 07:07 60 04/13/24 06:52 80 18 94 Nasal Cannula 04/13/24 04:08 36.4 C L 80 20 178/63 H 93 Nasal Cannula 04/13/24 00:15 36.8 C 83 20 152/70 H 94 Nasal Cannula 04/12/24 21:49 Oxymask 04/12/24 20:37 36.9 C 81 20 146/79 H 93 Nasal Cannula 04/12/24 19:42 81 18 93 Oxymask O2 Flow Rate 04/13/24 07:07 04/13/24 06:52 2 04/13/24 04:08 4 04/13/24 00:15 4 04/12/24 21:49 4 04/12/24 20:37 2 04/12/24 19:42 2 (2) Acute and chronic respiratory failure Respiratory failure complication: hypoxia Qualified Code(s): J96.21 - Acute and chronic respiratory failure with hypoxia
[2024-04-13 07:20] LABS: INR 2.2 (0.9-1.1); Prothrombin Time 22.7 Seconds (9.0-12.0)
[2024-04-13] MEDS: MAGNESIUM SULFATE / D5W 1 GM/100 ML BAG IV SCH ×2 (10:24→21:32)
[2024-04-13] MEDS: WARFARIN SOD 4 MG TAB PO SCH (12:48)
[2024-04-13] MEDS ORDERED: MAGNESIUM CITRATE 296 ML/BTL PO SCH (22:00)
[2024-04-14 06:19] LABS: Hematocrit (blood only) 36.5 % (37.0-47.0); Hemoglobin 11.2 g/dl (12.0-16.0); Mean Corpuscular Hemoglobin 30.2 pg (25.0-34.0); Mean Corpuscular Hgb Conc 30.7 g/dL (32.0-36.0); Mean Corpuscular Volume 98.4 fL (80.0-100.0); Mean Platelet Volume 9.5 fL (9.4-12.4); Platelet Count 259 K/uL (130-400); RDW Coefficient of Variation 13.5 % (11.5-14.5); RDW Standard Deviation 48.6 fL (36.4-46.3); Red Blood Count 3.71 M/uL (4.20-5.40); White Blood Count 8.05 K/ul (4.8-10.8)
[2024-04-14 06:29] LABS: Magnesium 1.9 mg/dl (1.7-2.4); Potassium 4.7 mmol/L (3.5-5.1)
[2024-04-14 06:34] LABS: Creatinine Clr Calc Pharmacy 54.3 ml/min
[2024-04-14 06:56] LABS: INR 2.6 (0.9-1.1); Prothrombin Time 25.6 Seconds (9.0-12.0)
--- NOTE | 2024-04-14 10:48 | Communication Note ---
Date of Service: April 14, 2024 Evaluated patient during round at 10:30 am. Difficult to arouse with sternal rub. Per RN and PILLOWCASE TURNER report, patient has been somnolent all morning. Patient received dose of zyprexa, melantonin, and gabapentin last night in addition to magnesium. Dr. Wisdom asked to be present at bedside. Patient tachypneic on 1 L NS. Exam with RRR, expiratory wheezing bilateral lung patel, nontender abdomen. Patient would not open eyes and respond to questioning after sternal rub. Advised STAT CT head and labs including CBC, CMP, Mg levels for workup of AMS.
--- NOTE | 2024-04-14 11:04 | CT Scan Report ---
EXAM: CT Head Without Intravenous Contrast INDICATION: Lethargy. TECHNIQUE: Axial computed tomography images of the head/brain without intravenous contrast. Sagittal and/or coronal reformats are provided. Sagittal and coronal reformatted images were created and reviewed. This CT exam was performed using one or more of the following dose reduction techniques: automated exposure control, adjustment of the mA and/or kV according to patient size, and/or use of iterative reconstruction technique. COMPARISON: 03/04/2022 FINDINGS: Limitations: None. Brain and extra-axial spaces: There is age appropriate cortical atrophy and chronic ischemic periventricular white matter hypodensity. No acute infarct, hemorrhage or mass noted. Bones/joints: No acute changes. Soft tissues: No significant abnormality noted. Vasculature: Intracranial atherosclerosis of the vertebral and carotid arteries noted. Sinuses: Stable mild chronic left sinus thickening. Mastoid air cells: No mastoid effusion. Orbits: No significant abnormality noted. IMPRESSION: Cerebral atrophy. No acute changes. ACT 112: Negative or not required by law. Electronically signed by Radha Saeed 04-14-2024 11:03 AM
[2024-04-14 11:36] LABS: Basophils # (auto) 0.03 K/uL (0.00-0.20); Basophils % (auto) 0.4 %; Eosinophils # (auto) 0.25 K/uL (0.00-0.50); Eosinophils % (auto) 3.4 %; Hematocrit (blood only) 37.3 % (37.0-47.0); Hemoglobin 11.3 g/dl (12.0-16.0); Immature Granulocytes # (auto) 0.02 K/uL (0.01-0.20); Immature Granulocytes % (auto) 0.3 %; Lymphocytes # (auto) 1.82 K/uL (1.20-3.40); Lymphocytes % (auto) 24.7 %; Mean Corpuscular Hemoglobin 30.3 pg (25.0-34.0); Mean Corpuscular Hgb Conc 30.3 g/dL (32.0-36.0); Mean Platelet Volume 9.4 fL (9.4-12.4); Monocytes # (auto) 0.45 K/uL (0.11-0.59); Monocytes % (auto) 6.1 %; Neutrophils % (auto) 65.1 %; Platelet Count 259 K/uL (130-400); RDW Coefficient of Variation 13.6 % (11.5-14.5); RDW Standard Deviation 50.1 fL (36.4-46.3); Red Blood Count 3.73 M/uL (4.20-5.40); White Blood Count 7.37 K/ul (4.8-10.8)
[2024-04-14 11:58] LABS: Albumin Globulin Ratio 0.9 (0.9-2); Albumin Level 3.4 gm/dl (3.4-5.0); BUN Creatinine Ratio 19.6 (10-20); Bilirubin,Total 0.3 mg/dl (0.2-1.0); Calcium 9.4 mg/dl (8.6-10.3); Creatinine Clr Calc Pharmacy 53.3 ml/min; Globulin 3.7 gm/dl (2.5-4.0); Magnesium 1.8 mg/dl (1.7-2.4); Potassium 4.2 mmol/L (3.5-5.1); Total Protein 7.1 gm/dl (6.0-8.3)
[2024-04-14 12:53] LABS: Base Excess VBG 12.9 mEq/L; HCO3 VBG 42 mmol/L; Oxygen Saturation VBG 62.5 %; PCO2 VBG 72 mmHg (38-50); PO2 VBG 38 mmHg; pH VBG 7.37 (7.36-7.41)
[2024-04-14] MEDS: MICONAZOLE NITRATE POWDER 85 GM EXT PRN (16:07)
--- NOTE | 2024-04-14 17:32 | Hospitalist Progress Note ---
Date of Service April 14, 2024 Assessment & Plan (1) Acute UTI (urinary tract infection): (2) Acute and chronic respiratory failure: (3) Hypernatremia: (4) Hypomagnesemia: (5) Elevated brain natriuretic peptide (BNP) level: Plan: (6) Elevated troponin: Plan 1) Acute UTI (urinary tract infection) - UA consistent with UTI, pt unable to provide history if she is symptomatic - Continue with Ceftriaxone - Mildly febrile on admission with temp= 38.3, otherwise hemodynamically stable without leukocytosis - Urine Cx, positive for E. coli (> 100,000 CFU/mL), sensitivities pending; Blood Cx's, both neg after 24 hrs - Most recent previous urine Cx's positive for E. coli and Klebsiella, both sensitive to Ceftriaxone (2) Acute and chronic respiratory failure - baseline oxygen 4L, which is what she is on presently - CXR with pleural effusions largely unchanged from prior - diffuse wheezing on exam, not audible (only discernible w/ stethoscope today) - continue with, PRN Duoneb - s/p 40 IV lasix in the ED- hold on further diuresis for now. Appears euvolic and with hypernatremia some concern she may be a little hypovolemic (3) Hypercarbia - repeat VBG showed hypercarbia again today w/ pt showing signs of somnolence this morning - VBG: pH 7.37, pCO2, 72; HCO3, 42 - BiPap ordered again in case patient has not been using during her stay (4) Hypomagnesemia - Mg, 1.8 <-- 1.4, - repleted x 1g IV in ED, - repeat qAM --> 1.4 --> 2 g MgSO4 ordered - Mg now normal (5) Elevated brain natriuretic peptide (BNP) level - BNP, 225, which appears to be baseline for her - appears euvolemic, CXR stable from prior (6) Elevated troponin - trop, 44.7 <-- 52 - no ischemic changes on EKG - likely demand ischemia (7) Hx of bioprostheic aortic valve/Hx of PE - one time dose of 6 mg warfarin today (4 pm) - warfarin, 4 mg, daily, scheduled (held today) - trend INR daily and adjust warfarin dose accordingly (goal INR, 2-3) - INR, 2.6 today, continue normal warfarin dose, 4 mg, daily (8) Hypernatremia/Hypovolemic #resolved - Na, 142 <-- 145 <-- 147 - S/p Lasix in ED; some concern she may be a little hypovolemic - repeat qAM Plan Chronic Stable: Dementia: continue donepezil, continue Zyprexa, soft hand restraints ordered to prevent med equip removal DM2: hold Trulicity, last hemoglobin a1c 7.9 10/2023. SSI ACHS while inpatient, continue Lantus 35 units daily GERD: continue famotidine Hypothyroidism: continue levothyroxine KENAN: BiPap qHS, order re-ordered on 04/14/24 evening Code: Full Diet: T2DM carb consistent Dispo: Med Tele VTE prophylaxis: warfarin Admission and Anticipated Discharge Date Admission Date: April 12, 2024 Supervising Physician Co-Signing Physician Notes I personally examined the patient and verified marquez points of history and exam, discussed case, and agree with decision making and plan documented by Dr. Wisdom. Subjective Patient is a 78 yo F w/ a PMHx of KENAN (on CPAP or BiPAP), AFib, 2nd degree heart block (Mobitz type 1), hypothyroidism, dementia, T2DM, CKD-stage 3, anemia, among other conditions who presented due to staff concerns at home where she lives for respiratory distress/compromise and increased lethargy. Patient very difficult to arouse when seen in the morning, but apparently sleeping, with RR 18, O2 sats 94% and not in any apparent respiratory distress. When attempted to be aroused, she would mumble, would respond to her name, but would fall back asleep. This was similar to patient's baseline when the patient was seen on morning, with the patient drifting back into sleep between questions. On afternoon, she was able to sustain attention and seemed more alert. Concern that this represented a patient far from her baseline resulted in a further investigation including a non-contrast CT-head and a repeat of the morning labs: CBC, CMP, and Mg. During the trip to the CT scanner, the patient became more alert and continued to wake up. Upon return, the patient was further assessed and was without any focal neurological deficits, able to maintain alertness, was alert and oriented to self only. Patient did recall that she was in a hospital when repeatedly prompted and given choices of what type of building she was in but remained not oriented to time. The patient continued to remain alert throughout the afternoon and declined herself to take many of her more sedating medications. Review of Systems Review of Systems: As per above Constitutional: + fatigue and + daytime sleepiness; no f ever and no chills Respiratory: + wheezing; no dyspnea (patient denies a ny sensation of shortness of breath) Cardiovascular: no chest pain, no dyspnea and no palpitations Gastrointestinal: no abdominal pain, no nausea and no vomiting Genitourinary: no dysuria, no urinary frequency and no urinary urgency Physical Exam Constitutional: + ill appearing and + morbidly obese Respiratory: normal respiratory effort and able to speak in complete sentences; no audible wheezes Auscultation: + wheezes; no diminished lung sounds and no crackles Cardiovascular: RRR, no murmur, no edema Extremities: normal capillary refill; no calf tenderness Gastrointestinal (Abdomen): normal bowel sounds, soft, nontender, no hepatosplenomegaly Psychiatric: Orientation: alert, oriented to person and cooperative; + not oriented to place and + not oriented to time Results & Data Results & Data Vital Signs (Past 12 Hours) Vital Signs Temp Pulse Pulse Resp BP Pulse Ox O2 Del Method 04/14/24 15:31 37.2 C 62 18 129/77 94 Nasal Cannula 04/14/24 15:24 78 16 91 Nasal Cannula 04/14/24 14:56 75 04/14/24 11:42 37.2 C 61 20 131/87 93 Nasal Cannula 04/14/24 11:41 63 16 91 Room Air 04/14/24 10:29 60 169/75 H 90 Nasal Cannula 04/14/24 08:19 93 Nasal Cannula 04/14/24 08:04 Nasal Cannula 04/14/24 08:00 60 04/14/24 07:51 36.4 C L 28 H 100 Nasal Cannula 04/14/24 07:35 35.9 C L 61 30 H 158/82 H 93 Nasal Cannula 04/14/24 07:21 67 18 93 Nasal Cannula O2 Flow Rate 04/14/24 15:31 1 04/14/24 15:24 2 04/14/24 14:56 04/14/24 11:42 1 04/14/24 11:41 04/14/24 10:29 1 04/14/24 08:19 1 04/14/24 08:04 1 04/14/24 08:00 04/14/24 07:51 2 04/14/24 07:35 2 04/14/24 07:21 2 (2) Acute and chronic respiratory failure Respiratory failure complication: hypoxia Qualified Code(s): J96.21 - Acute and chronic respiratory failure with hypoxia
[2024-04-15 07:44] LABS: INR 2.7 (0.9-1.1)
--- NOTE | 2024-04-15 16:47 | Hospitalist Progress Note ---
Date of Service April 15, 2024 Assessment & Plan (1) Acute UTI (urinary tract infection): (2) Acute and chronic respiratory failure: (3) Hypernatremia: (4) Hypomagnesemia: (5) Elevated brain natriuretic peptide (BNP) level: Plan: (6) Elevated troponin: Plan 1) Acute UTI (urinary tract infection) - UA consistent with UTI, pt unable to provide history if she is symptomatic - Continue with Ceftriaxone until 04/17/24 - Mildly febrile on admission with temp= 38.3, otherwise hemodynamically stable without leukocytosis - Urine Cx, positive for E. coli (> 100,000 CFU/mL), sensitive to Ceftriaxone; - Blood Cx's, both neg after 48 hrs (2) Acute and chronic respiratory failure - baseline oxygen 4L, which is what she is on presently - CXR with pleural effusions largely unchanged from prior - diffuse wheezing on exam, not audible (only discernible w/ stethoscope today) - continue with, PRN Duoneb - s/p 40 IV lasix in the ED- hold on further diuresis for now. Appears euvolic and with hypernatremia some concern she may be a little hypovolemic (3) Hypercarbia - repeat VBG showed hypercarbia again today w/ pt showing signs of somnolence this morning - VBG: pH 7.37, pCO2, 72; HCO3, 42 - BiPap ordered again in case patient has not been using during her stay - patient much more alert today, suggesting improved ventilation (4) Hypomagnesemia - Mg, 1.8 <-- 1.4, - repleted x 1g IV in ED, repeat qAM morning after --> 1.4 --> 2 g MgSO4 ordered - Mg now normal (5) Elevated brain natriuretic peptide (BNP) level - BNP, 225, which appears to be baseline for her - appears euvolemic, CXR stable from prior (6) Elevated troponin #resolved - trop, 44.7 <-- 52 - no ischemic changes on EKG - likely demand ischemia (7) Hx of bioprostheic aortic valve/Hx of PE - one time dose of 6 mg warfarin today (4 pm) - warfarin, 4 mg, daily, scheduled (held today) - trend INR daily and adjust warfarin dose accordingly (goal INR, 2-3) - INR, 2.7 today, continue normal warfarin dose, 4 mg, daily (8) Hypernatremia/Hypovolemic #resolved - Na, 142 <-- 145 <-- 147 - S/p Lasix in ED; some concern she may be a little hypovolemic - repeat qAM (9) Skin tag/growth of r. groin area - noted today by nurse, photo taken and shared w/ resident - will try to determine previous PCP Dx/mgmt of this condition Plan Chronic Stable: Dementia: continue donepezil, continue Zyprexa, soft hand restraints ordered to prevent med equip removal DM2: hold Trulicity, last hemoglobin a1c 7.9 10/2023. SSI ACHS while inpatient, continue Lantus 35 units daily GERD: continue famotidine Hypothyroidism: continue levothyroxine KENAN: BiPap qHS, order re-ordered on 04/14/24 evening Code: Full Diet: T2DM carb consistent Dispo: Med Tele VTE prophylaxis: warfarin Admission and Anticipated Discharge Date Admission Date: April 12, 2024 Supervising Physician Co-Signing Physician Notes I personally examined the patient and verified marquez points of history and exam, discussed case, and agree with decision making and plan documented by Dr. Wisdom. Patient with improved mentation today, is at baseline oxygen, is hopeful to get out of bed. Reviewed patient's code status and goals of care with her, she did not want to make any decisions until her son Felipe or daughter Candice were present. Team attempted to further discuss discussion with family but was unsuccessful. Recommend continuing BiPAP at night with supplemental oxygen during the day. Patient near completion of antibiotics for acute UTI. Subjective Patient is a 78 yo F w/ a PMHx of KENAN (on CPAP or BiPAP), AFib, 2nd degree heart block (Mobitz type 1), hypothyroidism, dementia, T2DM, CKD-stage 3, anemia, among other conditions who presented due to staff concerns at home where she lives for respiratory distress/compromise and increased lethargy. The patient was much more alert today but still only oriented to herself. Patient feels like her breathing and any respiratory distress that she may have had, has improved and that she's back to baseline. Patient does endorse confusion as to why she's here, wanted her daughter to be talked to today (daughter did stop by later but stayed less than 10 minutes and could not be talked with), and expressed a general fear that if she returned to [facility] that she would be at risk of dying because she wouldn't always be watched by other people. Patient assured that the staff there was alert enough to know to bring her in this time and would likely be again. Review of Systems Review of Systems: As per above Constitutional: + fatigue and + daytime sleepiness; no f ever and no chills Respiratory: + wheezing; no dyspnea (patient denies a ny sensation of shortness of breath) Cardiovascular: no chest pain, no dyspnea and no palpitations Gastrointestinal: no abdominal pain, no nausea and no vomiting Genitourinary: no dysuria, no urinary frequency and no urinary urgency Physical Exam Constitutional: + ill appearing and + morbidly obese Respiratory: normal respiratory effort and able to speak in complete sentences; no audible wheezes Auscultation: + wheezes; no diminished lung sounds and no crackles Cardiovascular: RRR, no murmur, no edema Extremities: normal capillary refill; no calf tenderness Gastrointestinal (Abdomen): normal bowel sounds, soft, nontender, no hepatosplenomegaly Psychiatric: Orientation: alert, oriented to person and cooperative; + not oriented to place and + not oriented to time Results & Data Results & Data Vital Signs (Past 12 Hours) Vital Signs Temp Pulse Pulse Resp BP Pulse Ox O2 Del Method 04/15/24 15:54 72 04/15/24 15:31 79 18 93 Nasal Cannula 04/15/24 15:26 36.6 C 79 18 159/75 H 93 Nasal Cannula 04/15/24 11:32 36.6 C 84 18 174/74 H 91 Nasal Cannula 04/15/24 10:56 82 18 91 Nasal Cannula 04/15/24 08:00 60 04/15/24 08:00 Nasal Cannula 04/15/24 07:41 64 20 93 04/15/24 07:38 61 17 93 BiPAP 04/15/24 07:23 36.5 C 60 18 154/87 H 90 CPAP O2 Flow Rate 04/15/24 15:54 04/15/24 15:31 2 04/15/24 15:26 2 04/15/24 11:32 2 04/15/24 10:56 2 04/15/24 08:00 04/15/24 08:00 2 04/15/24 07:41 4 04/15/24 07:38 4 04/15/24 07:23 (2) Acute and chronic respiratory failure Respiratory failure complication: hypoxia Qualified Code(s): J96.21 - Acute and chronic respiratory failure with hypoxia
--- NOTE | 2024-04-15 20:44 | Billing Data ---
Date of Service April 15, 2024 Coding Level of Care Code 53685 INT INP/OBS CARE
[2024-04-16 07:26] LABS: Hematocrit (blood only) 36.7 % (37.0-47.0); Hemoglobin 11.3 g/dl (12.0-16.0); Mean Corpuscular Hemoglobin 30.1 pg (25.0-34.0); Mean Corpuscular Hgb Conc 30.8 g/dL (32.0-36.0); Mean Corpuscular Volume 97.9 fL (80.0-100.0); Mean Platelet Volume 9.8 fL (9.4-12.4); Platelet Count 266 K/uL (130-400); RDW Coefficient of Variation 13.4 % (11.5-14.5); RDW Standard Deviation 48.3 fL (36.4-46.3); Red Blood Count 3.75 M/uL (4.20-5.40); White Blood Count 5.78 K/ul (4.8-10.8)
[2024-04-16 07:33] LABS: Calcium 8.9 mg/dl (8.6-10.3); Creatinine Clr Calc Pharmacy 48.3 ml/min; Magnesium 1.5 mg/dl (1.7-2.4); Potassium 4.1 mmol/L (3.5-5.1)
[2024-04-16 07:45] LABS: INR 2.8 (0.9-1.1); Prothrombin Time 27.8 Seconds (9.0-12.0)
[2024-04-16] MEDS: MAGNESIUM SULFATE / D5W 1 GM/100 ML BAG IV SCH (12:28)
--- NOTE | 2024-04-16 12:41 | Hospitalist Progress Note ---
Date of Service April 16, 2024 Assessment & Plan (1) Acute UTI (urinary tract infection): (2) Acute and chronic respiratory failure: (3) Hypernatremia: (4) Hypomagnesemia: (5) Elevated brain natriuretic peptide (BNP) level: Plan: (6) Elevated troponin: Plan 1) Acute UTI (urinary tract infection) - UA consistent with UTI, pt unable to provide history if she is symptomatic - Continue with Ceftriaxone until 04/17/24 - Mildly febrile on admission with temp of 38.3, otherwise hemodynamically stable without leukocytosis - Urine Cx, positive for E. coli (> 100,000 CFU/mL), sensitive to Ceftriaxone; - Blood Cx's, both neg after 48 hrs (2) Acute and chronic respiratory failure - baseline oxygen 4L, which is what she is on presently - CXR with pleural effusions largely unchanged from prior - diffuse wheezing on exam - continue with, PRN Duoneb - s/p 40 IV lasix in the ED- hold on further diuresis for now. Appears euvolic and with hypernatremia some concern she may be a little hypovolemic (3) Hypercarbia - repeat VBG showed hypercarbia again today w/ pt showing signs of somnolence this morning - VBG: pH 7.37, pCO2, 72; HCO3, 42 - BiPap ordered again in case patient has not been using during her stay - patient much more alert since Tuesday, suggesting improved ventilation (4) Hypomagnesemia - Mg, 1.5 <-- 1.8 <-- 1.4, repleted 2 x 1 g, IV w/ MgSO4 - repleted x 1g IV in ED, repeat qAM morning after --> 1.4 --> 2 g MgSO4 ordered - repeat Mg ordered, 16:00 today --> Mg, 2.0 (5) Elevated brain natriuretic peptide (BNP) level - BNP, 225, which appears to be baseline for her - appears euvolemic, CXR stable from prior (6) Elevated troponin #resolved - trop, 44.7 <-- 52 - no ischemic changes on EKG - likely demand ischemia (7) Hx of bioprostheic aortic valve/Hx of PE - one time dose of 6 mg warfarin today (4 pm) - warfarin, 4 mg, daily, scheduled (held today) - trend INR daily and adjust warfarin dose accordingly (goal INR, 2-3) - INR, 2.8 today, continue normal warfarin dose, 4 mg, daily (8) Hypernatremia/Hypovolemic #resolved - Na, 143 <-- 145 <-- 147 - S/p Lasix in ED; some concern she may be a little hypovolemic (9) Skin tag/growth of r. groin area - noted today by nurse, photo taken and shared w/ resident - will try to determine previous PCP Dx/mgmt of this condition, - [facility] seemed largely unaware, they can F/U as an outpt Plan Chronic Stable: Dementia: continue donepezil, continue Zyprexa, soft hand restraints ordered to prevent med equip removal DM2: hold Trulicity, last hemoglobin a1c 7.9 10/2023. SSI ACHS while inpatient, continue Lantus 35 units daily GERD: continue famotidine Hypothyroidism: continue levothyroxine KENAN: BiPap qHS, order re-ordered on 04/14/24 evening Code: Full Diet: T2DM carb consistent Dispo: Med Tele VTE prophylaxis: warfarin Admission and Anticipated Discharge Date Admission Date: April 12, 2024 Supervising Physician Co-Signing Physician Notes I personally examined the patient and verified all marquez points of history and exam, discussed case, and agree with decision making with Dr Wisdom Slow to wake up, but denies complaints once awake. Is aware that she is in the hospital, but thinks she has been here for a month, does not remember why she is here, and notes that she lives in [place]. Resident physician coordinated with her PCP at [facility]. Vitals noted, in general she is awake and alert confused fatigued no distress. HEENT normocephalic atraumatic mucous membranes moist. Breathing unlabored no accessory muscle use good effort. Abdomen soft. Metabolic encephalopathy due to acute on chronic hypercarbic & hypoxic respiratory failure and UTIContinue current antibiotics, [facility] same, but recently was running into a lot of difficulties having her keep the BiPAP on. Hopefully stable enough to return to SNF soon. Metabolic encephalopathy/delirium will likely take a while to resolve. Subjective Patient is a 78 yo F w/ a PMHx of KENAN (on CPAP or BiPAP), AFib, 2nd degree heart block (Mobitz type 1), hypothyroidism, dementia, T2DM, CKD-stage 3, anemia, among other conditions who presented due to staff concerns at home where she lives for respiratory distress/compromise and increased lethargy. The patient's CPAP was removed late today by myself and, initially the patient was very slow in waking up, not wanting to open her eyes. The patient was more alert today, oriented to herself and place (knew she was at a hospital). Patient not oriented to time, but when told it was April, shared that she liked Christmastime. Patient denies any shortness of breath, denies any awareness of wheezing or respiratory. It was explained to patient why she's here in the hospital and that we were concerned she had a UTI and was having increased lethargy and respiratory distress at [facility]. Review of Systems Review of Systems: As per above Constitutional: + fatigue and + daytime sleepiness; no f ever and no chills Respiratory: + wheezing; no dyspnea (patient denies a ny sensation of shortness of breath) Cardiovascular: no chest pain, no dyspnea and no palpitations Gastrointestinal: no abdominal pain, no nausea and no vomiting Genitourinary: no dysuria, no urinary frequency and no urinary urgency Physical Exam Constitutional: + ill appearing and + morbidly obese Respiratory: normal respiratory effort and able to speak in complete sentences; no audible wheezes Auscultation: + wheezes; no diminished lung sounds and no crackles Cardiovascular: RRR, no murmur, no edema Extremities: normal capillary refill; no calf tenderness Gastrointestinal (Abdomen): normal bowel sounds, soft, nontender, no hepatosplenomegaly Psychiatric: Orientation: alert, oriented to person and cooperative; + not oriented to place and + not oriented to time Results & Data Results & Data Vital Signs (Past 12 Hours) Vital Signs Temp Pulse Pulse Resp BP Pulse Ox O2 Del Method 04/16/24 11:37 Nasal Cannula 04/16/24 11:34 36.4 C L 73 18 151/64 H 98 Nasal Cannula 04/16/24 11:24 65 11 L 78 L Room Air 04/16/24 07:45 61 17 95 04/16/24 07:21 61 18 96 BiPAP 04/16/24 07:17 61 04/16/24 07:09 36.1 C L 61 18 127/78 98 CPAP 04/16/24 03:26 36.6 C 62 18 145/75 H 94 Room Air, CPAP 04/16/24 02:42 63 19 96 O2 Flow Rate FiO2 04/16/24 11:37 4 04/16/24 11:34 4.5 04/16/24 11:24 21 04/16/24 07:45 5 04/16/24 07:21 5 04/16/24 07:17 04/16/24 07:09 5 04/16/24 03:26 04/16/24 02:42 4 (2) Acute and chronic respiratory failure Respiratory failure complication: hypoxia Qualified Code(s): J96.21 - Acute and chronic respiratory failure with hypoxia
--- NOTE | 2024-04-16 17:14 | Billing Data ---
Date of Service April 16, 2024 Coding Level of Care Code 33026 SUB INP/OBS CARE
[2024-04-16 22:37] VITALS: TEMP 97.5
--- NOTE | 2024-04-17 06:42 | Discharge Summary ---
Date of Service April 17, 2024 Admission HPI Per Admitting Provider 78 year old female with a past medical history of afib on warfarin, KENAN, acute on chronic resp failure, hypothyroidism, DM2, COPD, GERD, complete heart block s/p pacemaker placement presenting with resp failure. Poor historian. Comes from [facility]. Apparently was using BiPAP throughout the day tonight. This evening was unresponsive, which prompted [facility] to call EMS. Uses a baseline 4L oxygen. Upon EMS arrival she was responsive and mentating appropriately. Pt had no complaints when I saw her. Denies dyspnea. ED Course Significant for: CBC unremarkable. INR= 1.8. VBG with pH= 7.37, pCO2= 77. NA= 147. Mg= 1.4. Trop 52-> 44.7 Procal= 0.06. UA + nitrite, LE, WBC, bacteria. Resp biofire negative. CXR with B/L pleural effusion, stable from prior. EKG with paced rhythm, no acute ischemic changes. S/p IV Mg x 1g, 2g Ceftriaxone, 40mg IV Lasix Admission Exam Per Admitting Provider Constitutional: well-appearing, no acute distress HEENT: NCAT, no conjunctival injection CV: regular rhythm, no murmur appreciated, extremities well-perfused, trace LE edema Resp: CTABL, diffuse wheezes, no increased work of breathing GI: soft, nondistended, nontender MSK: no gross deformities appreciated Skin: warm, dry, no rash appreciated Neuro: alert, oriented, no focal neurologic deficit appreciated Principal Diagnosis complicated UTI Discharge Exam Constitutional + ill appearing and + morbidly obese Respiratory normal respiratory effort and able to speak in complete sentences; no audible wheezes Auscultation: + wheezes; no diminished lung sounds and no crackles Cardiovascular RRR, no murmur, no edema Extremities: normal capillary refill; no calf tenderness Gastrointestinal (Abdomen) normal bowel sounds, soft, nontender, no hepatosplenomegaly Psychiatric Orientation: alert, oriented to person and cooperative; + not oriented to place and + not oriented to time Discharge Data Allergies Allergy/AdvReac Type Severity Reaction Status Date / Time No Known Allergies Allergy Mild Verified 11/28/23 10:17 Consultations 04/12/24 02:52 ED Decision to Admit Stat Ordered Studies 04/14/24 10:40 CT head/brain wo con Stat Hospital Course (1) Acute UTI (urinary tract infection): (2) Acute and chronic respiratory failure: (3) Hypernatremia: (4) Hypomagnesemia: (5) Elevated brain natriuretic peptide (BNP) level: (6) Elevated troponin: Plan 1) Acute UTI (urinary tract infection) - UA consistent with UTI, pt unable to provide history if she is symptomatic - Continued with Ceftriaxone through 04/17/24 AM - Mildly febrile on admission with temp of 38.3, otherwise hemodynamically stable without leukocytosis - Urine Cx, positive for E. coli (> 100,000 CFU/mL), sensitive to Ceftriaxone - Blood Cx's, both neg after 48 hrs (2) Acute and chronic respiratory failure - baseline oxygen 4L, which is what she is on presently - CXR with pleural effusions largely unchanged from prior, diffuse wheezing on exam - continue with, PRN Duoneb - s/p 40 IV lasix in the ED- hold on further diuresis for now. Appears euvolic and with hypernatremia some concern she may be a little hypovolemic (3) Hypercarbia - repeat VBG showed hypercarbia again today w/ pt showing signs of somnolence this morning - VBG: pH 7.37, pCO2, 72; HCO3, 42 - BiPap ordered for patient to use during her stay - patient much more alert since Tuesday, suggesting improved ventilation - continue BiPaP as outpt at [facility] (4) Hypomagnesemia - Mg, 1.9 <-- 2.0 <-- 1.4, repleted 2 x 1 g, IV w/ MgSO4 - repleted x 1g IV in ED, repeat qAM morning after --> 1.4 --> 2 g MgSO4 ordered - repeat Mg ordered, 16:00 today --> Mg, 2.0 (5) Elevated brain natriuretic peptide (BNP) level - BNP, 225, which appears to be baseline for her - appears euvolemic, CXR stable from prior (6) Elevated troponin #resolved - trop, 44.7 <-- 52 - no ischemic changes on EKG - likely demand ischemia (7) Hx of bioprostheic aortic valve/Hx of PE - one time dose of 6 mg warfarin today (4 pm) - warfarin, 4 mg, daily, scheduled (held today) - trend INR daily and adjust warfarin dose accordingly (goal INR, 2-3) - INR, 2.2 today, continue normal warfarin dose, 4 mg, daily (8) Hypernatremia/Hypovolemic #resolved - Na, 142 <-- 145 <-- 147 - S/p Lascelio in ED; some concern she may be a little hypovolemic (9) Skin tag/growth of r. groin area - noted by nurse, photo taken and shared w/ resident, photo then shared w/ PCP at [facility] - will try to determine previous PCP Dx/mgmt of this condition, - [facility] seemed largely unaware, they can F/U as an outpt Plan Chronic Stable: Dementia: continue donepezil, continue Zyprexa, soft hand restraints ordered to prevent med equip removal DM2: hold Trulicity, last hemoglobin a1c 7.9 10/2023. SSI ACHS while inpatient, continue Lantus 35 units daily GERD: continue famotidine Hypothyroidism: continue levothyroxine KENAN: BiPap qHS, order re-ordered on 04/14/24 evening Code: Full Diet: T2DM carb consistent Dispo: Med Tele VTE prophylaxis: warfarin Total Time Total Time Spent Total Time Spent (In Minutes): see attending attestation Discharge Plan Discharge Items Patient Disposition: Transfer Custodial Fac Reason For Visit: Respiratory Distress Discharge Diagnosis: complicated UTI, hypercarbia Activity: Resume your previous activity Non-emergency contact: Primary Care Provider Call non-emergency contact if: you have any medication questions, your symptoms worsen and you have a fever Follow-up/Referrals: [facility] [Primary Care Provider] - Diet: Carb Consistent or DM2 Addtl Attending Provider Instructions: You were admitted to the hospital for a complicated UTI symptoms along with increased lethargy w/ concerns for hypercarbia. You were treated with IV antibiotics along with nightly CPAP/BiPAP. A discharge summary will be sent to your primary care physician to ensure continuity of care. Please bring this discharge summary with you to your next office appointment so that your provider can review it at that time. Follow-up appointments: We have requested a follow-up appointment with your primary care physician within one week of discharge. Please call their office if you do not hear from them. Keep all your follow-up appointments as already scheduled. If you cannot make an appointment, notify your provider. Medications: Your medication list has been reviewed and reconciled upon discharge to ensure accuracy and continuity of care. An updated list of all your medications is included with your hospital discharge paperwork. Please review this list closely, and make note of any changes. We sent a new medication called cefdinir to your pharmacy. Take cefdinir, 300 mg/one tablet, twice a day, for a day and a half more. Take your medications as instructed; do not skip a dose of your medicines. Make sure all of your doctors know every medicine you are taking (including spvj-agn-bpatbxi medicines, vitamins, and supplements). Call your primary care provider before taking any new medicines (including gkei-kfh-sfyjacn medicines, vitamins, and supplements), because some of these may interact with your current medications, or may make your symptoms worse. Tell your primary care provider if you cannot afford your medications. CONTACT YOUR PRIMARY CARE PROVIDER if you experience any of the following: increased lethargy, daytime sleepiness dysuria, increased urinary frequency/urgency Difficulty following your treatment plan, or difficulty taking medications CALL 911 OR GO TO THE EMERGENCY DEPARTMENT if you experience any of the following: Sudden, severe abdominal pain or nausea/vomiting Severe chest pain, or chest pain that radiates (moves) to your jaw or arm Sudden, severe shortness of breath or difficulty breathing Thank you for allowing us to participate in your care Pending Studies at Discharge: No Stand-Alone Forms: My [facility] Skilled Items Patient informed of condition?: Yes DNR: No Discharge Level of Care: Skilled Communicable Disease: No Discharge Prognosis: Stable Lines: None Urinary Catheter: No Medications and DC Order Prescriptions: New cefdinir 300 mg capsule 300 mg PO BID Qty: 3 0RF Continued donepezil 5 mg tablet 5 mg PO DAILY multivitamin Tablet 1 tab PO DAILY sennosides 8.6 mg Tablet 17.2 mg PO DAILY acetaminophen [Tylenol] 325 mg Tablet 650 mg PO Q6 MDD 3G PRN (Reason: Fever Or Pain) omega-3 fatty acids 1,000 mg Capsule 1,000 mg PO BID olanzapine 2.5 mg tablet 2.5 mg PO TID warfarin 4 mg Tablet 4 mg PO HS famotidine 20 mg tablet 20 mg PO BID cyanocobalamin (vitamin B-12) [Vitamin B-12] 500 mcg Tablet 1,000 mcg PO DAILY insulin aspart U-100 [Novolog U-100 Insulin aspart] 100 unit/mL solution 15 unit subcut TIDWMEAL Rx Instructions: HOLD IF MEAL CONSUMED <50% levothyroxine 50 mcg tablet 50 mcg PO DAILY ferrous sulfate 325 mg (65 mg iron) Tablet 325 mg PO DAILY Bengay Ultra Strength 4-30-10 % Cream 1 applic TOPICAL QID PRN (Reason: Pain) Rx Instructions: Apply to shoulders & knees insulin glargine [Lantus Solostar U-100 Insulin] 100 unit/mL (3 mL) insulin pen 35 unit SUBCUT DAILY diclofenac sodium 1 % gel 4 g TOPICAL QID Rx Instructions: B/L KNEES melatonin 5 mg Tablet 5 mg PO HS Trulicity 1.5 mg/0.5 mL pen injector 1.5 mg SUBCUT .Q WED amoxicillin 500 mg capsule 2,000 mg PO UD PRN (Reason: Prophylaxis) Rx Instructions: TAKE 30-60 MINUTES PRIOR TO DENTAL APPOINTMENTS gabapentin 100 mg capsule 100 mg PO TID ipratropium-albuterol 0.5 mg-3 mg(2.5 mg base)/3 mL solution for nebulization 3 ml INHALATION QID Rx Instructions: START 04/05/24 TAKE FOR 2 WEEKS Discharge Orders: Discharge Order (Routine); Ordered 04/17/24 Ordered By: Wally Wisdom Admission Data Admit Date/Time: 04/12/24 03:33 Attending Provider: Yash Clemente Admit Provider: Janae Tapia Primary Care Provider: [facility] Other Providers: Meek Elliott Other Interventions: Discharge Summary Assessment (RN) Last Done: 04/17/24 10:50 Supervising Physician Co-Signing Physician Notes I personally examined the patient and verified all marquez points of history and exam, discussed case, and agree with decision making with Dr Wisdom awake, denies complaints. still not really oriented to situation (although is oriented to place). Vitals noted, in general she is awake and alert pleasantly confused fatigued no distress. HEENT normocephalic atraumatic mucous membranes moist. Breathing unlabored no accessory muscle use good effort. Abdomen soft. Metabolic encephalopathy due to acute on chronic hypercarbic & hypoxic respiratory failure and UTIfinish course of abx PO, continue BiPAP and [facility] notes he has been trying to do the same, but recently was running into a lot of difficulties having her keep the BiPAP on. stable for return to SNF, emphasized importance of bipap to pt, although with delirium i'm doubtful about how much yield this will be. Metabolic encephalopathy/delirium will likely take a while to resolve. Resident Activity Tracking Resident Involvement: Resident Care Provided Care Provided: Adult [facility]
[2024-04-17 07:23] LABS: Hematocrit (blood only) 36.6 % (37.0-47.0); Hemoglobin 11.3 g/dl (12.0-16.0); Mean Corpuscular Hemoglobin 30.1 pg (25.0-34.0); Mean Corpuscular Hgb Conc 30.9 g/dL (32.0-36.0); Mean Corpuscular Volume 97.6 fL (80.0-100.0); Mean Platelet Volume 9.3 fL (9.4-12.4); Platelet Count 266 K/uL (130-400); RDW Coefficient of Variation 13.3 % (11.5-14.5); RDW Standard Deviation 47.8 fL (36.4-46.3); Red Blood Count 3.75 M/uL (4.20-5.40); White Blood Count 5.82 K/ul (4.8-10.8)
[2024-04-17 07:26] VITALS: O2SAT 95
[2024-04-17 07:37] VITALS: RESP 18
[2024-04-17 07:37] LABS: Creatinine Clr Calc Pharmacy 50.7 ml/min; Magnesium 1.9 mg/dl (1.7-2.4); Potassium 4.2 mmol/L (3.5-5.1)
[2024-04-17 07:42] LABS: INR 2.2 (0.9-1.1); Prothrombin Time 22.5 Seconds (9.0-12.0)
[2024-04-17 10:51] VITALS: BP 143/67
[2024-04-17 11:31] VITALS: PULSE 64
--- NOTE | 2024-04-17 12:43 | Billing Data ---
Date of Service April 17, 2024 Coding Level of Care Code 18605 IN/OBS DISCH 30 MIN/LESS
== END 2024-04-17 15:23 | DRG 689 ==
LOC: ED 01:05 → SUATTDRO 03:33 → 2N 03:33